=== PATIENT | male | born 1960 | race Caucasian/White ===

== ENCOUNTER → 2017-08-17 15:02 | Outpatient (REF) | payer OTHER, MEDICAID, SELFPAY | LOC: LAB 15:02 | PROVIDERS: Visit Provider Internal Medicine | DX: L08.9 Local infection of the skin and subcutaneous tissue, unspecified (principal) | CPT/HCPCS: 87070; 87075; 87077; 87186; 87205 ==

== ENCOUNTER → 2017-08-17 15:47 | Outpatient (CLI) | payer OTHER, MEDICAID, SELFPAY | PROVIDERS: Visit Provider Internal Medicine | DX: E11.621 Type 2 diabetes mellitus with foot ulcer (principal); E11.65 Type 2 diabetes mellitus with hyperglycemia; L97.522 Non-pressure chronic ulcer of other part of left foot with fat layer exposed; L08.9 Local infection of the skin and subcutaneous tissue, unspecified | CPT/HCPCS: 11042 ==

== ENCOUNTER → 2017-08-21 13:52 | Outpatient (CLI) | payer OTHER, MEDICAID, SELFPAY | PROVIDERS: Visit Provider Internal Medicine | DX: E11.621 Type 2 diabetes mellitus with foot ulcer (principal); E11.65 Type 2 diabetes mellitus with hyperglycemia; L97.521 Non-pressure chronic ulcer of other part of left foot limited to breakdown of skin; L08.89 Other specified local infections of the skin and subcutaneous tissue | CPT/HCPCS: 97597 ==

== ENCOUNTER → 2017-08-28 09:04 | Outpatient (CLI) | payer OTHER, MEDICAID, SELFPAY ==
--- NOTE | 2017-08-28 | OV.WND_ITS ---
Progress Note Details Patient Name: David Givens Patient Number: [id number] PatientPatientDate: 08/28/2017 Clinician: Verito Rocha Clinician Cosigner: Adina Martinez Physician / Territory Account Executive: Jorge Luis Max SUBJECTIVE Chief Complaint This information was obtained from the patient Diabetic ulcer on left foot. Allergies Vicodin (Reaction: itching), codeine (Severity: Mild, Reaction: stomach upset) HPI This information was obtained from the patient 08/28/17. Seen by Dr. Max. The patient only picked up his levofloxacin 3 days ago that was prescribed for the recent E. coli culture taken from the left plantar foot diabetic ulcer. He does not report adverse side effects nor significant drainage from the ulcer. Of note , his blood sugar today is again over 300 and he states he has rhubarb pie last night. He has an appointment with is PCP next week to discuss adjusting his dose of Lantus. 08/21/17. Seen by Dr. Max. The patient's wound culture taken from the recurrent left 1st MTPJ diabetic ulcer grew E. coli and Streptococcus and he's applying topical gentamicin as recommended. The nurse reports maceration and drainage on his dressing today and his blood sugar is again over 300. 08/17/17. Seen by Dr. Max. The patient returns today with recurrence of the left plantar foot 1st MTPJ diabetic foot ulcer that was very chronic but eventually healed in May of this year. He states a callus has been accumulating and it started to drain last week. He does not report pain in the foot nor swelling but states the 1st toe appeared red yesterday however this has now resolved. He uses a wheelchair for offloading and his blood sugars continue to be over 300. He has a history of poor compliance with his diabetes management and resides in assisted living. 06/02/17. Seen by Dr. Max. The patient does not report drainage or pain associated with chronic left foot diabetic ulcer since last visit. 05/26/17. Seen by Rashad Dupont PA-C. The patient does not report increased drainage from his left foot diabetic ulcer. 05/12/17. Seen by Dr. Max. The patient does not report pain nor increased drainage associated with the chronic left plantar foot diabetic ulcer. He also continues on doxycycline for chronic osteomyelitis of the left MTPJ. 05/05/17. Seen by Rashad Dupont PA-C. The patient reports that he will be moving into [facility] this Thursday. He continues to have high blood sugars and is reportedly compliant with his doxycycline (though he thought he was taking levaquin) and he does not report increased drainage. 04/28/17. Seen by Rashad Dupont PA-C. The patient reports having to walk more than normal because his truck ran out of gas this week. He has not noted any drainage from his left foot diabetic ulcer. He continues on Doxycycline for chronic osteomyelitis. His blood sugars have been >200 this week. Of note, he is wearing regular shoes and does not own shoes that are custom fitted to his foot deformities, which have been present for several years. 04/21/17. Seen by Rashad Dupont PA-C. The patient reports minimal drainage from his left 1st toe diabetic ulcer. Today he reports that he believes he was taking Levaquin recently and will be out of antibiotics today. His most recent X-ray of the left foot shows worsening chronic osteomyelitis. 04/18/17. Seen by Rashad Dupont PA-C. The patient reports decreased drainage from his chronic left 1st toe ulcer. He is nearly out of his Augmentin, which he was taking for his ulcer infection. 04/13/17. Seen Dr. Max. The patient returns to our clinic, after being seen on Thursday, due to increased swelling and erythema of the left first toe over the weekend. His first MTPJ diabetic ulcer has improved considerably over the past few weeks and he has been taking Augmentin for an associated group B strep positive wound culture taken last week. He does not report fevers or pain in the foot and his blood sugars continue to be significantly elevated. 04/10/17. Seen by Rashad Dupont PA-C. The patient reports continued redness and warmth despite taking Augmentin for his strep positive ulcer infection of the left 1st toe. He reports missing some doses of the antibiotic however. His blood sugars have been high since he ran out of insulin a few days ago. He is currently still homeless with housing pending and is able to stay in a local motel on most nights. 04/07/17. Seen by Dr. Max. The patient does not report pain nor increased drainage associated with the chronic left plantar foot diabetic ulcer. He's now on Augmentin again for cellulitis of the left 1st toe diagnosed at his last visit and his wound culture grew Group B Strep. He feels the swelling decreased and he does not report fevers, pain, or adverse side effects of the antibiotics. 04/03/17. Seen by Dr. Max. The patient does not report pain nor decreased drainage associated with the chronic left plantar foot diabetic ulcer however he does feel that his left first toe is red and swollen today. He does not report fevers nor feeling on well and has been off antibiotics were treating chronic osteomyelitis of the first MTPJ for at least a week. His blood sugars continue to be persistently elevated and despite establishing with primary care is provider months ago he has not been able to improve upon his diabetes management. 03/27/17. Seen by Dr. Max. The patient does not report increased drainage or pain associated with the chronic left plantar foot diabetic ulcer since his last visit. His wound culture from the last visit grew group B streptococcus and he's not currently on antibiotics. 03/24/17. Seen Dr. Max. The patient is here for a change of his wound VAC however the staff report increased maceration around the left plantar foot diabetic ulcer. He has now been off of antibiotics for about a week and has been treated for chronic osteomyelitis for the past few months. 03/20/17. Seen by Dr. Max. The patient states his wound VAC stopped working earlier in the week and he has not picked up his prescription of Augmentin that was to treat chronic osteomyelitis associated with the left plantar foot diabetic ulcer. Of note, his blood sugar today is again very elevated at 386. 03/11/17. Seen by Dr. Max. The patient states his wound VAC became dysfunctional 2 days ago. He continues on Augmentin for chronic osteomyelitis associated to chronic left plantar foot diabetic ulcer. He does not report pain nor significant drainage from the ulcer nor side effects from antibiotics. 03/06/17. Seen by Dr. Max. The patient does not report increased drainage or pain associated with the chronic left plantar foot diabetic ulcer since his last visit. He states he's continuing on Augmentin for underlying chronic osteomyelitis of the 1st MTPJ as recommended but will run out of antibiotics early next week. 02/27/17. Seen by Dr. Max. The patient does not report pain or increased drainage associated with chronic left plantar foot diabetic ulcer since last visit. His wound VAC was changed to a SID and he tolerated this well without any issues. He continues on Augmentin for underlying chronic osteomyelitis and his blood sugar is again elevated over 300 today despite establishing with primary care and being started on his insulin and metformin. 02/24/17. Seen by Dr. Max. The patient does not report increased pain nor drainage associated with the chronic left plantar foot diabetic ulcer. His blood sugars are again near 400 however he has seen his primary care provider and has been started on insulin and metformin which he will picker tender from the pharmacy today. He continues on antibiotics also for underlying chronic osteomyelitis of the left foot. 02/20/17. Seen by Dr. Max. The patient does not report increased pain nor drainage associated with the chronic left plantar foot diabetic ulcer. Of note he is homeless and his mobility has been limited due to the winter weather recently. He is a bit noncommittal regarding adherence to his antibiotic regimen that's treating underlying chronic osteomyelitis. His blood sugars again are over 300 and he has a history of noncompliance regarding his diabetes management. 02/17/17. Seen by Rashad Dupont PA-C. The patient reports no increase in drainage from his diabetic foot ulcer of the left foot. He reports that his blood sugar is high today because he drank several slurpees from [employer] last night. 02/13/17. Seen by Dr. Max. The patient states that there has been increased drainage associated with the chronic left plantar foot diabetic ulcer over the past few days. The staff also report a significant malodor today. He admits to missing a few days worth of antibiotics as he's been feeling unwell over the past week with an upper respiratory tract infection.He is also scheduled appointment to establish with his primary care provider and of note his blood sugar is again significantly elevated at 293 today. 02/06/17. Seen by Dr. Max. The patient does not report increased drainage nor pain associated with the chronic left plantar foot diabetic ulcer since his last visit. He continues on Augmentin for chronic osteomyelitis of the foot. He also has an appointment with [facility] at the end of the month to address his homeless situation and will establish with his primary care provider in the first week in February to discuss management of his poorly controlled diabetes and other medical issues. 02/03/17. Seen by Rashad Dupont PA-C. The patient reports stable drainage from his left foot diabetic ulcer with underlying chronic osteomyelitis. He is about to finish his current prescription for osteomyelitis and notes no pain or other new symptoms related to this condition. His blood sugars continue to be >200 and he has not yet made an appointment with his PCP to address this. He says he is running out of insulin and has no refills. He continue to be homeless. 01/30/17. Seen by Dr. Max. The patient does not report increased drainage or pain associated with the chronic left plantar foot diabetic ulcer since his last visit. He continues on antibiotics for underlying chronic osteomyelitis and is her primary side effects. He also has an appointment within the next 3 weeks with his establishing primary care provider and we'll be addressing his diabetes management at that time. He also continues to reside in a motel while he is awaiting a decision on possible long-term placement in a attempt to resolve his homeless situation 01/23/17. Seen by Dr. Max. The patient is a report increased drainage from pain associated with the chronic left plantar foot diabetic ulcers since last visit. He is supposed to be continued on Augmentin for associated underlying chronic osteomyelitis however he admits that he has missed a few doses recently and he is establishing with new primary care provider. He also has a social media manager with him today assisting with his housing and healthcare needs. Of note, the patient admits to having a degree of cognitive dysfunction that frequently affects his ability to manage his diabetes medications, antibiotics, and maintain a stable housing situation. 01/20/17. Seen by Rashad Dupont PA-C. The patient reports continued purulent drainage from his left foot diabetic ulcer. He continues to take antibiotics for his chronic osteomyelitis irregularly and reports that his blood sugars continue to be above 200 most days. He remains homeless though states he may have a lead on some housing assistance. Due to his homelessness he walks on his foot more than is recommended. 01/16/17. Seen by Dr. Max. The patient does not report increased drainage associated with the chronic left plantar foot diabetic ulcer. The staff report however that he has missed a few doses of his antibiotics since treating underlying chronic osteomyelitis. Of note, he is homeless and has been sleeping in his car which is relevant in that the temperatures approached freezing overnight and he's not wearing socks other than the non- skid socks we've provided at the clinic. 01/09/17. Seen by Rashad Dupont PA-C. The patient reports increased drainage in his SNAP canister and he is nearly completed with his course of Cipro. His blood sugars continue to be above >150 when he takes them. 01/06/17. Seen by Rashad Dupont PA-C. The patient reports intermittently taking his antibiotics and has been unable to completely offload his ulcer due to being homeless. He reports that most blood sugars in the past few days have been over 200. 01/02/17. Seen by Dr. Max. The patient does not report increased pain or drainage associated with the chronic left plantar foot diabetic ulcer however the wound VAC leaked earlier in the week and was removed. The patient is noncommittal regarding the use of his antibiotics treating chronic osteomyelitis of the left first MTPJ also. He's not report fevers or feeling unwell is also noncommittal regarding 100% offloading that's been recommended. 12/30/16. Seen by Rashad Dupont PA-C. The patient reports intermittent compliance with his antibiotics. He admits he likes to take two tablets for the first dose and also admits to accidentally skipping doses. His foot ulcer has had increased drainage and increased odor. 12/26/16. Seen by Dr. Max. The patient is now taking ciprofloxacin to treat the recent Pseudomonas positive wound culture taken from the chronic left plantar foot diabetic ulcer. He does not report adverse side effects nor increased pain, swelling, or drainage associated with the ulcer. His blood sugars continue to be over 300 and he has not yet followed up on our recommendation to discuss this with his primary care provider to adjust his insulin. 12/23/16. Seen by Rashad Dupont PA-C. The patient reports he has still not been able to obtain his Levaquin to treat his left foot diabetic ulcer infection. Our office has continued to try and facilitate the prior authorization of this medication without success. The patient does not report fever or chills but does report that drainage has soaked through his sock. 12/19/16. Seen by Dr. Max. The patient does not report increased pain or drainage associated with the chronic left plantar foot diabetic ulcers since his last visit. He is started on levofloxacin for the new pseudomonas positive wound culture has not been able to picker tender the antibiotic due to insurance prior authorization issues. 12/16/16. Seen by Dr. Max. The patient does not report increased pain or drainage associated with the chronic left plantar foot diabetic ulcer since last visit. His wound VAC became dysfunctional over the weekend and he presented to the clinic yesterday at which time it was removed. He states he continues to take his antibiotics for chronic osteomyelitis of the left first MTPJ however we are unable to confirm how many tablets he has left and is been rather noncompliant with this in the past. His blood sugars also continue to be significantly elevated. 12/12/16. Seen by Dr. Max. The patient does not report pain nor increased drainage associated with the chronic left plantar foot diabetic ulcer and he continues on antibiotics to treat associated chronic osteomyelitis of the left 1st MTPJ. 12/09/16. Seen by Dr. Max. The patient reports drainage in his shoe and sock today associated with the chronic left plantar foot diabetic ulcer. He states that the wound VAC however appear to be sealed and operating properly over the past few days. He is on amoxicillin for chronic osteomyelitis of the left first MTPJ and complains of some GI upset. 12/05/16. Seen by Dr. Max. The patient is now on amoxicillin for the recent Streptococcus positive wound culture taken as last visit. This is also treating chronic osteomyelitis of the left foot. He does not report adverse side effects nor pain or increased drainage associated with chronic left plantar foot diabetic ulcer. He is also tolerating negative pressure wound therapy without difficulty. 12/02/16. Seen by Dr. Max. The patient presented to clinic yesterday for a nurse visit following a wound vac dysfunction the previous day. He'd left the foam dressing in place however for the previous 24 hours despite being advised to remove it within 2 hours of it not working. He does not report pain at the chronic left diabetic foot ulcer site and he's been off of his antibiotics for 1-2 days (he's unsure of when he stopped taking them) and states he has a few each of the levofloxacin and Augmentin tablets that have been prescribed recently to treat underlying chronic osteomyelitis of the left foot. 11/28/16. Seen by Dr. Max. The patient does not report pain nor increased drainage associated with the chronic left plantar foot diabetic ulcer. He should've completed his course of levofloxacin by now but states that he has a couple of tablets left over. In relation to this he has also not taken his prior antibiotic prescriptions as scheduled. 11/25/16. Seen by Dr. Max. The patient does not report pain nor increased drainage associated with the chronic left plantar foot diabetic ulcer. He has nearly completed his course of levofloxacin that is treating underlying chronic osteomyelitis of the foot and he does not report adverse side effects. Also, his blood sugars are again over 300 and he states he does have an appointment next week week with his primary care provider to address his diabetes. 11/21/16. Seen by Dr. Max. The patient does not report pain in the left foot nor increased drainage associated with chronic plantar diabetic foot ulcer since his last visit. He continues on levofloxacin for chronic osteomyelitis of the left foot and does not report adverse side effects nor fevers or feeling unwell today. 11/18/16. Seen by Dr. Max. The patient does not report pain in the left foot nor increased drainage associated with chronic plantar diabetic foot ulcer since his last visit. He found the levofloxacin that he lost and restarted this over the weekend. He does not report adverse side effects nor fevers or feeling unwell today. 11/14/16. Seen by Dr. Max. The patient's left foot wound VAC fell off yesterday. He also states that he lost his levofloxacin that's treating chronic osteomyelitis of the left foot but he has started taking the Augmentin that he had leftover from his last prescription. He does not report increased drainage associated with a chronic left plantar foot diabetic ulcer however does report some pain at the site. 11/11/16. Seen by Dr. Max. The patient does not report increased drainage associated with a chronic left plantar foot diabetic ulcer and he continues on levofloxacin for underlying chronic osteomyelitis of the left first MTPJ. He does not reporting adverse side effects of antibiotics, fevers, or feeling unwell. His blood sugars continue to be significantly elevated and he is noncommittal regarding checking them and taking his insulin as prescribed. He also has not seen his primary care provider in the last few months as we recommended. 11/07/16. Seen by Dr. Max. The patient is now on levofloxacin and reports some nausea since starting this. He does not report significant drainage or pain associated with chronic left plantar foot diabetic ulcer however since his last visit. 11/04/16. Seen by Dr. Max. The patient states that he completed his Augmentin 2 days ago and he does not report increased drainage or pain associated with the chronic left plantar foot diabetic ulcer nor the underlying chronic osteomyelitis. His recent wound culture grew Klebsiella which is sensitive to Augmentin and he does not report fevers, feeling unwell, or adverse side effects to the antibiotics. 10/31/16. Seen by Dr. Max. The patient's wound VAC began leaking soon after his last visit and was removed at that time. He continues on Augmentin for chronic osteomyelitis associated with the chronic left plantar foot diabetic ulcer and feels that the pain has resolved over the past week. 10/28/16. Seen by Dr. Max. The patient states that the wound VAC started leaking yesterday he presented to the clinic and it was removed with the left plantar foot ulcer filled with alginate. He states he continues to take his antibiotics for chronic osteomyelitis of the foot and does not report adverse side effects. His blood sugars continue to be consistently over 200 however have improved somewhat as they were typically over 300 previously. He does not report fevers, pain in the foot, nor feeling unwell in general. 10/24/16. Seen by Dr. Max. The patient states he has restarted taking his antibiotics as prescribed and he does not report significant drainage associated with chronic left foot diabetic ulcer since his last visit. He also reports the pain has improved and he is not reporting fevers or feeling unwell. He is taking antibiotics for chronic osteomyelitis associated with the ulcer. 10/21/16. Seen by Dr. Max. The patient is not very engaging today and he is noncommittal regarding whether he is taking his antibiotics as prescribed. His recent wound culture grew Klebsiella sensitive to Augmentin however he states that his left foot pain associated with the diabetic ulcer and chronic osteomyelitis has increased over the past week. He does not report fevers however nor feeling unwell and his negative pressure wound therapy was held at last visit due to deterioration of the ulcer and concern for change of infection. 10/17/16. Seen by Dr. Max. The patient reports some pain associated with the chronic left plantar foot diabetic ulcer since his last visit staff report increased maceration in the nunu-ulcer area. He does not report fevers however states that he's not been taking his antibiotic entirely as prescribed. His blood sugars are over 300 again today he states he has been offloading the foot as recommended. 10/14/16. Seen by Dr. Max. The patient reports being more active on his feet the past few days despite wearing a snap negative pressure wound dressing. Does not report increased drainage associated with the left plantar foot diabetic ulcer and continues on Augmentin for chronic osteomyelitis of the foot. His blood sugars are improving somewhat into the 200s and he states he is checking these and taking insulin as recommended. He has not yet followed up with his primary care provider as recommended however in terms of his diabetes management. 10/10/16. Seen by Dr. Max. The patient has restarted his Augmentin as recommended that's treating chronic osteomyelitis of the left foot. He does not report increased drainage associated with the left plantar foot diabetic ulcer since his last visit. His blood sugars continue to be significantly elevated and he has not yet scheduled and appointment with his primary care provider to discuss this. 10/07/16. Seen by Dr. Max. The patient does not report increased drainage associated with the chronic left foot diabetic ulcer. He continues on negative pressure wound therapy and states he forgot to picker tender his antibiotics that are treating chronic osteomyelitis in the foot. His blood sugars continue to be significantly elevated and is noncommittal regarding checking his blood sugars and taking his insulin routinely. 10/03/16. Seen by Dr. Max. The patient states he is nearly out of antibiotics that have been treating chronic osteomyelitis the left foot. He does not report any problems regarding the overlying diabetic foot ulcer nor negative pressure wound therapy. Also, his blood sugars 381 today and has been significantly elevated for months. This is despite his recent statement that he's been checking blood sugars and taking his insulin routinely. 09/30/16. Seen by Dr. Max. The patient does not report significant drainage or other acute issues associated with the chronic left plantar foot diabetic ulcers since his last visit. He continues on antibiotics for underlying osteomyelitis of the foot and does not report fevers or other side effects of antibiotics. He states his blood sugars are improving and are in the 200s this morning and that he's been checking them and taking his insulin as recommended. 09/26/16. Seen by Dr. Max. The patient does not report pain nor increased drainage associated with chronic left plantar foot diabetic ulcer and underlying chronic osteomyelitis since his last visit. Of note, he admits to not necessarily taking all of his antibiotics as recommended and his recent culture grew Klebsiella for which he is to be taken Augmentin. His blood sugars also continue to be elevated over 300 despite the fact he states he's been checking them taking his insulin. 09/23/16. Seen by Dr. Max. The patient does not report increased drainage or other acute changes regarding his chronic left plantar foot diabetic ulcer. He is checking his blood sugars and taking insulin however states that they still are often times over 300. He continues on Augmentin for underlying osteomyelitis of the foot and does not report adverse side effects. 09/21/16. Seen by Rashad Dupont PA-C. The patient reports that he continues to have high blood sugars despite taking 40 units twice daily of insulin. He reports occasionally missing a dose but tries to comply with his orders. He believes he has a follow up appointment soon with his PCP regarding diabetes but is unsure of the date. 09/15/16. Seen by Rashad Dupont PA-C. The patient reports continued difficulty sleeping due to difficulty breathing while supine, though he feels this is somewhat improved as he is reducing his fluid intake. He reports blood sugars consistently above 150 and believes he has an appointment with his PCP to review his diabetic regimen soon. He continues on augmentin for his osteomyelitis and his drainage from his left foot ulcer has been stable. 09/09/16. Seen by Dr. Max. The patient is not very engaging today however does not report any new problems regarding the chronic left plantar foot diabetic ulcer nor the wound VAC. He states he continues to take Augmentin as recommended for associated chronic osteomyelitis of the left first MTPJ and he is offloading as much as possible. He states he is also checking his blood sugars and taking his insulin as recommended however he has been quite noncompliant with this in the past. 09/05/16. Seen by Dr. Max. The patient does not report pain or increased drainage associated with the chronic left plantar foot diabetic ulcer since his last visit. He states he continues on Augmentin for osteomyelitis of the foot and does not report adverse side effects although he's not had a recent Rx written. His recent wound culture grew Klebsiella and group B Strep. 09/02/16. Seen by Rashad Dupont PA-C. The patient reports continued thirst and continued intake of a large amount of water. He reports that it is very difficult for him to resist drinking large amounts of fluids. His blood sugars continue to be over 200 and his chronic left foot diabetic ulcer has had stable drainage. He continues on oral antibiotics for his chronic osteomyelitis of the left foot. 08/29/16. Seen by Dr. Max. The patient does not report pain or increased drainage associated with the chronic left plantar foot diabetic ulcer since his last visit. He continues on Augmentin for osteomyelitis of the foot and does not report adverse side effects. His shortness of breath has improved as has his leg swelling and his recent ECHO showed only some diastolic dysfunction. He does report being very thirsty and drinking over a gallon of water and flavored drinks daily. His blood sugars have also been very poorly controlled over the past few months. 08/22/16. Seen by Dr. Max. The patient does not report pain or increased drainage associated with the chronic left plantar foot diabetic ulcer since his last visit although he's not very engaging today. He continues on Augmentin for osteomyelitis of the foot and does not report adverse side effects. Of note, his shortness of breath has improved as has his leg swelling and his ECHO showed only some diastolic dysfunction. He's not yet discussed this with is PCP however. 08/14/16. Seen by Dr. Max. The patient does not report pain or increased drainage associated with the chronic left plantar foot diabetic ulcer since his last visit. He continues on antibiotics for osteomyelitis of the foot and does not report adverse side effects. 08/19/16. Seen by Rashad Dupont PA-C. The patient reports continued high blood sugars, with all readings so far above 200. He reports stable drainage from her diabetic foot ulcer with underlying osteomyelitis and he has an upcoming echocardiogram to assess his orthopnea, which he reports is somewhat improved recently. He continues on augmentin for his underlying osteomyelitis. 08/15/16. Seen by Dr. Max. The patient does not report pain or significant drainage associated with chronic left plantar foot diabetic ulcer since his last visit. He is tolerating negative pressure wound therapy without difficulty and continues on antibiotics for acute osteomyelitis of the left first metatarsal. His blood sugars are over 400 today and he's non- committal regarding adherence to his insulin regimen. 08/12/16. Seen by Dr. Max. The patient reports that the SNAP wound VAC has not been working for the past day or so however he did not take the dressing off as recommended. The staff reports significant maceration associated with the chronic left plantar foot diabetic ulcer and he continues on antibiotics for underlying osteomyelitis of the first metatarsal. He is not checking blood sugars routinely and they continued to be significantly elevated over 200. He does not report fevers, pain in the foot, or feeling unwell. 08/07/16. Seen by Dr. aMx. The patient does not report pain or significant drainage associated with chronic left plantar foot diabetic ulcer since his last visit. He is tolerating negative pressure wound therapy without difficulty and continues on antibiotics for acute osteomyelitis of the left first metatarsal. 08/04/16. Seen by Rashad Dupont PA-C. The patient reports continued difficulty sleeping due to shortness of breath when supine. He reports continued drainage from his Rivera grade III diabetic ulcer of the left foot. He continues to have very high blood sugars, with most readings above 200. 07/31/16. The patient does not report pain or significant drainage associated with chronic left plantar foot diabetic ulcer since his last visit. He is tolerating negative pressure wound therapy without difficulty and continues on antibiotics for acute osteomyelitis of the left first metatarsal. 07/28/16. Seen by Rashad Dupont PA-C. The patient reports continued drainage from his left foot Rivera grade III diabetic ulcer with underlying osteomyelitis, confirmed again recently on MRI. His blood sugars continue to be mostly above 250. He continues on antibiotics (augmentin until 08/08/16) to treat the chronic infection of this ulcer and to treat his osteomyelitis. 07/25/16. Seen by Dr. Max. The patient does not report pain or significant drainage associated with chronic left plantar foot diabetic ulcer since his last visit. His wound culture from the last visit grew Enterococcus and Strep group B. He is tolerating negative pressure wound therapy without difficulty and continues on antibiotics for acute osteomyelitis of the left first metatarsal. He does not check his blood sugars regularly and is noncommittal regarding taking his insulin as prescribed. He is also not wearing his offloading shoe as recommended. He does not report adverse side effects from the antibiotics, fevers, or feeling unwell in general. 07/23/16. Seen by Dr. Max. The patient does not report increased drainage or pain associated with the chronic left plantar foot diabetic ulcer and he's tolerated the wound VAC over the past few days without any difficulty. He continues on antibiotics for acute osteomyelitis of the left first metatarsal and does not report adverse side effects. He was seen by his primary care provider to establish care and specifically to address his diabetes and some recent shortness of breath which she states is now resolved. He states today that his medications have not been adjusted and he will see his primary care provider in 2 weeks again. His blood sugars continue to be elevated over 300 consistently. 07/21/16. Seen by Rashad Dupont PA-C. The patient reports severe shortness of breath with exertion and when supine, which begain 3 days ago and has worsened. The patient reports fevers and chills but denies chest pain. He has noted increased lower extremity edema during this time as well. He reports that he is unable to sleep because of the shortness of breath, but occasionally passes out from exhaustion. 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 07/17/16. Seen by Dr. Max. The patient continues on Bactrim for osteomyelitis of the left foot and he continues with negative pressure wound therapy to treat the overlying diabetic ulcer. His blood sugars continue to be significantly elevated despite increase his Lantus to 30 units daily. He will establish with his primary care provider early next week. 07/14/16. Seen by Dr. Mxa. The patient continues on Bactrim for osteomyelitis of the left first metatarsaland has tolerated the wound VAC treating the overlying diabetic ulcer without any issues. His blood sugar is 391 today and his Lantus has recently been increased to 20 units daily. He does not report fevers, feeling unwell, or adverse side effects from the Bactrim. 06/30/16. Seen by Dr. Max. The patient continues on antibiotics for his chronic and infected left plantar foot diabetic ulcer. His MRI confirms osteomyelitis of the head of the first metatarsal. He is tolerating negative pressure wound therapy however remains somewhat noncompliant in terms of removal of the wound VAC if it's not working. He is not routinely checking his blood sugars however but states he is taking is 10 units of Lantus as prescribed. He will establish with a primary care provider in about 2 weeks and he does not report fevers or feeling unwell in general. 07/07/16. Seen by Rashad Dupont PA-C. The patient reports that he completed his MRI examination of his left foot today, just before this appointment. He reports continued drainage from his chronic diabetic foot ulcer of the left foot. Due to a labelling error, the wound cultures taken at his last visit were not processed. 07/03/16. Seen by Dr. Max. The patient disconnected his wound vac 2 days ago however did not remove the dressing as instructed. He's also not checking his blood sugars or taking insulin as prescribed and his blood sugars continue to be frequently elevated over 300 while in the clinic. He does not report pain or increased drainage associated with the chronic left foot diabetic ulcer, nor fevers or feeling unwell, since his last visit. 06/30/16. Seen by Rashad Dupont PA-C. The patient reports no increase in drainage from his chronic left foot diabetic ulcer. He reports better compliance with his insulin and glucose checks and reports that many of his sugars are still above 300. 06/26/16. Seen by Dr. Max. The patient does not report any problems regarding his wound VAC and he continues on doxycycline without reporting adverse side effects for the chronic infection of the left plantar foot diabetic ulcer. He's not routinely checking his blood sugars nor taking his insulin as recently prescribed and he's to establish with his new PCP within one month. 06/23/16. Seen by Rashad Dupont PA-C. The patient reports high blood sugars in the past few days despite being prescribed insulin by Dr. Max. The patient admits to forgetting more than 1/2 of his insulin doses since he was prescribed them. His left plantar foot diabetic ulcer has had stable and continued drainage.. 06/20/16. Seen by Dr. Max. The patient does not report any problems regarding his wound VAC and he continues on antibiotics for the chronic infection of the left plantar foot diabetic ulcer. He started insulin recently and states his blood sugars are between 200 and 300 and he is offloading with a wheelchair as much as possible. 06/18/16. Seen by Dr. Max. The patient does not report problems regarding the negative pressure dressing that was placed 2 days ago to treat the chronic left plantar foot diabetic ulcer. He does not report pain in the foot nor increased drainage and he continues on doxycycline for a chronic wound infection. He's also started taking his long acting insulin as prescribed last week and states his appointment to establish care with a new PCP is in about a month. His blood sugars continue to be elevated over 200 however. 06/16/16. Seen by Rashad Dupont PA-C. The patient reports continued blood sugars above 300 and continued drainage from his left plantar foot diabetic ulcer. 06/09/16. Seen by Rashad Dupont PA-C. The patient reports that he has been leaving his leg dependant when he has been sleeping and is noted to have experienced weight gain since his last appointment. He continues to have very high blood sugars and now has an appointment with primary care to establish care. 06/06/16. Seen by Dr. Max. The patient does not report pain nor significant drainage associated with the chronic left foot diabetic ulcer over the past week. Also, his blood sugars are again over 200 today. 05/29/16. Seen by Dr. Max. The patient does not report pain nor significant drainage associated with the chronic left foot diabetic ulcer over the past week. Although he told the staff that he's discussed his diabetes management with a PCP he tells me has not yet re- established with a PCP as we've recommended so has not been checking blood sugars nor taking diabetes medication. 05/22/16. Seen by Dr. Max. The patient does not report pain nor significant drainage associated with the chronic left foot diabetic ulcer over the past week. 05/19/16. Seen by Rashad Dupont PA-C. The patient reports increased drainage from his chronic left foot diabetic ulcer since his last evaluation. The patient is not wearing his [employer] boot to offload his ulcer and he reports very high blood sugars in the previous week. The patient continues to be homeless and reports that he was focused on staying warm during the past few days. 05/12/16. Seen by Rashad Dupont PA-C. The patient reports intermittent compliance with his levaquin usage and has not seen [facility] yet for assessment and fitting of his [employer] boot. In addition he reports a new ulcer on his left 5th toe which began a couple days ago. 05/08/16. Seen by Dr. Max. The patient does not report significant drainage nor pain associated with the chronic left plantar foot diabetic ulcer. He continues on antibiotics for an associated wound infection and does not report adverse side effects.He is also not checking his blood sugars routinely and is currently homeless and living in his car. 05/05/16. Seen by Rahsad Dupont PA-C. The patient returns to our clinic after spending 12 weeks at [facility]. He reports that his left plantar foot diabetic ulcer never fully healed. He also reports that he has a [employer] boot that he thinks still fits but is not wearing it. Currently he is on Bactrim and Cipro for an ulcer infection and reports missing doses frequently of these medications. 07/17/[address] Max. The patient does not report increased drainage, swelling, or erythema associated with his left plantar foot diabetic ulcer. He continues to offload the foot with a cane and wheelchair and is compliant with his antibiotic and diabetes regimens without reporting adverse side effects. 07/13/14 The patient's recent wound culture grew MRSA sensitive to doxycycline. He does not report increased pain, swelling, or drainage associated with the left plantar foot diabetic ulcer nor does he report fever, chills, or shakes as he has previously. He's compliant with his antibiotic and diabetes medications and states his blood sugars are around 150- 200. He's also met with his new PCP in the past week to establish care. 07/06/14 The patient does not report pain in either foot nor fever or chills. He states he's been compliant with his doxycycline and ciprofloxacin regimen as well as his diabetes regimen. He's not yet established with a PCP but has an appointment in October with a provider in [place]. He also states he does not leave his car very often and so has not had a need to use the wheelchair for offloading. 07/03/14 The patient reports that he is taking his antibiotics regularly now and does not report shakes fever or chills. He would prefer a PCP in [place] to one in [place] if he is not able to see someone in town. 06/29/14 The patient states he's been mostly compliant with his antibiotics that now includes doxycycline plus cipro. He feels the left foot swelling and erythema are beginning to improve. He's also taking a lower dose of metformin along with his glipizide and he does not report 'shakes' as he did at the last visit. 06/26/14 The patient states he experienced some intermittent 'shakes' a couple of day ago and felt it was do to his metformin so he stopped taking it. He does not report fever, sweats, or chills however. He says he's been taking cipro as prescribed but he feels the left foot swelling and erythema are slowly progressing. He also admits to not using his wheelchair or can as recommended and walking a good bit over the weekend. 06/22/14 The patient's new to our clinic but was seen twice on consult as an inpatient over the past month. He's a homeless gentleman with a large left 1st MTPJ plantar ulcer and a smaller right lateral 5th MT ulcer. He's now on a 6 week course of ciprofloxacin based on his MRI that showed possible early osteomyelitis in the left 1st MTPJ sesmoid bone. Deep wound cultures from 06/16/14 grew Group A Streptococcs. He feels the swelling and erythema have improved in the left forefoot as has the drainage. He also states his subjective fevers have resolved. He's a newly diagnosed diabetic and is now on Metformin and Glipizide with an A1c 10.2 on 05/17/14 and he states he's compliant with his medication regimen. His arterial doppler showed only mild atherosclerotic disease in the right SFA. Of note, he's not yet established with a PCP at the [facility] and he states he use a wheelchair for mobilizing except for very short walks when he uses a cane to help offload the left foot. Past Medical History This information was obtained from the patient Patient has a medical history of: Diabetes, type II (A1c > 14 05/23/16; 10.2 06/06/14) Osteomyelitis (left 1st MTPJ sesmoid) Homeless Diabetic foot ulcer - 06/06/2014 (left 1st MTPJ; Rivera grade III with osteomyelitis; MRSA positive deep wound culture 07/11/14) Diabetic foot ulcer - 06/22/2014 (right 5th MT; Rivera grade I) Complaints and Symptoms This information was obtained from the patient Patient complains of: General Notes: I have reviewed and concur with the Review of Systems and Past Family Social History documents completed by the clinician, I have reviewed and concur with the Wound Assessment document completed by the clinician Integumentary (Hair/Skin/Nails): Open Sore Musculoskeletal: Assistive Devices Neurological: Abnormal Gait, Loss of Protective Sensation Prior Wound History: Drainage, Erythema, Malodor Psychiatric: Depression Patient denies complaints or symptoms related to: Cardiovascular (Central): Irregular heart beat Cardiovascular (Central/Peripheral): Lower extremity (leg) resting pain, Lower extremity (leg) swelling Cardiovascular (Peripheral) Constitutional Symptoms (General Health): Chills, Fever, Marked Weight Change Ear/Nose/Mouth/Throat: Hearing Loss / Aid Gastrointestinal (GI): Nausea / Vomiting, Stomach/abdominal pain Hematologic/Lymphatic: Bleeding / Clotting Disorders, Bleeding Tendency Musculoskeletal: Joint Swelling, Muscle Weakness Prior Wound History: Bleeding, Pain Psychiatric: Memory Loss Respiratory: Oxygen Use, Shortness of Breath OBJECTIVE Constitutional BP elevated; Afebrile; Alert and in no distress. Dishelved. Height/Length: 72 in (182.88 cm), Weight: 268.5 lbs (122.05 kgs), BMI: 36.4, Temperature: 98.5 ?F (36.94 ?C), Pulse: 94 bpm, Respiratory Rate: 18 breaths/min, Blood Pressure: 154/81 mmHg, Capillary Blood Glucose: 310 mg/dl, Pulse Oximetry: 95 %. Vital Signs Notes: Glucose per patient Ears, Nose, Mouth, and Throat: No clinically significant hearing loss on informal examination. Respiratory: No respiratory distress. Even respirations and without use of accessory muscles.. Cardiovascular: Pedal pulses 2+ on affected limb. Affected extremity exhibits no peripheral edema or cyanosis, is warm, and is well perfused. Capillary refill is less than 2 seconds. Gastrointestinal (GI): Obese. Nondistended.. Musculoskeletal: Severe left foot Charcot deformity. Integumentary (Hair, Skin) No periwound erythema, warmth, or significant drainage. No periwound rashes appreciated or noted otherwise.. Refer to appropriate clinician wound documentation for this visit; left foot ulcer extends to dermis with base partially covered with pink granulation, remainder fibrin and slough. Maceration and callus present in the periwound area. Wound #5 Left, Plantar Foot is a chronic Rivera Grade 2 Diabetic Ulcer and has received a status of Not Healed. Subsequent wound encounter measurements are 0.2cm length x 0.2cm width x 0.2cm depth, with an area of 0.04 sq cm and a volume of 0.008 cubic cm. No tunneling has been noted. No sinus tract has been noted. No undermining has been noted. There is a scant amount of serous drainage noted which has no odor. The patient reports no wound pain due to the wound being insensate. The wound margin is callus. Wound bed has No epithelialization, Yes eschar, Yes slough, Yes bright red, pink, firm granulation. The periwound skin texture is normal. The periwound skin color is normal. The periwound skin exhibited: Dry/Scaly. The periwound skin did not exhibit: Moist, Maceration. The temperature of the periwound skin is WNL. Periwound skin does not exhibit signs or symptoms of infection. Local Pulse is Palpable. Neurological: Cranial nerves grossly intact with symmetric function normal by informal observation.. ASSESSMENT Active Problems ICD-10 (Encounter Diagnosis) L97.522 - Non-pressure chronic ulcer of other part of left foot with fat layer exposed (Encounter Diagnosis) E11.621 - Type 2 diabetes mellitus with foot ulcer (Encounter Diagnosis) E11.65 - Type 2 diabetes mellitus with hyperglycemia (Encounter Diagnosis) L08.89 - Other specified local infections of the skin and subcutaneous tissue (Encounter Diagnosis) Z91.19 - Patient's noncompliance with other medical treatment and regimen PROCEDURES Wound #5 Wound #5 (Diabetic Ulcer) is located on the left, plantar foot. A selective debridement with a total area debrided of 0.04 sq cm was performed by Jorge Luis Max MD. Dermis and Epidermis were removed. The following instrument(s) were used: curette. No anesthetic was required due to loss of sensation. A time out was conducted prior to the start of the procedure. No bleeding occurred. The procedure was tolerated well with a loss of sensation throughout and a loss of sensation following the procedure. Post Debridement Measurements: 0.2cm length x 0.2cm width x 0.2cm depth; with an area of 0.04 sq cm and a volume of 0.008 cubic cm; PLAN Wound Orders: Wound #5 Left, Plantar Foot Topical Treatments Antibiotic/Antimicrobial Ointment/Cream. - Gentamicin ointment Dressings Primary dressing: - Foam Cover and secure with: - Tape Change Dressing: - Daily Additional Orders: Cleanser Cleanse Wound: - Normal Saline and gauze. May Shower. - Please avoid getting tap water in wound or on dressing. Cover while in shower. Follow-Up Appointments Return Appointment: - - Thursday Other information: If you develop fever, chills, increased pain, drainage, redness or swelling please call our office. If after hours, respond to the ER. Should you experience any significant changes in your wound(s) or have any questions regarding your home care instructions please contact the [facility] @ [phone]. If after hours, contact your primary care physician or go to the hospital emergency room. Scribing Attestation I attest, as the nurse, that I scribed these orders for the physician. General Notes: Please finished taking your antibiotic as prescribed I've reviewed the clinician's documentation and agree with the evaluation and plan as written. In addition, the patient's ulcer demonstrates evidence of non-viable devitalized tissue which will continue to benefit from sharp debridement to help promote granulation and expedite healing. Also, the patient will complete his course of antibiotics as prescribed and he' s been encouraged to follow up with his PCP regarding his diabetes management and frequently elevated blood sugars. Electronic Signature(s) Signed By: Date: Jorge Luis Max MD 08/30/2017 14:27:05 Entered By: Jorge Luis Max on 08/28/2017 12:46:35
== END ==
PROVIDERS: Visit Provider Internal Medicine
DX: E11.621 Type 2 diabetes mellitus with foot ulcer (principal); E11.65 Type 2 diabetes mellitus with hyperglycemia; L97.521 Non-pressure chronic ulcer of other part of left foot limited to breakdown of skin; L08.89 Other specified local infections of the skin and subcutaneous tissue; Z91.19 Patient's noncompliance with other medical treatment and regimen
CPT/HCPCS: 97597

== ENCOUNTER → 2017-09-04 09:17 | Outpatient (CLI) | payer OTHER, MEDICAID, SELFPAY ==
--- NOTE | 2017-09-04 | OV.WND_ITS ---
Progress Note Details Patient Name: David Givens Patient Number: [id number] PatientPatientDate: 09/04/2017 Clinician: Adina Martinez Physician / Bridges Supervisor: Henrry Dupont SUBJECTIVE Chief Complaint This information was obtained from the patient Diabetic ulcer on left foot. Allergies Vicodin (Reaction: itching), codeine (Severity: Mild, Reaction: stomach upset) HPI This information was obtained from the patient 09/04/17. Seen by Rashad Dupont PA-C. The patient reports minimal drainage from his left foot ulcer. His blood sugars continue to be >150 on most days. 08/28/17. Seen by Dr. Max. The patient only picked up his levofloxacin 3 days ago that was prescribed for the recent E. coli culture taken from the left plantar foot diabetic ulcer. He does not report adverse side effects nor significant drainage from the ulcer. Of note , his blood sugar today is again over 300 and he states he has rhubarb pie last night. He has an appointment with is PCP next week to discuss adjusting his dose of Lantus. 08/21/17. Seen by Dr. Max. The patient's wound culture taken from the recurrent left 1st MTPJ diabetic ulcer grew E. coli and Streptococcus and he's applying topical gentamicin as recommended. The nurse reports maceration and drainage on his dressing today and his blood sugar is again over 300. 08/17/17. Seen by Dr. Max. The patient returns today with recurrence of the left plantar foot 1st MTPJ diabetic foot ulcer that was very chronic but eventually healed in May of this year. He states a callus has been accumulating and it started to drain last week. He does not report pain in the foot nor swelling but states the 1st toe appeared red yesterday however this has now resolved. He uses a wheelchair for offloading and his blood sugars continue to be over 300. He has a history of poor compliance with his diabetes management and resides in assisted living. 06/02/17. Seen by Dr. Max. The patient does not report drainage or pain associated with chronic left foot diabetic ulcer since last visit. 05/26/17. Seen by Rashad Dupont PA-C. The patient does not report increased drainage from his left foot diabetic ulcer. 05/12/17. Seen by Dr. Max. The patient does not report pain nor increased drainage associated with the chronic left plantar foot diabetic ulcer. He also continues on doxycycline for chronic osteomyelitis of the left MTPJ. 05/05/17. Seen by Rashad Dupont PA-C. The patient reports that he will be moving into [facility] this Thursday. He continues to have high blood sugars and is reportedly compliant with his doxycycline (though he thought he was taking levaquin) and he does not report increased drainage. 04/28/17. Seen by Rashad Dupont PA-C. The patient reports having to walk more than normal because his truck ran out of gas this week. He has not noted any drainage from his left foot diabetic ulcer. He continues on Doxycycline for chronic osteomyelitis. His blood sugars have been >200 this week. Of note, he is wearing regular shoes and does not own shoes that are custom fitted to his foot deformities, which have been present for several years. 04/21/17. Seen by Rashad Dupont PA-C. The patient reports minimal drainage from his left 1st toe diabetic ulcer. Today he reports that he believes he was taking Levaquin recently and will be out of antibiotics today. His most recent X-ray of the left foot shows worsening chronic osteomyelitis. 04/18/17. Seen by Rashad Dupont PA-C. The patient reports decreased drainage from his chronic left 1st toe ulcer. He is nearly out of his Augmentin, which he was taking for his ulcer infection. 04/13/17. Seen Dr. Max. The patient returns to our clinic, after being seen on Thursday, due to increased swelling and erythema of the left first toe over the weekend. His first MTPJ diabetic ulcer has improved considerably over the past few weeks and he has been taking Augmentin for an associated group B strep positive wound culture taken last week. He does not report fevers or pain in the foot and his blood sugars continue to be significantly elevated. 04/10/17. Seen by Rashad Dupont PA-C. The patient reports continued redness and warmth despite taking Augmentin for his strep positive ulcer infection of the left 1st toe. He reports missing some doses of the antibiotic however. His blood sugars have been high since he ran out of insulin a few days ago. He is currently still homeless with housing pending and is able to stay in a local motel on most nights. 04/07/17. Seen by Dr. Max. The patient does not report pain nor increased drainage associated with the chronic left plantar foot diabetic ulcer. He's now on Augmentin again for cellulitis of the left 1st toe diagnosed at his last visit and his wound culture grew Group B Strep. He feels the swelling decreased and he does not report fevers, pain, or adverse side effects of the antibiotics. 04/03/17. Seen by Dr. Max. The patient does not report pain nor decreased drainage associated with the chronic left plantar foot diabetic ulcer however he does feel that his left first toe is red and swollen today. He does not report fevers nor feeling on well and has been off antibiotics were treating chronic osteomyelitis of the first MTPJ for at least a week. His blood sugars continue to be persistently elevated and despite establishing with primary care is provider months ago he has not been able to improve upon his diabetes management. 03/27/17. Seen by Dr. Mxa. The patient does not report increased drainage or pain associated with the chronic left plantar foot diabetic ulcer since his last visit. His wound culture from the last visit grew group B streptococcus and he's not currently on antibiotics. 03/24/17. Seen Dr. Max. The patient is here for a change of his wound VAC however the staff report increased maceration around the left plantar foot diabetic ulcer. He has now been off of antibiotics for about a week and has been treated for chronic osteomyelitis for the past few months. 03/20/17. Seen by Dr. Max. The patient states his wound VAC stopped working earlier in the week and he has not picked up his prescription of Augmentin that was to treat chronic osteomyelitis associated with the left plantar foot diabetic ulcer. Of note, his blood sugar today is again very elevated at 386. 03/11/17. Seen by Dr. Max. The patient states his wound VAC became dysfunctional 2 days ago. He continues on Augmentin for chronic osteomyelitis associated to chronic left plantar foot diabetic ulcer. He does not report pain nor significant drainage from the ulcer nor side effects from antibiotics. 03/06/17. Seen by Dr. Max. The patient does not report increased drainage or pain associated with the chronic left plantar foot diabetic ulcer since his last visit. He states he's continuing on Augmentin for underlying chronic osteomyelitis of the 1st MTPJ as recommended but will run out of antibiotics early next week. 02/27/17. Seen by Dr. Max. The patient does not report pain or increased drainage associated with chronic left plantar foot diabetic ulcer since last visit. His wound VAC was changed to a SID and he tolerated this well without any issues. He continues on Augmentin for underlying chronic osteomyelitis and his blood sugar is again elevated over 300 today despite establishing with primary care and being started on his insulin and metformin. 02/24/17. Seen by Dr. Max. The patient does not report increased pain nor drainage associated with the chronic left plantar foot diabetic ulcer. His blood sugars are again near 400 however he has seen his primary care provider and has been started on insulin and metformin which he will pick up operator from the pharmacy today. He continues on antibiotics also for underlying chronic osteomyelitis of the left foot. 02/20/17. Seen by Dr. Max. The patient does not report increased pain nor drainage associated with the chronic left plantar foot diabetic ulcer. Of note he is homeless and his mobility has been limited due to the winter weather recently. He is a bit noncommittal regarding adherence to his antibiotic regimen that's treating underlying chronic osteomyelitis. His blood sugars again are over 300 and he has a history of noncompliance regarding his diabetes management. 02/17/17. Seen by Rashad Dupont PA-C. The patient reports no increase in drainage from his diabetic foot ulcer of the left foot. He reports that his blood sugar is high today because he drank several slurpees from [employer] last night. 02/13/17. Seen by Dr. Max. The patient states that there has been increased drainage associated with the chronic left plantar foot diabetic ulcer over the past few days. The staff also report a significant malodor today. He admits to missing a few days worth of antibiotics as he's been feeling unwell over the past week with an upper respiratory tract infection.He is also scheduled appointment to establish with his primary care provider and of note his blood sugar is again significantly elevated at 293 today. 02/06/17. Seen by Dr. Max. The patient does not report increased drainage nor pain associated with the chronic left plantar foot diabetic ulcer since his last visit. He continues on Augmentin for chronic osteomyelitis of the foot. He also has an appointment with [facility] at the end of the month to address his homeless situation and will establish with his primary care provider in the first week in February to discuss management of his poorly controlled diabetes and other medical issues. 02/03/17. Seen by Rashad Dupont PA-C. The patient reports stable drainage from his left foot diabetic ulcer with underlying chronic osteomyelitis. He is about to finish his current prescription for osteomyelitis and notes no pain or other new symptoms related to this condition. His blood sugars continue to be >200 and he has not yet made an appointment with his PCP to address this. He says he is running out of insulin and has no refills. He continue to be homeless. 01/30/17. Seen by Dr. Max. The patient does not report increased drainage or pain associated with the chronic left plantar foot diabetic ulcer since his last visit. He continues on antibiotics for underlying chronic osteomyelitis and is her primary side effects. He also has an appointment within the next 3 weeks with his establishing primary care provider and we'll be addressing his diabetes management at that time. He also continues to reside in a motel while he is awaiting a decision on possible long-term placement in a attempt to resolve his homeless situation 01/23/17. Seen by Dr. Max. The patient is a report increased drainage from pain associated with the chronic left plantar foot diabetic ulcers since last visit. He is supposed to be continued on Augmentin for associated underlying chronic osteomyelitis however he admits that he has missed a few doses recently and he is establishing with new primary care provider. He also has a delinquency prevention social worker with him today assisting with his housing and healthcare needs. Of note, the patient admits to having a degree of cognitive dysfunction that frequently affects his ability to manage his diabetes medications, antibiotics, and maintain a stable housing situation. 01/20/17. Seen by Rashad Dupont PA-C. The patient reports continued purulent drainage from his left foot diabetic ulcer. He continues to take antibiotics for his chronic osteomyelitis irregularly and reports that his blood sugars continue to be above 200 most days. He remains homeless though states he may have a lead on some housing assistance. Due to his homelessness he walks on his foot more than is recommended. 01/16/17. Seen by Dr. Max. The patient does not report increased drainage associated with the chronic left plantar foot diabetic ulcer. The staff report however that he has missed a few doses of his antibiotics since treating underlying chronic osteomyelitis. Of note, he is homeless and has been sleeping in his car which is relevant in that the temperatures approached freezing overnight and he's not wearing socks other than the non- skid socks we've provided at the clinic. 01/09/17. Seen by Rashad Dupont PA-C. The patient reports increased drainage in his SNAP canister and he is nearly completed with his course of Cipro. His blood sugars continue to be above >150 when he takes them. 01/06/17. Seen by Rashad Dupont PA-C. The patient reports intermittently taking his antibiotics and has been unable to completely offload his ulcer due to being homeless. He reports that most blood sugars in the past few days have been over 200. 01/02/17. Seen by Dr. Max. The patient does not report increased pain or drainage associated with the chronic left plantar foot diabetic ulcer however the wound VAC leaked earlier in the week and was removed. The patient is noncommittal regarding the use of his antibiotics treating chronic osteomyelitis of the left first MTPJ also. He's not report fevers or feeling unwell is also noncommittal regarding 100% offloading that's been recommended. 12/30/16. Seen by Rashad Dupnot PA-C. The patient reports intermittent compliance with his antibiotics. He admits he likes to take two tablets for the first dose and also admits to accidentally skipping doses. His foot ulcer has had increased drainage and increased odor. 12/26/16. Seen by Dr. Max. The patient is now taking ciprofloxacin to treat the recent Pseudomonas positive wound culture taken from the chronic left plantar foot diabetic ulcer. He does not report adverse side effects nor increased pain, swelling, or drainage associated with the ulcer. His blood sugars continue to be over 300 and he has not yet followed up on our recommendation to discuss this with his primary care provider to adjust his insulin. 12/23/16. Seen by Rashad Dupont PA-C. The patient reports he has still not been able to obtain his Levaquin to treat his left foot diabetic ulcer infection. Our office has continued to try and facilitate the prior authorization of this medication without success. The patient does not report fever or chills but does report that drainage has soaked through his sock. 12/19/16. Seen by Dr. Max. The patient does not report increased pain or drainage associated with the chronic left plantar foot diabetic ulcers since his last visit. He is started on levofloxacin for the new pseudomonas positive wound culture has not been able to pick up operator the antibiotic due to insurance prior authorization issues. 12/16/16. Seen by Dr. Max. The patient does not report increased pain or drainage associated with the chronic left plantar foot diabetic ulcer since last visit. His wound VAC became dysfunctional over the weekend and he presented to the clinic yesterday at which time it was removed. He states he continues to take his antibiotics for chronic osteomyelitis of the left first MTPJ however we are unable to confirm how many tablets he has left and is been rather noncompliant with this in the past. His blood sugars also continue to be significantly elevated. 12/12/16. Seen by Dr. Max. The patient does not report pain nor increased drainage associated with the chronic left plantar foot diabetic ulcer and he continues on antibiotics to treat associated chronic osteomyelitis of the left 1st MTPJ. 12/09/16. Seen by Dr. Max. The patient reports drainage in his shoe and sock today associated with the chronic left plantar foot diabetic ulcer. He states that the wound VAC however appear to be sealed and operating properly over the past few days. He is on amoxicillin for chronic osteomyelitis of the left first MTPJ and complains of some GI upset. 12/05/16. Seen by Dr. Max. The patient is now on amoxicillin for the recent Streptococcus positive wound culture taken as last visit. This is also treating chronic osteomyelitis of the left foot. He does not report adverse side effects nor pain or increased drainage associated with chronic left plantar foot diabetic ulcer. He is also tolerating negative pressure wound therapy without difficulty. 12/02/16. Seen by Dr. Max. The patient presented to clinic yesterday for a nurse visit following a wound vac dysfunction the previous day. He'd left the foam dressing in place however for the previous 24 hours despite being advised to remove it within 2 hours of it not working. He does not report pain at the chronic left diabetic foot ulcer site and he's been off of his antibiotics for 1-2 days (he's unsure of when he stopped taking them) and states he has a few each of the levofloxacin and Augmentin tablets that have been prescribed recently to treat underlying chronic osteomyelitis of the left foot. 11/28/16. Seen by Dr. Max. The patient does not report pain nor increased drainage associated with the chronic left plantar foot diabetic ulcer. He should've completed his course of levofloxacin by now but states that he has a couple of tablets left over. In relation to this he has also not taken his prior antibiotic prescriptions as scheduled. 11/25/16. Seen by Dr. Max. The patient does not report pain nor increased drainage associated with the chronic left plantar foot diabetic ulcer. He has nearly completed his course of levofloxacin that is treating underlying chronic osteomyelitis of the foot and he does not report adverse side effects. Also, his blood sugars are again over 300 and he states he does have an appointment next week week with his primary care provider to address his diabetes. 11/21/16. Seen by Dr. Max. The patient does not report pain in the left foot nor increased drainage associated with chronic plantar diabetic foot ulcer since his last visit. He continues on levofloxacin for chronic osteomyelitis of the left foot and does not report adverse side effects nor fevers or feeling unwell today. 11/18/16. Seen by Dr. Max. The patient does not report pain in the left foot nor increased drainage associated with chronic plantar diabetic foot ulcer since his last visit. He found the levofloxacin that he lost and restarted this over the weekend. He does not report adverse side effects nor fevers or feeling unwell today. 11/14/16. Seen by Dr. Max. The patient's left foot wound VAC fell off yesterday. He also states that he lost his levofloxacin that's treating chronic osteomyelitis of the left foot but he has started taking the Augmentin that he had leftover from his last prescription. He does not report increased drainage associated with a chronic left plantar foot diabetic ulcer however does report some pain at the site. 11/11/16. Seen by Dr. Max. The patient does not report increased drainage associated with a chronic left plantar foot diabetic ulcer and he continues on levofloxacin for underlying chronic osteomyelitis of the left first MTPJ. He does not reporting adverse side effects of antibiotics, fevers, or feeling unwell. His blood sugars continue to be significantly elevated and he is noncommittal regarding checking them and taking his insulin as prescribed. He also has not seen his primary care provider in the last few months as we recommended. 11/07/16. Seen by Dr. Max. The patient is now on levofloxacin and reports some nausea since starting this. He does not report significant drainage or pain associated with chronic left plantar foot diabetic ulcer however since his last visit. 11/04/16. Seen by Dr. Max. The patient states that he completed his Augmentin 2 days ago and he does not report increased drainage or pain associated with the chronic left plantar foot diabetic ulcer nor the underlying chronic osteomyelitis. His recent wound culture grew Klebsiella which is sensitive to Augmentin and he does not report fevers, feeling unwell, or adverse side effects to the antibiotics. 10/31/16. Seen by Dr. Max. The patient's wound VAC began leaking soon after his last visit and was removed at that time. He continues on Augmentin for chronic osteomyelitis associated with the chronic left plantar foot diabetic ulcer and feels that the pain has resolved over the past week. 10/28/16. Seen by Dr. Max. The patient states that the wound VAC started leaking yesterday he presented to the clinic and it was removed with the left plantar foot ulcer filled with alginate. He states he continues to take his antibiotics for chronic osteomyelitis of the foot and does not report adverse side effects. His blood sugars continue to be consistently over 200 however have improved somewhat as they were typically over 300 previously. He does not report fevers, pain in the foot, nor feeling unwell in general. 10/24/16. Seen by Dr. Max. The patient states he has restarted taking his antibiotics as prescribed and he does not report significant drainage associated with chronic left foot diabetic ulcer since his last visit. He also reports the pain has improved and he is not reporting fevers or feeling unwell. He is taking antibiotics for chronic osteomyelitis associated with the ulcer. 10/21/16. Seen by Dr. Max. The patient is not very engaging today and he is noncommittal regarding whether he is taking his antibiotics as prescribed. His recent wound culture grew Klebsiella sensitive to Augmentin however he states that his left foot pain associated with the diabetic ulcer and chronic osteomyelitis has increased over the past week. He does not report fevers however nor feeling unwell and his negative pressure wound therapy was held at last visit due to deterioration of the ulcer and concern for change of infection. 10/17/16. Seen by Dr. Max. The patient reports some pain associated with the chronic left plantar foot diabetic ulcer since his last visit staff report increased maceration in the nunu-ulcer area. He does not report fevers however states that he's not been taking his antibiotic entirely as prescribed. His blood sugars are over 300 again today he states he has been offloading the foot as recommended. 10/14/16. Seen by Dr. Max. The patient reports being more active on his feet the past few days despite wearing a snap negative pressure wound dressing. Does not report increased drainage associated with the left plantar foot diabetic ulcer and continues on Augmentin for chronic osteomyelitis of the foot. His blood sugars are improving somewhat into the 200s and he states he is checking these and taking insulin as recommended. He has not yet followed up with his primary care provider as recommended however in terms of his diabetes management. 10/10/16. Seen by Dr. Max. The patient has restarted his Augmentin as recommended that's treating chronic osteomyelitis of the left foot. He does not report increased drainage associated with the left plantar foot diabetic ulcer since his last visit. His blood sugars continue to be significantly elevated and he has not yet scheduled and appointment with his primary care provider to discuss this. 10/07/16. Seen by Dr. Max. The patient does not report increased drainage associated with the chronic left foot diabetic ulcer. He continues on negative pressure wound therapy and states he forgot to pick up operator his antibiotics that are treating chronic osteomyelitis in the foot. His blood sugars continue to be significantly elevated and is noncommittal regarding checking his blood sugars and taking his insulin routinely. 10/03/16. Seen by Dr. Max. The patient states he is nearly out of antibiotics that have been treating chronic osteomyelitis the left foot. He does not report any problems regarding the overlying diabetic foot ulcer nor negative pressure wound therapy. Also, his blood sugars 381 today and has been significantly elevated for months. This is despite his recent statement that he's been checking blood sugars and taking his insulin routinely. 09/30/16. Seen by Dr. Max. The patient does not report significant drainage or other acute issues associated with the chronic left plantar foot diabetic ulcers since his last visit. He continues on antibiotics for underlying osteomyelitis of the foot and does not report fevers or other side effects of antibiotics. He states his blood sugars are improving and are in the 200s this morning and that he's been checking them and taking his insulin as recommended. 09/26/16. Seen by Dr. Max. The patient does not report pain nor increased drainage associated with chronic left plantar foot diabetic ulcer and underlying chronic osteomyelitis since his last visit. Of note, he admits to not necessarily taking all of his antibiotics as recommended and his recent culture grew Klebsiella for which he is to be taken Augmentin. His blood sugars also continue to be elevated over 300 despite the fact he states he's been checking them taking his insulin. 09/23/16. Seen by Dr. Max. The patient does not report increased drainage or other acute changes regarding his chronic left plantar foot diabetic ulcer. He is checking his blood sugars and taking insulin however states that they still are often times over 300. He continues on Augmentin for underlying osteomyelitis of the foot and does not report adverse side effects. 09/21/16. Seen by Rashad Dupont PA-C. The patient reports that he continues to have high blood sugars despite taking 40 units twice daily of insulin. He reports occasionally missing a dose but tries to comply with his orders. He believes he has a follow up appointment soon with his PCP regarding diabetes but is unsure of the date. 09/15/16. Seen by Rashad Dupont PA-C. The patient reports continued difficulty sleeping due to difficulty breathing while supine, though he feels this is somewhat improved as he is reducing his fluid intake. He reports blood sugars consistently above 150 and believes he has an appointment with his PCP to review his diabetic regimen soon. He continues on augmentin for his osteomyelitis and his drainage from his left foot ulcer has been stable. 09/09/16. Seen by Dr. Max. The patient is not very engaging today however does not report any new problems regarding the chronic left plantar foot diabetic ulcer nor the wound VAC. He states he continues to take Augmentin as recommended for associated chronic osteomyelitis of the left first MTPJ and he is offloading as much as possible. He states he is also checking his blood sugars and taking his insulin as recommended however he has been quite noncompliant with this in the past. 09/05/16. Seen by Dr. Max. The patient does not report pain or increased drainage associated with the chronic left plantar foot diabetic ulcer since his last visit. He states he continues on Augmentin for osteomyelitis of the foot and does not report adverse side effects although he's not had a recent Rx written. His recent wound culture grew Klebsiella and group B Strep. 09/02/16. Seen by Rashad Dupont PA-C. The patient reports continued thirst and continued intake of a large amount of water. He reports that it is very difficult for him to resist drinking large amounts of fluids. His blood sugars continue to be over 200 and his chronic left foot diabetic ulcer has had stable drainage. He continues on oral antibiotics for his chronic osteomyelitis of the left foot. 08/29/16. Seen by Dr. Max. The patient does not report pain or increased drainage associated with the chronic left plantar foot diabetic ulcer since his last visit. He continues on Augmentin for osteomyelitis of the foot and does not report adverse side effects. His shortness of breath has improved as has his leg swelling and his recent ECHO showed only some diastolic dysfunction. He does report being very thirsty and drinking over a gallon of water and flavored drinks daily. His blood sugars have also been very poorly controlled over the past few months. 08/22/16. Seen by Dr. Max. The patient does not report pain or increased drainage associated with the chronic left plantar foot diabetic ulcer since his last visit although he's not very engaging today. He continues on Augmentin for osteomyelitis of the foot and does not report adverse side effects. Of note, his shortness of breath has improved as has his leg swelling and his ECHO showed only some diastolic dysfunction. He's not yet discussed this with is PCP however. 08/14/16. Seen by Dr. Max. The patient does not report pain or increased drainage associated with the chronic left plantar foot diabetic ulcer since his last visit. He continues on antibiotics for osteomyelitis of the foot and does not report adverse side effects. 08/19/16. Seen by Rashad Dupont PA-C. The patient reports continued high blood sugars, with all readings so far above 200. He reports stable drainage from her diabetic foot ulcer with underlying osteomyelitis and he has an upcoming echocardiogram to assess his orthopnea, which he reports is somewhat improved recently. He continues on augmentin for his underlying osteomyelitis. 08/15/16. Seen by Dr. Max. The patient does not report pain or significant drainage associated with chronic left plantar foot diabetic ulcer since his last visit. He is tolerating negative pressure wound therapy without difficulty and continues on antibiotics for acute osteomyelitis of the left first metatarsal. His blood sugars are over 400 today and he's non- committal regarding adherence to his insulin regimen. 08/12/16. Seen by Dr. Max. The patient reports that the SNAP wound VAC has not been working for the past day or so however he did not take the dressing off as recommended. The staff reports significant maceration associated with the chronic left plantar foot diabetic ulcer and he continues on antibiotics for underlying osteomyelitis of the first metatarsal. He is not checking blood sugars routinely and they continued to be significantly elevated over 200. He does not report fevers, pain in the foot, or feeling unwell. 08/07/16. Seen by Dr. Max. The patient does not report pain or significant drainage associated with chronic left plantar foot diabetic ulcer since his last visit. He is tolerating negative pressure wound therapy without difficulty and continues on antibiotics for acute osteomyelitis of the left first metatarsal. 08/04/16. Seen by Rashad Dupont PA-C. The patient reports continued difficulty sleeping due to shortness of breath when supine. He reports continued drainage from his Rivera grade III diabetic ulcer of the left foot. He continues to have very high blood sugars, with most readings above 200. 07/31/16. The patient does not report pain or significant drainage associated with chronic left plantar foot diabetic ulcer since his last visit. He is tolerating negative pressure wound therapy without difficulty and continues on antibiotics for acute osteomyelitis of the left first metatarsal. 07/28/16. Seen by Rashad Dupont PA-C. The patient reports continued drainage from his left foot Rivera grade III diabetic ulcer with underlying osteomyelitis, confirmed again recently on MRI. His blood sugars continue to be mostly above 250. He continues on antibiotics (augmentin until 08/08/16) to treat the chronic infection of this ulcer and to treat his osteomyelitis. 07/25/16. Seen by Dr. Max. The patient does not report pain or significant drainage associated with chronic left plantar foot diabetic ulcer since his last visit. His wound culture from the last visit grew Enterococcus and Strep group B. He is tolerating negative pressure wound therapy without difficulty and continues on antibiotics for acute osteomyelitis of the left first metatarsal. He does not check his blood sugars regularly and is noncommittal regarding taking his insulin as prescribed. He is also not wearing his offloading shoe as recommended. He does not report adverse side effects from the antibiotics, fevers, or feeling unwell in general. 07/23/16. Seen by Dr. Max. The patient does not report increased drainage or pain associated with the chronic left plantar foot diabetic ulcer and he's tolerated the wound VAC over the past few days without any difficulty. He continues on antibiotics for acute osteomyelitis of the left first metatarsal and does not report adverse side effects. He was seen by his primary care provider to establish care and specifically to address his diabetes and some recent shortness of breath which she states is now resolved. He states today that his medications have not been adjusted and he will see his primary care provider in 2 weeks again. His blood sugars continue to be elevated over 300 consistently. 07/21/16. Seen by Rashad Dupont PA-C. The patient reports severe shortness of breath with exertion and when supine, which begain 3 days ago and has worsened. The patient reports fevers and chills but denies chest pain. He has noted increased lower extremity edema during this time as well. He reports that he is unable to sleep because of the shortness of breath, but occasionally passes out from exhaustion. 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 07/17/16. Seen by Dr. Max. The patient continues on Bactrim for osteomyelitis of the left foot and he continues with negative pressure wound therapy to treat the overlying diabetic ulcer. His blood sugars continue to be significantly elevated despite increase his Lantus to 30 units daily. He will establish with his primary care provider early next week. 07/14/16. Seen by Dr. Max. The patient continues on Bactrim for osteomyelitis of the left first metatarsaland has tolerated the wound VAC treating the overlying diabetic ulcer without any issues. His blood sugar is 391 today and his Lantus has recently been increased to 20 units daily. He does not report fevers, feeling unwell, or adverse side effects from the Bactrim. 06/30/16. Seen by Dr. Max. The patient continues on antibiotics for his chronic and infected left plantar foot diabetic ulcer. His MRI confirms osteomyelitis of the head of the first metatarsal. He is tolerating negative pressure wound therapy however remains somewhat noncompliant in terms of removal of the wound VAC if it's not working. He is not routinely checking his blood sugars however but states he is taking is 10 units of Lantus as prescribed. He will establish with a primary care provider in about 2 weeks and he does not report fevers or feeling unwell in general. 07/07/16. Seen by Rashad Dupont PA-C. The patient reports that he completed his MRI examination of his left foot today, just before this appointment. He reports continued drainage from his chronic diabetic foot ulcer of the left foot. Due to a labelling error, the wound cultures taken at his last visit were not processed. 07/03/16. Seen by Dr. Max. The patient disconnected his wound vac 2 days ago however did not remove the dressing as instructed. He's also not checking his blood sugars or taking insulin as prescribed and his blood sugars continue to be frequently elevated over 300 while in the clinic. He does not report pain or increased drainage associated with the chronic left foot diabetic ulcer, nor fevers or feeling unwell, since his last visit. 06/30/16. Seen by Rashad Dupont PA-C. The patient reports no increase in drainage from his chronic left foot diabetic ulcer. He reports better compliance with his insulin and glucose checks and reports that many of his sugars are still above 300. 06/26/16. Seen by Dr. Max. The patient does not report any problems regarding his wound VAC and he continues on doxycycline without reporting adverse side effects for the chronic infection of the left plantar foot diabetic ulcer. He's not routinely checking his blood sugars nor taking his insulin as recently prescribed and he's to establish with his new PCP within one month. 06/23/16. Seen by Rashad Dupont PA-C. The patient reports high blood sugars in the past few days despite being prescribed insulin by Dr. Max. The patient admits to forgetting more than 1/2 of his insulin doses since he was prescribed them. His left plantar foot diabetic ulcer has had stable and continued drainage.. 06/20/16. Seen by Dr. Max. The patient does not report any problems regarding his wound VAC and he continues on antibiotics for the chronic infection of the left plantar foot diabetic ulcer. He started insulin recently and states his blood sugars are between 200 and 300 and he is offloading with a wheelchair as much as possible. 06/18/16. Seen by Dr. Max. The patient does not report problems regarding the negative pressure dressing that was placed 2 days ago to treat the chronic left plantar foot diabetic ulcer. He does not report pain in the foot nor increased drainage and he continues on doxycycline for a chronic wound infection. He's also started taking his long acting insulin as prescribed last week and states his appointment to establish care with a new PCP is in about a month. His blood sugars continue to be elevated over 200 however. 06/16/16. Seen by Rashad Dupont PA-C. The patient reports continued blood sugars above 300 and continued drainage from his left plantar foot diabetic ulcer. 06/09/16. Seen by Rashad Dupont PA-C. The patient reports that he has been leaving his leg dependant when he has been sleeping and is noted to have experienced weight gain since his last appointment. He continues to have very high blood sugars and now has an appointment with primary care to establish care. 06/06/16. Seen by Dr. Max. The patient does not report pain nor significant drainage associated with the chronic left foot diabetic ulcer over the past week. Also, his blood sugars are again over 200 today. 05/29/16. Seen by Dr. Max. The patient does not report pain nor significant drainage associated with the chronic left foot diabetic ulcer over the past week. Although he told the staff that he's discussed his diabetes management with a PCP he tells me has not yet re- established with a PCP as we've recommended so has not been checking blood sugars nor taking diabetes medication. 05/22/16. Seen by Dr. Max. The patient does not report pain nor significant drainage associated with the chronic left foot diabetic ulcer over the past week. 05/19/16. Seen by Rashad Dupont PA-C. The patient reports increased drainage from his chronic left foot diabetic ulcer since his last evaluation. The patient is not wearing his ON[place]AGA boot to offload his ulcer and he reports very high blood sugars in the previous week. The patient continues to be homeless and reports that he was focused on staying warm during the past few days. 05/12/16. Seen by Rashad Dupont PA-C. The patient reports intermittent compliance with his levaquin usage and has not seen [facility] yet for assessment and fitting of his ONONDAGA boot. In addition he reports a new ulcer on his left 5th toe which began a couple days ago. 05/08/16. Seen by Dr. Max. The patient does not report significant drainage nor pain associated with the chronic left plantar foot diabetic ulcer. He continues on antibiotics for an associated wound infection and does not report adverse side effects.He is also not checking his blood sugars routinely and is currently homeless and living in his car. 05/05/16. Seen by Rashad Dupont PA-C. The patient returns to our clinic after spending 12 weeks at [facility]. He reports that his left plantar foot diabetic ulcer never fully healed. He also reports that he has a ONONDAGA boot that he thinks still fits but is not wearing it. Currently he is on Bactrim and Cipro for an ulcer infection and reports missing doses frequently of these medications. 07/17/[address] Max. The patient does not report increased drainage, swelling, or erythema associated with his left plantar foot diabetic ulcer. He continues to offload the foot with a cane and wheelchair and is compliant with his antibiotic and diabetes regimens without reporting adverse side effects. 07/13/14 The patient's recent wound culture grew MRSA sensitive to doxycycline. He does not report increased pain, swelling, or drainage associated with the left plantar foot diabetic ulcer nor does he report fever, chills, or shakes as he has previously. He's compliant with his antibiotic and diabetes medications and states his blood sugars are around 150- 200. He's also met with his new PCP in the past week to establish care. 07/06/14 The patient does not report pain in either foot nor fever or chills. He states he's been compliant with his doxycycline and ciprofloxacin regimen as well as his diabetes regimen. He's not yet established with a PCP but has an appointment in October with a provider in [place]. He also states he does not leave his car very often and so has not had a need to use the wheelchair for offloading. 07/03/14 The patient reports that he is taking his antibiotics regularly now and does not report shakes fever or chills. He would prefer a PCP in [place] to one in [place] if he is not able to see someone in town. 06/29/14 The patient states he's been mostly compliant with his antibiotics that now includes doxycycline plus cipro. He feels the left foot swelling and erythema are beginning to improve. He's also taking a lower dose of metformin along with his glipizide and he does not report 'shakes' as he did at the last visit. 06/26/14 The patient states he experienced some intermittent 'shakes' a couple of day ago and felt it was do to his metformin so he stopped taking it. He does not report fever, sweats, or chills however. He says he's been taking cipro as prescribed but he feels the left foot swelling and erythema are slowly progressing. He also admits to not using his wheelchair or can as recommended and walking a good bit over the weekend. 06/22/14 The patient's new to our clinic but was seen twice on consult as an inpatient over the past month. He's a homeless gentleman with a large left 1st MTPJ plantar ulcer and a smaller right lateral 5th MT ulcer. He's now on a 6 week course of ciprofloxacin based on his MRI that showed possible early osteomyelitis in the left 1st MTPJ sesmoid bone. Deep wound cultures from 06/16/14 grew Group A Streptococcs. He feels the swelling and erythema have improved in the left forefoot as has the drainage. He also states his subjective fevers have resolved. He's a newly diagnosed diabetic and is now on Metformin and Glipizide with an A1c 10.2 on 05/17/14 and he states he's compliant with his medication regimen. His arterial doppler showed only mild atherosclerotic disease in the right SFA. Of note, he's not yet established with a PCP at the [facility] and he states he use a wheelchair for mobilizing except for very short walks when he uses a cane to help offload the left foot. Family History This information was obtained from the patient Cancer - Father Social History This information was obtained from the patient Current every day smoker - 1 pack per day, Alcohol Use - none, Caffeine Use - rare, Children - 2 sons, Homeless, Lives in [facility], Marital Status - single, Occupation - Unemployed, Substance Abuse - Patient denies substance abuse., Tobacco Use Past Medical History This information was obtained from the patient Patient has a medical history of: Diabetes, type II (A1c > 14 05/23/16; 10.2 06/06/14) Osteomyelitis (left 1st MTPJ sesmoid) Homeless Diabetic foot ulcer - 06/06/2014 (left 1st MTPJ; Rivera grade III with osteomyelitis; MRSA positive deep wound culture 07/11/14) Diabetic foot ulcer - 06/22/2014 (right 5th MT; Rivera grade I) Complaints and Symptoms This information was obtained from the patient Patient complains of: General Notes: I have reviewed and concur with the Review of Systems and Past Family Social History documents completed by the clinician, I have reviewed and concur with the Wound Assessment document completed by the clinician Integumentary (Hair/Skin/Nails): Open Sore Musculoskeletal: Assistive Devices Neurological: Abnormal Gait, Loss of Protective Sensation Prior Wound History: Drainage, Erythema, Malodor Psychiatric: Depression Patient denies complaints or symptoms related to: Cardiovascular (Central): Irregular heart beat Cardiovascular (Central/Peripheral): Lower extremity (leg) resting pain, Lower extremity (leg) swelling Cardiovascular (Peripheral) Constitutional Symptoms (General Health): Chills, Fever, Marked Weight Change Ear/Nose/Mouth/Throat: Hearing Loss / Aid Gastrointestinal (GI): Nausea / Vomiting, Stomach/abdominal pain Hematologic/Lymphatic: Bleeding / Clotting Disorders, Bleeding Tendency Musculoskeletal: Joint Swelling, Muscle Weakness Prior Wound History: Bleeding, Pain Psychiatric: Memory Loss Respiratory: Oxygen Use, Shortness of Breath OBJECTIVE Constitutional Vital signs reviewed. Elevated blood sugar noted. Well developed, lucid, and in no acute distress. . Height/Length: 72 in (182.88 cm), Weight: 261.2 lbs (118.73 kgs), BMI: 35.4, Temperature: 99.7 ?F (37.61 ?C), Pulse: 93 bpm, Respiratory Rate: 18 breaths/min , Blood Pressure: 149/85 mmHg, Capillary Blood Glucose: 290 mg/dl, Pulse Oximetry: 93 %. Vital Signs Notes: Glucose per patient Eyes: Conjunctiva clear and without icterus. Pupils are equal and round; EOM's intact. Ears, Nose, Mouth, and Throat: Grossly intact. Respiratory: No respiratory distress. Even respirations and without use of accessory muscles.. Integumentary (Hair, Skin) Refer to appropriate clinician wound documentation for this visit; ulcer extends to subcutaneous fat layer. . Wound #5 Left, Plantar Foot is a chronic Rivera Grade 2 Diabetic Ulcer and has received a status of Not Healed. Subsequent wound encounter measurements are 0.2cm length x 0.2cm width x 0.2cm depth, with an area of 0.04 sq cm and a volume of 0.008 cubic cm. No tunneling has been noted. No sinus tract has been noted. No undermining has been noted. There is a scant amount of serous drainage noted which has no odor. The patient reports no wound pain due to the wound being insensate. The wound margin is callus. Wound bed has No epithelialization, Yes eschar, Yes slough, Yes bright red, pink, firm granulation. The periwound skin texture is normal. The periwound skin color is normal. The periwound skin exhibited: Dry/Scaly. The periwound skin did not exhibit: Moist, Maceration. The temperature of the periwound skin is WNL. Periwound skin does not exhibit signs or symptoms of infection. Local Pulse is Palpable. Psychiatric: Judgement and insight: Normal affect with normal thought pattern. Alert and oriented 3/3. Memory grossly intact.. Normal affect. Mood appropriate.. ASSESSMENT Active Problems ICD-10 (Encounter Diagnosis) L97.522 - Non-pressure chronic ulcer of other part of left foot with fat layer exposed (Encounter Diagnosis) E11.621 - Type 2 diabetes mellitus with foot ulcer (Encounter Diagnosis) E11.65 - Type 2 diabetes mellitus with hyperglycemia PROCEDURES Wound #5 Wound #5 (Diabetic Ulcer) is located on the left, plantar foot. A selective debridement with a total area debrided of 0.04 sq cm was performed by Henrry Dupont PA. to remove devitalized tissue: callus and exudate. The following instrument(s) were used: curette. No anesthetic was required due to loss of sensation. A time out was conducted prior to the start of the procedure. No bleeding occurred. The procedure was tolerated well with a pain level of 0 throughout and a pain level of 0 following the procedure. Post Debridement Measurements: 0.2cm length x 0.2cm width x 0.2cm depth; with an area of 0.04 sq cm and a volume of 0.008 cubic cm; PLAN Wound Orders: Wound #5 Left, Plantar Foot Topical Treatments Antibiotic/Antimicrobial Ointment/Cream. - Gentamicin ointment Dressings Primary dressing: - Covrsite Cover and secure with: - Tape Change Dressing: - Every other day Additional Orders: Cleanser Cleanse Wound: - Normal Saline and gauze. May Shower. - Please avoid getting tap water in wound or on dressing. Cover while in shower. Follow-Up Appointments Return Appointment: - - One week Other information: If you develop fever, chills, increased pain, drainage, redness or swelling please call our office. If after hours, respond to the ER. Should you experience any significant changes in your wound(s) or have any questions regarding your home care instructions please contact the wound center @ [phone]. If after hours, contact your primary care physician or go to the hospital emergency room. Scribing Attestation I attest, as the nurse, that I scribed these orders for the physician. I've reviewed the clinician's documentation and agree with the evaluation and plan as written. In addition the patient's ulcer demonstrates evidence of non-viable devitalized tissue which benefits from sharp debridement. Separate from the need for debridement today to speed healing, the patient's diabetes was assessed, as good blood sugar control reduces the risk of infection and improves soft tissue healing. The patient was enouraged to continue to comply with a diabetic diet, medications and continue to regularly follow up with primary care to maintain good control of this issue. Electronic Signature(s) Signed By: Date: Rashad Dupont 09/07/2017 22:08:02 Entered By: Rashad Dupont on 09/07/2017 13:33:15
== END ==
PROVIDERS: Visit Provider Physician Assistant
DX: L97.522 Non-pressure chronic ulcer of other part of left foot with fat layer exposed (principal); E11.621 Type 2 diabetes mellitus with foot ulcer; E11.65 Type 2 diabetes mellitus with hyperglycemia
CPT/HCPCS: 97597

== ENCOUNTER → 2017-10-27 10:04 | Outpatient (CLI) | payer OTHER, MEDICAID, SELFPAY ==
--- NOTE | 2017-10-27 | OV.WND_ITS ---
Progress Note Details Patient Name: David Givens Patient Number: [id number] PatientPatientDate: 10/27/2017 Clinician: Adina Martinez Clinician Cosigner: Alysa Lau Physician / Sternman: Jorge Luis Max SUBJECTIVE Chief Complaint This information was obtained from the patient Diabetic ulcer on left foot. Allergies Vicodin (Reaction: itching), codeine (Severity: Mild, Reaction: stomach upset) HPI This information was obtained from the patient 10/27/17. Seen by Dr. Max. The patient returns today with recurrence of the left plantar foot 1st MTPJ diabetic foot ulcer that was very chronic but eventually healed in May of this year. He does not report pain or drainage associated with this. He was seen in August also but did not follow up. His blood sugars continue to be elevated over 300 and he states his Lantus is being increased by his PCP. 09/04/17. Seen by Rashad Dupont PA-C. The patient reports minimal drainage from his left foot ulcer. His blood sugars continue to be >150 on most days. 08/28/17. Seen by Dr. Max. The patient only picked up his levofloxacin 3 days ago that was prescribed for the recent E. coli culture taken from the left plantar foot diabetic ulcer. He does not report adverse side effects nor significant drainage from the ulcer. Of note , his blood sugar today is again over 300 and he states he has rhubarb pie last night. He has an appointment with is PCP next week to discuss adjusting his dose of Lantus. 08/21/17. Seen by Dr. Max. The patient's wound culture taken from the recurrent left 1st MTPJ diabetic ulcer grew E. coli and Streptococcus and he's applying topical gentamicin as recommended. The nurse reports maceration and drainage on his dressing today and his blood sugar is again over 300. 08/17/17. Seen by Dr. Max. The patient returns today with recurrence of the left plantar foot 1st MTPJ diabetic foot ulcer that was very chronic but eventually healed in May of this year. He states a callus has been accumulating and it started to drain last week. He does not report pain in the foot nor swelling but states the 1st toe appeared red yesterday however this has now resolved. He uses a wheelchair for offloading and his blood sugars continue to be over 300. He has a history of poor compliance with his diabetes management and resides in assisted living. 06/02/17. Seen by Dr. Max. The patient does not report drainage or pain associated with chronic left foot diabetic ulcer since last visit. 05/26/17. Seen by Rashad Dupont PA-C. The patient does not report increased drainage from his left foot diabetic ulcer. 05/12/17. Seen by Dr. Max. The patient does not report pain nor increased drainage associated with the chronic left plantar foot diabetic ulcer. He also continues on doxycycline for chronic osteomyelitis of the left MTPJ. 05/05/17. Seen by Rashad Dupont PA-C. The patient reports that he will be moving into [facility] this Thursday. He continues to have high blood sugars and is reportedly compliant with his doxycycline (though he thought he was taking levaquin) and he does not report increased drainage. 04/28/17. Seen by Rashad Dupont PA-C. The patient reports having to walk more than normal because his truck ran out of gas this week. He has not noted any drainage from his left foot diabetic ulcer. He continues on Doxycycline for chronic osteomyelitis. His blood sugars have been >200 this week. Of note, he is wearing regular shoes and does not own shoes that are custom fitted to his foot deformities, which have been present for several years. 04/21/17. Seen by Rashad Dupont PA-C. The patient reports minimal drainage from his left 1st toe diabetic ulcer. Today he reports that he believes he was taking Levaquin recently and will be out of antibiotics today. His most recent X-ray of the left foot shows worsening chronic osteomyelitis. 04/18/17. Seen by Rashad Dupont PA-C. The patient reports decreased drainage from his chronic left 1st toe ulcer. He is nearly out of his Augmentin, which he was taking for his ulcer infection. 04/13/17. Seen Dr. Max. The patient returns to our clinic, after being seen on Thursday, due to increased swelling and erythema of the left first toe over the weekend. His first MTPJ diabetic ulcer has improved considerably over the past few weeks and he has been taking Augmentin for an associated group B strep positive wound culture taken last week. He does not report fevers or pain in the foot and his blood sugars continue to be significantly elevated. 04/10/17. Seen by Rashad Dupont PA-C. The patient reports continued redness and warmth despite taking Augmentin for his strep positive ulcer infection of the left 1st toe. He reports missing some doses of the antibiotic however. His blood sugars have been high since he ran out of insulin a few days ago. He is currently still homeless with housing pending and is able to stay in a local motel on most nights. 04/07/17. Seen by Dr. Max. The patient does not report pain nor increased drainage associated with the chronic left plantar foot diabetic ulcer. He's now on Augmentin again for cellulitis of the left 1st toe diagnosed at his last visit and his wound culture grew Group B Strep. He feels the swelling decreased and he does not report fevers, pain, or adverse side effects of the antibiotics. 04/03/17. Seen by Dr. Max. The patient does not report pain nor decreased drainage associated with the chronic left plantar foot diabetic ulcer however he does feel that his left first toe is red and swollen today. He does not report fevers nor feeling on well and has been off antibiotics were treating chronic osteomyelitis of the first MTPJ for at least a week. His blood sugars continue to be persistently elevated and despite establishing with primary care is provider months ago he has not been able to improve upon his diabetes management. 03/27/17. Seen by Dr. Max. The patient does not report increased drainage or pain associated with the chronic left plantar foot diabetic ulcer since his last visit. His wound culture from the last visit grew group B streptococcus and he's not currently on antibiotics. 03/24/17. Seen Dr. Max. The patient is here for a change of his wound VAC however the staff report increased maceration around the left plantar foot diabetic ulcer. He has now been off of antibiotics for about a week and has been treated for chronic osteomyelitis for the past few months. 03/20/17. Seen by Dr. Max. The patient states his wound VAC stopped working earlier in the week and he has not picked up his prescription of Augmentin that was to treat chronic osteomyelitis associated with the left plantar foot diabetic ulcer. Of note, his blood sugar today is again very elevated at 386. 03/11/17. Seen by Dr. Max. The patient states his wound VAC became dysfunctional 2 days ago. He continues on Augmentin for chronic osteomyelitis associated to chronic left plantar foot diabetic ulcer. He does not report pain nor significant drainage from the ulcer nor side effects from antibiotics. 03/06/17. Seen by Dr. Max. The patient does not report increased drainage or pain associated with the chronic left plantar foot diabetic ulcer since his last visit. He states he's continuing on Augmentin for underlying chronic osteomyelitis of the 1st MTPJ as recommended but will run out of antibiotics early next week. 02/27/17. Seen by Dr. Max. The patient does not report pain or increased drainage associated with chronic left plantar foot diabetic ulcer since last visit. His wound VAC was changed to a SID and he tolerated this well without any issues. He continues on Augmentin for underlying chronic osteomyelitis and his blood sugar is again elevated over 300 today despite establishing with primary care and being started on his insulin and metformin. 02/24/17. Seen by Dr. Max. The patient does not report increased pain nor drainage associated with the chronic left plantar foot diabetic ulcer. His blood sugars are again near 400 however he has seen his primary care provider and has been started on insulin and metformin which he will picker tender helper from the pharmacy today. He continues on antibiotics also for underlying chronic osteomyelitis of the left foot. 02/20/17. Seen by Dr. Max. The patient does not report increased pain nor drainage associated with the chronic left plantar foot diabetic ulcer. Of note he is homeless and his mobility has been limited due to the winter weather recently. He is a bit noncommittal regarding adherence to his antibiotic regimen that's treating underlying chronic osteomyelitis. His blood sugars again are over 300 and he has a history of noncompliance regarding his diabetes management. 02/17/17. Seen by Rashad Dupont PA-C. The patient reports no increase in drainage from his diabetic foot ulcer of the left foot. He reports that his blood sugar is high today because he drank several slurpees from [employer] last night. 02/13/17. Seen by Dr. Max. The patient states that there has been increased drainage associated with the chronic left plantar foot diabetic ulcer over the past few days. The staff also report a significant malodor today. He admits to missing a few days worth of antibiotics as he's been feeling unwell over the past week with an upper respiratory tract infection.He is also scheduled appointment to establish with his primary care provider and of note his blood sugar is again significantly elevated at 293 today. 02/06/17. Seen by Dr. Max. The patient does not report increased drainage nor pain associated with the chronic left plantar foot diabetic ulcer since his last visit. He continues on Augmentin for chronic osteomyelitis of the foot. He also has an appointment with [facility] at the end of the month to address his homeless situation and will establish with his primary care provider in the first week in February to discuss management of his poorly controlled diabetes and other medical issues. 02/03/17. Seen by Rashad Dupont PA-C. The patient reports stable drainage from his left foot diabetic ulcer with underlying chronic osteomyelitis. He is about to finish his current prescription for osteomyelitis and notes no pain or other new symptoms related to this condition. His blood sugars continue to be >200 and he has not yet made an appointment with his PCP to address this. He says he is running out of insulin and has no refills. He continue to be homeless. 01/30/17. Seen by Dr. Max. The patient does not report increased drainage or pain associated with the chronic left plantar foot diabetic ulcer since his last visit. He continues on antibiotics for underlying chronic osteomyelitis and is her primary side effects. He also has an appointment within the next 3 weeks with his establishing primary care provider and we'll be addressing his diabetes management at that time. He also continues to reside in a motel while he is awaiting a decision on possible long-term placement in a attempt to resolve his homeless situation 01/23/17. Seen by Dr. Max. The patient is a report increased drainage from pain associated with the chronic left plantar foot diabetic ulcers since last visit. He is supposed to be continued on Augmentin for associated underlying chronic osteomyelitis however he admits that he has missed a few doses recently and he is establishing with new primary care provider. He also has a bilingual social worker with him today assisting with his housing and healthcare needs. Of note, the patient admits to having a degree of cognitive dysfunction that frequently affects his ability to manage his diabetes medications, antibiotics, and maintain a stable housing situation. 01/20/17. Seen by Rashad Dupont PA-C. The patient reports continued purulent drainage from his left foot diabetic ulcer. He continues to take antibiotics for his chronic osteomyelitis irregularly and reports that his blood sugars continue to be above 200 most days. He remains homeless though states he may have a lead on some housing assistance. Due to his homelessness he walks on his foot more than is recommended. 01/16/17. Seen by Dr. Max. The patient does not report increased drainage associated with the chronic left plantar foot diabetic ulcer. The staff report however that he has missed a few doses of his antibiotics since treating underlying chronic osteomyelitis. Of note, he is homeless and has been sleeping in his car which is relevant in that the temperatures approached freezing overnight and he's not wearing socks other than the non- skid socks we've provided at the clinic. 01/09/17. Seen by Rashad Dupont PA-C. The patient reports increased drainage in his SNAP canister and he is nearly completed with his course of Cipro. His blood sugars continue to be above >150 when he takes them. 01/06/17. Seen by Rashad Dupont PA-C. The patient reports intermittently taking his antibiotics and has been unable to completely offload his ulcer due to being homeless. He reports that most blood sugars in the past few days have been over 200. 01/02/17. Seen by Dr. Max. The patient does not report increased pain or drainage associated with the chronic left plantar foot diabetic ulcer however the wound VAC leaked earlier in the week and was removed. The patient is noncommittal regarding the use of his antibiotics treating chronic osteomyelitis of the left first MTPJ also. He's not report fevers or feeling unwell is also noncommittal regarding 100% offloading that's been recommended. 12/30/16. Seen by Rashad Dupont PA-C. The patient reports intermittent compliance with his antibiotics. He admits he likes to take two tablets for the first dose and also admits to accidentally skipping doses. His foot ulcer has had increased drainage and increased odor. 12/26/16. Seen by Dr. Max. The patient is now taking ciprofloxacin to treat the recent Pseudomonas positive wound culture taken from the chronic left plantar foot diabetic ulcer. He does not report adverse side effects nor increased pain, swelling, or drainage associated with the ulcer. His blood sugars continue to be over 300 and he has not yet followed up on our recommendation to discuss this with his primary care provider to adjust his insulin. 12/23/16. Seen by Rashad Dupont PA-C. The patient reports he has still not been able to obtain his Levaquin to treat his left foot diabetic ulcer infection. Our office has continued to try and facilitate the prior authorization of this medication without success. The patient does not report fever or chills but does report that drainage has soaked through his sock. 12/19/16. Seen by Dr. Max. The patient does not report increased pain or drainage associated with the chronic left plantar foot diabetic ulcers since his last visit. He is started on levofloxacin for the new pseudomonas positive wound culture has not been able to picker tender helper the antibiotic due to insurance prior authorization issues. 12/16/16. Seen by Dr. Max. The patient does not report increased pain or drainage associated with the chronic left plantar foot diabetic ulcer since last visit. His wound VAC became dysfunctional over the weekend and he presented to the clinic yesterday at which time it was removed. He states he continues to take his antibiotics for chronic osteomyelitis of the left first MTPJ however we are unable to confirm how many tablets he has left and is been rather noncompliant with this in the past. His blood sugars also continue to be significantly elevated. 12/12/16. Seen by Dr. Max. The patient does not report pain nor increased drainage associated with the chronic left plantar foot diabetic ulcer and he continues on antibiotics to treat associated chronic osteomyelitis of the left 1st MTPJ. 12/09/16. Seen by Dr. Max. The patient reports drainage in his shoe and sock today associated with the chronic left plantar foot diabetic ulcer. He states that the wound VAC however appear to be sealed and operating properly over the past few days. He is on amoxicillin for chronic osteomyelitis of the left first MTPJ and complains of some GI upset. 12/05/16. Seen by Dr. Max. The patient is now on amoxicillin for the recent Streptococcus positive wound culture taken as last visit. This is also treating chronic osteomyelitis of the left foot. He does not report adverse side effects nor pain or increased drainage associated with chronic left plantar foot diabetic ulcer. He is also tolerating negative pressure wound therapy without difficulty. 12/02/16. Seen by Dr. Max. The patient presented to clinic yesterday for a nurse visit following a wound vac dysfunction the previous day. He'd left the foam dressing in place however for the previous 24 hours despite being advised to remove it within 2 hours of it not working. He does not report pain at the chronic left diabetic foot ulcer site and he's been off of his antibiotics for 1-2 days (he's unsure of when he stopped taking them) and states he has a few each of the levofloxacin and Augmentin tablets that have been prescribed recently to treat underlying chronic osteomyelitis of the left foot. 11/28/16. Seen by Dr. Max. The patient does not report pain nor increased drainage associated with the chronic left plantar foot diabetic ulcer. He should've completed his course of levofloxacin by now but states that he has a couple of tablets left over. In relation to this he has also not taken his prior antibiotic prescriptions as scheduled. 11/25/16. Seen by Dr. Max. The patient does not report pain nor increased drainage associated with the chronic left plantar foot diabetic ulcer. He has nearly completed his course of levofloxacin that is treating underlying chronic osteomyelitis of the foot and he does not report adverse side effects. Also, his blood sugars are again over 300 and he states he does have an appointment next week week with his primary care provider to address his diabetes. 11/21/16. Seen by Dr. Max. The patient does not report pain in the left foot nor increased drainage associated with chronic plantar diabetic foot ulcer since his last visit. He continues on levofloxacin for chronic osteomyelitis of the left foot and does not report adverse side effects nor fevers or feeling unwell today. 11/18/16. Seen by Dr. Max. The patient does not report pain in the left foot nor increased drainage associated with chronic plantar diabetic foot ulcer since his last visit. He found the levofloxacin that he lost and restarted this over the weekend. He does not report adverse side effects nor fevers or feeling unwell today. 11/14/16. Seen by Dr. Max. The patient's left foot wound VAC fell off yesterday. He also states that he lost his levofloxacin that's treating chronic osteomyelitis of the left foot but he has started taking the Augmentin that he had leftover from his last prescription. He does not report increased drainage associated with a chronic left plantar foot diabetic ulcer however does report some pain at the site. 11/11/16. Seen by Dr. Max. The patient does not report increased drainage associated with a chronic left plantar foot diabetic ulcer and he continues on levofloxacin for underlying chronic osteomyelitis of the left first MTPJ. He does not reporting adverse side effects of antibiotics, fevers, or feeling unwell. His blood sugars continue to be significantly elevated and he is noncommittal regarding checking them and taking his insulin as prescribed. He also has not seen his primary care provider in the last few months as we recommended. 11/07/16. Seen by Dr. Max. The patient is now on levofloxacin and reports some nausea since starting this. He does not report significant drainage or pain associated with chronic left plantar foot diabetic ulcer however since his last visit. 11/04/16. Seen by Dr. Max. The patient states that he completed his Augmentin 2 days ago and he does not report increased drainage or pain associated with the chronic left plantar foot diabetic ulcer nor the underlying chronic osteomyelitis. His recent wound culture grew Klebsiella which is sensitive to Augmentin and he does not report fevers, feeling unwell, or adverse side effects to the antibiotics. 10/31/16. Seen by Dr. Max. The patient's wound VAC began leaking soon after his last visit and was removed at that time. He continues on Augmentin for chronic osteomyelitis associated with the chronic left plantar foot diabetic ulcer and feels that the pain has resolved over the past week. 10/28/16. Seen by Dr. Max. The patient states that the wound VAC started leaking yesterday he presented to the clinic and it was removed with the left plantar foot ulcer filled with alginate. He states he continues to take his antibiotics for chronic osteomyelitis of the foot and does not report adverse side effects. His blood sugars continue to be consistently over 200 however have improved somewhat as they were typically over 300 previously. He does not report fevers, pain in the foot, nor feeling unwell in general. 10/24/16. Seen by Dr. Max. The patient states he has restarted taking his antibiotics as prescribed and he does not report significant drainage associated with chronic left foot diabetic ulcer since his last visit. He also reports the pain has improved and he is not reporting fevers or feeling unwell. He is taking antibiotics for chronic osteomyelitis associated with the ulcer. 10/21/16. Seen by Dr. Max. The patient is not very engaging today and he is noncommittal regarding whether he is taking his antibiotics as prescribed. His recent wound culture grew Klebsiella sensitive to Augmentin however he states that his left foot pain associated with the diabetic ulcer and chronic osteomyelitis has increased over the past week. He does not report fevers however nor feeling unwell and his negative pressure wound therapy was held at last visit due to deterioration of the ulcer and concern for change of infection. 10/17/16. Seen by Dr. Max. The patient reports some pain associated with the chronic left plantar foot diabetic ulcer since his last visit staff report increased maceration in the nunu-ulcer area. He does not report fevers however states that he's not been taking his antibiotic entirely as prescribed. His blood sugars are over 300 again today he states he has been offloading the foot as recommended. 10/14/16. Seen by Dr. Max. The patient reports being more active on his feet the past few days despite wearing a snap negative pressure wound dressing. Does not report increased drainage associated with the left plantar foot diabetic ulcer and continues on Augmentin for chronic osteomyelitis of the foot. His blood sugars are improving somewhat into the 200s and he states he is checking these and taking insulin as recommended. He has not yet followed up with his primary care provider as recommended however in terms of his diabetes management. 10/10/16. Seen by Dr. Max. The patient has restarted his Augmentin as recommended that's treating chronic osteomyelitis of the left foot. He does not report increased drainage associated with the left plantar foot diabetic ulcer since his last visit. His blood sugars continue to be significantly elevated and he has not yet scheduled and appointment with his primary care provider to discuss this. 10/07/16. Seen by Dr. Max. The patient does not report increased drainage associated with the chronic left foot diabetic ulcer. He continues on negative pressure wound therapy and states he forgot to picker tender helper his antibiotics that are treating chronic osteomyelitis in the foot. His blood sugars continue to be significantly elevated and is noncommittal regarding checking his blood sugars and taking his insulin routinely. 10/03/16. Seen by Dr. Max. The patient states he is nearly out of antibiotics that have been treating chronic osteomyelitis the left foot. He does not report any problems regarding the overlying diabetic foot ulcer nor negative pressure wound therapy. Also, his blood sugars 381 today and has been significantly elevated for months. This is despite his recent statement that he's been checking blood sugars and taking his insulin routinely. 09/30/16. Seen by Dr. Max. The patient does not report significant drainage or other acute issues associated with the chronic left plantar foot diabetic ulcers since his last visit. He continues on antibiotics for underlying osteomyelitis of the foot and does not report fevers or other side effects of antibiotics. He states his blood sugars are improving and are in the 200s this morning and that he's been checking them and taking his insulin as recommended. 09/26/16. Seen by Dr. Max. The patient does not report pain nor increased drainage associated with chronic left plantar foot diabetic ulcer and underlying chronic osteomyelitis since his last visit. Of note, he admits to not necessarily taking all of his antibiotics as recommended and his recent culture grew Klebsiella for which he is to be taken Augmentin. His blood sugars also continue to be elevated over 300 despite the fact he states he's been checking them taking his insulin. 09/23/16. Seen by Dr. Max. The patient does not report increased drainage or other acute changes regarding his chronic left plantar foot diabetic ulcer. He is checking his blood sugars and taking insulin however states that they still are often times over 300. He continues on Augmentin for underlying osteomyelitis of the foot and does not report adverse side effects. 09/21/16. Seen by Rashad Dupont PA-C. The patient reports that he continues to have high blood sugars despite taking 40 units twice daily of insulin. He reports occasionally missing a dose but tries to comply with his orders. He believes he has a follow up appointment soon with his PCP regarding diabetes but is unsure of the date. 09/15/16. Seen by Rashad Dupont PA-C. The patient reports continued difficulty sleeping due to difficulty breathing while supine, though he feels this is somewhat improved as he is reducing his fluid intake. He reports blood sugars consistently above 150 and believes he has an appointment with his PCP to review his diabetic regimen soon. He continues on augmentin for his osteomyelitis and his drainage from his left foot ulcer has been stable. 09/09/16. Seen by Dr. Max. The patient is not very engaging today however does not report any new problems regarding the chronic left plantar foot diabetic ulcer nor the wound VAC. He states he continues to take Augmentin as recommended for associated chronic osteomyelitis of the left first MTPJ and he is offloading as much as possible. He states he is also checking his blood sugars and taking his insulin as recommended however he has been quite noncompliant with this in the past. 09/05/16. Seen by Dr. Max. The patient does not report pain or increased drainage associated with the chronic left plantar foot diabetic ulcer since his last visit. He states he continues on Augmentin for osteomyelitis of the foot and does not report adverse side effects although he's not had a recent Rx written. His recent wound culture grew Klebsiella and group B Strep. 09/02/16. Seen by Rashad Dupont PA-C. The patient reports continued thirst and continued intake of a large amount of water. He reports that it is very difficult for him to resist drinking large amounts of fluids. His blood sugars continue to be over 200 and his chronic left foot diabetic ulcer has had stable drainage. He continues on oral antibiotics for his chronic osteomyelitis of the left foot. 08/29/16. Seen by Dr. Max. The patient does not report pain or increased drainage associated with the chronic left plantar foot diabetic ulcer since his last visit. He continues on Augmentin for osteomyelitis of the foot and does not report adverse side effects. His shortness of breath has improved as has his leg swelling and his recent ECHO showed only some diastolic dysfunction. He does report being very thirsty and drinking over a gallon of water and flavored drinks daily. His blood sugars have also been very poorly controlled over the past few months. 08/22/16. Seen by Dr. Max. The patient does not report pain or increased drainage associated with the chronic left plantar foot diabetic ulcer since his last visit although he's not very engaging today. He continues on Augmentin for osteomyelitis of the foot and does not report adverse side effects. Of note, his shortness of breath has improved as has his leg swelling and his ECHO showed only some diastolic dysfunction. He's not yet discussed this with is PCP however. 08/14/16. Seen by Dr. Max. The patient does not report pain or increased drainage associated with the chronic left plantar foot diabetic ulcer since his last visit. He continues on antibiotics for osteomyelitis of the foot and does not report adverse side effects. 08/19/16. Seen by Rashad Dupont PA-C. The patient reports continued high blood sugars, with all readings so far above 200. He reports stable drainage from her diabetic foot ulcer with underlying osteomyelitis and he has an upcoming echocardiogram to assess his orthopnea, which he reports is somewhat improved recently. He continues on augmentin for his underlying osteomyelitis. 08/15/16. Seen by Dr. Max. The patient does not report pain or significant drainage associated with chronic left plantar foot diabetic ulcer since his last visit. He is tolerating negative pressure wound therapy without difficulty and continues on antibiotics for acute osteomyelitis of the left first metatarsal. His blood sugars are over 400 today and he's non- committal regarding adherence to his insulin regimen. 08/12/16. Seen by Dr. Max. The patient reports that the SNAP wound VAC has not been working for the past day or so however he did not take the dressing off as recommended. The staff reports significant maceration associated with the chronic left plantar foot diabetic ulcer and he continues on antibiotics for underlying osteomyelitis of the first metatarsal. He is not checking blood sugars routinely and they continued to be significantly elevated over 200. He does not report fevers, pain in the foot, or feeling unwell. 08/07/16. Seen by Dr. Max. The patient does not report pain or significant drainage associated with chronic left plantar foot diabetic ulcer since his last visit. He is tolerating negative pressure wound therapy without difficulty and continues on antibiotics for acute osteomyelitis of the left first metatarsal. 08/04/16. Seen by Rashad Dupont PA-C. The patient reports continued difficulty sleeping due to shortness of breath when supine. He reports continued drainage from his Rivera grade III diabetic ulcer of the left foot. He continues to have very high blood sugars, with most readings above 200. 07/31/16. The patient does not report pain or significant drainage associated with chronic left plantar foot diabetic ulcer since his last visit. He is tolerating negative pressure wound therapy without difficulty and continues on antibiotics for acute osteomyelitis of the left first metatarsal. 07/28/16. Seen by Rashad Dupont PA-C. The patient reports continued drainage from his left foot Rivera grade III diabetic ulcer with underlying osteomyelitis, confirmed again recently on MRI. His blood sugars continue to be mostly above 250. He continues on antibiotics (augmentin until 08/08/16) to treat the chronic infection of this ulcer and to treat his osteomyelitis. 07/25/16. Seen by Dr. Max. The patient does not report pain or significant drainage associated with chronic left plantar foot diabetic ulcer since his last visit. His wound culture from the last visit grew Enterococcus and Strep group B. He is tolerating negative pressure wound therapy without difficulty and continues on antibiotics for acute osteomyelitis of the left first metatarsal. He does not check his blood sugars regularly and is noncommittal regarding taking his insulin as prescribed. He is also not wearing his offloading shoe as recommended. He does not report adverse side effects from the antibiotics, fevers, or feeling unwell in general. 07/23/16. Seen by Dr. Max. The patient does not report increased drainage or pain associated with the chronic left plantar foot diabetic ulcer and he's tolerated the wound VAC over the past few days without any difficulty. He continues on antibiotics for acute osteomyelitis of the left first metatarsal and does not report adverse side effects. He was seen by his primary care provider to establish care and specifically to address his diabetes and some recent shortness of breath which she states is now resolved. He states today that his medications have not been adjusted and he will see his primary care provider in 2 weeks again. His blood sugars continue to be elevated over 300 consistently. 07/21/16. Seen by Rashad Dupont PA-C. The patient reports severe shortness of breath with exertion and when supine, which begain 3 days ago and has worsened. The patient reports fevers and chills but denies chest pain. He has noted increased lower extremity edema during this time as well. He reports that he is unable to sleep because of the shortness of breath, but occasionally passes out from exhaustion. 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 07/17/16. Seen by Dr. Max. The patient continues on Bactrim for osteomyelitis of the left foot and he continues with negative pressure wound therapy to treat the overlying diabetic ulcer. His blood sugars continue to be significantly elevated despite increase his Lantus to 30 units daily. He will establish with his primary care provider early next week. 07/14/16. Seen by Dr. Max. The patient continues on Bactrim for osteomyelitis of the left first metatarsaland has tolerated the wound VAC treating the overlying diabetic ulcer without any issues. His blood sugar is 391 today and his Lantus has recently been increased to 20 units daily. He does not report fevers, feeling unwell, or adverse side effects from the Bactrim. 06/30/16. Seen by Dr. Max. The patient continues on antibiotics for his chronic and infected left plantar foot diabetic ulcer. His MRI confirms osteomyelitis of the head of the first metatarsal. He is tolerating negative pressure wound therapy however remains somewhat noncompliant in terms of removal of the wound VAC if it's not working. He is not routinely checking his blood sugars however but states he is taking is 10 units of Lantus as prescribed. He will establish with a primary care provider in about 2 weeks and he does not report fevers or feeling unwell in general. 07/07/16. Seen by Rashad Dupont PA-C. The patient reports that he completed his MRI examination of his left foot today, just before this appointment. He reports continued drainage from his chronic diabetic foot ulcer of the left foot. Due to a labelling error, the wound cultures taken at his last visit were not processed. 07/03/16. Seen by Dr. Max. The patient disconnected his wound vac 2 days ago however did not remove the dressing as instructed. He's also not checking his blood sugars or taking insulin as prescribed and his blood sugars continue to be frequently elevated over 300 while in the clinic. He does not report pain or increased drainage associated with the chronic left foot diabetic ulcer, nor fevers or feeling unwell, since his last visit. 06/30/16. Seen by Rashad Dupont PA-C. The patient reports no increase in drainage from his chronic left foot diabetic ulcer. He reports better compliance with his insulin and glucose checks and reports that many of his sugars are still above 300. 06/26/16. Seen by Dr. Max. The patient does not report any problems regarding his wound VAC and he continues on doxycycline without reporting adverse side effects for the chronic infection of the left plantar foot diabetic ulcer. He's not routinely checking his blood sugars nor taking his insulin as recently prescribed and he's to establish with his new PCP within one month. 06/23/16. Seen by Rashad Dupont PA-C. The patient reports high blood sugars in the past few days despite being prescribed insulin by Dr. Max. The patient admits to forgetting more than 1/2 of his insulin doses since he was prescribed them. His left plantar foot diabetic ulcer has had stable and continued drainage.. 06/20/16. Seen by Dr. Max. The patient does not report any problems regarding his wound VAC and he continues on antibiotics for the chronic infection of the left plantar foot diabetic ulcer. He started insulin recently and states his blood sugars are between 200 and 300 and he is offloading with a wheelchair as much as possible. 06/18/16. Seen by Dr. Max. The patient does not report problems regarding the negative pressure dressing that was placed 2 days ago to treat the chronic left plantar foot diabetic ulcer. He does not report pain in the foot nor increased drainage and he continues on doxycycline for a chronic wound infection. He's also started taking his long acting insulin as prescribed last week and states his appointment to establish care with a new PCP is in about a month. His blood sugars continue to be elevated over 200 however. 06/16/16. Seen by Rashad Dupont PA-C. The patient reports continued blood sugars above 300 and continued drainage from his left plantar foot diabetic ulcer. 06/09/16. Seen by Rashad Dupont PA-C. The patient reports that he has been leaving his leg dependant when he has been sleeping and is noted to have experienced weight gain since his last appointment. He continues to have very high blood sugars and now has an appointment with primary care to establish care. 06/06/16. Seen by Dr. Max. The patient does not report pain nor significant drainage associated with the chronic left foot diabetic ulcer over the past week. Also, his blood sugars are again over 200 today. 05/29/16. Seen by Dr. Max. The patient does not report pain nor significant drainage associated with the chronic left foot diabetic ulcer over the past week. Although he told the staff that he's discussed his diabetes management with a PCP he tells me has not yet re- established with a PCP as we've recommended so has not been checking blood sugars nor taking diabetes medication. 05/22/16. Seen by Dr. Max. The patient does not report pain nor significant drainage associated with the chronic left foot diabetic ulcer over the past week. 05/19/16. Seen by Rashad Dupont PA-C. The patient reports increased drainage from his chronic left foot diabetic ulcer since his last evaluation. The patient is not wearing his [place] boot to offload his ulcer and he reports very high blood sugars in the previous week. The patient continues to be homeless and reports that he was focused on staying warm during the past few days. 05/12/16. Seen by Rashad Dupont PA-C. The patient reports intermittent compliance with his levaquin usage and has not seen [facility] yet for assessment and fitting of his [place] boot. In addition he reports a new ulcer on his left 5th toe which began a couple days ago. 05/08/16. Seen by Dr. Max. The patient does not report significant drainage nor pain associated with the chronic left plantar foot diabetic ulcer. He continues on antibiotics for an associated wound infection and does not report adverse side effects.He is also not checking his blood sugars routinely and is currently homeless and living in his car. 05/05/16. Seen by Rashad Dupont PA-C. The patient returns to our clinic after spending 12 weeks at [facility]. He reports that his left plantar foot diabetic ulcer never fully healed. He also reports that he has a [place] boot that he thinks still fits but is not wearing it. Currently he is on Bactrim and Cipro for an ulcer infection and reports missing doses frequently of these medications. 07/17/[address] Max. The patient does not report increased drainage, swelling, or erythema associated with his left plantar foot diabetic ulcer. He continues to offload the foot with a cane and wheelchair and is compliant with his antibiotic and diabetes regimens without reporting adverse side effects. 07/13/14 The patient's recent wound culture grew MRSA sensitive to doxycycline. He does not report increased pain, swelling, or drainage associated with the left plantar foot diabetic ulcer nor does he report fever, chills, or shakes as he has previously. He's compliant with his antibiotic and diabetes medications and states his blood sugars are around 150- 200. He's also met with his new PCP in the past week to establish care. 07/06/14 The patient does not report pain in either foot nor fever or chills. He states he's been compliant with his doxycycline and ciprofloxacin regimen as well as his diabetes regimen. He's not yet established with a PCP but has an appointment in October with a provider in [place]. He also states he does not leave his car very often and so has not had a need to use the wheelchair for offloading. 07/03/14 The patient reports that he is taking his antibiotics regularly now and does not report shakes fever or chills. He would prefer a PCP in [place] to one in [place] if he is not able to see someone in town. 06/29/14 The patient states he's been mostly compliant with his antibiotics that now includes doxycycline plus cipro. He feels the left foot swelling and erythema are beginning to improve. He's also taking a lower dose of metformin along with his glipizide and he does not report 'shakes' as he did at the last visit. 06/26/14 The patient states he experienced some intermittent 'shakes' a couple of day ago and felt it was do to his metformin so he stopped taking it. He does not report fever, sweats, or chills however. He says he's been taking cipro as prescribed but he feels the left foot swelling and erythema are slowly progressing. He also admits to not using his wheelchair or can as recommended and walking a good bit over the weekend. 06/22/14 The patient's new to our clinic but was seen twice on consult as an inpatient over the past month. He's a homeless gentleman with a large left 1st MTPJ plantar ulcer and a smaller right lateral 5th MT ulcer. He's now on a 6 week course of ciprofloxacin based on his MRI that showed possible early osteomyelitis in the left 1st MTPJ sesmoid bone. Deep wound cultures from 06/16/14 grew Group A Streptococcs. He feels the swelling and erythema have improved in the left forefoot as has the drainage. He also states his subjective fevers have resolved. He's a newly diagnosed diabetic and is now on Metformin and Glipizide with an A1c 10.2 on 05/17/14 and he states he's compliant with his medication regimen. His arterial doppler showed only mild atherosclerotic disease in the right SFA. Of note, he's not yet established with a PCP at the [facility] and he states he use a wheelchair for mobilizing except for very short walks when he uses a cane to help offload the left foot. Family History This information was obtained from the patient Cancer - Father Social History This information was obtained from the patient Current every day smoker - 1 pack per day, Alcohol Use - none, Caffeine Use - rare, Children - 2 sons, Homeless, Lives in - [place], Marital Status - single, Occupation - Unemployed, Substance Abuse - Patient denies substance abuse., Tobacco Use (deprecated) Past Medical History This information was obtained from the patient Patient has a medical history of: Diabetes, type II (A1c > 14 05/23/16; 10.2 06/06/14) Osteomyelitis (left 1st MTPJ sesmoid) Homeless Diabetic foot ulcer - 06/06/2014 (left 1st MTPJ; Rivera grade III with osteomyelitis; MRSA positive deep wound culture 07/11/14) Diabetic foot ulcer - 06/22/2014 (right 5th MT; Rivera grade I) Surgical History This information was obtained from the patient Patient has a surgical history of: Left ankle fracture with 3 pins and 3 screws (2 years ago ) Carpal tunnel surgery bilateral hands (4 years ago) Hernia repair (15 years ago) Complaints and Symptoms This information was obtained from the patient Patient complains of: General Notes: I have reviewed and concur with the Review of Systems and Past Family Social History documents completed by the clinician, I have reviewed and concur with the Wound Assessment document completed by the clinician Integumentary (Hair/Skin/Nails): Open Sore Musculoskeletal: Assistive Devices Neurological: Abnormal Gait, Loss of Protective Sensation Prior Wound History: Drainage, Erythema, Malodor Psychiatric: Depression Patient denies complaints or symptoms related to: Cardiovascular (Central): Irregular heart beat Cardiovascular (Central/Peripheral): Lower extremity (leg) resting pain, Lower extremity (leg) swelling Cardiovascular (Peripheral) Constitutional Symptoms (General Health): Chills, Fever, Marked Weight Change Ear/Nose/Mouth/Throat: Hearing Loss / Aid Gastrointestinal (GI): Nausea / Vomiting, Stomach/abdominal pain Hematologic/Lymphatic: Bleeding / Clotting Disorders, Bleeding Tendency Musculoskeletal: Joint Swelling, Muscle Weakness Prior Wound History: Bleeding, Pain Psychiatric: Memory Loss Respiratory: Oxygen Use, Shortness of Breath Medications ProAir HFA 90 mcg/actuation aerosol inhaler inhalation HFA aerosol inhaler inhalation metformin 500 mg tablet oral 1 1 tablet oral twice daily Lantus U-100 Insulin 100 unit/mL subcutaneous solution subcutaneous 10 Basaglar 10 units once daily for 30 days for diabetes gentamicin 0.1 % topical ointment topical ointment topical once daily for 7 days for infected ulcer OBJECTIVE Constitutional Vital signs reviewed and noted. Dishelved. Height/Length: 73 in (185.42 cm), BMI : 0, Temperature: 98.6 ?F (37 ?C), Pulse: 94 bpm, Respiratory Rate: 16 breaths/min, Blood Pressure: 116/77 mmHg, Pulse Oximetry: 96 %. Ears, Nose, Mouth, and Throat: No clinically significant hearing loss on informal examination. Respiratory: No respiratory distress. Even respirations and without use of accessory muscles.. Cardiovascular: 1+ left lower extremity edema. Gastrointestinal (GI): Obese. Nondistended.. Musculoskeletal: Severe left foot Charcot deformity. Integumentary (Hair, Skin) No periwound erythema, warmth, or significant drainage. No periwound rashes appreciated or noted otherwise.. Refer to appropriate clinician wound documentation for this visit; left foot ulcer extends to subcut with base partially covered with pink granulation, remainder fibrin and slough. Moderate amount of callus in the periulcer area. Wound #5 Left, Plantar Foot is a chronic Rivera Grade 3 Diabetic Ulcer and has received a status of Not Healed. Initial wound encounter measurements are 0.8cm length x 0.3cm width x 0.1cm depth, with an area of 0.24 sq cm and a volume of 0.024 cubic cm. No tunneling has been noted. No sinus tract has been noted. No undermining has been noted. There was no drainage noted. The patient reports a wound pain of level 0/10. The wound margin is callus. Wound bed has No epithelialization, No eschar, Yes slough, No granulation. The periwound skin moisture is normal. The periwound skin color is normal. The periwound skin exhibited: Callus. The temperature of the periwound skin is WNL. Periwound skin does not exhibit signs or symptoms of infection. Local Pulse is Palpable. Neurological: Cranial nerves grossly intact with symmetric function normal by informal observation.. ASSESSMENT Active Problems ICD-10 (Encounter Diagnosis) L97.522 - Non-pressure chronic ulcer of other part of left foot with fat layer exposed (Encounter Diagnosis) E11.621 - Type 2 diabetes mellitus with foot ulcer (Encounter Diagnosis) E11.65 - Type 2 diabetes mellitus with hyperglycemia PROCEDURES Wound #5 Wound #5 (Diabetic Ulcer) is located on the left, plantar foot. A skin/ subcutaneous tissue level surgical debridement with a total area debrided of 0.08 sq cm was performed by Jorge Luis Max MD. Subcutaneous was removed along with devitalized tissue: callus and slough. The following instrument(s) were used: curette. Pain control was achieved using 4% Lido. A time out was conducted prior to the start of the procedure. A minimal amount of bleeding was controlled with n/a. The procedure was tolerated well with a pain level of 0 throughout and a pain level of 0 following the procedure. Post Debridement Measurements: 0.4cm length x 0.2cm width x 0.2cm depth; with an area of 0.08 sq cm and a volume of 0.016 cubic cm; Additional Information Muscle fascia or bone removed and sent to pathology?: No PLAN Wound Orders: Wound #5 Left, Plantar Foot Topical Treatments Antibiotic/Antimicrobial Ointment/Cream. - Gentamicin ointment Dressings Primary dressing: - Foam Cover and secure with: - Tape Change Dressing: - Daily Additional Orders: Cleanser Cleanse Wound: - Normal Saline and gauze. May Shower. - Please avoid getting tap water in wound or on dressing. Cover while in shower. Off-Loading Keep weight off: - Left foot Follow-Up Appointments Return Appointment: - - One week Other information: If you develop fever, chills, increased pain, drainage, redness or swelling please call our office. If after hours, respond to the ER. Should you experience any significant changes in your wound(s) or have any questions regarding your home care instructions please contact the wound center @ [phone]. If after hours, contact your primary care physician or go to the hospital emergency room. Scribing Attestation I attest, as the nurse, that I scribed these orders for the physician. Laboratory: Culture Wound General Notes: We will call with any positive wound cultures requiring oral antibiotics. I've reviewed the clinician's documentation and agree with the evaluation and plan as written. In addition, the patient's ulcer demonstrates evidence of non-viable devitalized tissue which will continue to benefit from sharp debridement to help promote granulation and expedite healing. Also, the patient will continue to follow up with his PCP regarding his poorly controlled blood sugars. Electronic Signature(s) Signed By: Date: Jorge Luis Max MD 10/27/2017 16:47:11 Entered By: Jorge Luis Max on 10/27/2017 16:40:24
== END ==
PROVIDERS: PCP Family Medicine; Visit Provider Internal Medicine
DX: E11.621 Type 2 diabetes mellitus with foot ulcer (principal); E11.65 Type 2 diabetes mellitus with hyperglycemia; L97.522 Non-pressure chronic ulcer of other part of left foot with fat layer exposed
CPT/HCPCS: 11042; 87070; 87075; 87077; 87147; 87186; 87205

== ENCOUNTER → 2017-11-04 08:47 | Outpatient (CLI) | payer OTHER, MEDICAID, SELFPAY | PROVIDERS: PCP Family Medicine; Visit Provider Internal Medicine | DX: E11.621 Type 2 diabetes mellitus with foot ulcer (principal); L97.521 Non-pressure chronic ulcer of other part of left foot limited to breakdown of skin | CPT/HCPCS: 97597 ==

== ENCOUNTER → 2017-11-12 09:16 | Outpatient (CLI) | payer OTHER, MEDICAID, SELFPAY ==
--- NOTE | 2017-11-12 | OV.WND_ITS ---
Progress Note Details Patient Name: David Givens Patient Number: [id number] PatientPatientDate: 11/12/2017 Clinician: Verito Rocha Clinician Cosigner: Ashley Kumar Physician / Hydrographic Engineer: Jorge Luis Max SUBJECTIVE Chief Complaint This information was obtained from the patient Diabetic ulcer on left foot. Allergies Vicodin (Reaction: itching), codeine (Severity: Mild, Reaction: stomach upset) HPI This information was obtained from the patient 11/12/17. Seen by Dr. Max. The patient does not report drainage or pain associated with chronic left foot diabetic ulcer since last visit. 11/04/17. Seen by Dr. Max. The patient does not report drainage or pain associated with chronic left foot diabetic ulcer since last visit. 10/27/17. Seen by Dr. Max. The patient returns today with recurrence of the left plantar foot 1st MTPJ diabetic foot ulcer that was very chronic but eventually healed in May of this year. He does not report pain or drainage associated with this. He was seen in August also but did not follow up. His blood sugars continue to be elevated over 300 and he states his Lantus is being increased by his PCP. 09/04/17. Seen by Rashad Dupont PA-C. The patient reports minimal drainage from his left foot ulcer. His blood sugars continue to be >150 on most days. 08/28/17. Seen by Dr. Max. The patient only picked up his levofloxacin 3 days ago that was prescribed for the recent E. coli culture taken from the left plantar foot diabetic ulcer. He does not report adverse side effects nor significant drainage from the ulcer. Of note , his blood sugar today is again over 300 and he states he has rhubarb pie last night. He has an appointment with is PCP next week to discuss adjusting his dose of Lantus. 08/21/17. Seen by Dr. Max. The patient's wound culture taken from the recurrent left 1st MTPJ diabetic ulcer grew E. coli and Streptococcus and he's applying topical gentamicin as recommended. The nurse reports maceration and drainage on his dressing today and his blood sugar is again over 300. 08/17/17. Seen by Dr. Max. The patient returns today with recurrence of the left plantar foot 1st MTPJ diabetic foot ulcer that was very chronic but eventually healed in May of this year. He states a callus has been accumulating and it started to drain last week. He does not report pain in the foot nor swelling but states the 1st toe appeared red yesterday however this has now resolved. He uses a wheelchair for offloading and his blood sugars continue to be over 300. He has a history of poor compliance with his diabetes management and resides in assisted living. 06/02/17. Seen by Dr. Max. The patient does not report drainage or pain associated with chronic left foot diabetic ulcer since last visit. 05/26/17. Seen by Rashad Dupont PA-C. The patient does not report increased drainage from his left foot diabetic ulcer. 05/12/17. Seen by Dr. Max. The patient does not report pain nor increased drainage associated with the chronic left plantar foot diabetic ulcer. He also continues on doxycycline for chronic osteomyelitis of the left MTPJ. 05/05/17. Seen by Rashad Dupont PA-C. The patient reports that he will be moving into [facility] this Thursday. He continues to have high blood sugars and is reportedly compliant with his doxycycline (though he thought he was taking levaquin) and he does not report increased drainage. 04/28/17. Seen by Rashad Dupont PA-C. The patient reports having to walk more than normal because his truck ran out of gas this week. He has not noted any drainage from his left foot diabetic ulcer. He continues on Doxycycline for chronic osteomyelitis. His blood sugars have been >200 this week. Of note, he is wearing regular shoes and does not own shoes that are custom fitted to his foot deformities, which have been present for several years. 04/21/17. Seen by Rashad Dupont PA-C. The patient reports minimal drainage from his left 1st toe diabetic ulcer. Today he reports that he believes he was taking Levaquin recently and will be out of antibiotics today. His most recent X-ray of the left foot shows worsening chronic osteomyelitis. 04/18/17. Seen by Rashad Dupont PA-C. The patient reports decreased drainage from his chronic left 1st toe ulcer. He is nearly out of his Augmentin, which he was taking for his ulcer infection. 04/13/17. Seen Dr. Max. The patient returns to our clinic, after being seen on Thursday, due to increased swelling and erythema of the left first toe over the weekend. His first MTPJ diabetic ulcer has improved considerably over the past few weeks and he has been taking Augmentin for an associated group B strep positive wound culture taken last week. He does not report fevers or pain in the foot and his blood sugars continue to be significantly elevated. 04/10/17. Seen by Rashad Dupont PA-C. The patient reports continued redness and warmth despite taking Augmentin for his strep positive ulcer infection of the left 1st toe. He reports missing some doses of the antibiotic however. His blood sugars have been high since he ran out of insulin a few days ago. He is currently still homeless with housing pending and is able to stay in a local motel on most nights. 04/07/17. Seen by Dr. Max. The patient does not report pain nor increased drainage associated with the chronic left plantar foot diabetic ulcer. He's now on Augmentin again for cellulitis of the left 1st toe diagnosed at his last visit and his wound culture grew Group B Strep. He feels the swelling decreased and he does not report fevers, pain, or adverse side effects of the antibiotics. 04/03/17. Seen by Dr. Max. The patient does not report pain nor decreased drainage associated with the chronic left plantar foot diabetic ulcer however he does feel that his left first toe is red and swollen today. He does not report fevers nor feeling on well and has been off antibiotics were treating chronic osteomyelitis of the first MTPJ for at least a week. His blood sugars continue to be persistently elevated and despite establishing with primary care is provider months ago he has not been able to improve upon his diabetes management. 03/27/17. Seen by Dr. Max. The patient does not report increased drainage or pain associated with the chronic left plantar foot diabetic ulcer since his last visit. His wound culture from the last visit grew group B streptococcus and he's not currently on antibiotics. 03/24/17. Seen Dr. Max. The patient is here for a change of his wound VAC however the staff report increased maceration around the left plantar foot diabetic ulcer. He has now been off of antibiotics for about a week and has been treated for chronic osteomyelitis for the past few months. 03/20/17. Seen by Dr. Max. The patient states his wound VAC stopped working earlier in the week and he has not picked up his prescription of Augmentin that was to treat chronic osteomyelitis associated with the left plantar foot diabetic ulcer. Of note, his blood sugar today is again very elevated at 386. 03/11/17. Seen by Dr. Max. The patient states his wound VAC became dysfunctional 2 days ago. He continues on Augmentin for chronic osteomyelitis associated to chronic left plantar foot diabetic ulcer. He does not report pain nor significant drainage from the ulcer nor side effects from antibiotics. 03/06/17. Seen by Dr. Max. The patient does not report increased drainage or pain associated with the chronic left plantar foot diabetic ulcer since his last visit. He states he's continuing on Augmentin for underlying chronic osteomyelitis of the 1st MTPJ as recommended but will run out of antibiotics early next week. 02/27/17. Seen by Dr. Max. The patient does not report pain or increased drainage associated with chronic left plantar foot diabetic ulcer since last visit. His wound VAC was changed to a SID and he tolerated this well without any issues. He continues on Augmentin for underlying chronic osteomyelitis and his blood sugar is again elevated over 300 today despite establishing with primary care and being started on his insulin and metformin. 02/24/17. Seen by Dr. Max. The patient does not report increased pain nor drainage associated with the chronic left plantar foot diabetic ulcer. His blood sugars are again near 400 however he has seen his primary care provider and has been started on insulin and metformin which he will rock picker from the pharmacy today. He continues on antibiotics also for underlying chronic osteomyelitis of the left foot. 02/20/17. Seen by Dr. Max. The patient does not report increased pain nor drainage associated with the chronic left plantar foot diabetic ulcer. Of note he is homeless and his mobility has been limited due to the winter weather recently. He is a bit noncommittal regarding adherence to his antibiotic regimen that's treating underlying chronic osteomyelitis. His blood sugars again are over 300 and he has a history of noncompliance regarding his diabetes management. 02/17/17. Seen by Rashad Dupont PA-C. The patient reports no increase in drainage from his diabetic foot ulcer of the left foot. He reports that his blood sugar is high today because he drank several slurpees from [employer] last night. 02/13/17. Seen by Dr. aMx. The patient states that there has been increased drainage associated with the chronic left plantar foot diabetic ulcer over the past few days. The staff also report a significant malodor today. He admits to missing a few days worth of antibiotics as he's been feeling unwell over the past week with an upper respiratory tract infection.He is also scheduled appointment to establish with his primary care provider and of note his blood sugar is again significantly elevated at 293 today. 02/06/17. Seen by Dr. Max. The patient does not report increased drainage nor pain associated with the chronic left plantar foot diabetic ulcer since his last visit. He continues on Augmentin for chronic osteomyelitis of the foot. He also has an appointment with [facility] at the end of the month to address his homeless situation and will establish with his primary care provider in the first week in February to discuss management of his poorly controlled diabetes and other medical issues. 02/03/17. Seen by Rashad Dupont PA-C. The patient reports stable drainage from his left foot diabetic ulcer with underlying chronic osteomyelitis. He is about to finish his current prescription for osteomyelitis and notes no pain or other new symptoms related to this condition. His blood sugars continue to be >200 and he has not yet made an appointment with his PCP to address this. He says he is running out of insulin and has no refills. He continue to be homeless. 01/30/17. Seen by Dr. Max. The patient does not report increased drainage or pain associated with the chronic left plantar foot diabetic ulcer since his last visit. He continues on antibiotics for underlying chronic osteomyelitis and is her primary side effects. He also has an appointment within the next 3 weeks with his establishing primary care provider and we'll be addressing his diabetes management at that time. He also continues to reside in a motel while he is awaiting a decision on possible long-term placement in a attempt to resolve his homeless situation 01/23/17. Seen by Dr. Max. The patient is a report increased drainage from pain associated with the chronic left plantar foot diabetic ulcers since last visit. He is supposed to be continued on Augmentin for associated underlying chronic osteomyelitis however he admits that he has missed a few doses recently and he is establishing with new primary care provider. He also has a older adult social work specialist with him today assisting with his housing and healthcare needs. Of note, the patient admits to having a degree of cognitive dysfunction that frequently affects his ability to manage his diabetes medications, antibiotics, and maintain a stable housing situation. 01/20/17. Seen by Rashad Dupont PA-C. The patient reports continued purulent drainage from his left foot diabetic ulcer. He continues to take antibiotics for his chronic osteomyelitis irregularly and reports that his blood sugars continue to be above 200 most days. He remains homeless though states he may have a lead on some housing assistance. Due to his homelessness he walks on his foot more than is recommended. 01/16/17. Seen by Dr. Max. The patient does not report increased drainage associated with the chronic left plantar foot diabetic ulcer. The staff report however that he has missed a few doses of his antibiotics since treating underlying chronic osteomyelitis. Of note, he is homeless and has been sleeping in his car which is relevant in that the temperatures approached freezing overnight and he's not wearing socks other than the non- skid socks we've provided at the clinic. 01/09/17. Seen by Rashad Dupont PA-C. The patient reports increased drainage in his SNAP canister and he is nearly completed with his course of Cipro. His blood sugars continue to be above >150 when he takes them. 01/06/17. Seen by Rashad Dupont PA-C. The patient reports intermittently taking his antibiotics and has been unable to completely offload his ulcer due to being homeless. He reports that most blood sugars in the past few days have been over 200. 01/02/17. Seen by Dr. Max. The patient does not report increased pain or drainage associated with the chronic left plantar foot diabetic ulcer however the wound VAC leaked earlier in the week and was removed. The patient is noncommittal regarding the use of his antibiotics treating chronic osteomyelitis of the left first MTPJ also. He's not report fevers or feeling unwell is also noncommittal regarding 100% offloading that's been recommended. 12/30/16. Seen by Rashad Dupont PA-C. The patient reports intermittent compliance with his antibiotics. He admits he likes to take two tablets for the first dose and also admits to accidentally skipping doses. His foot ulcer has had increased drainage and increased odor. 12/26/16. Seen by Dr. Max. The patient is now taking ciprofloxacin to treat the recent Pseudomonas positive wound culture taken from the chronic left plantar foot diabetic ulcer. He does not report adverse side effects nor increased pain, swelling, or drainage associated with the ulcer. His blood sugars continue to be over 300 and he has not yet followed up on our recommendation to discuss this with his primary care provider to adjust his insulin. 12/23/16. Seen by Rashad Dupont PA-C. The patient reports he has still not been able to obtain his Levaquin to treat his left foot diabetic ulcer infection. Our office has continued to try and facilitate the prior authorization of this medication without success. The patient does not report fever or chills but does report that drainage has soaked through his sock. 12/19/16. Seen by Dr. Max. The patient does not report increased pain or drainage associated with the chronic left plantar foot diabetic ulcers since his last visit. He is started on levofloxacin for the new pseudomonas positive wound culture has not been able to rock picker the antibiotic due to insurance prior authorization issues. 12/16/16. Seen by Dr. Max. The patient does not report increased pain or drainage associated with the chronic left plantar foot diabetic ulcer since last visit. His wound VAC became dysfunctional over the weekend and he presented to the clinic yesterday at which time it was removed. He states he continues to take his antibiotics for chronic osteomyelitis of the left first MTPJ however we are unable to confirm how many tablets he has left and is been rather noncompliant with this in the past. His blood sugars also continue to be significantly elevated. 12/12/16. Seen by Dr. Max. The patient does not report pain nor increased drainage associated with the chronic left plantar foot diabetic ulcer and he continues on antibiotics to treat associated chronic osteomyelitis of the left 1st MTPJ. 12/09/16. Seen by Dr. Max. The patient reports drainage in his shoe and sock today associated with the chronic left plantar foot diabetic ulcer. He states that the wound VAC however appear to be sealed and operating properly over the past few days. He is on amoxicillin for chronic osteomyelitis of the left first MTPJ and complains of some GI upset. 12/05/16. Seen by Dr. Max. The patient is now on amoxicillin for the recent Streptococcus positive wound culture taken as last visit. This is also treating chronic osteomyelitis of the left foot. He does not report adverse side effects nor pain or increased drainage associated with chronic left plantar foot diabetic ulcer. He is also tolerating negative pressure wound therapy without difficulty. 12/02/16. Seen by Dr. Max. The patient presented to clinic yesterday for a nurse visit following a wound vac dysfunction the previous day. He'd left the foam dressing in place however for the previous 24 hours despite being advised to remove it within 2 hours of it not working. He does not report pain at the chronic left diabetic foot ulcer site and he's been off of his antibiotics for 1-2 days (he's unsure of when he stopped taking them) and states he has a few each of the levofloxacin and Augmentin tablets that have been prescribed recently to treat underlying chronic osteomyelitis of the left foot. 11/28/16. Seen by Dr. Max. The patient does not report pain nor increased drainage associated with the chronic left plantar foot diabetic ulcer. He should've completed his course of levofloxacin by now but states that he has a couple of tablets left over. In relation to this he has also not taken his prior antibiotic prescriptions as scheduled. 11/25/16. Seen by Dr. Max. The patient does not report pain nor increased drainage associated with the chronic left plantar foot diabetic ulcer. He has nearly completed his course of levofloxacin that is treating underlying chronic osteomyelitis of the foot and he does not report adverse side effects. Also, his blood sugars are again over 300 and he states he does have an appointment next week week with his primary care provider to address his diabetes. 11/21/16. Seen by Dr. Max. The patient does not report pain in the left foot nor increased drainage associated with chronic plantar diabetic foot ulcer since his last visit. He continues on levofloxacin for chronic osteomyelitis of the left foot and does not report adverse side effects nor fevers or feeling unwell today. 11/18/16. Seen by Dr. Max. The patient does not report pain in the left foot nor increased drainage associated with chronic plantar diabetic foot ulcer since his last visit. He found the levofloxacin that he lost and restarted this over the weekend. He does not report adverse side effects nor fevers or feeling unwell today. 11/14/16. Seen by Dr. Max. The patient's left foot wound VAC fell off yesterday. He also states that he lost his levofloxacin that's treating chronic osteomyelitis of the left foot but he has started taking the Augmentin that he had leftover from his last prescription. He does not report increased drainage associated with a chronic left plantar foot diabetic ulcer however does report some pain at the site. 11/11/16. Seen by Dr. Max. The patient does not report increased drainage associated with a chronic left plantar foot diabetic ulcer and he continues on levofloxacin for underlying chronic osteomyelitis of the left first MTPJ. He does not reporting adverse side effects of antibiotics, fevers, or feeling unwell. His blood sugars continue to be significantly elevated and he is noncommittal regarding checking them and taking his insulin as prescribed. He also has not seen his primary care provider in the last few months as we recommended. 11/07/16. Seen by Dr. Max. The patient is now on levofloxacin and reports some nausea since starting this. He does not report significant drainage or pain associated with chronic left plantar foot diabetic ulcer however since his last visit. 11/04/16. Seen by Dr. Max. The patient states that he completed his Augmentin 2 days ago and he does not report increased drainage or pain associated with the chronic left plantar foot diabetic ulcer nor the underlying chronic osteomyelitis. His recent wound culture grew Klebsiella which is sensitive to Augmentin and he does not report fevers, feeling unwell, or adverse side effects to the antibiotics. 10/31/16. Seen by Dr. Max. The patient's wound VAC began leaking soon after his last visit and was removed at that time. He continues on Augmentin for chronic osteomyelitis associated with the chronic left plantar foot diabetic ulcer and feels that the pain has resolved over the past week. 10/28/16. Seen by Dr. Max. The patient states that the wound VAC started leaking yesterday he presented to the clinic and it was removed with the left plantar foot ulcer filled with alginate. He states he continues to take his antibiotics for chronic osteomyelitis of the foot and does not report adverse side effects. His blood sugars continue to be consistently over 200 however have improved somewhat as they were typically over 300 previously. He does not report fevers, pain in the foot, nor feeling unwell in general. 10/24/16. Seen by Dr. Max. The patient states he has restarted taking his antibiotics as prescribed and he does not report significant drainage associated with chronic left foot diabetic ulcer since his last visit. He also reports the pain has improved and he is not reporting fevers or feeling unwell. He is taking antibiotics for chronic osteomyelitis associated with the ulcer. 10/21/16. Seen by Dr. Max. The patient is not very engaging today and he is noncommittal regarding whether he is taking his antibiotics as prescribed. His recent wound culture grew Klebsiella sensitive to Augmentin however he states that his left foot pain associated with the diabetic ulcer and chronic osteomyelitis has increased over the past week. He does not report fevers however nor feeling unwell and his negative pressure wound therapy was held at last visit due to deterioration of the ulcer and concern for change of infection. 10/17/16. Seen by Dr. Max. The patient reports some pain associated with the chronic left plantar foot diabetic ulcer since his last visit staff report increased maceration in the nunu-ulcer area. He does not report fevers however states that he's not been taking his antibiotic entirely as prescribed. His blood sugars are over 300 again today he states he has been offloading the foot as recommended. 10/14/16. Seen by Dr. Max. The patient reports being more active on his feet the past few days despite wearing a snap negative pressure wound dressing. Does not report increased drainage associated with the left plantar foot diabetic ulcer and continues on Augmentin for chronic osteomyelitis of the foot. His blood sugars are improving somewhat into the 200s and he states he is checking these and taking insulin as recommended. He has not yet followed up with his primary care provider as recommended however in terms of his diabetes management. 10/10/16. Seen by Dr. Max. The patient has restarted his Augmentin as recommended that's treating chronic osteomyelitis of the left foot. He does not report increased drainage associated with the left plantar foot diabetic ulcer since his last visit. His blood sugars continue to be significantly elevated and he has not yet scheduled and appointment with his primary care provider to discuss this. 10/07/16. Seen by Dr. Max. The patient does not report increased drainage associated with the chronic left foot diabetic ulcer. He continues on negative pressure wound therapy and states he forgot to rock picker his antibiotics that are treating chronic osteomyelitis in the foot. His blood sugars continue to be significantly elevated and is noncommittal regarding checking his blood sugars and taking his insulin routinely. 10/03/16. Seen by Dr. Max. The patient states he is nearly out of antibiotics that have been treating chronic osteomyelitis the left foot. He does not report any problems regarding the overlying diabetic foot ulcer nor negative pressure wound therapy. Also, his blood sugars 381 today and has been significantly elevated for months. This is despite his recent statement that he's been checking blood sugars and taking his insulin routinely. 09/30/16. Seen by Dr. Max. The patient does not report significant drainage or other acute issues associated with the chronic left plantar foot diabetic ulcers since his last visit. He continues on antibiotics for underlying osteomyelitis of the foot and does not report fevers or other side effects of antibiotics. He states his blood sugars are improving and are in the 200s this morning and that he's been checking them and taking his insulin as recommended. 09/26/16. Seen by Dr. aMx. The patient does not report pain nor increased drainage associated with chronic left plantar foot diabetic ulcer and underlying chronic osteomyelitis since his last visit. Of note, he admits to not necessarily taking all of his antibiotics as recommended and his recent culture grew Klebsiella for which he is to be taken Augmentin. His blood sugars also continue to be elevated over 300 despite the fact he states he's been checking them taking his insulin. 09/23/16. Seen by Dr. Max. The patient does not report increased drainage or other acute changes regarding his chronic left plantar foot diabetic ulcer. He is checking his blood sugars and taking insulin however states that they still are often times over 300. He continues on Augmentin for underlying osteomyelitis of the foot and does not report adverse side effects. 09/21/16. Seen by Rashad Dupont PA-C. The patient reports that he continues to have high blood sugars despite taking 40 units twice daily of insulin. He reports occasionally missing a dose but tries to comply with his orders. He believes he has a follow up appointment soon with his PCP regarding diabetes but is unsure of the date. 09/15/16. Seen by Rashad Dupont PA-C. The patient reports continued difficulty sleeping due to difficulty breathing while supine, though he feels this is somewhat improved as he is reducing his fluid intake. He reports blood sugars consistently above 150 and believes he has an appointment with his PCP to review his diabetic regimen soon. He continues on augmentin for his osteomyelitis and his drainage from his left foot ulcer has been stable. 09/09/16. Seen by Dr. Max. The patient is not very engaging today however does not report any new problems regarding the chronic left plantar foot diabetic ulcer nor the wound VAC. He states he continues to take Augmentin as recommended for associated chronic osteomyelitis of the left first MTPJ and he is offloading as much as possible. He states he is also checking his blood sugars and taking his insulin as recommended however he has been quite noncompliant with this in the past. 09/05/16. Seen by Dr. Max. The patient does not report pain or increased drainage associated with the chronic left plantar foot diabetic ulcer since his last visit. He states he continues on Augmentin for osteomyelitis of the foot and does not report adverse side effects although he's not had a recent Rx written. His recent wound culture grew Klebsiella and group B Strep. 09/02/16. Seen by Rashad Dupont PA-C. The patient reports continued thirst and continued intake of a large amount of water. He reports that it is very difficult for him to resist drinking large amounts of fluids. His blood sugars continue to be over 200 and his chronic left foot diabetic ulcer has had stable drainage. He continues on oral antibiotics for his chronic osteomyelitis of the left foot. 08/29/16. Seen by Dr. Max. The patient does not report pain or increased drainage associated with the chronic left plantar foot diabetic ulcer since his last visit. He continues on Augmentin for osteomyelitis of the foot and does not report adverse side effects. His shortness of breath has improved as has his leg swelling and his recent ECHO showed only some diastolic dysfunction. He does report being very thirsty and drinking over a gallon of water and flavored drinks daily. His blood sugars have also been very poorly controlled over the past few months. 08/22/16. Seen by Dr. Max. The patient does not report pain or increased drainage associated with the chronic left plantar foot diabetic ulcer since his last visit although he's not very engaging today. He continues on Augmentin for osteomyelitis of the foot and does not report adverse side effects. Of note, his shortness of breath has improved as has his leg swelling and his ECHO showed only some diastolic dysfunction. He's not yet discussed this with is PCP however. 08/14/16. Seen by Dr. Max. The patient does not report pain or increased drainage associated with the chronic left plantar foot diabetic ulcer since his last visit. He continues on antibiotics for osteomyelitis of the foot and does not report adverse side effects. 08/19/16. Seen by Rashad Dupont PA-C. The patient reports continued high blood sugars, with all readings so far above 200. He reports stable drainage from her diabetic foot ulcer with underlying osteomyelitis and he has an upcoming echocardiogram to assess his orthopnea, which he reports is somewhat improved recently. He continues on augmentin for his underlying osteomyelitis. 08/15/16. Seen by Dr. Max. The patient does not report pain or significant drainage associated with chronic left plantar foot diabetic ulcer since his last visit. He is tolerating negative pressure wound therapy without difficulty and continues on antibiotics for acute osteomyelitis of the left first metatarsal. His blood sugars are over 400 today and he's non- committal regarding adherence to his insulin regimen. 08/12/16. Seen by Dr. Max. The patient reports that the SNAP wound VAC has not been working for the past day or so however he did not take the dressing off as recommended. The staff reports significant maceration associated with the chronic left plantar foot diabetic ulcer and he continues on antibiotics for underlying osteomyelitis of the first metatarsal. He is not checking blood sugars routinely and they continued to be significantly elevated over 200. He does not report fevers, pain in the foot, or feeling unwell. 08/07/16. Seen by Dr. Max. The patient does not report pain or significant drainage associated with chronic left plantar foot diabetic ulcer since his last visit. He is tolerating negative pressure wound therapy without difficulty and continues on antibiotics for acute osteomyelitis of the left first metatarsal. 08/04/16. Seen by Rashad Dupont PA-C. The patient reports continued difficulty sleeping due to shortness of breath when supine. He reports continued drainage from his Rivera grade III diabetic ulcer of the left foot. He continues to have very high blood sugars, with most readings above 200. 07/31/16. The patient does not report pain or significant drainage associated with chronic left plantar foot diabetic ulcer since his last visit. He is tolerating negative pressure wound therapy without difficulty and continues on antibiotics for acute osteomyelitis of the left first metatarsal. 07/28/16. Seen by Rashad Dupont PA-C. The patient reports continued drainage from his left foot Rivera grade III diabetic ulcer with underlying osteomyelitis, confirmed again recently on MRI. His blood sugars continue to be mostly above 250. He continues on antibiotics (augmentin until 08/08/16) to treat the chronic infection of this ulcer and to treat his osteomyelitis. 07/25/16. Seen by Dr. Max. The patient does not report pain or significant drainage associated with chronic left plantar foot diabetic ulcer since his last visit. His wound culture from the last visit grew Enterococcus and Strep group B. He is tolerating negative pressure wound therapy without difficulty and continues on antibiotics for acute osteomyelitis of the left first metatarsal. He does not check his blood sugars regularly and is noncommittal regarding taking his insulin as prescribed. He is also not wearing his offloading shoe as recommended. He does not report adverse side effects from the antibiotics, fevers, or feeling unwell in general. 07/23/16. Seen by Dr. Max. The patient does not report increased drainage or pain associated with the chronic left plantar foot diabetic ulcer and he's tolerated the wound VAC over the past few days without any difficulty. He continues on antibiotics for acute osteomyelitis of the left first metatarsal and does not report adverse side effects. He was seen by his primary care provider to establish care and specifically to address his diabetes and some recent shortness of breath which she states is now resolved. He states today that his medications have not been adjusted and he will see his primary care provider in 2 weeks again. His blood sugars continue to be elevated over 300 consistently. 07/21/16. Seen by Rashad Dupont PA-C. The patient reports severe shortness of breath with exertion and when supine, which begain 3 days ago and has worsened. The patient reports fevers and chills but denies chest pain. He has noted increased lower extremity edema during this time as well. He reports that he is unable to sleep because of the shortness of breath, but occasionally passes out from exhaustion. 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 07/17/16. Seen by Dr. Max. The patient continues on Bactrim for osteomyelitis of the left foot and he continues with negative pressure wound therapy to treat the overlying diabetic ulcer. His blood sugars continue to be significantly elevated despite increase his Lantus to 30 units daily. He will establish with his primary care provider early next week. 07/14/16. Seen by Dr. Max. The patient continues on Bactrim for osteomyelitis of the left first metatarsaland has tolerated the wound VAC treating the overlying diabetic ulcer without any issues. His blood sugar is 391 today and his Lantus has recently been increased to 20 units daily. He does not report fevers, feeling unwell, or adverse side effects from the Bactrim. 06/30/16. Seen by Dr. Max. The patient continues on antibiotics for his chronic and infected left plantar foot diabetic ulcer. His MRI confirms osteomyelitis of the head of the first metatarsal. He is tolerating negative pressure wound therapy however remains somewhat noncompliant in terms of removal of the wound VAC if it's not working. He is not routinely checking his blood sugars however but states he is taking is 10 units of Lantus as prescribed. He will establish with a primary care provider in about 2 weeks and he does not report fevers or feeling unwell in general. 07/07/16. Seen by Rashad Dupont PA-C. The patient reports that he completed his MRI examination of his left foot today, just before this appointment. He reports continued drainage from his chronic diabetic foot ulcer of the left foot. Due to a labelling error, the wound cultures taken at his last visit were not processed. 07/03/16. Seen by Dr. Max. The patient disconnected his wound vac 2 days ago however did not remove the dressing as instructed. He's also not checking his blood sugars or taking insulin as prescribed and his blood sugars continue to be frequently elevated over 300 while in the clinic. He does not report pain or increased drainage associated with the chronic left foot diabetic ulcer, nor fevers or feeling unwell, since his last visit. 06/30/16. Seen by Rashad Dupont PA-C. The patient reports no increase in drainage from his chronic left foot diabetic ulcer. He reports better compliance with his insulin and glucose checks and reports that many of his sugars are still above 300. 06/26/16. Seen by Dr. Max. The patient does not report any problems regarding his wound VAC and he continues on doxycycline without reporting adverse side effects for the chronic infection of the left plantar foot diabetic ulcer. He's not routinely checking his blood sugars nor taking his insulin as recently prescribed and he's to establish with his new PCP within one month. 06/23/16. Seen by Rashad Dupont PA-C. The patient reports high blood sugars in the past few days despite being prescribed insulin by Dr. Max. The patient admits to forgetting more than 1/2 of his insulin doses since he was prescribed them. His left plantar foot diabetic ulcer has had stable and continued drainage.. 06/20/16. Seen by Dr. Max. The patient does not report any problems regarding his wound VAC and he continues on antibiotics for the chronic infection of the left plantar foot diabetic ulcer. He started insulin recently and states his blood sugars are between 200 and 300 and he is offloading with a wheelchair as much as possible. 06/18/16. Seen by Dr. Max. The patient does not report problems regarding the negative pressure dressing that was placed 2 days ago to treat the chronic left plantar foot diabetic ulcer. He does not report pain in the foot nor increased drainage and he continues on doxycycline for a chronic wound infection. He's also started taking his long acting insulin as prescribed last week and states his appointment to establish care with a new PCP is in about a month. His blood sugars continue to be elevated over 200 however. 06/16/16. Seen by Rashad Dupont PA-C. The patient reports continued blood sugars above 300 and continued drainage from his left plantar foot diabetic ulcer. 06/09/16. Seen by Rashad Dupont PA-C. The patient reports that he has been leaving his leg dependant when he has been sleeping and is noted to have experienced weight gain since his last appointment. He continues to have very high blood sugars and now has an appointment with primary care to establish care. 06/06/16. Seen by Dr. Max. The patient does not report pain nor significant drainage associated with the chronic left foot diabetic ulcer over the past week. Also, his blood sugars are again over 200 today. 05/29/16. Seen by Dr. Max. The patient does not report pain nor significant drainage associated with the chronic left foot diabetic ulcer over the past week. Although he told the staff that he's discussed his diabetes management with a PCP he tells me has not yet re- established with a PCP as we've recommended so has not been checking blood sugars nor taking diabetes medication. 05/22/16. Seen by Dr. Max. The patient does not report pain nor significant drainage associated with the chronic left foot diabetic ulcer over the past week. 05/19/16. Seen by Rashad Dupont PA-C. The patient reports increased drainage from his chronic left foot diabetic ulcer since his last evaluation. The patient is not wearing his [employer] boot to offload his ulcer and he reports very high blood sugars in the previous week. The patient continues to be homeless and reports that he was focused on staying warm during the past few days. 05/12/16. Seen by Rashad Dupont PA-C. The patient reports intermittent compliance with his levaquin usage and has not seen [facility] yet for assessment and fitting of his [employer] boot. In addition he reports a new ulcer on his left 5th toe which began a couple days ago. 05/08/16. Seen by Dr. Max. The patient does not report significant drainage nor pain associated with the chronic left plantar foot diabetic ulcer. He continues on antibiotics for an associated wound infection and does not report adverse side effects.He is also not checking his blood sugars routinely and is currently homeless and living in his car. 05/05/16. Seen by Rashad Dupont PA-C. The patient returns to our clinic after spending 12 weeks at [facility]. He reports that his left plantar foot diabetic ulcer never fully healed. He also reports that he has a [employer] boot that he thinks still fits but is not wearing it. Currently he is on Bactrim and Cipro for an ulcer infection and reports missing doses frequently of these medications. 07/17/[address] Max. The patient does not report increased drainage, swelling, or erythema associated with his left plantar foot diabetic ulcer. He continues to offload the foot with a cane and wheelchair and is compliant with his antibiotic and diabetes regimens without reporting adverse side effects. 07/13/14 The patient's recent wound culture grew MRSA sensitive to doxycycline. He does not report increased pain, swelling, or drainage associated with the left plantar foot diabetic ulcer nor does he report fever, chills, or shakes as he has previously. He's compliant with his antibiotic and diabetes medications and states his blood sugars are around 150- 200. He's also met with his new PCP in the past week to establish care. 07/06/14 The patient does not report pain in either foot nor fever or chills. He states he's been compliant with his doxycycline and ciprofloxacin regimen as well as his diabetes regimen. He's not yet established with a PCP but has an appointment in October with a provider in [place]. He also states he does not leave his car very often and so has not had a need to use the wheelchair for offloading. 07/03/14 The patient reports that he is taking his antibiotics regularly now and does not report shakes fever or chills. He would prefer a PCP in [place] to one in [place] if he is not able to see someone in town. 06/29/14 The patient states he's been mostly compliant with his antibiotics that now includes doxycycline plus cipro. He feels the left foot swelling and erythema are beginning to improve. He's also taking a lower dose of metformin along with his glipizide and he does not report 'shakes' as he did at the last visit. 06/26/14 The patient states he experienced some intermittent 'shakes' a couple of day ago and felt it was do to his metformin so he stopped taking it. He does not report fever, sweats, or chills however. He says he's been taking cipro as prescribed but he feels the left foot swelling and erythema are slowly progressing. He also admits to not using his wheelchair or can as recommended and walking a good bit over the weekend. 06/22/14 The patient's new to our clinic but was seen twice on consult as an inpatient over the past month. He's a homeless gentleman with a large left 1st MTPJ plantar ulcer and a smaller right lateral 5th MT ulcer. He's now on a 6 week course of ciprofloxacin based on his MRI that showed possible early osteomyelitis in the left 1st MTPJ sesmoid bone. Deep wound cultures from 06/16/14 grew Group A Streptococcs. He feels the swelling and erythema have improved in the left forefoot as has the drainage. He also states his subjective fevers have resolved. He's a newly diagnosed diabetic and is now on Metformin and Glipizide with an A1c 10.2 on 05/17/14 and he states he's compliant with his medication regimen. His arterial doppler showed only mild atherosclerotic disease in the right SFA. Of note, he's not yet established with a PCP at the [facility] and he states he use a wheelchair for mobilizing except for very short walks when he uses a cane to help offload the left foot. Past Medical History This information was obtained from the patient Patient has a medical history of: Diabetes, type II (A1c > 14 05/23/16; 10.2 06/06/14) Osteomyelitis (left 1st MTPJ sesmoid) Homeless Diabetic foot ulcer - 06/06/2014 (left 1st MTPJ; Rivera grade III with osteomyelitis; MRSA positive deep wound culture 07/11/14) Diabetic foot ulcer - 06/22/2014 (right 5th MT; Rivera grade I) Complaints and Symptoms This information was obtained from the patient Patient complains of: General Notes: I have reviewed and concur with the Review of Systems and Past Family Social History documents completed by the clinician, I have reviewed and concur with the Wound Assessment document completed by the clinician Integumentary (Hair/Skin/Nails): Open Sore Musculoskeletal: Assistive Devices Neurological: Abnormal Gait, Loss of Protective Sensation Prior Wound History: Drainage, Erythema, Malodor Psychiatric: Depression Patient denies complaints or symptoms related to: Cardiovascular (Central): Irregular heart beat Cardiovascular (Central/Peripheral): Lower extremity (leg) resting pain, Lower extremity (leg) swelling Cardiovascular (Peripheral) Constitutional Symptoms (General Health): Chills, Fever, Marked Weight Change Ear/Nose/Mouth/Throat: Hearing Loss / Aid Gastrointestinal (GI): Nausea / Vomiting, Stomach/abdominal pain Hematologic/Lymphatic: Bleeding / Clotting Disorders, Bleeding Tendency Musculoskeletal: Joint Swelling, Muscle Weakness Prior Wound History: Bleeding, Pain Psychiatric: Memory Loss Respiratory: Oxygen Use, Shortness of Breath OBJECTIVE Constitutional Vital signs reviewed and noted. Dishelved. Height/Length: 73 in (185.42 cm), Weight: 257.8 lbs (117.18 kgs), BMI: 34, (36.17 ?C), Pulse: 103 bpm, Respiratory Rate: 18 breaths/min, Blood Pressure: 131/75 mmHg, Capillary Blood Glucose: 243 mg/dl, Pulse Oximetry : 95 %. Vital Signs Notes: Glucose per patient. Respiratory: No respiratory distress. Even respirations and without use of accessory muscles.. Cardiovascular: Affected extremity exhibits no peripheral edema or cyanosis, is warm, and is well perfused. Capillary refill is less than 2 seconds. Musculoskeletal: Severe left foot Charcot deformity. Integumentary (Hair, Skin) Refer to appropriate clinician wound documentation for this visit; left foot ulcer extends to subcut with base partially covered with pink granulation, remainder fibrin and slough. Maceration and callus present in the periwound area. Wound #5 Left, Plantar Foot is a chronic Rivera Grade 3 Diabetic Ulcer and has received a status of Not Healed. Subsequent wound encounter measurements are 0.5cm length x 0.2cm width x 0.2cm depth, with an area of 0.1 sq cm and a volume of 0.02 cubic cm. No tunneling has been noted. No sinus tract has been noted. No undermining has been noted. There is a small amount of serosanguineous drainage noted which has no odor. The patient reports a wound pain of level 0/10. The wound margin is callus. Wound bed has Yes epithelialization, No eschar, Yes slough, No granulation. The periwound skin moisture is normal. The periwound skin color is normal. The periwound skin exhibited: Callus. The temperature of the periwound skin is WNL. Periwound skin does not exhibit signs or symptoms of infection. Local Pulse is Palpable. Neurological: Cranial nerves grossly intact with symmetric function normal by informal observation.. ASSESSMENT Active Problems ICD-10 (Encounter Diagnosis) L97.522 - Non-pressure chronic ulcer of other part of left foot with fat layer exposed (Encounter Diagnosis) E11.621 - Type 2 diabetes mellitus with foot ulcer PROCEDURES Wound #5 Wound #5 (Diabetic Ulcer) is located on the left, plantar foot. A skin/ subcutaneous tissue level surgical debridement with a total area debrided of 0.1 sq cm was performed by Jorge Luis Max MD. Subcutaneous was removed along with devitalized tissue: callus, slough, and maceration. The following instrument(s) were used: curette. No anesthetic was required due to loss of sensation. A time out was conducted prior to the start of the procedure. A minimal amount of bleeding was controlled with n/a. The procedure was tolerated well with a pain level of 0 throughout and a pain level of 0 following the procedure. Post Debridement Measurements: 0.5cm length x 0.2cm width x 0.3cm depth; with an area of 0.1 sq cm and a volume of 0.03 cubic cm; Additional Information Muscle fascia or bone removed and sent to pathology?: No PLAN Wound Orders: Wound #5 Left, Plantar Foot Cleanser Cleanse Wound: - Normal Saline and gauze. May Shower. - Please avoid getting tap water in wound or on dressing. Cover while in shower. Topical Treatments Antibiotic/Antimicrobial Ointment/Cream. - Iodosorb ointment to wound base. Dressings Cover and secure with: - Small Covrsite (or equivalent island dressing). Change Dressing: - Every other day. Additional Orders: Off-Loading Keep weight off: - Left foot. Follow-Up Appointments Return Appointment: - - One week. Other information: If you develop fever, chills, increased pain, drainage, redness or swelling please call our office. If after hours, respond to the ER. Should you experience any significant changes in your wound(s) or have any questions regarding your home care instructions please contact the wound center @ [phone]. If after hours, contact your primary care physician or go to the hospital emergency room. Scribing Attestation I attest, as the nurse, that I scribed these orders for the physician. I've reviewed the clinician's documentation and agree with the evaluation and plan as written. In addition, the patient's ulcer demonstrates evidence of non-viable devitalized tissue which will continue to benefit from sharp debridement to help promote granulation and expedite healing. Electronic Signature(s) Signed By: Date: Jorge Luis Max MD 11/13/2017 08:53:09 Entered By: Jorge Luis Max on 11/13/2017 07:26:01
== END ==
PROVIDERS: PCP Family Medicine; Visit Provider Internal Medicine
DX: E11.621 Type 2 diabetes mellitus with foot ulcer (principal); L97.522 Non-pressure chronic ulcer of other part of left foot with fat layer exposed; L84 Corns and callosities
CPT/HCPCS: 11042

== ENCOUNTER → 2017-11-19 09:25 | Outpatient (CLI) | payer OTHER, MEDICAID, SELFPAY ==
--- NOTE | 2017-11-19 | OV.WND_ITS ---
Progress Note Details Patient Name: David Givens Patient Number: [id number] PatientPatientDate: 11/19/2017 Clinician: Krystle Grey Clinician Cosigner: Ashley Kumar Physician / Liner Machine Operator: Jorge Luis Max SUBJECTIVE Chief Complaint This information was obtained from the patient Diabetic ulcer on left foot. Allergies Vicodin (Reaction: itching), codeine (Severity: Mild, Reaction: stomach upset) HPI This information was obtained from the patient 11/19/17. Seen by Dr. Max. The patient does not report drainage or pain associated with chronic left foot diabetic ulcer since last visit. Of note, the patient's blood sugar today is 395 and despite his reported attempt recently to work with his PCP on improving his blood glucose control. 11/12/17. Seen by Dr. Max. The patient does not report drainage or pain associated with chronic left foot diabetic ulcer since last visit. 11/04/17. Seen by Dr. Max. The patient does not report drainage or pain associated with chronic left foot diabetic ulcer since last visit. 10/27/17. Seen by Dr. Max. The patient returns today with recurrence of the left plantar foot 1st MTPJ diabetic foot ulcer that was very chronic but eventually healed in May of this year. He does not report pain or drainage associated with this. He was seen in August also but did not follow up. His blood sugars continue to be elevated over 300 and he states his Lantus is being increased by his PCP. 09/04/17. Seen by Rashad Dupont PA-C. The patient reports minimal drainage from his left foot ulcer. His blood sugars continue to be >150 on most days. 08/28/17. Seen by Dr. Max. The patient only picked up his levofloxacin 3 days ago that was prescribed for the recent E. coli culture taken from the left plantar foot diabetic ulcer. He does not report adverse side effects nor significant drainage from the ulcer. Of note , his blood sugar today is again over 300 and he states he has rhubarb pie last night. He has an appointment with is PCP next week to discuss adjusting his dose of Lantus. 08/21/17. Seen by Dr. Max. The patient's wound culture taken from the recurrent left 1st MTPJ diabetic ulcer grew E. coli and Streptococcus and he's applying topical gentamicin as recommended. The nurse reports maceration and drainage on his dressing today and his blood sugar is again over 300. 08/17/17. Seen by Dr. Max. The patient returns today with recurrence of the left plantar foot 1st MTPJ diabetic foot ulcer that was very chronic but eventually healed in May of this year. He states a callus has been accumulating and it started to drain last week. He does not report pain in the foot nor swelling but states the 1st toe appeared red yesterday however this has now resolved. He uses a wheelchair for offloading and his blood sugars continue to be over 300. He has a history of poor compliance with his diabetes management and resides in assisted living. 06/02/17. Seen by Dr. Max. The patient does not report drainage or pain associated with chronic left foot diabetic ulcer since last visit. 05/26/17. Seen by Rashad Dupont PA-C. The patient does not report increased drainage from his left foot diabetic ulcer. 05/12/17. Seen by Dr. Max. The patient does not report pain nor increased drainage associated with the chronic left plantar foot diabetic ulcer. He also continues on doxycycline for chronic osteomyelitis of the left MTPJ. 05/05/17. Seen by Rashad Dupont PA-C. The patient reports that he will be moving into [facility] this Thursday. He continues to have high blood sugars and is reportedly compliant with his doxycycline (though he thought he was taking levaquin) and he does not report increased drainage. 04/28/17. Seen by Rashad Dupont PA-C. The patient reports having to walk more than normal because his truck ran out of gas this week. He has not noted any drainage from his left foot diabetic ulcer. He continues on Doxycycline for chronic osteomyelitis. His blood sugars have been >200 this week. Of note, he is wearing regular shoes and does not own shoes that are custom fitted to his foot deformities, which have been present for several years. 04/21/17. Seen by Rashad Dupont PA-C. The patient reports minimal drainage from his left 1st toe diabetic ulcer. Today he reports that he believes he was taking Levaquin recently and will be out of antibiotics today. His most recent X-ray of the left foot shows worsening chronic osteomyelitis. 04/18/17. Seen by Rashad Dupont PA-C. The patient reports decreased drainage from his chronic left 1st toe ulcer. He is nearly out of his Augmentin, which he was taking for his ulcer infection. 04/13/17. Seen Dr. Max. The patient returns to our clinic, after being seen on Thursday, due to increased swelling and erythema of the left first toe over the weekend. His first MTPJ diabetic ulcer has improved considerably over the past few weeks and he has been taking Augmentin for an associated group B strep positive wound culture taken last week. He does not report fevers or pain in the foot and his blood sugars continue to be significantly elevated. 04/10/17. Seen by Rashad Dupont PA-C. The patient reports continued redness and warmth despite taking Augmentin for his strep positive ulcer infection of the left 1st toe. He reports missing some doses of the antibiotic however. His blood sugars have been high since he ran out of insulin a few days ago. He is currently still homeless with housing pending and is able to stay in a local motel on most nights. 04/07/17. Seen by Dr. Max. The patient does not report pain nor increased drainage associated with the chronic left plantar foot diabetic ulcer. He's now on Augmentin again for cellulitis of the left 1st toe diagnosed at his last visit and his wound culture grew Group B Strep. He feels the swelling decreased and he does not report fevers, pain, or adverse side effects of the antibiotics. 04/03/17. Seen by Dr. Max. The patient does not report pain nor decreased drainage associated with the chronic left plantar foot diabetic ulcer however he does feel that his left first toe is red and swollen today. He does not report fevers nor feeling on well and has been off antibiotics were treating chronic osteomyelitis of the first MTPJ for at least a week. His blood sugars continue to be persistently elevated and despite establishing with primary care is provider months ago he has not been able to improve upon his diabetes management. 03/27/17. Seen by Dr. Max. The patient does not report increased drainage or pain associated with the chronic left plantar foot diabetic ulcer since his last visit. His wound culture from the last visit grew group B streptococcus and he's not currently on antibiotics. 03/24/17. Seen Dr. Max. The patient is here for a change of his wound VAC however the staff report increased maceration around the left plantar foot diabetic ulcer. He has now been off of antibiotics for about a week and has been treated for chronic osteomyelitis for the past few months. 03/20/17. Seen by Dr. Max. The patient states his wound VAC stopped working earlier in the week and he has not picked up his prescription of Augmentin that was to treat chronic osteomyelitis associated with the left plantar foot diabetic ulcer. Of note, his blood sugar today is again very elevated at 386. 03/11/17. Seen by Dr. Max. The patient states his wound VAC became dysfunctional 2 days ago. He continues on Augmentin for chronic osteomyelitis associated to chronic left plantar foot diabetic ulcer. He does not report pain nor significant drainage from the ulcer nor side effects from antibiotics. 03/06/17. Seen by Dr. Max. The patient does not report increased drainage or pain associated with the chronic left plantar foot diabetic ulcer since his last visit. He states he's continuing on Augmentin for underlying chronic osteomyelitis of the 1st MTPJ as recommended but will run out of antibiotics early next week. 02/27/17. Seen by Dr. Max. The patient does not report pain or increased drainage associated with chronic left plantar foot diabetic ulcer since last visit. His wound VAC was changed to a SID and he tolerated this well without any issues. He continues on Augmentin for underlying chronic osteomyelitis and his blood sugar is again elevated over 300 today despite establishing with primary care and being started on his insulin and metformin. 02/24/17. Seen by Dr. Max. The patient does not report increased pain nor drainage associated with the chronic left plantar foot diabetic ulcer. His blood sugars are again near 400 however he has seen his primary care provider and has been started on insulin and metformin which he will pickling solution maker from the pharmacy today. He continues on antibiotics also for underlying chronic osteomyelitis of the left foot. 02/20/17. Seen by Dr. Max. The patient does not report increased pain nor drainage associated with the chronic left plantar foot diabetic ulcer. Of note he is homeless and his mobility has been limited due to the winter weather recently. He is a bit noncommittal regarding adherence to his antibiotic regimen that's treating underlying chronic osteomyelitis. His blood sugars again are over 300 and he has a history of noncompliance regarding his diabetes management. 02/17/17. Seen by aRshad Dupont PA-C. The patient reports no increase in drainage from his diabetic foot ulcer of the left foot. He reports that his blood sugar is high today because he drank several slurpees from [employer] last night. 02/13/17. Seen by Dr. Max. The patient states that there has been increased drainage associated with the chronic left plantar foot diabetic ulcer over the past few days. The staff also report a significant malodor today. He admits to missing a few days worth of antibiotics as he's been feeling unwell over the past week with an upper respiratory tract infection.He is also scheduled appointment to establish with his primary care provider and of note his blood sugar is again significantly elevated at 293 today. 02/06/17. Seen by Dr. Max. The patient does not report increased drainage nor pain associated with the chronic left plantar foot diabetic ulcer since his last visit. He continues on Augmentin for chronic osteomyelitis of the foot. He also has an appointment with [facility] at the end of the month to address his homeless situation and will establish with his primary care provider in the first week in February to discuss management of his poorly controlled diabetes and other medical issues. 02/03/17. Seen by Rashad Dupont PA-C. The patient reports stable drainage from his left foot diabetic ulcer with underlying chronic osteomyelitis. He is about to finish his current prescription for osteomyelitis and notes no pain or other new symptoms related to this condition. His blood sugars continue to be >200 and he has not yet made an appointment with his PCP to address this. He says he is running out of insulin and has no refills. He continue to be homeless. 01/30/17. Seen by Dr. Max. The patient does not report increased drainage or pain associated with the chronic left plantar foot diabetic ulcer since his last visit. He continues on antibiotics for underlying chronic osteomyelitis and is her primary side effects. He also has an appointment within the next 3 weeks with his establishing primary care provider and we'll be addressing his diabetes management at that time. He also continues to reside in a motel while he is awaiting a decision on possible long-term placement in a attempt to resolve his homeless situation 01/23/17. Seen by Dr. Max. The patient is a report increased drainage from pain associated with the chronic left plantar foot diabetic ulcers since last visit. He is supposed to be continued on Augmentin for associated underlying chronic osteomyelitis however he admits that he has missed a few doses recently and he is establishing with new primary care provider. He also has a social work lecturer with him today assisting with his housing and healthcare needs. Of note, the patient admits to having a degree of cognitive dysfunction that frequently affects his ability to manage his diabetes medications, antibiotics, and maintain a stable housing situation. 01/20/17. Seen by Rashad Dupont PA-C. The patient reports continued purulent drainage from his left foot diabetic ulcer. He continues to take antibiotics for his chronic osteomyelitis irregularly and reports that his blood sugars continue to be above 200 most days. He remains homeless though states he may have a lead on some housing assistance. Due to his homelessness he walks on his foot more than is recommended. 01/16/17. Seen by Dr. Max. The patient does not report increased drainage associated with the chronic left plantar foot diabetic ulcer. The staff report however that he has missed a few doses of his antibiotics since treating underlying chronic osteomyelitis. Of note, he is homeless and has been sleeping in his car which is relevant in that the temperatures approached freezing overnight and he's not wearing socks other than the non- skid socks we've provided at the clinic. 01/09/17. Seen by Rashad Dupont PA-C. The patient reports increased drainage in his SNAP canister and he is nearly completed with his course of Cipro. His blood sugars continue to be above >150 when he takes them. 01/06/17. Seen by Rashad Dupont PA-C. The patient reports intermittently taking his antibiotics and has been unable to completely offload his ulcer due to being homeless. He reports that most blood sugars in the past few days have been over 200. 01/02/17. Seen by Dr. Max. The patient does not report increased pain or drainage associated with the chronic left plantar foot diabetic ulcer however the wound VAC leaked earlier in the week and was removed. The patient is noncommittal regarding the use of his antibiotics treating chronic osteomyelitis of the left first MTPJ also. He's not report fevers or feeling unwell is also noncommittal regarding 100% offloading that's been recommended. 12/30/16. Seen by Rashad Dupont PA-C. The patient reports intermittent compliance with his antibiotics. He admits he likes to take two tablets for the first dose and also admits to accidentally skipping doses. His foot ulcer has had increased drainage and increased odor. 12/26/16. Seen by Dr. Max. The patient is now taking ciprofloxacin to treat the recent Pseudomonas positive wound culture taken from the chronic left plantar foot diabetic ulcer. He does not report adverse side effects nor increased pain, swelling, or drainage associated with the ulcer. His blood sugars continue to be over 300 and he has not yet followed up on our recommendation to discuss this with his primary care provider to adjust his insulin. 12/23/16. Seen by Rashad Dupont PA-C. The patient reports he has still not been able to obtain his Levaquin to treat his left foot diabetic ulcer infection. Our office has continued to try and facilitate the prior authorization of this medication without success. The patient does not report fever or chills but does report that drainage has soaked through his sock. 12/19/16. Seen by Dr. Max. The patient does not report increased pain or drainage associated with the chronic left plantar foot diabetic ulcers since his last visit. He is started on levofloxacin for the new pseudomonas positive wound culture has not been able to pickling solution maker the antibiotic due to insurance prior authorization issues. 12/16/16. Seen by Dr. Max. The patient does not report increased pain or drainage associated with the chronic left plantar foot diabetic ulcer since last visit. His wound VAC became dysfunctional over the weekend and he presented to the clinic yesterday at which time it was removed. He states he continues to take his antibiotics for chronic osteomyelitis of the left first MTPJ however we are unable to confirm how many tablets he has left and is been rather noncompliant with this in the past. His blood sugars also continue to be significantly elevated. 12/12/16. Seen by Dr. Max. The patient does not report pain nor increased drainage associated with the chronic left plantar foot diabetic ulcer and he continues on antibiotics to treat associated chronic osteomyelitis of the left 1st MTPJ. 12/09/16. Seen by Dr. Max. The patient reports drainage in his shoe and sock today associated with the chronic left plantar foot diabetic ulcer. He states that the wound VAC however appear to be sealed and operating properly over the past few days. He is on amoxicillin for chronic osteomyelitis of the left first MTPJ and complains of some GI upset. 12/05/16. Seen by Dr. Max. The patient is now on amoxicillin for the recent Streptococcus positive wound culture taken as last visit. This is also treating chronic osteomyelitis of the left foot. He does not report adverse side effects nor pain or increased drainage associated with chronic left plantar foot diabetic ulcer. He is also tolerating negative pressure wound therapy without difficulty. 12/02/16. Seen by Dr. Max. The patient presented to clinic yesterday for a nurse visit following a wound vac dysfunction the previous day. He'd left the foam dressing in place however for the previous 24 hours despite being advised to remove it within 2 hours of it not working. He does not report pain at the chronic left diabetic foot ulcer site and he's been off of his antibiotics for 1-2 days (he's unsure of when he stopped taking them) and states he has a few each of the levofloxacin and Augmentin tablets that have been prescribed recently to treat underlying chronic osteomyelitis of the left foot. 11/28/16. Seen by Dr. Max. The patient does not report pain nor increased drainage associated with the chronic left plantar foot diabetic ulcer. He should've completed his course of levofloxacin by now but states that he has a couple of tablets left over. In relation to this he has also not taken his prior antibiotic prescriptions as scheduled. 11/25/16. Seen by Dr. Max. The patient does not report pain nor increased drainage associated with the chronic left plantar foot diabetic ulcer. He has nearly completed his course of levofloxacin that is treating underlying chronic osteomyelitis of the foot and he does not report adverse side effects. Also, his blood sugars are again over 300 and he states he does have an appointment next week week with his primary care provider to address his diabetes. 11/21/16. Seen by Dr. Max. The patient does not report pain in the left foot nor increased drainage associated with chronic plantar diabetic foot ulcer since his last visit. He continues on levofloxacin for chronic osteomyelitis of the left foot and does not report adverse side effects nor fevers or feeling unwell today. 11/18/16. Seen by Dr. Max. The patient does not report pain in the left foot nor increased drainage associated with chronic plantar diabetic foot ulcer since his last visit. He found the levofloxacin that he lost and restarted this over the weekend. He does not report adverse side effects nor fevers or feeling unwell today. 11/14/16. Seen by Dr. Max. The patient's left foot wound VAC fell off yesterday. He also states that he lost his levofloxacin that's treating chronic osteomyelitis of the left foot but he has started taking the Augmentin that he had leftover from his last prescription. He does not report increased drainage associated with a chronic left plantar foot diabetic ulcer however does report some pain at the site. 11/11/16. Seen by Dr. Max. The patient does not report increased drainage associated with a chronic left plantar foot diabetic ulcer and he continues on levofloxacin for underlying chronic osteomyelitis of the left first MTPJ. He does not reporting adverse side effects of antibiotics, fevers, or feeling unwell. His blood sugars continue to be significantly elevated and he is noncommittal regarding checking them and taking his insulin as prescribed. He also has not seen his primary care provider in the last few months as we recommended. 11/07/16. Seen by Dr. Max. The patient is now on levofloxacin and reports some nausea since starting this. He does not report significant drainage or pain associated with chronic left plantar foot diabetic ulcer however since his last visit. 11/04/16. Seen by Dr. Max. The patient states that he completed his Augmentin 2 days ago and he does not report increased drainage or pain associated with the chronic left plantar foot diabetic ulcer nor the underlying chronic osteomyelitis. His recent wound culture grew Klebsiella which is sensitive to Augmentin and he does not report fevers, feeling unwell, or adverse side effects to the antibiotics. 10/31/16. Seen by Dr. Max. The patient's wound VAC began leaking soon after his last visit and was removed at that time. He continues on Augmentin for chronic osteomyelitis associated with the chronic left plantar foot diabetic ulcer and feels that the pain has resolved over the past week. 10/28/16. Seen by Dr. Max. The patient states that the wound VAC started leaking yesterday he presented to the clinic and it was removed with the left plantar foot ulcer filled with alginate. He states he continues to take his antibiotics for chronic osteomyelitis of the foot and does not report adverse side effects. His blood sugars continue to be consistently over 200 however have improved somewhat as they were typically over 300 previously. He does not report fevers, pain in the foot, nor feeling unwell in general. 10/24/16. Seen by Dr. Max. The patient states he has restarted taking his antibiotics as prescribed and he does not report significant drainage associated with chronic left foot diabetic ulcer since his last visit. He also reports the pain has improved and he is not reporting fevers or feeling unwell. He is taking antibiotics for chronic osteomyelitis associated with the ulcer. 10/21/16. Seen by Dr. Max. The patient is not very engaging today and he is noncommittal regarding whether he is taking his antibiotics as prescribed. His recent wound culture grew Klebsiella sensitive to Augmentin however he states that his left foot pain associated with the diabetic ulcer and chronic osteomyelitis has increased over the past week. He does not report fevers however nor feeling unwell and his negative pressure wound therapy was held at last visit due to deterioration of the ulcer and concern for change of infection. 10/17/16. Seen by Dr. Max. The patient reports some pain associated with the chronic left plantar foot diabetic ulcer since his last visit staff report increased maceration in the nunu-ulcer area. He does not report fevers however states that he's not been taking his antibiotic entirely as prescribed. His blood sugars are over 300 again today he states he has been offloading the foot as recommended. 10/14/16. Seen by Dr. Max. The patient reports being more active on his feet the past few days despite wearing a snap negative pressure wound dressing. Does not report increased drainage associated with the left plantar foot diabetic ulcer and continues on Augmentin for chronic osteomyelitis of the foot. His blood sugars are improving somewhat into the 200s and he states he is checking these and taking insulin as recommended. He has not yet followed up with his primary care provider as recommended however in terms of his diabetes management. 10/10/16. Seen by Dr. Max. The patient has restarted his Augmentin as recommended that's treating chronic osteomyelitis of the left foot. He does not report increased drainage associated with the left plantar foot diabetic ulcer since his last visit. His blood sugars continue to be significantly elevated and he has not yet scheduled and appointment with his primary care provider to discuss this. 10/07/16. Seen by Dr. Max. The patient does not report increased drainage associated with the chronic left foot diabetic ulcer. He continues on negative pressure wound therapy and states he forgot to pickling solution maker his antibiotics that are treating chronic osteomyelitis in the foot. His blood sugars continue to be significantly elevated and is noncommittal regarding checking his blood sugars and taking his insulin routinely. 10/03/16. Seen by Dr. Max. The patient states he is nearly out of antibiotics that have been treating chronic osteomyelitis the left foot. He does not report any problems regarding the overlying diabetic foot ulcer nor negative pressure wound therapy. Also, his blood sugars 381 today and has been significantly elevated for months. This is despite his recent statement that he's been checking blood sugars and taking his insulin routinely. 09/30/16. Seen by Dr. Max. The patient does not report significant drainage or other acute issues associated with the chronic left plantar foot diabetic ulcers since his last visit. He continues on antibiotics for underlying osteomyelitis of the foot and does not report fevers or other side effects of antibiotics. He states his blood sugars are improving and are in the 200s this morning and that he's been checking them and taking his insulin as recommended. 09/26/16. Seen by Dr. Max. The patient does not report pain nor increased drainage associated with chronic left plantar foot diabetic ulcer and underlying chronic osteomyelitis since his last visit. Of note, he admits to not necessarily taking all of his antibiotics as recommended and his recent culture grew Klebsiella for which he is to be taken Augmentin. His blood sugars also continue to be elevated over 300 despite the fact he states he's been checking them taking his insulin. 09/23/16. Seen by Dr. Max. The patient does not report increased drainage or other acute changes regarding his chronic left plantar foot diabetic ulcer. He is checking his blood sugars and taking insulin however states that they still are often times over 300. He continues on Augmentin for underlying osteomyelitis of the foot and does not report adverse side effects. 09/21/16. Seen by Rashad Dupont PA-C. The patient reports that he continues to have high blood sugars despite taking 40 units twice daily of insulin. He reports occasionally missing a dose but tries to comply with his orders. He believes he has a follow up appointment soon with his PCP regarding diabetes but is unsure of the date. 09/15/16. Seen by Rashad Dupont PA-C. The patient reports continued difficulty sleeping due to difficulty breathing while supine, though he feels this is somewhat improved as he is reducing his fluid intake. He reports blood sugars consistently above 150 and believes he has an appointment with his PCP to review his diabetic regimen soon. He continues on augmentin for his osteomyelitis and his drainage from his left foot ulcer has been stable. 09/09/16. Seen by Dr. Max. The patient is not very engaging today however does not report any new problems regarding the chronic left plantar foot diabetic ulcer nor the wound VAC. He states he continues to take Augmentin as recommended for associated chronic osteomyelitis of the left first MTPJ and he is offloading as much as possible. He states he is also checking his blood sugars and taking his insulin as recommended however he has been quite noncompliant with this in the past. 09/05/16. Seen by Dr. Max. The patient does not report pain or increased drainage associated with the chronic left plantar foot diabetic ulcer since his last visit. He states he continues on Augmentin for osteomyelitis of the foot and does not report adverse side effects although he's not had a recent Rx written. His recent wound culture grew Klebsiella and group B Strep. 09/02/16. Seen by Rashad Dupont PA-C. The patient reports continued thirst and continued intake of a large amount of water. He reports that it is very difficult for him to resist drinking large amounts of fluids. His blood sugars continue to be over 200 and his chronic left foot diabetic ulcer has had stable drainage. He continues on oral antibiotics for his chronic osteomyelitis of the left foot. 08/29/16. Seen by Dr. Max. The patient does not report pain or increased drainage associated with the chronic left plantar foot diabetic ulcer since his last visit. He continues on Augmentin for osteomyelitis of the foot and does not report adverse side effects. His shortness of breath has improved as has his leg swelling and his recent ECHO showed only some diastolic dysfunction. He does report being very thirsty and drinking over a gallon of water and flavored drinks daily. His blood sugars have also been very poorly controlled over the past few months. 08/22/16. Seen by Dr. Max. The patient does not report pain or increased drainage associated with the chronic left plantar foot diabetic ulcer since his last visit although he's not very engaging today. He continues on Augmentin for osteomyelitis of the foot and does not report adverse side effects. Of note, his shortness of breath has improved as has his leg swelling and his ECHO showed only some diastolic dysfunction. He's not yet discussed this with is PCP however. 08/14/16. Seen by Dr. Max. The patient does not report pain or increased drainage associated with the chronic left plantar foot diabetic ulcer since his last visit. He continues on antibiotics for osteomyelitis of the foot and does not report adverse side effects. 08/19/16. Seen by Rashad Dupont PA-C. The patient reports continued high blood sugars, with all readings so far above 200. He reports stable drainage from her diabetic foot ulcer with underlying osteomyelitis and he has an upcoming echocardiogram to assess his orthopnea, which he reports is somewhat improved recently. He continues on augmentin for his underlying osteomyelitis. 08/15/16. Seen by Dr. Max. The patient does not report pain or significant drainage associated with chronic left plantar foot diabetic ulcer since his last visit. He is tolerating negative pressure wound therapy without difficulty and continues on antibiotics for acute osteomyelitis of the left first metatarsal. His blood sugars are over 400 today and he's non- committal regarding adherence to his insulin regimen. 08/12/16. Seen by Dr. Max. The patient reports that the SNAP wound VAC has not been working for the past day or so however he did not take the dressing off as recommended. The staff reports significant maceration associated with the chronic left plantar foot diabetic ulcer and he continues on antibiotics for underlying osteomyelitis of the first metatarsal. He is not checking blood sugars routinely and they continued to be significantly elevated over 200. He does not report fevers, pain in the foot, or feeling unwell. 08/07/16. Seen by Dr. Max. The patient does not report pain or significant drainage associated with chronic left plantar foot diabetic ulcer since his last visit. He is tolerating negative pressure wound therapy without difficulty and continues on antibiotics for acute osteomyelitis of the left first metatarsal. 08/04/16. Seen by Rashad Dupont PA-C. The patient reports continued difficulty sleeping due to shortness of breath when supine. He reports continued drainage from his Rivera grade III diabetic ulcer of the left foot. He continues to have very high blood sugars, with most readings above 200. 07/31/16. The patient does not report pain or significant drainage associated with chronic left plantar foot diabetic ulcer since his last visit. He is tolerating negative pressure wound therapy without difficulty and continues on antibiotics for acute osteomyelitis of the left first metatarsal. 07/28/16. Seen by Rashad Dupont PA-C. The patient reports continued drainage from his left foot Rivera grade III diabetic ulcer with underlying osteomyelitis, confirmed again recently on MRI. His blood sugars continue to be mostly above 250. He continues on antibiotics (augmentin until 08/08/16) to treat the chronic infection of this ulcer and to treat his osteomyelitis. 07/25/16. Seen by Dr. Max. The patient does not report pain or significant drainage associated with chronic left plantar foot diabetic ulcer since his last visit. His wound culture from the last visit grew Enterococcus and Strep group B. He is tolerating negative pressure wound therapy without difficulty and continues on antibiotics for acute osteomyelitis of the left first metatarsal. He does not check his blood sugars regularly and is noncommittal regarding taking his insulin as prescribed. He is also not wearing his offloading shoe as recommended. He does not report adverse side effects from the antibiotics, fevers, or feeling unwell in general. 07/23/16. Seen by Dr. Max. The patient does not report increased drainage or pain associated with the chronic left plantar foot diabetic ulcer and he's tolerated the wound VAC over the past few days without any difficulty. He continues on antibiotics for acute osteomyelitis of the left first metatarsal and does not report adverse side effects. He was seen by his primary care provider to establish care and specifically to address his diabetes and some recent shortness of breath which she states is now resolved. He states today that his medications have not been adjusted and he will see his primary care provider in 2 weeks again. His blood sugars continue to be elevated over 300 consistently. 07/21/16. Seen by Rashad Dupont PA-C. The patient reports severe shortness of breath with exertion and when supine, which begain 3 days ago and has worsened. The patient reports fevers and chills but denies chest pain. He has noted increased lower extremity edema during this time as well. He reports that he is unable to sleep because of the shortness of breath, but occasionally passes out from exhaustion. 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 07/17/16. Seen by Dr. Max. The patient continues on Bactrim for osteomyelitis of the left foot and he continues with negative pressure wound therapy to treat the overlying diabetic ulcer. His blood sugars continue to be significantly elevated despite increase his Lantus to 30 units daily. He will establish with his primary care provider early next week. 07/14/16. Seen by Dr. Max. The patient continues on Bactrim for osteomyelitis of the left first metatarsaland has tolerated the wound VAC treating the overlying diabetic ulcer without any issues. His blood sugar is 391 today and his Lantus has recently been increased to 20 units daily. He does not report fevers, feeling unwell, or adverse side effects from the Bactrim. 06/30/16. Seen by Dr. Max. The patient continues on antibiotics for his chronic and infected left plantar foot diabetic ulcer. His MRI confirms osteomyelitis of the head of the first metatarsal. He is tolerating negative pressure wound therapy however remains somewhat noncompliant in terms of removal of the wound VAC if it's not working. He is not routinely checking his blood sugars however but states he is taking is 10 units of Lantus as prescribed. He will establish with a primary care provider in about 2 weeks and he does not report fevers or feeling unwell in general. 07/07/16. Seen by Rashad Dupont PA-C. The patient reports that he completed his MRI examination of his left foot today, just before this appointment. He reports continued drainage from his chronic diabetic foot ulcer of the left foot. Due to a labelling error, the wound cultures taken at his last visit were not processed. 07/03/16. Seen by Dr. Max. The patient disconnected his wound vac 2 days ago however did not remove the dressing as instructed. He's also not checking his blood sugars or taking insulin as prescribed and his blood sugars continue to be frequently elevated over 300 while in the clinic. He does not report pain or increased drainage associated with the chronic left foot diabetic ulcer, nor fevers or feeling unwell, since his last visit. 06/30/16. Seen by Rashad Dupont PA-C. The patient reports no increase in drainage from his chronic left foot diabetic ulcer. He reports better compliance with his insulin and glucose checks and reports that many of his sugars are still above 300. 06/26/16. Seen by Dr. Max. The patient does not report any problems regarding his wound VAC and he continues on doxycycline without reporting adverse side effects for the chronic infection of the left plantar foot diabetic ulcer. He's not routinely checking his blood sugars nor taking his insulin as recently prescribed and he's to establish with his new PCP within one month. 06/23/16. Seen by Rashad Dupont PA-C. The patient reports high blood sugars in the past few days despite being prescribed insulin by Dr. Max. The patient admits to forgetting more than 1/2 of his insulin doses since he was prescribed them. His left plantar foot diabetic ulcer has had stable and continued drainage.. 06/20/16. Seen by Dr. Max. The patient does not report any problems regarding his wound VAC and he continues on antibiotics for the chronic infection of the left plantar foot diabetic ulcer. He started insulin recently and states his blood sugars are between 200 and 300 and he is offloading with a wheelchair as much as possible. 06/18/16. Seen by Dr. Max. The patient does not report problems regarding the negative pressure dressing that was placed 2 days ago to treat the chronic left plantar foot diabetic ulcer. He does not report pain in the foot nor increased drainage and he continues on doxycycline for a chronic wound infection. He's also started taking his long acting insulin as prescribed last week and states his appointment to establish care with a new PCP is in about a month. His blood sugars continue to be elevated over 200 however. 06/16/16. Seen by Rashad Dupont PA-C. The patient reports continued blood sugars above 300 and continued drainage from his left plantar foot diabetic ulcer. 06/09/16. Seen by Rashad Dupont PA-C. The patient reports that he has been leaving his leg dependant when he has been sleeping and is noted to have experienced weight gain since his last appointment. He continues to have very high blood sugars and now has an appointment with primary care to establish care. 06/06/16. Seen by Dr. Max. The patient does not report pain nor significant drainage associated with the chronic left foot diabetic ulcer over the past week. Also, his blood sugars are again over 200 today. 05/29/16. Seen by Dr. Max. The patient does not report pain nor significant drainage associated with the chronic left foot diabetic ulcer over the past week. Although he told the staff that he's discussed his diabetes management with a PCP he tells me has not yet re- established with a PCP as we've recommended so has not been checking blood sugars nor taking diabetes medication. 05/22/16. Seen by Dr. Max. The patient does not report pain nor significant drainage associated with the chronic left foot diabetic ulcer over the past week. 05/19/16. Seen by Rashad Dupont PA-C. The patient reports increased drainage from his chronic left foot diabetic ulcer since his last evaluation. The patient is not wearing his [place] boot to offload his ulcer and he reports very high blood sugars in the previous week. The patient continues to be homeless and reports that he was focused on staying warm during the past few days. 05/12/16. Seen by Rashad Dupont PA-C. The patient reports intermittent compliance with his levaquin usage and has not seen [facility] yet for assessment and fitting of his [place] boot. In addition he reports a new ulcer on his left 5th toe which began a couple days ago. 05/08/16. Seen by Dr. Max. The patient does not report significant drainage nor pain associated with the chronic left plantar foot diabetic ulcer. He continues on antibiotics for an associated wound infection and does not report adverse side effects.He is also not checking his blood sugars routinely and is currently homeless and living in his car. 05/05/16. Seen by Rashad Dupont PA-C. The patient returns to our clinic after spending 12 weeks at [facility]. He reports that his left plantar foot diabetic ulcer never fully healed. He also reports that he has a [place] boot that he thinks still fits but is not wearing it. Currently he is on Bactrim and Cipro for an ulcer infection and reports missing doses frequently of these medications. 07/17/[address] Max. The patient does not report increased drainage, swelling, or erythema associated with his left plantar foot diabetic ulcer. He continues to offload the foot with a cane and wheelchair and is compliant with his antibiotic and diabetes regimens without reporting adverse side effects. 07/13/14 The patient's recent wound culture grew MRSA sensitive to doxycycline. He does not report increased pain, swelling, or drainage associated with the left plantar foot diabetic ulcer nor does he report fever, chills, or shakes as he has previously. He's compliant with his antibiotic and diabetes medications and states his blood sugars are around 150- 200. He's also met with his new PCP in the past week to establish care. 07/06/14 The patient does not report pain in either foot nor fever or chills. He states he's been compliant with his doxycycline and ciprofloxacin regimen as well as his diabetes regimen. He's not yet established with a PCP but has an appointment in October with a provider in [place]. He also states he does not leave his car very often and so has not had a need to use the wheelchair for offloading. 07/03/14 The patient reports that he is taking his antibiotics regularly now and does not report shakes fever or chills. He would prefer a PCP in [place] to one in [place] if he is not able to see someone in town. 06/29/14 The patient states he's been mostly compliant with his antibiotics that now includes doxycycline plus cipro. He feels the left foot swelling and erythema are beginning to improve. He's also taking a lower dose of metformin along with his glipizide and he does not report 'shakes' as he did at the last visit. 06/26/14 The patient states he experienced some intermittent 'shakes' a couple of day ago and felt it was do to his metformin so he stopped taking it. He does not report fever, sweats, or chills however. He says he's been taking cipro as prescribed but he feels the left foot swelling and erythema are slowly progressing. He also admits to not using his wheelchair or can as recommended and walking a good bit over the weekend. 06/22/14 The patient's new to our clinic but was seen twice on consult as an inpatient over the past month. He's a homeless gentleman with a large left 1st MTPJ plantar ulcer and a smaller right lateral 5th MT ulcer. He's now on a 6 week course of ciprofloxacin based on his MRI that showed possible early osteomyelitis in the left 1st MTPJ sesmoid bone. Deep wound cultures from 06/16/14 grew Group A Streptococcs. He feels the swelling and erythema have improved in the left forefoot as has the drainage. He also states his subjective fevers have resolved. He's a newly diagnosed diabetic and is now on Metformin and Glipizide with an A1c 10.2 on 05/17/14 and he states he's compliant with his medication regimen. His arterial doppler showed only mild atherosclerotic disease in the right SFA. Of note, he's not yet established with a PCP at the [facility] and he states he use a wheelchair for mobilizing except for very short walks when he uses a cane to help offload the left foot. Past Medical History This information was obtained from the patient Patient has a medical history of: Diabetes, type II (A1c > 14 05/23/16; 10.2 06/06/14) Osteomyelitis (left 1st MTPJ sesmoid) Homeless Diabetic foot ulcer - 06/06/2014 (left 1st MTPJ; Rivera grade III with osteomyelitis; MRSA positive deep wound culture 07/11/14) Diabetic foot ulcer - 06/22/2014 (right 5th MT; Rivera grade I) Complaints and Symptoms This information was obtained from the patient Patient complains of: General Notes: I have reviewed and concur with the Review of Systems and Past Family Social History documents completed by the clinician, I have reviewed and concur with the Wound Assessment document completed by the clinician Integumentary (Hair/Skin/Nails): Open Sore Musculoskeletal: Assistive Devices Neurological: Abnormal Gait, Loss of Protective Sensation Prior Wound History: Drainage, Erythema, Malodor Psychiatric: Depression Patient denies complaints or symptoms related to: Cardiovascular (Central): Irregular heart beat Cardiovascular (Central/Peripheral): Lower extremity (leg) resting pain, Lower extremity (leg) swelling Cardiovascular (Peripheral) Constitutional Symptoms (General Health): Chills, Fever, Marked Weight Change Ear/Nose/Mouth/Throat: Hearing Loss / Aid Gastrointestinal (GI): Nausea / Vomiting, Stomach/abdominal pain Hematologic/Lymphatic: Bleeding / Clotting Disorders, Bleeding Tendency Musculoskeletal: Joint Swelling, Muscle Weakness Prior Wound History: Bleeding, Pain Psychiatric: Memory Loss Respiratory: Oxygen Use, Shortness of Breath OBJECTIVE Constitutional Vital signs reviewed and noted. Dishelved. Height/Length: 73 in (185.42 cm), Weight: 248.3 lbs (112.86 kgs), BMI: 32.8, Temperature: 97.6 ?F (36.44 ?C), Pulse: 100 bpm, Respiratory Rate: 18 breaths/min, Blood Pressure: 121/80 mmHg, Capillary Blood Glucose: 395 mg/dl, Pulse Oximetry: 92 %. Vital Signs Notes: Glucose taken in clinic. Cardiovascular: Affected extremity exhibits no peripheral edema or cyanosis, is warm, and is well perfused. Capillary refill is less than 2 seconds. Musculoskeletal: Severe left foot Charcot deformity. Integumentary (Hair, Skin) No periwound erythema, warmth, or significant drainage. No periwound rashes appreciated or noted otherwise.. Refer to appropriate clinician wound documentation for this visit; left foot ulcer extends to subcut with base partially covered with pink granulation, remainder fibrin and slough. Significant amount of callus in the periulcer area. Wound #5 Left, Plantar Foot is a chronic Rivera Grade 3 Diabetic Ulcer and has received a status of Not Healed. Subsequent wound encounter measurements are 0.2cm length x 0.2cm width x 0.1cm depth, with an area of 0.04 sq cm and a volume of 0.004 cubic cm. No tunneling has been noted. No sinus tract has been noted. No undermining has been noted. There is a small amount of sanguineous drainage noted which has no odor. The patient reports a wound pain of level 0/10. The wound margin is callus. Wound bed has Yes epithelialization, No eschar, No slough, Yes bright red, firm granulation. The periwound skin moisture is normal. The periwound skin color is normal. The periwound skin exhibited: Callus. The periwound skin did not exhibit: Brawny Induration, Edema, Excoriation, Induration, Crepitus, Fluctuance, Friable, Rash. The temperature of the periwound skin is WNL. Periwound skin does not exhibit signs or symptoms of infection. Local Pulse is Palpable. Neurological: Cranial nerves grossly intact with symmetric function normal by informal observation.. ASSESSMENT Active Problems ICD-10 (Encounter Diagnosis) L97.522 - Non-pressure chronic ulcer of other part of left foot with fat layer exposed (Encounter Diagnosis) E11.621 - Type 2 diabetes mellitus with foot ulcer (Encounter Diagnosis) E11.65 - Type 2 diabetes mellitus with hyperglycemia PROCEDURES Wound #5 Wound #5 (Diabetic Ulcer) is located on the left, plantar foot. A skin/ subcutaneous tissue level surgical debridement with a total area debrided of 0.15 sq cm was performed by Jorge Luis Max MD. Subcutaneous was removed along with devitalized tissue: callus, exudate , and slough. The following instrument(s) were used: curette. Pain control was achieved using 4% Lido. A time out was conducted prior to the start of the procedure. A moderate amount of bleeding was controlled with pressure. The procedure was tolerated well with a pain level of 0 throughout and a pain level of 0 following the procedure. Post Debridement Measurements: 0.5cm length x 0.3cm width x 0.2cm depth; with an area of 0.15 sq cm and a volume of 0.03 cubic cm; Additional Information Muscle fascia or bone removed and sent to pathology?: No PLAN Wound Orders: Wound #5 Left, Plantar Foot Cleanser Cleanse Wound: - Normal Saline and gauze. May Shower. - Please avoid getting tap water in wound or on dressing. Cover while in shower. Topical Treatments Antibiotic/Antimicrobial Ointment/Cream. - Iodosorb ointment to wound base. Dressings Cover and secure with: - Small Covrsite (or equivalent island dressing). Change Dressing: - Every other day. Additional Orders: Off-Loading Keep weight off: - Left foot. Follow-Up Appointments Return Appointment: - - One week. Other information: If you develop fever, chills, increased pain, drainage, redness or swelling please call our office. If after hours, respond to the ER. Should you experience any significant changes in your wound(s) or have any questions regarding your home care instructions please contact the wound center @ [phone]. If after hours, contact your primary care physician or go to the hospital emergency room. Scribing Attestation I attest, as the nurse, that I scribed these orders for the physician. I've reviewed the clinician's documentation and agree with the evaluation and plan as written. In addition, the patient's ulcer demonstrates evidence of non-viable devitalized tissue which will continue to benefit from sharp debridement to help promote granulation and expedite healing. Also, we'll continue to encourage the patient to work with his PCP on improving his diabetes management. Electronic Signature(s) Signed By: Date: Jorge Luis Max MD 11/20/2017 09:41:06 Entered By: Jorge Luis Max on 11/20/2017 09:37:14
== END ==
PROVIDERS: PCP Family Medicine; Visit Provider Internal Medicine
DX: E11.621 Type 2 diabetes mellitus with foot ulcer (principal); E11.65 Type 2 diabetes mellitus with hyperglycemia; L97.522 Non-pressure chronic ulcer of other part of left foot with fat layer exposed
CPT/HCPCS: 11042

== ENCOUNTER → 2017-11-26 09:22 | Outpatient (CLI) | payer OTHER, MEDICAID, SELFPAY | PROVIDERS: PCP Family Medicine; Visit Provider Internal Medicine | DX: E11.621 Type 2 diabetes mellitus with foot ulcer (principal); L97.522 Non-pressure chronic ulcer of other part of left foot with fat layer exposed; M21.6X2 Other acquired deformities of left foot | CPT/HCPCS: 11042 ==

== ENCOUNTER → 2017-12-01 09:16 | Outpatient (CLI) | payer OTHER, MEDICAID, SELFPAY | PROVIDERS: PCP Family Medicine; Visit Provider Internal Medicine | DX: L97.522 Non-pressure chronic ulcer of other part of left foot with fat layer exposed (principal); E11.621 Type 2 diabetes mellitus with foot ulcer; L97.512 Non-pressure chronic ulcer of other part of right foot with fat layer exposed; E11.65 Type 2 diabetes mellitus with hyperglycemia; L08.9 Local infection of the skin and subcutaneous tissue, unspecified | CPT/HCPCS: 11042; 87070; 87077; 87186; 87205 ==

== ENCOUNTER → 2017-12-09 09:15 | Outpatient (CLI) | payer OTHER, MEDICAID, SELFPAY ==
--- NOTE | 2017-12-09 | OV.WND_ITS ---
Progress Note Details Patient Name: David Givens Patient Number: [id number] PatientPatientDate: 12/09/2017 Clinician: Verito Rocha Clinician Cosigner: Krystle Grey Physician / Instruments Sales Representative: Jorge Luis Max SUBJECTIVE Chief Complaint This information was obtained from the patient Diabetic ulcer on left foot. Allergies Vicodin (Reaction: itching), codeine (Severity: Mild, Reaction: stomach upset) HPI This information was obtained from the patient 12/09/17. Seen by Dr. Max. Mansoor. The patient does not report drainage or pain associated with chronic left foot diabetic ulcer nor the lateral right 5th toe since his last visit. He's now on levofloxacin for the E. coli positive wound culture taken from the left foot ulcer without reporting adverse side effects. His blood sugars continue to be elevated at 245 today and he's not had regular follow up with his PCP regarding this issue despite being encouraged to on many occasions. 12/01/17. Seen by Dr. Max. Mansoor. The patient does not report drainage or pain associated with chronic left foot diabetic ulcer since last visit however he reports a new ulcer over the lateral right 5th toe. He's unsure of how long this has been present though and does not report pain or significant drainage. He's also scheduled to see his PCP within the next two weeks to discuss his chronically elevated blood sugars. 11/26/17. Seen by Dr. Max. The patient does not report drainage or pain associated with chronic left foot diabetic ulcer since last visit. He's wearing his regular street shoes and uses a wheelchair much of the time to offload the foot. 11/19/17. Seen by Dr. Max. The patient does not report drainage or pain associated with chronic left foot diabetic ulcer since last visit. Of note, the patient's blood sugar today is 395 and despite his reported attempt recently to work with his PCP on improving his blood glucose control. 11/12/17. Seen by Dr. Max. The patient does not report drainage or pain associated with chronic left foot diabetic ulcer since last visit. 11/04/17. Seen by Dr. Max. The patient does not report drainage or pain associated with chronic left foot diabetic ulcer since last visit. 10/27/17. Seen by Dr. Max. The patient returns today with recurrence of the left plantar foot 1st MTPJ diabetic foot ulcer that was very chronic but eventually healed in May of this year. He does not report pain or drainage associated with this. He was seen in August also but did not follow up. His blood sugars continue to be elevated over 300 and he states his Lantus is being increased by his PCP. 09/04/17. Seen by Rashad Dupont PA-C. The patient reports minimal drainage from his left foot ulcer. His blood sugars continue to be >150 on most days. 08/28/17. Seen by Dr. Max. The patient only picked up his levofloxacin 3 days ago that was prescribed for the recent E. coli culture taken from the left plantar foot diabetic ulcer. He does not report adverse side effects nor significant drainage from the ulcer. Of note , his blood sugar today is again over 300 and he states he has rhubarb pie last night. He has an appointment with is PCP next week to discuss adjusting his dose of Lantus. 08/21/17. Seen by Dr. Max. The patient's wound culture taken from the recurrent left 1st MTPJ diabetic ulcer grew E. coli and Streptococcus and he's applying topical gentamicin as recommended. The nurse reports maceration and drainage on his dressing today and his blood sugar is again over 300. 08/17/17. Seen by Dr. Max. The patient returns today with recurrence of the left plantar foot 1st MTPJ diabetic foot ulcer that was very chronic but eventually healed in May of this year. He states a callus has been accumulating and it started to drain last week. He does not report pain in the foot nor swelling but states the 1st toe appeared red yesterday however this has now resolved. He uses a wheelchair for offloading and his blood sugars continue to be over 300. He has a history of poor compliance with his diabetes management and resides in assisted living. 06/02/17. Seen by Dr. Max. The patient does not report drainage or pain associated with chronic left foot diabetic ulcer since last visit. 05/26/17. Seen by Rashad Dupont PA-C. The patient does not report increased drainage from his left foot diabetic ulcer. 05/12/17. Seen by Dr. Max. The patient does not report pain nor increased drainage associated with the chronic left plantar foot diabetic ulcer. He also continues on doxycycline for chronic osteomyelitis of the left MTPJ. 05/05/17. Seen by Rashad Dupont PA-C. The patient reports that he will be moving into [facility] this Thursday. He continues to have high blood sugars and is reportedly compliant with his doxycycline (though he thought he was taking levaquin) and he does not report increased drainage. 04/28/17. Seen by Rashad Dupont PA-C. The patient reports having to walk more than normal because his truck ran out of gas this week. He has not noted any drainage from his left foot diabetic ulcer. He continues on Doxycycline for chronic osteomyelitis. His blood sugars have been >200 this week. Of note, he is wearing regular shoes and does not own shoes that are custom fitted to his foot deformities, which have been present for several years. 04/21/17. Seen by Rashad Dupont PA-C. The patient reports minimal drainage from his left 1st toe diabetic ulcer. Today he reports that he believes he was taking Levaquin recently and will be out of antibiotics today. His most recent X-ray of the left foot shows worsening chronic osteomyelitis. 04/18/17. Seen by Rashad Dupont PA-C. The patient reports decreased drainage from his chronic left 1st toe ulcer. He is nearly out of his Augmentin, which he was taking for his ulcer infection. 04/13/17. Seen Dr. Max. The patient returns to our clinic, after being seen on Thursday, due to increased swelling and erythema of the left first toe over the weekend. His first MTPJ diabetic ulcer has improved considerably over the past few weeks and he has been taking Augmentin for an associated group B strep positive wound culture taken last week. He does not report fevers or pain in the foot and his blood sugars continue to be significantly elevated. 04/10/17. Seen by Rashad Dupont PA-C. The patient reports continued redness and warmth despite taking Augmentin for his strep positive ulcer infection of the left 1st toe. He reports missing some doses of the antibiotic however. His blood sugars have been high since he ran out of insulin a few days ago. He is currently still homeless with housing pending and is able to stay in a local motel on most nights. 04/07/17. Seen by Dr. Max. The patient does not report pain nor increased drainage associated with the chronic left plantar foot diabetic ulcer. He's now on Augmentin again for cellulitis of the left 1st toe diagnosed at his last visit and his wound culture grew Group B Strep. He feels the swelling decreased and he does not report fevers, pain, or adverse side effects of the antibiotics. 04/03/17. Seen by Dr. Max. The patient does not report pain nor decreased drainage associated with the chronic left plantar foot diabetic ulcer however he does feel that his left first toe is red and swollen today. He does not report fevers nor feeling on well and has been off antibiotics were treating chronic osteomyelitis of the first MTPJ for at least a week. His blood sugars continue to be persistently elevated and despite establishing with primary care is provider months ago he has not been able to improve upon his diabetes management. 03/27/17. Seen by Dr. Max. The patient does not report increased drainage or pain associated with the chronic left plantar foot diabetic ulcer since his last visit. His wound culture from the last visit grew group B streptococcus and he's not currently on antibiotics. 03/24/17. Seen Dr. Max. The patient is here for a change of his wound VAC however the staff report increased maceration around the left plantar foot diabetic ulcer. He has now been off of antibiotics for about a week and has been treated for chronic osteomyelitis for the past few months. 03/20/17. Seen by Dr. Max. The patient states his wound VAC stopped working earlier in the week and he has not picked up his prescription of Augmentin that was to treat chronic osteomyelitis associated with the left plantar foot diabetic ulcer. Of note, his blood sugar today is again very elevated at 386. 03/11/17. Seen by Dr. Max. The patient states his wound VAC became dysfunctional 2 days ago. He continues on Augmentin for chronic osteomyelitis associated to chronic left plantar foot diabetic ulcer. He does not report pain nor significant drainage from the ulcer nor side effects from antibiotics. 03/06/17. Seen by Dr. Max. The patient does not report increased drainage or pain associated with the chronic left plantar foot diabetic ulcer since his last visit. He states he's continuing on Augmentin for underlying chronic osteomyelitis of the 1st MTPJ as recommended but will run out of antibiotics early next week. 02/27/17. Seen by Dr. Max. The patient does not report pain or increased drainage associated with chronic left plantar foot diabetic ulcer since last visit. His wound VAC was changed to a SID and he tolerated this well without any issues. He continues on Augmentin for underlying chronic osteomyelitis and his blood sugar is again elevated over 300 today despite establishing with primary care and being started on his insulin and metformin. 02/24/17. Seen by Dr. Max. The patient does not report increased pain nor drainage associated with the chronic left plantar foot diabetic ulcer. His blood sugars are again near 400 however he has seen his primary care provider and has been started on insulin and metformin which he will pepper picker from the pharmacy today. He continues on antibiotics also for underlying chronic osteomyelitis of the left foot. 02/20/17. Seen by Dr. Max. The patient does not report increased pain nor drainage associated with the chronic left plantar foot diabetic ulcer. Of note he is homeless and his mobility has been limited due to the winter weather recently. He is a bit noncommittal regarding adherence to his antibiotic regimen that's treating underlying chronic osteomyelitis. His blood sugars again are over 300 and he has a history of noncompliance regarding his diabetes management. 02/17/17. Seen by Rashad Dupont PA-C. The patient reports no increase in drainage from his diabetic foot ulcer of the left foot. He reports that his blood sugar is high today because he drank several slurpees from [employer] last night. 02/13/17. Seen by Dr. Max. The patient states that there has been increased drainage associated with the chronic left plantar foot diabetic ulcer over the past few days. The staff also report a significant malodor today. He admits to missing a few days worth of antibiotics as he's been feeling unwell over the past week with an upper respiratory tract infection.He is also scheduled appointment to establish with his primary care provider and of note his blood sugar is again significantly elevated at 293 today. 02/06/17. Seen by Dr. Max. The patient does not report increased drainage nor pain associated with the chronic left plantar foot diabetic ulcer since his last visit. He continues on Augmentin for chronic osteomyelitis of the foot. He also has an appointment with [facility] at the end of the month to address his homeless situation and will establish with his primary care provider in the first week in February to discuss management of his poorly controlled diabetes and other medical issues. 02/03/17. Seen by Rashad Dupont PA-C. The patient reports stable drainage from his left foot diabetic ulcer with underlying chronic osteomyelitis. He is about to finish his current prescription for osteomyelitis and notes no pain or other new symptoms related to this condition. His blood sugars continue to be >200 and he has not yet made an appointment with his PCP to address this. He says he is running out of insulin and has no refills. He continue to be homeless. 01/30/17. Seen by Dr. Max. The patient does not report increased drainage or pain associated with the chronic left plantar foot diabetic ulcer since his last visit. He continues on antibiotics for underlying chronic osteomyelitis and is her primary side effects. He also has an appointment within the next 3 weeks with his establishing primary care provider and we'll be addressing his diabetes management at that time. He also continues to reside in a motel while he is awaiting a decision on possible long-term placement in a attempt to resolve his homeless situation 01/23/17. Seen by Dr. Max. The patient is a report increased drainage from pain associated with the chronic left plantar foot diabetic ulcers since last visit. He is supposed to be continued on Augmentin for associated underlying chronic osteomyelitis however he admits that he has missed a few doses recently and he is establishing with new primary care provider. He also has a hospice social worker with him today assisting with his housing and healthcare needs. Of note, the patient admits to having a degree of cognitive dysfunction that frequently affects his ability to manage his diabetes medications, antibiotics, and maintain a stable housing situation. 01/20/17. Seen by Rashad Dupont PA-C. The patient reports continued purulent drainage from his left foot diabetic ulcer. He continues to take antibiotics for his chronic osteomyelitis irregularly and reports that his blood sugars continue to be above 200 most days. He remains homeless though states he may have a lead on some housing assistance. Due to his homelessness he walks on his foot more than is recommended. 01/16/17. Seen by Dr. Max. The patient does not report increased drainage associated with the chronic left plantar foot diabetic ulcer. The staff report however that he has missed a few doses of his antibiotics since treating underlying chronic osteomyelitis. Of note, he is homeless and has been sleeping in his car which is relevant in that the temperatures approached freezing overnight and he's not wearing socks other than the non- skid socks we've provided at the clinic. 01/09/17. Seen by Rashad Dupont PA-C. The patient reports increased drainage in his SNAP canister and he is nearly completed with his course of Cipro. His blood sugars continue to be above >150 when he takes them. 01/06/17. Seen by Rashad Dupont PA-C. The patient reports intermittently taking his antibiotics and has been unable to completely offload his ulcer due to being homeless. He reports that most blood sugars in the past few days have been over 200. 01/02/17. Seen by Dr. Max. The patient does not report increased pain or drainage associated with the chronic left plantar foot diabetic ulcer however the wound VAC leaked earlier in the week and was removed. The patient is noncommittal regarding the use of his antibiotics treating chronic osteomyelitis of the left first MTPJ also. He's not report fevers or feeling unwell is also noncommittal regarding 100% offloading that's been recommended. 12/30/16. Seen by Rashad Dupont PA-C. The patient reports intermittent compliance with his antibiotics. He admits he likes to take two tablets for the first dose and also admits to accidentally skipping doses. His foot ulcer has had increased drainage and increased odor. 12/26/16. Seen by Dr. Max. The patient is now taking ciprofloxacin to treat the recent Pseudomonas positive wound culture taken from the chronic left plantar foot diabetic ulcer. He does not report adverse side effects nor increased pain, swelling, or drainage associated with the ulcer. His blood sugars continue to be over 300 and he has not yet followed up on our recommendation to discuss this with his primary care provider to adjust his insulin. 12/23/16. Seen by Rashad Dupont PA-C. The patient reports he has still not been able to obtain his Levaquin to treat his left foot diabetic ulcer infection. Our office has continued to try and facilitate the prior authorization of this medication without success. The patient does not report fever or chills but does report that drainage has soaked through his sock. 12/19/16. Seen by Dr. Max. The patient does not report increased pain or drainage associated with the chronic left plantar foot diabetic ulcers since his last visit. He is started on levofloxacin for the new pseudomonas positive wound culture has not been able to pepper picker the antibiotic due to insurance prior authorization issues. 12/16/16. Seen by Dr. Max. The patient does not report increased pain or drainage associated with the chronic left plantar foot diabetic ulcer since last visit. His wound VAC became dysfunctional over the weekend and he presented to the clinic yesterday at which time it was removed. He states he continues to take his antibiotics for chronic osteomyelitis of the left first MTPJ however we are unable to confirm how many tablets he has left and is been rather noncompliant with this in the past. His blood sugars also continue to be significantly elevated. 12/12/16. Seen by Dr. Max. The patient does not report pain nor increased drainage associated with the chronic left plantar foot diabetic ulcer and he continues on antibiotics to treat associated chronic osteomyelitis of the left 1st MTPJ. 12/09/16. Seen by Dr. Max. The patient reports drainage in his shoe and sock today associated with the chronic left plantar foot diabetic ulcer. He states that the wound VAC however appear to be sealed and operating properly over the past few days. He is on amoxicillin for chronic osteomyelitis of the left first MTPJ and complains of some GI upset. 12/05/16. Seen by Dr. Max. The patient is now on amoxicillin for the recent Streptococcus positive wound culture taken as last visit. This is also treating chronic osteomyelitis of the left foot. He does not report adverse side effects nor pain or increased drainage associated with chronic left plantar foot diabetic ulcer. He is also tolerating negative pressure wound therapy without difficulty. 12/02/16. Seen by Dr. Max. The patient presented to clinic yesterday for a nurse visit following a wound vac dysfunction the previous day. He'd left the foam dressing in place however for the previous 24 hours despite being advised to remove it within 2 hours of it not working. He does not report pain at the chronic left diabetic foot ulcer site and he's been off of his antibiotics for 1-2 days (he's unsure of when he stopped taking them) and states he has a few each of the levofloxacin and Augmentin tablets that have been prescribed recently to treat underlying chronic osteomyelitis of the left foot. 11/28/16. Seen by Dr. Max. The patient does not report pain nor increased drainage associated with the chronic left plantar foot diabetic ulcer. He should've completed his course of levofloxacin by now but states that he has a couple of tablets left over. In relation to this he has also not taken his prior antibiotic prescriptions as scheduled. 11/25/16. Seen by Dr. Max. The patient does not report pain nor increased drainage associated with the chronic left plantar foot diabetic ulcer. He has nearly completed his course of levofloxacin that is treating underlying chronic osteomyelitis of the foot and he does not report adverse side effects. Also, his blood sugars are again over 300 and he states he does have an appointment next week week with his primary care provider to address his diabetes. 11/21/16. Seen by Dr. Max. The patient does not report pain in the left foot nor increased drainage associated with chronic plantar diabetic foot ulcer since his last visit. He continues on levofloxacin for chronic osteomyelitis of the left foot and does not report adverse side effects nor fevers or feeling unwell today. 11/18/16. Seen by Dr. Max. The patient does not report pain in the left foot nor increased drainage associated with chronic plantar diabetic foot ulcer since his last visit. He found the levofloxacin that he lost and restarted this over the weekend. He does not report adverse side effects nor fevers or feeling unwell today. 11/14/16. Seen by Dr. Max. The patient's left foot wound VAC fell off yesterday. He also states that he lost his levofloxacin that's treating chronic osteomyelitis of the left foot but he has started taking the Augmentin that he had leftover from his last prescription. He does not report increased drainage associated with a chronic left plantar foot diabetic ulcer however does report some pain at the site. 11/11/16. Seen by Dr. Max. The patient does not report increased drainage associated with a chronic left plantar foot diabetic ulcer and he continues on levofloxacin for underlying chronic osteomyelitis of the left first MTPJ. He does not reporting adverse side effects of antibiotics, fevers, or feeling unwell. His blood sugars continue to be significantly elevated and he is noncommittal regarding checking them and taking his insulin as prescribed. He also has not seen his primary care provider in the last few months as we recommended. 11/07/16. Seen by Dr. Max. The patient is now on levofloxacin and reports some nausea since starting this. He does not report significant drainage or pain associated with chronic left plantar foot diabetic ulcer however since his last visit. 11/04/16. Seen by Dr. Max. The patient states that he completed his Augmentin 2 days ago and he does not report increased drainage or pain associated with the chronic left plantar foot diabetic ulcer nor the underlying chronic osteomyelitis. His recent wound culture grew Klebsiella which is sensitive to Augmentin and he does not report fevers, feeling unwell, or adverse side effects to the antibiotics. 10/31/16. Seen by Dr. Max. The patient's wound VAC began leaking soon after his last visit and was removed at that time. He continues on Augmentin for chronic osteomyelitis associated with the chronic left plantar foot diabetic ulcer and feels that the pain has resolved over the past week. 10/28/16. Seen by Dr. Max. The patient states that the wound VAC started leaking yesterday he presented to the clinic and it was removed with the left plantar foot ulcer filled with alginate. He states he continues to take his antibiotics for chronic osteomyelitis of the foot and does not report adverse side effects. His blood sugars continue to be consistently over 200 however have improved somewhat as they were typically over 300 previously. He does not report fevers, pain in the foot, nor feeling unwell in general. 10/24/16. Seen by Dr. Max. The patient states he has restarted taking his antibiotics as prescribed and he does not report significant drainage associated with chronic left foot diabetic ulcer since his last visit. He also reports the pain has improved and he is not reporting fevers or feeling unwell. He is taking antibiotics for chronic osteomyelitis associated with the ulcer. 10/21/16. Seen by Dr. Max. The patient is not very engaging today and he is noncommittal regarding whether he is taking his antibiotics as prescribed. His recent wound culture grew Klebsiella sensitive to Augmentin however he states that his left foot pain associated with the diabetic ulcer and chronic osteomyelitis has increased over the past week. He does not report fevers however nor feeling unwell and his negative pressure wound therapy was held at last visit due to deterioration of the ulcer and concern for change of infection. 10/17/16. Seen by Dr. Max. The patient reports some pain associated with the chronic left plantar foot diabetic ulcer since his last visit staff report increased maceration in the nunu-ulcer area. He does not report fevers however states that he's not been taking his antibiotic entirely as prescribed. His blood sugars are over 300 again today he states he has been offloading the foot as recommended. 10/14/16. Seen by Dr. Max. The patient reports being more active on his feet the past few days despite wearing a snap negative pressure wound dressing. Does not report increased drainage associated with the left plantar foot diabetic ulcer and continues on Augmentin for chronic osteomyelitis of the foot. His blood sugars are improving somewhat into the 200s and he states he is checking these and taking insulin as recommended. He has not yet followed up with his primary care provider as recommended however in terms of his diabetes management. 10/10/16. Seen by Dr. Max. The patient has restarted his Augmentin as recommended that's treating chronic osteomyelitis of the left foot. He does not report increased drainage associated with the left plantar foot diabetic ulcer since his last visit. His blood sugars continue to be significantly elevated and he has not yet scheduled and appointment with his primary care provider to discuss this. 10/07/16. Seen by Dr. Max. The patient does not report increased drainage associated with the chronic left foot diabetic ulcer. He continues on negative pressure wound therapy and states he forgot to pepper picker his antibiotics that are treating chronic osteomyelitis in the foot. His blood sugars continue to be significantly elevated and is noncommittal regarding checking his blood sugars and taking his insulin routinely. 10/03/16. Seen by Dr. Max. The patient states he is nearly out of antibiotics that have been treating chronic osteomyelitis the left foot. He does not report any problems regarding the overlying diabetic foot ulcer nor negative pressure wound therapy. Also, his blood sugars 381 today and has been significantly elevated for months. This is despite his recent statement that he's been checking blood sugars and taking his insulin routinely. 09/30/16. Seen by Dr. Max. The patient does not report significant drainage or other acute issues associated with the chronic left plantar foot diabetic ulcers since his last visit. He continues on antibiotics for underlying osteomyelitis of the foot and does not report fevers or other side effects of antibiotics. He states his blood sugars are improving and are in the 200s this morning and that he's been checking them and taking his insulin as recommended. 09/26/16. Seen by Dr. Max. The patient does not report pain nor increased drainage associated with chronic left plantar foot diabetic ulcer and underlying chronic osteomyelitis since his last visit. Of note, he admits to not necessarily taking all of his antibiotics as recommended and his recent culture grew Klebsiella for which he is to be taken Augmentin. His blood sugars also continue to be elevated over 300 despite the fact he states he's been checking them taking his insulin. 09/23/16. Seen by Dr. Max. The patient does not report increased drainage or other acute changes regarding his chronic left plantar foot diabetic ulcer. He is checking his blood sugars and taking insulin however states that they still are often times over 300. He continues on Augmentin for underlying osteomyelitis of the foot and does not report adverse side effects. 09/21/16. Seen by Rashad Dupont PA-C. The patient reports that he continues to have high blood sugars despite taking 40 units twice daily of insulin. He reports occasionally missing a dose but tries to comply with his orders. He believes he has a follow up appointment soon with his PCP regarding diabetes but is unsure of the date. 09/15/16. Seen by Rashad Dupont PA-C. The patient reports continued difficulty sleeping due to difficulty breathing while supine, though he feels this is somewhat improved as he is reducing his fluid intake. He reports blood sugars consistently above 150 and believes he has an appointment with his PCP to review his diabetic regimen soon. He continues on augmentin for his osteomyelitis and his drainage from his left foot ulcer has been stable. 09/09/16. Seen by Dr. Max. The patient is not very engaging today however does not report any new problems regarding the chronic left plantar foot diabetic ulcer nor the wound VAC. He states he continues to take Augmentin as recommended for associated chronic osteomyelitis of the left first MTPJ and he is offloading as much as possible. He states he is also checking his blood sugars and taking his insulin as recommended however he has been quite noncompliant with this in the past. 09/05/16. Seen by Dr. Max. The patient does not report pain or increased drainage associated with the chronic left plantar foot diabetic ulcer since his last visit. He states he continues on Augmentin for osteomyelitis of the foot and does not report adverse side effects although he's not had a recent Rx written. His recent wound culture grew Klebsiella and group B Strep. 09/02/16. Seen by Rashad Dupont PA-C. The patient reports continued thirst and continued intake of a large amount of water. He reports that it is very difficult for him to resist drinking large amounts of fluids. His blood sugars continue to be over 200 and his chronic left foot diabetic ulcer has had stable drainage. He continues on oral antibiotics for his chronic osteomyelitis of the left foot. 08/29/16. Seen by Dr. Max. The patient does not report pain or increased drainage associated with the chronic left plantar foot diabetic ulcer since his last visit. He continues on Augmentin for osteomyelitis of the foot and does not report adverse side effects. His shortness of breath has improved as has his leg swelling and his recent ECHO showed only some diastolic dysfunction. He does report being very thirsty and drinking over a gallon of water and flavored drinks daily. His blood sugars have also been very poorly controlled over the past few months. 08/22/16. Seen by Dr. Max. The patient does not report pain or increased drainage associated with the chronic left plantar foot diabetic ulcer since his last visit although he's not very engaging today. He continues on Augmentin for osteomyelitis of the foot and does not report adverse side effects. Of note, his shortness of breath has improved as has his leg swelling and his ECHO showed only some diastolic dysfunction. He's not yet discussed this with is PCP however. 08/14/16. Seen by Dr. Max. The patient does not report pain or increased drainage associated with the chronic left plantar foot diabetic ulcer since his last visit. He continues on antibiotics for osteomyelitis of the foot and does not report adverse side effects. 08/19/16. Seen by Rashad Dupont PA-C. The patient reports continued high blood sugars, with all readings so far above 200. He reports stable drainage from her diabetic foot ulcer with underlying osteomyelitis and he has an upcoming echocardiogram to assess his orthopnea, which he reports is somewhat improved recently. He continues on augmentin for his underlying osteomyelitis. 08/15/16. Seen by Dr. Max. The patient does not report pain or significant drainage associated with chronic left plantar foot diabetic ulcer since his last visit. He is tolerating negative pressure wound therapy without difficulty and continues on antibiotics for acute osteomyelitis of the left first metatarsal. His blood sugars are over 400 today and he's non- committal regarding adherence to his insulin regimen. 08/12/16. Seen by Dr. Max. The patient reports that the SNAP wound VAC has not been working for the past day or so however he did not take the dressing off as recommended. The staff reports significant maceration associated with the chronic left plantar foot diabetic ulcer and he continues on antibiotics for underlying osteomyelitis of the first metatarsal. He is not checking blood sugars routinely and they continued to be significantly elevated over 200. He does not report fevers, pain in the foot, or feeling unwell. 08/07/16. Seen by Dr. Max. The patient does not report pain or significant drainage associated with chronic left plantar foot diabetic ulcer since his last visit. He is tolerating negative pressure wound therapy without difficulty and continues on antibiotics for acute osteomyelitis of the left first metatarsal. 08/04/16. Seen by Rashad Dupont PA-C. The patient reports continued difficulty sleeping due to shortness of breath when supine. He reports continued drainage from his Rivera grade III diabetic ulcer of the left foot. He continues to have very high blood sugars, with most readings above 200. 07/31/16. The patient does not report pain or significant drainage associated with chronic left plantar foot diabetic ulcer since his last visit. He is tolerating negative pressure wound therapy without difficulty and continues on antibiotics for acute osteomyelitis of the left first metatarsal. 07/28/16. Seen by Rashad Dupont PA-C. The patient reports continued drainage from his left foot Rivera grade III diabetic ulcer with underlying osteomyelitis, confirmed again recently on MRI. His blood sugars continue to be mostly above 250. He continues on antibiotics (augmentin until 08/08/16) to treat the chronic infection of this ulcer and to treat his osteomyelitis. 07/25/16. Seen by Dr. Max. The patient does not report pain or significant drainage associated with chronic left plantar foot diabetic ulcer since his last visit. His wound culture from the last visit grew Enterococcus and Strep group B. He is tolerating negative pressure wound therapy without difficulty and continues on antibiotics for acute osteomyelitis of the left first metatarsal. He does not check his blood sugars regularly and is noncommittal regarding taking his insulin as prescribed. He is also not wearing his offloading shoe as recommended. He does not report adverse side effects from the antibiotics, fevers, or feeling unwell in general. 07/23/16. Seen by Dr. Max. The patient does not report increased drainage or pain associated with the chronic left plantar foot diabetic ulcer and he's tolerated the wound VAC over the past few days without any difficulty. He continues on antibiotics for acute osteomyelitis of the left first metatarsal and does not report adverse side effects. He was seen by his primary care provider to establish care and specifically to address his diabetes and some recent shortness of breath which she states is now resolved. He states today that his medications have not been adjusted and he will see his primary care provider in 2 weeks again. His blood sugars continue to be elevated over 300 consistently. 07/21/16. Seen by Rashad Dupont PA-C. The patient reports severe shortness of breath with exertion and when supine, which begain 3 days ago and has worsened. The patient reports fevers and chills but denies chest pain. He has noted increased lower extremity edema during this time as well. He reports that he is unable to sleep because of the shortness of breath, but occasionally passes out from exhaustion. He reports that his left forefoot has become red and title i coordinator the past few days and drainage from his chronic diabetic ulcer has increased. 07/17/16. Seen by Dr. Max. The patient continues on Bactrim for osteomyelitis of the left foot and he continues with negative pressure wound therapy to treat the overlying diabetic ulcer. His blood sugars continue to be significantly elevated despite increase his Lantus to 30 units daily. He will establish with his primary care provider early next week. 07/14/16. Seen by Dr. Max. The patient continues on Bactrim for osteomyelitis of the left first metatarsaland has tolerated the wound VAC treating the overlying diabetic ulcer without any issues. His blood sugar is 391 today and his Lantus has recently been increased to 20 units daily. He does not report fevers, feeling unwell, or adverse side effects from the Bactrim. 06/30/16. Seen by Dr. Max. The patient continues on antibiotics for his chronic and infected left plantar foot diabetic ulcer. His MRI confirms osteomyelitis of the head of the first metatarsal. He is tolerating negative pressure wound therapy however remains somewhat noncompliant in terms of removal of the wound VAC if it's not working. He is not routinely checking his blood sugars however but states he is taking is 10 units of Lantus as prescribed. He will establish with a primary care provider in about 2 weeks and he does not report fevers or feeling unwell in general. 07/07/16. Seen by Rashad Dupont PA-C. The patient reports that he completed his MRI examination of his left foot today, just before this appointment. He reports continued drainage from his chronic diabetic foot ulcer of the left foot. Due to a labelling error, the wound cultures taken at his last visit were not processed. 07/03/16. Seen by Dr. Max. The patient disconnected his wound vac 2 days ago however did not remove the dressing as instructed. He's also not checking his blood sugars or taking insulin as prescribed and his blood sugars continue to be frequently elevated over 300 while in the clinic. He does not report pain or increased drainage associated with the chronic left foot diabetic ulcer, nor fevers or feeling unwell, since his last visit. 06/30/16. Seen by Rashad Dupont PA-C. The patient reports no increase in drainage from his chronic left foot diabetic ulcer. He reports better compliance with his insulin and glucose checks and reports that many of his sugars are still above 300. 06/26/16. Seen by Dr. Max. The patient does not report any problems regarding his wound VAC and he continues on doxycycline without reporting adverse side effects for the chronic infection of the left plantar foot diabetic ulcer. He's not routinely checking his blood sugars nor taking his insulin as recently prescribed and he's to establish with his new PCP within one month. 06/23/16. Seen by Rashad Dupont PA-C. The patient reports high blood sugars in the past few days despite being prescribed insulin by Dr. Max. The patient admits to forgetting more than 1/2 of his insulin doses since he was prescribed them. His left plantar foot diabetic ulcer has had stable and continued drainage.. 06/20/16. Seen by Dr. Max. The patient does not report any problems regarding his wound VAC and he continues on antibiotics for the chronic infection of the left plantar foot diabetic ulcer. He started insulin recently and states his blood sugars are between 200 and 300 and he is offloading with a wheelchair as much as possible. 06/18/16. Seen by Dr. Max. The patient does not report problems regarding the negative pressure dressing that was placed 2 days ago to treat the chronic left plantar foot diabetic ulcer. He does not report pain in the foot nor increased drainage and he continues on doxycycline for a chronic wound infection. He's also started taking his long acting insulin as prescribed last week and states his appointment to establish care with a new PCP is in about a month. His blood sugars continue to be elevated over 200 however. 06/16/16. Seen by Rashad Dupont PA-C. The patient reports continued blood sugars above 300 and continued drainage from his left plantar foot diabetic ulcer. 06/09/16. Seen by Rashad Dupont PA-C. The patient reports that he has been leaving his leg dependant when he has been sleeping and is noted to have experienced weight gain since his last appointment. He continues to have very high blood sugars and now has an appointment with primary care to establish care. 06/06/16. Seen by Dr. Max. The patient does not report pain nor significant drainage associated with the chronic left foot diabetic ulcer over the past week. Also, his blood sugars are again over 200 today. 05/29/16. Seen by Dr. Max. The patient does not report pain nor significant drainage associated with the chronic left foot diabetic ulcer over the past week. Although he told the staff that he's discussed his diabetes management with a PCP he tells me has not yet re- established with a PCP as we've recommended so has not been checking blood sugars nor taking diabetes medication. 05/22/16. Seen by Dr. Max. The patient does not report pain nor significant drainage associated with the chronic left foot diabetic ulcer over the past week. 05/19/16. Seen by Rashad Dupont PA-C. The patient reports increased drainage from his chronic left foot diabetic ulcer since his last evaluation. The patient is not wearing his [place] boot to offload his ulcer and he reports very high blood sugars in the previous week. The patient continues to be homeless and reports that he was focused on staying warm during the past few days. 05/12/16. Seen by Rashad Dupont PA-C. The patient reports intermittent compliance with his levaquin usage and has not seen [facility] yet for assessment and fitting of his [place] boot. In addition he reports a new ulcer on his left 5th toe which began a couple days ago. 05/08/16. Seen by Dr. Max. The patient does not report significant drainage nor pain associated with the chronic left plantar foot diabetic ulcer. He continues on antibiotics for an associated wound infection and does not report adverse side effects.He is also not checking his blood sugars routinely and is currently homeless and living in his car. 05/05/16. Seen by Rashad Dupont PA-C. The patient returns to our clinic after spending 12 weeks at [facility]. He reports that his left plantar foot diabetic ulcer never fully healed. He also reports that he has a [place] boot that he thinks still fits but is not wearing it. Currently he is on Bactrim and Cipro for an ulcer infection and reports missing doses frequently of these medications. 07/17/[address] Max. The patient does not report increased drainage, swelling, or erythema associated with his left plantar foot diabetic ulcer. He continues to offload the foot with a cane and wheelchair and is compliant with his antibiotic and diabetes regimens without reporting adverse side effects. 07/13/14 The patient's recent wound culture grew MRSA sensitive to doxycycline. He does not report increased pain, swelling, or drainage associated with the left plantar foot diabetic ulcer nor does he report fever, chills, or shakes as he has previously. He's compliant with his antibiotic and diabetes medications and states his blood sugars are around 150- 200. He's also met with his new PCP in the past week to establish care. 07/06/14 The patient does not report pain in either foot nor fever or chills. He states he's been compliant with his doxycycline and ciprofloxacin regimen as well as his diabetes regimen. He's not yet established with a PCP but has an appointment in October with a provider in [place]. He also states he does not leave his car very often and so has not had a need to use the wheelchair for offloading. 07/03/14 The patient reports that he is taking his antibiotics regularly now and does not report shakes fever or chills. He would prefer a PCP in [place] to one in [place] if he is not able to see someone in [facility]. 06/29/14 The patient states he's been mostly compliant with his antibiotics that now includes doxycycline plus cipro. He feels the left foot swelling and erythema are beginning to improve. He's also taking a lower dose of metformin along with his glipizide and he does not report 'shakes' as he did at the last visit. 06/26/14 The patient states he experienced some intermittent 'shakes' a couple of day ago and felt it was do to his metformin so he stopped taking it. He does not report fever, sweats, or chills however. He says he's been taking cipro as prescribed but he feels the left foot swelling and erythema are slowly progressing. He also admits to not using his wheelchair or can as recommended and walking a good bit over the weekend. 06/22/14 The patient's new to our clinic but was seen twice on consult as an inpatient over the past month. He's a homeless gentleman with a large left 1st MTPJ plantar ulcer and a smaller right lateral 5th MT ulcer. He's now on a 6 week course of ciprofloxacin based on his MRI that showed possible early osteomyelitis in the left 1st MTPJ sesmoid bone. Deep wound cultures from 06/16/14 grew Group A Streptococcs. He feels the swelling and erythema have improved in the left forefoot as has the drainage. He also states his subjective fevers have resolved. He's a newly diagnosed diabetic and is now on Metformin and Glipizide with an A1c 10.2 on 05/17/14 and he states he's compliant with his medication regimen. His arterial doppler showed only mild atherosclerotic disease in the right SFA. Of note, he's not yet established with a PCP at the [facility] and he states he use a wheelchair for mobilizing except for very short walks when he uses a cane to help offload the left foot. Past Medical History This information was obtained from the patient Patient has a medical history of: Diabetes, type II (A1c > 14 05/23/16; 10.2 06/06/14) Osteomyelitis (left 1st MTPJ sesmoid) Homeless Diabetic foot ulcer - 06/06/2014 (left 1st MTPJ; Rivera grade III with osteomyelitis; MRSA positive deep wound culture 07/11/14) Diabetic foot ulcer - 06/22/2014 (right 5th MT; Rivera grade I) Complaints and Symptoms This information was obtained from the patient Patient complains of: General Notes: I have reviewed and concur with the Review of Systems and Past Family Social History documents completed by the clinician, I have reviewed and concur with the Wound Assessment document completed by the clinician Integumentary (Hair/Skin/Nails): Open Sore Musculoskeletal: Assistive Devices Neurological: Abnormal Gait, Loss of Protective Sensation Prior Wound History: Drainage, Erythema, Malodor Psychiatric: Depression Patient denies complaints or symptoms related to: Cardiovascular (Central): Irregular heart beat Cardiovascular (Central/Peripheral): Lower extremity (leg) resting pain, Lower extremity (leg) swelling Cardiovascular (Peripheral) Constitutional Symptoms (General Health): Chills, Fever, Marked Weight Change Ear/Nose/Mouth/Throat: Hearing Loss / Aid Gastrointestinal (GI): Nausea / Vomiting, Stomach/abdominal pain Hematologic/Lymphatic: Bleeding / Clotting Disorders, Bleeding Tendency Musculoskeletal: Joint Swelling, Muscle Weakness Prior Wound History: Bleeding, Pain Psychiatric: Memory Loss Respiratory: Oxygen Use, Shortness of Breath OBJECTIVE Constitutional Vital signs reviewed and noted. Dishelved. Height/Length: 73 in (185.42 cm), Weight: 259 lbs (117.73 kgs), BMI: 34.2, Temperature: 98.3 ?F (36.83 ?C), Pulse: 90 bpm, Respiratory Rate: 18 breaths/min, Blood Pressure: 118/85 mmHg, Capillary Blood Glucose: 248 mg/dl , Pulse Oximetry: 95 %. Vital Signs Notes: Glucose per patient Ears, Nose, Mouth, and Throat: No clinically significant hearing loss on informal examination. Respiratory: No respiratory distress. Even respirations and without use of accessory muscles.. Cardiovascular: Affected extremity exhibits no peripheral edema or cyanosis, is warm, and is well perfused. Capillary refill is less than 2 seconds. Gastrointestinal (GI): Obese. Nondistended.. Musculoskeletal: Moderate left foot Charcot deformity. Integumentary (Hair, Skin) No periwound erythema, warmth, or significant drainage. No periwound rashes appreciated or noted otherwise.. Refer to appropriate clinician wound documentation for this visit; right and left foot ulcers extend to subcut with bases partially covered with pink granulation, remainder fibrin and slough. Moderate amount of callus in the periulcer areas. Wound #5 Left, Plantar Foot is a chronic Rivera Grade 3 Diabetic Ulcer and has received a status of Not Healed. Subsequent wound encounter measurements are 0.5cm length x 0.2cm width x 0.4cm depth, with an area of 0.1 sq cm and a volume of 0.04 cubic cm. No tunneling has been noted. No sinus tract has been noted. No undermining has been noted. There is a small amount of serosanguineous drainage noted which has no odor. The patient reports a wound pain of level 0/10. The wound margin is callus. Wound bed has Yes epithelialization, No eschar, No slough, Yes bright red, firm granulation. The periwound skin moisture is normal. The periwound skin color is normal. The periwound skin exhibited: Callus. The periwound skin did not exhibit: Brawny Induration, Edema, Excoriation, Induration, Crepitus, Fluctuance, Friable, Rash. The temperature of the periwound skin is WNL. Periwound skin does not exhibit signs or symptoms of infection. Local Pulse is Palpable. Wound #6 Right Fifth Toe is an acute Rivera Grade 1 Diabetic Ulcer and has received a status of Not Healed. Subsequent wound encounter measurements are 0.5cm length x 0.3cm width x 0.1cm depth, with an area of 0.15 sq cm and a volume of 0.015 cubic cm. No tunneling has been noted. No sinus tract has been noted. No undermining has been noted. There is a small amount of sanguineous drainage noted which has no odor. The patient reports no wound pain due to the wound being insensate. The wound margin is callus. Wound bed has Yes epithelialization, No eschar, No slough, Yes pink, firm granulation. The periwound skin moisture is normal. The periwound skin color is normal. The periwound skin exhibited: Callus. The temperature of the periwound skin is WNL. Periwound skin does not exhibit signs or symptoms of infection. Local Pulse is Palpable. Neurological: Cranial nerves grossly intact with symmetric function normal by informal observation.. ASSESSMENT Active Problems ICD-10 (Encounter Diagnosis) L97.522 - Non-pressure chronic ulcer of other part of left foot with fat layer exposed (Encounter Diagnosis) E11.621 - Type 2 diabetes mellitus with foot ulcer (Encounter Diagnosis) L97.522 - Non-pressure chronic ulcer of other part of left foot with fat layer exposed (Encounter Diagnosis) E11.65 - Type 2 diabetes mellitus with hyperglycemia (Encounter Diagnosis) B96.29 - Other Escherichia coli [E. coli] as the cause of diseases classified elsewhere PROCEDURES Wound #5 Wound #5 (Diabetic Ulcer) is located on the left, plantar foot. A skin/ subcutaneous tissue level surgical debridement with a total area debrided of 0.1 sq cm was performed by Jorge Luis Max MD. Subcutaneous was removed along with devitalized tissue: callus and slough. Pain control was achieved using 4% Lido. A time out was conducted prior to the start of the procedure. A minimal amount of bleeding was controlled with n/a. The procedure was tolerated well with a pain level of 0 throughout and a pain level of 0 following the procedure. Post Debridement Measurements: 0.5cm length x 0.2cm width x 0.5cm depth; with an area of 0.1 sq cm and a volume of 0.05 cubic cm; Wound #6 Wound #6 (Diabetic Ulcer) is located on the right fifth toe. A skin/ subcutaneous tissue level surgical debridement with a total area debrided of 0.15 sq cm was performed by Jorge Luis Max MD. Subcutaneous was removed along with devitalized tissue: callus and slough. The following instrument(s) were used: curette. Pain control was achieved using 4% Lido. A time out was conducted prior to the start of the procedure. A minimal amount of bleeding was controlled with n/a. The procedure was tolerated well with a pain level of 0 throughout and a pain level of 0 following the procedure. Post Debridement Measurements: 0.5cm length x 0.3cm width x 0.2cm depth; with an area of 0.15 sq cm and a volume of 0.03 cubic cm; Additional Information Muscle fascia or bone removed and sent to pathology?: No Muscle fascia or bone removed and sent to pathology?: No PLAN Wound Orders: Wound #5 Left, Plantar Foot Cleanser Cleanse Wound: - Normal Saline and gauze. May Shower. - Please avoid getting tap water in wound or on dressing. Cover while in shower. Topical Treatments Antibiotic/Antimicrobial Ointment/Cream. - Gentamicin ointment Dressings Cover and secure with: - Small Covrsite (or equivalent island dressing). Change Dressing: - Every other day. Wound #6 Right Fifth Toe Cleanser Cleanse Wound: - Normal Saline and gauze. May Shower. - Please avoid getting tap water in wound or on dressing. Cover while in shower. Topical Treatments Antibiotic/Antimicrobial Ointment/Cream. - Gentamicin ointment Dressings Primary dressing: - Foam Cover and secure with: - Tape Change Dressing: - Every other day Additional Orders: Off-Loading Keep weight off: - Left foot. Follow-Up Appointments Return Appointment: - - One week. Other information: If you develop fever, chills, increased pain, drainage, redness or swelling please call our office. If after hours, respond to the ER. Should you experience any significant changes in your wound(s) or have any questions regarding your home care instructions please contact the wound center @ [phone]. If after hours, contact your primary care physician or go to the hospital emergency room. Scribing Attestation I attest, as the nurse, that I scribed these orders for the physician. I've reviewed the clinician's documentation and agree with the evaluation and plan as written. In addition the patient's ulcers demonstrate evidence of non-viable devitalized tissue and they will continue to benefit from sharp debridement to help promote granulation and expedite healing. Also, the patient will complete his course of levofloxacin as prescribed and liaise with his PCP as previously recommended regarding his consistently elevated blood sugars. Electronic Signature(s) Signed By: Date: Jorge Luis Max MD 12/10/2017 09:13:39 Entered By: Jorge Luis Max on 12/10/2017 08:50:44
== END ==
PROVIDERS: PCP Family Medicine; Visit Provider Internal Medicine
DX: E11.621 Type 2 diabetes mellitus with foot ulcer (principal); L97.522 Non-pressure chronic ulcer of other part of left foot with fat layer exposed; L97.512 Non-pressure chronic ulcer of other part of right foot with fat layer exposed; E11.65 Type 2 diabetes mellitus with hyperglycemia; B96.29 Other Escherichia coli [E. coli] as the cause of diseases classified elsewhere
CPT/HCPCS: 11042

== ENCOUNTER → 2017-12-16 09:23 | Outpatient (CLI) | payer OTHER, MEDICAID, SELFPAY ==
--- NOTE | 2017-12-16 | OV.WND_ITS ---
Progress Note Details Patient Name: David Givens Patient Number: [id number] PatientPatientDate: 12/16/2017 Clinician: Adina Martinez Physician / Attendant Honor Bar: Jorge Luis Max SUBJECTIVE Chief Complaint This information was obtained from the patient Diabetic ulcer on left foot. Allergies Vicodin (Reaction: itching), codeine (Severity: Mild, Reaction: stomach upset) HPI This information was obtained from the patient 12/16/17. Seen by Dr. Max. The patient does not report drainage or pain associated with chronic left foot diabetic ulcer nor the lateral right 5th toe since his last visit. 12/09/17. Seen by Dr. Max. The patient does not report drainage or pain associated with chronic left foot diabetic ulcer nor the lateral right 5th toe since his last visit. He's now on levofloxacin for the E. coli positive wound culture taken from the left foot ulcer without reporting adverse side effects. His blood sugars continue to be elevated at 245 today and he's not had regular follow up with his PCP regarding this issue despite being encouraged to on many occasions. 12/01/17. Seen by Dr. Max. Mansoor. The patient does not report drainage or pain associated with chronic left foot diabetic ulcer since last visit however he reports a new ulcer over the lateral right 5th toe. He's unsure of how long this has been present though and does not report pain or significant drainage. He's also scheduled to see his PCP within the next two weeks to discuss his chronically elevated blood sugars. 11/26/17. Seen by Dr. Max. The patient does not report drainage or pain associated with chronic left foot diabetic ulcer since last visit. He's wearing his regular street shoes and uses a wheelchair much of the time to offload the foot. 11/19/17. Seen by Dr. Max. The patient does not report drainage or pain associated with chronic left foot diabetic ulcer since last visit. Of note, the patient's blood sugar today is 395 and despite his reported attempt recently to work with his PCP on improving his blood glucose control. 11/12/17. Seen by Dr. Max. The patient does not report drainage or pain associated with chronic left foot diabetic ulcer since last visit. 11/04/17. Seen by Dr. Max. The patient does not report drainage or pain associated with chronic left foot diabetic ulcer since last visit. 10/27/17. Seen by Dr. Max. The patient returns today with recurrence of the left plantar foot 1st MTPJ diabetic foot ulcer that was very chronic but eventually healed in May of this year. He does not report pain or drainage associated with this. He was seen in August also but did not follow up. His blood sugars continue to be elevated over 300 and he states his Lantus is being increased by his PCP. 09/04/17. Seen by Rashad Dupont PA-C. The patient reports minimal drainage from his left foot ulcer. His blood sugars continue to be >150 on most days. 08/28/17. Seen by Dr. Max. The patient only picked up his levofloxacin 3 days ago that was prescribed for the recent E. coli culture taken from the left plantar foot diabetic ulcer. He does not report adverse side effects nor significant drainage from the ulcer. Of note , his blood sugar today is again over 300 and he states he has rhubarb pie last night. He has an appointment with is PCP next week to discuss adjusting his dose of Lantus. 08/21/17. Seen by Dr. Max. The patient's wound culture taken from the recurrent left 1st MTPJ diabetic ulcer grew E. coli and Streptococcus and he's applying topical gentamicin as recommended. The nurse reports maceration and drainage on his dressing today and his blood sugar is again over 300. 08/17/17. Seen by Dr. Max. The patient returns today with recurrence of the left plantar foot 1st MTPJ diabetic foot ulcer that was very chronic but eventually healed in May of this year. He states a callus has been accumulating and it started to drain last week. He does not report pain in the foot nor swelling but states the 1st toe appeared red yesterday however this has now resolved. He uses a wheelchair for offloading and his blood sugars continue to be over 300. He has a history of poor compliance with his diabetes management and resides in assisted living. 06/02/17. Seen by Dr. Max. The patient does not report drainage or pain associated with chronic left foot diabetic ulcer since last visit. 05/26/17. Seen by Rashad Dupont PA-C. The patient does not report increased drainage from his left foot diabetic ulcer. 05/12/17. Seen by Dr. Max. The patient does not report pain nor increased drainage associated with the chronic left plantar foot diabetic ulcer. He also continues on doxycycline for chronic osteomyelitis of the left MTPJ. 05/05/17. Seen by Rashad Dupont PA-C. The patient reports that he will be moving into [facility] this Thursday. He continues to have high blood sugars and is reportedly compliant with his doxycycline (though he thought he was taking levaquin) and he does not report increased drainage. 04/28/17. Seen by Rashad Dupont PA-C. The patient reports having to walk more than normal because his truck ran out of gas this week. He has not noted any drainage from his left foot diabetic ulcer. He continues on Doxycycline for chronic osteomyelitis. His blood sugars have been >200 this week. Of note, he is wearing regular shoes and does not own shoes that are custom fitted to his foot deformities, which have been present for several years. 04/21/17. Seen by Rashad Dupont PA-C. The patient reports minimal drainage from his left 1st toe diabetic ulcer. Today he reports that he believes he was taking Levaquin recently and will be out of antibiotics today. His most recent X-ray of the left foot shows worsening chronic osteomyelitis. 04/18/17. Seen by Rashad Dupont PA-C. The patient reports decreased drainage from his chronic left 1st toe ulcer. He is nearly out of his Augmentin, which he was taking for his ulcer infection. 04/13/17. Seen Dr. Max. The patient returns to our clinic, after being seen on Thursday, due to increased swelling and erythema of the left first toe over the weekend. His first MTPJ diabetic ulcer has improved considerably over the past few weeks and he has been taking Augmentin for an associated group B strep positive wound culture taken last week. He does not report fevers or pain in the foot and his blood sugars continue to be significantly elevated. 04/10/17. Seen by Rashad Dupont PA-C. The patient reports continued redness and warmth despite taking Augmentin for his strep positive ulcer infection of the left 1st toe. He reports missing some doses of the antibiotic however. His blood sugars have been high since he ran out of insulin a few days ago. He is currently still homeless with housing pending and is able to stay in a local motel on most nights. 04/07/17. Seen by Dr. Max. The patient does not report pain nor increased drainage associated with the chronic left plantar foot diabetic ulcer. He's now on Augmentin again for cellulitis of the left 1st toe diagnosed at his last visit and his wound culture grew Group B Strep. He feels the swelling decreased and he does not report fevers, pain, or adverse side effects of the antibiotics. 04/03/17. Seen by Dr. Max. The patient does not report pain nor decreased drainage associated with the chronic left plantar foot diabetic ulcer however he does feel that his left first toe is red and swollen today. He does not report fevers nor feeling on well and has been off antibiotics were treating chronic osteomyelitis of the first MTPJ for at least a week. His blood sugars continue to be persistently elevated and despite establishing with primary care is provider months ago he has not been able to improve upon his diabetes management. 03/27/17. Seen by Dr. Max. The patient does not report increased drainage or pain associated with the chronic left plantar foot diabetic ulcer since his last visit. His wound culture from the last visit grew group B streptococcus and he's not currently on antibiotics. 03/24/17. Seen Dr. Max. The patient is here for a change of his wound VAC however the staff report increased maceration around the left plantar foot diabetic ulcer. He has now been off of antibiotics for about a week and has been treated for chronic osteomyelitis for the past few months. 03/20/17. Seen by Dr. Max. The patient states his wound VAC stopped working earlier in the week and he has not picked up his prescription of Augmentin that was to treat chronic osteomyelitis associated with the left plantar foot diabetic ulcer. Of note, his blood sugar today is again very elevated at 386. 03/11/17. Seen by Dr. Max. The patient states his wound VAC became dysfunctional 2 days ago. He continues on Augmentin for chronic osteomyelitis associated to chronic left plantar foot diabetic ulcer. He does not report pain nor significant drainage from the ulcer nor side effects from antibiotics. 03/06/17. Seen by Dr. Max. The patient does not report increased drainage or pain associated with the chronic left plantar foot diabetic ulcer since his last visit. He states he's continuing on Augmentin for underlying chronic osteomyelitis of the 1st MTPJ as recommended but will run out of antibiotics early next week. 02/27/17. Seen by Dr. Max. The patient does not report pain or increased drainage associated with chronic left plantar foot diabetic ulcer since last visit. His wound VAC was changed to a SID and he tolerated this well without any issues. He continues on Augmentin for underlying chronic osteomyelitis and his blood sugar is again elevated over 300 today despite establishing with primary care and being started on his insulin and metformin. 02/24/17. Seen by Dr. Max. The patient does not report increased pain nor drainage associated with the chronic left plantar foot diabetic ulcer. His blood sugars are again near 400 however he has seen his primary care provider and has been started on insulin and metformin which he will apple picker from the pharmacy today. He continues on antibiotics also for underlying chronic osteomyelitis of the left foot. 02/20/17. Seen by Dr. Max. The patient does not report increased pain nor drainage associated with the chronic left plantar foot diabetic ulcer. Of note he is homeless and his mobility has been limited due to the winter weather recently. He is a bit noncommittal regarding adherence to his antibiotic regimen that's treating underlying chronic osteomyelitis. His blood sugars again are over 300 and he has a history of noncompliance regarding his diabetes management. 02/17/17. Seen by Rashad Dupont PA-C. The patient reports no increase in drainage from his diabetic foot ulcer of the left foot. He reports that his blood sugar is high today because he drank several slurpees from [employer] last night. 02/13/17. Seen by Dr. Max. The patient states that there has been increased drainage associated with the chronic left plantar foot diabetic ulcer over the past few days. The staff also report a significant malodor today. He admits to missing a few days worth of antibiotics as he's been feeling unwell over the past week with an upper respiratory tract infection.He is also scheduled appointment to establish with his primary care provider and of note his blood sugar is again significantly elevated at 293 today. 02/06/17. Seen by Dr. Max. The patient does not report increased drainage nor pain associated with the chronic left plantar foot diabetic ulcer since his last visit. He continues on Augmentin for chronic osteomyelitis of the foot. He also has an appointment with [facility] at the end of the month to address his homeless situation and will establish with his primary care provider in the first week in February to discuss management of his poorly controlled diabetes and other medical issues. 02/03/17. Seen by Rashad Dupont PA-C. The patient reports stable drainage from his left foot diabetic ulcer with underlying chronic osteomyelitis. He is about to finish his current prescription for osteomyelitis and notes no pain or other new symptoms related to this condition. His blood sugars continue to be >200 and he has not yet made an appointment with his PCP to address this. He says he is running out of insulin and has no refills. He continue to be homeless. 01/30/17. Seen by Dr. Max. The patient does not report increased drainage or pain associated with the chronic left plantar foot diabetic ulcer since his last visit. He continues on antibiotics for underlying chronic osteomyelitis and is her primary side effects. He also has an appointment within the next 3 weeks with his establishing primary care provider and we'll be addressing his diabetes management at that time. He also continues to reside in a motel while he is awaiting a decision on possible long-term placement in a attempt to resolve his homeless situation 01/23/17. Seen by Dr. Max. The patient is a report increased drainage from pain associated with the chronic left plantar foot diabetic ulcers since last visit. He is supposed to be continued on Augmentin for associated underlying chronic osteomyelitis however he admits that he has missed a few doses recently and he is establishing with new primary care provider. He also has a social services assistant with him today assisting with his housing and healthcare needs. Of note, the patient admits to having a degree of cognitive dysfunction that frequently affects his ability to manage his diabetes medications, antibiotics, and maintain a stable housing situation. 01/20/17. Seen by Rashda Duopnt PA-C. The patient reports continued purulent drainage from his left foot diabetic ulcer. He continues to take antibiotics for his chronic osteomyelitis irregularly and reports that his blood sugars continue to be above 200 most days. He remains homeless though states he may have a lead on some housing assistance. Due to his homelessness he walks on his foot more than is recommended. 01/16/17. Seen by Dr. Max. The patient does not report increased drainage associated with the chronic left plantar foot diabetic ulcer. The staff report however that he has missed a few doses of his antibiotics since treating underlying chronic osteomyelitis. Of note, he is homeless and has been sleeping in his car which is relevant in that the temperatures approached freezing overnight and he's not wearing socks other than the non- skid socks we've provided at the clinic. 01/09/17. Seen by Rashad Dupont PA-C. The patient reports increased drainage in his SNAP canister and he is nearly completed with his course of Cipro. His blood sugars continue to be above >150 when he takes them. 01/06/17. Seen by Rashad Dupont PA-C. The patient reports intermittently taking his antibiotics and has been unable to completely offload his ulcer due to being homeless. He reports that most blood sugars in the past few days have been over 200. 01/02/17. Seen by Dr. Max. The patient does not report increased pain or drainage associated with the chronic left plantar foot diabetic ulcer however the wound VAC leaked earlier in the week and was removed. The patient is noncommittal regarding the use of his antibiotics treating chronic osteomyelitis of the left first MTPJ also. He's not report fevers or feeling unwell is also noncommittal regarding 100% offloading that's been recommended. 12/30/16. Seen by Rashad Dupont PA-C. The patient reports intermittent compliance with his antibiotics. He admits he likes to take two tablets for the first dose and also admits to accidentally skipping doses. His foot ulcer has had increased drainage and increased odor. 12/26/16. Seen by Dr. Max. The patient is now taking ciprofloxacin to treat the recent Pseudomonas positive wound culture taken from the chronic left plantar foot diabetic ulcer. He does not report adverse side effects nor increased pain, swelling, or drainage associated with the ulcer. His blood sugars continue to be over 300 and he has not yet followed up on our recommendation to discuss this with his primary care provider to adjust his insulin. 12/23/16. Seen by Rashad Dupont PA-C. The patient reports he has still not been able to obtain his Levaquin to treat his left foot diabetic ulcer infection. Our office has continued to try and facilitate the prior authorization of this medication without success. The patient does not report fever or chills but does report that drainage has soaked through his sock. 12/19/16. Seen by Dr. Max. The patient does not report increased pain or drainage associated with the chronic left plantar foot diabetic ulcers since his last visit. He is started on levofloxacin for the new pseudomonas positive wound culture has not been able to apple picker the antibiotic due to insurance prior authorization issues. 12/16/16. Seen by Dr. Max. The patient does not report increased pain or drainage associated with the chronic left plantar foot diabetic ulcer since last visit. His wound VAC became dysfunctional over the weekend and he presented to the clinic yesterday at which time it was removed. He states he continues to take his antibiotics for chronic osteomyelitis of the left first MTPJ however we are unable to confirm how many tablets he has left and is been rather noncompliant with this in the past. His blood sugars also continue to be significantly elevated. 12/12/16. Seen by Dr. Max. The patient does not report pain nor increased drainage associated with the chronic left plantar foot diabetic ulcer and he continues on antibiotics to treat associated chronic osteomyelitis of the left 1st MTPJ. 12/09/16. Seen by Dr. Max. The patient reports drainage in his shoe and sock today associated with the chronic left plantar foot diabetic ulcer. He states that the wound VAC however appear to be sealed and operating properly over the past few days. He is on amoxicillin for chronic osteomyelitis of the left first MTPJ and complains of some GI upset. 12/05/16. Seen by Dr. Max. The patient is now on amoxicillin for the recent Streptococcus positive wound culture taken as last visit. This is also treating chronic osteomyelitis of the left foot. He does not report adverse side effects nor pain or increased drainage associated with chronic left plantar foot diabetic ulcer. He is also tolerating negative pressure wound therapy without difficulty. 12/02/16. Seen by Dr. Max. The patient presented to clinic yesterday for a nurse visit following a wound vac dysfunction the previous day. He'd left the foam dressing in place however for the previous 24 hours despite being advised to remove it within 2 hours of it not working. He does not report pain at the chronic left diabetic foot ulcer site and he's been off of his antibiotics for 1-2 days (he's unsure of when he stopped taking them) and states he has a few each of the levofloxacin and Augmentin tablets that have been prescribed recently to treat underlying chronic osteomyelitis of the left foot. 11/28/16. Seen by Dr. Max. The patient does not report pain nor increased drainage associated with the chronic left plantar foot diabetic ulcer. He should've completed his course of levofloxacin by now but states that he has a couple of tablets left over. In relation to this he has also not taken his prior antibiotic prescriptions as scheduled. 11/25/16. Seen by Dr. Max. The patient does not report pain nor increased drainage associated with the chronic left plantar foot diabetic ulcer. He has nearly completed his course of levofloxacin that is treating underlying chronic osteomyelitis of the foot and he does not report adverse side effects. Also, his blood sugars are again over 300 and he states he does have an appointment next week week with his primary care provider to address his diabetes. 11/21/16. Seen by Dr. Max. The patient does not report pain in the left foot nor increased drainage associated with chronic plantar diabetic foot ulcer since his last visit. He continues on levofloxacin for chronic osteomyelitis of the left foot and does not report adverse side effects nor fevers or feeling unwell today. 11/18/16. Seen by Dr. Max. The patient does not report pain in the left foot nor increased drainage associated with chronic plantar diabetic foot ulcer since his last visit. He found the levofloxacin that he lost and restarted this over the weekend. He does not report adverse side effects nor fevers or feeling unwell today. 11/14/16. Seen by Dr. Max. The patient's left foot wound VAC fell off yesterday. He also states that he lost his levofloxacin that's treating chronic osteomyelitis of the left foot but he has started taking the Augmentin that he had leftover from his last prescription. He does not report increased drainage associated with a chronic left plantar foot diabetic ulcer however does report some pain at the site. 11/11/16. Seen by Dr. Max. The patient does not report increased drainage associated with a chronic left plantar foot diabetic ulcer and he continues on levofloxacin for underlying chronic osteomyelitis of the left first MTPJ. He does not reporting adverse side effects of antibiotics, fevers, or feeling unwell. His blood sugars continue to be significantly elevated and he is noncommittal regarding checking them and taking his insulin as prescribed. He also has not seen his primary care provider in the last few months as we recommended. 11/07/16. Seen by Dr. Max. The patient is now on levofloxacin and reports some nausea since starting this. He does not report significant drainage or pain associated with chronic left plantar foot diabetic ulcer however since his last visit. 11/04/16. Seen by Dr. Max. The patient states that he completed his Augmentin 2 days ago and he does not report increased drainage or pain associated with the chronic left plantar foot diabetic ulcer nor the underlying chronic osteomyelitis. His recent wound culture grew Klebsiella which is sensitive to Augmentin and he does not report fevers, feeling unwell, or adverse side effects to the antibiotics. 10/31/16. Seen by Dr. Max. The patient's wound VAC began leaking soon after his last visit and was removed at that time. He continues on Augmentin for chronic osteomyelitis associated with the chronic left plantar foot diabetic ulcer and feels that the pain has resolved over the past week. 10/28/16. Seen by Dr. Max. The patient states that the wound VAC started leaking yesterday he presented to the clinic and it was removed with the left plantar foot ulcer filled with alginate. He states he continues to take his antibiotics for chronic osteomyelitis of the foot and does not report adverse side effects. His blood sugars continue to be consistently over 200 however have improved somewhat as they were typically over 300 previously. He does not report fevers, pain in the foot, nor feeling unwell in general. 10/24/16. Seen by Dr. Max. The patient states he has restarted taking his antibiotics as prescribed and he does not report significant drainage associated with chronic left foot diabetic ulcer since his last visit. He also reports the pain has improved and he is not reporting fevers or feeling unwell. He is taking antibiotics for chronic osteomyelitis associated with the ulcer. 10/21/16. Seen by Dr. Max. The patient is not very engaging today and he is noncommittal regarding whether he is taking his antibiotics as prescribed. His recent wound culture grew Klebsiella sensitive to Augmentin however he states that his left foot pain associated with the diabetic ulcer and chronic osteomyelitis has increased over the past week. He does not report fevers however nor feeling unwell and his negative pressure wound therapy was held at last visit due to deterioration of the ulcer and concern for change of infection. 10/17/16. Seen by Dr. Max. The patient reports some pain associated with the chronic left plantar foot diabetic ulcer since his last visit staff report increased maceration in the nunu-ulcer area. He does not report fevers however states that he's not been taking his antibiotic entirely as prescribed. His blood sugars are over 300 again today he states he has been offloading the foot as recommended. 10/14/16. Seen by Dr. Max. The patient reports being more active on his feet the past few days despite wearing a snap negative pressure wound dressing. Does not report increased drainage associated with the left plantar foot diabetic ulcer and continues on Augmentin for chronic osteomyelitis of the foot. His blood sugars are improving somewhat into the 200s and he states he is checking these and taking insulin as recommended. He has not yet followed up with his primary care provider as recommended however in terms of his diabetes management. 10/10/16. Seen by Dr. Max. The patient has restarted his Augmentin as recommended that's treating chronic osteomyelitis of the left foot. He does not report increased drainage associated with the left plantar foot diabetic ulcer since his last visit. His blood sugars continue to be significantly elevated and he has not yet scheduled and appointment with his primary care provider to discuss this. 10/07/16. Seen by Dr. Max. The patient does not report increased drainage associated with the chronic left foot diabetic ulcer. He continues on negative pressure wound therapy and states he forgot to apple picker his antibiotics that are treating chronic osteomyelitis in the foot. His blood sugars continue to be significantly elevated and is noncommittal regarding checking his blood sugars and taking his insulin routinely. 10/03/16. Seen by Dr. Max. The patient states he is nearly out of antibiotics that have been treating chronic osteomyelitis the left foot. He does not report any problems regarding the overlying diabetic foot ulcer nor negative pressure wound therapy. Also, his blood sugars 381 today and has been significantly elevated for months. This is despite his recent statement that he's been checking blood sugars and taking his insulin routinely. 09/30/16. Seen by Dr. Max. The patient does not report significant drainage or other acute issues associated with the chronic left plantar foot diabetic ulcers since his last visit. He continues on antibiotics for underlying osteomyelitis of the foot and does not report fevers or other side effects of antibiotics. He states his blood sugars are improving and are in the 200s this morning and that he's been checking them and taking his insulin as recommended. 09/26/16. Seen by Dr. Max. The patient does not report pain nor increased drainage associated with chronic left plantar foot diabetic ulcer and underlying chronic osteomyelitis since his last visit. Of note, he admits to not necessarily taking all of his antibiotics as recommended and his recent culture grew Klebsiella for which he is to be taken Augmentin. His blood sugars also continue to be elevated over 300 despite the fact he states he's been checking them taking his insulin. 09/23/16. Seen by Dr. Max. The patient does not report increased drainage or other acute changes regarding his chronic left plantar foot diabetic ulcer. He is checking his blood sugars and taking insulin however states that they still are often times over 300. He continues on Augmentin for underlying osteomyelitis of the foot and does not report adverse side effects. 09/21/16. Seen by Rashad Dupont PA-C. The patient reports that he continues to have high blood sugars despite taking 40 units twice daily of insulin. He reports occasionally missing a dose but tries to comply with his orders. He believes he has a follow up appointment soon with his PCP regarding diabetes but is unsure of the date. 09/15/16. Seen by Rashad Dupont PA-C. The patient reports continued difficulty sleeping due to difficulty breathing while supine, though he feels this is somewhat improved as he is reducing his fluid intake. He reports blood sugars consistently above 150 and believes he has an appointment with his PCP to review his diabetic regimen soon. He continues on augmentin for his osteomyelitis and his drainage from his left foot ulcer has been stable. 09/09/16. Seen by Dr. Max. The patient is not very engaging today however does not report any new problems regarding the chronic left plantar foot diabetic ulcer nor the wound VAC. He states he continues to take Augmentin as recommended for associated chronic osteomyelitis of the left first MTPJ and he is offloading as much as possible. He states he is also checking his blood sugars and taking his insulin as recommended however he has been quite noncompliant with this in the past. 09/05/16. Seen by Dr. Max. The patient does not report pain or increased drainage associated with the chronic left plantar foot diabetic ulcer since his last visit. He states he continues on Augmentin for osteomyelitis of the foot and does not report adverse side effects although he's not had a recent Rx written. His recent wound culture grew Klebsiella and group B Strep. 09/02/16. Seen by Rashad Dupont PA-C. The patient reports continued thirst and continued intake of a large amount of water. He reports that it is very difficult for him to resist drinking large amounts of fluids. His blood sugars continue to be over 200 and his chronic left foot diabetic ulcer has had stable drainage. He continues on oral antibiotics for his chronic osteomyelitis of the left foot. 08/29/16. Seen by Dr. Max. The patient does not report pain or increased drainage associated with the chronic left plantar foot diabetic ulcer since his last visit. He continues on Augmentin for osteomyelitis of the foot and does not report adverse side effects. His shortness of breath has improved as has his leg swelling and his recent ECHO showed only some diastolic dysfunction. He does report being very thirsty and drinking over a gallon of water and flavored drinks daily. His blood sugars have also been very poorly controlled over the past few months. 08/22/16. Seen by Dr. Max. The patient does not report pain or increased drainage associated with the chronic left plantar foot diabetic ulcer since his last visit although he's not very engaging today. He continues on Augmentin for osteomyelitis of the foot and does not report adverse side effects. Of note, his shortness of breath has improved as has his leg swelling and his ECHO showed only some diastolic dysfunction. He's not yet discussed this with is PCP however. 08/14/16. Seen by Dr. Max. The patient does not report pain or increased drainage associated with the chronic left plantar foot diabetic ulcer since his last visit. He continues on antibiotics for osteomyelitis of the foot and does not report adverse side effects. 08/19/16. Seen by Rashad Dupont PA-C. The patient reports continued high blood sugars, with all readings so far above 200. He reports stable drainage from her diabetic foot ulcer with underlying osteomyelitis and he has an upcoming echocardiogram to assess his orthopnea, which he reports is somewhat improved recently. He continues on augmentin for his underlying osteomyelitis. 08/15/16. Seen by Dr. Max. The patient does not report pain or significant drainage associated with chronic left plantar foot diabetic ulcer since his last visit. He is tolerating negative pressure wound therapy without difficulty and continues on antibiotics for acute osteomyelitis of the left first metatarsal. His blood sugars are over 400 today and he's non- committal regarding adherence to his insulin regimen. 08/12/16. Seen by Dr. Max. The patient reports that the SNAP wound VAC has not been working for the past day or so however he did not take the dressing off as recommended. The staff reports significant maceration associated with the chronic left plantar foot diabetic ulcer and he continues on antibiotics for underlying osteomyelitis of the first metatarsal. He is not checking blood sugars routinely and they continued to be significantly elevated over 200. He does not report fevers, pain in the foot, or feeling unwell. 08/07/16. Seen by Dr. Max. The patient does not report pain or significant drainage associated with chronic left plantar foot diabetic ulcer since his last visit. He is tolerating negative pressure wound therapy without difficulty and continues on antibiotics for acute osteomyelitis of the left first metatarsal. 08/04/16. Seen by Rashad Dupont PA-C. The patient reports continued difficulty sleeping due to shortness of breath when supine. He reports continued drainage from his Rivera grade III diabetic ulcer of the left foot. He continues to have very high blood sugars, with most readings above 200. 07/31/16. The patient does not report pain or significant drainage associated with chronic left plantar foot diabetic ulcer since his last visit. He is tolerating negative pressure wound therapy without difficulty and continues on antibiotics for acute osteomyelitis of the left first metatarsal. 07/28/16. Seen by Rashad Dupont PA-C. The patient reports continued drainage from his left foot Rivera grade III diabetic ulcer with underlying osteomyelitis, confirmed again recently on MRI. His blood sugars continue to be mostly above 250. He continues on antibiotics (augmentin until 08/08/16) to treat the chronic infection of this ulcer and to treat his osteomyelitis. 07/25/16. Seen by Dr. Max. The patient does not report pain or significant drainage associated with chronic left plantar foot diabetic ulcer since his last visit. His wound culture from the last visit grew Enterococcus and Strep group B. He is tolerating negative pressure wound therapy without difficulty and continues on antibiotics for acute osteomyelitis of the left first metatarsal. He does not check his blood sugars regularly and is noncommittal regarding taking his insulin as prescribed. He is also not wearing his offloading shoe as recommended. He does not report adverse side effects from the antibiotics, fevers, or feeling unwell in general. 07/23/16. Seen by Dr. Max. The patient does not report increased drainage or pain associated with the chronic left plantar foot diabetic ulcer and he's tolerated the wound VAC over the past few days without any difficulty. He continues on antibiotics for acute osteomyelitis of the left first metatarsal and does not report adverse side effects. He was seen by his primary care provider to establish care and specifically to address his diabetes and some recent shortness of breath which she states is now resolved. He states today that his medications have not been adjusted and he will see his primary care provider in 2 weeks again. His blood sugars continue to be elevated over 300 consistently. 07/21/16. Seen by Rashad Dupont PA-C. The patient reports severe shortness of breath with exertion and when supine, which begain 3 days ago and has worsened. The patient reports fevers and chills but denies chest pain. He has noted increased lower extremity edema during this time as well. He reports that he is unable to sleep because of the shortness of breath, but occasionally passes out from exhaustion. 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 07/17/16. Seen by Dr. Max. The patient continues on Bactrim for osteomyelitis of the left foot and he continues with negative pressure wound therapy to treat the overlying diabetic ulcer. His blood sugars continue to be significantly elevated despite increase his Lantus to 30 units daily. He will establish with his primary care provider early next week. 07/14/16. Seen by Dr. Max. The patient continues on Bactrim for osteomyelitis of the left first metatarsaland has tolerated the wound VAC treating the overlying diabetic ulcer without any issues. His blood sugar is 391 today and his Lantus has recently been increased to 20 units daily. He does not report fevers, feeling unwell, or adverse side effects from the Bactrim. 06/30/16. Seen by Dr. Max. The patient continues on antibiotics for his chronic and infected left plantar foot diabetic ulcer. His MRI confirms osteomyelitis of the head of the first metatarsal. He is tolerating negative pressure wound therapy however remains somewhat noncompliant in terms of removal of the wound VAC if it's not working. He is not routinely checking his blood sugars however but states he is taking is 10 units of Lantus as prescribed. He will establish with a primary care provider in about 2 weeks and he does not report fevers or feeling unwell in general. 07/07/16. Seen by Rashad Dupont PA-C. The patient reports that he completed his MRI examination of his left foot today, just before this appointment. He reports continued drainage from his chronic diabetic foot ulcer of the left foot. Due to a labelling error, the wound cultures taken at his last visit were not processed. 07/03/16. Seen by Dr. Max. The patient disconnected his wound vac 2 days ago however did not remove the dressing as instructed. He's also not checking his blood sugars or taking insulin as prescribed and his blood sugars continue to be frequently elevated over 300 while in the clinic. He does not report pain or increased drainage associated with the chronic left foot diabetic ulcer, nor fevers or feeling unwell, since his last visit. 06/30/16. Seen by Rashad Dupont PA-C. The patient reports no increase in drainage from his chronic left foot diabetic ulcer. He reports better compliance with his insulin and glucose checks and reports that many of his sugars are still above 300. 06/26/16. Seen by Dr. Max. The patient does not report any problems regarding his wound VAC and he continues on doxycycline without reporting adverse side effects for the chronic infection of the left plantar foot diabetic ulcer. He's not routinely checking his blood sugars nor taking his insulin as recently prescribed and he's to establish with his new PCP within one month. 06/23/16. Seen by Rashad Dupont PA-C. The patient reports high blood sugars in the past few days despite being prescribed insulin by Dr. Max. The patient admits to forgetting more than 1/2 of his insulin doses since he was prescribed them. His left plantar foot diabetic ulcer has had stable and continued drainage.. 06/20/16. Seen by Dr. Max. The patient does not report any problems regarding his wound VAC and he continues on antibiotics for the chronic infection of the left plantar foot diabetic ulcer. He started insulin recently and states his blood sugars are between 200 and 300 and he is offloading with a wheelchair as much as possible. 06/18/16. Seen by Dr. Max. The patient does not report problems regarding the negative pressure dressing that was placed 2 days ago to treat the chronic left plantar foot diabetic ulcer. He does not report pain in the foot nor increased drainage and he continues on doxycycline for a chronic wound infection. He's also started taking his long acting insulin as prescribed last week and states his appointment to establish care with a new PCP is in about a month. His blood sugars continue to be elevated over 200 however. 06/16/16. Seen by Rashad Dupont PA-C. The patient reports continued blood sugars above 300 and continued drainage from his left plantar foot diabetic ulcer. 06/09/16. Seen by Rashad Dupont PA-C. The patient reports that he has been leaving his leg dependant when he has been sleeping and is noted to have experienced weight gain since his last appointment. He continues to have very high blood sugars and now has an appointment with primary care to establish care. 06/06/16. Seen by Dr. Max. The patient does not report pain nor significant drainage associated with the chronic left foot diabetic ulcer over the past week. Also, his blood sugars are again over 200 today. 05/29/16. Seen by Dr. Max. The patient does not report pain nor significant drainage associated with the chronic left foot diabetic ulcer over the past week. Although he told the staff that he's discussed his diabetes management with a PCP he tells me has not yet re- established with a PCP as we've recommended so has not been checking blood sugars nor taking diabetes medication. 05/22/16. Seen by Dr. Max. The patient does not report pain nor significant drainage associated with the chronic left foot diabetic ulcer over the past week. 05/19/16. Seen by Rashad Dupont PA-C. The patient reports increased drainage from his chronic left foot diabetic ulcer since his last evaluation. The patient is not wearing his BAD RIVER BAND boot to offload his ulcer and he reports very high blood sugars in the previous week. The patient continues to be homeless and reports that he was focused on staying warm during the past few days. 05/12/16. Seen by Rashad Dupont PA-C. The patient reports intermittent compliance with his levaquin usage and has not seen [facility] yet for assessment and fitting of his BAD R[place] BAND boot. In addition he reports a new ulcer on his left 5th toe which began a couple days ago. 05/08/16. Seen by Dr. Max. The patient does not report significant drainage nor pain associated with the chronic left plantar foot diabetic ulcer. He continues on antibiotics for an associated wound infection and does not report adverse side effects.He is also not checking his blood sugars routinely and is currently homeless and living in his car. 05/05/16. Seen by Rashad Dupont PA-C. The patient returns to our clinic after spending 12 weeks at [facility]. He reports that his left plantar foot diabetic ulcer never fully healed. He also reports that he has a B[place] R[place] BAND boot that he thinks still fits but is not wearing it. Currently he is on Bactrim and Cipro for an ulcer infection and reports missing doses frequently of these medications. 07/17/[address] Max. The patient does not report increased drainage, swelling, or erythema associated with his left plantar foot diabetic ulcer. He continues to offload the foot with a cane and wheelchair and is compliant with his antibiotic and diabetes regimens without reporting adverse side effects. 07/13/14 The patient's recent wound culture grew MRSA sensitive to doxycycline. He does not report increased pain, swelling, or drainage associated with the left plantar foot diabetic ulcer nor does he report fever, chills, or shakes as he has previously. He's compliant with his antibiotic and diabetes medications and states his blood sugars are around 150- 200. He's also met with his new PCP in the past week to establish care. 07/06/14 The patient does not report pain in either foot nor fever or chills. He states he's been compliant with his doxycycline and ciprofloxacin regimen as well as his diabetes regimen. He's not yet established with a PCP but has an appointment in October with a provider in [place]. He also states he does not leave his car very often and so has not had a need to use the wheelchair for offloading. 07/03/14 The patient reports that he is taking his antibiotics regularly now and does not report shakes fever or chills. He would prefer a PCP in [place] to one in [place] if he is not able to see someone in town. 06/29/14 The patient states he's been mostly compliant with his antibiotics that now includes doxycycline plus cipro. He feels the left foot swelling and erythema are beginning to improve. He's also taking a lower dose of metformin along with his glipizide and he does not report 'shakes' as he did at the last visit. 06/26/14 The patient states he experienced some intermittent 'shakes' a couple of day ago and felt it was do to his metformin so he stopped taking it. He does not report fever, sweats, or chills however. He says he's been taking cipro as prescribed but he feels the left foot swelling and erythema are slowly progressing. He also admits to not using his wheelchair or can as recommended and walking a good bit over the weekend. 06/22/14 The patient's new to our clinic but was seen twice on consult as an inpatient over the past month. He's a homeless gentleman with a large left 1st MTPJ plantar ulcer and a smaller right lateral 5th MT ulcer. He's now on a 6 week course of ciprofloxacin based on his MRI that showed possible early osteomyelitis in the left 1st MTPJ sesmoid bone. Deep wound cultures from 06/16/14 grew Group A Streptococcs. He feels the swelling and erythema have improved in the left forefoot as has the drainage. He also states his subjective fevers have resolved. He's a newly diagnosed diabetic and is now on Metformin and Glipizide with an A1c 10.2 on 05/17/14 and he states he's compliant with his medication regimen. His arterial doppler showed only mild atherosclerotic disease in the right SFA. Of note, he's not yet established with a PCP at the [facility] and he states he use a wheelchair for mobilizing except for very short walks when he uses a cane to help offload the left foot. Family History This information was obtained from the patient Cancer - Father Social History This information was obtained from the patient Current every day smoker - 1 pack per day, Alcohol Use - none, Caffeine Use - rare, Children - 2 sons, Homeless, Lives in [facility], Marital Status - single, Occupation - Unemployed, Substance Abuse - Patient denies substance abuse., Tobacco Use (deprecated) Past Medical History This information was obtained from the patient Patient has a medical history of: Diabetes, type II (A1c > 14 05/23/16; 10.2 06/06/14) Osteomyelitis (left 1st MTPJ sesmoid) Homeless Diabetic foot ulcer - 06/06/2014 (left 1st MTPJ; Rivera grade III with osteomyelitis; MRSA positive deep wound culture 07/11/14) Diabetic foot ulcer - 06/22/2014 (right 5th MT; Rivera grade I) Surgical History This information was obtained from the patient Patient has a surgical history of: Left ankle fracture with 3 pins and 3 screws (2 years ago ) Carpal tunnel surgery bilateral hands (4 years ago) Hernia repair (15 years ago) Complaints and Symptoms This information was obtained from the patient Patient complains of: General Notes: I have reviewed and concur with the Review of Systems and Past Family Social History documents completed by the clinician, I have reviewed and concur with the Wound Assessment document completed by the clinician Integumentary (Hair/Skin/Nails): Open Sore Musculoskeletal: Assistive Devices Neurological: Abnormal Gait, Loss of Protective Sensation Prior Wound History: Drainage, Erythema, Malodor Psychiatric: Depression Patient denies complaints or symptoms related to: Cardiovascular (Central): Irregular heart beat Cardiovascular (Central/Peripheral): Lower extremity (leg) resting pain, Lower extremity (leg) swelling Cardiovascular (Peripheral) Constitutional Symptoms (General Health): Chills, Fever, Marked Weight Change Ear/Nose/Mouth/Throat: Hearing Loss / Aid Gastrointestinal (GI): Nausea / Vomiting, Stomach/abdominal pain Hematologic/Lymphatic: Bleeding / Clotting Disorders, Bleeding Tendency Musculoskeletal: Joint Swelling, Muscle Weakness Prior Wound History: Bleeding, Pain Psychiatric: Memory Loss Respiratory: Oxygen Use, Shortness of Breath OBJECTIVE Constitutional BP elevated; Low grade fever; Alert and in no distress. Dishelved. Height/Length : 73 in (185.42 cm), Weight: 259 lbs (117.73 kgs), BMI: 34.2, Temperature: 99.2 ?F ( 37.33 ?C), Pulse: 89 bpm, Respiratory Rate: 18 breaths/min, Blood Pressure: 137/95 mmHg, Capillary Blood Glucose: 268 mg/dl, Pulse Oximetry: 96 %. Vital Signs Notes: Glucose per patient Cardiovascular: Affected extremity exhibits no peripheral edema or cyanosis, is warm, and is well perfused. Capillary refill is less than 2 seconds. Integumentary (Hair, Skin) No periwound erythema, warmth, or significant drainage. No periwound rashes appreciated or noted otherwise.. Refer to appropriate clinician wound documentation for this visit; left foot ulcer extends to subcut with base partially covered with pink granulation, remainder fibrin and slough; right 5th toe ulcer extends to dermis. Maceration and callus present in the left foot periwound area. Wound #5 Left, Plantar Foot is a chronic Rivera Grade 3 Diabetic Ulcer and has received a status of Not Healed. Subsequent wound encounter measurements are 1cm length x 0.4cm width x 0.4cm depth, with an area of 0.4 sq cm and a volume of 0.16 cubic cm. No tunneling has been noted. No sinus tract has been noted. Undermining has been noted at 12: 00 and ends at 12:00 with a maximum distance of 0.3cm. There is a small amount of serosanguineous drainage noted which has no odor. The patient reports a wound pain of level 0/ 10. The wound margin is callus. Wound bed has Yes epithelialization, No eschar, No slough, Yes bright red, firm granulation. The periwound skin moisture is normal. The periwound skin color is normal. The periwound skin exhibited: Callus. The periwound skin did not exhibit: Brawny Induration, Edema, Excoriation, Induration, Crepitus, Fluctuance, Friable, Rash. The temperature of the periwound skin is WNL. Periwound skin does not exhibit signs or symptoms of infection. Local Pulse is Palpable. Wound #6 Right Fifth Toe is an acute Rivera Grade 1 Diabetic Ulcer and has received a status of Not Healed. Subsequent wound encounter measurements are 0.2cm length x 0.2cm width x 0.1cm depth, with an area of 0.04 sq cm and a volume of 0.004 cubic cm. No tunneling has been noted. No sinus tract has been noted. No undermining has been noted. There is a small amount of sanguineous drainage noted which has no odor. The patient reports no wound pain due to the wound being insensate. The wound margin is callus. Wound bed has Yes epithelialization, No eschar, No slough, Yes pink, firm granulation. The periwound skin moisture is normal. The periwound skin color is normal. The periwound skin exhibited: Callus. The temperature of the periwound skin is WNL. Periwound skin does not exhibit signs or symptoms of infection. Local Pulse is Palpable. Neurological: Cranial nerves grossly intact with symmetric function normal by informal observation.. ASSESSMENT Active Problems ICD-10 (Encounter Diagnosis) L97.522 - Non-pressure chronic ulcer of other part of left foot with fat layer exposed (Encounter Diagnosis) E11.621 - Type 2 diabetes mellitus with foot ulcer (Encounter Diagnosis) L97.511 - Non-pressure chronic ulcer of other part of right foot limited to breakdown of skin PROCEDURES Wound #5 Wound #5 (Diabetic Ulcer) is located on the left, plantar foot. A skin/ subcutaneous tissue level surgical debridement with a total area debrided of 0.4 sq cm was performed by Jorge Luis Max MD. Subcutaneous was removed along with devitalized tissue: callus and slough. The following instrument(s) were used: curette. No anesthetic was required due to loss of sensation. A time out was conducted prior to the start of the procedure. A minimal amount of bleeding was controlled with n/a. The procedure was tolerated well with a pain level of 0 throughout and a pain level of 0 following the procedure. Post Debridement Measurements: 1cm length x 0.4cm width x 0.5cm depth; with an area of 0.4 sq cm and a volume of 0.2 cubic cm; Wound #6 Wound #6 (Diabetic Ulcer) is located on the right fifth toe. A skin/ subcutaneous tissue level surgical debridement with a total area debrided of 0.04 sq cm was performed by Jorge Luis Max MD. Subcutaneous was removed along with devitalized tissue: callus and exudate. The following instrument(s) were used: curette. No anesthetic was required due to loss of sensation. A time out was conducted prior to the start of the procedure. A minimal amount of bleeding was controlled with n/a. The procedure was tolerated well with a pain level of 0 throughout and a pain level of 0 following the procedure. Post Debridement Measurements: 0.2cm length x 0.2cm width x 0.2cm depth; with an area of 0.04 sq cm and a volume of 0.008 cubic cm; Additional Information Muscle fascia or bone removed and sent to pathology?: No Muscle fascia or bone removed and sent to pathology?: No PLAN Wound Orders: Wound #5 Left, Plantar Foot Cleanser Cleanse Wound: - Normal Saline and gauze. May Shower. - Please avoid getting tap water in wound or on dressing. Cover while in shower. Topical Treatments Antibiotic/Antimicrobial Ointment/Cream. - Iodosorb Dressings Cover and secure with: - Small Covrsite (or equivalent island dressing). Change Dressing: - Every other day. Wound #6 Right Fifth Toe Cleanser Cleanse Wound: - Normal Saline and gauze. May Shower. - Please avoid getting tap water in wound or on dressing. Cover while in shower. Dressings Primary dressing: - Foam Cover and secure with: - Tape Change Dressing: - Every other day Additional Orders: Off-Loading Keep weight off: - Left foot. Follow-Up Appointments Return Appointment: - - One week. Other information: If you develop fever, chills, increased pain, drainage, redness or swelling please call our office. If after hours, respond to the ER. Should you experience any significant changes in your wound(s) or have any questions regarding your home care instructions please contact the wound center @ [phone]. If after hours, contact your primary care physician or go to the hospital emergency room. Scribing Attestation I attest, as the nurse, that I scribed these orders for the physician. I've reviewed the clinician's documentation and agree with the evaluation and plan as written. In addition, the patient's ulcer demonstrates evidence of non-viable devitalized tissue which will continue to benefit from sharp debridement to help promote granulation and expedite healing. Electronic Signature(s) Signed By: Date: Jorge Luis Max MD 12/17/2017 08:14:12 Entered By: Jorge Luis Max on 12/17/2017 07:54:16
== END ==
PROVIDERS: PCP Family Medicine; Visit Provider Internal Medicine
DX: E11.621 Type 2 diabetes mellitus with foot ulcer (principal); L97.522 Non-pressure chronic ulcer of other part of left foot with fat layer exposed; L97.511 Non-pressure chronic ulcer of other part of right foot limited to breakdown of skin; L84 Corns and callosities
CPT/HCPCS: 11042

== ENCOUNTER 2017-12-25 09:00 | Outpatient (RCR) | payer OTHER, MEDICAID, SELFPAY ==
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
--- NOTE | 2017-11-12 16:19 | PT.OPPOC ---
Current Diagnoses Type 2 diabetes mellitus with diabetic polyneuropathy (11/12/17) Type 2 diabetes mellitus with hyperglycemia (11/12/17) Unspecified abnormalities of gait and mobility (11/12/17) Weakness (11/12/17) FCI (current) use of insulin (11/12/17) Provider Visit Care Team Role Provider Type Madeline Morales DO Attending Provider Physician Primary Care Provider Specialty: [facility] Address: [address] [place] [address], [facility] Email: [email or web address] Plan Of Care PT-OP-T Assessment and Plan Start: 11/12/17 08:11 Freq: Status: Active Protocol: Document 11/12/17 08:15 AMB (Rec: 11/12/17 16:12 AMB [email or web address]) Physical Therapy Assessment Rehab Potential Rehabilitation Potential Fair Evaluation Complexity Number of Personal Factors/Comorbidities 3 or More Number of Body Systems Impaired 4 or More Clinical Presentation at Evaluation Unstable Impairments Impairments Activity Tolerance Balance Gait Integument Pain ROM Strength Goals Three Impairment Pain Mcc Goal (LTG) The patient will rate his right knee and right back pain at 4/10 pain or less. LTG Duration 12 weeks Two Impairment Balance Short Term Goal (STG) The patient will maintain stride stance balance for 1 minute without LOB. STG Duration 6 weeks Mcc Goal (LTG) The patient will show improved gait and balance by scoring 16/24 on the DGI or higher. LTG Duration 12 weeks One Impairment Strength Short Term Goal (STG) The patient will be independent with a HEP to improve his LE and core strength. STG Duration 6 weeks Planer Operator / Grader Goal (LTG) The patient will show improved LE strength by moving from sit to stand from his wheelchair without UE support. LTG Duration 12 weeks Assessment Summary Assessment Currently, the patient's wound care doctor does not want him weightbearing on his left foot. This will make gait and balance training difficult. We will progress his HEP with supine and sitting exercises to improve his R LE strength and decrease his pain. His wound care doctors were ok with him walking for an evaluation of his gait balance . His DGI score of 11 does put him at a high risk of falling, however he denies any recent falls, he stats because he has not been walking at all. As his wound heals, he will need skilled therapy to progress his gait and balance safely, but we will need to continue to communicate with wound care for guidance regarding appropriate weightbearing. Physical Therapy Plan Frequency and Duration Frequency of Treatment 1x/Week Duration of Treatment 12 weeks Plan of Care Start Date 11/12/17 Plan of Care End Date 02/04/18 Therapeutic Interventions Therapeutic Interventions Balance Training Gait Training Home Exercise Program Manual Therapy Neuromuscular Re-education Self-Care/Home Management Therapeutic Activities Therapeutic Exercises Modalities Cold Pack/Ice Massage Electric Stimulation Hot Packs Next Visit Focus/Plan Next Note Type Treatment Note Next Visit Plan Assess pt's w/c mobility- make sure pt is able to propel w/c with his heel rather than his forefoot. Address R LE and back pain. Reinforce not weightbearing through left forefoot. Plan of Care Dates Plan of Care Start Date 11/12/17 Plan of Care End Date 02/04/18 Please Sign and Return: I have reviewed this Plan of Care and certify that the skilled therapy services above are required to meet the patient?s needs. Physician Signature Date Printed Name and Credentials Clinical Instructor Signature Printed Name and Credentials
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
== END 2018-03-01 11:48 ==
LOC: PHYS 09:00
PROVIDERS: PCP Family Medicine; Visit Provider Family Medicine
DX: R26.9 Unspecified abnormalities of gait and mobility (principal); R53.1 Weakness; E11.42 Type 2 diabetes mellitus with diabetic polyneuropathy; E11.65 Type 2 diabetes mellitus with hyperglycemia; Z79.4 Long term (current) use of insulin
CPT/HCPCS: 97014; 97032; 97110; 97116; 97140; 97163; G0283

== ENCOUNTER → 2017-12-25 09:19 | Outpatient (CLI) | payer OTHER, MEDICAID, SELFPAY ==
--- NOTE | 2017-12-25 | OV.WND_ITS ---
Progress Note Details Patient Name: David Givens Patient Number: [id number] PatientPatientDate: 12/25/2017 Clinician: Krystle Grey Physician / Pharmacovigilance Safety Expert: Jorge Luis Max SUBJECTIVE Chief Complaint This information was obtained from the patient Diabetic ulcers on both feet. Allergies Vicodin (Reaction: itching), codeine (Severity: Mild, Reaction: stomach upset) HPI This information was obtained from the patient 12/25/17. Seen by Dr. Max. The patient does not report drainage or pain associated with chronic left foot diabetic ulcer nor the lateral right 5th toe since his last visit. 12/16/17. Seen by Dr. Max. The patient does not report drainage or pain associated with chronic left foot diabetic ulcer nor the lateral right 5th toe since his last visit. 12/09/17. Seen by Dr. Max. The patient does not report drainage or pain associated with chronic left foot diabetic ulcer nor the lateral right 5th toe since his last visit. He's now on levofloxacin for the E. coli positive wound culture taken from the left foot ulcer without reporting adverse side effects. His blood sugars continue to be elevated at 245 today and he's not had regular follow up with his PCP regarding this issue despite being encouraged to on many occasions. 12/01/17. Seen by Dr. Max. Mansoor. The patient does not report drainage or pain associated with chronic left foot diabetic ulcer since last visit however he reports a new ulcer over the lateral right 5th toe. He's unsure of how long this has been present though and does not report pain or significant drainage. He's also scheduled to see his PCP within the next two weeks to discuss his chronically elevated blood sugars. 11/26/17. Seen by Dr. Max. The patient does not report drainage or pain associated with chronic left foot diabetic ulcer since last visit. He's wearing his regular street shoes and uses a wheelchair much of the time to offload the foot. 11/19/17. Seen by Dr. Max. The patient does not report drainage or pain associated with chronic left foot diabetic ulcer since last visit. Of note, the patient's blood sugar today is 395 and despite his reported attempt recently to work with his PCP on improving his blood glucose control. 11/12/17. Seen by Dr. Max. The patient does not report drainage or pain associated with chronic left foot diabetic ulcer since last visit. 11/04/17. Seen by Dr. Max. The patient does not report drainage or pain associated with chronic left foot diabetic ulcer since last visit. 10/27/17. Seen by Dr. Max. The patient returns today with recurrence of the left plantar foot 1st MTPJ diabetic foot ulcer that was very chronic but eventually healed in May of this year. He does not report pain or drainage associated with this. He was seen in August also but did not follow up. His blood sugars continue to be elevated over 300 and he states his Lantus is being increased by his PCP. 09/04/17. Seen by Rashad Dupont PA-C. The patient reports minimal drainage from his left foot ulcer. His blood sugars continue to be >150 on most days. 08/28/17. Seen by Dr. Max. The patient only picked up his levofloxacin 3 days ago that was prescribed for the recent E. coli culture taken from the left plantar foot diabetic ulcer. He does not report adverse side effects nor significant drainage from the ulcer. Of note , his blood sugar today is again over 300 and he states he has rhubarb pie last night. He has an appointment with is PCP next week to discuss adjusting his dose of Lantus. 08/21/17. Seen by Dr. Max. The patient's wound culture taken from the recurrent left 1st MTPJ diabetic ulcer grew E. coli and Streptococcus and he's applying topical gentamicin as recommended. The nurse reports maceration and drainage on his dressing today and his blood sugar is again over 300. 08/17/17. Seen by Dr. Max. The patient returns today with recurrence of the left plantar foot 1st MTPJ diabetic foot ulcer that was very chronic but eventually healed in May of this year. He states a callus has been accumulating and it started to drain last week. He does not report pain in the foot nor swelling but states the 1st toe appeared red yesterday however this has now resolved. He uses a wheelchair for offloading and his blood sugars continue to be over 300. He has a history of poor compliance with his diabetes management and resides in assisted living. 06/02/17. Seen by Dr. Max. The patient does not report drainage or pain associated with chronic left foot diabetic ulcer since last visit. 05/26/17. Seen by Rashad Dupont PA-C. The patient does not report increased drainage from his left foot diabetic ulcer. 05/12/17. Seen by Dr. Max. The patient does not report pain nor increased drainage associated with the chronic left plantar foot diabetic ulcer. He also continues on doxycycline for chronic osteomyelitis of the left MTPJ. 05/05/17. Seen by Rashad Dupont PA-C. The patient reports that he will be moving into [facility] this Thursday. He continues to have high blood sugars and is reportedly compliant with his doxycycline (though he thought he was taking levaquin) and he does not report increased drainage. 04/28/17. Seen by Rashad Dupont PA-C. The patient reports having to walk more than normal because his truck ran out of gas this week. He has not noted any drainage from his left foot diabetic ulcer. He continues on Doxycycline for chronic osteomyelitis. His blood sugars have been >200 this week. Of note, he is wearing regular shoes and does not own shoes that are custom fitted to his foot deformities, which have been present for several years. 04/21/17. Seen by Rashad Dupont PA-C. The patient reports minimal drainage from his left 1st toe diabetic ulcer. Today he reports that he believes he was taking Levaquin recently and will be out of antibiotics today. His most recent X-ray of the left foot shows worsening chronic osteomyelitis. 04/18/17. Seen by Rashad Dupont PA-C. The patient reports decreased drainage from his chronic left 1st toe ulcer. He is nearly out of his Augmentin, which he was taking for his ulcer infection. 04/13/17. Seen Dr. Max. The patient returns to our clinic, after being seen on Thursday, due to increased swelling and erythema of the left first toe over the weekend. His first MTPJ diabetic ulcer has improved considerably over the past few weeks and he has been taking Augmentin for an associated group B strep positive wound culture taken last week. He does not report fevers or pain in the foot and his blood sugars continue to be significantly elevated. 04/10/17. Seen by Rashad Dupont PA-C. The patient reports continued redness and warmth despite taking Augmentin for his strep positive ulcer infection of the left 1st toe. He reports missing some doses of the antibiotic however. His blood sugars have been high since he ran out of insulin a few days ago. He is currently still homeless with housing pending and is able to stay in a local motel on most nights. 04/07/17. Seen by Dr. Max. The patient does not report pain nor increased drainage associated with the chronic left plantar foot diabetic ulcer. He's now on Augmentin again for cellulitis of the left 1st toe diagnosed at his last visit and his wound culture grew Group B Strep. He feels the swelling decreased and he does not report fevers, pain, or adverse side effects of the antibiotics. 04/03/17. Seen by Dr. Max. The patient does not report pain nor decreased drainage associated with the chronic left plantar foot diabetic ulcer however he does feel that his left first toe is red and swollen today. He does not report fevers nor feeling on well and has been off antibiotics were treating chronic osteomyelitis of the first MTPJ for at least a week. His blood sugars continue to be persistently elevated and despite establishing with primary care is provider months ago he has not been able to improve upon his diabetes management. 03/27/17. Seen by Dr. Max. The patient does not report increased drainage or pain associated with the chronic left plantar foot diabetic ulcer since his last visit. His wound culture from the last visit grew group B streptococcus and he's not currently on antibiotics. 03/24/17. Seen Dr. Max. The patient is here for a change of his wound VAC however the staff report increased maceration around the left plantar foot diabetic ulcer. He has now been off of antibiotics for about a week and has been treated for chronic osteomyelitis for the past few months. 03/20/17. Seen by Dr. Max. The patient states his wound VAC stopped working earlier in the week and he has not picked up his prescription of Augmentin that was to treat chronic osteomyelitis associated with the left plantar foot diabetic ulcer. Of note, his blood sugar today is again very elevated at 386. 03/11/17. Seen by Dr. Max. The patient states his wound VAC became dysfunctional 2 days ago. He continues on Augmentin for chronic osteomyelitis associated to chronic left plantar foot diabetic ulcer. He does not report pain nor significant drainage from the ulcer nor side effects from antibiotics. 03/06/17. Seen by Dr. Max. The patient does not report increased drainage or pain associated with the chronic left plantar foot diabetic ulcer since his last visit. He states he's continuing on Augmentin for underlying chronic osteomyelitis of the 1st MTPJ as recommended but will run out of antibiotics early next week. 02/27/17. Seen by Dr. Max. The patient does not report pain or increased drainage associated with chronic left plantar foot diabetic ulcer since last visit. His wound VAC was changed to a SID and he tolerated this well without any issues. He continues on Augmentin for underlying chronic osteomyelitis and his blood sugar is again elevated over 300 today despite establishing with primary care and being started on his insulin and metformin. 02/24/17. Seen by Dr. Max. The patient does not report increased pain nor drainage associated with the chronic left plantar foot diabetic ulcer. His blood sugars are again near 400 however he has seen his primary care provider and has been started on insulin and metformin which he will picker and sorter load and unload from the pharmacy today. He continues on antibiotics also for underlying chronic osteomyelitis of the left foot. 02/20/17. Seen by Dr. Max. The patient does not report increased pain nor drainage associated with the chronic left plantar foot diabetic ulcer. Of note he is homeless and his mobility has been limited due to the winter weather recently. He is a bit noncommittal regarding adherence to his antibiotic regimen that's treating underlying chronic osteomyelitis. His blood sugars again are over 300 and he has a history of noncompliance regarding his diabetes management. 02/17/17. Seen by Rashad Dupont PA-C. The patient reports no increase in drainage from his diabetic foot ulcer of the left foot. He reports that his blood sugar is high today because he drank several slurpees from [employer] last night. 02/13/17. Seen by Dr. Max. The patient states that there has been increased drainage associated with the chronic left plantar foot diabetic ulcer over the past few days. The staff also report a significant malodor today. He admits to missing a few days worth of antibiotics as he's been feeling unwell over the past week with an upper respiratory tract infection.He is also scheduled appointment to establish with his primary care provider and of note his blood sugar is again significantly elevated at 293 today. 02/06/17. Seen by Dr. Max. The patient does not report increased drainage nor pain associated with the chronic left plantar foot diabetic ulcer since his last visit. He continues on Augmentin for chronic osteomyelitis of the foot. He also has an appointment with [facility] at the end of the month to address his homeless situation and will establish with his primary care provider in the first week in February to discuss management of his poorly controlled diabetes and other medical issues. 02/03/17. Seen by Rashad Dupont PA-C. The patient reports stable drainage from his left foot diabetic ulcer with underlying chronic osteomyelitis. He is about to finish his current prescription for osteomyelitis and notes no pain or other new symptoms related to this condition. His blood sugars continue to be >200 and he has not yet made an appointment with his PCP to address this. He says he is running out of insulin and has no refills. He continue to be homeless. 01/30/17. Seen by Dr. Max. The patient does not report increased drainage or pain associated with the chronic left plantar foot diabetic ulcer since his last visit. He continues on antibiotics for underlying chronic osteomyelitis and is her primary side effects. He also has an appointment within the next 3 weeks with his establishing primary care provider and we'll be addressing his diabetes management at that time. He also continues to reside in a motel while he is awaiting a decision on possible long-term placement in a attempt to resolve his homeless situation 01/23/17. Seen by Dr. Max. The patient is a report increased drainage from pain associated with the chronic left plantar foot diabetic ulcers since last visit. He is supposed to be continued on Augmentin for associated underlying chronic osteomyelitis however he admits that he has missed a few doses recently and he is establishing with new primary care provider. He also has a geriatric social work professor with him today assisting with his housing and healthcare needs. Of note, the patient admits to having a degree of cognitive dysfunction that frequently affects his ability to manage his diabetes medications, antibiotics, and maintain a stable housing situation. 01/20/17. Seen by Rashad Dupont PA-C. The patient reports continued purulent drainage from his left foot diabetic ulcer. He continues to take antibiotics for his chronic osteomyelitis irregularly and reports that his blood sugars continue to be above 200 most days. He remains homeless though states he may have a lead on some housing assistance. Due to his homelessness he walks on his foot more than is recommended. 01/16/17. Seen by Dr. Max. The patient does not report increased drainage associated with the chronic left plantar foot diabetic ulcer. The staff report however that he has missed a few doses of his antibiotics since treating underlying chronic osteomyelitis. Of note, he is homeless and has been sleeping in his car which is relevant in that the temperatures approached freezing overnight and he's not wearing socks other than the non- skid socks we've provided at the clinic. 01/09/17. Seen by Rashad Dupont PA-C. The patient reports increased drainage in his SNAP canister and he is nearly completed with his course of Cipro. His blood sugars continue to be above >150 when he takes them. 01/06/17. Seen by Rashad Dupont PA-C. The patient reports intermittently taking his antibiotics and has been unable to completely offload his ulcer due to being homeless. He reports that most blood sugars in the past few days have been over 200. 01/02/17. Seen by Dr. Max. The patient does not report increased pain or drainage associated with the chronic left plantar foot diabetic ulcer however the wound VAC leaked earlier in the week and was removed. The patient is noncommittal regarding the use of his antibiotics treating chronic osteomyelitis of the left first MTPJ also. He's not report fevers or feeling unwell is also noncommittal regarding 100% offloading that's been recommended. 12/30/16. Seen by Rashad Dupont PA-C. The patient reports intermittent compliance with his antibiotics. He admits he likes to take two tablets for the first dose and also admits to accidentally skipping doses. His foot ulcer has had increased drainage and increased odor. 12/26/16. Seen by Dr. Max. The patient is now taking ciprofloxacin to treat the recent Pseudomonas positive wound culture taken from the chronic left plantar foot diabetic ulcer. He does not report adverse side effects nor increased pain, swelling, or drainage associated with the ulcer. His blood sugars continue to be over 300 and he has not yet followed up on our recommendation to discuss this with his primary care provider to adjust his insulin. 12/23/16. Seen by Rashad Dupont PA-C. The patient reports he has still not been able to obtain his Levaquin to treat his left foot diabetic ulcer infection. Our office has continued to try and facilitate the prior authorization of this medication without success. The patient does not report fever or chills but does report that drainage has soaked through his sock. 12/19/16. Seen by Dr. Max. The patient does not report increased pain or drainage associated with the chronic left plantar foot diabetic ulcers since his last visit. He is started on levofloxacin for the new pseudomonas positive wound culture has not been able to picker and sorter load and unload the antibiotic due to insurance prior authorization issues. 12/16/16. Seen by Dr. Max. The patient does not report increased pain or drainage associated with the chronic left plantar foot diabetic ulcer since last visit. His wound VAC became dysfunctional over the weekend and he presented to the clinic yesterday at which time it was removed. He states he continues to take his antibiotics for chronic osteomyelitis of the left first MTPJ however we are unable to confirm how many tablets he has left and is been rather noncompliant with this in the past. His blood sugars also continue to be significantly elevated. 12/12/16. Seen by Dr. Max. The patient does not report pain nor increased drainage associated with the chronic left plantar foot diabetic ulcer and he continues on antibiotics to treat associated chronic osteomyelitis of the left 1st MTPJ. 12/09/16. Seen by Dr. Max. The patient reports drainage in his shoe and sock today associated with the chronic left plantar foot diabetic ulcer. He states that the wound VAC however appear to be sealed and operating properly over the past few days. He is on amoxicillin for chronic osteomyelitis of the left first MTPJ and complains of some GI upset. 12/05/16. Seen by Dr. Max. The patient is now on amoxicillin for the recent Streptococcus positive wound culture taken as last visit. This is also treating chronic osteomyelitis of the left foot. He does not report adverse side effects nor pain or increased drainage associated with chronic left plantar foot diabetic ulcer. He is also tolerating negative pressure wound therapy without difficulty. 12/02/16. Seen by Dr. Max. The patient presented to clinic yesterday for a nurse visit following a wound vac dysfunction the previous day. He'd left the foam dressing in place however for the previous 24 hours despite being advised to remove it within 2 hours of it not working. He does not report pain at the chronic left diabetic foot ulcer site and he's been off of his antibiotics for 1-2 days (he's unsure of when he stopped taking them) and states he has a few each of the levofloxacin and Augmentin tablets that have been prescribed recently to treat underlying chronic osteomyelitis of the left foot. 11/28/16. Seen by Dr. Max. The patient does not report pain nor increased drainage associated with the chronic left plantar foot diabetic ulcer. He should've completed his course of levofloxacin by now but states that he has a couple of tablets left over. In relation to this he has also not taken his prior antibiotic prescriptions as scheduled. 11/25/16. Seen by Dr. Max. The patient does not report pain nor increased drainage associated with the chronic left plantar foot diabetic ulcer. He has nearly completed his course of levofloxacin that is treating underlying chronic osteomyelitis of the foot and he does not report adverse side effects. Also, his blood sugars are again over 300 and he states he does have an appointment next week week with his primary care provider to address his diabetes. 11/21/16. Seen by Dr. Max. The patient does not report pain in the left foot nor increased drainage associated with chronic plantar diabetic foot ulcer since his last visit. He continues on levofloxacin for chronic osteomyelitis of the left foot and does not report adverse side effects nor fevers or feeling unwell today. 11/18/16. Seen by Dr. Max. The patient does not report pain in the left foot nor increased drainage associated with chronic plantar diabetic foot ulcer since his last visit. He found the levofloxacin that he lost and restarted this over the weekend. He does not report adverse side effects nor fevers or feeling unwell today. 11/14/16. Seen by Dr. Max. The patient's left foot wound VAC fell off yesterday. He also states that he lost his levofloxacin that's treating chronic osteomyelitis of the left foot but he has started taking the Augmentin that he had leftover from his last prescription. He does not report increased drainage associated with a chronic left plantar foot diabetic ulcer however does report some pain at the site. 11/11/16. Seen by Dr. Max. The patient does not report increased drainage associated with a chronic left plantar foot diabetic ulcer and he continues on levofloxacin for underlying chronic osteomyelitis of the left first MTPJ. He does not reporting adverse side effects of antibiotics, fevers, or feeling unwell. His blood sugars continue to be significantly elevated and he is noncommittal regarding checking them and taking his insulin as prescribed. He also has not seen his primary care provider in the last few months as we recommended. 11/07/16. Seen by Dr. Max. The patient is now on levofloxacin and reports some nausea since starting this. He does not report significant drainage or pain associated with chronic left plantar foot diabetic ulcer however since his last visit. 11/04/16. Seen by Dr. Max. The patient states that he completed his Augmentin 2 days ago and he does not report increased drainage or pain associated with the chronic left plantar foot diabetic ulcer nor the underlying chronic osteomyelitis. His recent wound culture grew Klebsiella which is sensitive to Augmentin and he does not report fevers, feeling unwell, or adverse side effects to the antibiotics. 10/31/16. Seen by Dr. Max. The patient's wound VAC began leaking soon after his last visit and was removed at that time. He continues on Augmentin for chronic osteomyelitis associated with the chronic left plantar foot diabetic ulcer and feels that the pain has resolved over the past week. 10/28/16. Seen by Dr. Max. The patient states that the wound VAC started leaking yesterday he presented to the clinic and it was removed with the left plantar foot ulcer filled with alginate. He states he continues to take his antibiotics for chronic osteomyelitis of the foot and does not report adverse side effects. His blood sugars continue to be consistently over 200 however have improved somewhat as they were typically over 300 previously. He does not report fevers, pain in the foot, nor feeling unwell in general. 10/24/16. Seen by Dr. Max. The patient states he has restarted taking his antibiotics as prescribed and he does not report significant drainage associated with chronic left foot diabetic ulcer since his last visit. He also reports the pain has improved and he is not reporting fevers or feeling unwell. He is taking antibiotics for chronic osteomyelitis associated with the ulcer. 10/21/16. Seen by Dr. Max. The patient is not very engaging today and he is noncommittal regarding whether he is taking his antibiotics as prescribed. His recent wound culture grew Klebsiella sensitive to Augmentin however he states that his left foot pain associated with the diabetic ulcer and chronic osteomyelitis has increased over the past week. He does not report fevers however nor feeling unwell and his negative pressure wound therapy was held at last visit due to deterioration of the ulcer and concern for change of infection. 10/17/16. Seen by Dr. Max. The patient reports some pain associated with the chronic left plantar foot diabetic ulcer since his last visit staff report increased maceration in the nunu-ulcer area. He does not report fevers however states that he's not been taking his antibiotic entirely as prescribed. His blood sugars are over 300 again today he states he has been offloading the foot as recommended. 10/14/16. Seen by Dr. Max. The patient reports being more active on his feet the past few days despite wearing a snap negative pressure wound dressing. Does not report increased drainage associated with the left plantar foot diabetic ulcer and continues on Augmentin for chronic osteomyelitis of the foot. His blood sugars are improving somewhat into the 200s and he states he is checking these and taking insulin as recommended. He has not yet followed up with his primary care provider as recommended however in terms of his diabetes management. 10/10/16. Seen by Dr. Max. The patient has restarted his Augmentin as recommended that's treating chronic osteomyelitis of the left foot. He does not report increased drainage associated with the left plantar foot diabetic ulcer since his last visit. His blood sugars continue to be significantly elevated and he has not yet scheduled and appointment with his primary care provider to discuss this. 10/07/16. Seen by Dr. Max. The patient does not report increased drainage associated with the chronic left foot diabetic ulcer. He continues on negative pressure wound therapy and states he forgot to picker and sorter load and unload his antibiotics that are treating chronic osteomyelitis in the foot. His blood sugars continue to be significantly elevated and is noncommittal regarding checking his blood sugars and taking his insulin routinely. 10/03/16. Seen by Dr. Max. The patient states he is nearly out of antibiotics that have been treating chronic osteomyelitis the left foot. He does not report any problems regarding the overlying diabetic foot ulcer nor negative pressure wound therapy. Also, his blood sugars 381 today and has been significantly elevated for months. This is despite his recent statement that he's been checking blood sugars and taking his insulin routinely. 09/30/16. Seen by Dr. Max. The patient does not report significant drainage or other acute issues associated with the chronic left plantar foot diabetic ulcers since his last visit. He continues on antibiotics for underlying osteomyelitis of the foot and does not report fevers or other side effects of antibiotics. He states his blood sugars are improving and are in the 200s this morning and that he's been checking them and taking his insulin as recommended. 09/26/16. Seen by Dr. Max. The patient does not report pain nor increased drainage associated with chronic left plantar foot diabetic ulcer and underlying chronic osteomyelitis since his last visit. Of note, he admits to not necessarily taking all of his antibiotics as recommended and his recent culture grew Klebsiella for which he is to be taken Augmentin. His blood sugars also continue to be elevated over 300 despite the fact he states he's been checking them taking his insulin. 09/23/16. Seen by Dr. Max. The patient does not report increased drainage or other acute changes regarding his chronic left plantar foot diabetic ulcer. He is checking his blood sugars and taking insulin however states that they still are often times over 300. He continues on Augmentin for underlying osteomyelitis of the foot and does not report adverse side effects. 09/21/16. Seen by Rashad Dupont PA-C. The patient reports that he continues to have high blood sugars despite taking 40 units twice daily of insulin. He reports occasionally missing a dose but tries to comply with his orders. He believes he has a follow up appointment soon with his PCP regarding diabetes but is unsure of the date. 09/15/16. Seen by Rashad Dupont PA-C. The patient reports continued difficulty sleeping due to difficulty breathing while supine, though he feels this is somewhat improved as he is reducing his fluid intake. He reports blood sugars consistently above 150 and believes he has an appointment with his PCP to review his diabetic regimen soon. He continues on augmentin for his osteomyelitis and his drainage from his left foot ulcer has been stable. 09/09/16. Seen by Dr. Max. The patient is not very engaging today however does not report any new problems regarding the chronic left plantar foot diabetic ulcer nor the wound VAC. He states he continues to take Augmentin as recommended for associated chronic osteomyelitis of the left first MTPJ and he is offloading as much as possible. He states he is also checking his blood sugars and taking his insulin as recommended however he has been quite noncompliant with this in the past. 09/05/16. Seen by Dr. Max. The patient does not report pain or increased drainage associated with the chronic left plantar foot diabetic ulcer since his last visit. He states he continues on Augmentin for osteomyelitis of the foot and does not report adverse side effects although he's not had a recent Rx written. His recent wound culture grew Klebsiella and group B Strep. 09/02/16. Seen by Rashad Dupont PA-C. The patient reports continued thirst and continued intake of a large amount of water. He reports that it is very difficult for him to resist drinking large amounts of fluids. His blood sugars continue to be over 200 and his chronic left foot diabetic ulcer has had stable drainage. He continues on oral antibiotics for his chronic osteomyelitis of the left foot. 08/29/16. Seen by Dr. Max. The patient does not report pain or increased drainage associated with the chronic left plantar foot diabetic ulcer since his last visit. He continues on Augmentin for osteomyelitis of the foot and does not report adverse side effects. His shortness of breath has improved as has his leg swelling and his recent ECHO showed only some diastolic dysfunction. He does report being very thirsty and drinking over a gallon of water and flavored drinks daily. His blood sugars have also been very poorly controlled over the past few months. 08/22/16. Seen by Dr. Max. The patient does not report pain or increased drainage associated with the chronic left plantar foot diabetic ulcer since his last visit although he's not very engaging today. He continues on Augmentin for osteomyelitis of the foot and does not report adverse side effects. Of note, his shortness of breath has improved as has his leg swelling and his ECHO showed only some diastolic dysfunction. He's not yet discussed this with is PCP however. 08/14/16. Seen by Dr. Max. The patient does not report pain or increased drainage associated with the chronic left plantar foot diabetic ulcer since his last visit. He continues on antibiotics for osteomyelitis of the foot and does not report adverse side effects. 08/19/16. Seen by Rashad Dupont PA-C. The patient reports continued high blood sugars, with all readings so far above 200. He reports stable drainage from her diabetic foot ulcer with underlying osteomyelitis and he has an upcoming echocardiogram to assess his orthopnea, which he reports is somewhat improved recently. He continues on augmentin for his underlying osteomyelitis. 08/15/16. Seen by Dr. Max. The patient does not report pain or significant drainage associated with chronic left plantar foot diabetic ulcer since his last visit. He is tolerating negative pressure wound therapy without difficulty and continues on antibiotics for acute osteomyelitis of the left first metatarsal. His blood sugars are over 400 today and he's non- committal regarding adherence to his insulin regimen. 08/12/16. Seen by Dr. Max. The patient reports that the SNAP wound VAC has not been working for the past day or so however he did not take the dressing off as recommended. The staff reports significant maceration associated with the chronic left plantar foot diabetic ulcer and he continues on antibiotics for underlying osteomyelitis of the first metatarsal. He is not checking blood sugars routinely and they continued to be significantly elevated over 200. He does not report fevers, pain in the foot, or feeling unwell. 08/07/16. Seen by Dr. Max. The patient does not report pain or significant drainage associated with chronic left plantar foot diabetic ulcer since his last visit. He is tolerating negative pressure wound therapy without difficulty and continues on antibiotics for acute osteomyelitis of the left first metatarsal. 08/04/16. Seen by Rashad Dupont PA-C. The patient reports continued difficulty sleeping due to shortness of breath when supine. He reports continued drainage from his Rivera grade III diabetic ulcer of the left foot. He continues to have very high blood sugars, with most readings above 200. 07/31/16. The patient does not report pain or significant drainage associated with chronic left plantar foot diabetic ulcer since his last visit. He is tolerating negative pressure wound therapy without difficulty and continues on antibiotics for acute osteomyelitis of the left first metatarsal. 07/28/16. Seen by Rashad Dupont PA-C. The patient reports continued drainage from his left foot Rivera grade III diabetic ulcer with underlying osteomyelitis, confirmed again recently on MRI. His blood sugars continue to be mostly above 250. He continues on antibiotics (augmentin until 08/08/16) to treat the chronic infection of this ulcer and to treat his osteomyelitis. 07/25/16. Seen by Dr. Max. The patient does not report pain or significant drainage associated with chronic left plantar foot diabetic ulcer since his last visit. His wound culture from the last visit grew Enterococcus and Strep group B. He is tolerating negative pressure wound therapy without difficulty and continues on antibiotics for acute osteomyelitis of the left first metatarsal. He does not check his blood sugars regularly and is noncommittal regarding taking his insulin as prescribed. He is also not wearing his offloading shoe as recommended. He does not report adverse side effects from the antibiotics, fevers, or feeling unwell in general. 07/23/16. Seen by Dr. Max. The patient does not report increased drainage or pain associated with the chronic left plantar foot diabetic ulcer and he's tolerated the wound VAC over the past few days without any difficulty. He continues on antibiotics for acute osteomyelitis of the left first metatarsal and does not report adverse side effects. He was seen by his primary care provider to establish care and specifically to address his diabetes and some recent shortness of breath which she states is now resolved. He states today that his medications have not been adjusted and he will see his primary care provider in 2 weeks again. His blood sugars continue to be elevated over 300 consistently. 07/21/16. Seen by Rashad Dupont PA-C. The patient reports severe shortness of breath with exertion and when supine, which begain 3 days ago and has worsened. The patient reports fevers and chills but denies chest pain. He has noted increased lower extremity edema during this time as well. He reports that he is unable to sleep because of the shortness of breath, but occasionally passes out from exhaustion. 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 07/17/16. Seen by Dr. Max. The patient continues on Bactrim for osteomyelitis of the left foot and he continues with negative pressure wound therapy to treat the overlying diabetic ulcer. His blood sugars continue to be significantly elevated despite increase his Lantus to 30 units daily. He will establish with his primary care provider early next week. 07/14/16. Seen by Dr. Max. The patient continues on Bactrim for osteomyelitis of the left first metatarsaland has tolerated the wound VAC treating the overlying diabetic ulcer without any issues. His blood sugar is 391 today and his Lantus has recently been increased to 20 units daily. He does not report fevers, feeling unwell, or adverse side effects from the Bactrim. 06/30/16. Seen by Dr. Max. The patient continues on antibiotics for his chronic and infected left plantar foot diabetic ulcer. His MRI confirms osteomyelitis of the head of the first metatarsal. He is tolerating negative pressure wound therapy however remains somewhat noncompliant in terms of removal of the wound VAC if it's not working. He is not routinely checking his blood sugars however but states he is taking is 10 units of Lantus as prescribed. He will establish with a primary care provider in about 2 weeks and he does not report fevers or feeling unwell in general. 07/07/16. Seen by Rashad Duopnt PA-C. The patient reports that he completed his MRI examination of his left foot today, just before this appointment. He reports continued drainage from his chronic diabetic foot ulcer of the left foot. Due to a labelling error, the wound cultures taken at his last visit were not processed. 07/03/16. Seen by Dr. Max. The patient disconnected his wound vac 2 days ago however did not remove the dressing as instructed. He's also not checking his blood sugars or taking insulin as prescribed and his blood sugars continue to be frequently elevated over 300 while in the clinic. He does not report pain or increased drainage associated with the chronic left foot diabetic ulcer, nor fevers or feeling unwell, since his last visit. 06/30/16. Seen by Rashad Dupont PA-C. The patient reports no increase in drainage from his chronic left foot diabetic ulcer. He reports better compliance with his insulin and glucose checks and reports that many of his sugars are still above 300. 06/26/16. Seen by Dr. Max. The patient does not report any problems regarding his wound VAC and he continues on doxycycline without reporting adverse side effects for the chronic infection of the left plantar foot diabetic ulcer. He's not routinely checking his blood sugars nor taking his insulin as recently prescribed and he's to establish with his new PCP within one month. 06/23/16. Seen by Rashad Dupont PA-C. The patient reports high blood sugars in the past few days despite being prescribed insulin by Dr. Max. The patient admits to forgetting more than 1/2 of his insulin doses since he was prescribed them. His left plantar foot diabetic ulcer has had stable and continued drainage.. 06/20/16. Seen by Dr. Max. The patient does not report any problems regarding his wound VAC and he continues on antibiotics for the chronic infection of the left plantar foot diabetic ulcer. He started insulin recently and states his blood sugars are between 200 and 300 and he is offloading with a wheelchair as much as possible. 06/18/16. Seen by Dr. Max. The patient does not report problems regarding the negative pressure dressing that was placed 2 days ago to treat the chronic left plantar foot diabetic ulcer. He does not report pain in the foot nor increased drainage and he continues on doxycycline for a chronic wound infection. He's also started taking his long acting insulin as prescribed last week and states his appointment to establish care with a new PCP is in about a month. His blood sugars continue to be elevated over 200 however. 06/16/16. Seen by Rashad Dupont PA-C. The patient reports continued blood sugars above 300 and continued drainage from his left plantar foot diabetic ulcer. 06/09/16. Seen by Rashad Dupont PA-C. The patient reports that he has been leaving his leg dependant when he has been sleeping and is noted to have experienced weight gain since his last appointment. He continues to have very high blood sugars and now has an appointment with primary care to establish care. 06/06/16. Seen by Dr. aMx. The patient does not report pain nor significant drainage associated with the chronic left foot diabetic ulcer over the past week. Also, his blood sugars are again over 200 today. 05/29/16. Seen by Dr. Max. The patient does not report pain nor significant drainage associated with the chronic left foot diabetic ulcer over the past week. Although he told the staff that he's discussed his diabetes management with a PCP he tells me has not yet re- established with a PCP as we've recommended so has not been checking blood sugars nor taking diabetes medication. 05/22/16. Seen by Dr. Max. The patient does not report pain nor significant drainage associated with the chronic left foot diabetic ulcer over the past week. 05/19/16. Seen by Rashad Dupont PA-C. The patient reports increased drainage from his chronic left foot diabetic ulcer since his last evaluation. The patient is not wearing his [place] boot to offload his ulcer and he reports very high blood sugars in the previous week. The patient continues to be homeless and reports that he was focused on staying warm during the past few days. 05/12/16. Seen by Rashad Dupont PA-C. The patient reports intermittent compliance with his levaquin usage and has not seen [facility] yet for assessment and fitting of his [place] boot. In addition he reports a new ulcer on his left 5th toe which began a couple days ago. 05/08/16. Seen by Dr. Max. The patient does not report significant drainage nor pain associated with the chronic left plantar foot diabetic ulcer. He continues on antibiotics for an associated wound infection and does not report adverse side effects.He is also not checking his blood sugars routinely and is currently homeless and living in his car. 05/05/16. Seen by Rashad Dupotn PA-C. The patient returns to our clinic after spending 12 weeks at [facility]. He reports that his left plantar foot diabetic ulcer never fully healed. He also reports that he has a [place] boot that he thinks still fits but is not wearing it. Currently he is on Bactrim and Cipro for an ulcer infection and reports missing doses frequently of these medications. 07/17/[address] Max. The patient does not report increased drainage, swelling, or erythema associated with his left plantar foot diabetic ulcer. He continues to offload the foot with a cane and wheelchair and is compliant with his antibiotic and diabetes regimens without reporting adverse side effects. 07/13/14 The patient's recent wound culture grew MRSA sensitive to doxycycline. He does not report increased pain, swelling, or drainage associated with the left plantar foot diabetic ulcer nor does he report fever, chills, or shakes as he has previously. He's compliant with his antibiotic and diabetes medications and states his blood sugars are around 150- 200. He's also met with his new PCP in the past week to establish care. 07/06/14 The patient does not report pain in either foot nor fever or chills. He states he's been compliant with his doxycycline and ciprofloxacin regimen as well as his diabetes regimen. He's not yet established with a PCP but has an appointment in October with a provider in [place]. He also states he does not leave his car very often and so has not had a need to use the wheelchair for offloading. 07/03/14 The patient reports that he is taking his antibiotics regularly now and does not report shakes fever or chills. He would prefer a PCP in [place] to one in [place] if he is not able to see someone in town. 06/29/14 The patient states he's been mostly compliant with his antibiotics that now includes doxycycline plus cipro. He feels the left foot swelling and erythema are beginning to improve. He's also taking a lower dose of metformin along with his glipizide and he does not report 'shakes' as he did at the last visit. 06/26/14 The patient states he experienced some intermittent 'shakes' a couple of day ago and felt it was do to his metformin so he stopped taking it. He does not report fever, sweats, or chills however. He says he's been taking cipro as prescribed but he feels the left foot swelling and erythema are slowly progressing. He also admits to not using his wheelchair or can as recommended and walking a good bit over the weekend. 06/22/14 The patient's new to our clinic but was seen twice on consult as an inpatient over the past month. He's a homeless gentleman with a large left 1st MTPJ plantar ulcer and a smaller right lateral 5th MT ulcer. He's now on a 6 week course of ciprofloxacin based on his MRI that showed possible early osteomyelitis in the left 1st MTPJ sesmoid bone. Deep wound cultures from 06/16/14 grew Group A Streptococcs. He feels the swelling and erythema have improved in the left forefoot as has the drainage. He also states his subjective fevers have resolved. He's a newly diagnosed diabetic and is now on Metformin and Glipizide with an A1c 10.2 on 05/17/14 and he states he's compliant with his medication regimen. His arterial doppler showed only mild atherosclerotic disease in the right SFA. Of note, he's not yet established with a PCP at the [facility] and he states he use a wheelchair for mobilizing except for very short walks when he uses a cane to help offload the left foot. Past Medical History This information was obtained from the patient Patient has a medical history of: Diabetes, type II (A1c > 14 05/23/16; 10.2 06/06/14) Osteomyelitis (left 1st MTPJ sesmoid) Homeless Diabetic foot ulcer - 06/06/2014 (left 1st MTPJ; Rivera grade III with osteomyelitis; MRSA positive deep wound culture 07/11/14) Diabetic foot ulcer - 06/22/2014 (right 5th MT; Rivera grade I) Complaints and Symptoms This information was obtained from the patient Patient complains of: General Notes: I have reviewed and concur with the Review of Systems and Past Family Social History documents completed by the clinician, I have reviewed and concur with the Wound Assessment document completed by the clinician Integumentary (Hair/Skin/Nails): Open Sore Musculoskeletal: Assistive Devices Neurological: Abnormal Gait, Loss of Protective Sensation Prior Wound History: Drainage, Erythema, Malodor Psychiatric: Depression Patient denies complaints or symptoms related to: Cardiovascular (Central): Irregular heart beat Cardiovascular (Central/Peripheral): Lower extremity (leg) resting pain, Lower extremity (leg) swelling Cardiovascular (Peripheral) Constitutional Symptoms (General Health): Chills, Fever, Marked Weight Change Ear/Nose/Mouth/Throat: Hearing Loss / Aid Gastrointestinal (GI): Nausea / Vomiting, Stomach/abdominal pain Hematologic/Lymphatic: Bleeding / Clotting Disorders, Bleeding Tendency Musculoskeletal: Joint Swelling, Muscle Weakness Prior Wound History: Bleeding, Pain Psychiatric: Memory Loss Respiratory: Oxygen Use, Shortness of Breath OBJECTIVE Constitutional BP normal; Low grade fever; Alert and in no distress. Dishelved. Height/Length: 73 in (185.42 cm), Weight: 259 lbs (117.73 kgs), BMI: 34.2, Temperature: 99.1 ?F (37.28 ?C), Pulse: 94 bpm, Respiratory Rate: 18 breaths/min, Blood Pressure: 116/70 mmHg, Capillary Blood Glucose: 310 mg/dl, Pulse Oximetry: 95 %. Vital Signs Notes: Glucose per patient. Ears, Nose, Mouth, and Throat: No clinically significant hearing loss on informal examination. Respiratory: No respiratory distress. Even respirations and without use of accessory muscles.. Musculoskeletal: Severe left foot Charcot deformity. Integumentary (Hair, Skin) Refer to appropriate clinician wound documentation for this visit; left foot ulcer extends to subcut with base partially covered with pink granulation, remainder fibrin and slough; right 5th toe ulcer extends to dermis. Moderate amount of callus in the periulcer areas. Wound #5 Left, Plantar Foot is a chronic Rivera Grade 3 Diabetic Ulcer and has received a status of Not Healed. Subsequent wound encounter measurements are 0.3cm length x 0.2cm width x 0.3cm depth, with an area of 0.06 sq cm and a volume of 0.018 cubic cm. No tunneling has been noted. No sinus tract has been noted. No undermining has been noted. There is a small amount of serosanguineous drainage noted which has no odor. The patient reports a wound pain of level 0/10. The wound margin is callus. Wound bed has Yes epithelialization, No eschar, No slough, Yes bright red, firm granulation. The periwound skin moisture is normal. The periwound skin color is normal. The periwound skin exhibited: Callus. The periwound skin did not exhibit: Brawny Induration, Edema, Excoriation, Induration, Crepitus, Fluctuance, Friable, Rash. The temperature of the periwound skin is WNL. Periwound skin does not exhibit signs or symptoms of infection. Local Pulse is Palpable. Wound #6 Right Fifth Toe is an acute Rivera Grade 1 Diabetic Ulcer and has received a status of Not Healed. Subsequent wound encounter measurements are 0.1cm length x 0.1cm width x 0.2cm depth, with an area of 0.01 sq cm and a volume of 0.002 cubic cm. No tunneling has been noted. No sinus tract has been noted. No undermining has been noted. There was no drainage noted. The patient reports no wound pain due to the wound being insensate. The wound margin is callus. Wound bed has Yes epithelialization, No eschar, Yes slough, Yes pink, firm granulation. The periwound skin moisture is normal. The periwound skin color is normal. The periwound skin exhibited: Callus. The periwound skin did not exhibit: Brawny Induration, Edema, Excoriation, Induration, Crepitus, Fluctuance, Friable, Rash. The temperature of the periwound skin is WNL. Periwound skin does not exhibit signs or symptoms of infection. Local Pulse is Palpable. Neurological: Cranial nerves grossly intact with symmetric function normal by informal observation.. ASSESSMENT Active Problems ICD-10 (Encounter Diagnosis) L97.522 - Non-pressure chronic ulcer of other part of left foot with fat layer exposed (Encounter Diagnosis) E11.621 - Type 2 diabetes mellitus with foot ulcer (Encounter Diagnosis) L97.511 - Non-pressure chronic ulcer of other part of right foot limited to breakdown of skin PROCEDURES Wound #5 Wound #5 (Diabetic Ulcer) is located on the left, plantar foot. A skin/ subcutaneous tissue level surgical debridement with a total area debrided of 0.08 sq cm was performed by Jorge Luis Max MD. Subcutaneous was removed along with devitalized tissue: callus and exudate. The following instrument(s) were used: curette. Pain control was achieved using 4% Lido. A time out was conducted prior to the start of the procedure. A minimal amount of bleeding was controlled with pressure. The procedure was tolerated well with a pain level of 0 throughout and a pain level of 0 following the procedure. Post Debridement Measurements: 0.4cm length x 0.2cm width x 0.2cm depth; with an area of 0.08 sq cm and a volume of 0.016 cubic cm; Wound #6 Wound #6 (Diabetic Ulcer) is located on the right fifth toe. A selective debridement with a total area debrided of 0.04 sq cm was performed by Jorge Luis Max MD. to remove devitalized tissue: callus and exudate. The following instrument(s) were used: curette. Pain control was achieved using 4% Lido. A time out was conducted prior to the start of the procedure. No bleeding occurred. The procedure was tolerated well with a pain level of 0 throughout and a pain level of 0 following the procedure. Post Debridement Measurements: 0.2cm length x 0.2cm width x 0.1cm depth; with an area of 0.04 sq cm and a volume of 0.004 cubic cm; Additional Information Muscle fascia or bone removed and sent to pathology?: No PLAN Wound Orders: Wound #5 Left, Plantar Foot Cleanser Cleanse Wound: - Normal Saline and gauze. May Shower. - Please avoid getting tap water in wound or on dressing. Cover while in shower. Topical Treatments Antibiotic/Antimicrobial Ointment/Cream. - Iodosorb. Dressings Cover and secure with: - Small Covrsite (or equivalent island dressing). Change Dressing: - Every other day. Wound #6 Right Fifth Toe Cleanser Cleanse Wound: - Normal Saline and gauze. May Shower. - Please avoid getting tap water in wound or on dressing. Cover while in shower. Dressings Primary dressing: - Telfa pad, may use foam if preferred. Cover and secure with: - Tape. Change Dressing: - Every other day Additional Orders: Off-Loading Keep weight off: - Left foot. Follow-Up Appointments Return Appointment: - - One week. Other information: If you develop fever, chills, increased pain, drainage, redness or swelling please call our office. If after hours, respond to the ER. Should you experience any significant changes in your wound(s) or have any questions regarding your home care instructions please contact the wound center @ [phone]. If after hours, contact your primary care physician or go to the hospital emergency room. Scribing Attestation I attest, as the nurse, that I scribed these orders for the physician. I've reviewed the clinician's documentation and agree with the evaluation and plan as written. In addition the patient's ulcers demonstrate evidence of non-viable devitalized tissue and they will continue to benefit from sharp debridement to help promote granulation and expedite healing. Electronic Signature(s) Signed By: Date: Jorge Luis Max MD 12/28/2017 13:28:46 Entered By: Jorge Luis Max on 12/28/2017 13:27:34
== END ==
PROVIDERS: PCP Family Medicine; Visit Provider Internal Medicine
DX: E11.621 Type 2 diabetes mellitus with foot ulcer (principal); L97.522 Non-pressure chronic ulcer of other part of left foot with fat layer exposed; L97.511 Non-pressure chronic ulcer of other part of right foot limited to breakdown of skin
CPT/HCPCS: 11042; 97597

== ENCOUNTER → 2018-01-14 09:30 | Outpatient (CLI) | payer OTHER, MEDICAID, SELFPAY | PROVIDERS: PCP Family Medicine; Visit Provider Family Medicine | DX: E11.622 Type 2 diabetes mellitus with other skin ulcer (principal); L97.421 Non-pressure chronic ulcer of left heel and midfoot limited to breakdown of skin; Z48.817 Encounter for surgical aftercare following surgery on the skin and subcutaneous tissue | CPT/HCPCS: 11042; 99213 ==

== ENCOUNTER → 2018-01-25 08:49 | Outpatient (CLI) | payer OTHER, MEDICAID, SELFPAY | PROVIDERS: PCP Family Medicine; Visit Provider Family Medicine | DX: E11.621 Type 2 diabetes mellitus with foot ulcer (principal); E11.40 Type 2 diabetes mellitus with diabetic neuropathy, unspecified; L97.521 Non-pressure chronic ulcer of other part of left foot limited to breakdown of skin; F17.210 Nicotine dependence, cigarettes, uncomplicated | CPT/HCPCS: 11042 ==

== ENCOUNTER → 2018-03-18 17:25 | Outpatient (REF) | payer OTHER, MEDICAID, SELFPAY | LOC: LAB 17:25 | PROVIDERS: PCP Family Medicine; Visit Provider Internal Medicine | DX: L97.522 Non-pressure chronic ulcer of other part of left foot with fat layer exposed (principal) | CPT/HCPCS: 87070; 87075; 87077; 87147; 87186; 87205 ==

== ENCOUNTER → 2018-04-14 18:31 | Outpatient (REF) | payer OTHER, MEDICAID, SELFPAY | LOC: LAB 18:31 | PROVIDERS: PCP Family Medicine; Visit Provider Internal Medicine | DX: L08.9 Local infection of the skin and subcutaneous tissue, unspecified (principal) | CPT/HCPCS: 87070; 87075; 87077; 87147; 87186; 87205 ==

== ENCOUNTER → 2018-05-04 08:51 | Outpatient (CLI) | payer OTHER, MEDICAID, SELFPAY | PROVIDERS: PCP Family Medicine; Visit Provider Family Medicine | CPT/HCPCS: 87070; 87205 ==

== ENCOUNTER → 2018-05-04 09:54 | Outpatient (CLI) | payer OTHER, MEDICAID, SELFPAY ==
--- NOTE | 2018-05-04 | DI.RAD.S_ITS ---
PROCEDURE: XR FOOT LT MIN 3V INDICATIONS: LT FOOT PAIN TECHNIQUE: 3 views of the foot were acquired. COMPARISON: [facility], CR, FOOT 3V LEFT, 02/03/2017, 9:26. [facility], CR, FOOT 3V LEFT, 04/17/2017, 8:52. FINDINGS: Bones: No acute fracture is seen. There is interval development of healing sclerosis at the first MTP joint since 04/17/17. Chronic deformity of the second metatarsal again noted and unchanged. There is diffuse interphalangeal joint degeneration. Severe diffuse midfoot and hindfoot sclerosis spurring and deformity, suggesting Charcot arthropathy as before. There is pes planus appearance, although this weight bearing views would be more specific Soft tissues: No tibiotalar joint effusion. Achilles tendon appears normal. IMPRESSION: Decreased lytic appearance at the first MTP joint suggestive of healing sclerosis of previously described osteomyelitis/septic arthritis since 04/17/17. As clinically warranted, continued surveillance or short interval radiographs to exclude residual infection could be performed. Advanced chronic diffuse degenerative changes as above. Dictated by: Jai Ordonez M.D. on 05/04/2018 at 12:39 Approved by: Jai Ordonez M.D. on 05/04/2018 at 12:43
[2018-05-04 11:03] LABS: Add Manual Diff / Slide Review NO; Basophils Absolute Auto 100 /uL (0-100); Basophils Percent Auto 0.9 % (0-2); Eosinophils Absolute Auto 300 /uL (0-450); Hematocrit 45.8 % (41-53); Hemoglobin 15.5 g/dL (13.5-17.5); Lymphocytes Absolute Auto 1700 /uL (1100-4500); Mean Corpuscular HGB Conc 33.8 % (30-36); Mean Corpuscular Hemoglobin 30.4 PG (26-34); Monocytes Absolute Auto 700 /uL (0-900); Neutrophils Absolute Auto 5000 /uL (1500-7000); Neutrophils Percent Auto 64.1 % (50-75); Platelet Count 230 X10^3/uL (150-400); Red Blood Cell Count 5.09 X10^6/uL (4.5-5.9); Red Cell Distribution Width 14.9 % (11.6-14.8); White Blood Cell Count 7.9 X10^3/uL (4.5-11.0)
[2018-05-04 11:25] LABS: Erythrocyte Sedimentation Rate 6 MM/HR (0-15)
[2018-05-04 11:32] LABS: Alanine Aminotransferase 40 IU/L (21-72); Albumin 4.1 g/dL (3.5-5.0); Albumin Globulin Ratio 1.3 (1.0-2.8); Alkaline Phosphatase 79 U/L (38-126); Aspartate Aminotransferase 21 IU/L (17-59); Bilirubin Total 0.3 mg/dL (0.2-1.3); Blood Urea Nitrogen 20 mg/dL (9-20); C-Reactive Protein Quant 0.7 mg/dL (<1.0); Calcium 9.2 mg/dL (8.4-10.2); Carbon Dioxide 26 mmol/L (22-32); Chloride 97 mmol/L (98-107); Estimated Glomerular Filt Rate > 60.0 mL/min (>60); Globulin 3.2 g/dL (1.7-4.1); Glucose 292 mg/dL (70-100); HEMOLYSIS 23 (0-50); Potassium 4.6 mmol/L (3.4-5.1); Sodium 135 mmol/L (137-145); Total Protein 7.3 g/dL (6.3-8.2)
[2018-05-04 11:37] LABS: Prealbumin 38.3 mg/dL (17.6-36.0)
[2018-05-04 11:39] LABS: Hemoglobin A1C% w Est Avg Glu 12.4 % (4.0-6.0)
== END ==
PROVIDERS: PCP Family Medicine; Visit Provider Family Medicine
DX: E11.621 Type 2 diabetes mellitus with foot ulcer (principal); L97.522 Non-pressure chronic ulcer of other part of left foot with fat layer exposed; M79.672 Pain in left foot; M19.072 Primary osteoarthritis, left ankle and foot
CPT/HCPCS: 11042; 36415; 73630; 80053; 83036; 84134; 85025; 85651; 86140; 87070; 87077; 87147; 87186; 87205; 99213

== ENCOUNTER → 2018-05-11 08:36 | Outpatient (CLI) | payer OTHER, MEDICAID, SELFPAY | PROVIDERS: PCP Family Medicine; Visit Provider Family Medicine | DX: E11.621 Type 2 diabetes mellitus with foot ulcer (principal); L97.522 Non-pressure chronic ulcer of other part of left foot with fat layer exposed; L08.9 Local infection of the skin and subcutaneous tissue, unspecified; A49.02 Methicillin resistant Staphylococcus aureus infection, unspecified site | CPT/HCPCS: 11042; 99213 ==

== ENCOUNTER → 2018-05-18 08:32 | Outpatient (CLI) | payer OTHER, MEDICAID, SELFPAY | PROVIDERS: PCP Family Medicine; Visit Provider Family Medicine | DX: E11.621 Type 2 diabetes mellitus with foot ulcer (principal) | CPT/HCPCS: 11042 ==

== ENCOUNTER → 2018-05-18 10:08 | Outpatient (CLI) | payer OTHER, MEDICAID, SELFPAY ==
--- NOTE | 2018-05-18 | DI.RAD.S_ITS ---
PROCEDURE: XR CHEST 2V INDICATIONS: PRE HYPERTENTION TECHNIQUE: 2 views of the chest were acquired. COMPARISON: [facility], , CHEST 2 VIEW, 07/22/2016, 10:25. FINDINGS: Surgical changes and devices: None. Lungs and pleura: There is mild left hemidiaphragm elevation. Chronic interstitial prominence appears unchanged. Bibasilar opacities may be atelectasis. No pleural effusions or pneumothorax. Mediastinum: Mediastinal contours are normal. Heart size is normal. Bones and chest wall: No suspicious bony abnormalities. Soft tissues appear unremarkable. IMPRESSION: 1. Mild left hemidiaphragm elevation. 2. Stable chronic interstitial prominence appears unchanged. 3. Bibasilar atelectasis. Dictated by: Aaron Whaley M.D. on 05/18/2018 at 11:58 Approved by: Aaron Whaley M.D. on 05/18/2018 at 12:00
== END ==
PROVIDERS: PCP Family Medicine; Visit Provider Family Medicine
DX: Z01.818 Encounter for other preprocedural examination (principal); J44.9 Chronic obstructive pulmonary disease, unspecified; J98.11 Atelectasis
CPT/HCPCS: 71046

== ENCOUNTER → 2018-05-25 08:34 | Outpatient (CLI) | payer OTHER, MEDICAID, SELFPAY | PROVIDERS: PCP Family Medicine; Visit Provider Family Medicine | DX: E11.621 Type 2 diabetes mellitus with foot ulcer (principal); L97.522 Non-pressure chronic ulcer of other part of left foot with fat layer exposed; F17.210 Nicotine dependence, cigarettes, uncomplicated | CPT/HCPCS: 11042; 99214 ==

== ENCOUNTER → 2018-05-25 10:46 | Outpatient (CLI) | payer OTHER, MEDICAID, SELFPAY ==
[2018-05-27 14:52] LABS: Fructosamine 399 umol/L (190-270)
== END ==
PROVIDERS: PCP Family Medicine; Visit Provider Family Medicine
DX: E11.621 Type 2 diabetes mellitus with foot ulcer (principal)
CPT/HCPCS: 36415; 82985

== ENCOUNTER → 2018-05-27 10:44 | Outpatient (CLI) | payer OTHER, MEDICAID, SELFPAY | PROVIDERS: PCP Family Medicine; Visit Provider Family Medicine | DX: E11.621 Type 2 diabetes mellitus with foot ulcer (principal); L97.522 Non-pressure chronic ulcer of other part of left foot with fat layer exposed | CPT/HCPCS: 29445 ==

== ENCOUNTER → 2018-05-28 08:39 | Outpatient (CLI) | payer OTHER, MEDICAID, SELFPAY ==
--- NOTE | 2018-06-05 10:51 | PM.PFT.1 ---
Pulmonary Function Test Referral & Results Date Patient Seen: 05/28/18 Requesting provider: Bhargav Lee Indication: J44.9 Results: The spirometry demonstrates an FVC of 3.97 L which is 72% of predicted. The FEV1 was measured at 2.72 L which is 64% of predicted. The FEV1/FVC ratio was 68 which is 90% of predicted. Following the administration of bronchodilator there was no appreciable change. Lung volumes show an SVC of 4.0 L which is 74% of predicted. The diffusing capacity was measured at 25.41 which is 67% of predicted. No hemoglobin value was provided, so no correction for potential anemia could be made, if appropriate. The maximum voluntary ventilation was normal Interpretation: This study demonstrates moderate obstructive lung disease based on reduction in FEV1. There is no evidence of significant benefit following bronchodilator There is slight reduction in lung volumes suggesting an element of restrictive lung disease as well There is also a reduction in diffusing capacity suggesting some element of disease at the capillary alveolar level Clinical correlation suggested
== END ==
PROVIDERS: PCP Family Medicine; Visit Provider Family Medicine
DX: J44.9 Chronic obstructive pulmonary disease, unspecified (principal)
CPT/HCPCS: 94060; 94726; 94729

== ENCOUNTER → 2018-06-03 09:04 | Outpatient (CLI) | payer OTHER, MEDICAID, SELFPAY | PROVIDERS: PCP Family Medicine; Visit Provider Family Medicine | DX: E11.622 Type 2 diabetes mellitus with other skin ulcer (principal); L97.423 Non-pressure chronic ulcer of left heel and midfoot with necrosis of muscle; L97.422 Non-pressure chronic ulcer of left heel and midfoot with fat layer exposed; L03.116 Cellulitis of left lower limb | CPT/HCPCS: 11042; 11043; 87070; 87075; 87077; 87147; 87186; 87205; 99214 ==

== ENCOUNTER 2018-06-04 02:56 | Emergency (ER) | payer OTHER, MEDICAID, SELFPAY ==
[2018-06-04 03:05] VITALS: BMI 35.2
[2018-06-04 03:09] VITALS: BP 148/91; PULSE 115; RESP 18; O2SAT 94
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
--- NOTE | 2018-06-04 05:02 | PC.NURSE ---
HIS LEFT FOOT WOUNDS WERE CLEANED WITH SOAP AND WATER AND STERILE 4BY4 AND [employer] DRESSING WAS APPLIED AFTER,ABLE TO APPLY HIS SHOE AFTER,HE LEFT SMILING AND THANKFULL.
[2018-06-04 05:04] VITALS: BP 141/88; PULSE 98; RESP 18; O2SAT 98
--- NOTE | 2018-06-04 05:08 | ED.LOWEXIN ---
HPI - Extremity Injury (Lower) General Chief Complaint: Extremity Injury, Lower Stated Complaint: left foot infection Time Seen by Provider: 06/04/18 03:45 Source: patient Mode of arrival: ambulatory Limitations: no limitations History of Present Illness HPI Narrative: Patient come to the emergency department to have his wound checked, after his community support specialist obtained a culture 2 weeks in a row, but did not start any antibiotics. Patient states he has had a diabetic foot ulcer for a long time on his right foot, and has been followed by wound Care Clinic for this. patient states that a few weeks ago, he was given a walking boot to wear, and that this ended up putting pressure on another area and make another ulcer. Patient states he has been continuing to see the wound care clinic for management of this. Patient states he was just seen yesterday, and that the wounds were packed. He does not feel that there is more erythema, and has not had any fevers or chills. He states his chronic skin findings, including flaking any erythema, are about baseline. The edges of the erythema has been marked, and erythema has not spread beyond the borders. Patient states the area may be slightly more tender than usual. No drainage out of the wounds. No new injury. No other complaints at this time. Related Data Previous Rx's Medication Instructions Recorded acetaminophen 325 mg PO Q4HP PRN #60 tab 05/11/17 sodium chloride [Deep Sea Nasal] 1 spray INTRANASAL PRN PRN #44 ml 05/22/17 albuterol sulfate [Ventolin HFA] 2 puff INH Q4HP PRN #1 ea 05/27/17 metformin [Glucophage] 1,000 mg PO BIDCC #120 tab 05/27/17 lancets 30 gauge #100 each 07/22/17 fluticasone propionate 50 1 spray NASAL Q12H #9.9 gram 10/12/17 mcg/actuation nasal spray,suspension loratadine 10 mg tablet 10 mg PO Q24H #30 tab 10/12/17 blood sugar diagnostic strips #100 each 10/20/17 insulin glargine (U-100) 100 40 unit SUBCUT HS #1 each 10/20/17 unit/mL (3 mL) subcutaneous pen chlorhexidine gluconate 0.12 % 15 ml MM BID #15 ml 10/21/17 mouthwash pen needle, diabetic 32 gauge x #100 each 04/07/18 Allergies Allergy/AdvReac Type Severity Reaction Status Date / Time hydrocodone Allergy Mild ITCHING Verified 10/12/17 11:33 oxycodone [OXYCODONE] Allergy Mild ITCHING Verified 10/12/17 11:33 codeine AdvReac Mild STOMACH Verified 10/12/17 11:33 UPSET Review of Systems Constitutional Denies chills, Denies fever(s), Denies lethargy and Denies weakness Eyes Denies change in vision, Denies eye discharge, Denies irritation and Denies loss of vision ENT Ears, Nose, Mouth, and Throat: Denies change in voice, Denies neck pain and Denies sore throat Cardiovascular Denies chest pain, Denies irregular heart rhythm, Denies lightheadedness, Denies palpitations, Denies dyspnea, Denies dyspnea on exertion and Denies orthopnea Respiratory Denies cough, Denies dyspnea, Denies dyspnea on exertion and Denies wheezing Gastrointestinal Gastrointestinal: Denies abdominal pain, Denies change in bowel habits, Denies diarrhea, Denies nausea and Denies vomiting Genitourinary Denies hematuria, Denies flank pain, Denies urinary incontinence and Denies urinary urgency Musculoskeletal Denies neck pain Integumentary/Breasts Denies pruritus, Reports erythema, Denies rash and Reports wounds Neurologic Denies confusion, Denies loss of vision and Denies weakness Psychiatric Denies anxiety, Denies confusion, Denies depression, Denies homicidal ideation and Denies suicidal ideation Endocrine Denies palpitations Hematologic/Lymphatic Denies easy bruising Allergic/Immunologic Denies wheezing [facility] Medical History Chronic diabetic ulcer of foot determined by examination (Chronic) Diabetes mellitus (Chronic) Presence of surgical screw in left hand (Chronic) CTS (carpal tunnel syndrome) (Resolved) Surgical History History of carpal tunnel release (Resolved) History of hand surgery (Resolved) History of umbilical hernia repair (Resolved) Status post left foot surgery (Resolved) Status post left foot surgery (Resolved) Family History Father Diabetes mellitus Mother No problems noted. Family History Father Diabetes mellitus Mother No problems noted. Exam Initial Vital Signs Initial Vital Signs: Vital Signs Pulse Rate 115 H 06/04/18 03:09 Respiratory Rate 18 03/22/19 03:09 Blood Pressure 148/91 H 06/04/18 03:09 Pulse Oximetry 94 06/04/18 03:09 Const General: cooperative and well developed Nutritional Appearance: well nourished Orientation: alert, awake, oriented x3 and not confused [facility] Head: normocephalic and atraumatic Ears: external ears normal Nose: external nose normal and No nasal discharge Face and sinus: face symmetric and No dry mucous membranes Mouth: oral mucosae normal and moist mucous membranes Teeth and gingiva: dentition normal Eyes General: appearance normal, both eyes and all related structures Eyelids: eyelids normal Conjunctivae: conjunctivae normal Sclera: sclerae normal Pupils: PERRL EOM: EOM intact bilaterally Neck Neck: normal visual inspection, trachea midline, No lymphadenopathy, No midline deformity and No JVD Lymphatic: No lymphedema Chest Chest: normal inspection of the chest Resp Effort & Inspection: normal respiratory effort, able to speak in complete sentences, no respiratory distress and no use of accessory muscles Cardio Rate: regular rate Rhythm: regular rhythm Pulses: normal peripheral pulses Back/Spine/Pelvis Back: No CVA tenderness Cervical Spine: cervical ROM normal and No pain with cervical ROM Thoracic/Lumbar Spine: thoracic and lumbar spine normal to inspection Skin General: no rashes or lesions noted, No jaundice and No petechiae Neuro General: alert, oriented x3, gait normal and no focal motor deficits Speech: speech normal Extrem General: full ROM and no calf tenderness Other: Patient has a 1.5 cm ulcer on the plantar aspect of his left foot, with packing in place. Packing is clean dry and intact. There is no drainage or moisture. There is no induration. Minimal erythema is noted. There is no evidence of new trauma. A 2nd wound, the same size, is noted on the lateral aspect of the patient's left foot. This also has packing in place. Moderate erythema surrounds the wound and extends up the anterior aspect of the patient's left lower leg to the border of about the distal and middle thirds. There is no drainage from the wound. No fluctuance. Patient has chronic appearing dermatitis of his entire left lower leg. No erythematous streaking. Psych Appearance: well kempt Mental Status: mental status grossly normal Attitude: cooperative Thought Content: normal and suicidality Judgment: judgment good Course Course Narrative: I discussed with the patient that at this point in time, the patient himself is not complaining of any worsening symptoms, and has actually stated that his wounds in the skin appear baseline. I do not feel that antibiotics are indicated in this case, as nothing has really changed. I discussed with the patient that if his wound care doctor has already culture the wounds, that is probably in his best interest to follow up with the doctor from wound care and decide if and when antibiotics are needed. If this can be done with greater specificity, according to culture, that is most ideal, as patient has been on a lot of antibiotic courses, which puts him at risk for resistant infection. Patient agrees, and states he is already scheduled to see his wound care doctor on Thursday, as today is Thursday morning. We have discussed that the patient may return to the emergency department any time, should he have any concerns. Patient is afebrile and otherwise feeling well, and I feel he is stable for discharge home. Vital Signs - 8 hr 06/04/18 03:09 06/04/18 05:04 Pulse Rate 115 H 98 H Respiratory Rate 18 18 Blood Pressure 141/88 H Blood Pressure [Left Arm] 148/91 H Pulse Oximetry 94 98 MDM - Extremity Injury (Lower) Medical Records Attestation: I reviewed the patient's medical records. Discharge Plan Departure Patient Disposition: Home Clinical Impression: Diabetic foot ulcer Qualifiers: Diabetic foot ulcer location: midfoot Diabetes mellitus type: type 1 Laterality: right Non-pressure ulcer stage: unspecified non-pressure ulcer stage Qualified Code(s): E10.621 - Type 1 diabetes mellitus with foot ulcer Discharge Date/Time: 06/04/18 05:21 Interventions: ED Discharge Assessment Last Done: 06/04/18 05:04 Instructions: DI for Diabetic Foot Ulcer Activity Restrictions/Additional Instructions: As we have discussed, you have no fevers at this time, and as you have stated, your foot appears to be at baseline. As your doctor has just collected a culture recently, and you are scheduled to see him in a few days, the best plan most likely would be to talk to your community support specialist, once the culture is back, about the best antibiotic options for you, based on culture results. Prescriptions: No Action acetaminophen 325 MG tablet 325 mg PO Q4HP PRNQty: 60 RF: 1 sodium chloride [Deep Sea Nasal] 44 ML aerosol,spray 1 spray Intranasal PRN PRNQty: 44 RF: 2 metformin [Glucophage] 500 MG tablet 1,000 mg PO BIDCC Qty: 120 RF: 1 albuterol sulfate [Ventolin HFA] 90 MCG/PUFF HFA aerosol inhaler 2 puff INH Q4HP PRNQty: 1 RF: 1 lancets [TRUEplus Lancets] 30 gauge misc .ROUTE .MEDSUPPLY Qty: 100 RF: 11 blood sugar diagnostic [True Metrix Glucose Test Strip] strip .ROUTE .MEDSUPPLY Qty: 100 RF: 3 insulin glargine [Basaglar KwikPen U-100 Insulin] 100 unit/mL (3 mL) insulin pen 40 unit SUBCUT HS Qty: 1 RF: 1 chlorhexidine gluconate 0.12 % mouthwash 15 ml MM BID Qty: 15 RF: 1 pen needle, diabetic [BD Ultra-Fine Kathleen Pen Needle] 32 gauge x 5/32 needle .ROUTE .MEDSUPPLY Qty: 100 RF: 0 fluticasone propionate [Flonase Allergy Relief] 50 mcg/actuation spray,suspension 1 spray NASAL Q12H Qty: 9.9 RF: 2 loratadine [Allergy Relief (loratadine)] 10 mg tablet 10 mg PO Q24H Qty: 30 RF: 2 Referrals: Madeline Morales DO [Primary Care Provider] -
--- NOTE | 2018-06-04 05:19 | PC.NURSE ---
he has chronic diabetic ulcers on left foot that he sees wound care for,there was packing in the anterior upper medial ulcer.DR. Edwards removed the old dressing and I applied a new one as per previous note.
== END 2018-06-04 05:21 | disposition home or self-care (01) ==
PROVIDERS: Emergency Provider Emergency Medicine; PCP Family Medicine
DX: E10.621 Type 1 diabetes mellitus with foot ulcer (principal)
CPT/HCPCS: 99282

== ENCOUNTER 2018-06-07 15:27 | Inpatient (IN) | payer OTHER, MEDICAID, SELFPAY ==
[2018-06-07 15:48] VITALS: BP 141/90; PULSE 110; RESP 18; TEMP 37.3; O2SAT 94; BMI 34.2
--- NOTE | 2018-06-07 18:13 | ED.WOUNDLAC ---
HPI - Wound/Laceration General Chief Complaint: Wound/Laceration Stated Complaint: LEFT FOOT INFECTION Time Seen by Provider: 06/07/18 18:13 Source: patient and old records reviewed Mode of arrival: wheelchair Limitations: no limitations History of Present Illness HPI narrative: Patient is a 50-year-old insulin-dependent diabetic male sent over from the wound clinic for concerns of worsening diabetic ulcers left foot. Back in April patient had a wound culture that grew out MRSA. He was treated with doxycycline. Patient is here today because he states he was told to come over for concerns of worsening infection. Patient has minimal if any feeling in the left foot. She has recently been in a cast however is not currently in 1. Related Data Previous Rx's Medication Instructions Recorded metformin [Glucophage] 1,000 mg PO BIDCC #120 tab 05/27/17 lancets 30 gauge #100 each 07/22/17 blood sugar diagnostic strips #100 each 10/20/17 insulin glargine (U-100) 100 40 unit SUBCUT HS #1 each 10/20/17 unit/mL (3 mL) subcutaneous pen pen needle, diabetic 32 gauge x #100 each 04/07/18 Allergies Allergy/AdvReac Type Severity Reaction Status Date / Time hydrocodone Allergy Mild ITCHING Verified 06/07/18 15:51 oxycodone [OXYCODONE] Allergy Mild ITCHING Verified 06/07/18 15:51 codeine AdvReac Mild STOMACH Verified 06/07/18 15:51 UPSET Review of Systems Constitutional Denies body ache(s) and Denies fever(s) Cardiovascular Denies chest pain and Denies dyspnea Respiratory Denies dyspnea Gastrointestinal Gastrointestinal: Denies abdominal pain Musculoskeletal Denies myalgias and Denies arthralgias Integumentary/Breasts Comments: Red infection and drainage left foot Neurologic Comments: Minimal if any feeling of the left foot Hematologic/Lymphatic Denies easy bleeding and Denies easy bruising [facility] Medical History Diabetes mellitus (Chronic) Chronic diabetic ulcer of foot determined by examination (Chronic) Presence of surgical screw in left hand (Chronic) CTS (carpal tunnel syndrome) (Resolved) Family History Father Diabetes mellitus Mother No problems noted. Social History household members: none Smoking Status: Current every day smoker alcohol intake: former Exam Initial Vital Signs Initial Vital Signs: Vital Signs Temperature 99.1 F 06/07/18 15:48 Pulse Rate 110 H 06/07/18 15:48 Respiratory Rate 18 06/07/18 15:48 Blood Pressure 141/90 H 06/07/18 15:48 Pulse Oximetry 94 06/07/18 15:48 Const General: No well groomed, No acute distress and disheveled Orientation: alert, awake and oriented x3 Resp Effort & Inspection: normal respiratory effort Cardio Rate: regular rate Skin Other: Patient with a red swollen left foot. Bilateral feet have extensive amounts of dry skin. Very poor nails. Patient has 2 wounds on the left foot. One being approximately 2 cm on the plantar aspect of the foot distally and another approximately for 3-4 cm on the medial aspect of the foot. No surrounding black areas. Does have purulent drainage. Neuro Other: Patient reports minimal if any feeling to bilateral feet to light touch. Extrem Other: Swelling and redness around the left foot Psych Appearance: grossly normal and well kempt Course Orders Ordered: ED Orders 06/07/18 18:30 C-Reactive Protein Quant Stat Complete Blood Count AUTO DIFF Stat Comprehensive Metabolic Panel Stat Erythrocyte Sedimentation Rate Stat Lactate (Lactic Acid) Stat Procalcitonin Stat 06/07/18 18:49 Wound Culture and Gram Stain Stat 06/07/18 18:53 Blood Culture Stat 06/07/18 20:16 Consult to Dietitian, Adult Routine Education, smoking cessation ONGOING 06/08/18 06:00 Basic Metabolic Panel Routine Complete Blood Count AUTO DIFF Routine 06/08/18 15:30 Vancomycin Trough Urgent Acetaminophen (Tylenol) 325 mg PO Q4H PRN PRN Reason: Pain, Mild (1-3) Albuterol (Ventolin Hfa) 2 puff INH Q4H PRN PRN Reason: Wheezing Dextrose (D50w) 25 gm IV PRN PRN PRN Reason: Hypoglycemia Enoxaparin Sodium (Lovenox) 40 mg SUBCUT DAILY NACHO Fluticasone Propionate (Flonase) 1 spray NASAL Q12H NACHO Last Admin: 06/07/18 21:13 Dose: Not Given Sodium Chloride (Normal Saline 0.45%) 1,000 mls @ 100 mls/hr IV CONT NACHO Last Admin: 06/07/18 22:10 Dose: 100 mls/hr Vancomycin HCl/Dextrose (Vancomycin) 1,000 mg in 200 mls @ 200 mls/hr IV Q6H [facility] Influenza Virus Vaccine (Flu Vaccine) 0.5 ml IM .ONCE ONE Stop: 06/08/18 09:01 Insulin Aspart (Novolog Flexpen) 0 unit SUBCUT ACHS [facility]; Protocol Last Admin: 06/07/18 21:11 Dose: 5 unit Insulin Glargine (Lantus Solostar (Pen)) 40 unit SUBCUT BEDTIME [facility] Last Admin: 06/07/18 21:12 Dose: 40 unit Loratadine (Claritin) 10 mg PO Q24H [facility] Last Admin: 06/07/18 21:13 Dose: Not Given Metformin HCl (Glucophage) 1,000 mg PO BIDWM [facility] Vancomycin HCl (Vancomycin Trough) 1 request MIS 1530 [facility] Stop: 06/08/18 15:31 Discontinued Medications Sodium Chloride (Normal Saline 0.9%) 1,000 mls @ 1,000 mls/hr IV BOLUS ONE Stop: 06/07/18 19:19 Last Admin: 06/08/18 00:24 Dose: Not Given Vancomycin HCl 2,000 mg/ (Sodium Chloride) 500 mls @ 250 mls/hr IV NOW ONE Stop: 06/07/18 18:54 Last Infusion: 06/07/18 20:12 Dose: 0 mls/hr Admin: 06/07/18 19:34 Dose: 250 mls/hr Sodium Chloride (Normal Saline 0.9%) 3,538.02 mls @ 1,179.34 mls/hr 30 ml/kg infuse over 3 hr (3538.02 ml) IV NOW ONE Stop: 06/07/18 22:05 Last Infusion: 06/07/18 20:12 Dose: 0 mls/hr Admin: 06/07/18 19:35 Dose: 1,179.34 mls/hr Influenza Virus Vaccine (Flu Vaccine) 0.5 ml IM .ONCE ONE Stop: 06/07/18 20:27 Last Admin: 06/08/18 00:25 Dose: Not Given Vital Signs - 8 hr 06/07/18 20:40 06/07/18 23:28 06/08/18 00:04 Temperature 98.7 F 98.7 F Pulse Rate 106 H 117 H Respiratory Rate 20 20 Blood Pressure 147/82 H 137/70 Pulse Oximetry 96 93 93 MDM - Wound/Laceration Lab Data Attestation: I reviewed the patient's lab results. Result diagrams: 06/07/18 18:30 06/07/18 18:30 Lab Results 06/07/18 06/07/18 06/07/18 Range/Units 18:30 18:30 18:30 WBC 13.1 H (4.5-11.0) X10^3/uL RBC 5.40 (4.5-5.9) X10^6/uL Hgb 16.2 (13.5-17.5) g/dL Hct 47.9 (41-53) % MCV 88.7 (80-100) fL MCH 30.0 (26-34) PG MCHC 33.8 (30-36) % RDW 14.9 H (11.6-14.8) % Plt Count 252 (150-400) X10^3/uL Neut % (Auto) 79.7 H (50-75) % Lymph % (Auto) 10.4 L (25-40) % [place] % (Auto) 7.7 (3-14) % Eos % (Auto) 1.8 L (2-4) % Baso % (Auto) 0.4 (0-2) % Neut # (Auto) 14410 H (9421-9425) /uL Lymph # (Auto) 1400 (8816-3317) /uL [place] # (Auto) 1000 H (0-900) /uL Eos # (Auto) 200 (0-450) /uL Baso # (Auto) 0 (0-100) /uL ESR 15 (0-15) MM/HR Sodium 133 L (137-145) mmol/L Potassium 4.3 (3.4-5.1) mmol/L Chloride 95 L (98-107) mmol/L Carbon Dioxide 28 (22-32) mmol/L BUN 17 (9-20) mg/dL Creatinine 0.80 (0.66-1.25) mg/dL Estimated GFR > 60.0 (>60) mL/min BUN/Creatinine Ratio 21.3 (6-22) Glucose 326 H (70-100) mg/dL Lactate (0.7-2.1) mmol/L Calcium 9.2 (8.4-10.2) mg/dL Total Bilirubin 0.5 (0.2-1.3) mg/dL AST 15 L (17-59) IU/L ALT 24 (21-72) IU/L Alkaline Phosphatase 114 (38-126) U/L C-Reactive Protein 22.6 H (<1.0) mg/dL Total Protein 7.8 (6.3-8.2) g/dL Albumin 4.1 (3.5-5.0) g/dL Globulin 3.7 (1.7-4.1) g/dL Albumin/Globulin Ratio 1.1 (1.0-2.8) Procalcitonin 0.08 (<0.5) ng/mL 06/07/ Range/Units 18:30 WBC (4.5-11.0) X10^3/uL RBC (4.5-5.9) X10^6/uL Hgb (13.5-17.5) g/dL Hct (41-53) % MCV (80-100) fL MCH (26-34) PG MCHC (30-36) % RDW (11.6-14.8) % Plt Count (150-400) X10^3/uL Neut % (Auto) (50-75) % Lymph % (Auto) (25-40) % [place] % (Auto) (3-14) % Eos % (Auto) (2-4) % Baso % (Auto) (0-2) % Neut # (Auto) (9828-4890) /uL Lymph # (Auto) (8774-4126) /uL [place] # (Auto) (0-900) /uL Eos # (Auto) (0-450) /uL Baso # (Auto) (0-100) /uL ESR (0-15) MM/HR Sodium (137-145) mmol/L Potassium (3.4-5.1) mmol/L Chloride (98-107) mmol/L Carbon Dioxide (22-32) mmol/L BUN (9-20) mg/dL Creatinine (0.66-1.25) mg/dL Estimated GFR (>60) mL/min BUN/Creatinine Ratio (6-22) Glucose (70-100) mg/dL Lactate 1.3 (0.7-2.1) mmol/L Calcium (8.4-10.2) mg/dL Total Bilirubin (0.2-1.3) mg/dL AST (17-59) IU/L ALT (21-72) IU/L Alkaline Phosphatase (38-126) U/L C-Reactive Protein (<1.0) mg/dL Total Protein (6.3-8.2) g/dL Albumin (3.5-5.0) g/dL Globulin (1.7-4.1) g/dL Albumin/Globulin Ratio (1.0-2.8) Procalcitonin (<0.5) ng/mL MDM Narrative Medical decision making narrative: Patient is afebrile. Has an elevated white count but a normal lactate normal procalcitonin. Patient is disheveled appearing. Very poor looking feet. I do have concerns about infection/osteomyelitis which is also mentioned in the note from his wound care visit. Review of his prior to wound cultures show GBS and MRSA. Both of them were susceptible to vancomycin. He was given vanc here in the emergency department. Patient was not hypotensive. Discussed case with Dr. Tong who agrees to admit the patient for further evaluation and IV antibiotics. Discussed the admission with the patient who expressed understanding. Discharge Plan Departure Patient Disposition: Home Clinical Impression: Diabetic foot ulcer Qualifiers: Diabetic foot ulcer location: midfoot Diabetes mellitus type: type 2 Laterality: left Non-pressure ulcer stage: unspecified non-pressure ulcer stage Qualified Code(s): E11.621 - Type 2 diabetes mellitus with foot ulcer Diabetes Qualifiers: Diabetes mellitus type: type 2 Diabetes mellitus nursing home insulin use: with tile presser use Diabetes mellitus complication status: with skin complications Diabetes mellitus complication detail: with foot ulcer Qualified Code(s): E11.621 - Type 2 diabetes mellitus with foot ulcer Discharge Date/Time: 06/07/18 20:14 Interventions: ED Discharge Assessment Last Done: 06/07/18 20:13 Admit Date/Time: 06/07/18 19:18 Admit Provider: Claudia Tong
[2018-06-07 18:55] LABS: Add Manual Diff / Slide Review NO; Basophils Absolute Auto 0 /uL (0-100); Basophils Percent Auto 0.4 % (0-2); Eosinophils Absolute Auto 200 /uL (0-450); Eosinophils Percent Auto 1.8 % (2-4); Hematocrit 47.9 % (41-53); Hemoglobin 16.2 g/dL (13.5-17.5); Lymphocytes Absolute Auto 1400 /uL (1100-4500); Lymphocytes Percent Auto 10.4 % (25-40); Mean Corpuscular HGB Conc 33.8 % (30-36); Mean Corpuscular Volume 88.7 fL (80-100); Monocytes Absolute Auto 1000 /uL (0-900); Monocytes Percent Auto 7.7 % (3-14); Neutrophils Absolute Auto 10500 /uL (1500-7000); Neutrophils Percent Auto 79.7 % (50-75); Platelet Count 252 X10^3/uL (150-400); Red Cell Distribution Width 14.9 % (11.6-14.8); White Blood Cell Count 13.1 X10^3/uL (4.5-11.0)
[2018-06-07 19:04] LABS: Erythrocyte Sedimentation Rate 15 MM/HR (0-15)
[2018-06-07 19:05] LABS: Lactate (Lactic Acid) 1.3 mmol/L (0.7-2.1)
[2018-06-07 19:09] LABS: Alanine Aminotransferase 24 IU/L (21-72); Albumin 4.1 g/dL (3.5-5.0); Albumin Globulin Ratio 1.1 (1.0-2.8); Alkaline Phosphatase 114 U/L (38-126); Aspartate Aminotransferase 15 IU/L (17-59); BUN Creatinine Ratio 21.3 (6-22); Bilirubin Total 0.5 mg/dL (0.2-1.3); Blood Urea Nitrogen 17 mg/dL (9-20); Calcium 9.2 mg/dL (8.4-10.2); Carbon Dioxide 28 mmol/L (22-32); Chloride 95 mmol/L (98-107); Estimated Glomerular Filt Rate > 60.0 mL/min (>60); Globulin 3.7 g/dL (1.7-4.1); Glucose 326 mg/dL (70-100); HEMOLYSIS < 15 (0-50); Potassium 4.3 mmol/L (3.4-5.1); Sodium 133 mmol/L (137-145); Total Protein 7.8 g/dL (6.3-8.2)
[2018-06-07 19:21] LABS: Procalcitonin 0.08 ng/mL (<0.5)
[2018-06-07 19:22] LABS: C-Reactive Protein Quant 22.6 mg/dL (<1.0)
[2018-06-07] MEDS: VANCOMYCIN 2,000 MG in SODIUM CHLORIDE 0.9% 500 ML 250 ML IV (19:34)
[2018-06-07] MEDS: SODIUM CHLORIDE 0.9% 3,538.02 ML 1179.34 ML IV (19:35)
--- NOTE | 2018-06-07 20:12 | PC.NURSE ---
vancomycin and normal saline to continue on acute care
[2018-06-07 20:17] VITALS: BMI 34.2
--- NOTE | 2018-06-07 20:37 | PC.ADMIT ---
[id number] Admission Note: The patient,David Givens,58 y/o, was given written information regarding hospital policies, unit procedures and contact persons. Patient's smoking status: Current every day smoker. Vital Signs - 8 hr 06/07/18 15:48 Temperature 99.1 F Pulse Rate 110 H Respiratory Rate 18 Blood Pressure 141/90 H Pulse Oximetry 94 Pt arrived from ED in his own wheelchair. Pt awake and alert, able to answer questions appropriately. Pt A&O, calm and cooperative.
[2018-06-07 20:40] VITALS: BP 147/82; PULSE 106; RESP 20; TEMP 37.1; O2SAT 96
[2018-06-07] MEDS: INSULIN ASPART 100 UNIT/ML INSULN PEN SUBCUT (21:11)
[2018-06-07] MEDS: INSULIN GLARGINE 100 UNIT/ML 3ML PEN 40 UNIT SUBCUT (21:12)
[2018-06-07] MEDS: SODIUM CHLORIDE 0.45% 1,000 ML 100 ML IV (22:10)
[2018-06-07 23:28] VITALS: BP 137/70; PULSE 117; RESP 20; TEMP 37.1; O2SAT 93
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
[2018-06-08] VITALS (7 sets, daily range): BP systolic 103–129; BP diastolic 62–81; PULSE 81–94; RESP 18–21; TEMP 36.7–37.4; O2SAT 92–95
--- NOTE | 2018-06-08 | DI.MRI.S_ITS ---
PROCEDURE: MRFOOT LT WO CON INDICATIONS: 2 ulcers, possibly tracking between, concern for osteo TECHNIQUE: Noncontrast sagittal T1 spin echo and T2 fast spin echo with fat saturation, long-axis T1 spin echo and T2 fast spin echo with fat saturation, short-axis T1 spin echo and T2 fast spin echo with fat saturation through the forefoot. Patient terminated study prior to administration of intravenous contrast. COMPARISON: [facility], MR, FOOT W&WO CONTRAST, 07/07/2016, 9:17. [facility], CR, XR FOOT LT MIN 3V, 05/04/2018, 10:10. FINDINGS: Image quality: Evaluation limited by absence of intravenous contrast and mild motion artifact. Bones and joints: There is mild bone marrow and periosteal edema along the plantar aspect of the 1st metatarsal head with mild cortical erosion. The findings likely represent osteomyelitis given the overlying ulcer. There is also mild edema within the base of the 1st proximal phalanx with cortical irregularity along the metatarsophalangeal joint. Findings are also suspicious for osteomyelitis. There is a minimal joint effusion at the 1st metatarsophalangeal joint with mild periventricular edema. Cortical irregularity is demonstrated along the articular surfaces of the 1st proximal phalanx and 1st metatarsal head. The findings are suspicious for osteomyelitis but the differential includes posttraumatic osteoarthritic changes. There is mild peripheral bone marrow edema with slight cortical erosion and periosteal edema along the medial plantar aspect of the medial cuneiform subjacent to the medial soft tissue ulcer. The findings are also suspicious for osteomyelitis. There is edema in the There is deformity of the midfoot with severe osteoarthritic changes redemonstrated consistent with Charcot foot. Soft tissues: There is a plantar soft tissue ulcer at the level of the 1st metatarsophalangeal joint measuring 1.8 x 1.3 cm. This extends to the underlying metatarsophalangeal joint and 1st proximal phalanx. There is associated soft tissue edema as well as peritendinous edema along the flexor hallucis longus tendon. There is a lobulated fluid collection medial to the 1st metatarsophalangeal joint measuring approximately 2.3 x 0.7 x 2.9 cm with adjacent soft tissue edema. Findings are suspicious for possible abscess with evaluation limited by absence of intravenous contrast. A small amount of tenosynovial fluid is demonstrated proximally contiguous with the collection. There is a soft tissue ulcer within the medial plantar aspect of the midfoot measuring approximately 3.0 x 1.6 cm. There is underlying edema extending to the subjacent medial cuneiform bone. No definite associated loculated fluid collection. The flexor and extensor tendons appear intact. There is severe fatty muscle atrophy in the foot. Mild generalized subcutaneous edema is also noted. IMPRESSION: 1. Plantar soft tissue ulcer at the level of the 1st metatarsophalangeal joint extending to the underlying bony structures consistent with associated osteomyelitis and suspected septic arthritis at the 1st metatarsophalangeal joint. 2. Lobulated fluid collection medial to the 1st metatarsophalangeal joint is suspicious for an abscess with evaluation limited by the absence of intravenous contrast. This appears contiguous with a small amount of tenosynovial fluid along the flexor hallucis longus tendon suspicious for septic tenosynovitis at the level of the 1st metatarsal shaft. 3. Soft tissue ulcer within the medial mid foot extending to the medial cuneiform associated with probable mild osteomyelitis. 4. Charcot foot foot redemonstrated. Dictated by: Ty Alvarado M.D. on 06/08/2018 at 11:56 Approved by: Ty Alvarado M.D. on 06/08/2018 at 12:49
--- NOTE | 2018-06-08 00:19 | PC.NURSE ---
Addendum entered by Mary Lou Dickey R.N. 06/08/18 02:39: Pt refused overnight blood sugar check. Original Note: Addendum entered by Mary Lou Dickey R.N. 06/08/18 02:11: Pt's wound previously grew MRSA on 05/04/18, pt put on contact precautions. Coordinator notified. Original Note: Shift note: Received pt from evening shift. Assisted ZULLY Jasmine with pt at shift change, pt sitting on edge of bed, demanding staff leave room so that he could use the urinal. Explained that staff must be present to assist pt, pt refused and d/t pt's agitation left room but stood by outside in the event of a fall. Pt able to remove own jeans and use urinal and return to bed. Pt was very frustrated and agitated with bed linen and pulling IV tubing in an attempt to straighten linen, assisted pt in getting comfortable. Pt refused a full skin assessment, stating that his leg wound was his only problem. Pt at this time refuses to change into hospital gown, still in own shirt. Returned to pt's room to complete physical assessment, pt remembered this RN and name and is intact memory arvizu and AxOx3, and was much calmer. Pt requested a fan for room and that door be left open despite ES working on office just outside of room. Pt reports that he has neuropathy up to his knees, denied pain, LS are notable for expiratory wheezing in upper lobes and diminished in lower lobes. Will continue to monitor for safety, pt acknowledges use of call light, bed alarm on for safety.
[2018-06-08] MEDS: VANCOMYCIN 1,000 MG/200 ML FROZ.PIGGY 200 MG IV ×4 (02:35→22:01)
--- NOTE | 2018-06-08 05:26 | PC.NURSE ---
PT refused vitals. He does not want to be woken up. He wants us to just let him sleep. I tried to check his blood sugar around and he refused that as well.
[2018-06-08 06:37] LABS: Add Manual Diff / Slide Review NO; Basophils Absolute Auto 100 /uL (0-100); Basophils Percent Auto 0.8 % (0-2); Eosinophils Absolute Auto 300 /uL (0-450); Eosinophils Percent Auto 2.8 % (2-4); Hematocrit 41.2 % (41-53); Hemoglobin 14.1 g/dL (13.5-17.5); Lymphocytes Absolute Auto 1600 /uL (1100-4500); Lymphocytes Percent Auto 14.3 % (25-40); Mean Corpuscular HGB Conc 34.3 % (30-36); Mean Corpuscular Hemoglobin 30.3 PG (26-34); Mean Corpuscular Volume 88.5 fL (80-100); Monocytes Absolute Auto 1000 /uL (0-900); Monocytes Percent Auto 8.8 % (3-14); Neutrophils Absolute Auto 8300 /uL (1500-7000); Neutrophils Percent Auto 73.3 % (50-75); Platelet Count 225 X10^3/uL (150-400); Red Blood Cell Count 4.66 X10^6/uL (4.5-5.9); Red Cell Distribution Width 14.7 % (11.6-14.8); White Blood Cell Count 11.4 X10^3/uL (4.5-11.0)
[2018-06-08 06:49] LABS: Blood Urea Nitrogen 12 mg/dL (9-20); Calcium 8.1 mg/dL (8.4-10.2); Carbon Dioxide 28 mmol/L (22-32); Chloride 100 mmol/L (98-107); Estimated Glomerular Filt Rate > 60.0 mL/min (>60); Glucose 241 mg/dL (70-100); HEMOLYSIS < 15 (0-50); Potassium 4.1 mmol/L (3.4-5.1); Sodium 135 mmol/L (137-145)
[2018-06-08] MEDS: METFORMIN HCL 500 MG TABLET 1000 MG PO ×2 (08:10→17:05)
[2018-06-08] MEDS: INSULIN ASPART 100 UNIT/ML INSULN PEN SUBCUT ×4 (08:11→20:38)
[2018-06-08] MEDS: ENOXAPARIN 40 MG/0.4 ML SYRINGE SUBCUT (08:12)
[2018-06-08] MEDS: INFLUENZA VACCINE 0.5 ML SYRINGE IM (08:13)
--- NOTE | 2018-06-08 08:39 | PM.HP.1 ---
History of Present Illness Date Patient Seen: 06/08/18 Time Patient Seen: 07:30 Chief complaint: LEFT FOOT INFECTION Narrative: Pt is a 58yo man with uncontrolled DM type 2, chronic LE ulcer, HTN and tobacco abuse who presented with concerns for infection with his LE ulcer. The pt reports that he was seen at wound care yesterday, and they told him to come to the ER for evaluation. He has no feeling in his feet, and states that he noticed the foot getting more red but thought that wound care would just take care of it. He has otherwise been feeling well recently. No fevers, chills. He denies any pain in his feet or legs, but also has absent sensation to approximately knee level. He states that he has been taking 40-50 units of Lantus insulin nightly. He does not check his blood sugars at home. Patient History Medical History Diabetes mellitus (Chronic) Chronic diabetic ulcer of foot determined by examination (Chronic) Presence of surgical screw in left hand (Chronic) CTS (carpal tunnel syndrome) (Resolved) Family & Social History Family History Father Diabetes mellitus Mother No problems noted. Social History: household members none Prior Living Arrangements Assisted Living Safety & Behavioral: Feels Safe in Current Yes Environment Been Physically Hurt or No Threatened By a Person Suicidal Ideation Description None Suicide Plan Description No Plan Tobacco & Substance use: Tobacco type cigarettes Smoking Status Current every day smoker alcohol intake former alcohol intake frequency other Substance Use Type does not use Meds Home Medications Medication Instructions Recorded Confirmed Type metformin [Glucophage] 1,000 mg PO BIDCC #120 tab 05/27/17 06/07/18 Rx lancets 30 gauge #100 each 07/22/17 06/07/18 Rx blood sugar diagnostic strips #100 each 10/20/17 06/07/18 Rx insulin glargine (U-100) 100 40 unit SUBCUT HS #1 each 10/20/17 06/07/18 Rx unit/mL (3 mL) subcutaneous pen pen needle, diabetic 32 gauge x #100 each 04/07/18 06/07/18 Rx / Allergies Allergy/AdvReac Type Severity Reaction Status Date / Time hydrocodone Allergy Mild ITCHING Verified 06/07/18 15:51 oxycodone [OXYCODONE] Allergy Mild ITCHING Verified 06/07/18 15:51 codeine AdvReac Mild STOMACH Verified 06/07/18 15:51 UPSET Review of Systems Constitutional Constitutional: Denies chills, Denies fatigue, Denies fever(s), Denies poor appetite and Denies weakness Cardiovascular Cardiovascular: Denies chest pain, Denies irregular heart rhythm, Reports leg sores, Reports leg swelling, Denies rapid, pounding, or irregular heartbeat and Denies shortness of breath Respiratory Respiratory: Denies cough, Denies dyspnea and Denies wheezing Gastrointestinal Gastrointestinal: Denies abdominal pain, Denies constipation and Denies nausea Neurologic Neurologic: Denies weakness Endocrine Endocrine: Denies fatigue and Denies palpitations Allergic/Immunologic Allergic/Immunologic: Denies wheezing Exam Vital Signs (past 8 hours): - 06/08/18 07:54 Temperature 99.1 F Pulse Rate 94 H Respiratory Rate 18 Blood Pressure 122/69 Pulse Oximetry 93 Oxygen Delivery Method Room Air Oxygen Flow Rate 0 Narrative Exam Narrative: Gen: NAD, laying comfortably in bed, appears disheveled with poor hygiene HEENT: normocephalic, atraumatic, sclera clear Neck: No LAD, no JVD CV: RRR, no murmurs Resp: clear to auscultation bilaterally Abd: soft, nontender, nondistended, normoactive bowel sounds Neuro: grossly intact Ext: poor foot hygiene, bilateral LE with 1+ pitting edema to mid-calf level, absent sensation to knee level, left foot with significant erythema around medial aspect of foot within prior lines drawn, approximately 3cm diameter ulcer medial aspect of foot with significant exudate present, uncertain depth, superior and lateral to this on bottom of foot with approximately 1.5cm diameter ulcer of uncertain depth, does have palpable fluctuance under skin between ulcers; pulses intact Objective Labs Result Diagrams: 06/08/18 06:05 06/08/18 06:05 Labs: Laboratory Results - last 24 hr 06/07/18 06/07/18 06/07/18 18:30 18:30 18:30 WBC 13.1 H RBC 5.40 Hgb 16.2 Hct 47.9 MCV 88.7 MCH 30.0 MCHC 33.8 RDW 14.9 H Plt Count 252 Neut % (Auto) 79.7 H Lymph % (Auto) 10.4 L [place] % (Auto) 7.7 Eos % (Auto) 1.8 L Baso % (Auto) 0.4 Neut # (Auto) 61029 H Lymph # (Auto) 1400 [place] # (Auto) 1000 H Eos # (Auto) 200 Baso # (Auto) 0 ESR 15 Sodium 133 L Potassium 4.3 Chloride 95 L Carbon Dioxide 28 BUN 17 Creatinine 0.80 Estimated GFR > 60.0 BUN/Creatinine Ratio 21.3 Glucose 326 H Lactate Calcium 9.2 Total Bilirubin 0.5 AST 15 L ALT 24 Alkaline Phosphatase 114 C-Reactive Protein 22.6 H Total Protein 7.8 Albumin 4.1 Globulin 3.7 Albumin/Globulin Ratio 1.1 Procalcitonin 0.08 06/07/18 06/08/18 06/08/18 18:30 06:05 06:05 WBC 11.4 H RBC 4.66 Hgb 14.1 Hct 41.2 MCV 88.5 MCH 30.3 MCHC 34.3 RDW 14.7 Plt Count 225 Neut % (Auto) 73.3 Lymph % (Auto) 14.3 L [place] % (Auto) 8.8 Eos % (Auto) 2.8 Baso % (Auto) 0.8 Neut # (Auto) 8300 H Lymph # (Auto) 1600 [place] # (Auto) 1000 H Eos # (Auto) 300 Baso # (Auto) 100 ESR Sodium 135 L Potassium 4.1 Chloride 100 Carbon Dioxide 28 BUN 12 Creatinine 0.80 Estimated GFR > 60.0 BUN/Creatinine Ratio 15.0 Glucose 241 H Lactate 1.3 Calcium 8.1 L Total Bilirubin AST ALT Alkaline Phosphatase C-Reactive Protein Total Protein Albumin Globulin Albumin/Globulin Ratio Procalcitonin Assessment & Plan Assessment & Plan narrative: Pt is a 58yo man with uncontrolled DM type 2, chronic LE ulcer, HTN and tobacco abuse who presented with concerns for infection with his LE ulcer from wound care. The pt denies any specific complaints today. 1) LE Ulcer: Chronic, however with acute worsening and concern for infection. Previously with Group B Streptococcus and MRSA infections. There is concern for tracking between the two ulcers, and with uncertain depth concern for osteomyelitis. - MRI foot to evaluate extent of ulcers and for osteo - Pending results of MRI, will likely need consult to ortho for surgical debridement - Continue IV Vancomycin, dosing per pharmacy - Wound care consulted 2) DM Type 2: Uncontrolled. Pt states taking insulin regularly, however question this based on blood sugars at presentation and response to insulin, and A1C from March. - Increase Lantus to 50 units qPM - ACHS sugar checks - Continue high dose sliding scale coverage DVT prophylaxis: Lovenox FEN: Diabetic diet Code: Full code Dispo: Pending completion of above work-up and appropriate IV antibiotic treatment. Anticipate possible need for prolonged IV antibiotics if osteo is present. Quality VTE Deep Vein Thrombosis/Pulmonary Embolism Present on Admission: No
--- NOTE | 2018-06-08 11:02 | CM.DANOTE ---
Addendum entered by Sylwia Mahmood R.N. 06/08/18 14:47: Did speak to Ana Lau at [facility] wound clinic regarding wound care. Confirmed that patient has been going to would clinic routinely, and has kept appts. Ana stated that the clinic was encouraging him to go to the ER from there on Thursday, but he did not go right away. Stated that he may need parts counterman antibiotics, secondary to infection. Called and updated Tracy, and she stated that patient can't go there with any type of line, since they do not have 24 hour nursing. Will need to look into custodial for patient before discharge, if patient is going to need fdc antibiotics. Original Note: Addendum entered by Sylwia Mahmood R.N. 06/08/18 12:16: Noted wound care visits that patient has been going to [facility]. Left message at wound clinic for someone to call back regarding wound care. Original Note: DCP: Case received, EMR reviewed and met with patient. Introduced self and role. DCP template completed with information currently available, as well as from Tracy in admissions at [facility]. Patient is a 58 year old male who admitted yesterday evening to the care of the hospitalist team. PCP: Dr. Morales Payer: confirmed: [facility]/Medicaid. Patient came to hospital via vehicle due to concerns about his foot being infected. Met briefly with patient, who is in isolation. Unkept appearance, significant wound to right foot. Patient not conversive. Would only answer yes. He was eating his breakfast. Briefly spoke with Dr. Tong about this patient, since he has been here several times before, due to non-compliance with wound care, blood sugars, etc. Spoke to Tracy in admissions at [facility]. She stated that patient refuses most care. He will only allow staff to change his dressings to his wounds upon his terms. He does his own medications, according to Trcay, and gives himself his own insulin. He is a smoker, and uses a power chair for most mobility. He declines help with showers, toileting as well. He has his own private room. She mentioned that they had to talk him in several times to come to the hospital, due to his wounds looking infected. Patient is also non-compliant about keeping his wound appts. She also stated that he has some challenging behaviors, he will yell, if his food is not prepared the way he wants it. P: DCP to follow closely. Plan to return to [place] will be dependent upon if he needs parts counterman antibiotics. He is [place], so it would be necessary to find placement in this case, that accepts insurance. [facility] does accept [place]. Barrier could be patient's non-compliance with care. Sylwia Mahmood RN/Transfer Engineer
--- NOTE | 2018-06-08 11:11 | PC.NURSE ---
Addendum entered by Magdalena Haider R.N. 06/08/18 14:11: MRI of foot without contrast was read, per Dr Tong we do not need to attempt MRI with contrast. Dr Funes to consult. Original Note: Pt unable to complete foot MRI, patient unable to lie flat for the time needed for study to be completed. Dr Tong called and informed, will try again later with premedicating with ativan.
[2018-06-08] MEDS: PIPERACILLIN-TAZO 3.375 GM/50 ML FROZ.PIGGY IV ×2 (13:29→20:37)
[2018-06-08 16:52] LABS: Vancomycin Trough 19.2 ug/mL (10-20)
[2018-06-08] MEDS: SODIUM CHLORIDE 0.9% FLUSH 10 ML IV (20:37)
[2018-06-08] MEDS: INSULIN GLARGINE 100 UNIT/ML 3ML PEN 50 UNIT SUBCUT (20:38)
--- NOTE | 2018-06-08 22:17 | PC.NURSE ---
lilly shift. assumed care of pt from outgoing shift. Pt does not use call garces. pt hollers and moans and groans. pt states he cannot get comfortable that his pants are too tight. offered a gown and pt was compliant. changed with adaptix to foot. abd pad and kirlex wrapped and taped to secure. foot dressing changed. md in later in shift to inspect and get another culture and dressing was removed. no specific orders to redress. Pt bed alarm on. stand pivot. pt is wheel chair bound. Pt asks for snacks. Pt refuses things at times. pt cooperative and kind with me. will continue to monitor.
--- NOTE | 2018-06-08 23:21 | P.CONS_ITS ---
History of Present Illness Date Patient Seen: 06/08/18 Time Patient Seen: 23:04 Chief complaint: LEFT FOOT INFECTION Reason for consult: Orthopedic evaluation Narrative: this is a 58-year-old noncompliant gentleman who has a longstanding history of left foot infections and numbness. He says that he has been seen both at the wound clinic at [facility] as well as at [facility] for about 5 years for ongoing problems with his left foot and left foot ulcers. He has a history of poorly or uncontrolled diet diabetes, hypertension tobacco abuse and neuropathy in his foot. He reportedly takes about 40-50 units of Lantus insulin nightly. He says that his ft was having difficulty with healing the was placed I believe and a total contact cast at Wound Clinic continued to have problems with breakdown and has failed some local debridement in the wound clinic. [facility] Medical History Diabetes mellitus (Chronic) Chronic diabetic ulcer of foot determined by examination (Chronic) Presence of surgical screw in left hand (Chronic) CTS (carpal tunnel syndrome) (Resolved) Surgical History History of carpal tunnel release (Resolved) History of hand surgery (Resolved) History of umbilical hernia repair (Resolved) Status post left foot surgery (Resolved) Status post left foot surgery (Resolved) Family History (Updated 09/29/17 @ 10:46 by Sadaf Ramirez) Father Diabetes mellitus Mother No problems noted. Social History household members: none Smoking Status: Current every day smoker alcohol intake: former Family History Father Diabetes mellitus Mother No problems noted. Social History household members: none Smoking Status: Current every day smoker alcohol intake: former Meds Home Medications Medication Instructions Recorded Confirmed Type metformin [Glucophage] 1,000 mg PO BIDCC #120 tab 05/27/17 06/07/18 Rx lancets 30 gauge #100 each 07/22/17 06/07/18 Rx blood sugar diagnostic strips #100 each 10/20/17 06/07/18 Rx insulin glargine (U-100) 100 40 unit SUBCUT HS #1 each 10/20/17 06/07/18 Rx unit/mL (3 mL) subcutaneous pen pen needle, diabetic 32 gauge x #100 each 04/07/18 06/07/18 Rx Allergies Allergy/AdvReac Type Severity Reaction Status Date / Time hydrocodone Allergy Mild ITCHING Verified 06/07/18 15:51 oxycodone [OXYCODONE] Allergy Mild ITCHING Verified 06/07/18 15:51 codeine AdvReac Mild STOMACH Verified 06/07/18 15:51 UPSET Review of Systems Review of Systems He notes that he feels uncomfortable, he is relatively noncompliant with review of systems and is combative and somewhat angry, denies real recent severe fevers or chills, notes that he does not have significant feeling in his left foot Exam Vital Signs (past 8 hours): - 06/08/18 16:21 06/08/18 18:00 06/08/18 20:49 Temperature 99.4 F 98.0 F Pulse Rate 89 94 H Respiratory Rate 20 21 Blood Pressure 124/71 129/81 Pulse Oximetry 93 94 92 Oxygen Delivery Method Room Air Oxygen Flow Rate 0 Narrative Exam Narrative: disheveled gentleman who is lying in his bed moving around in throwing a bank blanket over his head, oriented, HEENT is benign neck supple, cor regular rate and rhythm lungs clear abdomen benign, decreased sensation in bilateral lower extremities stocking distribution severe on the left, left lower extremity has a open ulcer at the base of his great toe MTP joint and obvious collapse of his midfoot with an open ulcer at the tarsal metatarsal joints with gross purulent drainage and exposed tendon and bone, no evidence of ascending cellulitis or erythema in the left leg, calf is soft, he has severe decreased sensation into his left foot, Objective Labs Result Diagrams: 06/08/18 06:05 06/08/18 06:05 Labs: Laboratory Results - last 24 hr 06/08/18 06/08/18 06/08/18 06:05 06:05 14:10 WBC 11.4 H RBC 4.66 Hgb 14.1 Hct 41.2 MCV 88.5 MCH 30.3 MCHC 34.3 RDW 14.7 Plt Count 225 Neut % (Auto) 73.3 Lymph % (Auto) 14.3 L [place] % (Auto) 8.8 Eos % (Auto) 2.8 Baso % (Auto) 0.8 Neut # (Auto) 8300 H Lymph # (Auto) 1600 [place] # (Auto) 1000 H Eos # (Auto) 300 Baso # (Auto) 100 Sodium 135 L Potassium 4.1 Chloride 100 Carbon Dioxide 28 BUN 12 Creatinine 0.80 Estimated GFR > 60.0 BUN/Creatinine Ratio 15.0 Glucose 241 H Calcium 8.1 L Vancomycin Trough 19.2 Assessment & Plan Assessment & Plan narrative: impression diabetic foot ulcer with open ulcers under the great toe MTP and over the tarsal metatarsal joint, Charcot foot, severe noncompliance and poor compliance with diabetic management, smoker with nonhealing foot ulcer. He is not acutely septic today. He is actively draining some purulent material from his tarsal metatarsal region where he has collapse of his mid arch and an open ulcer. He is potentially a candidate for additional local debridement with an attempt at continued foot salvage. He says that he has been going to wound clinics for about 5 years. Clearly he may ultimately require a BKA. I will consult with Dr. Jesus our bankruptcy law specialist to assist in management. The patient was irritable and somewhat angry and is unhappy with his chronic problem. A deep culture was obtained and sent to the lab. His MRI was reviewed as was his plain x-rays which show severe collapse of the midfoot.
--- NOTE | 2018-06-09 00:12 | PC.NURSE ---
Addendum entered by Mary Lou Dickey R.N. 06/09/18 06:44: Pt allowed one set of vital signs, declined blood sugar check at 0200 and AM labs. Original Note: Shift note: Received pt from evening shift. Pt allowed a very minimal assessment of heart, lungs, and bowel tones. Pt at this time is refusing to allow vital signs to be taken stating y'all are waking me every hour! Y'all need to let me sleep for a few hours. You're going to kill me with irritation. Pt is using urinal to void while in bed, and is very short with staff when approaching the door. Will attempt to reapproach during shift for at least one set of vital signs.
[2018-06-09] MEDS: PIPERACILLIN-TAZO 3.375 GM/50 ML FROZ.PIGGY IV ×4 (01:57→17:03)
[2018-06-09] MEDS: VANCOMYCIN 1,000 MG/200 ML FROZ.PIGGY 200 MG IV ×4 (02:39→21:21)
[2018-06-09 06:26] VITALS: BP 139/84; PULSE 92; RESP 19; TEMP 37.1; O2SAT 92
[2018-06-09 08:00] VITALS: O2SAT 97
[2018-06-09] MEDS: METFORMIN HCL 500 MG TABLET 1000 MG PO ×2 (08:38→17:00)
[2018-06-09] MEDS: INSULIN ASPART 100 UNIT/ML INSULN PEN SUBCUT ×4 (08:40→21:16)
--- NOTE | 2018-06-09 08:42 | P.PN_ITS ---
Subjective Date Patient Seen: 06/09/18 Time Patient Seen: 07:39 Interval history: Patient is frustrated to be in the hospital and wants to leave. He is anxious about will happen with his foot. Does not remember conversation with Dr. Funes last night. Blames the wound care clinic for his foot getting worse. States his blood sugars have been in the 200s when he checks and that he is patience ing his metformin and insulin as prescribed. Exam Vital Signs (past 8 hours): - 06/09/18 06:26 Temperature 98.7 F Pulse Rate 92 H Respiratory Rate 19 Blood Pressure 139/84 Pulse Oximetry 92 Oxygen Delivery Method Room Air Oxygen Flow Rate 0 Narrative Exam Narrative: General: Disheveled man appearing older than stated age with poor hygiene. Awake and alert, no acute distress. HEENT: NCAT, EOMI, moist oral mucosa, edentulous CV: Regular rate and rhythm, no murmurs, rubs or gallops Lungs: CTAB, no wheezes, rales, or rhonchi Abdomen: Obese. Soft, nontender; bowel tones active; no hepatosplenomegaly Extremities: On the medial aspect of the left foot is a 3 cm ulcer with exudate, surrounding erythema, and warmth. On the plantar surface of the left foot as a 1.5 cm ulcer. Absent sensation to knees bilaterally. Trace edema bilateral lower extremities. Objective Labs Result Diagrams: 06/08/18 06:05 06/08/18 06:05 Labs: Laboratory Results - last 24 hr 06/08/18 14:10 Vancomycin Trough 19.2 Assessment & Plan Assessment & Plan narrative: 58-year-old man with uncontrolled type 2 diabetes, medical noncompliance, charcot foot, chronic left lower extremity ulcer and tobacco use admitted with an open diabetic foot ulcer and evidence of osteomyelitis on MRI. LLE diabetic foot ulcer - Appreciate consultation by Dr. Funes with Orthopedics. Discussed care with her today. She has asked Dr. Mendosa, foot and ankle specialist, to see him tomorrow. - Continue vancomycin and Zosyn while awaiting wound culture results. Currently growing group B strep and staph aureus. DM Type 2 - Continue metformin, increase Lantus to 55 units qPM - Monitor blood sugars - Continue high dose sliding scale coverage Tobacco use - Nicotine patch DVT prophylaxis: Lovenox FEN: Diabetic diet Code: Full code Encouraged patient to shower. He was under the impression he should not because of his foot and I assured him nursing could help him with his foot. Dispo: Pending possible surgery and appropriate IV antibiotic treatment. Patient is at high risk of leaving AMA as he is quite irritable in the hospital. He agreed to stay until Dr. Mendosa can see him and make recommendations. Quality VTE Deep Vein Thrombosis/Pulmonary Embolism Present on Admission: No
[2018-06-09] MEDS: ENOXAPARIN 40 MG/0.4 ML SYRINGE SUBCUT (08:45)
[2018-06-09] MEDS: SODIUM CHLORIDE 0.9% FLUSH 10 ML IV ×2 (08:45→21:17)
[2018-06-09 11:36] VITALS: PULSE 90; RESP 16; TEMP 36.7; O2SAT 94
--- NOTE | 2018-06-09 13:51 | DIET.PN ---
Received consult request for education r/t uncontrolled DM. Per H&P pt uses lantus at home but doesn't check blood glucose. Pt was sleeping w/first visit; still laying on side w/2nd visit; deferred discussing diabetes diet. May try again tomorrow if pt more receptive.
--- NOTE | 2018-06-09 15:34 | PC.NURSE ---
Infection: SThe doctor said they might cut off my leg. Pt is visibly upset. Periods of calm followed by periods of restlessness and profanity. Highly anxious and wants to be sure his door isn't closed. Has complied with his treatment today. Wants to do things his way and this was allowed. Cont w/poc.
[2018-06-09 16:58] VITALS: BP 126/72; PULSE 95; RESP 18; O2SAT 96
[2018-06-09] MEDS: ACETAMINOPHEN 325 MG TABLET PO (17:13)
--- NOTE | 2018-06-09 17:42 | PM.PN.1 ---
Subjective Date Patient Seen: 06/09/18 Time Patient Seen: 17:44 Interval history: Patient is a 58yo M with history of poorly controlled insulin dependent diabetes who is HD#2 for diabetic ulcers on his left foot. The wound on the plantar surface of the foot has been present intermittently for approximately 4 years in various stages of healing and the wound on the medial foot has been present for the last week after a cast removal. He denies any pain associated with the foot. He has been OOB to the bathroom but has otherwise been in bed. He denies any SOB, chest pain. Exam Vital Signs (past 8 hours): - 06/09/18 11:36 06/09/18 16:58 Temperature 98.0 F Pulse Rate 90 95 H Respiratory Rate 16 18 Blood Pressure 126/72 Pulse Oximetry 94 96 Oxygen Delivery Method Room Air Oxygen Flow Rate 0 Narrative Exam Narrative: Disheveled 58yo M male lying in bed. Extrem Other: Swelling and erythema of the foot, worst surrounding the ankle. A 1-2cm wound on the plantar surface of the foot under the great toe with no surrounding redness or erythema or visible drainage. A second 3-4cm wound on the medial surface of the foot with surrounding warmth, erythema with some purulent drainage. Minimal sensation in the left LE. Able to dorisflex and plantarflex. Objective Labs Result Diagrams: 06/08/18 06:05 06/08/18 06:05 Assessment & Plan Assessment & Plan narrative: Patient is to continue current management. His preliminary cultures of the wound have returned staph aureus, group B strep and gram nagative bacilli. He was seen yesterday by Dr. Funes who discussed the possibility of foot salvage vs BKA. He will be seen tomorrow by Dr. Woo, a foot and ankle specialist, for further planning. Quality VTE Deep Vein Thrombosis/Pulmonary Embolism Present on Admission: No
[2018-06-09 18:10] VITALS: O2SAT 94
[2018-06-09 20:32] LABS: Vancomycin Trough 13.7 ug/mL (10-20)
[2018-06-09] MEDS: INSULIN GLARGINE 100 UNIT/ML 3ML PEN 55 UNIT SUBCUT (21:16)
[2018-06-09] MEDS: VANCOMYCIN TROUGH 1 REQUEST MISC (21:19)
--- NOTE | 2018-06-09 22:14 | PC.NURSE ---
1500- assumed care of pt from outgoing shift. Pt asleep at this time. arouses to voice. pt cooperative with nursing staff. did get agitated with IV pole beeping as AC IV site was occluding. changed IV site. antibiotics infused without difficulty. pt educated and cooperative. Pt wants to take a shower but after dinner. given meds per MAR. pt compliant. discussed vanco trough and what lab values are and pt cooperative and interested. Pt appreciates knowing what to expect. pt has been very cooperative today. he did apologize for blowing up earlier about the IC pole beeping. pt kind and appreciative of staff. 2100- pt had shower. was able to walk from bed to br. steady. denies pain to left foot. pt foot wrapped with optifoam, abd pad and kirlex secured with tape. Pt liked that wrapping choice. pt appreciates and thanks us many times for helping him shower. he stated that he felt much better after the shower. Pt likes knowing about antibiotics and understands the point of them. will continue to monitor.
[2018-06-09 23:00] VITALS: O2SAT 95
[2018-06-10] VITALS (7 sets, daily range): BP systolic 108–141; BP diastolic 69–76; PULSE 73–98; RESP 16–20; TEMP 36.7–36.9; O2SAT 93–95
--- NOTE | 2018-06-10 | DI.US.S_ITS ---
PROCEDURE: US ARTERIAL DUPLEX LE BI INDICATIONS: left foor ulcer TECHNIQUE: Color and pulse Doppler interrogation was performed of both lower extremity arterial systems, with image documentation. COMPARISON: [facility], US, ARTERIAL LOW.EXTREM.BILATERAL, 06/06/2014, 9:37. FINDINGS: Normal-appearing, triphasic waveforms are seen throughout. The flow velocities are likewise within normal limits. No focal area of increased flow velocity is seen to suggest a focal stenosis. Antegrade flow is confirmed to the distal aspects of each of the trifurcation vessels. Scattered atherosclerotic plaque can be seen. IMPRESSION: No hemodynamically significant stenosis can be seen. Dictated by: Stew Thorne M.D. on 06/10/2018 at 8:27 Approved by: Stew Thorne M.D. on 06/10/2018 at 8:28
--- NOTE | 2018-06-10 | DI.RAD.S_ITS ---
PROCEDURE: XR FOOT LT MIN 3V INDICATIONS: left foot ulcer TECHNIQUE: 3 views of the foot were acquired. COMPARISON: [facility], CR, FOOT 3V LEFT, 04/17/2017, 8:52. [facility], MR, MR FOOT LT WO CON, 06/08/2018, 10:27. [facility], CR, XR FOOT LT MIN 3V, 05/04/2018, 10:10. FINDINGS: Bones: No fractures or dislocations. No suspicious bony lesions. No bony erosion deep to the skin ulcer. Severe neuropathic arthropathy. Soft tissues: No tibiotalar joint effusion. Achilles tendon appears normal. Lucency in the anterior plantar soft tissues consistent with ulceration. IMPRESSION: 1. No bony erosion deep to the skin ulcer. If clinical symptoms persist or clinical suspicion for osteomyelitis is high, a triple phase bone scan or MRI is suggested for further evaluation. 2. Severe neuropathic arthropathy. Dictated by: Aaron Whaley M.D. on 06/10/2018 at 17:20 Approved by: Aaron Whaley M.D. on 06/10/2018 at 17:22
--- NOTE | 2018-06-10 00:38 | PC.NURSE ---
VSS. A&Ox3. pt wanting to sleep. self positioning in bed for comfort. kerlex dressing to left ankle/foot CDI. pt denies any needs/questions. using urinal to void. instructed to notify staff prior to activity for assist. call light in reach. contact precautions maintained.
[2018-06-10] MEDS: VANCOMYCIN 1,000 MG/200 ML FROZ.PIGGY 200 MG IV ×4 (01:55→20:32)
--- NOTE | 2018-06-10 05:52 | PC.NURSE ---
Addendum entered by Alysa Gaming R.N. 06/10/18 07:00: IV ABX infusing. Pt requesting wound care to assess ulcers again. I dont know if they think amputation is such a good idea, there is a lot of treatment invested in these feet Will notify wound care of request. Original Note: [id number] Assumed care of Pt, who is requesting Not to be bothered iscusssed need for assessment and meds overnight, Pt nory, but allowing brief chat with staff and some educationre: POC. Call light is in reach.
[2018-06-10] MEDS: PIPERACILLIN-TAZO 3.375 GM/50 ML FROZ.PIGGY IV ×2 (06:52)
[2018-06-10] MEDS: ACETAMINOPHEN 325 MG TABLET PO ×2 (06:53→16:55)
[2018-06-10 06:57] LABS: Add Manual Diff / Slide Review NO; Basophils Absolute Auto 100 /uL (0-100); Eosinophils Absolute Auto 400 /uL (0-450); Eosinophils Percent Auto 4.6 % (2-4); Hematocrit 42.4 % (41-53); Hemoglobin 14.5 g/dL (13.5-17.5); Lymphocytes Absolute Auto 1400 /uL (1100-4500); Lymphocytes Percent Auto 17.6 % (25-40); Mean Corpuscular HGB Conc 34.2 % (30-36); Mean Corpuscular Hemoglobin 30.4 PG (26-34); Mean Corpuscular Volume 88.9 fL (80-100); Monocytes Absolute Auto 800 /uL (0-900); Monocytes Percent Auto 10.3 % (3-14); Neutrophils Absolute Auto 5300 /uL (1500-7000); Neutrophils Percent Auto 66.5 % (50-75); Platelet Count 261 X10^3/uL (150-400); Red Blood Cell Count 4.77 X10^6/uL (4.5-5.9); Red Cell Distribution Width 15.1 % (11.6-14.8); White Blood Cell Count 7.9 X10^3/uL (4.5-11.0)
[2018-06-10 07:07] LABS: BUN Creatinine Ratio 12.5 (6-22); Blood Urea Nitrogen 10 mg/dL (9-20); Calcium 8.8 mg/dL (8.4-10.2); Carbon Dioxide 26 mmol/L (22-32); Chloride 101 mmol/L (98-107); Estimated Glomerular Filt Rate > 60.0 mL/min (>60); Glucose 260 mg/dL (70-100); HEMOLYSIS < 15 (0-50); Hemoglobin A1C% w Est Avg Glu 12.1 % (4.0-6.0); Sodium 136 mmol/L (137-145)
--- NOTE | 2018-06-10 07:38 | PM.CN ---
History of Present Illness Date Patient Seen: 06/10/18 Time Patient Seen: 07:38 Chief complaint: LEFT FOOT INFECTION Reason for consult: Left foot diabetic infection Requesting provider: Fatemeh Funes Narrative: The patient is a 58 yo pt DM 2 uncontrolled with charcot L foot. he has a history of a L plantar 1st MTP ulcer x 4 years. and has seen for this. He apparently had increased redness in the foot recently and was seen at . he had a couple weeks of casting and apparently developed a medial arch blister or ulce that was debrided but redness increased and infection was suspected. Pt was seen in ER and admitted to . cx with mrsa and klebsi. I was asked to consult regarding debridement /salvage, recon options. of note the pt had a [facility] but per report may have been more living is his car and has had poor compliance and an unstable social situation. He has also been quite irritable with multiple staff members during his stay. he is a daily smoker. [facility] Medical History Diabetes mellitus (Chronic) Chronic diabetic ulcer of foot determined by examination (Chronic) Presence of surgical screw in left hand (Chronic) CTS (carpal tunnel syndrome) (Resolved) Surgical History History of carpal tunnel release (Resolved) History of hand surgery (Resolved) History of umbilical hernia repair (Resolved) Status post left foot surgery (Resolved) Status post left foot surgery (Resolved) Family History Father Diabetes mellitus Mother No problems noted. Social History household members: none Smoking Status: Current every day smoker alcohol intake: former Family History Father Diabetes mellitus Mother No problems noted. Social History household members: none Smoking Status: Current every day smoker alcohol intake: former Meds Home Medications Medication Instructions Recorded Confirmed Type metformin [Glucophage] 1,000 mg PO BIDCC #120 tab 05/27/17 06/07/18 Rx lancets 30 gauge #100 each 07/22/17 06/07/18 Rx blood sugar diagnostic strips #100 each 10/20/17 06/07/18 Rx insulin glargine (U-100) 100 40 unit SUBCUT HS #1 each 10/20/17 06/07/18 Rx unit/mL (3 mL) subcutaneous pen pen needle, diabetic 32 gauge x #100 each 04/07/18 06/07/18 Rx Allergies Allergy/AdvReac Type Severity Reaction Status Date / Time hydrocodone Allergy Mild ITCHING Verified 06/07/18 15:51 oxycodone [OXYCODONE] Allergy Mild ITCHING Verified 06/07/18 15:51 codeine AdvReac Mild STOMACH Verified 06/07/18 15:51 UPSET Review of Systems Review of Systems All systems reviewed & are unremarkable except as noted in HPI and below Exam Vital Signs (past 8 hours): - 06/10/18 00:00 06/10/18 06:38 Temperature 98.1 F Pulse Rate 98 H 90 Respiratory Rate 16 17 Blood Pressure 120/76 141/70 H Pulse Oximetry 95 95 Oxygen Delivery Method Room Air Oxygen Flow Rate 0 Const General: disheveled Nutritional Appearance: average body habitus Orientation: alert and oriented x3 Other: irritable, frustrated HENMT Head: normocephalic and atraumatic Eyes General: appearance normal, both eyes and all related structures Resp Effort & Inspection: normal respiratory effort Auscultation: clear to auscultation bilaterally Cardio Rate: regular rate Rhythm: regular rhythm GI Inspection: normal to inspection Extrem Other: L foot with mild swelling and erythema at medial ulcer approx 3x3cm with exudate. no proximal tracking cellultis or subq gas. dense neuropathy. toe pinks. brisk cap refill. more chronic appearing plantar 1st MTP ulcer with black eschar w/o erythema of drainage. soft calf Objective Imaging left foot xr: My impression: severe midfoot and 1st MTP neuroarthropathy- charcot with evidence ulceration Labs Result Diagrams: 06/10/18 06:30 06/10/18 06:30 Labs: Laboratory Results - last 24 hr 06/09/18 06/10/18 06/10/18 19:34 06:30 06:30 WBC 7.9 RBC 4.77 Hgb 14.5 Hct 42.4 MCV 88.9 MCH 30.4 MCHC 34.2 RDW 15.1 H Plt Count 261 Neut % (Auto) 66.5 Lymph % (Auto) 17.6 L [place] % (Auto) 10.3 Eos % (Auto) 4.6 H Baso % (Auto) 1.0 Neut # (Auto) 5300 Lymph # (Auto) 1400 [place] # (Auto) 800 Eos # (Auto) 400 Baso # (Auto) 100 Sodium 136 L Potassium 4.0 Chloride 101 Carbon Dioxide 26 BUN 10 Creatinine 0.80 Estimated GFR > 60.0 BUN/Creatinine Ratio 12.5 Glucose 260 H Hemoglobin A1c Calcium 8.8 Vancomycin Trough 13.7 06/10/18 06:30 WBC RBC Hgb Hct MCV MCH MCHC RDW Plt Count Neut % (Auto) Lymph % (Auto) [place] % (Auto) Eos % (Auto) Baso % (Auto) Neut # (Auto) Lymph # (Auto) [place] # (Auto) Eos # (Auto) Baso # (Auto) Sodium Potassium Chloride Carbon Dioxide BUN Creatinine Estimated GFR BUN/Creatinine Ratio Glucose Hemoglobin A1c 12.1 H Calcium Vancomycin Trough Assessment & Plan Assessment & Plan narrative: the patient has left foot diabetic ulceration with infection. He has a Charcot arthropathy. He has a medial arch ulceration approximately 3 x 3 cm and a smaller plantar 1st MTP ulceration with eschar. His erythema surrounding the medial ulceration. This is faint around the midfoot does not track towards or above the ankle. Calf is soft. Patient has a dense neuropathy. Skin is warm and well perfused. hgb a1c is 12.1% vascular arterial doppler with no significant stenosis. therefore reasonable healing potential. MRI with suspected abscess plantar medial and give bone location likely osteomyelitis. Discussed options for treatment. Of note patient is quite restless and irritable this morning is very frustrated at his situation and the fact that he thought he was doing pretty well except plantar ulcer over the last 4 years. It seems that the medial ulceration started or got worse after a period of casting/ wound care. I discussed with the patient that this is a very difficult problem and that deformity neuropathy predispose the patient for risk for ulceration blisters in flexion and for infections that may require amputation. Patient is adamant against any amputation. I discussed that we are not there yet but these the issues can make the patient very sick and this can be required if the infection worsens or spreads. We also talked briefly about deformity correction frame type options however the patient has a relatively unstable social situation and with his demeanor and general history and behavior think he would be a poor candidate for framing. I discussed with the patient that the initial procedure would be an irrigation debridement bone biopsy procedure and that he would likely need serial wound care negative pressure wound therapy and/or repeat operative trip if infection persists. We also discussed likely requirement of long-term IV antibiotics and infectious disease consultation as well as stable environment to receive long-term IV antibiotics. The patient has agreed to an irrigation debridement procedure will plan this for tomorrow afternoon. Patient will be NPO after midnight will get a new set of x-rays. His hemoglobin A1c is pending. Will get vascular studies. pt indicated for I&D , possible exostectomy and bone biopsy and possible wound vac.
--- NOTE | 2018-06-10 09:03 | P.PN_ITS ---
Subjective Date Patient Seen: 06/10/18 Time Patient Seen: 09:03 Interval history: ?I'm miserable.? Patient continues to be frustrated staying in the hospital but is willing to stay for care. No specific complaints. He feels better when he is informed and aware of the plan. Interested in trying a nicotine patch today. Exam Vital Signs (past 8 hours): - 06/10/18 06:38 06/10/18 08:34 Temperature 98.1 F Pulse Rate 90 Respiratory Rate 17 Blood Pressure 141/70 H Pulse Oximetry 95 94 Oxygen Delivery Method Room Air Oxygen Flow Rate 0 Narrative Exam Narrative: General: Disheveled man appearing older than stated age. Improved hygiene from yesterday. Awake and alert, no acute distress. HEENT: NCAT, EOMI, moist oral mucosa CV: Regular rate and rhythm, no murmurs, rubs or gallops Lungs: CTAB, no wheezes, rales, or rhonchi Extremities: Left foot is wrapped, did not remove the dressing today. No lower extremity edema. Objective Labs Result Diagrams: 06/10/18 06:30 06/10/18 06:30 Labs: Laboratory Results - last 24 hr 06/09/18 06/10/18 06/10/18 19:34 06:30 06:30 WBC 7.9 RBC 4.77 Hgb 14.5 Hct 42.4 MCV 88.9 MCH 30.4 MCHC 34.2 RDW 15.1 H Plt Count 261 Neut % (Auto) 66.5 Lymph % (Auto) 17.6 L [place] % (Auto) 10.3 Eos % (Auto) 4.6 H Baso % (Auto) 1.0 Neut # (Auto) 5300 Lymph # (Auto) 1400 [place] # (Auto) 800 Eos # (Auto) 400 Baso # (Auto) 100 Sodium 136 L Potassium 4.0 Chloride 101 Carbon Dioxide 26 BUN 10 Creatinine 0.80 Estimated GFR > 60.0 BUN/Creatinine Ratio 12.5 Glucose 260 H Hemoglobin A1c Calcium 8.8 Vancomycin Trough 13.7 06/10/18 06:30 WBC RBC Hgb Hct MCV MCH MCHC RDW Plt Count Neut % (Auto) Lymph % (Auto) [place] % (Auto) Eos % (Auto) Baso % (Auto) Neut # (Auto) Lymph # (Auto) [place] # (Auto) Eos # (Auto) Baso # (Auto) Sodium Potassium Chloride Carbon Dioxide BUN Creatinine Estimated GFR BUN/Creatinine Ratio Glucose Hemoglobin A1c 12.1 H Calcium Vancomycin Trough Assessment & Plan Assessment & Plan narrative: 58-year-old man with uncontrolled type 2 diabetes, medical noncompliance, charcot foot, chronic left lower extremity ulcer and tobacco use admitted with an open diabetic foot ulcer and evidence of osteomyelitis on MRI. LLE diabetic foot ulcer - Appreciate consultation by Dr. Mendosa. Plan for irrigation debridement and bone biopsy tomorrow. Vascular studies are pending to assist healing prognosis. - Final wound culture with MRSA, Klebsiella pneumoniae and group B strep. Spoke with Dr. Rosalie Nieves with Infectious Disease at [facility] over the phone. Reviewed culture and sensitivities with her. She recommends continued vancomycin for MRSA and cefazolin 2g q8h (good bone penetration) to c over Klebsiella pneumonia as well as group B strep. Due to osteomyelitis, patient will need 6 weeks of IV antibiotics. PICC line requested today. Specific instructions upon discharge - Vancomycin and cefazolin via picc line x6 weeks - Vanco trough Thursday/, goal 15-20 - BUN/Cr Thursday/ - CBC, CRP, ESR weekly - Follow up in Infectious Disease Clinic DM Type 2 - A1C 12.1 which is actually the best it has been on record - Continue metformin, increase Lantus to 60 units qPM - Monitor blood sugars - Continue high dose sliding scale coverage Tobacco use - Nicotine patch if desired DVT prophylaxis: Lovenox FEN: Diabetic diet Code: Full code Dispo: Will need SNF on discharge for IV antibiotics. Time Spent With Patient Time with patient: Greater than 35 minutes (Spent reviewing culture results and sensitivities as well as coordinating care with Dr. Mendosa and Dr. Nieves. ) Quality VTE Deep Vein Thrombosis/Pulmonary Embolism Present on Admission: No
[2018-06-10] MEDS: ENOXAPARIN 40 MG/0.4 ML SYRINGE SUBCUT (09:11)
[2018-06-10] MEDS: FLUTICASONE 120 SPRAY/16 GM SPRAY.SUSP NASAL ×2 (09:11→20:42)
[2018-06-10] MEDS: NICOTINE 7 MG PATCH TOP (09:12)
[2018-06-10] MEDS: SODIUM CHLORIDE 0.9% FLUSH 10 ML IV ×3 (09:12→21:14)
[2018-06-10] MEDS: INSULIN ASPART 100 UNIT/ML INSULN PEN SUBCUT ×4 (09:13→20:44)
[2018-06-10] MEDS: METFORMIN HCL 500 MG TABLET 1000 MG PO ×2 (09:13→16:51)
[2018-06-10] MEDS: CEFAZOLIN 2 GM/100 ML FROZ.PIGGY IV ×2 (09:56→16:51)
--- NOTE | 2018-06-10 11:36 | DI.RAD.S_ITS ---
PROCEDURE: XR CHEST FOR PICC 1V INDICATIONS: PICC placement COMPARISON: [facility], , XR CHEST 2V, 05/18/2018, 10:30. FINDINGS: PICC was placed by the intravenous therapy team from the right side. Fluoroscopic spot film demonstrates tip of PICC in the mid SVC. Accounting for differences in patient positioning, cardiomediastinal contours remain stable. Stable appearance of diffuse interstitial prominence, likely chronic. No focal airspace disease. Minimal diffuse opacities overlying the bilateral costophrenic angles most likely related to overlying soft tissues of the chest wall. No pneumothorax. IMPRESSION: Tip of PICC lies within the mid SVC. Dictated by: Nolan Cameron M.D. on 06/10/2018 at 13:50 Approved by: Nolan Cameron M.D. on 06/10/2018 at 13:52
[2018-06-10] MEDS: INSULIN GLARGINE 100 UNIT/ML 3ML PEN 60 UNIT SUBCUT (20:43)
[2018-06-10] MEDS: LORATADINE 10 MG TABLET PO (20:46)
--- NOTE | 2018-06-10 22:23 | PC.NURSE ---
183- pt had an outburst that he had called and been waiting for 20 minutes (unfortunately no call garces was pressed) and had been waving around him cane and screaming and swearing. I evie tin there and was able to calm him down. he did not make any threats or swings at staff. pt gets frustrated and anxious if he hasn't seen someone in a while. Pt alert and oriented. discussed plan of care with pt. pt compliant. pt states he will let them check his sugar tonight around 2 to make sure he doesnt drop too much. pt 1 PA to chair/bed. uses urinal. 1999- changed pt dressing. saline flush to clean and pat dry. when i was feeling around for the redness at the periwound skin. a huge stream of pussy looking liquid (yellow/green thin) came out of distal end of wound. this came from when pressure was applied to big toe. pressure applied and finally stopped draining. cleaned again with saline. air dry. wrapped in ABD pad and kirlex and netting to keep in place. pt was appreciative. pt apologized for earlier and stated he hoped everyone who helped him today gets home safe to their loved ones. discussed tonight and pt npo status pt cooperative and compliant. pt asked if I would be here tomorrow to check on him. Pt stated he would be good tonight and tomorrow for surgery that he was appreciative of us. will continue to monitor.
[2018-06-11] VITALS (15 sets, daily range): BP systolic 105–145; BP diastolic 52–100; PULSE 66–111; RESP 16–21; TEMP 36.3–36.7; O2SAT 93–98
--- NOTE | 2018-06-11 | PATH_ITS ---
[facility] Accession Number: [id number] . 01 Material submitted: . LEFT FOOT MEDIAL CUNEIFORM . 02 Diagnosis: Left Foot Medial Cuneiform Bone: Acute and chronic osteomyelitis. [facility]/06/16/2018 . 02 Electronically signed: . Mikey Diaz MD, Pathologist NPI- [id number] . 01 Gross description: . Received in formalin, labeled left foot medial cuneiform, are multiple fragments of dias-wallis gritty bone (1.5 x 1.5 x 0.3 cm in aggregate). Filtered, decalcified, and entirely submitted in cassette A1. ([id number]) /MRV . 02 Pathologist provided ICD-10: M86.672 . 02 CPT . [id number], [id number] Performed at: 01 [facility] [address] [id number] MD Ty Osorio MD Phone: [phone] Performed at: 02 [facility] [address] [place], [place] [id number] MD Natividad Andrews MD Phone: [phone]
[2018-06-11] MEDS: CEFAZOLIN 2 GM/100 ML FROZ.PIGGY IV ×3 (00:30→20:26)
--- NOTE | 2018-06-11 00:43 | PC.NURSE ---
Pt. sleeping will monitor & assess when he wakes up.
[2018-06-11] MEDS: VANCOMYCIN 1,000 MG/200 ML FROZ.PIGGY 200 MG IV ×3 (02:00→12:59)
[2018-06-11 07:13] LABS: BUN Creatinine Ratio 16.3 (6-22); Blood Urea Nitrogen 13 mg/dL (9-20); Carbon Dioxide 28 mmol/L (22-32); Chloride 101 mmol/L (98-107); Estimated Glomerular Filt Rate > 60.0 mL/min (>60); Glucose 281 mg/dL (70-100); HEMOLYSIS < 15 (0-50); Potassium 4.3 mmol/L (3.4-5.1); Sodium 137 mmol/L (137-145)
--- NOTE | 2018-06-11 07:46 | PM.PN.1 ---
Subjective Date Patient Seen: 06/11/18 Time Patient Seen: 07:35 Interval history: Patient denies complaints today. His goal is to sleep all day until surgery. Pleased his vascular ultrasound was normal. Had his picc line placed yesterday without difficulty. Exam Vital Signs (past 8 hours): - 06/11/18 01:50 06/11/18 02:10 06/11/18 06:31 Temperature 98.0 F 97.8 F Pulse Rate 90 84 Respiratory Rate 20 21 Blood Pressure 120/76 138/78 Pulse Oximetry 93 93 94 Oxygen Delivery Method Room Air Oxygen Flow Rate 0 General: Older man sleeping in bed, wakens easily and answers questions appropriately. HEENT: NCAT, EOMI, edentulous CV: Regular rate and rhythm, no murmurs, rubs or gallops Lungs: CTAB, no wheezes, rales, or rhonchi Extremities: Left foot bandage clean and dry. No lower extremity edema. Objective Labs Result Diagrams: 06/10/18 06:30 06/11/18 06:55 Labs: Laboratory Results - last 24 hr 06/11/18 06:55 Sodium 137 Potassium 4.3 Chloride 101 Carbon Dioxide 28 BUN 13 Creatinine 0.80 Estimated GFR > 60.0 BUN/Creatinine Ratio 16.3 Glucose 281 H Calcium 9.0 Assessment & Plan Assessment & Plan narrative: 58-year-old man with uncontrolled type 2 diabetes, medical noncompliance, charcot foot, chronic left lower extremity ulcer and tobacco use admitted with an open diabetic foot ulcer and evidence of osteomyelitis on MRI. LLE diabetic foot ulcer - Normal lower extremity arterial US - Appreciate surgery with Dr. Mendosa this afternoon - Wound MRSA, Klebsiella pneumoniae and group B strep. Continue cefazolin and vancomycin, will need six weeks of IV antibiotics. Progress note from 06/10/18 with specific instructions from Infectious Disease. DM Type 2 - Blood sugars remain high - Continue metformin, increase Lantus to 65 units qPM - Continue high dose sliding scale coverage Tobacco use - Nicotine patch DVT prophylaxis: Lovenox FEN: NPO today Code: Full code Dispo: Will need SNF on discharge for IV antibiotics. Quality VTE Deep Vein Thrombosis/Pulmonary Embolism Present on Admission: No
[2018-06-11] MEDS: INSULIN ASPART 100 UNIT/ML INSULN PEN SUBCUT ×3 (09:18→22:40)
[2018-06-11] MEDS: SODIUM CHLORIDE 0.9% FLUSH 10 ML IV (09:19)
[2018-06-11] MEDS: NICOTINE 7 MG PATCH TOP (09:19)
[2018-06-11] MEDS: ENOXAPARIN 40 MG/0.4 ML SYRINGE SUBCUT (09:19)
--- NOTE | 2018-06-11 14:27 | PC.NURSE ---
Day shift: Pt has been resting/sleeping all day. [facility] and he is stated that he is not happy about having to wait all day for the procedure. Call light in reach.
--- NOTE | 2018-06-11 17:35 | CM.DPC ---
DCP; continued: Case discussed in Team Rounds. Pt is going to the OR at some point today with consulting ortho surgeon Dr. Ramirez for I&D of his L foot.. DCP team to continue to follow. ? if pt can return to [facility] or if will need some snf time (? IV antibiotics). Note: pt would need [facility] ayala for a snf setting.
[2018-06-11] MEDS: LACTATED RINGERS 1,000 ML 42 ML IV (18:15)
--- NOTE | 2018-06-11 18:15 | PM.PREOP ---
Pre-operative Note Interval Note History & Physical reviewed/Exam performed by Physician: Yes Changes to H&P: Yes H&P completed within 30 days and has changed as indicated here:: Pt has discussed leaving AMA several times but ultimately decided to stay for medical care and surgery
--- NOTE | 2018-06-11 18:16 | PC.NURSE ---
Pt. transferred to PACU for surgery. Pt. was resting comfortably in bed. Vitals stable.
--- NOTE | 2018-06-11 18:44 | SUR.OPER ---
Supine on padded OR bed, head on pillow, arms secured on padded arm boards at <90 degrees abduction, legs uncrossed, safety belt at thigh, tape over blanket over left lower leg, right leg in sterile field.
--- NOTE | 2018-06-11 19:27 | SUR.OPER ---
PT RECOVERED IN OR2 BY LIZABETH JONES TO MRSA
--- NOTE | 2018-06-11 20:00 | P.OP_ITS ---
Operative Date/Time/Diagnoses Date of procedure: 06/11/18 Time of procedure: 19:57 Pre-op diagnosis: 1. Left Charcot foot 2. Diabetes type 2 uncontrolled with hyperglycemia and foot ulcer with osteomyelitis Post-op diagnosis: same Procedure & Clinicians Procedure: 1. Irrigation debridement left foot diabetic ulceration with osteomyelitis debridement of bone and soft tissue and tendon 2. Partial medial cuneiform exostectomy and bone biopsy, deep 3. Application wound VAC 1st 50 sq cm Same procedure as scheduled: Yes Indications: Patient is a 58-year-old male with uncontrolled diabetes type 2 in left foot Charcot neural arthropathy. Patient has a left foot medial abscess with exposed bone and draining purulence. The patient has an MRI consistent with the osteomyelitis and abscess. Patient has been indicated for irrigation and debridement. The patient has been on scheduled IV antibiotics. Further reconstruction and staging options were discussed with the patient however due to his long history of medical noncompliance and unstable social situation he is not a candidate for this at this time. Additionally the patient is a everyday smoker. We did discuss limited irrigation debridement local wound care and wound VAC use as well as IV antibiotics for the treatment of the wound and osteomyelitis. Discussed offloading. The risks benefits and alternatives to the procedure were discussed with the patient in detail including but not limited to recurrent infection, need for additional procedures, further collapse and deformity, and need for additional procedures including amputation, persistent pain, DVT, PE, cardiopulmonary complications up to and including . Patient expressed consent to proceed and informed consent was signed. Surgeon: Radha Mendosa Click Yes if Unassisted: Yes Anesthesia Type: Sedation Operative Notes Findings: Exposed bone and tendon at the 3 x 3 cm medial wound. purulence was expressed at the distal aspect of the wound. additionally is a smaller 1 cm ulceration plantar at the 1st metatarsal head with the eschar. No drainage or erythema around this ulceration. Closure Type: non-primary Specimen(s): other (Tissue and bone for culture) Prosthetic devices, grafts, tissues, transplants, or devices: Wound VAC Estimated Blood Loss (mL): 20 Blood products transfused: none Tourniquet time (min): 0 Procedure in detail: The patient was seen in the preoperative area site of surgery was marked and informed consent confirmed. patient was taken to the operating room and placed on the surgical table all bony prominences were well padded.. the procedure was performed under sedation. The left lower extremity was prepped and draped in the standard sterile fashion. a formal time-out procedure was performed confirming the patient's side and site of surgery and presence of informed consent. The patient was on scheduled IV antibiotics. All were in agreement. Attention was turned to the left lower extremity wound. a tourniquet was not used during this procedure. The round 3 x 3 cm medial ulceration over the medial cuneiform was extended slightly proximally and distally over an area of fluctuance distally as demarcated on the MRIs location of abscess. There was purulence draining from the distal aspect of the wound. Upon incision there was additional purulence that was expressed tracking along the medial plantar fascia toward of the 1st metatarsal. Culture swabs and tissue were sent for microbiology. This was probed and originally was thought to likely connect with the plantar 1st metatarsal ulceration however this was not apparent intraoperatively. the incision was also extended slightly proximally again exploring for additional abscess loculations however on none were found proximally. a large area of the plantar fascia was exposed and necrotic this was debrided. Additionally soft tissue off the exposed medial cuneiform was necrotic and debrided as well. A small slice of the medial cuneiform was removed using the T PS saws and exostectomy and bone specimen. Additionally the rongeur was used to smooth off this area. Care was taken to protect the insertion of the tibialis anterior. next of the plantar 1st MTP ulceration was addressed the black eschar was removed and the curette used to breach debride the ulceration. This did track directly down to the 1st metatarsal. There was no evidence of tracking or tunneling proximally or distally at this location. once the ulcers were debrided the re-irrigated with 6 L of saline using the cysto tubing. Hemostasis was achieved. no further purulence was expressed and the wound VAC was cut and fit to the wound and placed. A small piece of Adaptic was placed between the 2 wounds in a bridging pad used. The wound VAC was set to 125 mm of mercury. Good suction was obtained. Once this was obtained a dressing was placed with Webril and Micheal wrap. this completed the procedure the drapes removed and the patient was awoken from anesthesia and taken to recovery area in good condition. All counts were correct. There no immediate complications from this procedure. Complications: none Condition: stable Disposition: Acute Care Plan for aftercare: The patient will be nonweightbearing on the left lower e xtremity as much as possible. The patient may use a walking boot to offloading shoe for this or another offloading device such as a wheelchair crutches walker or knee scooter. The patient may put the heel or foot down for balance but is encouraged to offload as much as possible while attempting wound healing. The patient will have wound VAC in place. The patient will need wound VAC changes every 3 days. This can be done at a sniff or at the wound Care Center. Patient should continue his IV antibiotics at least a 6 week course and recommendations per the Infectious Disease team. Patient should follow up in Orthopedic Clinic in approximately 2 weeks to make sure he is making progress on his wound care.
--- NOTE | 2018-06-11 20:02 | SUR.PHASEI ---
BEDSIDE REPORT AND HAND OFF OF CARE TO ZULLY JOHNSON. WOUND VAC REMAINS ON AND PLUGGED IN UPON ARRIVAL TO ROOM. IV SITE PATENT. PT WITH OUT C/O PAIN OR NAUSEA,VSS
[2018-06-11] MEDS: METFORMIN HCL 500 MG TABLET 1000 MG PO (20:27)
[2018-06-11] MEDS: ACETAMINOPHEN 325 MG TABLET PO (20:29)
--- NOTE | 2018-06-11 21:04 | PM.PNPO.1 ---
Subjective Date Patient Seen: 06/11/18 Time Patient Seen: 21:04 Interval history: Postop day 0 status post irrigation debridement left Charcot foot ulceration placement of wound VAC Intraoperative cultures and bone biopsy sent to microbiology ---plan of care-ortho 1. Patient has wound VAC in place this will need to be changed approximately every 3 days or 72 hours. Next change can be done on the floor Thursday by Ortho PA physician or wound care. OR if patient discharging to sniff wound VAC changes can be conducted at [facility]. Wound size approximately 5 x 3 cm depth 0.5 cm, 2nd lesion 1 cm by 1 cm x 1 cm deep. 2. Patient may be touchdown weight-bearing but should try to be off the foot or nonweightbearing as much as possible to facilitate healing. 3. May use Cam Walker or offloading that shoe for immobilization and protection 4. Continue IV antibiotics for Infectious Disease recommendations. 5. Follow up in ortho clinic approximately 2 weeks to assess progress and wound healing. Exam Vital Signs (past 8 hours): - 06/11/18 19:26 06/11/18 19:31 06/11/18 19:36 Temperature 97.5 F L Pulse Rate 110 H 108 H 111 H Respiratory Rate 20 18 18 Blood Pressure 112/76 115/77 113/78 Pulse Oximetry 96 96 95 06/11/18 19:41 Temperature Pulse Rate 106 H Respiratory Rate 18 Blood Pressure 118/77 Pulse Oximetry 96 Oxygen Delivery Method Room Air Oxygen Flow Rate 0 Objective Labs Result Diagrams: 06/10/18 06:30 06/11/18 06:55 Labs: Laboratory Results - last 24 hr 06/11/18 06:55 Sodium 137 Potassium 4.3 Chloride 101 Carbon Dioxide 28 BUN 13 Creatinine 0.80 Estimated GFR > 60.0 BUN/Creatinine Ratio 16.3 Glucose 281 H Calcium 9.0 Assessment & Plan Post-op Postoperative Procedures Operation Date: 06/11/18 14:15 Actual Procedures Side Surgeon p I&D Foot diabetic ulcer/Infection, bone biopsy Left Radha Mendosa MD Quality VTE Deep Vein Thrombosis/Pulmonary Embolism Present on Admission: No
[2018-06-11] MEDS: INSULIN GLARGINE 100 UNIT/ML 3ML PEN 65 UNIT SUBCUT (22:40)
[2018-06-12] VITALS (7 sets, daily range): BP systolic 103–133; BP diastolic 66–87; PULSE 87–93; RESP 18–20; TEMP 36.6–36.9; O2SAT 93–96
[2018-06-12] MEDS: CEFAZOLIN 2 GM/100 ML FROZ.PIGGY IV ×3 (01:02→18:03)
[2018-06-12] MEDS: VANCOMYCIN 1,000 MG/200 ML FROZ.PIGGY 200 MG IV ×2 (01:48→10:32)
--- NOTE | 2018-06-12 03:50 | PC.NURSE ---
NOC Note At approx 0320 pt became very irritated by the wound vac alarm blockage and the IV Pump alarm when IV ABX was completed. Pt yelled out and cursed. Pt complaining that he can't get any sleep. Offered ear plugs and pt declined. Pt remained agitated and slammed his door closed and yelled out. Staff was instructed to give the patient space and remain out of his room if at all possible. at 0345 patient used the call light to request that the alarm on the wound vac be turned off again. He remained irritable at that time and staff promptly left the room.
[2018-06-12] MEDS: SODIUM CHLORIDE 0.9% FLUSH 10 ML IV ×2 (10:34→21:24)
[2018-06-12] MEDS: ENOXAPARIN 40 MG/0.4 ML SYRINGE SUBCUT (10:34)
[2018-06-12] MEDS: METFORMIN HCL 500 MG TABLET 1000 MG PO ×2 (10:34→17:08)
[2018-06-12] MEDS: NICOTINE 7 MG PATCH TOP (10:35)
--- NOTE | 2018-06-12 11:25 | PM.PNPO.1 ---
Subjective Date Patient Seen: 06/12/18 Time Patient Seen: 11:25 Interval history: Patient is 58 year old male with history of poorly controlled diabetes who is HD#5 and POD#1 s/p I&D of left foot diabetic foot ulcer/charcot foot with Dr. Mendosa. He reports no pain. He is combative during exam and is agitated over the beeping of the wound vac that is in place and refuses to answer any additional questions. Exam Vital Signs (past 8 hours): - 06/12/18 09:06 06/12/18 09:19 Temperature 98.5 F Pulse Rate 89 89 Respiratory Rate 20 20 Blood Pressure 133/87 Pulse Oximetry 93 93 Oxygen Delivery Method Room Air Oxygen Flow Rate 0 Narrative Exam Narrative: Combative 58 year old male intermittently thrashing in bed. Extrem Other: Wound vac in place over left foot with overlying dressing with 10ml of drainage in the reservoir. Motor intact in lower extremity. Objective Labs Result Diagrams: 06/10/18 06:30 06/11/18 06:55 Assessment & Plan Post-op Postoperative Procedures Operation Date: 06/11/18 14:15 Actual Procedures Side Surgeon p I&D Foot diabetic ulcer/Infection, bone biopsy Left Radha Mendosa MD Postoperative day: 1 Postoperative plan narrative: Patient is highly combative during exam and was unwilling to answer questions. Wound vac dressing was adjusted to alter occlusion. Next wound vac change should be Thursday per Dr. Mendosa. Patient will require transfer to SNF, possibly [facility] or [facility]. Spoke with care management who said it is unlikely this will happen prior to Thursday. Quality VTE Deep Vein Thrombosis/Pulmonary Embolism Present on Admission: No
[2018-06-12] MEDS: INSULIN ASPART 100 UNIT/ML INSULN PEN SUBCUT ×2 (13:17→17:04)
--- NOTE | 2018-06-12 13:33 | PM.PN.1 ---
Subjective Date Patient Seen: 06/12/18 Time Patient Seen: 11:54 Interval history: Patient is lying in bed. Is calm now but was agitated when his wound vac was acting up. No complaints at this time. Exam Vital Signs (past 8 hours): - 06/12/18 09:06 06/12/18 09:19 Temperature 98.5 F Pulse Rate 89 89 Respiratory Rate 20 20 Blood Pressure 133/87 Pulse Oximetry 93 93 Oxygen Delivery Method Room Air Oxygen Flow Rate 0 Narrative Exam Narrative: Older man sleeping in bed, wakens easily and answers questions appropriately. HEENT: NCAT, EOMI, edentulous CV: Regular rate and rhythm, no murmurs, rubs or gallops Lungs: CTAB, no wheezes, rales, or rhonchi Extremities: Left foot bandaged with wound vac draining serosanguinous fluid Objective Labs Result Diagrams: 06/10/18 06:30 06/11/18 06:55 Assessment & Plan Assessment & Plan narrative: 58-year-old man with uncontrolled type 2 diabetes, medical noncompliance, charcot foot, chronic left lower extremity ulcer and tobacco use admitted with an open diabetic foot ulcer and evidence of osteomyelitis on MRI. Post op day 1 from irrigation, debridement, and bone biopsy. LLE diabetic foot ulcer - Wound MRSA, Klebsiella pneumoniae and group B strep. Continue cefazolin and vancomycin, will need six weeks of IV antibiotics. Progress note from 06/10/18 with specific instructions from Infectious Disease. - Appreciate Dr. Mendosa's management. - Await new culture results to see if this changes antibiotic selection. DM Type 2 - Blood sugars significantly improved yesterday while NPO - Continue metformin, will transition lantus to twice daily 30/35 dosing. - Continue high dose sliding scale coverage Moderate COPD - at baseline Tobacco use - Nicotine patch Anxiety - prn lorazepam DVT prophylaxis: Lovenox FEN: continue carb controlled diet, Code: Full code Dispo: Will need SNF on discharge for IV antibiotics. Appreciate care management's efforts on this. Quality VTE Deep Vein Thrombosis/Pulmonary Embolism Present on Admission: No
--- NOTE | 2018-06-12 15:09 | CM.DPC ---
DCP Cont: Discussed patient with Dr. Gray. Continuing to look at placement for resident. Called and spoke to Argenis at [facility]. She stated that they may not be able to accept patient secondary to his insurance, however, they may be able to make a case for a one time contract with [facility], since he resides at [facility], which is sister company of [facility]. Argenis mentioned coming over to assess patient on Thursday. At this time, patient has wound vac, and is on two different IV antibiotics. Called Lynn at [facility] for second choice possibility. Stated that [place]/Medicaid, does not pay much for what patient needs, but she can take a look at it. Went ahead and faxed over her face sheet, med sheets, history and physical, as well as latest prog note. Asked about private rooms, and she is unsure if he could get a private room at this time. ANGIE Atkins had spoken to patient this morning, as he was having some periods of yelling out, and agitation. She was able to have a discussion with him regarding going to half-way facility after discharge, before going back to [facility]. She stated that he may consider going to [facility]. P: DCP to continue to follow closely. Patient will need half-way, due to high acuity needs, but unsure which facility will accept. Will continue to try other facilities if both these can't accomidate. Sylwia Mahmood RN/Front Desk Team Member
[2018-06-12] MEDS: VANCOMYCIN 1,500 MG in SODIUM CHLORIDE 0.9% 500 ML 333.333 ML IV (16:19)
[2018-06-12] MEDS: ACETAMINOPHEN 325 MG TABLET PO (21:21)
[2018-06-12] MEDS: INSULIN GLARGINE 100 UNIT/ML 3ML PEN 30 UNIT SUBCUT (21:25)
[2018-06-12] MEDS: LORazepam 0.5 MG TABLET PO (21:28)
--- NOTE | 2018-06-12 22:13 | PC.NURSE ---
1500- assumed care of pt from outgoing shift. Pt awake and alert. pt wound vac alarming blockage tried to reposition pt. track pad changed and dressing bridged to top of foot. no drainage out but good suction. pt dissatisfied with this and the fact that there was no drainage once we changed the dressing. dressing changed again, back to the original placement. heal wrapped with petroleum gauze and wrapped in kirlex from cracked heal from sy. pt sugars have been more controlled today. lantus changed. will continue to monitor. pt refuses to have bed alarm on.
[2018-06-12] MEDS: VANCOMYCIN 1,500 MG in SODIUM CHLORIDE 0.9% 500 ML 333 ML IV (23:52)
[2018-06-13] VITALS (9 sets, daily range): BP systolic 97–134; BP diastolic 62–76; PULSE 64–97; RESP 16–20; TEMP 36.2–36.9; O2SAT 93–97
--- NOTE | 2018-06-13 00:21 | PC.NURSE ---
2300- Pt sleeping at this time; L foot wound covered w/ black foam and sealed. Wound Vac set continuous @ 125. Pt refused assessment from this RN, pleasant at this time he stated he just didn't want to be bothered. Remains on RA w/ R upper arm PICC saline locked, needs new peripheral IV however pt refused new IV & removal of old one. 0000- IV Vanco hung into R upper arm single lumen PICC w/o difficulties. 0600- No changes thru the night, pt allowed the staff to check his BG & VS.
[2018-06-13] MEDS: CEFAZOLIN 2 GM/100 ML FROZ.PIGGY IV ×3 (02:36→19:57)
--- NOTE | 2018-06-13 02:56 | PC.NURSE ---
PT refused vitals. Let him sleep.
[2018-06-13 05:52] LABS: Add Manual Diff / Slide Review NO; Basophils Absolute Auto 100 /uL (0-100); Basophils Percent Auto 0.9 % (0-2); Eosinophils Absolute Auto 500 /uL (0-450); Eosinophils Percent Auto 4.3 % (2-4); Hematocrit 41.4 % (41-53); Hemoglobin 14.1 g/dL (13.5-17.5); Lymphocytes Absolute Auto 1600 /uL (1100-4500); Mean Corpuscular Hemoglobin 29.9 PG (26-34); Mean Corpuscular Volume 88.2 fL (80-100); Monocytes Absolute Auto 800 /uL (0-900); Monocytes Percent Auto 7.5 % (3-14); Neutrophils Absolute Auto 7800 /uL (1500-7000); Neutrophils Percent Auto 72.3 % (50-75); Platelet Count 297 X10^3/uL (150-400); Red Cell Distribution Width 14.8 % (11.6-14.8); White Blood Cell Count 10.8 X10^3/uL (4.5-11.0)
[2018-06-13 06:05] LABS: BUN Creatinine Ratio 18.9 (6-22); Blood Urea Nitrogen 17 mg/dL (9-20); Calcium 8.8 mg/dL (8.4-10.2); Carbon Dioxide 27 mmol/L (22-32); Chloride 104 mmol/L (98-107); Estimated Glomerular Filt Rate > 60.0 mL/min (>60); Glucose 172 mg/dL (70-100); HEMOLYSIS < 15 (0-50); Sodium 138 mmol/L (137-145)
[2018-06-13] MEDS: METFORMIN HCL 500 MG TABLET 1000 MG PO ×2 (08:09→16:57)
[2018-06-13] MEDS: VANCOMYCIN 1,500 MG in SODIUM CHLORIDE 0.9% 500 ML 333 ML IV ×2 (08:09→18:08)
[2018-06-13] MEDS: NICOTINE 7 MG PATCH TOP (08:10)
[2018-06-13] MEDS: INSULIN GLARGINE 100 UNIT/ML 3ML PEN 35 UNIT SUBCUT (08:12)
[2018-06-13] MEDS: INSULIN ASPART 100 UNIT/ML INSULN PEN SUBCUT ×3 (08:13→16:57)
[2018-06-13] MEDS: SODIUM CHLORIDE 0.9% FLUSH 10 ML IV ×2 (10:25→21:12)
[2018-06-13] MEDS: ENOXAPARIN 40 MG/0.4 ML SYRINGE SUBCUT (10:25)
--- NOTE | 2018-06-13 11:00 | PM.PN.1 ---
Exam Vital Signs (past 8 hours): - 06/13/18 05:45 06/13/18 09:30 06/13/18 10:10 Temperature 98.4 F 97.1 F L Pulse Rate 64 92 H Respiratory Rate 20 16 Blood Pressure 122/76 114/63 Pulse Oximetry 93 95 95 Oxygen Delivery Method Room Air Oxygen Flow Rate 0 Objective Labs Result Diagrams: 06/13/18 05:36 06/13/18 05:36 Labs: Laboratory Results - last 24 hr 06/13/18 06/13/18 05:36 05:36 WBC 10.8 RBC 4.70 Hgb 14.1 Hct 41.4 MCV 88.2 MCH 29.9 MCHC 34.0 RDW 14.8 Plt Count 297 Neut % (Auto) 72.3 Lymph % (Auto) 15.0 L Yancey % (Auto) 7.5 Eos % (Auto) 4.3 H Baso % (Auto) 0.9 Neut # (Auto) 7800 H Lymph # (Auto) 1600 Yancey # (Auto) 800 Eos # (Auto) 500 H Baso # (Auto) 100 Sodium 138 Potassium 4.0 Chloride 104 Carbon Dioxide 27 BUN 17 Creatinine 0.90 Estimated GFR > 60.0 BUN/Creatinine Ratio 18.9 Glucose 172 H D Calcium 8.8 Assessment & Plan Assessment & Plan narrative: Patient is admitted after surgery for foot I&D. Patient has been stable and pt's wound vac is in place and intact. Patient is neurovascularly intact on exam. Patient has no signs or symptoms of DVT. Patient's dressing is clean dry and intact. No active surgical issue. Continue medical management. Social work is working on placement with antiobiotic therapy. May discharge once it's in place. Quality VTE Deep Vein Thrombosis/Pulmonary Embolism Present on Admission: No
--- NOTE | 2018-06-13 11:59 | P.PN_ITS ---
Subjective Date Patient Seen: 06/13/18 Time Patient Seen: 11:54 Interval history: Patient is comfortable lying in bed. Has been cooperative with care. No complaints of pain or constipation. No shortness of breath. Exam Vital Signs (past 8 hours): - 06/13/18 05:45 06/13/18 09:30 06/13/18 10:10 Temperature 98.4 F 97.1 F L Pulse Rate 64 92 H Respiratory Rate 20 16 Blood Pressure 122/76 114/63 Pulse Oximetry 93 95 95 Oxygen Delivery Method Room Air Oxygen Flow Rate 0 Narrative Exam Narrative: General: Well-developed, well-nourished, male, no acute distress, lying in bed Heart: Regular rate and rhythm, no murmurs appreciated Lungs: Clear to auscultation bilaterally, no wheezes, rales or rhonchi Extremities: Left foot bandaged with a wound VAC in place. Objective Labs Result Diagrams: 06/13/18 05:36 06/13/18 05:36 Labs: Laboratory Results - last 24 hr 06/13/18 06/13/18 05:36 05:36 WBC 10.8 RBC 4.70 Hgb 14.1 Hct 41.4 MCV 88.2 MCH 29.9 MCHC 34.0 RDW 14.8 Plt Count 297 Neut % (Auto) 72.3 Lymph % (Auto) 15.0 L Borden % (Auto) 7.5 Eos % (Auto) 4.3 H Baso % (Auto) 0.9 Neut # (Auto) 7800 H Lymph # (Auto) 1600 Borden # (Auto) 800 Eos # (Auto) 500 H Baso # (Auto) 100 Sodium 138 Potassium 4.0 Chloride 104 Carbon Dioxide 27 BUN 17 Creatinine 0.90 Estimated GFR > 60.0 BUN/Creatinine Ratio 18.9 Glucose 172 H D Calcium 8.8 Assessment & Plan Assessment & Plan narrative: 58-year-old man with uncontrolled type 2 diabetes, medical noncompliance, charcot foot, chronic left lower extremity ulcer and tobacco use admitted with an open diabetic foot ulcer and evidence of osteomyelitis on MRI. Post op day 2 from irrigation, debridement, and bone biopsy. LLE diabetic foot ulcer - Wound MRSA, Klebsiella pneumoniae and group B strep. Cultures from procedure 2 days ago growing group B strep and staph, sensitivities pending. Continue cefazolin and vancomycin, will need six weeks total of IV antibiotics. Day n brigid 6 of vancomycin today. Progress note from 06/10/18 with specific instructions from Infectious Disease. - Appreciate orthopedic management. DM Type 2 - Blood sugars continue to improve - Continue metformin, lantus to twice daily dosing. - Continue high dose sliding scale coverage Moderate COPD - at baseline Tobacco use - Nicotine patch Anxiety - prn lorazepam DVT prophylaxis: Lovenox FEN: continue carb controlled diet, Code: Full code Dispo: Will need SNF on discharge for IV antibiotics. Appreciate care management's efforts on this. [facility] will evaluate tomorrow. Quality VTE Deep Vein Thrombosis/Pulmonary Embolism Present on Admission: No
--- NOTE | 2018-06-13 12:55 | PC.NURSE ---
Pt has been calm and cooperative today. Dressing from skin ulcer on foot cdi without any leaks, connected to wound vac at 125mm/suction. BS 143, and 165. Pt denies pain to his foot, ppx2. Pts elbows both red, allevyn foam dressings applied to each side so that we can avoid skin breakdown to those area's. Picc Line patent and iv antbiotics infused for the shift. Eating well at meals, voices no complaints.
--- NOTE | 2018-06-13 14:57 | CM.DPC ---
DCP Cont: Updated Dr. Gray regarding discharge planning. Let her know that referral was sent to [facility], as well as [facility], [facility]. Patient may need approximately 5 more weeks of antibiotics. Confirmed with Argenis at [facility], that she will come over and evaluate patient. This is pending her talking to her director first. Will also need to follow up with Lynn at [facility] for second option. Both are non-smoking facilities, and patient voiced to ANGIE Atkins, that he will not smoke. Has had nicotine patch while he was here. He was compliant today with dressing changes, and blood sugars more stable, according to Dr. Gray. P: DCP to continue to follow closely. Follow up with [facility] and [facility] tomorrow. Continue to update providers. Sylwia Mahmood RN/[facility].
--- NOTE | 2018-06-13 15:51 | PT.IPTN ---
Current Diagnoses Type 2 diabetes mellitus with foot ulcer (06/07/18) Type 2 diabetes mellitus without complications (06/07/18) Surgery Performed Operation Date: 06/11/18 14:15 Actual Procedures p I&D Foot diabetic ulcer/Infection, bone biopsy(Left) - Radha Mendosa MD Physical Therapy Treatment Note M3 PT-IP Subjective Start: 06/13/18 13:23 Freq: NEEDED Status: Active Protocol: Document 06/13/18 15:51 DLM (Rec: 06/13/18 15:52 DLM [id number]) Subjective Physical Therapy Visit Type Type Patient Refusal Notes his power wheelchair is in his room Physical Therapy Visit Comments Patient Comments He is too tired to get up now, he has been getting to the bathroom with nursing
[2018-06-13] MEDS: VANCOMYCIN TROUGH 1 REQUEST MISC (16:57)
--- NOTE | 2018-06-13 17:07 | CM.SWNOTE ---
This PRODUCTIVITY ENGINEER spent time w/pt yesterday and today, supportive, pt familiar to this PRODUCTIVITY ENGINEER from prior admissions. Assisting RN DC School Bus Attendant Maty in discussing DCP options w/pt and reviewed case w/ Argenis at [facility]. See Maty's notes. Pt in much better spirits today per Dr Gray. This PRODUCTIVITY ENGINEER stopped in to see pt today, he is curious if [facility] will be able to accept him. This PRODUCTIVITY ENGINEER explains DC planning team still awaiting final determination on that, discussed that pt could not smoke at [facility], he is aware and agreeable to continue use of nicotine patch and not smoke. Reviewed w/pt his motivation to remain alive and pt admits he wants to do what is needed to keep his limbs. He understands that in order to eradicate this infection, he must remain compliant w/care and w/recommendations for ongoing care. This PRODUCTIVITY ENGINEER also reviewed case w/ Dr Ramos today as he requested an update, provided the update that Maty RN DC School Bus Attendant had sent referral to SNF in [facility] and awaiting CB from [facility] Thursday. This PRODUCTIVITY ENGINEER encouraged Dr Ramos and, if needed, this can be discussed w/[facility] team, that if no SNF were able to accept, a b/u plan for antibiotics should be considered i.e. less frequent IV abx administration ( in order for pt to come into infusion clinic?) vs po abx ? Ideally SNF will be secured on behalf of this pt. Dr Ramos unusre how long wound vac will need to remain in place. ANGIE Cantu
[2018-06-13 17:08] LABS: Vancomycin Trough 15.5 ug/mL (10-20)
[2018-06-13] MEDS: INSULIN GLARGINE 100 UNIT/ML 3ML PEN 30 UNIT SUBCUT (21:20)
[2018-06-13] MEDS: NYSTATIN POWDER 30 GM 1 APPLIC TOP (21:20)
[2018-06-14] MEDS: VANCOMYCIN 1,500 MG in SODIUM CHLORIDE 0.9% 500 ML 333 ML IV (00:54)
[2018-06-14] MEDS: SODIUM CHLORIDE 0.9% FLUSH 10 ML IV ×3 (00:56→21:13)
[2018-06-14] MEDS: CEFAZOLIN 2 GM/100 ML FROZ.PIGGY IV ×3 (02:26→18:50)
--- NOTE | 2018-06-14 04:55 | PC.NURSE ---
Addendum entered by Lucy Montana R.N. 06/14/18 04:58: Original Note: Patient is refusing to allow second set of VS this shift, refusing to allow saline lock after antibiotics were done. desired bed unplugged. States get out,just let me the #$%^ sleep. Noise of the plugged in bed was annoying to patient who is very irritable.
[2018-06-14 08:07] VITALS: O2SAT 95
[2018-06-14] MEDS: METFORMIN HCL 500 MG TABLET 1000 MG PO ×2 (08:32→16:45)
[2018-06-14] MEDS: ACETAMINOPHEN 325 MG TABLET PO ×2 (08:32→21:12)
[2018-06-14] MEDS: ENOXAPARIN 40 MG/0.4 ML SYRINGE SUBCUT (08:32)
--- NOTE | 2018-06-14 08:32 | CM.DPC ---
Addendum entered by Buffy Pickard LPN 06/14/18 13:32: Met with pt earlier to update him on the snf search. He was aware that [facility] was considering his case. Argenis has now confirmed that she discussed case with the administration team and they cannot accept pt. Primary reason: they are not contracted with [facility] Spoke with Lynn/[facility]. She says that currently they have no male beds but suggests sister facility: [facility]. Both are contracted with [facility] and know they would need to discuss financials with [facility] due to acuity of the pt's needs. Referral given to Lena, she will review. Also provided her with the [facility] Transitions of Care RN Lynn Worthington's cell number. Called [facility] and gave referral to long term care administrator Ander. He will confirm that they are network (he thinks that they are) and will review. Pt is again updated and expresses his frustration that he will have to leave [place] until he is well enough to return to [facility]. P: continue to work on the snf d/c plan...will follow. PT did work successfully with pt today. OF NOTE: Lynn: [facility] did check into the cost of the IV antibiotics that pt is currently on. Using the [facility] pharmacy: cost is total of $30.00/day (includes both of the drugs). Original Note: Addendum entered by Buffy Pickard LPN 06/14/18 08:46: Spoke with [facility] ANGELINA Molina. She confirms pt has lived there for over a year. He is an active smoker and goes outside the building to do so as per their protocol. As per the backup plan considered yesterday if snf is not found in a timely manner: pt could go the the wound care clinic for wound vac followup (needs dressings to be changed every three days per the orthopedic notes) and perhaps IV antibiotics at the Infusion Center. Tracy states that they cannot accept and pt's with IVs in place/ even if managed in the OUTPT setting or an Infusion company coming to the facility. We do not have nursing staff to monitor it 24 hrs a day. Have now left a message for [facility] dialysis rn Lynn Worthington: cell [phone] with request for partnership in this case. P: snf setting: IV antibiotics for 5 weeks and wound vac when accepting facility is found and [employer] auth is in place. Original Note: DCP: continued: case received and spoke this morning with Dr. Morales/PCP. She states that pt is stable for d/c to the snf setting. He will need IV antibiotics for 5 weeks/PICC in place. He is currently on IV cefazolin and vancomycin and would continue those orders at the snf. A wound vac has been placed. Reviewed notes from DCplanners ZULLY Dao and ANGIE Atkins, working together yesterday on this case. P: will check in now with pt. Have left a vm for [facility] Argenis and [facility] Lynn to check on status of the referral and to make sure they were aware of the wound vac. Pt has [employer] and will need authorization for the snf from the insurance/snfs will follow this piece.
[2018-06-14] MEDS: INSULIN GLARGINE 100 UNIT/ML 3ML PEN 35 UNIT SUBCUT (08:33)
[2018-06-14] MEDS: NICOTINE 7 MG PATCH TOP (08:34)
[2018-06-14] MEDS: VANCOMYCIN 1,500 MG in SODIUM CHLORIDE 0.9% 500 ML 333.3 ML IV ×2 (08:36→16:44)
[2018-06-14] MEDS: NYSTATIN POWDER 30 GM 1 APPLIC TOP (08:41)
--- NOTE | 2018-06-14 10:12 | PM.PN.1 ---
Subjective Date Patient Seen: 06/14/18 Time Patient Seen: 08:00 Interval history: No complaints this morning. Eager to find out where he will be going after the hospital. Has not smoked in a week and has done well with the nicotine patch. Please his blood sugars have come down. Exam Vital Signs (past 8 hours): - 06/14/18 08:07 Pulse Oximetry 95 Oxygen Delivery Method Room Air Oxygen Flow Rate 0 Narrative Exam Narrative: General: Wakes easily on exam. Well appearing. I HEENT: NCAT, EOMI, edentulous CV: Regular rate and rhythm, no murmurs, rubs or gallops Lungs: CTAB, no wheezes, rales, or rhonchi Extremities: Wound VAC on left foot with serosanguineous drainage in tubing. No lower extremity edema. Objective Labs Result Diagrams: 06/13/18 05:36 06/13/18 05:36 Labs: Laboratory Results - last 24 hr 06/13/18 16:20 Vancomycin Trough 15.5 Assessment & Plan Assessment & Plan narrative: 58 year old man with uncontrolled type 2 diabetes admitted with diabetic foot ulcer with osteomyelitis s/p irrigation debridement and bone biopsy with Dr. Mendosa. Cultures positive for MRSA, klebsiella pneumoniae and group B strep. Now on day 7 of IV antibiotics. Diabetic foot ulcer: Ortho recs - Change wound vac every 3 days, appreciate continued orthopedic management - Touchdown weight-bearing but should try to be off the foot or nonweightbearing as much as possible - May use Cam Walker or offloading shoe for immobilization and protection - Follow up in ortho clinic approximately 2 weeks to assess progress and wound healing ID recs - Vancomycin and cefazolin via picc line x6 weeks - Vanco trough Thursday/, goal 15-20 - BUN/Cr Thursday/ - CBC, CRP, ESR weekly - Follow up in Infectious Disease Clinic after discharge Diabetes: - Improving glycemic control, continue Lantus 35 units QAM and 30 units QHS - Diabetic diet Tobacco use - Nicotine patch Anxiety - As needed lorazepam Dispo: Appreciate care management coordinating a safe discharge plan for continues IV antibiotics and wound vac care. Quality VTE Deep Vein Thrombosis/Pulmonary Embolism Present on Admission: No
[2018-06-14 12:00] VITALS: BP 112/78; PULSE 73; RESP 20; TEMP 36.6; O2SAT 97
--- NOTE | 2018-06-14 12:02 | PT.IIE ---
Current Diagnoses Type 2 diabetes mellitus with foot ulcer (06/07/18) Type 2 diabetes mellitus without complications (06/07/18) Surgery Performed Operation Date: 06/11/18 14:15 Actual Procedures p I&D Foot diabetic ulcer/Infection, bone biopsy(Left) - Radha Mendosa MD Surgical History (Last Reviewed 06/10/18 @ 17:24 by Radha Mendosa MD) History of carpal tunnel release (Resolved) History of hand surgery (Resolved) History of umbilical hernia repair (Resolved) Status post left foot surgery (Resolved) Status post left foot surgery (Resolved) Medical History (Last Reviewed 06/10/18 @ 17:24 by Radha Mendosa MD) Diabetes mellitus (Chronic) Chronic diabetic ulcer of foot determined by examination (Chronic) Presence of surgical screw in left hand (Chronic) CTS (carpal tunnel syndrome) (Resolved) Physical Therapy Inpatient Evaluation/Re-Eval M1 PT/OT-IP Prior Functional Status Start: 06/13/18 13:23 Freq: NEEDED Status: Active Protocol: Document 06/14/18 10:45 (Rec: 06/14/18 12:02 [email or web address]) Medical Review Prior Functional Status Medical History Reviewed Yes Diet/Fluid Consistency Regular Communication WNL Mobility and Gait uses manual or electric wheelchair, has cane for when he ambulates short distances/ support for transfers, has not been allowed to fully weight bear on his left foot for some time due to on-going wound issues, baseline he is independent with transfers and management of his wheelchair. Pt also tried amb with crutches before but did not like it. He frequently goes out in the community, know to sit out on street corners holding signs or blowing bubbles. Prior Functional Level (Other details) attended out-pt Physical Therapy in Jan, 2018 Social History Household Members none Living Arrangements Assisted Living Number of Floors (Floors) One Floor Number of Stairs To Enter/Railing? 0 Home Equipment Straight Cane Manual Wheelchair Power Wheelchair/Scooter Employment Status Unemployed Additional Social History Comment Per JANIYA, pt lives at [facility], wheelchair accessible. pt has lived there for over a year, but previously homeless. He is an active smoker and goes outside the building to do so as per their protocol. Plan to DC SNF setting: IV antibiotics for 5 weeks and wound vac when accepting facility is found and [facility] ayala is in place M2 PT-IP Current Condition Start: 06/13/18 13:23 Freq: NEEDED Status: Active Protocol: Document 06/14/18 10:45 HH (Rec: 06/14/18 12:02 [email or web address]) Physical Therapy Current Condition Current Condition Evaluation Date 06/14/18 Treatment Diagnosis Debridement of L diabetic ulceration, osteomyelitis, impaired gait Onset Date 06/11/18 Precautions Other Precautions The patient will be nonweightbearing on the left lower extremity as much as possible. The patient may use a walking boot to offloading shoe for this or another offloading device such as a wheelchair crutches walker or knee scooter. The patient may put the heel or foot down for balance but is encouraged to offload as much as possible while attempting wound healing . Weight Bearing Status Weight Bearing Status Non-Weight Bearing Allowed Weight Bearing Amount (enter % on LLE or #) (%) M3 PT-IP Subjective Start: 06/13/18 13:23 Freq: NEEDED Status: Active Protocol: Document 06/14/18 10:45 HH (Rec: 06/14/18 12:02 [email or web address]) Subjective Physical Therapy Visit Type Type Initial Evaluation Visit Start Time 10:45 Visit Stop Time 11:15 Total Visit Minutes 30 Notes Per RN, pt has been OOB to transfer to his power W/C but he is often irritated easily and not much of patience. He often WB on his surgical LLE to transfer. RN assisted to detach wound vac and PICC for mobility. Number of STATE HISTORICAL SOCIETY DIRECTOR Visits 0 Physical Therapy Visit Comments Patient Comments pt agreeable to mobilize with PT. Do not want to use crutches. Patient Goals To be d/c to DC SNF for medical care for his L foot. Therapy Pain Assessment Pain Present Pain Present Denied Pain M4 PT-IP Mobility and Gait Start: 06/13/18 13:23 Freq: NEEDED Status: Active Protocol: Document 06/14/18 10:45 HH (Rec: 06/14/18 12:02 [email or web address]) PT-Bed Mobility Assessment Rolling Type of Rolling Roll to Right Level of Assist Independent Supine to Sit Supine to Sit Independent Head of Bed Elevated Bedrails Sit to Supine Sit to Supine Independent Head of Bed Elevated Bedrails Scooting Scooting to Edge of Bed Independent PT-Transfer Assessment Sit to and From Stand Sit to and from Stand Independent Use of Upper Extremities Equipment Transfer Assistive Device Gait Belt Straight Cane Orthotic/Prosthetic Devices or Brace: No Transfers Transfer Destination Bed Wheelchair Transfer Technique Stand Pivot Transfer Ability Level of Assist Contact Guard Assistance Use of Upper Extremities Comments Mobility Comments Pt was very impulsive in terms of mobility. Pt understands his NWB status but tends to ignore it and cont transfer to w/c with his SPC and partially WB on his L foot. Required max cues to remind him but pt got frustrated easily this condition has been ongoing for years and i; ve been using w/c for 5/6 years. Gait Assessment Gait Gait Assistance Required: Contact Guard Assist Distance (Feet) 20 Able to Maintain Weight Bearing Status No During Gait Assistive Devices Assistive Device Gait Belt Axillary Crutches Orthotic/Prosthetic Devices or Brace: No Gait Deviations General Gait Pattern Antalgic Decreased Stride Length Decreased Feet Clearance Flexed Trunk Step-to Gait Factors Limiting Gait Function Factors Limiting Gait Function Decreased Activity Tolerance Decreased Sensation Decreased Strength Difficulty Following Directions Limited Range of Motion Pain Poor Balance Poor Safety Awareness Comments Gait Comments Introduced pt to use crutches but pt got very irritated. He stated this is so much harder than using a w/c. I havent been walking for 5/6 years and what's the point. Pt attempt B crutches but he cont to partially WB on L foot. Pt was able to hop few times but he got frustrated and ignored NWB protocol after. However, pt apologized after for his poor patience and willing to attempt to learn to use crutches for this PM session since he wants to walk normally. Stair Climbing Assessment Comments Stair Climbing Comments did not attempt PT-Balance Assessment Sitting Balance and Reactions Static Sitting Balance Ability Normal Dynamic Sitting Balance Ability Normal Standing Balance and Reactions Static Standing Balance Ability Good Dynamic Standing Balance Ability Good Device Used SPC/ crutches M5 PT-IP Objective Assessments Start: 06/13/18 13:23 Freq: NEEDED Status: Active Protocol: Document 06/14/18 10:45 (Rec: 06/14/18 12:02 [email or web address]) Orientation Orientation/Cognition Level of Alertness Alert Orientation Name Age Birthday Month Date Year Day of Week Place Situation Language Function Ability No Deficits Noted Safety Awareness Decreased Safety Awareness Memory Description No Deficits Noted Gross Range of Motion Upper Extremity ROM Assessment Within Functional Limits Lower Extremity ROM Assessment Left Impaired Impairments L ankle with gauze L charcot foot Strength Upper Extremity Strength Assessment Within Functional Limits Lower Extremity Strength Assessment Left Impaired Comments Strength Comments NWB on L foot Coordination Assessment Gross Coordination Gross Coordination WNL Sensation Assessment Sensation Gross Sensation WNL Light Touch Intact Proprioception (Position) Intact Muscle Tone Muscle Tone WNL Yes M6 PT-IP Treatment Start: 06/13/18 13:23 Freq: NEEDED Status: Active Protocol: Document 06/14/18 10:45 HH (Rec: 06/14/18 12:02 HH [email or web address]) Physical Therapy Treatment Education Education Provided Safety M7 PT-IP Assessment and Plan Start: 06/13/18 13:23 Freq: NEEDED Status: Active Protocol: Document 06/14/18 10:45 HH (Rec: 06/14/18 12:02 HH [email or web address]) PT Summary Assessment and Plan Potential Rehabilitation Potential Good Status of Condition at Evaluation Stable Summary Impairments ROM Strength Balance Bed Mobility Transfers Gait Activity Tolerance Assessment Summary Pt is POD#4 debridement of diabetic ulceration on L foot, currently following NWB on the left lower extremity as much as possible. The patient may use a walking boot to offloading shoe for this or another offloading device such as a wheelchair crutches walker or knee scooter. The patient may put the heel or foot down for balance but is encouraged to offload as much as possible while attempting wound healing. Upon assessment , pt is very non patient and gets irritated very easily. Pt required max cues to remind his NWB status but he often ignored it and cont partially WB during w/c transfer. Pt did attempt to use crutches for amb and he was able to hop with RLE but occasionally WB on LLE. Pt did calm down afterwards and apologized of his inpatience and wanted to relearn his walking pattern with crutches again. Pt will only amb with PT at this point and cont to mobilize with nursing staff only for transfers/BSC. He will need SNF to improve mobility and address his medical needs for IV antibiotic and wound management. Goals Bed Mobility Goal Independent Transfer Goal Standby Assistance Crutches Front Wheeled Walker Gait Goal Standby Assistance Crutches Front Wheel Walker Gait Distance 50 Other Goals transfer / amb with LRAD Days to Meet Goals 5 Frequency of Treatment Frequency Of Treatment Twice a Day Treatment Plan Physical Therapy Treatment Plan Bed Mobility Training Transfer Training Gait Training Therapeutic Exercise Other Recommendations and Next Treatment transfer / amb with LRAD in Focus the hallway follow by chair. Recommendations To Nursing Amount of Assist Needed 1 Person Assist PT/OT Assist Only Discharge Recommendations PT Discharge Recommendations SNF Rehab Other Discharge Recommendations Pt will only amb with PT at this point and cont to mobilize with nursing staff only for transfers/BSC. He will need SNF to improve mobility and address his medical needs for IV antibiotic and wound management Equipment Needed for Home Before axillary crutches Discharge
--- NOTE | 2018-06-14 13:29 | PT.IPTN ---
Current Diagnoses Type 2 diabetes mellitus with foot ulcer (06/07/18) Type 2 diabetes mellitus without complications (06/07/18) Surgery Performed Operation Date: 06/11/18 14:15 Actual Procedures p I&D Foot diabetic ulcer/Infection, bone biopsy(Left) - Radha Mendosa MD Physical Therapy Treatment Note M2 PT-IP Current Condition Start: 06/13/18 13:23 Freq: NEEDED Status: Active Protocol: Document 06/14/18 10:45 (Rec: 06/14/18 12:02 [email or web address]) Physical Therapy Current Condition Current Condition Evaluation Date 06/14/18 Treatment Diagnosis Debridement of L diabetic ulceration, osteomyelitis, impaired gait Onset Date 06/11/18 Precautions Other Precautions The patient will be nonweightbearing on the left lower extremity as much as possible. The patient may use a walking boot to offloading shoe for this or another offloading device such as a wheelchair crutches walker or knee scooter. The patient may put the heel or foot down for balance but is encouraged to offload as much as possible while attempting wound healing . Weight Bearing Status Weight Bearing Status Non-Weight Bearing Allowed Weight Bearing Amount (enter % on LLE or #) (%) M3 PT-IP Subjective Start: 06/13/18 13:23 Freq: NEEDED Status: Active Protocol: Document 06/14/18 13:20 (Rec: 06/14/18 13:29 [id number]) Subjective Physical Therapy Visit Type Type Patient Refusal Visit Start Time 13:20 Notes Pt was in sleep and attempted to wake him up for PT. Pt refused PT and became irritated. He stated Im not doing any therapy and i changed my mind that i dont want to walk again. I just want to stay with my wheelchair and get the hell of here. I dont need your help. Possible d/c from therapy if pt cont to be uncooperative.
[2018-06-14 15:00] VITALS: O2SAT 96
[2018-06-14 16:46] VITALS: BP 140/98; PULSE 89; RESP 18; TEMP 36.8; O2SAT 96
[2018-06-14] MEDS: INSULIN ASPART 100 UNIT/ML INSULN PEN SUBCUT (16:46)
--- NOTE | 2018-06-14 18:26 | P.PN_ITS ---
Subjective Date Patient Seen: 06/14/18 Time Patient Seen: 18:18 Interval history: 58-year-old male with uncontrolled diabetes hemoglobin A1c 12 with left foot ulceration osteomyelitis and Charcot arthropathy. Postop day 3 status post irrigation debridement bone biopsy and wound VAC placement left foot. the patient is on scheduled IV antibiotics and has Infectious Disease consult. Patient is sitting in bed very pleasant and appreciative care today. Denies pain denies fevers and chills. Is excited to get out of the hospital soon hopefully. Exam Vital Signs (past 8 hours): - 06/14/18 12:00 06/14/18 15:00 06/14/18 16:46 Temperature 97.8 F 98.3 F Pulse Rate 73 89 Respiratory Rate 20 18 Blood Pressure 112/78 140/98 H Pulse Oximetry 97 96 96 Oxygen Delivery Method Room Air Oxygen Flow Rate 0 Narrative Exam Narrative: Alert oriented no acute distress. Normocephalic atraumatic. nonlabored breathing on room air Musculoskeletal examination: Left lower extremity in dressing with wound VAC in place to good suction. Dressing is taken down wound VAC removed. Medial column wound are divided into wounds the medial column ulceration which is 6 cm x 4 cm by approximately 0.5 cm deep. there is a area of approximately 2 cm of tunneling at the distal aspect of the ulceration. No drainage today reduced erythema good bleeding tissue. no further evidence of necrosis. Second ulceration is at the plantar 1st metatarsal head this is a round 1.5 cm x 1.5 cm x 1 cm deep ulceration. No drainage no erythema. Skin is dry. capillary refill is brisk. Patient tolerated wound VAC change very well denied pain. dense neuropathy Objective Labs Result Diagrams: 06/13/18 05:36 06/13/18 05:36 Assessment & Plan Post-op Postoperative Procedures Operation Date: 06/11/18 14:15 Actual Procedures Side Surgeon p I&D Foot diabetic ulcer/Infection, bone biopsy Left Radha Mendosa MD Postoperative day: 3 Postoperative status: doing well Postoperative status narrative: Assessment & Plan narrative: 58 year old man with uncontrolled type 2 diabetes admitted with diabetic foot ulcer with osteomyelitis s/p irrigation debridement and bone biopsy 06/10/18. Cultures positive for MRSA, klebsiella pneumoniae and group B strep. Now on day 7 of IV antibiotics per ID recs Diabetic foot ulcer: Ortho recs - Change wound vac every 3 days, next wound VAC change would be due . -will need wound VAC orders for snf. Anticipate 2-3 months of need. Medium wou nd VAC sponge sufficient. Wound sizes are wound 1 medial (6 cm x 4 cm x 0.5 cm deep- with approximately 2 cm of tunneling) wound 2. Plantar 1st metatarsal: 1.5 cm x 1.5 cm x 1 cm deep. - Touchdown weight-bearing but should try to be off the foot or nonweightbearing as much as possible - May use Cam Walker or offloading shoe for immobilization and protection - Follow up in ortho clinic approximately 2 weeks to assess progress and wound healing --no further surgery during this hospitalization anticipated. Postoperative plan: routine post-op care Postoperative plan narrative: Wound VAC changes Q 72 hours--See measurements in this note for snf wound VAC orders. Time Spent With Patient 15-24 minutes Quality VTE Deep Vein Thrombosis/Pulmonary Embolism Present on Admission: No
[2018-06-14 20:30] VITALS: BP 140/80; PULSE 92; RESP 20; TEMP 37
[2018-06-14] MEDS: INSULIN GLARGINE 100 UNIT/ML 3ML PEN 30 UNIT SUBCUT (21:13)
[2018-06-15] MEDS: VANCOMYCIN 1,500 MG in SODIUM CHLORIDE 0.9% 500 ML 333.3 ML IV (00:09)
[2018-06-15 00:10] VITALS: BP 153/77; PULSE 83; RESP 18; TEMP 36.1; O2SAT 94
--- NOTE | 2018-06-15 01:07 | PC.NURSE ---
2300- POD#3 L&D of L foot w/ wound vac in place set to continuous as ordered. Wound vac sealed properly, verbally told foam was changed today. AC/HS BG checks taking place w/ Lantus replacement. Single lumen PICC in upper R arm flushes well w/ blood return. Pt using urinal in bed, aware of L foot precautions while walking. 0020- IV abx hung as ordered; pt in pleasant mood allowing this RN to check his vital signs. Denies any needs. 0200- Pt extremely agitated when aide took BG level and woke him up. Refusing IV abx at this time; trying to pull out PICC line. Will cont to monitor. 0240- Pt continues to scream at staff and throw things in his room; this RN will not be hanging Cefazolin abx timed for this time. Pt has refused 3x now.
[2018-06-15 08:00] VITALS: BP 134/78; PULSE 78; RESP 20; TEMP 36.6; O2SAT 95; O2SAT 98
--- NOTE | 2018-06-15 08:02 | CM.DPC ---
Addendum entered by Buffy Pickard LPN 06/15/18 13:59: Xavier Lara did speak with Dr. Weems. He states all needed info re the wound vac is in the OP report. Dr. Morales's progress note for today is now available. She has a good summary of the snf level treatment needs for vac and antibiotics. Spoke today with [facility] RN Lynn Worthington. She said she has reviewed the information, notes need for the IV antibiotics and wound vac and with pt to return to his [facility] setting at [facility] when he has completed the snf level care. Pt very much wishes to do this and [facility] expects him to return. Lynn clarifies that she is very happy to assist in the snf process but she cannot get involved until the reviewing snf has sent in a request for snf auth consideration to [facility]. Lynn's cell: [phone]. Have spoken now with [facility]. He confirms they are network with [facility]. His drug safety coordinator Etta is out sick today but he says she may have started the process. He will check in with her and says she may be able to work on this tomorrow from home is she is still unwell. He does say that currently there in no one else in the facility able to do this work and apologizes for same. Talked over the auth process with him and am sending updated physician progress notes and the last 2 days of CM/DCP notes now to help them in this process. [facility] and left a message re need for update on the referral. Also asked for clarity re whether or not Sona is now part of this process and early discussion indicated she might be following to assist and assess. Am faxing this snf the same info pack as faxed to [facility]. DCP team will continue to follow. Pt is eager to find out where he will go for his snf treatment...please keep him updated. Original Note: Addendum entered by Buffy Pickard LPN 06/15/18 08:48: Wound vac: spoke now with kelvin Lara re need for some specifics on the vac so that the accepting snf will know what they need to have available when pt admits to them. He is seeing pt now. Agrees to research this today and if need be he will talk with Dr. Weems re the vac specifics. (size, type of foam, etc). [facility] will continue to follow. Please see the more extensive notes of yesterday re the d/c issues and options. Original Note: Addendum entered by Buffy Pickard LPN 06/15/18 08:07: Just spoke with Dr. Morales who said she had reviewed the DCP notes of yesterday. Discussed case. Pt will be here until accepting snf can be found. Would anticipate this will be sometime this week. [facility] and [facility] are reviewing. [facility] but [facility] no male [facility]). Original Note: DCP: continued: Left another message this morning with [facility] RN requesting assist in finding an accepting snf that includes financial considerations due to acuity of pt's needs.
[2018-06-15] MEDS: NICOTINE 7 MG PATCH TOP (08:12)
[2018-06-15] MEDS: INSULIN GLARGINE 100 UNIT/ML 3ML PEN 35 UNIT SUBCUT (08:12)
[2018-06-15] MEDS: METFORMIN HCL 500 MG TABLET 1000 MG PO ×2 (08:12→17:03)
[2018-06-15] MEDS: ENOXAPARIN 40 MG/0.4 ML SYRINGE SUBCUT (08:12)
--- NOTE | 2018-06-15 08:25 | PM.PN.1 ---
Subjective Date Patient Seen: 06/15/18 Time Patient Seen: 07:30 Interval history: No complaints this morning. Apparently overnight patient refused a dose of antibiotics but he denies this. Eager to find out where he will be discharged. Exam Vital Signs (past 8 hours): Oxygen Delivery Method Room Air Oxygen Flow Rate 0 Narrative Exam Narrative: General: Disheveled man appearing older than stated age HEENT: NCAT, EOMI, edentulous CV: Regular rate and rhythm, no murmurs, rubs or gallops Lungs: CTAB, no wheezes, rales, or rhonchi Extremities: Wound VAC in place. No lower extremity edema. Objective Labs Result Diagrams: 06/15/18 08:30 06/15/18 08:30 Assessment & Plan Assessment & Plan narrative: 58 year old man with uncontrolled type 2 diabetes admitted with diabetic foot ulcer with osteomyelitis s/p irrigation debridement and bone biopsy with Dr. Mendosa. Cultures positive for MRSA, klebsiella pneumoniae and group B strep. Now on day 8 of IV antibiotics. Diabetic foot ulcer: - Appreciate orthopedic management - Needs wound VAC changed every 3 days, specific instructions in Dr. Mendosa's note from 06/14/18 - Follow up with Dr. Weems in 2 weeks - Vancomycin and cefazolin via picc line x6 weeks (needs 5 more weeks) - Vanco trough Thursday/, goal 15-20 - BUN/Cr Thursday/ - CBC, CRP, ESR weekly - Follow up in Infectious Disease Clinic after discharge Diabetes: - Improving glycemic control, continue Lantus 35 units QAM and 32 units QHS - Diabetic diet Tobacco use - Nicotine patch Anxiety - As needed lorazepam Dispo: Appreciate care management coordinating a safe discharge plan for continues IV antibiotics and wound vac care. Quality VTE Deep Vein Thrombosis/Pulmonary Embolism Present on Admission: No
[2018-06-15] MEDS: VANCOMYCIN TROUGH 1 REQUEST MISC (08:30)
[2018-06-15 09:15] LABS: Add Manual Diff / Slide Review NO; Basophils Absolute Auto 100 /uL (0-100); Basophils Percent Auto 1.1 % (0-2); Eosinophils Absolute Auto 400 /uL (0-450); Eosinophils Percent Auto 4.5 % (2-4); Hematocrit 42.2 % (41-53); Lymphocytes Absolute Auto 1900 /uL (1100-4500); Lymphocytes Percent Auto 22.9 % (25-40); Mean Corpuscular HGB Conc 33.2 % (30-36); Mean Corpuscular Hemoglobin 29.5 PG (26-34); Mean Corpuscular Volume 88.6 fL (80-100); Monocytes Absolute Auto 500 /uL (0-900); Monocytes Percent Auto 6.3 % (3-14); Neutrophils Absolute Auto 5300 /uL (1500-7000); Neutrophils Percent Auto 65.2 % (50-75); Platelet Count 337 X10^3/uL (150-400); Red Blood Cell Count 4.76 X10^6/uL (4.5-5.9); Red Cell Distribution Width 14.8 % (11.6-14.8); White Blood Cell Count 8.2 X10^3/uL (4.5-11.0)
[2018-06-15] MEDS: CEFAZOLIN 2 GM/100 ML FROZ.PIGGY IV ×2 (09:16→17:07)
--- NOTE | 2018-06-15 09:18 | P.PN_ITS ---
Subjective Date Patient Seen: 06/15/18 Time Patient Seen: 09:15 Interval history: Hospital day 8, postop day 1 following left foot diabetic ulcer I and D with partial medial cuneiform exostectomy and bone biopsy by Dr. Mendosa. Patient has been stable postoperatively. Is not doing any weight- bearing to the left foot. does have wound VAC in place from surgery. he is awaiting discharge to SNF for further IV antibiotic therapy. Exam Vital Signs (past 8 hours): - 06/15/18 08:00 Temperature 98 F Pulse Rate 78 Respiratory Rate 20 Blood Pressure 134/78 Pulse Oximetry 98 Oxygen Delivery Method Room Air Oxygen Flow Rate 0 Narrative Exam Narrative: Left foot. dressing appears dry. Wound VAC in place with good vacuum. Good color to toes. He does not have any sensation to his foot. Objective Labs Result Diagrams: 06/13/18 05:36 06/13/18 05:36 Assessment & Plan Post-op Postoperative Procedures Operation Date: 06/11/18 14:15 Actual Procedures Side Surgeon p I&D Foot diabetic ulcer/Infection, bone biopsy Left Radha Mendosa MD Plan: Patient to be discharged to SNF pending acceptance by facility and clearance by PCP. He will be on vancomycin and Ancef IV x6 weeks. He made to partial weight-bearing to the left foot in boot with weight on his heel. Wound VAC will remain in place and changed every 3 days. He will need postop appointment with Dr. Mendosa at 2 weeks postop. Quality VTE Deep Vein Thrombosis/Pulmonary Embolism Present on Admission: No
[2018-06-15 09:42] LABS: Erythrocyte Sedimentation Rate 65 MM/HR (0-15)
[2018-06-15 10:12] LABS: Blood Urea Nitrogen 14 mg/dL (9-20); C-Reactive Protein Quant 1.1 mg/dL (<1.0); Calcium 9.4 mg/dL (8.4-10.2); Carbon Dioxide 29 mmol/L (22-32); Chloride 102 mmol/L (98-107); Estimated Glomerular Filt Rate > 60.0 mL/min (>60); Glucose 115 mg/dL (70-100); HEMOLYSIS < 15 (0-50); Potassium 4.5 mmol/L (3.4-5.1); Sodium 140 mmol/L (137-145)
[2018-06-15 10:14] LABS: Vancomycin Trough 19.1 ug/mL (10-20)
--- NOTE | 2018-06-15 10:25 | PT.IPTN ---
Current Diagnoses Type 2 diabetes mellitus with foot ulcer (06/07/18) Type 2 diabetes mellitus without complications (06/07/18) Surgery Performed Operation Date: 06/11/18 14:15 Actual Procedures p I&D Foot diabetic ulcer/Infection, bone biopsy(Left) - Radha Mendosa MD Physical Therapy Treatment Note M2 PT-IP Current Condition Start: 06/13/18 13:23 Freq: NEEDED Status: Active Protocol: Document 06/14/18 10:45 (Rec: 06/14/18 12:02 [id number]) Physical Therapy Current Condition Current Condition Evaluation Date 06/14/18 Treatment Diagnosis Debridement of L diabetic ulceration, osteomyelitis, impaired gait Onset Date 06/11/18 Precautions Other Precautions The patient will be nonweightbearing on the left lower extremity as much as possible. The patient may use a walking boot to offloading shoe for this or another offloading device such as a wheelchair crutches walker or knee scooter. The patient may put the heel or foot down for balance but is encouraged to offload as much as possible while attempting wound healing . Weight Bearing Status Weight Bearing Status Non-Weight Bearing Allowed Weight Bearing Amount (enter % on LLE or #) (%) M3 PT-IP Subjective Start: 06/13/18 13:23 Freq: NEEDED Status: Active Protocol: Document 06/15/18 10:14 AMB (Rec: 06/15/18 10:25 AMB [email or web address]) Subjective Physical Therapy Visit Type Type Treatment Note Visit Start Time 10:00 Visit Stop Time 10:15 Total Visit Minutes 15 Number of GRAY TENDER Visits 0 Physical Therapy Visit Comments Patient Comments Pt agreeable to get up to chair. M4 PT-IP Mobility and Gait Start: 06/13/18 13:23 Freq: NEEDED Status: Active Protocol: Document 06/15/18 10:14 AMB (Rec: 06/15/18 10:25 AMB [email or web address]) PT-Bed Mobility Assessment Rolling Type of Rolling Roll to Right Level of Assist Independent Supine to Sit Supine to Sit Independent Head of Bed Elevated Bedrails Sit to Supine Sit to Supine Independent Head of Bed Elevated Bedrails PT-Transfer Assessment Sit to and From Stand Sit to and from Stand Independent Use of Upper Extremities Equipment Transfer Assistive Device Straight Cane Transfers Transfer Destination Bed Chair Transfer Technique Stand Pivot Transfer Ability Level of Assist Standby Assistance Use of Upper Extremities Comments Mobility Comments Pt required max cues regarding weightbearing status, and continues to tend to weightbear through heel, but does try to avoid putting pressure on forefoot. Encouraged to continue to avoid putting pressure through L foot wiht transfers. Left sitting in chair with call light, and instructed to use call light to let nursing know when he would like to get back to bed. Gait Assessment Comments Gait Comments Pt was not wearing a gown in bed, and was not willing to wear one due to them not fitting right. Therefore gait training was not tried today. Pt did use a sheet to cover himself during all bed mobility and stand pivot transfer to chair. M5 PT-IP Objective Assessments Start: 06/13/18 13:23 Freq: NEEDED Status: Active Protocol: Document 06/14/18 10:45 HH (Rec: 06/14/18 12:02 [email or web address]) Orientation Orientation/Cognition Level of Alertness Alert Orientation Name Age Birthday Month Date Year Day of Week Place Situation Language Function Ability No Deficits Noted Safety Awareness Decreased Safety Awareness Memory Description No Deficits Noted Gross Range of Motion Upper Extremity ROM Assessment Within Functional Limits Lower Extremity ROM Assessment Left Impaired Impairments L ankle with gauze L charcot foot Strength Upper Extremity Strength Assessment Within Functional Limits Lower Extremity Strength Assessment Left Impaired Comments Strength Comments NWB on L foot Coordination Assessment Gross Coordination Gross Coordination WNL Sensation Assessment Sensation Gross Sensation WNL Light Touch Intact Proprioception (Position) Intact Muscle Tone Muscle Tone WNL Yes M6 PT-IP Treatment Start: 06/13/18 13:23 Freq: NEEDED Status: Active Protocol: Document 06/14/18 10:45 HH (Rec: 06/14/18 12:02 [email or web address]) Physical Therapy Treatment Education Education Provided Safety M7 PT-IP Assessment and Plan Start: 06/13/18 13:23 Freq: NEEDED Status: Active Protocol: Document 06/15/18 10:14 AMB (Rec: 06/15/18 10:25 AMB [email or web address]) PT Summary Assessment and Plan Summary Assessment Summary Did not attempt gait training today due to pt not being willing to wear a gown. Pt very polite otherwise with transfer, but does tend to weightbear through the heel despite encouragement to offload left foot as much as possible. Pt will need SNF rehab due to IV antibiotics. Frequency of Treatment Frequency Of Treatment Once a Day Treatment Plan Physical Therapy Treatment Plan Bed Mobility Training Transfer Training Gait Training Therapeutic Exercise Other Recommendations and Next Treatment transfer / amb with LRAD in Focus the hallway follow by chair. Discharge Recommendations PT Discharge Recommendations SNF Rehab Other Discharge Recommendations Pt will only amb with PT at this point and cont to mobilize with nursing staff only for transfers/BSC. He will need SNF to improve mobility and address his medical needs for IV antibiotic and wound management Equipment Needed for Home Before axillary crutches Discharge
[2018-06-15] MEDS: SODIUM CHLORIDE 0.9% FLUSH 10 ML IV ×2 (10:36→21:31)
[2018-06-15] MEDS: VANCOMYCIN 1,500 MG in SODIUM CHLORIDE 0.9% 500 ML 333 ML IV (10:36)
[2018-06-15 12:00] VITALS: BP 138/84; PULSE 76; RESP 18; TEMP 36.8; O2SAT 96
[2018-06-15 15:00] VITALS: O2SAT 94
[2018-06-15 15:25] VITALS: BP 118/67; PULSE 83; RESP 18; TEMP 36.4; O2SAT 94
[2018-06-15] MEDS: INSULIN ASPART 100 UNIT/ML INSULN PEN SUBCUT ×2 (17:04→21:30)
[2018-06-15] MEDS: VANCOMYCIN 1,500 MG in SODIUM CHLORIDE 0.9% 500 ML 333.333 ML IV (19:10)
[2018-06-15 19:40] VITALS: BP 109/75; PULSE 75; RESP 120; TEMP 37; O2SAT 96
[2018-06-15] MEDS: INSULIN GLARGINE 100 UNIT/ML 3ML PEN 32 UNIT SUBCUT (21:31)
[2018-06-15] MEDS: LORazepam 0.5 MG TABLET PO (23:48)
[2018-06-16] VITALS (7 sets, daily range): BP systolic 110–151; BP diastolic 69–87; PULSE 69–86; RESP 16–19; TEMP 36.1–36.7; O2SAT 93–99
--- NOTE | 2018-06-16 00:54 | PC.NURSE ---
2300- Pt awake at this time, so all care completed as he does not want to be woken up through the night. VSS; on RA; wound vac in place w/ no leaks noted. R upper arm PICC patent and saline locked. PO ativan given to help ease pt's anxiety through the night. 0200- Attempted to hang Cefazolin as ordered; IV pump states distal occlusion. Tried waking pt up and he starting yelling at this RN, told me to leave the room. IV shut off at this time, will reattempt in a little while. 0240- Pt allowed this RN to flush PICC line, met little resistance but then flushed well. IV Abx running at this time. 0500- All IV abx completed. Attempted to disconnect IV and patient got agitated asking this RN to leave the room. Will check back to flush PICC and disconnect.
[2018-06-16] MEDS: CEFAZOLIN 2 GM/100 ML FROZ.PIGGY IV ×3 (03:00→18:38)
[2018-06-16] MEDS: VANCOMYCIN 1,500 MG in SODIUM CHLORIDE 0.9% 500 ML 333 ML IV ×3 (03:29→18:39)
[2018-06-16] MEDS: ENOXAPARIN 40 MG/0.4 ML SYRINGE SUBCUT (07:58)
[2018-06-16] MEDS: ACETAMINOPHEN 325 MG TABLET PO ×2 (07:58→16:33)
[2018-06-16] MEDS: NICOTINE 7 MG PATCH TOP (07:59)
[2018-06-16] MEDS: METFORMIN HCL 500 MG TABLET 1000 MG PO ×2 (07:59→16:39)
[2018-06-16] MEDS: INSULIN GLARGINE 100 UNIT/ML 3ML PEN 35 UNIT SUBCUT (08:00)
--- NOTE | 2018-06-16 08:41 | P.PN_ITS ---
Subjective Date Patient Seen: 06/16/18 Time Patient Seen: 08:37 Interval history: Osteomyelitis Patient seen today by me as I am covering for Dr. Morales in her absence Status quo. Patient basically voices no complaints. Concerned about discharge planning. Has no pain. Satisfied with diabetic management. Is aware of the game plan which is 4-5 more weeks of intravenous antibiotics at an extended care facility. Appetite is excellent. Exam Vital Signs (past 8 hours): - 06/16/18 07:50 Temperature 97.9 F Pulse Rate 84 Respiratory Rate 18 Blood Pressure 110/74 Pulse Oximetry 94 Oxygen Delivery Method Room Air Oxygen Flow Rate 0 Narrative Exam Narrative: Patient is sitting up beside his bed having finished breakfast completely. He is in no distress. Conversant asking appropriate questions. Objective Labs Result Diagrams: 06/15/18 08:30 06/15/18 08:30 Labs: Laboratory Results - last 24 hr 06/15/18 06/15/18 06/15/18 08:30 08:30 08:30 WBC 8.2 RBC 4.76 Hgb 14.0 Hct 42.2 MCV 88.6 MCH 29.5 MCHC 33.2 RDW 14.8 Plt Count 337 Neut % (Auto) 65.2 Lymph % (Auto) 22.9 L Frederick % (Auto) 6.3 Eos % (Auto) 4.5 H Baso % (Auto) 1.1 Neut # (Auto) 5300 Lymph # (Auto) 1900 Frederick # (Auto) 500 Eos # (Auto) 400 Baso # (Auto) 100 ESR 65 H Sodium 140 Potassium 4.5 Chloride 102 Carbon Dioxide 29 BUN 14 Creatinine 0.70 Estimated GFR > 60.0 BUN/Creatinine Ratio 20.0 Glucose 115 H Calcium 9.4 C-Reactive Protein 1.1 H Vancomycin Trough 19.1 labs from yesterday is reviewed Assessment & Plan Assessment & Plan narrative: Patient with osteomyelitis presumably caused by different bacteria being appropriately treated with intravenous antibiotics. Presumed game plan is another 4-5 weeks of intravenous antibiotics additionally routine dressing changes as per Orthopedics. Discussion made with senior case manager who said [facility] was being here today to evaluate and if they will accept patient he is ready for discharge and transfer there tomorrow after the wound VAC exchange by the orthopedic service. The patient will be seen tomorrow by Dr. Gray who will be covering for Dr. Carmen's service. Quality VTE Deep Vein Thrombosis/Pulmonary Embolism Present on Admission: No
[2018-06-16] MEDS: SODIUM CHLORIDE 0.9% FLUSH 10 ML IV ×3 (09:39→18:39)
--- NOTE | 2018-06-16 10:08 | PM.PNPO.1 ---
Subjective Date Patient Seen: 06/16/18 Time Patient Seen: 10:08 Interval history: Hospital day 9, postop day 2 following I and D of left foot ulcer and partial medial cuneiform exostectomy. Patient has remained stable. his limited ambulation on his left leg. he is currently on vancomycin and Ancef IV. He is awaiting placement at SNF. He is scheduled for a visit from [facility] staff today to evaluate him. Exam Vital Signs (past 8 hours): - 06/16/18 07:45 06/16/18 07:50 Temperature 97.9 F Pulse Rate 84 Respiratory Rate 18 Blood Pressure 110/74 Pulse Oximetry 97 94 Oxygen Delivery Method Room Air Oxygen Flow Rate 0 Narrative Exam Narrative: Patient responsive lying in bed in no acute distress. left foot. the dressing is dry without drainage or inflammation. A wound VAC in place. Objective Labs Result Diagrams: 06/15/18 08:30 06/15/18 08:30 Labs: Laboratory Results - last 24 hr 06/15/18 06/15/18 08:30 08:30 Sodium 140 Potassium 4.5 Chloride 102 Carbon Dioxide 29 BUN 14 Creatinine 0.70 Estimated GFR > 60.0 BUN/Creatinine Ratio 20.0 Glucose 115 H Calcium 9.4 C-Reactive Protein 1.1 H Vancomycin Trough 19.1 Assessment & Plan Post-op Postoperative Procedures Operation Date: 06/11/18 14:15 Actual Procedures Side Surgeon p I&D Foot diabetic ulcer/Infection, bone biopsy Left Radha Mendosa MD Plan: Patient awaiting SNF placement for further care. he will need to have his wound VAC changed tomorrow if he is still here. Discharge pending clearance by PCP. Quality VTE Deep Vein Thrombosis/Pulmonary Embolism Present on Admission: No
--- NOTE | 2018-06-16 10:45 | PT.IPTN ---
Current Diagnoses Type 2 diabetes mellitus with foot ulcer (06/07/18) Type 2 diabetes mellitus without complications (06/07/18) Surgery Performed Operation Date: 06/11/18 14:15 Actual Procedures p I&D Foot diabetic ulcer/Infection, bone biopsy(Left) - Radha Mendosa MD Physical Therapy Treatment Note M2 PT-IP Current Condition Start: 06/13/18 13:23 Freq: NEEDED Status: Active Protocol: Document 06/14/18 10:45 (Rec: 06/14/18 12:02 [email or web address]) Physical Therapy Current Condition Current Condition Evaluation Date 06/14/18 Treatment Diagnosis Debridement of L diabetic ulceration, osteomyelitis, impaired gait Onset Date 06/11/18 Precautions Other Precautions The patient will be nonweightbearing on the left lower extremity as much as possible. The patient may use a walking boot to offloading shoe for this or another offloading device such as a wheelchair crutches walker or knee scooter. The patient may put the heel or foot down for balance but is encouraged to offload as much as possible while attempting wound healing . Weight Bearing Status Weight Bearing Status Non-Weight Bearing Allowed Weight Bearing Amount (enter % on LLE or #) (%) M3 PT-IP Subjective Start: 06/13/18 13:23 Freq: NEEDED Status: Active Protocol: Document 06/16/18 11:28 GGD (Rec: 06/16/18 11:28 GGD [email or web address]) Subjective Physical Therapy Visit Type Type Patient Refusal Notes Pt refused states that he will be in the W/C until the wound heals and no point in trying to walk until then. M4 PT-IP Mobility and Gait Equipment Needed for Home Before axillary crutches Discharge
[2018-06-16] MEDS: INSULIN ASPART 100 UNIT/ML INSULN PEN SUBCUT (11:41)
--- NOTE | 2018-06-16 12:15 | CM.DPC ---
Addendum entered by Sylwia Mahmood R.N. 06/16/18 15:53: Spoke to Lynn Worthington. She stated [employer] should be able to provide a phone number, or way to get in touch with patient's case management rn, Natividad Crowder. Stated, if [facility] can't take patient back, it's up to his case management rn to assist with placement. She gave another number of: [phone], to try to reach his case management rn. Will try this tomorrow. Did let Lynn know that [facility] has not accepted patient. Lynn questions if [facility] will accept as well, for she stated, they are stricter than [facility]. Original Note: Addendum entered by Sylwia Mahmood R.N. 06/16/18 14:54: Natividad from [facility] called and they stated, they can't accept him. Main reason are his behaviors. She stated that when they reviewed, looking at his issues, drinking, etc, and current behavior, for this reason, they could not accept. Patient has told them that he will not leave [place]. Will attempt [facility], but is questionable if patient will consent to go. Original Note: Addendum entered by Sylwia Mahmood R.N. 06/16/18 14:28: [facility] did come to see patient. He was irritable, stated, Get the f out of my room. Spoke to Sona briefly. She stated that he is worried that they may not have his bed waiting for him at [facility]. Sona stated that she would run this by pension administrator, but unsure if they would be willing to accept. Patient was threatening to leave AMA. Milly, INFORMATION CONSULTANT, did speak to patient, for she knows him, and had Claudia, caregiver in the room. Patient continued to state his frustrations. He is feeling couped up, being here. Called Tracy at [facility]. She stated originally that they could only keep his bed up until 20 days. Asked her when this would be up, she stated, by around June 26. Called Aging and disability, to attempt to reach his [facility] case management rn, Natividad Crowder. They stated that they could not find phone number. Left a message with Lynn Worthington to call back, RN/Transitions of care. Called Tracy back and asked her if he could return there on P.O. meds, but wound vac. She stated that she would have to ask her pension administrator, due to possibility of wound vac coming out, and not having a 24 hour nurse. Stated, he may have his room after June 26, she just would have to come over and assess. Will continue to work with [facility], find out their response, and will contact [facility] again tomorrow. Original Note: Addendum entered by Sylwia Mahmood R.N. 06/16/18 12:56: Called [facility] to follow up as to when Sona would be here. Left a message on admissions line. Called [facility] as well to follow up with referral. Left a message with [facility]. Unknown if she is there today. Original Note: Addendum entered by Sylwia Mahmood R.N. 06/16/18 12:30: Have not yet seen Sona, and patient is agitated regarding who is coming to see patient today. Let nurse know that as soon as a time is given as far as when [facility] is here, will let patient know. Original Note: DCP Cont: Toya from [facility] in [facility] had left a message stating that Sona would be coming by the hospital today to evaluate this patient. Attempted to call her back, left her a message. Sona called, from [facility], and stated that she would be coming out to evaluate patient today. Have not yet seen her. Updated Dr. Gutiérrez today, as well as Deidra Oconnor. Will follow up with outcome of evaluation. P: Sona from [facility] is to be out here to evaluate patient. At this time, [facility] can't accept, and [facility] has no male beds available. Will follow up with [facility] as well. Sylwia Mahmood RN/Impression Printer
--- NOTE | 2018-06-16 16:45 | PC.NURSE ---
Pt awake and alert sitting up @ bedside playing cards. Dr. Mendosa has come in this evening shift and changed foam to patients left foot wound vac in anticipation of discharge. Reviewed with Dr. Mendosa care management's most recent note. Pt admits to headache pain and was given tylenol for such. Offered ativan, but pt declines. Pt is calm, cooperative and polite with staff. Assessment completed.
[2018-06-16] MEDS: INSULIN GLARGINE 100 UNIT/ML 3ML PEN 32 UNIT SUBCUT (20:47)
[2018-06-17 00:31] VITALS: O2SAT 96
[2018-06-17] MEDS: CEFAZOLIN 2 GM/100 ML FROZ.PIGGY IV ×3 (01:48→18:33)
[2018-06-17] MEDS: SODIUM CHLORIDE 0.9% FLUSH 10 ML IV ×3 (01:49→21:08)
[2018-06-17 02:02] VITALS: BP 118/58; PULSE 66; RESP 18; TEMP 36.7; O2SAT 94
[2018-06-17] MEDS: VANCOMYCIN 1,500 MG in SODIUM CHLORIDE 0.9% 500 ML 333 ML IV ×3 (02:27→18:34)
[2018-06-17 08:00] VITALS: BP 136/76; PULSE 87; RESP 20; TEMP 37.1; O2SAT 97
[2018-06-17] MEDS: ENOXAPARIN 40 MG/0.4 ML SYRINGE SUBCUT (08:00)
[2018-06-17] MEDS: NICOTINE 7 MG PATCH TOP (08:00)
[2018-06-17] MEDS: METFORMIN HCL 500 MG TABLET 1000 MG PO ×2 (08:00→16:57)
[2018-06-17] MEDS: ACETAMINOPHEN 325 MG TABLET PO (08:00)
[2018-06-17] MEDS: INSULIN GLARGINE 100 UNIT/ML 3ML PEN 35 UNIT SUBCUT (08:12)
--- NOTE | 2018-06-17 08:47 | PM.PN.1 ---
Subjective Date Patient Seen: 06/17/18 Time Patient Seen: 08:22 Interval history: Patient is sitting up on the side of the bed. Tells me that his blood sugar was low this morning. He does not feel well at those times. He has no acute complaints Exam Vital Signs (past 8 hours): - 06/17/18 02:02 06/17/18 08:00 Temperature 98.0 F 98.7 F Pulse Rate 66 87 Respiratory Rate 18 20 Blood Pressure 118/58 L 136/76 Pulse Oximetry 94 97 Oxygen Delivery Method Room Air Oxygen Flow Rate 0 Narrative Exam Narrative: GEN: sitting on side of bed answers questions appropriately. HEENT: NCAT, edentulous CV: Regular rate and rhythm, no murmurs, rubs or gallops Lungs: CTAB, no wheezes, rales, or rhonchi Extremities: Left foot bandaged with wound vac draining serosanguinous fluid Objective Labs Result Diagrams: 06/15/18 08:30 06/15/18 08:30 Assessment & Plan Assessment & Plan narrative: 58-year-old man with uncontrolled type 2 diabetes, medical noncompliance, charcot foot, chronic left lower extremity ulcer and tobacco use admitted with an open diabetic foot ulcer and evidence of osteomyelitis on MRI. Post op day 6 from irrigation, debridement, and bone biopsy. LLE diabetic foot ulcer - Wound MRSA, Klebsiella pneumoniae and group B strep. Continue cefazolin and vancomycin, will need six weeks of IV antibiotics. Today is day 10. Progress note from 06/10/18 with specific instructions from Infectious Disease. Given placement issues would try to contact ID again today for alternative regimen. - Appreciate ortho management. - Await new culture without change in organisms DM Type 2 - hypoglycemic on lantus 32 am/30 pm, will decrease pm dose - Continue metformin - Continue high dose sliding scale coverage Moderate COPD - at baseline Tobacco use - Nicotine patch Anxiety - prn lorazepam DVT prophylaxis: Lovenox FEN: continue carb controlled diet, Code: Full code Dispo: Will need SNF on discharge for IV antibiotics. Appreciate care management's efforts on this. So far [facility] and [facility] have declined this complicated patient. Quality VTE Deep Vein Thrombosis/Pulmonary Embolism Present on Admission: No
--- NOTE | 2018-06-17 08:54 | PM.PNPO.1 ---
Subjective Date Patient Seen: 06/17/18 Time Patient Seen: 08:54 Interval history: Hospital day 10, postop day 2 following left foot ulcer I&D and partial medial cuneiform exostectomy. He was seen by Dr. Mendosa yesterday evening and had his dressing and wound VAC changed. Patient is awaiting transfer to SNF. He is on IV antibiotic. No complaint of pain to the foot. has had limited weight-bearing. Exam Vital Signs (past 8 hours): - 06/17/18 02:02 06/17/18 08:00 Temperature 98.0 F 98.7 F Pulse Rate 66 87 Respiratory Rate 18 20 Blood Pressure 118/58 L 136/76 Pulse Oximetry 94 97 Oxygen Delivery Method Room Air Oxygen Flow Rate 0 Narrative Exam Narrative: Patient is alert and responsive lying in bed in no acute distress. left foot. dressing appears dry and VAC dressing in place. good color of toes. Objective Labs Result Diagrams: 06/15/18 08:30 06/15/18 08:30 Assessment & Plan Post-op Postoperative Procedures Operation Date: 06/11/18 14:15 Actual Procedures Side Surgeon p I&D Foot diabetic ulcer/Infection, bone biopsy Left Radha Mendosa MD Plan: Patient to continue on his IV antibiotics x6 weeks. Patient awaiting transfer to SNF for further treatment. would continue wound VAC for at least 2 weeks until he sees Dr. Mendosa for postop visit. IV antibiotics x6 weeks postop Quality VTE Deep Vein Thrombosis/Pulmonary Embolism Present on Admission: No
--- NOTE | 2018-06-17 10:02 | CM.DPC ---
Addendum entered by Sylwia Mahmood R.N. 06/17/18 11:03: Confirmed with Lynn, guillaume at [facility], that they also can't accept patient. Original Note: DCP Cont: Was able to locate Natividad Crowder's phone number, who is the pillowcase cleaner/RN [facility] for patient. Her phone number is: [phone]. Retrieved her phone number from [facility], [facility], which is: [phone]. Natividad's voice mail indicated that she is in office today. Left her a detailed message regarding pending placement, and uncertainity of [facility] accepting patient back. Will await response from her. Dr. Gray was in seeing patient. She is aware of yesterday's incident, and patient's behaviours. He stated that facility had not accepted him. He was compliant this morning. Dr. Gray had told patient why he was admitted. Patient had also stated yesterday he didn't want to leave [place]. Called [facility], and confirmed that they do not take his insurance. Called [facility], and confirmed that they do not take his insurance. Left a message with [facility]ary Andujar, and they are to call back. Confirmed again with Argenis at [facility] that they can't do a one time contract. Received a message from Ander at [facility], and he stated that they were reviewing his case. Called him back and left a message to inquire upon decision, and if an on site visit was planned. Will await call back. Still attempting placement for patient. MS MillyW, had spoken to Dr. Gray this morning, for this pillowcase cleaner was not at her desk. She inquired about possibility of trying to change patient to P.O. meds. Dr. Gray stated that she would talk to infectious disease provider. P: DCP to continue to follow and attempt placement. Will await call back from Natividad, and will follow up with [facility]. Sylwia Mahmood RN/Route Relief Driver
[2018-06-17 11:31] LABS: Vancomycin Trough 18.8 ug/mL (10-20)
[2018-06-17] MEDS: VANCOMYCIN TROUGH 1 REQUEST MISC (11:50)
[2018-06-17] MEDS: INSULIN ASPART 100 UNIT/ML INSULN PEN SUBCUT (11:52)
--- NOTE | 2018-06-17 14:19 | PT.IPTN ---
Current Diagnoses Type 2 diabetes mellitus with foot ulcer (06/07/18) Type 2 diabetes mellitus without complications (06/07/18) Surgery Performed Operation Date: 06/11/18 14:15 Actual Procedures p I&D Foot diabetic ulcer/Infection, bone biopsy(Left) - Radha Mendosa MD Physical Therapy Treatment Note M2 PT-IP Current Condition Start: 06/13/18 13:23 Freq: NEEDED Status: Active Protocol: Document 06/14/18 10:45 HH (Rec: 06/14/18 12:02 [email or web address]) Physical Therapy Current Condition Current Condition Evaluation Date 06/14/18 Treatment Diagnosis Debridement of L diabetic ulceration, osteomyelitis, impaired gait Onset Date 06/11/18 Precautions Other Precautions The patient will be nonweightbearing on the left lower extremity as much as possible. The patient may use a walking boot to offloading shoe for this or another offloading device such as a wheelchair crutches walker or knee scooter. The patient may put the heel or foot down for balance but is encouraged to offload as much as possible while attempting wound healing . Weight Bearing Status Weight Bearing Status Non-Weight Bearing Allowed Weight Bearing Amount (enter % on LLE or #) (%) M3 PT-IP Subjective Start: 06/13/18 13:23 Freq: NEEDED Status: Active Protocol: Document 06/17/18 14:17 SA (Rec: 06/17/18 14:19 SA [email or web address]) Subjective Physical Therapy Visit Type Type Patient Refusal Notes Spoke with patient this AM and pt agreeable to get up this afternoon, returned this afternoon and pt refused stating it was already too late. Explained that we had waited for IV antibiotics to be finished prior to getting up but patient still declined. M4 PT-IP Mobility and Gait Start: 06/13/18 13:23 Freq: NEEDED Status: Active Protocol: Document 06/15/18 10:14 AMB (Rec: 06/15/18 10:25 AMB [email or web address]) PT-Bed Mobility Assessment Rolling Type of Rolling Roll to Right Level of Assist Independent Supine to Sit Supine to Sit Independent Head of Bed Elevated Bedrails Sit to Supine Sit to Supine Independent Head of Bed Elevated Bedrails PT-Transfer Assessment Sit to and From Stand Sit to and from Stand Independent Use of Upper Extremities Equipment Transfer Assistive Device Straight Cane Transfers Transfer Destination Bed Chair Transfer Technique Stand Pivot Transfer Ability Level of Assist Standby Assistance Use of Upper Extremities Comments Mobility Comments Pt required max cues regarding weightbearing status, and continues to tend to weightbear through heel, but does try to avoid putting pressure on forefoot. Encouraged to continue to avoid putting pressure through L foot wiht transfers. Gait Assessment Comments Gait Comments Pt was not wearing a gown in bed, and was not willing to wear one due to them not fitting right. Therefore gait training was not tried today. Pt did use a sheet to cover himself during all bed mobility and stand pivot transfer to chair. M5 PT-IP Objective Assessments Start: 06/13/18 13:23 Freq: NEEDED Status: Active Protocol: Document 06/14/18 10:45 HH (Rec: 06/14/18 12:02 [email or web address]) Orientation Orientation/Cognition Level of Alertness Alert Orientation Name Age Birthday Month Date Year Day of Week Place Situation Language Function Ability No Deficits Noted Safety Awareness Decreased Safety Awareness Memory Description No Deficits Noted Gross Range of Motion Upper Extremity ROM Assessment Within Functional Limits Lower Extremity ROM Assessment Left Impaired Impairments L ankle with gauze L charcot foot Strength Upper Extremity Strength Assessment Within Functional Limits Lower Extremity Strength Assessment Left Impaired Comments Strength Comments NWB on L foot Coordination Assessment Gross Coordination Gross Coordination WNL Sensation Assessment Sensation Gross Sensation WNL Light Touch Intact Proprioception (Position) Intact Muscle Tone Muscle Tone WNL Yes M6 PT-IP Treatment Start: 06/13/18 13:23 Freq: NEEDED Status: Active Protocol: Document 06/14/18 10:45 HH (Rec: 06/14/18 12:02 [email or web address]) Physical Therapy Treatment Education Education Provided Safety M7 PT-IP Assessment and Plan Start: 06/13/18 13:23 Freq: NEEDED Status: Active Protocol: Document 06/15/18 10:14 AMB (Rec: 06/15/18 10:25 AMB [email or web address]) PT Summary Assessment and Plan Summary Assessment Summary Did not attempt gait training today due to pt not being willing to wear a gown. Pt very polite otherwise with transfer, but does tend to weightbear through the heel despite encouragement to offload left foot as much as possible. Pt will need SNF rehab due to IV antibiotics. Frequency of Treatment Frequency Of Treatment Once a Day Treatment Plan Physical Therapy Treatment Plan Bed Mobility Training Transfer Training Gait Training Therapeutic Exercise Other Recommendations and Next Treatment transfer / amb with LRAD in Focus the hallway follow by chair. Discharge Recommendations PT Discharge Recommendations SNF Rehab Other Discharge Recommendations Pt will only amb with PT at this point and cont to mobilize with nursing staff only for transfers/BSC. He will need SNF to improve mobility and address his medical needs for IV antibiotic and wound management Equipment Needed for Home Before axillary crutches Discharge
--- NOTE | 2018-06-17 15:10 | CM.DPC ---
DCP Cont: Had not yet heard back from [facility]. Called to follow up. Spoke to Divina in admissions. Gave her update on patient. Let her know that Ander may have information on patient, for he had called to follow up this morning, but had not yet heard back. Gave her patient's name, and short history regarding living at [place], and his osteomyelitis. Let her know that patient is on IV antibiotics for several more weeks, as well as having a wound vac. Confirmed with her that they do accept his insurance, [employer]. Faxed over clinical notes, which include history and physical, recent prog notes, as well as operative notes to [facility]. Let her know that she would be receiving this information shortly. She stated that she can do an on-site visit tomorrow, Thursday. Encouraged her to call case finishing machine adjuster with a time, which will be Buffy, tomorrow. On fax, asked that she check in with care management before seeing patient. It would also be appropriate to update patient tomorrow when on-site visit time is confirmed. Have not yet received call back from [facility] case finishing machine adjuster, Natividad. P: DCP to continue to follow. Follow up with Divina at [facility] tomorrow with time of visit, and update patient. Sylwia Mahmood RN/Produce Buyer
[2018-06-17 16:00] VITALS: BP 135/90; PULSE 76; RESP 18; O2SAT 96
--- NOTE | 2018-06-17 17:20 | PC.NURSE ---
Addendum entered by Windy Schreiber R.N. 06/17/18 22:31: Pt discusses with this radio news writer difficulty returning to sleep once awoken. States feels as though sleeplessness has affected mood negatively. Pt is appropriately and calmly conversant with this radio news writer and expresses feelings effectively. Discussed with pt use of lorazepam to aid in sleep and pt agreeable. This was given following hs snack with Lantus insulin. Wound vac remains active and functional with dressing to left foot intact. Original Note: Pt calm and cooperative. Requests assistance with shower and this was done by SUPERCHARGE REPAIR SUPERVISOR. Pt showered and returned to bed and connects self to wound vac. Taking evening meal well.
[2018-06-17 20:42] VITALS: BP 119/77; PULSE 70; RESP 16; TEMP 36.4; O2SAT 95
[2018-06-17] MEDS: LORazepam 0.5 MG TABLET PO (21:08)
[2018-06-17] MEDS: INSULIN GLARGINE 100 UNIT/ML 3ML PEN 32 UNIT SUBCUT (21:10)
[2018-06-18] VITALS (9 sets, daily range): BP systolic 111–132; BP diastolic 63–88; PULSE 68–90; RESP 16–20; TEMP 36.1–36.9; O2SAT 93–97
[2018-06-18] MEDS: CEFAZOLIN 2 GM/100 ML FROZ.PIGGY IV ×3 (02:06→18:03)
[2018-06-18] MEDS: SODIUM CHLORIDE 0.9% FLUSH 10 ML IV ×3 (02:08→22:28)
[2018-06-18] MEDS: VANCOMYCIN 1,500 MG in SODIUM CHLORIDE 0.9% 500 ML 333 ML IV ×3 (02:50→19:40)
--- NOTE | 2018-06-18 08:48 | PM.PNPO.1 ---
Subjective Date Patient Seen: 06/18/18 Time Patient Seen: 08:48 Interval history: Patient is hospital day 11, postop day 3 following left foot ulcer I&D and partial medial cuneiform exostectomy. He continues to deny pain and has no complaints. Exam Vital Signs (past 8 hours): - 06/18/18 02:15 06/18/18 02:18 06/18/18 07:00 Temperature 98.0 F 98.5 F Pulse Rate 77 68 Respiratory Rate 16 16 Blood Pressure 126/66 111/63 Pulse Oximetry 95 95 93 Oxygen Delivery Method Room Air Oxygen Flow Rate 0 Narrative Exam Narrative: Patient resting comfortably in bed in no acute distress. Dressing with wound vac in place is CDI. No change in sensation since last exam. Good color in the toes, able to flex toes. Objective Labs Result Diagrams: 06/15/18 08:30 06/15/18 08:30 Labs: Laboratory Results - last 24 hr 06/17/18 10:30 Vancomycin Trough 18.8 Assessment & Plan Post-op (1) Diabetes: (2) Diabetic foot ulcer: (3) Diabetic polyneuropathy associated with type 2 diabetes mellitus: Postoperative Procedures Operation Date: 06/11/18 14:15 Actual Procedures Side Surgeon p I&D Foot diabetic ulcer/Infection, bone biopsy Left Radha Mendosa MD Continue wound vac/dressing changes every three days, next change either Thursday or Thursday. Continue to mobilize with PT. Discharge still pending to a SNF per hospitalist team. Postoperative day: 3 Quality VTE Deep Vein Thrombosis/Pulmonary Embolism Present on Admission: No
[2018-06-18] MEDS: INSULIN GLARGINE 100 UNIT/ML 3ML PEN 30 UNIT SUBCUT (09:04)
[2018-06-18] MEDS: METFORMIN HCL 500 MG TABLET 1000 MG PO ×2 (09:06→17:02)
[2018-06-18] MEDS: NICOTINE 7 MG PATCH TOP (09:06)
[2018-06-18] MEDS: ENOXAPARIN 40 MG/0.4 ML SYRINGE SUBCUT (09:06)
--- NOTE | 2018-06-18 10:18 | PC.NURSE ---
Nurse Coordinator Note: Noticed Pt dressed and in electirc w/c heading toward the elevator. Asked Pt what was going on and he stated that he was leaving. He was concerned about losing his spot at [facility] and needed to get his stuff. Milly Sampson happened to walk by and offer to help. Pt agreed to return to room. Milly and Heide discussed concerns together and also with Argenis (from [facility]) who also happened to come by. They will discuss the Pt's concern and talk with the Pt further. Pt continues in room at this time.
--- NOTE | 2018-06-18 11:08 | PC.NURSE ---
Addendum entered by Beverly Larose R.N. 06/18/18 13:21: SILVANA RN up to see pt around 1300, after message left by this loan underwriter. PICC line hard to flush, does get blood return with each flush still. SILVANA RN reported had instilled Heparin in PICC line, okay to infuse after 1335. Original Note: Day Shift- Pt yelling at Information Coordinator this morning, frustrated with discharge to SNF and concerned with getting ejected from home. Upon this writers assessment, pt yelling out loud, where's my medication. Pt had flat affect once loan underwriter in his room, not verbally interactive, not answering questions. Pt did allow to give medications and have loan underwriter perform assessment. According to RN Coordinator, pt was found at the elevators in his motorized wheelchair with his own clothes on around 1000. See Hosea Ferguson RN note. Around 1100, pt cooperative with care, still flat affect, asking for snack, saying thank you. Will monitor.
--- NOTE | 2018-06-18 12:48 | PM.PN.1 ---
Subjective Date Patient Seen: 06/18/18 Time Patient Seen: 12:49 Interval history: Patient attempted to leave and was caught before getting on the elevator this morning. By the time I see him he is in his street clothes are old lying on the bed. Wound VAC has been replaced. He currently has no acute complaints is eating am breathing well. Has no complaints of pain to his left foot. He is concerned about having a place to return after he is treated for his foot infection. Exam Vital Signs (past 8 hours): - 06/18/18 07:00 06/18/18 08:20 06/18/18 08:55 Temperature 98.5 F Pulse Rate 68 Respiratory Rate 16 Blood Pressure 111/63 Pulse Oximetry 93 94 94 06/18/18 11:55 Temperature 97 F L Pulse Rate 83 Respiratory Rate 18 Blood Pressure 132/88 Pulse Oximetry 93 Oxygen Delivery Method Room Air Oxygen Flow Rate 0 Narrative Exam Narrative: GEN: Lying in bed answers questions appropriately. HEENT: NCAT, edentulous CV: Regular rate and rhythm, no murmurs, rubs or gallops Lungs: CTAB, no wheezes, rales, or rhonchi Extremities: Left foot bandaged with wound vac draining serosanguinous fluid, toes with scaling skin Objective Labs Result Diagrams: 06/15/18 08:30 06/15/18 08:30 Assessment & Plan Assessment & Plan narrative: 58-year-old man with uncontrolled type 2 diabetes, medical noncompliance, charcot foot, chronic left lower extremity ulcer and tobacco use admitted with an open diabetic foot ulcer and evidence of osteomyelitis on MRI as well as acute and chronic on bone biopsy. Post op day 7 from irrigation, debridement, and bone biopsy. LLE diabetic foot ulcer - Wound MRSA, Klebsiella pneumoniae and group B strep. Continue cefazolin and vancomycin, will need six weeks total of IV antibiotics. Today is day 11. Progress note from 06/10/18 with specific instructions from Infectious Disease. Given placement issues will try to contact ID again today for alternative regimen. - Appreciate ortho management. - Consider discontinuing contact precautions given length of antibiotic therapy DM Type 2 - hypoglycemic on lantus 35 am/32 pm, better on a 32 am/30 pm regimen - Continue metformin - Has not needed high dose sliding scale coverage Moderate COPD - at baseline Tobacco use - Nicotine patch Anxiety - prn lorazepam DVT prophylaxis: Lovenox FEN: continue carb controlled diet, Code: Full code Dispo: Will need SNF on discharge for IV antibiotics. Appreciate care management's efforts on this. So far [facility] have declined this complicated patient. [facility] to visit today. Care management working to assure that he can return to [place] when therapy is complete. Time Spent With Patient Time with patient: 25 - 35 minutes Quality VTE Deep Vein Thrombosis/Pulmonary Embolism Present on Admission: No
--- NOTE | 2018-06-18 13:05 | PT.IPTN ---
Current Diagnoses Type 2 diabetes mellitus with diabetic polyneuropathy (06/07/18) Type 2 diabetes mellitus with foot ulcer (06/07/18) Type 2 diabetes mellitus without complications (06/07/18) Non-pressure chronic ulcer of left heel and midfoot with unspecified severity (06/07/18) Surgery Performed Operation Date: 06/11/18 14:15 Actual Procedures p I&D Foot diabetic ulcer/Infection, bone biopsy(Left) - Radha Mendosa MD Physical Therapy Treatment Note M2 PT-IP Current Condition Start: 06/13/18 13:23 Freq: NEEDED Status: Active Protocol: Document 06/14/18 10:45 HH (Rec: 06/14/18 12:02 [id number]) Physical Therapy Current Condition Current Condition Evaluation Date 06/14/18 Treatment Diagnosis Debridement of L diabetic ulceration, osteomyelitis, impaired gait Onset Date 06/11/18 Precautions Other Precautions The patient will be nonweightbearing on the left lower extremity as much as possible. The patient may use a walking boot to offloading shoe for this or another offloading device such as a wheelchair crutches walker or knee scooter. The patient may put the heel or foot down for balance but is encouraged to offload as much as possible while attempting wound healing . M7 PT-IP Assessment and Plan Start: 06/13/18 13:23 Freq: NEEDED Status: Active Protocol: Document 06/18/18 13:00 HH (Rec: 06/18/18 13:05 [id number]) PT Summary Assessment and Plan Frequency of Treatment Frequency Of Treatment Discharge Discharge Recommendations PT Discharge Recommendations SNF Rehab Other Discharge Recommendations Pt in bed but awake and refuses to partipate PT (3rd time in two days). Explained his NWB status again and pt stated I dont need PT anymore and i wont be here long as well. Discharge form PT service. Pt has poor self care management and decision making skills. Pt will benefit from residential care to manage his medical and self care needs.
--- NOTE | 2018-06-18 16:26 | CM.DPC ---
dCP: continued: Case received, EMR reviewed and have had multiple discussions with care team members and pt throughout the day. Have spoken several times with pt, many times with Argenis/BRYSON and received updates from [facility] and [facility]. Approx total of 2.5 hours spend working on a safe and appropriate d/c plan for this pt today. Updates: [facility] just found out they are no longer contracted with [facility]: updated by Etta as per info given to her by her center administrator Ander. Sona/[facility] liaison [facility] and [facility] and asked them to reconsider this pt in view of more clarity re the d/c from snf plan. [facility] facility is full. [facility] and [facility] have asked her to not request any more reviews on this pt. They strongly state that because of the behavior pt exhibited when Sona came to interview him they will not consider accepting him now or in the future. Argenis/BRYSON had a meeting with Jose Garcia/Applications Consultant of and [facility]/ center administrator of the facility. She reports that they are willing to accept pt if he does complete his IV antibiotics and wound vac treatment and as long as he is not gone for more that the 5 or so weeks needed for the IV treatment. Argenis did come to see pt this afternoon at 1530 to update him. Had talked to him earlier and prepped him for same and the visit seemed positive. Pt himself has had some done some venting today re this fear and frustration re this situation and especially the idea that he may lose his home at [facility]. He has also apologized to several of the care team members including this DCPlanner and stated that he is thankful that the team is continuing to try to help him. A VM was left early this morning for pt's Medicaid CM: Natividad Thais: [phone]. She has not yet responded to this VM or the one left yesterday by DCP RN Val. ELANA Colby spend time calling the snfs in [place] to see which are contracted with [facility]. Will update this list in notes tomorrow.
[2018-06-18] MEDS: INSULIN ASPART 100 UNIT/ML INSULN PEN SUBCUT (17:04)
[2018-06-18] MEDS: INSULIN GLARGINE 100 UNIT/ML 3ML PEN 32 UNIT SUBCUT (20:57)
[2018-06-18] MEDS: LORazepam 0.5 MG TABLET PO (22:28)
[2018-06-19] VITALS (8 sets, daily range): BP systolic 108–140; BP diastolic 61–89; PULSE 68–81; RESP 16–20; TEMP 36.2–36.8; O2SAT 92–98
--- NOTE | 2018-06-19 00:04 | PC.NURSE ---
Patient cooperative and polite throughout shift; this RN spent 5-10 minutes of therapeutic listening regarding patient's history, including homelessness, and subjective rapid decline; wound vac @ 125 with scant output during shift; PPP to bilateral feet; chronic neuropathic numbness to bilateral lower extremities, feet to knees; LS clear, O2 RA=96%; patient denies pain throughout shift, but requests PO ativan for sleep @ 2200; call light activated, as needed.
[2018-06-19] MEDS: SODIUM CHLORIDE 0.9% FLUSH 10 ML IV ×3 (01:59→20:07)
[2018-06-19] MEDS: CEFAZOLIN 2 GM/100 ML FROZ.PIGGY IV ×3 (01:59→17:21)
[2018-06-19] MEDS: VANCOMYCIN 1,500 MG in SODIUM CHLORIDE 0.9% 500 ML 333 ML IV ×3 (02:50→18:05)
[2018-06-19] MEDS: INSULIN GLARGINE 100 UNIT/ML 3ML PEN 30 UNIT SUBCUT (07:56)
[2018-06-19] MEDS: NICOTINE 7 MG PATCH TOP (07:57)
[2018-06-19] MEDS: ENOXAPARIN 40 MG/0.4 ML SYRINGE SUBCUT (07:57)
[2018-06-19] MEDS: METFORMIN HCL 500 MG TABLET 1000 MG PO ×2 (07:57→17:21)
--- NOTE | 2018-06-19 08:38 | P.PN_ITS ---
Subjective Date Patient Seen: 06/19/18 Time Patient Seen: 08:36 Interval history: The patient has no complaints this morning. He has been interviewed by several halfway facilities and at this point we have not been able to establish a possible transfer for him. He is due for change of the wound VAC tomorrow morning Exam Vital Signs (past 8 hours): - 06/19/18 02:20 06/19/18 02:24 06/19/18 07:36 Temperature 98.3 F 97.2 F L Pulse Rate 77 77 Respiratory Rate 16 18 Blood Pressure 108/61 134/89 Pulse Oximetry 98 96 97 06/19/18 08:04 Temperature Pulse Rate Respiratory Rate Blood Pressure Pulse Oximetry 97 Oxygen Delivery Method Room Air Oxygen Flow Rate 0 Narrative Exam Narrative: Left foot wound is dressed with a wound VAC which appears to be functioning normally. There is no drainage on the overlying dressing. Objective Labs Result Diagrams: 06/15/18 08:30 06/15/18 08:30 Assessment & Plan Post-op Postoperative Procedures Operation Date: 06/11/18 14:15 Actual Procedures Side Surgeon p I&D Foot diabetic ulcer/Infection, bone biopsy Left Radha Mendosa MD Postoperative day: 12 Postoperative status: doing well Postoperative status narrative: The patient is stable postoperative day 12 status post I and D and bone excision for a chronic diabetic foot ulcer and Charcot foot. Challenges for him are primarily discharge related. Postoperative plan: routine post-op care and discharge Postoperative plan narrative: The discharge planning team is currently evaluating halfway transfer in [place] as local options have been exhausted. We will change the wound VAC tomorrow. Time Spent With Patient less than 15 minutes Quality VTE Deep Vein Thrombosis/Pulmonary Embolism Present on Admission: No
--- NOTE | 2018-06-19 10:49 | PM.PN.1 ---
Subjective Date Patient Seen: 06/19/18 Time Patient Seen: 10:49 Interval history: Osteomyelitis Status quo apparently wound VAC was changed this morning. Patient concerned that the current equipment not functioning correctly. Apparently orthopedic people to recheck somewhat soon. Meanwhile blood sugar management appears stable. Otherwise patient has no complaints Exam Vital Signs (past 8 hours): - 06/19/18 07:36 06/19/18 08:04 Temperature 97.2 F L Pulse Rate 77 Respiratory Rate 18 Blood Pressure 134/89 Pulse Oximetry 97 97 Oxygen Delivery Method Room Air Oxygen Flow Rate 0 Narrative Exam Narrative: General exam is unchanged as noted the tubing from the wound VAC has no drainage Objective Labs Result Diagrams: 06/15/18 08:30 06/15/18 08:30 Labs: No recent labs. Chem BGs have been running from 100-150 Assessment & Plan Assessment & Plan narrative: 1. Osteomyelitis stable wound VAC treatment as per Orthopedics. 2. Antibiotics stable on vancomycin and cefazolin. 3. Diabetes management seemingly well controlled. 4. Discharge planning forthcoming Quality VTE Deep Vein Thrombosis/Pulmonary Embolism Present on Admission: No
--- NOTE | 2018-06-19 15:33 | CM.DPC ---
DCP: continued: please see prior notes of yesterday as will not replicate those in this note. Spoke with Dr. Velez/kelvin peña today. He will be in tomorrow to change wound vac dressing. He and Dr. Gutiérrez are aware that pt will continue care in the hospital setting until an accepting snf is found. Checked in with pt. He was found sitting up at bedside table, chatting with staff as they go by in [place] and playing cards. He waves to this DCPlanner and says I'm trying to keep myself occupied. JYOTI Colby had called snfs in [place] at end of day yesterday re [facility]/[place] facilities. She identified: Am following up on these leads this afternoon[facility]. [facility]: YES: call x 2 attempts: no answer to main facility line [facility] [place] Yes [facility]: NO [facility]: NO [facility]: NO but will consider single case agreement [facility]: YES: called and spoke with embossing press operator apprentice. She stated admissions staff in only a couple of hours each weekend day. Transferred to admission office and left a . [facility]: unknown OF NOTE: this is a sister facility of [facility] and [facility]: may consider asking if they would consider a single case agreement...this would need to be a discussion with Argenis/BRYSON and to include Jose Garcia and [facility] Would not approach this until Thursday and after seeing what the [place] facilities say. P: continue to work on this tomorrow.
[2018-06-19] MEDS: INSULIN ASPART 100 UNIT/ML INSULN PEN SUBCUT (17:21)
[2018-06-19] MEDS: INSULIN GLARGINE 100 UNIT/ML 3ML PEN 32 UNIT SUBCUT (20:35)
[2018-06-19] MEDS: LORazepam 0.5 MG TABLET PO (20:37)
[2018-06-20] VITALS (10 sets, daily range): BP systolic 109–139; BP diastolic 64–89; PULSE 71–92; RESP 16–19; TEMP 36.7–36.9; O2SAT 94–99
[2018-06-20] MEDS: SODIUM CHLORIDE 0.9% FLUSH 10 ML IV ×3 (02:06→20:56)
[2018-06-20] MEDS: CEFAZOLIN 2 GM/100 ML FROZ.PIGGY IV ×3 (02:06→17:34)
[2018-06-20] MEDS: VANCOMYCIN 1,500 MG in SODIUM CHLORIDE 0.9% 500 ML 333 ML IV ×3 (02:47→18:35)
[2018-06-20] MEDS: METFORMIN HCL 500 MG TABLET 1000 MG PO ×2 (07:56→16:53)
[2018-06-20] MEDS: ENOXAPARIN 40 MG/0.4 ML SYRINGE SUBCUT (07:57)
[2018-06-20] MEDS: NICOTINE 7 MG PATCH TOP (07:57)
[2018-06-20] MEDS: INSULIN ASPART 100 UNIT/ML INSULN PEN SUBCUT ×3 (07:57→16:53)
[2018-06-20] MEDS: INSULIN GLARGINE 100 UNIT/ML 3ML PEN 30 UNIT SUBCUT (07:59)
--- NOTE | 2018-06-20 09:30 | P.PN_ITS ---
Subjective Date Patient Seen: 06/20/18 Time Patient Seen: 09:28 Interval history: The patient reports he is comfortable. His wound VAC was changed yesterday by Lisa Adrian PA-C. We continue to await intermediate placement. Exam Vital Signs (past 8 hours): - 06/20/18 02:00 06/20/18 02:13 06/20/18 07:30 Temperature 98.1 F 98.0 F Pulse Rate 76 82 Respiratory Rate 18 18 Blood Pressure 130/74 139/80 Pulse Oximetry 95 95 97 06/20/18 07:42 06/20/18 08:34 Temperature Pulse Rate 74 Respiratory Rate 16 Blood Pressure Pulse Oximetry 97 96 Fraction of Inspired Oxygen 21 Oxygen Delivery Method Room Air Oxygen Flow Rate 0 Narrative Exam Narrative: Left foot dressing is intact. Wound VAC is working as intended. There is no surrounding erythema. Objective Labs Result Diagrams: 06/15/18 08:30 06/15/18 08:30 Assessment & Plan Post-op Postoperative Procedures Operation Date: 06/11/18 14:15 Actual Procedures Side Surgeon p I&D Foot diabetic ulcer/Infection, bone biopsy Left Radha Mendosa MD Postoperative day: 13 Postoperative status: doing well Postoperative status narrative: The patient is stable postoperative day 13 with his wound VAC. At this point we are awaiting intermediate placement. Postoperative plan: routine post-op care Postoperative plan narrative: We will continue to work with discharge planning to work towards eventual placement. Quality VTE Deep Vein Thrombosis/Pulmonary Embolism Present on Admission: No
--- NOTE | 2018-06-20 13:14 | P.PN_ITS ---
Subjective Date Patient Seen: 06/20/18 Time Patient Seen: 13:13 Interval history: Osteomyelitis. Status quo good appetite pleased that the drainage to system is working better today. Has minimal pain overall feeling comfortable. Exam Vital Signs (past 8 hours): - 06/20/18 07:30 06/20/18 07:42 06/20/18 08:34 Temperature 98.0 F Pulse Rate 82 74 Respiratory Rate 18 16 Blood Pressure 139/80 Pulse Oximetry 97 97 96 06/20/18 11:20 Temperature 98.3 F Pulse Rate 84 Respiratory Rate 16 Blood Pressure 109/64 Pulse Oximetry 97 Fraction of Inspired Oxygen 21 Oxygen Delivery Method Room Air Oxygen Flow Rate 0 Narrative Exam Narrative: Appears usual self there is indeed drainage coming from the woun d VAC to Chem BGs have been adequate Objective Labs Result Diagrams: 06/15/18 08:30 06/15/18 08:30 Labs: No recent lab Assessment & Plan Assessment & Plan narrative: Osteomyelitis stable. Receiving intravenous antibiotics and wound VAC treatment 2. Diabetes stable. 3. Discharge planning forthcoming Quality VTE Deep Vein Thrombosis/Pulmonary Embolism Present on Admission: No
[2018-06-20] MEDS: ACETAMINOPHEN 325 MG TABLET PO (20:56)
[2018-06-20] MEDS: LORazepam 0.5 MG TABLET PO (20:56)
[2018-06-20] MEDS: INSULIN GLARGINE 100 UNIT/ML 3ML PEN 32 UNIT SUBCUT (20:57)
[2018-06-21] VITALS (8 sets, daily range): BP systolic 120–130; BP diastolic 71–78; PULSE 71–80; RESP 16–20; TEMP 36.4–36.7; O2SAT 96–99
[2018-06-21] MEDS: CEFAZOLIN 2 GM/100 ML FROZ.PIGGY IV ×3 (01:15→18:35)
[2018-06-21] MEDS: VANCOMYCIN 1,500 MG in SODIUM CHLORIDE 0.9% 500 ML 333 ML IV ×3 (02:07→19:05)
--- NOTE | 2018-06-21 05:55 | PC.NURSE ---
ELECTRONIC DEVICE REPAIRER note patient refused vitals second set. Was sleeping
--- NOTE | 2018-06-21 07:19 | PM.PNPO.1 ---
Subjective Date Patient Seen: 06/21/18 Time Patient Seen: 07:20 Interval history: Patient denies pain. resting comfortably. Otherwise without complaints. Exam Vital Signs (past 8 hours): - 06/21/18 00:13 06/21/18 05:00 Temperature 98.0 F Pulse Rate 80 Respiratory Rate 16 16 Blood Pressure 122/74 Pulse Oximetry 97 Fraction of Inspired Oxygen 21 Oxygen Delivery Method Room Air Oxygen Flow Rate 0 Wound drainage 150 mL serosanguineous fluid Narrative Exam Narrative: 58-year-old male resting comfortably in bed in no apparent distress. left foot dressing is clean, dry and intact. Wound VAC is on and functioning. Objective Labs Result Diagrams: 06/15/18 08:30 06/15/18 08:30 Assessment & Plan Post-op Postoperative Procedures Operation Date: 06/11/18 14:15 Actual Procedures Side Surgeon p I&D Foot diabetic ulcer/Infection, bone biopsy Left Radha Mendosa MD Status post excisional debridement left diabetic foot medial ulceration with osteomyelitis, excisional debridement left foot plantar ulceration June 11, 2018. Ortho recs - Change wound vac every 3 days, next wound VAC change would be due . -will need wound VAC orders for snf. Anticipate 2-3 months of need. Medium wound VAC sponge sufficient. Wound sizes are wound 1 medial (6 cm x 4 cm x 0.5 cm deep- with approximately 2 cm of tunneling) wound 2. Plantar 1st metatarsal: 1.5 cm x 1.5 cm x 1 cm deep. - Touchdown weight-bearing but should try to be off the foot or nonweightbearing as much as possible - May use Cam Walker or offloading shoe for immobilization and protection - Follow up in ortho clinic approximately 2 weeks to assess progress and wound healing --no further surgery during this hospitalization anticipated. Patient is due for wound VAC change tomorrow. Antibiotics: IV vancomycin and cefazolin Patient is waiting for senior living facility placement. Quality VTE Deep Vein Thrombosis/Pulmonary Embolism Present on Admission: No
[2018-06-21] MEDS: METFORMIN HCL 500 MG TABLET 1000 MG PO ×2 (08:27→16:46)
[2018-06-21] MEDS: NICOTINE 7 MG PATCH TOP (08:28)
[2018-06-21] MEDS: ENOXAPARIN 40 MG/0.4 ML SYRINGE SUBCUT (08:28)
[2018-06-21] MEDS: INSULIN ASPART 100 UNIT/ML INSULN PEN SUBCUT ×2 (08:30→18:29)
[2018-06-21] MEDS: INSULIN GLARGINE 100 UNIT/ML 3ML PEN 30 UNIT SUBCUT (08:31)
[2018-06-21] MEDS: SODIUM CHLORIDE 0.9% FLUSH 10 ML IV ×2 (10:12→21:20)
--- NOTE | 2018-06-21 10:32 | PC.NURSE ---
Day shift: Pt calm and cooperative with care today. Wound vac functioning. Dressing on left foot CDI. Blood sugars remain controlled. Pt eating well. Has no complaints. He does state that he wants to stay at this hospital for the rest of his IV antibiotic course. SS still looking for placement.
--- NOTE | 2018-06-21 10:39 | PC.NURSE ---
Day shift: This technical proposal writer contacted Xiomara West about the possibility of getting Ray a t-shirt and sweatpants. Xiomara stated that he would do his best this afternoon.
--- NOTE | 2018-06-21 11:03 | CM.DPC ---
Addendum entered by Sylwia Mahmood R.N. 06/21/18 15:17: Attempted [facility], they are not contracted with [facility]. [facility]. Original Note: Addendum entered by Sylwia Mahmood R.N. 06/21/18 14:55: Spoke with ZULLY Bailey at [facility]. She stated, its not easy finding placement for this type of case, for they have had others in similar experiences. Confirmed that her social studies teacher, Natividad, is more to help with [place] placements, other than temporary correction facilities. Lynn also stated that she tried to call patient in his room, and he did not answer. She stated that she would try tomorrow. Tried another facility. [facility] in [place]. Spoke to Camila in admissions, and described patient's needs. She stated that they could not accomidate patient at this time. Will continue to reach out to other facilities. Original Note: Addendum entered by Sylwia Mahmood R.N. 06/21/18 12:37: Spoke to ANGELINA Gomez at [facility]. She stated, she wants to see prog notes from social work, as to what his behaviors are all about. Let her know that nurse/telephonic case manager was on the case. She wanted to know why [facility] couldn't take him back on home health and infusions. Let her know that facility could not accept patient with PICC and wound vac, since there is not 24 hour care. She continued to question this, and stated, I have never heard of this. Let her know that this telephonic case manager would send her prognotes at her request. Will fax them to : [phone]. Original Note: Addendum entered by Sylwia Mahmood R.N. 06/21/18 11:38: Spoke to Brandin in admissions at [facility]. His number is: [phone]. He asked if patient was still smoking. Let him know that patient has been compliant with following no smoking rules. He has been wearing nicoderm patch. He asked why patient could not go closer to this area. Explained that insurance was part of the reason, as well as behaviors. Let him know that these behaviors are not frequent. He had been concerned about losing his room at [facility]. He stated that his DNS would review his case, and let us know. Original Note: DCP Cont: Was able to reach Natividad Brianthao at [facility]. She stated that her role is more of advocating for [place] care placement. Let her know that [facility] would accept patient if he continues 5 week course of antibiotics and wound vac. After this, is unknown. She stated that what ever facility he is accepted to, she would work with at the care facility in placing him back to facility. In this case, would be [facility]. She did give the name of two facilities in [place]. One is [facility], and the other [facility]. The [facility] phone number is: [phone]. Fax number is: [phone]. There is another facility called [facility], their number is: [phone]. Called [facility] and left message. Called [facility], and they do not take [place]. Called [facility] in [place]. Was able to get in contact with Page in admissions. Confirmed that they do take [place]. Gave her brief description of patient. Encouraged us to fax information over. Having Earnestine fax over face sheet, clinicals, prog notes, and operative report. Called [facility] in [place] as well. Spoke to Brandin. Gave him brief description of patient. Faxed over clinicals. Stated that they also take [place]. P: DCP to continue to try to find placement for patient. Will follow up with [facility] and [facility]. Sylwia Mahmood RN/Hydraulic Billet Maker
--- NOTE | 2018-06-21 14:37 | PM.PN.1 ---
Subjective Date Patient Seen: 06/21/18 Time Patient Seen: 08:15 Interval history: No complaints. Would like to stay in the hospital for the duration of IV antibiotics because everyone is so nice! Exam Vital Signs (past 8 hours): - 06/21/18 07:52 06/21/18 08:28 06/21/18 11:43 Temperature 97.7 F 97.8 F Pulse Rate 76 71 Respiratory Rate 16 16 Blood Pressure 127/78 120/75 Pulse Oximetry 96 99 97 Fraction of Inspired Oxygen 21 Oxygen Delivery Method Room Air Oxygen Flow Rate 0 Narrative Exam Narrative: General: Polite and pleasant older man, poor hygiene, resting comfortably in bed. HEENT: NCAT, EOMI, edentulous CV: Regular rate and rhythm, no murmurs, rubs or gallops Lungs: CTAB, no wheezes, rales, or rhonchi Extremities: Wound VAC in place. No lower extremity edema. Objective Labs Result Diagrams: 06/15/18 08:30 06/15/18 08:30 Assessment & Plan Assessment & Plan narrative: Diabetic foot ulcer with osteomyelitis - appreciate wound vac management per orthopedics - needs another 4 weeks of IV antibiotcs per infectious disease Diabetes - blood sugars significantly improved - continue lantus, diabetic diet Tobacco use - doing well with nicotine patches Dispo: Patient is medical ready to discharge to skill nursing. Appreciate the great efforts of care management to facilitate a safe discharge plan. Quality VTE Deep Vein Thrombosis/Pulmonary Embolism Present on Admission: No
--- NOTE | 2018-06-21 15:56 | CM.DPC ---
DCP Cont: Called [facility] again, and spoke to Erika in admissions. She stated that they do not have a male bed now, due to the Norovirus, but may at the end of the week. She stated that if a bed comes available, they should be able to take him without an onsite visit. She mentioned that the area that he would need to be in is especially for his type of wounds, but since the Norovirus, its not available. She stated that by the end of the week, they may have male bed available. Gave her this residential case manager's phone number to call if a bed comes up sooner. Will update patient when bed is available. Have not yet called back [facility], since faxing over notes. Will call them and follow up tomorrow. P: DCP to continue to find placement. [facility] in [place] may be a strong possibility as soon as a male bed comes up. Will still continue to look for alternate placement. Sylwia Mahmood RN/Cattle Sticker
--- NOTE | 2018-06-21 17:27 | PM.CHAP ---
Chaplains are working to get a sweatshirt and sweatpants for Pt. Please contact if there are any other needs. Jmaes West [phone]
[2018-06-21] MEDS: INSULIN GLARGINE 100 UNIT/ML 3ML PEN 32 UNIT SUBCUT (23:20)
[2018-06-22] VITALS (9 sets, daily range): BP systolic 110–152; BP diastolic 62–95; PULSE 74–101; RESP 16–22; TEMP 36.4–36.8; O2SAT 95–98
[2018-06-22] MEDS: SODIUM CHLORIDE 0.9% FLUSH 10 ML IV ×3 (01:59→17:36)
[2018-06-22] MEDS: CEFAZOLIN 2 GM/100 ML FROZ.PIGGY IV ×3 (01:59→17:33)
[2018-06-22] MEDS: VANCOMYCIN 1,500 MG in SODIUM CHLORIDE 0.9% 500 ML 333 ML IV (02:47)
[2018-06-22 06:21] LABS: Add Manual Diff / Slide Review NO; Basophils Absolute Auto 100 /uL (0-100); Basophils Percent Auto 1.3 % (0-2); Eosinophils Absolute Auto 300 /uL (0-450); Eosinophils Percent Auto 3.6 % (2-4); Hematocrit 42.1 % (41-53); Hemoglobin 14.4 g/dL (13.5-17.5); Lymphocytes Absolute Auto 2200 /uL (1100-4500); Lymphocytes Percent Auto 24.8 % (25-40); Mean Corpuscular HGB Conc 34.3 % (30-36); Mean Corpuscular Hemoglobin 29.8 PG (26-34); Mean Corpuscular Volume 86.9 fL (80-100); Monocytes Absolute Auto 800 /uL (0-900); Monocytes Percent Auto 8.6 % (3-14); Neutrophils Absolute Auto 5600 /uL (1500-7000); Neutrophils Percent Auto 61.7 % (50-75); Platelet Count 362 X10^3/uL (150-400); Red Blood Cell Count 4.84 X10^6/uL (4.5-5.9); Red Cell Distribution Width 14.8 % (11.6-14.8)
[2018-06-22 06:53] LABS: Blood Urea Nitrogen 20 mg/dL (9-20); C-Reactive Protein Quant 0.8 mg/dL (<1.0); Calcium 9.2 mg/dL (8.4-10.2); Carbon Dioxide 28 mmol/L (22-32); Chloride 103 mmol/L (98-107); Estimated Glomerular Filt Rate > 60.0 mL/min (>60); Glucose 117 mg/dL (70-100); HEMOLYSIS < 15 (0-50); Potassium 4.4 mmol/L (3.4-5.1); Sodium 140 mmol/L (137-145)
[2018-06-22 07:13] LABS: Erythrocyte Sedimentation Rate 42 MM/HR (0-15)
[2018-06-22] MEDS: METFORMIN HCL 500 MG TABLET 1000 MG PO ×2 (08:17→16:57)
[2018-06-22] MEDS: ENOXAPARIN 40 MG/0.4 ML SYRINGE SUBCUT (08:18)
[2018-06-22] MEDS: INSULIN GLARGINE 100 UNIT/ML 3ML PEN 30 UNIT SUBCUT (08:18)
[2018-06-22] MEDS: NICOTINE 7 MG PATCH TOP (08:20)
[2018-06-22] MEDS: ACETAMINOPHEN 325 MG TABLET PO (08:20)
--- NOTE | 2018-06-22 08:59 | PM.PN.1 ---
Subjective Date Patient Seen: 06/22/18 Time Patient Seen: 08:45 Interval history: No overnight events. Patient feels quite well though he has noticed some pain in his foot which is new. He previously had no sensation in his foot. Prefers to use Tylenol for pain. Exam Vital Signs (past 8 hours): - 06/22/18 02:09 06/22/18 02:45 06/22/18 06:00 Temperature 98.0 F 97.9 F Pulse Rate 74 86 Respiratory Rate 22 16 Blood Pressure 116/70 152/62 H Pulse Oximetry 95 95 95 06/22/18 08:00 Temperature 97.6 F Pulse Rate 85 Respiratory Rate 16 Blood Pressure 110/66 Pulse Oximetry 95 Fraction of Inspired Oxygen 21 Oxygen Delivery Method Room Air Oxygen Flow Rate 0 Narrative Exam Narrative: General: Older man with poor hygiene resting comfortably in bed. Very talkative today. Extremities: Wound VAC in place and draining on left foot. No lower extremity edema. Objective Labs Result Diagrams: 06/22/18 06:08 06/22/18 06:08 Labs: Laboratory Results - last 24 hr 06/22/18 06/22/18 06:08 06:08 WBC 9.0 RBC 4.84 Hgb 14.4 Hct 42.1 MCV 86.9 MCH 29.8 MCHC 34.3 RDW 14.8 Plt Count 362 Neut % (Auto) 61.7 Lymph % (Auto) 24.8 L [place] % (Auto) 8.6 Eos % (Auto) 3.6 Baso % (Auto) 1.3 Neut # (Auto) 5600 Lymph # (Auto) 2200 [place] # (Auto) 800 Eos # (Auto) 300 Baso # (Auto) 100 ESR 42 H Sodium 140 Potassium 4.4 Chloride 103 Carbon Dioxide 28 BUN 20 Creatinine 0.80 Estimated GFR > 60.0 BUN/Creatinine Ratio 25.0 H Glucose 117 H Calcium 9.2 C-Reactive Protein 0.8 Assessment & Plan Assessment & Plan narrative: No changes to present management. Appreciate Orthopedics changing his wound VAC. He is now 2 weeks in to 6 weeks of antibiotics. Blood sugars well controlled. Patient is medically stable for discharge when an accepting residential facility can be found. Appreciate the ongoing efforts of the care management team. Patient has been quite cooperative and pleasant as of late. Quality VTE Deep Vein Thrombosis/Pulmonary Embolism Present on Admission: No
--- NOTE | 2018-06-22 09:32 | P.PN_ITS ---
Subjective Date Patient Seen: 06/22/18 Time Patient Seen: 09:32 Interval history: Hospital day 15, postop day 8 following left foot ulcer I and D and partial cuneiform exostectomy. Patient remained stable. he did have his wound VAC changed on 06/19/2018. Patient is awaiting acceptance at [facility] for ongoing care. continues on IV antibiotics. He is being followed by primary care. Exam Vital Signs (past 8 hours): - 06/22/18 02:09 06/22/18 02:45 06/22/18 06:00 Temperature 98.0 F 97.9 F Pulse Rate 74 86 Respiratory Rate 22 16 Blood Pressure 116/70 152/62 H Pulse Oximetry 95 95 95 06/22/18 08:00 06/22/18 09:17 Temperature 97.6 F Pulse Rate 85 Respiratory Rate 16 Blood Pressure 110/66 Pulse Oximetry 95 96 Fraction of Inspired Oxygen 21 Oxygen Delivery Method Room Air Oxygen Flow Rate 0 Narrative Exam Narrative: Alert, oriented no acute distress resting in bed. left foot. good color and blanching. Vac dressing was removed. the small wound to the plantar aspect of foot approximately 1 cm in diameter and 0.5 cm deep. no drainage or inflammation. The larger wound on the medial aspect of foot and notes good granulation. No purulence or drainage noted. wound VAC replaced with good seal. Objective Labs Result Diagrams: 06/22/18 06:08 06/22/18 06:08 Labs: Laboratory Results - last 24 hr 06/22/18 06/22/18 06:08 06:08 WBC 9.0 RBC 4.84 Hgb 14.4 Hct 42.1 MCV 86.9 MCH 29.8 MCHC 34.3 RDW 14.8 Plt Count 362 Neut % (Auto) 61.7 Lymph % (Auto) 24.8 L Glades % (Auto) 8.6 Eos % (Auto) 3.6 Baso % (Auto) 1.3 Neut # (Auto) 5600 Lymph # (Auto) 2200 Glades # (Auto) 800 Eos # (Auto) 300 Baso # (Auto) 100 ESR 42 H Sodium 140 Potassium 4.4 Chloride 103 Carbon Dioxide 28 BUN 20 Creatinine 0.80 Estimated GFR > 60.0 BUN/Creatinine Ratio 25.0 H Glucose 117 H Calcium 9.2 C-Reactive Protein 0.8 Assessment & Plan Post-op Postoperative Procedures Operation Date: 06/11/18 14:15 Actual Procedures Side Surgeon p I&D Foot diabetic ulcer/Infection, bone biopsy Left Radha Mendosa MD Plan: Patient will remain on IV antibiotics. Awaiting transfer to SNF. He will need wound VAC changed in 3 days on 06/25/2018. Quality VTE Deep Vein Thrombosis/Pulmonary Embolism Present on Admission: No
[2018-06-22] MEDS: VANCOMYCIN TROUGH 1 REQUEST MISC (10:11)
--- NOTE | 2018-06-22 10:20 | CM.DPC ---
DCP cONT: Spoke to Earnestine, us administrative law judge here in care management. She stated that Page in admissions at [facility] in [place] stated that they could not accept patient, and she stated to have this casey saw operator call and find out why. At this time, had updated Dr. Morales, for this was a hopeful admit. Called and spoke to Erika at [facility]. Stated, they could not accept him now because of the Norovirus, but may still accept him. This is what she had said yesterday. She is thinking that this could potentially happen at the end of the week, but this depends on the virus. She stated that the diaz that he would be in has been affected by this virus, and that they do have some male beds available. Asked her if she could hold a bed, she was not concerned that they would run out of male beds, but could try to hold a bed. She also stated that she could try to get a private room for the patient as well. She stated that she would need to check with the business office. Left a message, update, at [facility] for Dr. Morales, that this is a stong possibility that patient could go there once the virus is cleared up. Have not yet updated patient, for this is not yet 100% certain. Briefly spoke to patient this morning, was in good spirits eating his breakfast. He still has about 4 weeks left of antibiotics, IV, which is needed to clear up his infection. This casey saw operator also called [facility] to follow up on acceptance, and they declined due to his behaviors. P: DCP to continue to follow and look for placement. Follow up with Erika at [facility] at the end of the week. Her phone number is: [phone]. Sylwia Mahmood RN/Powerhouse Helper
[2018-06-22 11:32] LABS: Vancomycin Trough 21.2 ug/mL (10-20)
[2018-06-22] MEDS: VANCOMYCIN 1,250 MG in SODIUM CHLORIDE 0.9% 250 ML IV (16:16)
--- NOTE | 2018-06-22 16:23 | PC.NURSE ---
Staff emergency alarming for room 216, when I went to door I saw the Physical Therapist canceling the alarm. I asked if there was a problem, she said that patient pushed staff assist button with the end of his cane. When I asked patient what he needed, he yelled loudly yah I was calling for my antibiotic! I was supposed to get it at 4 o'clock! I apologized & said that I would be back but was helping another patient at this time. Patient agitated, continued to yell at this nurse. I did not attempt to converse with patient any further & called security who did not talk to this nurse and then left the unit after speaking to fermenting cellars supervisor. I asked charge preparation technician Kim to be relieved of taking care of this patient as he can clearly be abusive to staff. Report handed off to Harinder ANDREA.
[2018-06-22] MEDS: INSULIN ASPART 100 UNIT/ML INSULN PEN SUBCUT (16:57)
[2018-06-22] MEDS: LORazepam 0.5 MG TABLET PO (20:09)
[2018-06-22] MEDS: INSULIN GLARGINE 100 UNIT/ML 3ML PEN 32 UNIT SUBCUT (20:09)
[2018-06-23] VITALS (9 sets, daily range): BP systolic 102–134; BP diastolic 60–98; PULSE 70–83; RESP 16–20; TEMP 36.4–36.8; O2SAT 94–97
[2018-06-23] MEDS: VANCOMYCIN 1,250 MG in SODIUM CHLORIDE 0.9% 250 ML IV ×3 (00:14→17:07)
[2018-06-23] MEDS: LORazepam 0.5 MG TABLET PO ×2 (02:20→19:06)
[2018-06-23] MEDS: CEFAZOLIN 2 GM/100 ML FROZ.PIGGY IV ×3 (02:20→18:44)
[2018-06-23] MEDS: METFORMIN HCL 500 MG TABLET 1000 MG PO ×2 (08:16→16:56)
[2018-06-23] MEDS: ENOXAPARIN 40 MG/0.4 ML SYRINGE SUBCUT (08:16)
[2018-06-23] MEDS: NICOTINE 7 MG PATCH TOP (08:16)
[2018-06-23] MEDS: INSULIN GLARGINE 100 UNIT/ML 3ML PEN 30 UNIT SUBCUT (08:19)
--- NOTE | 2018-06-23 08:52 | PM.PNPO.1 ---
Subjective Date Patient Seen: 06/23/18 Time Patient Seen: 08:52 Interval history: Hospital day 16, postop day 9 following left foot ulcer I&D and partial cuneiform exostectomy. Patient remained stable. did change is wound VAC yesterday but he apparently has a leak and not working well. nurse does plan to change the VAC today. Exam Vital Signs (past 8 hours): - 06/23/18 02:00 06/23/18 06:30 06/23/18 08:00 Temperature 97.8 F 98.3 F 97.5 F L Pulse Rate 72 83 76 Respiratory Rate 19 18 16 Blood Pressure 102/60 117/72 114/73 Pulse Oximetry 94 95 95 Fraction of Inspired Oxygen 21 Oxygen Delivery Method Room Air Oxygen Flow Rate 0 Narrative Exam Narrative: Alert and responsive sitting on the edge of bed. left foot dressing in place. good color to foot. wound VAC has lost its VAC. Objective Labs Result Diagrams: 06/22/18 06:08 06/22/18 06:08 Labs: Laboratory Results - last 24 hr 06/22/18 09:45 Vancomycin Trough 21.2 H* Assessment & Plan Post-op Postoperative Procedures Operation Date: 06/11/18 14:15 Actual Procedures Side Surgeon p I&D Foot diabetic ulcer/Infection, bone biopsy Left Radha Mendosa MD Plan: Wound VAC will be replaced today. patient awaiting placement at [facility] possibly in [place]. Quality VTE Deep Vein Thrombosis/Pulmonary Embolism Present on Admission: No
[2018-06-23] MEDS: SODIUM CHLORIDE 0.9% FLUSH 10 ML IV ×2 (10:37→18:44)
--- NOTE | 2018-06-23 13:00 | PC.NURSE ---
Addendum entered by Brielle Howard R.N. 06/23/18 13:42: Pt all of a sudden upset, will not express reason's why. This RN was going to put a dressing to his heel with vaseline and some gauze and we had communicated with each other, but he is too upset now to do this dressing. Pt states that he needs some rest. Bedding changed and wound vac dressing wnl, small area of ulcer is exposed but sponged is mostly in place. Pt denies any pain to area, he does not have feeling to his feet as he has neuropathy. Original Note: 1140- Pts wound vac dressing completely changed as there was a leak in old dressing. Pts foot ulcer has new granulation tissue starting, area has some bloody drainage, He also has a smaller open ulcer to the left side of the bigger wound, we are bridging the foam as this also helps compress foam over area and get rid of drainage to canister. Drainage color has mostly been bloody. Pt tolerated well and his bs have been 108, and 115. He is in good spirits and talking to everybody. Both IV antibiotics infused and pts picc line patent.
--- NOTE | 2018-06-23 13:26 | PM.PN.1 ---
Subjective Date Patient Seen: 06/23/18 Time Patient Seen: 08:00 Interval history: No complaints this morning. He continues to be very appreciative of his care. Exam Vital Signs (past 8 hours): - 06/23/18 06:30 06/23/18 08:00 06/23/18 11:35 Temperature 98.3 F 97.5 F L Pulse Rate 83 76 Respiratory Rate 18 16 Blood Pressure 117/72 114/73 Pulse Oximetry 95 95 97 06/23/18 12:00 Temperature 98.1 F Pulse Rate 81 Respiratory Rate 17 Blood Pressure 134/98 H Pulse Oximetry 94 Fraction of Inspired Oxygen 21 Oxygen Delivery Method Room Air Oxygen Flow Rate 0 Narrative Exam Narrative: General: Disheveled older man. Polite and pleasant, very conversational. HEENT: NCAT, EOMI, moist oral mucosa, edentulous CV: Regular rate and rhythm, no murmurs, rubs or gallops Lungs: CTAB, no wheezes, rales, or rhonchi Extremities: Wound VAC in place though not draining. No lower extremity edema. Objective Labs Result Diagrams: 06/22/18 06:08 06/22/18 06:08 Assessment & Plan Assessment & Plan narrative: 58-year-old man with poorly controlled diabetes and left diabetic foot ulcer with osteomyelitis. Now 2 weeks in to 6 weeks of IV antibiotics per Infectious Disease. Appreciate Orthopedic surgery management of wound VAC. Plan remains unchanged. Blood sugars are well controlled. Awaiting placement when a chcf facility is found that accepts patient. He has been quite polite and appropriate. Quality VTE Deep Vein Thrombosis/Pulmonary Embolism Present on Admission: No
--- NOTE | 2018-06-23 15:12 | CM.DPC ---
Addendum entered by Buffy Pickard LPN 06/24/18 10:51: [place] from [facility] this morning that [facility] would continue to pay [facility] a daily rate through 06/27 with a d/c or update needed 06/28. Original Note: DCP: continued: Case received again, EMR reviewed for the last few days and spoke with colleague/DC Tinsel Machine Operator Maty who has been working this case for the last 2 days. Was updated on the pending acceptance of pt to Kirill at [facility] and have followed up on this now with [place]/Admissions: [phone]/main line. She admits that the line is sometimes not answered on the weekends. Kenya works Thu - Thursday but carries admission cell 06/10 at [phone]. Discussed case: Kenya reports that they have accepted pt for admission: cannot however take him until cleared of NoroVirus. She expects this may be by Thursday. Discussed [facility]. She notes she typically is able to get [facility] approval including carve-outs within 24 hours and has a great deal of experience working with them. She confirms she is the only admission person for the building. As acceptance of pt is firm at this time have updated pt as think he will do well with time get used to the spefic plan. Pt expressed thankfulness for the update. Said he will miss being here at as everyone is so nice and friendly. Agreed to stop in tomorrow morning and give him more specifics on the facility. P: [facility]ill at [facility] when facility cleared of Norovirus and [facility] auth in place: Likely this Thursday or next Thursday....will follow closely and will update providers tomorrow.
[2018-06-23 16:27] LABS: Vancomycin Trough 15.5 ug/mL (10-20)
[2018-06-23] MEDS: INSULIN ASPART 100 UNIT/ML INSULN PEN SUBCUT (16:56)
[2018-06-23] MEDS: VANCOMYCIN TROUGH 1 REQUEST MISC (17:20)
[2018-06-23] MEDS: INSULIN GLARGINE 100 UNIT/ML 3ML PEN 32 UNIT SUBCUT (21:05)
[2018-06-24] VITALS (10 sets, daily range): BP systolic 100–147; BP diastolic 62–95; PULSE 82–135; RESP 16–19; TEMP 36.3–36.8; O2SAT 93–97
[2018-06-24] MEDS: VANCOMYCIN 1,250 MG in SODIUM CHLORIDE 0.9% 250 ML IV ×3 (00:06→16:33)
[2018-06-24] MEDS: CEFAZOLIN 2 GM/100 ML FROZ.PIGGY IV ×3 (02:09→18:59)
[2018-06-24] MEDS: LORazepam 0.5 MG TABLET PO ×2 (02:09→18:59)
[2018-06-24] MEDS: NICOTINE 7 MG PATCH TOP (08:26)
[2018-06-24] MEDS: ENOXAPARIN 40 MG/0.4 ML SYRINGE SUBCUT (08:26)
[2018-06-24] MEDS: METFORMIN HCL 500 MG TABLET 1000 MG PO ×2 (08:26→16:34)
[2018-06-24] MEDS: INSULIN ASPART 100 UNIT/ML INSULN PEN SUBCUT ×3 (08:28→16:53)
[2018-06-24] MEDS: INSULIN GLARGINE 100 UNIT/ML 3ML PEN 30 UNIT SUBCUT (08:29)
--- NOTE | 2018-06-24 08:38 | PM.PN.1 ---
Subjective Date Patient Seen: 06/24/18 Time Patient Seen: 07:29 Interval history: No complaints or overnight events. Patient was sleeping this morning and answered questions appropriately upon waking. Exam Vital Signs (past 8 hours): - 06/24/18 02:00 06/24/18 02:17 06/24/18 06:21 Temperature 98.2 F 98.0 F Pulse Rate 82 89 Respiratory Rate 18 19 Blood Pressure 100/62 111/71 Pulse Oximetry 96 93 95 06/24/18 08:00 Temperature 97.7 F Pulse Rate 92 H Respiratory Rate 16 Blood Pressure 147/87 H Pulse Oximetry 95 Fraction of Inspired Oxygen 21 Oxygen Delivery Method Room Air Oxygen Flow Rate 0 Narrative Exam Narrative: General: Well-appearing though disheveled, appears older than stated age sleeping comfortably in bed. Wakes and answers questions. Extremities: Wound VAC in place and functioning. Objective Labs Result Diagrams: 06/22/18 06:08 06/22/18 06:08 Labs: Laboratory Results - last 24 hr 06/23/18 15:54 Vancomycin Trough 15.5 Assessment & Plan Assessment & Plan narrative: No changes to present management. Wound VAC is functioning properly. Blood sugars well controlled. Medically ready for discharge. Specific follow-up instructions in past progress notes. Awaiting placement. Quality VTE Deep Vein Thrombosis/Pulmonary Embolism Present on Admission: No
[2018-06-24] MEDS: SODIUM CHLORIDE 0.9% FLUSH 10 ML IV (10:03)
--- NOTE | 2018-06-24 10:13 | PM.PNPO.1 ---
Subjective Date Patient Seen: 06/24/18 Time Patient Seen: 10:13 Interval history: Hospital day 17, postop day 10 following left foot diabetic ulcer debridement and partial cuneiform exostectomy. Patient remained stable. He does have wound VAC to left foot which was changed yesterday by nurse. Patient is awaiting discharge to [facility] in [place]. They apparently have a norovirus problem and are awaiting this to clear before admitting patient. Exam Vital Signs (past 8 hours): - 06/24/18 02:17 06/24/18 06:21 06/24/18 08:00 Temperature 98.0 F 97.7 F Pulse Rate 89 92 H Respiratory Rate 19 16 Blood Pressure 111/71 147/87 H Pulse Oximetry 93 95 95 Fraction of Inspired Oxygen 21 Oxygen Delivery Method Room Air Oxygen Flow Rate 0 Narrative Exam Narrative: Alert, active in no acute distress. left foot. wound VAC in place. do not see any signs of infection or inflammation. Objective Labs Result Diagrams: 06/22/18 06:08 06/22/18 06:08 Labs: Laboratory Results - last 24 hr 06/23/18 15:54 Vancomycin Trough 15.5 Assessment & Plan Post-op Postoperative Procedures Operation Date: 06/11/18 14:15 Actual Procedures Side Surgeon p I&D Foot diabetic ulcer/Infection, bone biopsy Left Radha Mendosa MD Plan: I did talk with Dr. Mendosa this morning and she plans to come overt later today and do a wound VAC change and evaluate his wounds on his foot before his discharge to care facility. She states he will probably have the wound VAC in place for about 2 months until healed. Quality VTE Deep Vein Thrombosis/Pulmonary Embolism Present on Admission: No
--- NOTE | 2018-06-24 10:16 | P.PN_ITS ---
Subjective Date Patient Seen: 06/24/18 Time Patient Seen: 10:13 Interval history: Hospital day 17, postop day 10 following left foot diabetic ulcer debridement and partial cuneiform exostectomy. Patient remained stable. He does have wound VAC to left foot which was changed yesterday by nurse. Patient is awaiting discharge to [facility] in [place]. They apparently have a norovirus problem and are awaiting this to clear before admitting patient. Exam Vital Signs (past 8 hours): - 06/24/18 02:17 06/24/18 06:21 06/24/18 08:00 Temperature 98.0 F 97.7 F Pulse Rate 89 92 H Respiratory Rate 19 16 Blood Pressure 111/71 147/87 H Pulse Oximetry 93 95 95 Fraction of Inspired Oxygen 21 Oxygen Delivery Method Room Air Oxygen Flow Rate 0 Narrative Exam Narrative: Alert, active in no acute distress. left foot. wound VAC in place. do not see any signs of infection or inflammation. Objective Labs Result Diagrams: 06/22/18 06:08 06/22/18 06:08 Labs: Laboratory Results - last 24 hr 06/23/18 15:54 Vancomycin Trough 15.5 Assessment & Plan Post-op Postoperative Procedures Operation Date: 06/11/18 14:15 Actual Procedures Side Surgeon p I&D Foot diabetic ulcer/Infection, bone biopsy Left Radha Mendosa MD Plan: I did talk with Dr. Mendosa this morning and she plans to come overt lat er today and do a wound VAC change and evaluate his wounds on his foot before his discharge to care facility. She states he will probably have the wound VAC in place for about 2 months until healed. Quality VTE Deep Vein Thrombosis/Pulmonary Embolism Present on Admission: No
[2018-06-24] MEDS: NYSTATIN POWDER 30 GM 1 APPLIC TOP (14:21)
--- NOTE | 2018-06-24 14:53 | PC.NURSE ---
Dressing to foot ulcer cdi with wound vac dressing in place, suction is 125mm. Pt pleasant all day.
--- NOTE | 2018-06-24 21:03 | PC.NURSE ---
Pt agitated, swearing and yelling at nurse. Refused CBG as well as insulins and saline flush.
--- NOTE | 2018-06-24 21:17 | PC.NURSE ---
Evening Shift Note Pt extremely agitated w/ this RN. This RN expressed to pt that PICC would be saline locked in a few minutes. RN unable to do so do to change of pt condition in another room and this RN at their bedside. Pt became extremely frustrated and this RN able to hear pt from another pt room. This RN able to run to pt room to saline lock PICC when float RN available. Pt expressing frustration to RN, RN apologized and expressed that another pt was sick and needed this RNs attention immediately. Pt continued to raise voice and swearing expressing frustration. RN silent, saline locked PICC and walked out of pt room. Pt continued to yell out of room. BENNY Rodriguez attempted to talk to pt and take vitals and CBG. Pt continued to yell and refuse care, NAMED ACCOUNT EXECUTIVE walked out of room. Float RN in pt room after 30minutes to help and attempt to take CBG, vitals and bedtime insulin. Pt also refused care from this RN. Pt left alone by this RN. Will continue to monitor.
[2018-06-25] VITALS (9 sets, daily range): BP systolic 112–129; BP diastolic 55–96; PULSE 66–95; RESP 16–20; TEMP 36.6–37; O2SAT 92–96
[2018-06-25] MEDS: VANCOMYCIN 1,250 MG in SODIUM CHLORIDE 0.9% 250 ML IV ×4 (00:28→23:32)
[2018-06-25] MEDS: SODIUM CHLORIDE 0.9% 250 ML 21 ML IV (00:30)
[2018-06-25] MEDS: LORazepam 0.5 MG TABLET PO ×2 (00:31→23:32)
[2018-06-25] MEDS: INSULIN GLARGINE 100 UNIT/ML 3ML PEN 32 UNIT SUBCUT ×2 (00:33→20:49)
[2018-06-25] MEDS: CEFAZOLIN 2 GM/100 ML FROZ.PIGGY IV ×3 (02:11→18:41)
--- NOTE | 2018-06-25 03:48 | PC.NURSE ---
Pt. refused BG check for lilly shift at 2100 and Lantus. Lantus given at 0033 per pt. request. BG check at 0200 was 134. Pt dressing is clean dry and intact. Wound Vac is running at 125mmhg with sanguineous fluid drainage. Lung sounds clear bilaterally. CMS intact, pedal pulses postive and strong. Left foot 1+ edema. Denies pain, was pleasant for this shift. D/C today or Thursday to facility in [place]
[2018-06-25] MEDS: ENOXAPARIN 40 MG/0.4 ML SYRINGE SUBCUT (07:59)
[2018-06-25] MEDS: NICOTINE 7 MG PATCH TOP (07:59)
[2018-06-25] MEDS: METFORMIN HCL 500 MG TABLET 1000 MG PO ×2 (07:59→16:55)
[2018-06-25] MEDS: INSULIN ASPART 100 UNIT/ML INSULN PEN SUBCUT ×3 (08:01→20:49)
[2018-06-25] MEDS: INSULIN GLARGINE 100 UNIT/ML 3ML PEN 30 UNIT SUBCUT (08:02)
--- NOTE | 2018-06-25 08:37 | PM.PNPO.1 ---
Subjective Date Patient Seen: 06/25/18 Time Patient Seen: 08:37 Interval history: Hospital day 18, postop day 11 following left foot diabetic ulcer debridement and partial cuneiform exostectomy. Patient remained stable. Patient is awaiting discharge to [facility] in [place]. They apparently have a norovirus problem and are awaiting this to clear before admitting patient. Wound Vac changed yesterday by Dr. Mendosa with bedside debridement. Exam Vital Signs (past 8 hours): - 06/25/18 01:02 06/25/18 02:00 06/25/18 06:23 Temperature 98.0 F 97.9 F Pulse Rate 83 66 Respiratory Rate 20 18 Blood Pressure 122/74 116/55 L Pulse Oximetry 94 92 96 06/25/18 08:00 Temperature 98.1 F Pulse Rate 72 Respiratory Rate 16 Blood Pressure 129/92 H Pulse Oximetry 94 Fraction of Inspired Oxygen 21 Oxygen Delivery Method Room Air Oxygen Flow Rate 0 Narrative Exam Narrative: Patient lying in bed in NAD. He is alert and oriented X3. Wound Vac Dressing on left foot is functioning. No changes in sensation. Objective Labs Result Diagrams: 06/22/18 06:08 06/22/18 06:08 Assessment & Plan Post-op Postoperative Procedures Operation Date: 06/11/18 14:15 Actual Procedures Side Surgeon p I&D Foot diabetic ulcer/Infection, bone biopsy Left Radha Mendosa MD Continue wound vac dressing changes every 3 days. Once patient is DCd plans to have wound care take over wound vac management. Plan to DC per hospitalist team. Quality VTE Deep Vein Thrombosis/Pulmonary Embolism Present on Admission: No
[2018-06-25 09:02] LABS: Vancomycin Trough 17.5 ug/mL (10-20)
[2018-06-25] MEDS: SODIUM CHLORIDE 0.9% FLUSH 10 ML IV ×2 (10:01→20:49)
[2018-06-25] MEDS: VANCOMYCIN TROUGH 1 REQUEST MISC (10:01)
--- NOTE | 2018-06-25 10:17 | CM.DPC ---
DCP: continued: Spoke this morning with Dr. Morales re progress of this case. She does express concern re follow up vac as pt will not be in a local snf but also acknowledges that pt does not need hospital care and the wound care process will be managed at the snf level. She was aware that d/c may be today or Thursday pending [facility] situation. Called [facility] as per plan and spoke with admissions/[place]: She reports that the facility expected to be clear of Norovirum today but a new case was found last evening and thus she cannot admit until Thursday (as long as no other cases arise). [facility] auth for stay will be needed/refer to prior DCP notes for details. [place] does not consider that this will take more than a day to obtain. DCP team will continue to follow.
--- NOTE | 2018-06-25 10:35 | PM.PN.1 ---
Subjective Date Patient Seen: 06/25/18 Time Patient Seen: 08:00 Interval history: Patient states he is doing well this morning. He does have a bit of a headache but has not taken anything for it yet. He is wondering if he will discharged today. Exam Vital Signs (past 8 hours): - 06/25/18 06:23 06/25/18 08:00 Temperature 97.9 F 98.1 F Pulse Rate 66 72 Respiratory Rate 18 16 Blood Pressure 116/55 L 129/92 H Pulse Oximetry 96 94 Fraction of Inspired Oxygen 21 Oxygen Delivery Method Room Air Oxygen Flow Rate 0 Narrative Exam Narrative: General: Older man with poor hygiene. Polite and pleasant. Awake and alert, no acute distress. HEENT: NCAT, EOMI, moist oral mucosa CV: Regular rate and rhythm, no murmurs, rubs or gallops Lungs: CTAB, no wheezes, rales, or rhonchi Extremities: Warm, no edema, wound VAC in place on left lower extremity Objective Labs Result Diagrams: 06/22/18 06:08 06/22/18 06:08 Labs: Laboratory Results - last 24 hr 06/25/18 07:32 Vancomycin Trough 17.5 Assessment & Plan Assessment & Plan narrative: Diabetic foot ulcer with osteomyelitis - appreciate wound vac management per orthopedics, will need to transition to wound care once he discharges to SNF - needs another 3+ weeks of IV antibiotcs per infectious disease, will need to follow up with infectious disease as an outpatient - will check CBC, CMP, ESR and CRP on 06/28/18 in preparation for discharge Diabetes - blood sugars reasonably well controlled - continue lantus, diabetic diet Tobacco use - doing well with nicotine patches Dispo: Patient is medical ready to discharge to [facility] nursing. Anticipate discharge to [facility] in [place] on Thursday06/28/18. Quality VTE Deep Vein Thrombosis/Pulmonary Embolism Present on Admission: No
[2018-06-26] VITALS (7 sets, daily range): BP systolic 99–153; BP diastolic 54–85; PULSE 76–97; RESP 19–27; TEMP 36.2–37.1; O2SAT 95–98
--- NOTE | 2018-06-26 00:01 | PC.NURSE ---
2300- Pt awake and sitting @ edge of bed. Denies any pain or discomfort, states he would like meds for anxiety. L foot covered w/ dressing CDI; wound vac set to 125 cont; pulses palpable; CMS intact. Edema noted bilaterally. Pt on RA w/ VSS. 2350- IV Vanco hung as ordered; L upper arm PICC patent w/ good blood return noted. Pt states he does not want to be woken up for BG in the night; aware that this RN needs to disconnect IV after abx complete however. 0300- All IV abx completed. PICC line flushed, pt denies any needs.
[2018-06-26] MEDS: CEFAZOLIN 2 GM/100 ML FROZ.PIGGY IV ×3 (01:29→18:17)
[2018-06-26] MEDS: NICOTINE 7 MG PATCH TOP (07:29)
[2018-06-26] MEDS: ENOXAPARIN 40 MG/0.4 ML SYRINGE SUBCUT (07:29)
[2018-06-26] MEDS: METFORMIN HCL 500 MG TABLET 1000 MG PO ×2 (07:29→16:40)
[2018-06-26] MEDS: INSULIN GLARGINE 100 UNIT/ML 3ML PEN 30 UNIT SUBCUT (07:34)
[2018-06-26] MEDS: SODIUM CHLORIDE 0.9% FLUSH 10 ML IV ×2 (07:35→20:59)
--- NOTE | 2018-06-26 07:54 | PM.PN.1 ---
Subjective Date Patient Seen: 06/26/18 Time Patient Seen: 07:55 Interval history: Awaiting bed placement due to an outbreak of norovirus at the accepting facility.. Patient did well overnight sitting at the bedside eating breakfast has a wound VAC on his left leg. No complaints of pain. patient's PICC line is no longer functioning. Flushing. Will have the nurse tried to do a peripheral IV start to get antibiotics until we get another PICC line placed in him. Blood sugars are still high. Exam Vital Signs (past 8 hours): - 06/26/18 01:34 06/26/18 07:44 Temperature 98.7 F 97.7 F Pulse Rate 86 85 Respiratory Rate 20 21 Blood Pressure 138/69 153/85 H Pulse Oximetry 98 96 Fraction of Inspired Oxygen 21 Oxygen Delivery Method Room Air Oxygen Flow Rate 0 Narrative Exam Narrative: Gen.: Alert good historian HEENT: Pupils equal round and reactive or mucosa is moist Cardio: S1-S2 regular rate and rhythm no murmurs appreciated. Respiratory: Lungs are clear to auscultation no wheezes or crackles normal respiratory effort. Abdomen: Soft nontender no rebound or guarding no liver spleen enlargement no appreciable hernias Extremities: Lower extremity foot wound VAC. Not significantly swollen. They are still red irritation Neurologic: Grossly intact. Objective Labs Result Diagrams: 06/22/18 06:08 06/22/18 06:08 Labs: Laboratory Results - last 24 hr 06/25/18 07:32 Vancomycin Trough 17.5 Assessment & Plan Assessment & Plan narrative: Diabetic foot ulcer with osteomyelitis Currently on vancomycin cephazolin PICC line fell today. Reinsert PICC CBC CMP sed rate CRP Thursday Diabetes Continue with insulin per protocol and monitor blood sugars Tobacco use Asking for patch this morning Dispo: Discharged to SNF when bed available Quality VTE Deep Vein Thrombosis/Pulmonary Embolism Present on Admission: No
--- NOTE | 2018-06-26 09:52 | PM.PNPO.1 ---
Subjective Date Patient Seen: 06/26/18 Time Patient Seen: 09:52 Interval history: Patient states he is doing well. No complaints this morning. Exam Vital Signs (past 8 hours): - 06/26/18 07:44 Temperature 97.7 F Pulse Rate 85 Respiratory Rate 21 Blood Pressure 153/85 H Pulse Oximetry 96 Fraction of Inspired Oxygen 21 Oxygen Delivery Method Room Air Oxygen Flow Rate 0 Narrative Exam Narrative: Wound VAC in place left foot. wound VAC is on and functioning. Objective Labs Result Diagrams: 06/22/18 06:08 06/22/18 06:08 Assessment & Plan Post-op Postoperative Procedures Operation Date: 06/11/18 14:15 Actual Procedures Side Surgeon p I&D Foot diabetic ulcer/Infection, bone biopsy Left Radha Mendosa MD Patient postop day 12 following left foot diabetic ulcer debridement and partial cuneiform exostectomy. Patient waiting for discharge to care facility in [place]. Wound VAC change tomorrow. Quality VTE Deep Vein Thrombosis/Pulmonary Embolism Present on Admission: No
[2018-06-26] MEDS: VANCOMYCIN 1,250 MG in SODIUM CHLORIDE 0.9% 250 ML IV ×2 (10:43→19:04)
--- NOTE | 2018-06-26 12:12 | CM.DPC ---
DCP Cont: Discussed patient at team rounds. Plan is to follow up with Kirill on Thursday, since [facility] authorization will be needed. Reji will also need an update by then. Patient was compliant with care. Was sitting up eating his breakfast this morning, and interacting with staff and nurse. Patient is to be getting a new PICC line placed to day, due to problems with current flushing the line. P: DCP to continue to follow closely. Will need to follow up with Kirill on Thursday to see if there are any further cases of Norovirus, and if they can then accept patient. Will also need to update provider as well. Sylwia Mahmood RN/Driveway Attendant
--- NOTE | 2018-06-26 13:37 | PC.NURSE ---
Pts Picc Line to R.upper arm compromised as a blood clot had formed at the end of the line. Precision Picc into put a new ML to Pts l.upper arm. He tolerated procedure well and iv antibiotics both infused. After Picc line taken out of pts r.upper arm the catheter was intact. Pt upset momentarily as iv not disconnected from his ML. Easily calmed and taking a nap. Pt seems to get worked up around mid afternoon. He is resting now after going to the bathroom.
[2018-06-26] MEDS: INSULIN ASPART 100 UNIT/ML INSULN PEN SUBCUT (16:40)
[2018-06-26] MEDS: SODIUM CHLORIDE 0.9% 250 ML 21 ML IV ×2 (18:16→19:04)
[2018-06-26] MEDS: INSULIN GLARGINE 100 UNIT/ML 3ML PEN 32 UNIT SUBCUT (20:57)
[2018-06-26] MEDS: ACETAMINOPHEN 325 MG TABLET PO (20:59)
--- NOTE | 2018-06-26 22:14 | PC.NURSE ---
lilly shift- pt pleasant and cooperative with staff. given snacks. sugars controlled. pt up with cane per self to br. Pt updated on plan of care. Pt uses call garces. Pt did become very angry with himself and the wrapper when he couldn't open the Popsicle wrapper. Pt told that we can help, all he needs to do is call. pt stated I know. I just don't like to bother you wound vac is getting drainage out, dark brown/reddish tinged. will continue to monitor pt for safety.
[2018-06-27] VITALS (7 sets, daily range): BP systolic 117–164; BP diastolic 72–91; PULSE 75–90; RESP 16–18; TEMP 36.2–36.8; O2SAT 91–98
[2018-06-27] MEDS: CEFAZOLIN 2 GM/100 ML FROZ.PIGGY IV ×3 (01:45→18:06)
[2018-06-27] MEDS: VANCOMYCIN 1,250 MG in SODIUM CHLORIDE 0.9% 250 ML IV ×3 (02:26→18:44)
[2018-06-27] MEDS: INSULIN GLARGINE 100 UNIT/ML 3ML PEN 30 UNIT SUBCUT (08:27)
[2018-06-27] MEDS: INSULIN ASPART 100 UNIT/ML INSULN PEN SUBCUT ×2 (08:28→20:37)
[2018-06-27] MEDS: METFORMIN HCL 500 MG TABLET 1000 MG PO ×2 (08:29→16:50)
[2018-06-27] MEDS: ENOXAPARIN 40 MG/0.4 ML SYRINGE SUBCUT (08:29)
[2018-06-27] MEDS: NICOTINE 7 MG PATCH TOP (08:29)
[2018-06-27] MEDS: SODIUM CHLORIDE 0.9% FLUSH 10 ML IV ×2 (09:19→20:31)
--- NOTE | 2018-06-27 12:26 | CM.DPC ---
Addendum entered by Sylwia Mahmood R.N. 06/27/18 14:51: Kenya from [facility] called back. She was inquiring if patient was getting P.T or O.T. Stated that he was not. Asked her if this would have any affect on his admission, and she stated that it would not. She is continuing to work on case from home. Original Note: Addendum entered by Sylwia Mahmood R.N. 06/27/18 13:52: Went ahead and called Kenya on her admissions cell number for [facility]. Her number is: [phone]. Asked her about status of tomorrow, regarding Norovirus situation there. She stated that she would have a definate answer in the morning, but she had not heard of any new outbreaks. She also stated that she would start the [employer] authorization process today. Case management will follow up with her tomorrow morning. Original Note: DCP Cont: Patient has been compliant with care today. Attempted to call [facility] transport to inquire if they would be able to do wheel chair transport next week, but office is closed. Will have to follow up next week. Will be checking in with Kenya to see if Norovirus has resolved in facility for them to accept patient, and this would be pending [facility] authorization. P: DCP to continue to follow closely and check in with Kenya at [facility] tomorrow. Sylwia Mahmood RN/Automotive Services Manager
--- NOTE | 2018-06-27 12:38 | P.PN_ITS ---
Subjective Date Patient Seen: 06/27/18 Time Patient Seen: 09:00 Interval history: No changes in her overall status. Patient remains comfortable and has no complaints. Anticipate discharge to care facility tomorrow. Exam Vital Signs (past 8 hours): - 06/27/18 08:00 06/27/18 08:35 06/27/18 11:58 Temperature 98.1 F 98.3 F Pulse Rate 77 87 Respiratory Rate 16 17 Blood Pressure 150/86 H 164/90 H Pulse Oximetry 91 97 97 Fraction of Inspired Oxygen 21 Oxygen Delivery Method Room Air Oxygen Flow Rate 0 Narrative Exam Narrative: Wound VAC remains in place and is intact. Objective Labs Result Diagrams: 06/22/18 06:08 06/22/18 06:08 Assessment & Plan Assessment & Plan narrative: Anticipated discharge to care facility in [facility] tomorrow. Plan is for dressing change prior to discharge. Quality VTE Deep Vein Thrombosis/Pulmonary Embolism Present on Admission: No
--- NOTE | 2018-06-27 13:29 | PM.PN.1 ---
Subjective Date Patient Seen: 06/27/18 Time Patient Seen: 12:29 Interval history: Patient doing well no new complants. PICC line removed yesterday and Midline restarted for emt intermediate antibotics. Pt sitting at bedside anticipating D/C tommorow. NO complants of pain eating well blood sugars are stable. Exam Vital Signs (past 8 hours): - 06/27/18 08:00 06/27/18 08:35 06/27/18 11:58 Temperature 98.1 F 98.3 F Pulse Rate 77 87 Respiratory Rate 16 17 Blood Pressure 150/86 H 164/90 H Pulse Oximetry 91 97 97 Fraction of Inspired Oxygen 21 Oxygen Delivery Method Room Air Oxygen Flow Rate 0 Narrative Exam Narrative: Gen: alert and orientated HEENT: NCAT PERRLA oral mucosa moist CARDIO: s1 s2 RRRR RESP: normal resp effort lungs clear ABD: soft EXT: Wound vac in place redness and swelling present. Objective Labs Result Diagrams: 06/22/18 06:08 06/22/18 06:08 Assessment & Plan Assessment & Plan narrative: Diabetic foot ulcer with osteomyelitis Currently on vancomycin cephazolin Diabetes Continue with insulin per protocol and monitor blood sugars Tobacco use Dispo: Discharged to SNF when bed available Quality VTE Deep Vein Thrombosis/Pulmonary Embolism Present on Admission: No
--- NOTE | 2018-06-27 13:32 | PC.NURSE ---
wound care deferred to Thursday, 06/28.Preferably to be done by MD prior to Pt transfer to [facility]. This is per Dr Ortega, to have the wound assessed prior to dc from . Wnd vac is intact at this time, no leaks. Pt cont on IV antibX regimen.
--- NOTE | 2018-06-27 13:33 | P.PN_ITS ---
Subjective Date Patient Seen: 06/27/18 Time Patient Seen: 12:29 Interval history: Patient doing well no new complants. PICC line removed yesterday and Midline restarted for middle or intermediate school principal antibotics. Pt sitting at bedside anticipating D/C tommorow. NO complants of pain eating well blood sugars are stable. Exam Vital Signs (past 8 hours): - 06/27/18 08:00 06/27/18 08:35 06/27/18 11:58 Temperature 98.1 F 98.3 F Pulse Rate 77 87 Respiratory Rate 16 17 Blood Pressure 150/86 H 164/90 H Pulse Oximetry 91 97 97 Fraction of Inspired Oxygen 21 Oxygen Delivery Method Room Air Oxygen Flow Rate 0 Narrative Exam Narrative: Gen: alert and orientated HEENT: NCAT PERRLA oral mucosa moist CARDIO: s1 s2 RRRR RESP: normal resp effort lungs clear ABD: soft EXT: Wound vac in place redness and swelling present. Objective Labs Result Diagrams: 06/22/18 06:08 06/22/18 06:08 Assessment & Plan Assessment & Plan narrative: Diabetic foot ulcer with osteomyelitis Currently on vancomycin cephazolin Diabetes Continue with insulin per protocol and monitor blood sugars Tobacco use Dispo: Discharged to SNF when bed available Quality VTE Deep Vein Thrombosis/Pulmonary Embolism Present on Admission: No
--- NOTE | 2018-06-27 19:05 | PC.NURSE ---
Addendum entered by Windy Schreiber R.N. 06/27/18 23:00: Pt disconnects wound vac and shower set up after LOG SKIDDER covered pt's midline LUE and left foot wound/dressing. Independent in shower. Up in motorized chair. Now settled back into bed and pt reconnects wound vac independently. Declines offer for lorazepam to aid in sleep stating, I think it makes me meaner. Pt has been cooperative, pleasant entire evening shift. Original Note: Pt asleep in bed until evening meal. Pleasant, calm, cooperative with care. Denies pain. Wound vac dressing to left foot intact and pump functional. Palpable pedal pulses BL. Scaly, peeling skin to feet BL. Pt keeps LLE elevated in bed. IV antibiotics as per emar.
[2018-06-27] MEDS: INSULIN GLARGINE 100 UNIT/ML 3ML PEN 32 UNIT SUBCUT (20:38)
[2018-06-28] VITALS (8 sets, daily range): BP systolic 111–132; BP diastolic 65–76; PULSE 71–95; RESP 17–18; TEMP 36.3–36.8; O2SAT 95–99
[2018-06-28] MEDS: CEFAZOLIN 2 GM/100 ML FROZ.PIGGY IV ×3 (02:25→18:08)
[2018-06-28] MEDS: SODIUM CHLORIDE 0.9% FLUSH 10 ML IV ×3 (02:26→20:51)
[2018-06-28] MEDS: ACETAMINOPHEN 325 MG TABLET PO ×3 (03:24→18:16)
[2018-06-28] MEDS: VANCOMYCIN 1,250 MG in SODIUM CHLORIDE 0.9% 250 ML IV ×3 (03:24→19:35)
[2018-06-28 05:54] LABS: Alanine Aminotransferase 16 IU/L (21-72); Albumin 3.7 g/dL (3.5-5.0); Albumin Globulin Ratio 1.1 (1.0-2.8); Alkaline Phosphatase 50 U/L (38-126); Aspartate Aminotransferase 12 IU/L (17-59); BUN Creatinine Ratio 31.3 (6-22); Bilirubin Total 0.3 mg/dL (0.2-1.3); Blood Urea Nitrogen 25 mg/dL (9-20); Calcium 9.1 mg/dL (8.4-10.2); Carbon Dioxide 27 mmol/L (22-32); Chloride 103 mmol/L (98-107); Estimated Glomerular Filt Rate > 60.0 mL/min (>60); Globulin 3.4 g/dL (1.7-4.1); Glucose 154 mg/dL (70-100); HEMOLYSIS < 15 (0-50); Sodium 139 mmol/L (137-145); Total Protein 7.1 g/dL (6.3-8.2)
[2018-06-28 05:59] LABS: Add Manual Diff / Slide Review NO; Basophils Absolute Auto 100 /uL (0-100); Basophils Percent Auto 0.9 % (0-2); Eosinophils Absolute Auto 300 /uL (0-450); Eosinophils Percent Auto 4.1 % (2-4); Hematocrit 39.4 % (41-53); Hemoglobin 13.3 g/dL (13.5-17.5); Lymphocytes Absolute Auto 1800 /uL (1100-4500); Lymphocytes Percent Auto 22.6 % (25-40); Mean Corpuscular HGB Conc 33.9 % (30-36); Mean Corpuscular Hemoglobin 29.8 PG (26-34); Mean Corpuscular Volume 87.9 fL (80-100); Monocytes Absolute Auto 600 /uL (0-900); Monocytes Percent Auto 7.7 % (3-14); Neutrophils Absolute Auto 5100 /uL (1500-7000); Neutrophils Percent Auto 64.7 % (50-75); Platelet Count 237 X10^3/uL (150-400); Red Blood Cell Count 4.48 X10^6/uL (4.5-5.9); Red Cell Distribution Width 14.8 % (11.6-14.8); White Blood Cell Count 7.9 X10^3/uL (4.5-11.0)
[2018-06-28 06:19] LABS: C-Reactive Protein Quant < 0.5 mg/dL (<1.0)
[2018-06-28 06:21] LABS: Erythrocyte Sedimentation Rate 45 MM/HR (0-15)
[2018-06-28] MEDS: ENOXAPARIN 40 MG/0.4 ML SYRINGE SUBCUT (08:19)
[2018-06-28] MEDS: NICOTINE 7 MG PATCH TOP (08:20)
[2018-06-28] MEDS: METFORMIN HCL 500 MG TABLET 1000 MG PO ×2 (08:20→17:04)
[2018-06-28] MEDS: INSULIN GLARGINE 100 UNIT/ML 3ML PEN 30 UNIT SUBCUT (08:24)
[2018-06-28] MEDS: INSULIN ASPART 100 UNIT/ML INSULN PEN SUBCUT ×2 (08:24→17:04)
--- NOTE | 2018-06-28 08:28 | CM.DPC ---
Addendum entered by Buffy Pickard LPN 06/28/18 08:54: re Medicaid Transport: spoke with Rehana: [phone]. She confirmed that pt does have the Transport benefit and that since the [facility] is the only accepting facility pt can access this resource. She cannot be fully certain of ability to provide the w/c van until she has the weight of the w/c: it is electric. RN Coordinator Annie will look into having the chair weighed. Pt's current wt is 110 k lbs. Hospital Discharge Request Form/Medicaid Transport Services is started. Will fax back when the d/c date is known. Kenya is aware that pt uses an electric w/c. She does need updated info for [facility] and will plan to fax this today. Original Note: DCP: continued: Case received again, EMR reviewed and spoke with Dr. Morales, here to see pt. Agreed to update her today if the d/c to [facility] is in place for today. Spoke then with ortho SUNITHA Jade who reports she just changed the wound vac this morning. Noted PICC line was replaced yesterday/per Ronnie Rutledge's notes. Stopped in to see pt. He was found sitting up eating breakfast, joking with nursing staff. He says he is hopeful that he will get the word that he can go today. Agreed to keep him updated. Called Kenya/Kirill. She states the facility did have another norovirus case yesterday but not on the wing that pt will d/c into. She reports there are no beds in that area available yet. Asked about any room moves that could possibly be done to facilitate this. Kenya says she will discuss in Team Meeting this morning. She confirms that this remains the only barrier to acceptance of pt and that she would very much like to get him settled into the facility. She is continuing the [facility] auth process. Will check on the Medicaid transport option. Am unsure if this will be doable as the facility is not close to ...
--- NOTE | 2018-06-28 09:58 | PM.PN.1 ---
Subjective Date Patient Seen: 06/28/18 Time Patient Seen: 08:00 Interval history: No complaints this morning. Eager to know a discharge plan. Exam Vital Signs (past 8 hours): - 06/28/18 02:31 06/28/18 06:22 06/28/18 07:50 Temperature 97.7 F 97.7 F Pulse Rate 82 79 84 Respiratory Rate 18 18 18 Blood Pressure 117/76 132/73 111/65 Pulse Oximetry 95 98 98 Fraction of Inspired Oxygen 21 Oxygen Delivery Method Room Air Oxygen Flow Rate 0 Narrative Exam Narrative: General: Well-appearing, polite and pleasant. Talkative this morning. CV: Regular rate and rhythm, no murmur. Lungs: Clear to auscultation bilaterally without wheezes. Extremities: Large ulceration of left foot. Orthopedics was changing his wound VAC during this visit. No lower extremity edema. Objective Labs Result Diagrams: 06/28/18 05:30 06/28/18 05:30 Labs: Laboratory Results - last 24 hr 06/28/18 06/28/18 05:30 05:30 WBC 7.9 RBC 4.48 L Hgb 13.3 L Hct 39.4 L MCV 87.9 MCH 29.8 MCHC 33.9 RDW 14.8 Plt Count 237 Neut % (Auto) 64.7 Lymph % (Auto) 22.6 L [place] % (Auto) 7.7 Eos % (Auto) 4.1 H Baso % (Auto) 0.9 Neut # (Auto) 5100 Lymph # (Auto) 1800 [place] # (Auto) 600 Eos # (Auto) 300 Baso # (Auto) 100 ESR 45 H Sodium 139 Potassium 4.0 Chloride 103 Carbon Dioxide 27 BUN 25 H Creatinine 0.80 Estimated GFR > 60.0 BUN/Creatinine Ratio 31.3 H Glucose 154 H Calcium 9.1 Total Bilirubin 0.3 AST 12 L ALT 16 L Alkaline Phosphatase 50 C-Reactive Protein < 0.5 Total Protein 7.1 Albumin 3.7 Globulin 3.4 Albumin/Globulin Ratio 1.1 Assessment & Plan Assessment & Plan narrative: 58-year-old male with poorly controlled diabetes admitted with diabetic foot ulcer with osteomyelitis. Status post debridement. Now with wound VAC. Has completed 3 of 6 weeks of IV antibiotics. Stable and medically ready for discharge when a bed is available. Will put specific discharge instructions in discharge summary. Quality VTE Deep Vein Thrombosis/Pulmonary Embolism Present on Admission: No
[2018-06-28 11:48] LABS: Vancomycin Trough 15.5 ug/mL (10-20)
[2018-06-28] MEDS: VANCOMYCIN TROUGH 1 REQUEST MISC (11:53)
[2018-06-28] MEDS: LORazepam 0.5 MG TABLET PO (18:16)
[2018-06-28] MEDS: INSULIN GLARGINE 100 UNIT/ML 3ML PEN 32 UNIT SUBCUT (20:50)
--- NOTE | 2018-06-28 23:33 | PC.NURSE ---
Evening note: Ray was in good spirits earlier this afternoon/evening, Ox3, talkative, conversing with staff. Denied any pain to leg, wound vac drsg is sealed & CDI, set to vac suction. CBG 182 prior to meal, 2 units sliding scale given. CBG 162 at HS, Lantus given as ordered. Pt denies nausea, eating all of meals, asking for snacks often telling nurse they don't give us enough food. DL Midline to LUE is drawing/infusing with no difficulty. IV Ancef started per schedule. Patient c/o dull back pain and trouble relaxing, medicated with Tylenol and Ativan per his specific request. At 1930 patient was observed in wheelchair in front of main nurse station complaining that his antibiotic was late. GRANTS ADMINISTRATOR then observed walking next to patient's wheelchair helping to console him. When I went to room to assess situation he was nonverbal with me, would not catch eye contact. Vanco already infusing (float RN apparently started med when I was busy with another patient.) When IV antibiotic complete, [facility], both ports drawing blood & flushing with no difficulty. CBG 162, Lantus 32 units dialed up in pen, when I asked patient where he wanted me to give injection he grabbed pen and gave Lantus to RUQ, with good technique. Patient still non-verbal with this nurse. When I asked him if the Tylenol helped his back pain, he looked away from me putting hand in front of face. I encouraged him to call staff if he has any needs or concerns and then left room. GRANTS ADMINISTRATOR reports that patient has been talkative with her & expressing his needs throughout shift.
[2018-06-29 01:05] VITALS: BP 127/72; PULSE 76; RESP 15; TEMP 36.8; O2SAT 96
[2018-06-29] MEDS: CEFAZOLIN 2 GM/100 ML FROZ.PIGGY IV ×2 (02:03→09:03)
[2018-06-29] MEDS: SODIUM CHLORIDE 0.9% 250 ML 21 ML IV (02:04)
[2018-06-29] MEDS: SODIUM CHLORIDE 0.9% FLUSH 10 ML IV ×2 (02:04→09:03)
[2018-06-29 02:11] VITALS: O2SAT 96
[2018-06-29] MEDS: VANCOMYCIN 1,250 MG in SODIUM CHLORIDE 0.9% 250 ML IV ×2 (02:52→09:48)
[2018-06-29 06:42] VITALS: BP 129/78; PULSE 71; RESP 16; TEMP 37.2; O2SAT 94
[2018-06-29 07:45] VITALS: BP 141/95; PULSE 86; RESP 20; TEMP 37.1; O2SAT 98
[2018-06-29] MEDS: INSULIN ASPART 100 UNIT/ML INSULN PEN SUBCUT (07:46)
[2018-06-29] MEDS: INSULIN GLARGINE 100 UNIT/ML 3ML PEN 30 UNIT SUBCUT (07:48)
[2018-06-29] MEDS: ENOXAPARIN 40 MG/0.4 ML SYRINGE SUBCUT (07:49)
[2018-06-29] MEDS: METFORMIN HCL 500 MG TABLET 1000 MG PO (07:51)
[2018-06-29] MEDS: NICOTINE 7 MG PATCH TOP (07:51)
--- NOTE | 2018-06-29 08:55 | CM.DPC ---
Addendum entered by Buffy Pickard LPN 06/29/18 14:34: Received a call from Natividad/EMERY. She identifies herself as pt's test case developer/Home and Community Services: [phone] Went over details of the stay, the d/c plan and issues related to a return to [facility]. Gave her Argenis's contact info. Natividad will followup with Kirill and continue to follow pt. She has been following him since his move from homelessness into the [facility] and expresses that she has good understanding of the issues and challenges in caring for this pt. Original Note: Addendum entered by Buffy Pickard LPN 06/29/18 14:05: Reji has authorized the snf admission. Kenya has all orders. Medicaid Transport request was faxed and Kellie has called back to say that [facility] will pick pt up at 1400. Wound vac removed, dressings remain on. ZULLY Hannah is calling report. Dr. Morales came over about 1330 and finalized the admission paperwork and d/c summary. Pt has been updated throughout the day and is agreeable. He is currently up and about in his w/c saying goodbye to hospital staff. Will update [place]/Solar Sales Representative And Assessor for the [facility] as pt is expected to return to [facility] after the snf stay. Original Note: Addendum entered by Buffy Pickard LPN 06/29/18 11:41: Checked EMR, d/c orders are still in process, only partially completed and no d/c summary yet. Alerted ZULLY Hannah who states she will talk with Dr. Morales. SUNITHA Lara's note of today say wound vac will be changed prior to d/c but do not think this was done today. Have left a message on his cell as the ortho team are the ones who have been doing this. This d/c air brake mechanic spoke with mariana Jade yesterday and she stated she had just changed the dressing but no note is available to indicate same. Will need Dr. Morales to coordinate all the d/c to snf orders...will be following. Kenya did call back early today requesting some medications specifics that Reji needed. Info provided. Will follow. Did check in on transport issues: called [facility] to see what might be available for transport of pt with electric w/c in case needed option to Medicaid to facilitate a more timely d/c. He confirmed that he does not have a w/c lift for his vans and cannot accommodate electric wheelchairs due to weight. Original Note: DCP: continued: spoke now with [facility] She confirms she sent updates to Reji yesterday and is waiting to hear about authorization. She says she expects this tomorrow. She confirms that there is now an open bed waiting for pt and they will accept him as soon as auth is in place. Spoke with Dr. Morales earlier today as she rounded on pt. Have now called her clinic and left a message with above info and request for consideration of putting in the full d/c orders now, pending the [facility] auth. Will need to set up transport at d/c via Medicaid process. Will update pt and Zully Hannah.
--- NOTE | 2018-06-29 09:03 | PM.PNPO.1 ---
Subjective Date Patient Seen: 06/29/18 Time Patient Seen: 09:03 Interval history: Hospital day 2 on 10/15 with status post left foot diabetic ulcer debridement and partial conform exostectomy. Patient remained stable. he is on vancomycin and cefazolin. His PICC line was changed to midline on 06/26/2018. Continues to have wound VAC. His foot was partially debrided and a new wound VAC placed on 06/24/[address] Mendosa. He does need dressing changed today. patient is awaiting transfer to SNF. Exam Vital Signs (past 8 hours): - 06/29/18 01:05 06/29/18 02:11 06/29/18 06:42 Temperature 98.2 F 98.9 F Pulse Rate 76 71 Respiratory Rate 15 16 Blood Pressure 127/72 129/78 Pulse Oximetry 96 96 94 Fraction of Inspired Oxygen 21 Oxygen Delivery Method Room Air Oxygen Flow Rate 0 Narrative Exam Narrative: Patient is alert and active in no acute distress and sitting on the edge of bed. left foot. the VAC dressing in place. Dressing in place. No drainage or inflammation noted. Objective Labs Result Diagrams: 06/28/18 05:30 06/28/18 05:30 Labs: Laboratory Results - last 24 hr 06/28/18 10:45 Vancomycin Trough 15.5 Assessment & Plan Post-op Postoperative Procedures Operation Date: 06/11/18 14:15 Actual Procedures Side Surgeon p I&D Foot diabetic ulcer/Infection, bone biopsy Left aRdha Mendosa MD Plan: Patient awaiting transfer to SNF. Will need wound VAC unchanged. He may have wound VAC changes done at [facility] if he is in the local area. Quality VTE Deep Vein Thrombosis/Pulmonary Embolism Present on Admission: No
[2018-06-29 10:43] VITALS: O2SAT 93
--- NOTE | 2018-06-29 13:16 | PM.DS.1 ---
History of Present Illness Date Patient Seen: 06/29/18 Time Patient Seen: 08:00 Chief complaint: LEFT FOOT INFECTION Narrative: Patient is a 58-year-old male with uncontrolled diabetes, tobacco use and chronic diabetic left foot ulcer who was sent to the emergency department from the wound care clinic due to concern for infection of his foot. He has no sensation in his feet due to neuropathy. Was feeling well at the time of admission and denied fevers or chills. MRI completed shortly after admission showed possible septic arthritis, likely osteomyelitis and loculated abscess in addition to Charcot foot. Orthopedics was promptly consulted. He was started on vancomycin and Zosyn. Discharge Providers Date of admission: 06/07/18 19:18 Discharge Date: 06/29/18 Primary care physician: Madeline Morales DO Consults: 06/07/18 20:16 Consult to Dietitian, Adult Routine Comment: Reason For Exam: uncontrolled diabetes 06/08/18 08:18 Consult to Wound Care Routine Comment: Consulting Provider: [facility] 06/08/18 13:20 Consult to Orthopedic Surgery Routine Comment: Consulting Provider: Fatemeh Funes Reason for consultation: osteo, septic arthritis, charcot foot Has provider been notified: Yes 06/10/18 09:01 Consult to PICC Line RN Routine Comment: 06/11/18 08:03 Consult to Discharge Planning Routine Comment: SNF for IV antibiotics 06/13/18 11:52 Consult to Physical Therapy Evaluate & Treat Comment: mobility evaluation and teaching Physician Instructions: Evaluate and Treat Discharge provider: Madeline Morales DO Summary Discharge Diagnosis: Left diabetic foot ulcer Osteomyelitis Uncontrolled diabetes Tobacco use COPD Hospital Course: Patient was admitted to the medical floor and started on vancomycin and Unasyn for osteomyelitis of left diabetic foot ulcer. He was seen by Dr. Mendosa, foot and ankle specialist with Orthopedics. Vascular studies were done showing no arterial disease in the left leg. Dr. Mendosa took him to the operating room on 06/11/18 for irrigation debridement as well as bone biopsy of the affected foot and wound vac placement. Cultures returned with MRSA, Klebsiella and group B strep. Dr. Rosalie Nieves with Infectious Disease at [facility] was consulted over the phone for antibiotic recommendations. After review of culture and sensitivities, she recommended continued vancomycin for MRSA and cefazolin 2g q8h to cover Klebsiella pneumonia as well as group B strep. Due to osteomyelitis, patient needs 6 weeks of IV antibiotics (last day of antibiotics will be 07/19/18). Upon discharge, Dr. Nieves recommended a vancomycin trough Thursday/ with a goal 15-20. BUN/creatinine Thursday/. CBC, CRP and ESR weekly. Needs to follow up in the Infectious Disease Clinic 2 weeks after hospital discharge. Patient had a prolonged hospitalization due to placement issues. During that time his wound VAC was changed every 3 days by Orthopedics. He was also seen by Physical therapy. Patient has a history of uncontrolled diabetes secondary to compliance problems. In the hospital blood sugars were well controlled with Lantus 32 units in the morning and 30 units at night. He received a nicotine patch due to history of tobacco use. Patient was pleased that he went 3 weeks without smoking while in the hospital. Known COPD, no exacerbation this hospitalization. He received occasional lorazepam for anxiety while in the hospital with relief of symptoms. He will discharge to [facility] in [place] for ongoing IV antibiotics and wound VAC management. Last day of antibiotics will be 07/19/18. He previously lived at [facility] and hopes to return there upon discharge from [facility]. Status at Discharge Cognitive/behavioral status at discharge: oriented Functional status at discharge: wheelchair bound Overall status at discharge: patient is progressing back to baseline Time Spent with Patient Less than 30 minutes Exam Vital Signs (past 8 hours): - 06/29/18 06:42 06/29/18 07:45 06/29/18 10:43 Temperature 98.9 F 98.7 F Pulse Rate 71 86 Respiratory Rate 16 20 Blood Pressure 129/78 141/95 H Pulse Oximetry 94 98 93 Fraction of Inspired Oxygen 21 Oxygen Delivery Method Room Air Oxygen Flow Rate 0 Narrative Exam Narrative: General: Well-appearing, polite and pleasant. CV: Regular rate and rhythm, no murmur. Lungs: Clear to auscultation bilaterally without wheezes. Extremities: No lower extremity edema. Wound VAC in place and draining on left foot. Objective Imaging MRI extremity: Radiologist's impression: IMPRESSION: 1. Plantar soft tissue ulcer at the level of the 1st metatarsophalangeal joint extending to the underlying bony structures consistent with associated osteomyelitis and suspected septic arthritis at the 1st metatarsophalangeal joint. 2. Lobulated fluid collection medial to the 1st metatarsophalangeal joint is suspicious for an abscess with evaluation limited by the absence of intravenous contrast. This appears contiguous with a small amount of tenosynovial fluid along the flexor hallucis longus tendon suspicious for septic tenosynovitis at the level of the 1st metatarsal shaft. 3. Soft tissue ulcer within the medial mid foot extending to the medial cuneiform associated with probable mild osteomyelitis. 4. Charcot foot foot redemonstrated. Dictated by: Ty Alvarado M.D. on 06/08/2018 at 11:56 Approved by: Ty Alvarado M.D. on 06/08/2018 at 12:49 US: Radiologist's impression: PROCEDURE: US ARTERIAL DUPLEX LE BI INDICATIONS: left foor ulcer TECHNIQUE: Color and pulse Doppler interrogation was performed of both lower extremity arterial systems, with image documentation. COMPARISON: [facility], US, ARTERIAL LOW.EXTREM.BILATERAL, 06/06/2014, 9:37. FINDINGS: Normal-appearing, triphasic waveforms are seen throughout. The flow velocities are likewise within normal limits. No focal area of increased flow velocity is seen to suggest a focal stenosis. Antegrade flow is confirmed to the distal aspects of each of the trifurcation vessels. Scattered atherosclerotic plaque can be seen. IMPRESSION: No hemodynamically significant stenosis can be seen. Dictated by: Stew Thorne M.D. on 06/10/2018 at 8:27 Approved by: Stew Thorne M.D. on 06/10/2018 at 8:28 Labs Result Diagrams: 06/28/18 05:30 06/28/18 05:30 Discharge Plan Discharge Plan Discharge Problem: Diabetic foot ulcer, Diabetes Patient Disposition: SNF Other facility: [facility] Under care of provider: House physician Transportation: Ambulance Labs: CBC, CRP, ESR, CRP weekly; vanco trough, BUN/CR Thu/ I certify the [facility] care is medically necessary on a continuing basis for any conditions for which he/ she received care during this hospitalization.: Yes The receiving facility has agreed to accept transfer and provide medical treatment.: Yes Discharge Med Rec/Prescriptions Prescriptions: New acetaminophen 325 mg Tablet 325 mg PO Q6HR PRN (Reason: As Needed For Fever/Mild Pain) Qty: 30 RF: 0 albuterol sulfate [Ventolin HFA] 90 mcg/actuation Hfa Aerosol Inhaler 2 puff INH RTQ4HR PRN (Reason: Shortness Of Breath) Qty: 1 RF: 0 metformin [Glucophage] 500 mg Tablet 1,000 mg PO BIDWM Qty: 60 RF: 0 lorazepam 0.5 mg Tablet 0.5 mg PO Q6HR PRN (Reason: Anxiety) Qty: 20 RF: 0 Novolog Flexpen U-100 Insulin 100 unit/mL Insulin Pen subcut ACHS Qty: 1 RF: 0 cefazolin in 0.9% sod chloride 2 gram/100 mL solution 2 gram IV Q8H Qty: 2000 RF: 0 Lantus Solostar U-100 Insulin 100 unit/mL (3 mL) Insulin Pen 32 unit subcut BEDTIME Qty: 1 RF: 0 Lantus Solostar U-100 Insulin 100 unit/mL (3 mL) Insulin Pen 30 unit subcut DAILY Qty: 1 RF: 0 nicotine 7 mg/24 hr Patch 24 Hour 7 mg topical DAILY Qty: 30 RF: 0 vancomycin 250 mg recon soln 1.25 gram IV Q8H Qty: 10 RF: 0 Discontinued metformin [Glucophage] 500 MG tablet 1,000 mg PO BIDCC Qty: 120 RF: 1 lancets [TRUEplus Lancets] 30 gauge misc .ROUTE .MEDSUPPLY Qty: 100 RF: 11 blood sugar diagnostic [True Metrix Glucose Test Strip] strip .ROUTE .MEDSUPPLY Qty: 100 RF: 3 insulin glargine [Basaglar KwikPen U-100 Insulin] 100 unit/mL (3 mL) insulin pen 40 unit SUBCUT HS Qty: 1 RF: 1 pen needle, diabetic [BD Ultra-Fine Kathleen Pen Needle] 32 gauge x 5/32 needle .ROUTE .MEDSUPPLY Qty: 100 RF: 0 Follow up/Referrals: Rosalie Nieves MD [Non-Staff] - 2 Weeks (Two weeks after hospital discharge, Infectious Disease Clinic [facility]) Radha Mendosa MD [Physician] - (Follow up with [facility] for post operative appointment two weeks after hospital discharge) Madeline Morales DO [Primary Care Provider] - 1 Month (Follow up after discharge from [facility]) Discharge Health Status Brief summary of current health status: 58 year old man with uncontrolled diabetes admitted with left diabetic foot infection with osteomyelitis s/p debridement on 06/11/18. Cultures positive for MRSA, group B strep and Klebsiella. Needs six weeks of IV vanco and cefazolin, will be complete 07/19/18. Needs wound vac changed every three days. Serial labs as above. Follow up as above. Multidrug resistant organism: MRSA MDRO Verified by culture: Yes Date verified: 06/11/18 Precautions: Contact Provider Discharge Instructions Diet: Carb-consistent/Diabetic Liquid consistency: Normal/Thin Food texture: Regular Activity: As tolerated Skin/Wound/Dressing Care Other wound treatment: Wound vac needs to be changed every three days, last change 06/28/18 Special [facility] Reason for rehabilitation: Post-operative therapy and Other Rehab type: Physical therapy Discharge Data Primary Care Provider: Madeline Morales Attending Provider: Madeline Morales Admit Date/Time: 06/07/18 19:18 Discharges patient from system. Discharge Date/Time: 06/29/18 14:45 Quality VTE Deep Vein Thrombosis/Pulmonary Embolism Present on Admission: No
--- NOTE | 2018-06-29 14:43 | PC.NURSE ---
Pt discharged to [facility]. Left via medicaid van about 10 minutes ago. Packet sent with patient and report called to facility.
== END 2018-06-29 14:45 | DRG 314 ==
LOC: ED 19:10 → AC 19:19
PROVIDERS: Family Medicine; Orthopaedic Surgery Foot and Ankle Surgery; Admitting Provider Family Medicine; Emergency Provider Emergency Medicine; PCP Family Medicine; Visit Provider Family Medicine
PROC: 0QBM0ZZ Excision of Left Tarsal, Open Approach (ICD-10-PCS; principal; 2018-06-11 14:15)
DX: E11.69 Type 2 diabetes mellitus with other specified complication (principal); E11.621 Type 2 diabetes mellitus with foot ulcer; L97.426 Non-pressure chronic ulcer of left heel and midfoot with bone involvement without evidence of necrosis; E11.65 Type 2 diabetes mellitus with hyperglycemia; M00.872 Arthritis due to other bacteria, left ankle and foot; E11.610 Type 2 diabetes mellitus with diabetic neuropathic arthropathy; M86.8X7 Other osteomyelitis, ankle and foot; F17.210 Nicotine dependence, cigarettes, uncomplicated; Z97.4 Presence of external hearing-aid; A49.01 Methicillin susceptible Staphylococcus aureus infection, unspecified site; B95.1 Streptococcus, group B, as the cause of diseases classified elsewhere; B96.89 Other specified bacterial agents as the cause of diseases classified elsewhere; F41.9 Anxiety disorder, unspecified; J44.9 Chronic obstructive pulmonary disease, unspecified
CPT/HCPCS: 36415; 36569; 36573; 36591; 36592; 73630; 73718; 80048; 80053; 80202; 82962; 83036; 83605; 84145; 85025; 85651; 86140; 87040; 87070; 87075; 87077; 87147; 87186; 87205; 90471; 90656; 93925; 94760; 94762; 96365; 97162; 97530; 99222; 99232; 99233; 99238; 99283; 99284; 99406; J0690; J1642; J1650; J2250; J2543; J3370; J7050; Q2038

== ENCOUNTER → 2018-08-16 15:08 | Outpatient (CLI) | payer OTHER, MEDICAID, SELFPAY | PROVIDERS: PCP Family Medicine; Visit Provider Podiatrist Primary Podiatric Medicine | DX: E11.621 Type 2 diabetes mellitus with foot ulcer (principal); L97.421 Non-pressure chronic ulcer of left heel and midfoot limited to breakdown of skin | CPT/HCPCS: 97597; 97598; 99214 ==

== ENCOUNTER → 2018-08-18 15:23 | Outpatient (CLI) | payer OTHER, MEDICAID, SELFPAY | PROVIDERS: PCP Family Medicine; Visit Provider Family Medicine | DX: E11.621 Type 2 diabetes mellitus with foot ulcer (principal); L97.421 Non-pressure chronic ulcer of left heel and midfoot limited to breakdown of skin | CPT/HCPCS: 97607 ==

== ENCOUNTER 2018-08-20 14:15 | Inpatient (IN) | payer OTHER, MEDICAID, SELFPAY ==
[2018-08-20 14:30] VITALS: BP 137/85; PULSE 103; RESP 21; TEMP 36.4; O2SAT 94; BMI 36.0
--- NOTE | 2018-08-20 14:31 | DI.RAD.S_ITS ---
PROCEDURE: XR FOOT LT MIN 3V INDICATIONS: osteo? open wound TECHNIQUE: 3 views of the foot were acquired. COMPARISON: [facility], CR, XR FOOT LT MIN 3V, 06/10/2018, 10:34. FINDINGS: Bones: No displaced fractures or dislocations are evident involving the osseous structures of the left foot. No suspicious osseous lesions are identified. Partial bony fusion involving the 2nd and 3rd metatarsals is evident, similar to the prior study. Severe degenerative changes of the midfoot and moderate degenerative changes of the forefoot and hindfoot are similar to the previous exam. No obvious osseous erosions involving the metatarsal heads is appreciated when compared to the prior study. Soft tissues: Small skin defect is identified along the plantar aspect of the forefoot underlying the metatarsal heads. No radiopaque foreign bodies are appreciated. IMPRESSION: 1. No definitive osseous erosions to suggest osteomyelitis. MRI with intravenous contrast would be helpful to more definitively evaluate for osteomyelitis, if indicated. 2. Moderate to severe degenerative changes of the left foot. Dictated by: Cm Purcell M.D. on 08/20/2018 at 13:56 Approved by: Cm Purcell M.D. on 08/20/2018 at 13:59
--- NOTE | 2018-08-20 14:34 | ED.WOUNDLAC ---
HPI - Wound/Laceration General Chief Complaint: Skin/Abscess/Foreign Body Stated Complaint: sent from wound care Time Seen by Provider: 08/20/18 14:20 Source: patient Mode of arrival: ambulatory Limitations: no limitations History of Present Illness HPI narrative: 58-year-old male smoker with history of diabetes and osteomyelitis presents from wound care at the request of the wound care physician for a likely repeat osteomyelitis of his left foot. Patient has a rather lengthy history regarding infection of this foot which started with a lengthy admission in May in which he was vancomycin and capsule. He had been on IV antibiotics for about 6 weeks and then a week or 2 ago Infectious Disease switched him over to Bactrim. Since then his foot has become red, swollen and draining again. The wound care sent him here for IV antibiotics, repeat imaging and possible recurrence surgery. Patient denies any systemic findings such as fever, chills or nausea or vomiting Onset (ago): unknown Extremity Location: Left: foot Place: home Patient tetanus UTD: Yes Treatments prior to arrival: bandage Related Data Home Medications Medication Instructions Recorded Confirmed acetaminophen 975 mg PO Q6HR PRN 08/20/18 08/20/18 insulin glargine [Lantus Solostar 30 unit SUBCUT BID 08/20/18 08/20/18 U-100 Insulin] melatonin 9 mg PO BEDTIME PRN 08/20/18 08/20/18 sulfamethoxazole-trimethoprim 600 mg PO BID 08/20/18 08/20/18 [Bactrim] Previous Rx's Medication Instructions Recorded albuterol sulfate [Ventolin HFA] 2 puff INH RTQ4HR PRN #1 g 06/29/18 insulin aspart U-100 [Novolog 0 unit SUBCUT ACHS #1 ml 06/29/18 Flexpen U-100 Insulin] metformin [Glucophage] 1,000 mg PO BIDWM #60 tab 06/29/18 Allergies Allergy/AdvReac Type Severity Reaction Status Date / Time hydrocodone Allergy Mild ITCHING Verified 06/07/18 15:51 oxycodone [OXYCODONE] Allergy Mild ITCHING Verified 06/07/18 15:51 codeine AdvReac Mild STOMACH Verified 06/07/18 15:51 UPSET Review of Systems Constitutional Denies chills, Denies fever(s), Denies lethargy and Denies weakness Eyes Denies change in vision, Denies eye discharge, Denies irritation and Denies loss of vision ENT Ears, Nose, Mouth, and Throat: Denies change in voice, Denies neck pain and Denies sore throat Cardiovascular Denies chest pain, Denies irregular heart rhythm, Denies lightheadedness, Denies palpitations, Denies dyspnea, Denies dyspnea on exertion and Denies orthopnea Respiratory Denies cough, Denies dyspnea, Denies dyspnea on exertion and Denies wheezing Gastrointestinal Gastrointestinal: Denies abdominal pain, Denies change in bowel habits, Denies diarrhea, Denies nausea and Denies vomiting Genitourinary Denies hematuria, Denies flank pain, Denies urinary incontinence and Denies urinary urgency Musculoskeletal Denies neck pain Integumentary/Breasts Denies pruritus, Reports erythema, Denies rash, Reports skin swelling, Reports skin ulcer, Reports sores and Reports wounds Neurologic Denies confusion, Denies loss of vision and Denies weakness Psychiatric Denies anxiety, Denies confusion, Denies depression, Denies homicidal ideation and Denies suicidal ideation Endocrine Denies palpitations Hematologic/Lymphatic Denies easy bruising Allergic/Immunologic Denies wheezing [facility] Medical History Chronic diabetic ulcer of foot determined by examination (Chronic) Diabetes mellitus (Chronic) Presence of surgical screw in left hand (Chronic) CTS (carpal tunnel syndrome) (Resolved) Surgical History History of carpal tunnel release (Resolved) History of hand surgery (Resolved) History of umbilical hernia repair (Resolved) Status post left foot surgery (Resolved) Status post left foot surgery (Resolved) Family History Father Diabetes mellitus Mother No problems noted. Social History household members: none Smoking Status: Current every day smoker alcohol intake: former Family History Father Diabetes mellitus Mother No problems noted. Social History household members: none Smoking Status: Current every day smoker alcohol intake: former Exam Narrative Exam Narrative: GENERAL: 58-year-old male appears older than stated age, a bit disheveled and unkempt. No obvious or significant pain HEAD: Atraumatic. Normocephalic. No temporal or scalp tenderness. EYES: Pupils equal round and reactive. Extraocular motions intact. No scleral icterus. No injection or drainage. ENT: Nose without bleeding, purulent drainage or septal hematoma. Throat without erythema, tonsillar hypertrophy or exudate. Uvula midline. Airway patent. NECK: Trachea midline. No JVD or lymphadenopathy. Supple, nontender, no meningeal signs. CARDIOVASCULAR: Regular rate and rhythm without murmurs, gallops, or rubs. RESPIRATORY: Clear to auscultation. Breath sounds equal bilaterally. No wheezes, rales, or rhonchi. GASTROINTESTINAL: Abdomen soft, non-tender, nondistended. No hepato-splenomegaly, or palpable masses. No guarding. EXTREMITIES: Left medial foot with significant erythema and edema, large open wound with minimal drainage. This wound is insensate and has a large deep central opening. BACK: Nontender without deformity or crepitance. No flank tenderness. NEURO: AOx3. SKIN: see above Initial Vital Signs Initial Vital Signs: Vital Signs Temperature 97.6 F 08/20/18 14:30 Pulse Rate 103 H 08/20/18 14:30 Respiratory Rate 21 08/20/18 14:30 Blood Pressure 137/85 08/20/18 14:30 Pulse Oximetry 94 08/20/18 14:30 Course Orders Ordered: ED Orders 08/20/18 14:30 Wound Culture and Gram Stain Stat 08/20/18 14:31 XR foot LT min 3V Stat 08/20/18 14:35 Basic Metabolic Panel Stat C-Reactive Protein Quant Stat Complete Blood Count AUTO DIFF Stat Erythrocyte Sedimentation Rate Stat Lactate (Lactic Acid) Stat Procalcitonin Stat 08/20/18 15:00 Blood Culture Stat 08/20/18 16:43 Education, smoking cessation ONGOING Acetaminophen (Tylenol) 650 mg PO Q6HR PRN PRN Reason: As Needed for Fever/Mild Pain Calcium Carbonate (Tums) 1,000 mg PO Q4HR PRN PRN Reason: Dyspepsia Enoxaparin Sodium (Lovenox) 40 mg SUBCUT DAILY NACHO Sodium Chloride (Normal Saline 0.9%) 1,000 mls @ 125 mls/hr IV CONT NACHO Last Admin: 08/20/18 16:04 Dose: 125 mls/hr Ibuprofen (Advil) 600 mg PO Q6HR PRN PRN Reason: As Needed for Fever/Mild Pain Lorazepam (Ativan) 0.5 mg PO Q6HR PRN PRN Reason: Anxiety Ondansetron HCl (Zofran) 4 mg IV Q8HR PRN PRN Reason: Nausea And Vomiting Ondansetron HCl (Zofran Odt) 4 mg PO Q8HR PRN PRN Reason: Nausea And Vomiting Discontinued Medications Ampicillin Sodium/Sulbactam (Sodium 3 gm/ Sodium Chloride) 100 mls @ 100 mls/hr IV NOW ONE Stop: 08/20/18 14:32 Last Infusion: 08/20/18 15:41 Dose: 0 mls/hr Infusion: 08/20/18 15:40 Dose: 0 mls/hr Admin: 08/20/18 15:03 Dose: 100 mls/hr Vancomycin HCl 1,250 mg/ (Sodium Chloride) 250 mls @ 250 mls/hr IV NOW ONE Stop: 08/20/18 14:32 Last Admin: 08/20/18 16:04 Dose: 250 mls/hr Consultations Consultation #1: call to Dr. Morales whom is happy to have patient back on her service Time: 14:46 Vital Signs - 8 hr 08/20/18 14:30 08/20/18 15:20 08/20/18 15:41 Temperature 97.6 F Pulse Rate 103 H 96 H 96 H Respiratory Rate 21 17 17 Blood Pressure 137/85 133/91 H Blood Pressure [Right Arm] 133/91 H Pulse Oximetry 94 99 99 08/20/18 16:05 Temperature 97.8 F Pulse Rate 96 H Respiratory Rate 18 Blood Pressure 135/82 Blood Pressure [Right Arm] Pulse Oximetry 95 MDM - Wound/Laceration Lab Data Result diagrams: 08/20/18 14:35 08/20/18 14:35 Lab Results 08/20/18 08/20/18 08/20/18 Range/Units 14:35 14:35 14:35 WBC 8.6 (4.5-11.0) X10^3/uL RBC 4.36 L (4.5-5.9) X10^6/uL Hgb 12.9 L (13.5-17.5) g/dL Hct 38.7 L (41-53) % MCV 88.6 (80-100) fL MCH 29.6 (26-34) PG MCHC 33.4 (30-36) % RDW 15.4 H (11.6-14.8) % Plt Count 252 (150-400) X10^3/uL Neut % (Auto) 75.2 H (50-75) % Lymph % (Auto) 13.6 L (25-40) % Bailey % (Auto) 6.9 (3-14) % Eos % (Auto) 3.4 (2-4) % Baso % (Auto) 0.9 (0-2) % Neut # (Auto) 6500 (7806-3253) /uL Lymph # (Auto) 1200 (2194-9731) /uL Bailey # (Auto) 600 (0-900) /uL Eos # (Auto) 300 (0-450) /uL Baso # (Auto) 100 (0-100) /uL ESR 25 H (0-15) MM/HR Sodium 138 (137-145) mmol/L Potassium 4.5 (3.4-5.1) mmol/L Chloride 104 (98-107) mmol/L Carbon Dioxide 26 (22-32) mmol/L BUN 16 (9-20) mg/dL Creatinine 0.90 (0.66-1.25) mg/dL Estimated GFR > 60.0 (>60) mL/min BUN/Creatinine Ratio 17.8 (6-22) Glucose 194 H (70-100) mg/dL Lactate (0.7-2.1) mmol/L Calcium 9.1 (8.4-10.2) mg/dL C-Reactive Protein (<1.0) mg/dL Procalcitonin < 0.05 (<0.5) ng/mL 08/20/18 08/20/18 Range/Units 14:35 14:35 WBC (4.5-11.0) X10^3/uL RBC (4.5-5.9) X10^6/uL Hgb (13.5-17.5) g/dL Hct (41-53) % MCV (80-100) fL MCH (26-34) PG MCHC (30-36) % RDW (11.6-14.8) % Plt Count (150-400) X10^3/uL Neut % (Auto) (50-75) % Lymph % (Auto) (25-40) % Bailey % (Auto) (3-14) % Eos % (Auto) (2-4) % Baso % (Auto) (0-2) % Neut # (Auto) (5796-1017) /uL Lymph # (Auto) (9486-4975) /uL Bailey # (Auto) (0-900) /uL Eos # (Auto) (0-450) /uL Baso # (Auto) (0-100) /uL ESR (0-15) MM/HR Sodium (137-145) mmol/L Potassium (3.4-5.1) mmol/L Chloride (98-107) mmol/L Carbon Dioxide (22-32) mmol/L BUN (9-20) mg/dL Creatinine (0.66-1.25) mg/dL Estimated GFR (>60) mL/min BUN/Creatinine Ratio (6-22) Glucose (70-100) mg/dL Lactate 0.9 (0.7-2.1) mmol/L Calcium (8.4-10.2) mg/dL C-Reactive Protein 4.2 H (<1.0) mg/dL Procalcitonin (<0.5) ng/mL Discharge Plan Departure Patient Disposition: Admitted As Inpatient Clinical Impression: Diabetic foot ulcers Qualifiers: Diabetic foot ulcer location: midfoot Diabetes mellitus type: type 1 Laterality: left Non-pressure ulcer stage: with muscle involvement without evidence of necrosis Qualified Code(s): E10.621 - Type 1 diabetes mellitus with foot ulcer Discharge Date/Time: 08/20/18 15:42 Interventions: ED Discharge Assessment Last Done: 08/20/18 15:41 Referrals: Madeline Morales DO [Primary Care Provider] - Admit Date/Time: 08/20/18 15:14 Admit Provider: Madeline Morales
--- NOTE | 2018-08-20 14:40 | PC.NURSE ---
Bandage placed by wound care removed by this edrn at this time.
[2018-08-20 14:45] LABS: Add Manual Diff / Slide Review NO; Basophils Absolute Auto 100 /uL (0-100); Basophils Percent Auto 0.9 % (0-2); Eosinophils Absolute Auto 300 /uL (0-450); Eosinophils Percent Auto 3.4 % (2-4); Hematocrit 38.7 % (41-53); Hemoglobin 12.9 g/dL (13.5-17.5); Lymphocytes Absolute Auto 1200 /uL (1100-4500); Lymphocytes Percent Auto 13.6 % (25-40); Mean Corpuscular HGB Conc 33.4 % (30-36); Mean Corpuscular Hemoglobin 29.6 PG (26-34); Mean Corpuscular Volume 88.6 fL (80-100); Monocytes Absolute Auto 600 /uL (0-900); Monocytes Percent Auto 6.9 % (3-14); Neutrophils Absolute Auto 6500 /uL (1500-7000); Neutrophils Percent Auto 75.2 % (50-75); Platelet Count 252 X10^3/uL (150-400); Red Blood Cell Count 4.36 X10^6/uL (4.5-5.9); Red Cell Distribution Width 15.4 % (11.6-14.8); White Blood Cell Count 8.6 X10^3/uL (4.5-11.0)
[2018-08-20 15:01] LABS: BUN Creatinine Ratio 17.8 (6-22); Blood Urea Nitrogen 16 mg/dL (9-20); Calcium 9.1 mg/dL (8.4-10.2); Carbon Dioxide 26 mmol/L (22-32); Chloride 104 mmol/L (98-107); Estimated Glomerular Filt Rate > 60.0 mL/min (>60); Glucose 194 mg/dL (70-100); HEMOLYSIS < 15 (0-50); Lactate (Lactic Acid) 0.9 mmol/L (0.7-2.1); Potassium 4.5 mmol/L (3.4-5.1); Sodium 138 mmol/L (137-145)
[2018-08-20] MEDS: AMPICILLIN/SULBACTAM 3 GM 3 GM in SODIUM CHLORIDE 0.9% 100 ML IV (15:03)
[2018-08-20 15:16] LABS: C-Reactive Protein Quant 4.2 mg/dL (<1.0)
--- NOTE | 2018-08-20 15:17 | PC.NURSE ---
At this time patient began arguing with me about antibiotic order because that's not the one I had last time. I spoke with Dr. Loza who states he reviewed the previous visits and states he was started on unasyn and vanco and then they switched after the cultures came back. I explained this to patient and he continued to argue with him. I again explained the purpose of broad spectrum antibiotics. He agreed to allow me to start the unasyn and then began asking me the rates of the medications. I told him the vanco would run at 250ml/hr. patient again became upset and began arguing with me that that rate is way too slow, I did it way faster at [facility]. I had to argue with the nurse's there but then they eventually increased the rate to what I wanted. I explained to him that the doctor had ordered the rate to be at 250ml/hr and that that was the rate we would run it at. he became more and more aggravated and demanded to speak to the doctor. Dr. Loza at bedside arguing with patient about the same things.
[2018-08-20 15:20] VITALS: BP 133/91; PULSE 96; RESP 17; O2SAT 99
[2018-08-20 15:22] LABS: Erythrocyte Sedimentation Rate 25 MM/HR (0-15)
[2018-08-20 15:39] LABS: Procalcitonin < 0.05 ng/mL (<0.5)
[2018-08-20 15:41] VITALS: BP 133/91; PULSE 96; RESP 17; O2SAT 99
[2018-08-20 15:46] VITALS: BMI 36.0
[2018-08-20] MEDS: SODIUM CHLORIDE 0.9% 1,000 ML 125 ML IV (16:04)
[2018-08-20] MEDS: VANCOMYCIN 1,250 MG in SODIUM CHLORIDE 0.9% 250 ML IV (16:04)
[2018-08-20 16:05] VITALS: BP 135/82; PULSE 96; RESP 18; TEMP 36.6; O2SAT 95
--- NOTE | 2018-08-20 17:37 | PC.NURSE ---
Addendum entered by Windy Schreiber R.N. 08/20/18 19:09: Pt out in hallway in wheelchair. Agitated. Pressured nonstop continual speech. Expresses confusion about wound vac being removed in wound clinic today and not replaced. Questions need for iv antibiotics as states heard from infectious disease personnel does not have infection. Questions when wound culture and labs will be available. Security, primary RN, and supervisor [employer], Lu, as well as SERVICE ATTENDANT all present as pt is in hallway next to [place] nurse's station having this dialogue/monologue. Pt is fully dressed. Expresses multiple times desires to leave. This sign writer letterer or painter and primary RN, Alice, explain several times to pt plan for care this evening and allow pt to verbalize concerns. Pt's speech is circular; continually repeating self. Requests waterproof dressing be placed on left foot. Pt currently has large allevyn dressing in place and states desires for this to be removed as adhesive is not adherring. Primary RN, Alice, on telephone with on-call provider to explain scenario in hallway and inquire about wound vac per pt request. Pt was instructed to return to room while dressing supplies are obtained. Upon this sign writer letterer or painter's return to room 204 (pt's admission room), pt at sink rinsing out t-shirt and continues with pressured speech. I gotta get out of here. IV left ac dc'd intact. Vancomycin iv has infused. Pt is explicit in requests for dressing to left foot. Cleansed left medial foot wound with normal saline soaked gauze x 2 and dried. Yellow slough is present on wound bed. No odor. Covered with nonadherent telfa and bulky 4 x 4 gauze in which pt dictates exact amounts of gauze to be used. Secured with kerlix and taped. Pt states this will not hold. Requests securing device to foot to hold dressing. Wrapped kerlix with coban snugly enough to secure, but leaving circulation intact and not compromised. Exposed toes are warm to touch and pink in color. Cautioned pt about rewrapping with kerlix and coban to keep loosely secured to allow for adequate circulation. Circular open area to plantar aspect of left foot covered with folded 4 x 4 gauge per pt request and secured as per above. Pt puts self in wheelchair and left hospital under own power after signing AMA document. Saw pt into elevator 2nd floor nurse's station. Left hospital in stable condition with all personal effects accounted for. Original Note: Pt arrives from E.R. via stretcher awake, alert and able to transfer self from stretcher to bed. Open nondraining ulcer to left medial foot. Pt admits to neuropathy and denies pain to foot. Dry, scabbed and abraded skin to extremities. IV antibiotics infusing to left ac iv site without difficulty. Pt has multiple requests and questions of staff. Dr. Morales in to see patient as pt was encouraged to share concerns/questions with .
--- NOTE | 2018-08-20 18:06 | PM.HP.1 ---
History of Present Illness Date Patient Seen: 08/20/18 Time Patient Seen: 17:00 Chief complaint: Left foot infection Narrative: Patient is a 58-year-old man with uncontrolled type 2 diabetes, severe diabetic neuropathy, chronic left left foot ulcer, and tobacco use. He was sent to the ER from the wound care clinic today due to concern for recurrent osteomyelitis of his left foot wound. He was hospitalized 06/07/18-06/29/18 for osteomyelitis. During that admission he underwent irrigation debridement and bone biopsy with Dr. Mendosa as well as wound VAC placement. Wound cultures grew MRSA, Klebsiella and group B strep. He was treated with vancomycin and cefazolin per Infectious Disease. He eventually discharged to [facility] in [place] for ongoing IV antibiotics (total of 6 weeks) and wound care. Patient reportedly signed himself out Against Medical Advice and he went directly from [facility] to the wound care clinic at [facility] on 08/16/18. He reportedly followed up in the Wound Care Clinic on 08/18/18 and had a wound VAC placed. He insists that when the wound VAC was placed a different wipe was used to apply the wound VAC. When he followed up today on 08/20/18 the wound VAC was removed and significant erythema noted surrounding the wound. He insists the erythema is due to the adhesive wipe rather than infection. He feels well and does not want to be in the hospital. Patient states he saw Infectious Disease yesterday at [facility] and was told to finish his 10 more days of Bactrim then stop. His labs were reportedly good though not available at this time. He believes he has an appointment coming up with Dr. Mendosa and states he followed up once since his discharge from here with Dr. Mendosa. In the ER labs and cultures were collected. X-ray did not show evidence of osteomyelitis though MRI was recommended. Patient is admitted for IV antibiotics and further evaluation for possible recurrent osteomyelitis. Patient History Medical History Chronic diabetic ulcer of foot determined by examination (Chronic) Diabetes mellitus (Chronic) Presence of surgical screw in left hand (Chronic) CTS (carpal tunnel syndrome) (Resolved) Surgical History History of carpal tunnel release (Resolved) History of hand surgery (Resolved) History of umbilical hernia repair (Resolved) Status post left foot surgery (Resolved) Status post left foot surgery (Resolved) Family History Father Diabetes mellitus Mother No problems noted. Social History household members: none Smoking Status: Current every day smoker alcohol intake: former Family & Social History Family History Father Diabetes mellitus Mother No problems noted. Social History: household members none Prior Living Arrangements Homeless Safety & Behavioral: Feels Safe in Current Yes Environment Been Physically Hurt or No Threatened By a Person Suicidal Ideation Description None Suicide Plan Description No Plan Tobacco & Substance use: Tobacco type cigarettes Smoking Status Current every day smoker alcohol intake former alcohol intake frequency other Substance Use Type does not use Meds Home Medications Medication Instructions Recorded Confirmed Type albuterol sulfate [Ventolin HFA] 2 puff INH RTQ4HR PRN #1 g 06/29/18 08/20/18 Rx insulin aspart U-100 [Novolog 0 unit SUBCUT ACHS #1 ml 06/29/18 08/20/18 Rx Flexpen U-100 Insulin] metformin [Glucophage] 1,000 mg PO BIDWM #60 tab 06/29/18 08/20/18 Rx acetaminophen 975 mg PO Q6HR PRN 08/20/18 08/20/18 History insulin glargine [Lantus Solostar 30 unit SUBCUT BID 08/20/18 08/20/18 History U-100 Insulin] melatonin 9 mg PO BEDTIME PRN 08/20/18 08/20/18 History sulfamethoxazole-trimethoprim 600 mg PO BID 08/20/18 08/20/18 History [Bactrim] Allergies Allergy/AdvReac Type Severity Reaction Status Date / Time hydrocodone Allergy Mild ITCHING Verified 06/07/18 15:51 oxycodone [OXYCODONE] Allergy Mild ITCHING Verified 06/07/18 15:51 codeine AdvReac Mild STOMACH Verified 06/07/18 15:51 UPSET Exam Vital Signs (past 8 hours): - 08/20/18 14:30 08/20/18 15:20 08/20/18 15:41 Temperature 97.6 F Pulse Rate 103 H 96 H 96 H Respiratory Rate 21 17 17 Blood Pressure 137/85 133/91 H Blood Pressure [Right Arm] 133/91 H Pulse Oximetry 94 99 99 08/20/18 16:05 Temperature 97.8 F Pulse Rate 96 H Respiratory Rate 18 Blood Pressure 135/82 Blood Pressure [Right Arm] Pulse Oximetry 95 Oxygen Delivery Method Room Air Narrative Exam Narrative: General: Disheveled older man with poor hygiene, appears older than stated age. Speaks rapidly and appears agitated. HEENT: NCAT, EOMI, moist oral mucosa, edentulous CV: Regular rate and rhythm, no murmurs, rubs or gallops Lungs: CTAB, no wheezes, rales, or rhonchi Abdomen: Obese abdomen Extremities: On the left foot is a large several cm ulceration with surrounding erythema and edema, granulation tissue within the wound and minimal clear drainage from a hole in the middle of the wound. No exudate. No lower extremity edema. Neuro: Absent sensation of the left foot. Objective Imaging Foot x-ray: Radiologist's impression: PROCEDURE: XR FOOT LT MIN 3V INDICATIONS: osteo? open wound TECHNIQUE: 3 views of the foot were acquired. COMPARISON: [facility], , XR FOOT LT MIN 3V, 06/10/2018, 10:34. FINDINGS: Bones: No displaced fractures or dislocations are evident involving the osseous structures of the left foot. No suspicious osseous lesions are identified. Partial bony fusion involving the 2nd and 3rd metatarsals is evident, similar to the prior study. Severe degenerative changes of the midfoot and moderate degenerative changes of the forefoot and hindfoot are similar to the previous exam. No obvious osseous erosions involving the metatarsal heads is appreciated when compared to the prior study. Soft tissues: Small skin defect is identified along the plantar aspect of the forefoot underlying the metatarsal heads. No radiopaque foreign bodies are appreciated. IMPRESSION: 1. No definitive osseous erosions to suggest osteomyelitis. MRI with intravenous contrast would be helpful to more definitively evaluate for osteomyelitis, if indicated. 2. Moderate to severe degenerative changes of the left foot. Dictated by: Cm Purcell M.D. on 08/20/2018 at 13:56 Approved by: Cm Purcell M.D. on 08/20/2018 at 13:59 Labs Result Diagrams: 08/20/18 14:35 08/20/18 14:35 Labs: Laboratory Results - last 24 hr 08/20/18 08/20/18 08/20/18 14:35 14:35 14:35 WBC 8.6 RBC 4.36 L Hgb 12.9 L Hct 38.7 L MCV 88.6 MCH 29.6 MCHC 33.4 RDW 15.4 H Plt Count 252 Neut % (Auto) 75.2 H Lymph % (Auto) 13.6 L Kay % (Auto) 6.9 Eos % (Auto) 3.4 Baso % (Auto) 0.9 Neut # (Auto) 6500 Lymph # (Auto) 1200 Kay # (Auto) 600 Eos # (Auto) 300 Baso # (Auto) 100 ESR 25 H Sodium 138 Potassium 4.5 Chloride 104 Carbon Dioxide 26 BUN 16 Creatinine 0.90 Estimated GFR > 60.0 BUN/Creatinine Ratio 17.8 Glucose 194 H Lactate Calcium 9.1 C-Reactive Protein Procalcitonin < 0.05 08/20/18 08/20/18 14:35 14:35 WBC RBC Hgb Hct MCV MCH MCHC RDW Plt Count Neut % (Auto) Lymph % (Auto) Kay % (Auto) Eos % (Auto) Baso % (Auto) Neut # (Auto) Lymph # (Auto) Kay # (Auto) Eos # (Auto) Baso # (Auto) ESR Sodium Potassium Chloride Carbon Dioxide BUN Creatinine Estimated GFR BUN/Creatinine Ratio Glucose Lactate 0.9 Calcium C-Reactive Protein 4.2 H Procalcitonin Assessment & Plan Assessment & Plan narrative: Patient is a 50-year-old man with uncontrolled type 2 diabetes, diabetic neuropathy, chronic left foot ulcer and tobacco use with recent admission for osteomyelitis now with concerns for recurrent osteomyelitis. Admission labs were reassuring. White count was normal however ESR and CRP were elevated. Patient is afebrile with normal vitals. Blood cultures and wound culture were obtained in the ER. Left foot ulcer, concern for osteomyelitis - Continue vancomycin and Unasyn - MRI to evaluate for osteomyelitis, will likely need orthopedic consult after MRI has resulted - Last visit he was followed by Dr. Mendosa who performed his irrigation debridement Diabetes - Continue Lantus 30 units b.i.d. - Continue metformin - Monitor blood sugars, will cover with moderate sliding scale - Diabetic diet COPD - No acute exacerbation, albuterol as needed Tobacco use - Nicotine patch Irritability - Patient can be quite difficult at times due to severe irritation. He understands the treatment plan and is willing to stay while awaiting culture an MRI results. Lorazepam is available if needed. Diet: Diabetic diet DVT prophylaxis: Lovenox and SCDs Code status: Full code Disposition: Anticipate several days in in the hospital for IV antibiotics as well as results of cultures and MRI. Patient is homeless so will appreciate discharge planning support. Quality VTE Deep Vein Thrombosis/Pulmonary Embolism Present on Admission: No
--- NOTE | 2018-08-20 19:13 | PC.NURSE ---
Pt was admitted 1600 and left AMA @ 1905. Pt was yelling in his room and report he could not wait for the results blood culture and ankle culture. he has Ortho consult ordered and MRI for tomorrow.Vanco and unasyn infused. Dr. Gray aware pt went AMA.
== END 2018-08-20 19:05 | disposition left against medical advice (07) | DRG 380 ==
LOC: ED 14:46 → AC 15:15
PROVIDERS: Admitting Provider Family Medicine; Emergency Provider Emergency Medicine; PCP Family Medicine; Visit Provider Family Medicine
DX: E11.621 Type 2 diabetes mellitus with foot ulcer (principal); L97.425 Non-pressure chronic ulcer of left heel and midfoot with muscle involvement without evidence of necrosis; Z79.4 Long term (current) use of insulin; J44.9 Chronic obstructive pulmonary disease, unspecified; F17.210 Nicotine dependence, cigarettes, uncomplicated; R45.4 Irritability and anger
CPT/HCPCS: 36415; 36591; 73630; 80048; 82962; 83605; 84145; 85025; 85651; 86140; 87040; 87070; 87077; 87186; 87205; 96365; 99214; 99223; 99283; 99284; J0295

== ENCOUNTER → 2018-08-30 14:27 | Outpatient (CLI) | payer OTHER, MEDICAID, SELFPAY ==
[2018-08-24 15:53] VITALS: BMI 36.0
[2018-08-30 14:45] LABS: Add Manual Diff / Slide Review NO; Basophils Absolute Auto 100 /uL (0-100); Basophils Percent Auto 0.9 % (0-2); Eosinophils Absolute Auto 300 /uL (0-450); Eosinophils Percent Auto 3.6 % (2-4); Hematocrit 43.1 % (41-53); Hemoglobin 14.6 g/dL (13.5-17.5); Lymphocytes Absolute Auto 1900 /uL (1100-4500); Lymphocytes Percent Auto 20.6 % (25-40); Mean Corpuscular HGB Conc 33.9 % (30-36); Mean Corpuscular Volume 88.4 fL (80-100); Monocytes Absolute Auto 700 /uL (0-900); Monocytes Percent Auto 7.3 % (3-14); Neutrophils Absolute Auto 6200 /uL (1500-7000); Neutrophils Percent Auto 67.6 % (50-75); Platelet Count 239 X10^3/uL (150-400); Red Blood Cell Count 4.88 X10^6/uL (4.5-5.9); Red Cell Distribution Width 15.6 % (11.6-14.8); White Blood Cell Count 9.2 X10^3/uL (4.5-11.0)
[2018-08-30 14:53] LABS: Hemoglobin A1C% w Est Avg Glu 7.6 % (4.0-6.0)
[2018-08-30 15:09] LABS: Erythrocyte Sedimentation Rate 18 MM/HR (0-15)
[2018-08-30 15:18] LABS: Alanine Aminotransferase 20 IU/L (21-72); Albumin Globulin Ratio 1.3 (1.0-2.8); Alkaline Phosphatase 83 U/L (38-126); Aspartate Aminotransferase 12 IU/L (17-59); BUN Creatinine Ratio 25.7 (6-22); Bilirubin Total 0.5 mg/dL (0.2-1.3); Blood Urea Nitrogen 18 mg/dL (9-20); C-Reactive Protein Quant 1.6 mg/dL (<1.0); Calcium 9.4 mg/dL (8.4-10.2); Carbon Dioxide 27 mmol/L (22-32); Chloride 102 mmol/L (98-107); Estimated Glomerular Filt Rate > 60.0 mL/min (>60); Globulin 3.2 g/dL (1.7-4.1); Glucose 250 mg/dL (70-100); HEMOLYSIS < 15 (0-50); Potassium 4.4 mmol/L (3.4-5.1); Sodium 138 mmol/L (137-145); Total Protein 7.2 g/dL (6.3-8.2)
== END ==
PROVIDERS: PCP Family Medicine; Visit Provider Family Medicine
DX: E11.621 Type 2 diabetes mellitus with foot ulcer (principal); L97.529 Non-pressure chronic ulcer of other part of left foot with unspecified severity; L97.509 Non-pressure chronic ulcer of other part of unspecified foot with unspecified severity
CPT/HCPCS: 36415; 80053; 83036; 85025; 85651; 86140; 87070; 87075; 87205

== ENCOUNTER → 2018-08-30 20:21 | Outpatient (CLI) | payer OTHER, MEDICAID, SELFPAY ==
[2018-08-24 15:53] VITALS: BMI 36.0
--- NOTE | 2018-08-30 20:24 | DI.MRI.S_ITS ---
PROCEDURE: MRFOOT LT WO CON INDICATIONS: diabetic foot ulcer, u/o osteo TECHNIQUE: Noncontrast sagittal T1 spin echo and T2 fast spin echo with fat saturation, long-axis T1 spin echo and T2 fast spin echo with fat saturation, short-axis T1 spin echo and T2 fast spin echo with fat saturation through the forefoot. COMPARISON: [facility], MR, MR FOOT LT WO CON, 06/08/2018, 10:27. FINDINGS: Image quality: Excellent. Bones and joints: Alignment of left foot is not significantly changed from previous study with moderate to severe osteoarthritic changes throughout visualized mid foot and forefoot most prominent involving the tarsometatarsal joints with prominent marginal osteophyte formation. There is marrow edema involving the inferior portion of the medial cuneiform with subtle cortical erosion in its plantar and medial cortex concerning for osteomyelitis in this area. Previously described edema involving the first metatarsal head and adjacent first proximal phalangeal base with cortical irregularity along MTP joint is again seen, which may represent residual osteomyelitis in this area. No other area of abnormal marrow signal or bony erosive changes are. No gross intraosseous lesions. Soft tissues: There is full-thickness ulceration involving the plantar and medial aspect of the medial cuneiform. Previously noted ulceration involving the plantar aspect of first MTP joint is again seen. No drainable fluid collection is seen in medial left the soft tissue. The visualized plantar foot muscles demonstrate normal signal and bulk. Visualized flexor and extensor tendons appear intact, without tenosynovitis. The distal insertions of the peroneus brevis and longus tendons appear intact. The principal Lisfranc ligament appears intact. No soft tissue ganglion cysts or bursal fluid collections. Sagittal images demonstrate no evidence for plantar plate tears. IMPRESSION: 1. Again noted is suggestion of osteomyelitis involving the first MTP joint with small ulceration of the plantar aspect of the joint. Previously described fluid collection along the medial aspect of first MTP joint is no longer present. 2. Ulceration is again seen over plantar and medial aspect of medial cuneiform with no discrete drainable fluid collection. There is suggestion of osteomyelitis involving adjacent plantar medial cortex of medial cuneiform. 3. Osteoarthritic changes throughout mid foot and forefoot with midfoot collapse suggestive of Charcot's arthropathy not significantly changed from prior study. Dictated by: Arnaldo Mendoza M.D. on 08/31/2018 at 14:18 Approved by: Arnaldo Mendoza M.D. on 08/31/2018 at 14:27
== END ==
PROVIDERS: PCP Family Medicine; Visit Provider Family Medicine
DX: E11.621 Type 2 diabetes mellitus with foot ulcer (principal); L97.529 Non-pressure chronic ulcer of other part of left foot with unspecified severity; M19.072 Primary osteoarthritis, left ankle and foot
CPT/HCPCS: 36415; 73718; 80053; 83036; 85025; 85651; 86140; 87070; 87075; 87077; 87147; 87186; 87205

== ENCOUNTER → 2018-09-17 14:40 | Outpatient (CLI) | payer OTHER, MEDICAID, SELFPAY ==
[2018-08-24 15:53] VITALS: BMI 36.0
[2018-09-17 16:01] LABS: Add Manual Diff / Slide Review NO; Basophils Absolute Auto 100 /uL (0-100); Basophils Percent Auto 0.8 % (0-2); Eosinophils Absolute Auto 200 /uL (0-450); Eosinophils Percent Auto 3.7 % (2-4); Hematocrit 40.9 % (41-53); Hemoglobin 13.8 g/dL (13.5-17.5); Lymphocytes Absolute Auto 1400 /uL (1100-4500); Lymphocytes Percent Auto 21.5 % (25-40); Mean Corpuscular HGB Conc 33.8 % (30-36); Mean Corpuscular Hemoglobin 29.8 PG (26-34); Mean Corpuscular Volume 88.2 fL (80-100); Monocytes Absolute Auto 500 /uL (0-900); Monocytes Percent Auto 8.3 % (3-14); Neutrophils Absolute Auto 4200 /uL (1500-7000); Neutrophils Percent Auto 65.7 % (50-75); Platelet Count 262 X10^3/uL (150-400); Red Blood Cell Count 4.64 X10^6/uL (4.5-5.9); Red Cell Distribution Width 15.4 % (11.6-14.8); White Blood Cell Count 6.5 X10^3/uL (4.5-11.0)
[2018-09-17 16:15] LABS: BUN Creatinine Ratio 20.9 (6-22); Blood Urea Nitrogen 23 mg/dL (9-20); C-Reactive Protein Quant 1.5 mg/dL (<1.0); Calcium 9.3 mg/dL (8.4-10.2); Carbon Dioxide 25 mmol/L (22-32); Chloride 102 mmol/L (98-107); Estimated Glomerular Filt Rate > 60.0 mL/min (>60); Glucose 323 mg/dL (70-100); HEMOLYSIS < 15 (0-50); Potassium 4.5 mmol/L (3.4-5.1); Sodium 139 mmol/L (137-145)
== END ==
PROVIDERS: PCP Family Medicine; Visit Provider Family Medicine
DX: E11.621 Type 2 diabetes mellitus with foot ulcer (principal); L97.509 Non-pressure chronic ulcer of other part of unspecified foot with unspecified severity
CPT/HCPCS: 36415; 80048; 85025; 86140

== ENCOUNTER → 2018-09-21 13:42 | Outpatient (CLI) | payer OTHER, MEDICAID, SELFPAY ==
[2018-08-24 15:53] VITALS: BMI 36.0
[2018-09-21 13:57] LABS: Add Manual Diff / Slide Review NO; Basophils Absolute Auto 100 /uL (0-100); Basophils Percent Auto 0.9 % (0-2); Eosinophils Absolute Auto 100 /uL (0-450); Eosinophils Percent Auto 1.5 % (2-4); Hematocrit 42.5 % (41-53); Hemoglobin 14.4 g/dL (13.5-17.5); Lymphocytes Absolute Auto 1300 /uL (1100-4500); Lymphocytes Percent Auto 13.6 % (25-40); Mean Corpuscular HGB Conc 33.8 % (30-36); Mean Corpuscular Hemoglobin 29.7 PG (26-34); Mean Corpuscular Volume 87.6 fL (80-100); Monocytes Absolute Auto 600 /uL (0-900); Monocytes Percent Auto 5.9 % (3-14); Neutrophils Absolute Auto 7700 /uL (1500-7000); Neutrophils Percent Auto 78.1 % (50-75); Platelet Count 253 X10^3/uL (150-400); Red Blood Cell Count 4.85 X10^6/uL (4.5-5.9); Red Cell Distribution Width 15.7 % (11.6-14.8); White Blood Cell Count 9.9 X10^3/uL (4.5-11.0)
[2018-09-21 14:16] LABS: Erythrocyte Sedimentation Rate 28 MM/HR (0-15)
[2018-09-21 15:42] LABS: BUN Creatinine Ratio 15.7 (6-22); Blood Urea Nitrogen 11 mg/dL (9-20); C-Reactive Protein Quant 7.3 mg/dL (<1.0); Calcium 9.9 mg/dL (8.4-10.2); Carbon Dioxide 28 mmol/L (22-32); Chloride 99 mmol/L (98-107); Estimated Glomerular Filt Rate > 60.0 mL/min (>60); Glucose 246 mg/dL (70-100); HEMOLYSIS < 15 (0-50); Potassium 4.3 mmol/L (3.4-5.1); Sodium 138 mmol/L (137-145)
== END ==
PROVIDERS: PCP Family Medicine; Visit Provider Family Medicine
DX: E11.621 Type 2 diabetes mellitus with foot ulcer (principal); L97.509 Non-pressure chronic ulcer of other part of unspecified foot with unspecified severity
CPT/HCPCS: 36415; 80048; 85025; 85651; 86140

== ENCOUNTER → 2018-09-28 10:12 | Outpatient (CLI) | payer OTHER, MEDICAID, SELFPAY ==
[2018-08-24 15:53] VITALS: BMI 36.0
[2018-09-28 10:57] LABS: Add Manual Diff / Slide Review NO; Basophils Absolute Auto 0 /uL (0-100); Basophils Percent Auto 0.8 % (0-2); Eosinophils Absolute Auto 0 /uL (0-450); Eosinophils Percent Auto 0.7 % (2-4); Hematocrit 41.5 % (41-53); Hemoglobin 13.9 g/dL (13.5-17.5); Lymphocytes Absolute Auto 1000 /uL (1100-4500); Lymphocytes Percent Auto 18.9 % (25-40); Mean Corpuscular HGB Conc 33.5 % (30-36); Mean Corpuscular Hemoglobin 29.2 PG (26-34); Mean Corpuscular Volume 87.2 fL (80-100); Monocytes Absolute Auto 600 /uL (0-900); Monocytes Percent Auto 11.1 % (3-14); Neutrophils Absolute Auto 3700 /uL (1500-7000); Neutrophils Percent Auto 68.5 % (50-75); Platelet Count 253 X10^3/uL (150-400); Red Blood Cell Count 4.76 X10^6/uL (4.5-5.9); Red Cell Distribution Width 15.7 % (11.6-14.8); White Blood Cell Count 5.5 X10^3/uL (4.5-11.0)
[2018-09-28 11:13] LABS: BUN Creatinine Ratio 21.3 (6-22); Blood Urea Nitrogen 17 mg/dL (9-20); Calcium 8.7 mg/dL (8.4-10.2); Carbon Dioxide 27 mmol/L (22-32); Chloride 98 mmol/L (98-107); Estimated Glomerular Filt Rate > 60.0 mL/min (>60); Glucose 333 mg/dL (70-100); HEMOLYSIS < 15 (0-50); Potassium 4.1 mmol/L (3.4-5.1); Sodium 135 mmol/L (137-145)
[2018-09-28 11:27] LABS: Erythrocyte Sedimentation Rate 44 MM/HR (0-15)
[2018-09-28 11:31] LABS: C-Reactive Protein Quant 12.8 mg/dL (<1.0)
== END ==
PROVIDERS: PCP Family Medicine; Visit Provider Family Medicine
DX: E11.621 Type 2 diabetes mellitus with foot ulcer (principal); E11.9 Type 2 diabetes mellitus without complications; L97.509 Non-pressure chronic ulcer of other part of unspecified foot with unspecified severity
CPT/HCPCS: 36415; 80048; 85025; 85651; 86140

== ENCOUNTER → 2018-10-07 15:58 | Outpatient (CLI) | payer OTHER, MEDICAID, SELFPAY ==
[2018-08-24 15:53] VITALS: BMI 36.0
[2018-10-07 16:24] LABS: Add Manual Diff / Slide Review NO; Basophils Absolute Auto 100 /uL (0-100); Basophils Percent Auto 0.8 % (0-2); Eosinophils Absolute Auto 0 /uL (0-450); Eosinophils Percent Auto 0.3 % (2-4); Hematocrit 49.7 % (41-53); Hemoglobin 16.4 g/dL (13.5-17.5); Lymphocytes Absolute Auto 1300 /uL (1100-4500); Lymphocytes Percent Auto 11.6 % (25-40); Mean Corpuscular Hemoglobin 28.5 PG (26-34); Mean Corpuscular Volume 86.5 fL (80-100); Monocytes Absolute Auto 1000 /uL (0-900); Monocytes Percent Auto 9.2 % (3-14); Neutrophils Absolute Auto 8900 /uL (1500-7000); Neutrophils Percent Auto 78.1 % (50-75); Platelet Count 378 X10^3/uL (150-400); Red Blood Cell Count 5.74 X10^6/uL (4.5-5.9); Red Cell Distribution Width 15.6 % (11.6-14.8); White Blood Cell Count 11.3 X10^3/uL (4.5-11.0)
[2018-10-07 17:00] LABS: BUN Creatinine Ratio 14.8 (6-22); Blood Urea Nitrogen 31 mg/dL (9-20); C-Reactive Protein Quant 2.8 mg/dL (<1.0); Carbon Dioxide 21 mmol/L (22-32); Chloride 92 mmol/L (98-107); Estimated Glomerular Filt Rate 32.6 mL/min (>60); HEMOLYSIS < 15 (0-50); Potassium 4.9 mmol/L (3.4-5.1); Sodium 134 mmol/L (137-145)
[2018-10-07 17:24] LABS: Glucose 494 mg/dL (70-100)
[2018-10-07 18:30] LABS: Erythrocyte Sedimentation Rate 5 MM/HR (0-15)
== END ==
PROVIDERS: PCP Family Medicine; Visit Provider Family Medicine
DX: E11.42 Type 2 diabetes mellitus with diabetic polyneuropathy (principal); E11.621 Type 2 diabetes mellitus with foot ulcer; E11.65 Type 2 diabetes mellitus with hyperglycemia; L97.509 Non-pressure chronic ulcer of other part of unspecified foot with unspecified severity; Z79.4 Long term (current) use of insulin
CPT/HCPCS: 36415; 80048; 85025; 85651; 86140

== ENCOUNTER → 2018-11-18 12:09 | Outpatient (CLI) | payer OTHER, MEDICAID, SELFPAY ==
[2018-10-30 12:38] VITALS: BMI 36.0
[2018-11-18 13:10] LABS: Add Manual Diff / Slide Review NO; Basophils Absolute Auto 100 /uL (0-100); Basophils Percent Auto 0.4 % (0-2); Eosinophils Absolute Auto 300 /uL (0-450); Eosinophils Percent Auto 2.5 % (2-4); Hematocrit 42.3 % (41-53); Lymphocytes Absolute Auto 1900 /uL (1100-4500); Lymphocytes Percent Auto 15.6 % (25-40); Mean Corpuscular HGB Conc 33.2 % (30-36); Mean Corpuscular Hemoglobin 28.4 PG (26-34); Mean Corpuscular Volume 85.4 fL (80-100); Monocytes Absolute Auto 900 /uL (0-900); Monocytes Percent Auto 7.5 % (3-14); Neutrophils Absolute Auto 8800 /uL (1500-7000); Platelet Count 256 X10^3/uL (150-400); Red Blood Cell Count 4.95 X10^6/uL (4.5-5.9); Red Cell Distribution Width 15.9 % (11.6-14.8); White Blood Cell Count 11.9 X10^3/uL (4.5-11.0)
[2018-11-18 13:31] LABS: Erythrocyte Sedimentation Rate 28 MM/HR (0-15)
[2018-11-18 13:47] LABS: Albumin 3.8 g/dL (3.5-5.0); BUN Creatinine Ratio 25.7 (6-22); Blood Urea Nitrogen 18 mg/dL (9-20); Calcium 9.6 mg/dL (8.4-10.2); Carbon Dioxide 27 mmol/L (22-32); Chloride 97 mmol/L (98-107); Estimated Glomerular Filt Rate > 60.0 mL/min (>60); Glucose 294 mg/dL (70-100); HEMOLYSIS < 15 (0-50); Phosphorous 3.8 mg/dL (2.5-4.5); Potassium 4.3 mmol/L (3.4-5.1); Sodium 137 mmol/L (137-145)
[2018-11-18 14:17] LABS: C-Reactive Protein Quant 13.1 mg/dL (<1.0)
== END ==
PROVIDERS: PCP Family Medicine; Visit Provider Orthopaedic Surgery Foot and Ankle Surgery
DX: M86.172 Other acute osteomyelitis, left ankle and foot (principal)
CPT/HCPCS: 36415; 80069; 85025; 85651; 86140

== ENCOUNTER 2018-11-19 13:33 | Inpatient (IN) | payer OTHER, MEDICAID, SELFPAY ==
[2018-10-30 12:38] VITALS: BMI 36.0
[2018-11-19] VITALS (7 sets, daily range): BP systolic 92–148; BP diastolic 52–95; PULSE 72–100; RESP 14–18; TEMP 36.2–36.6; O2SAT 92–98; BMI 32.5; BMI 33.0
--- NOTE | 2018-11-19 15:46 | P.OP.PRE_ITS ---
Pre-operative Note Interval Note History & Physical reviewed/Exam performed by Physician: Yes Changes to H&P: No H&P completed within 30 days and has changed as indicated here:: Patient presents today to the same-day surgery unit initially declining that he was told the procedure would be outpatient after extensive conversation with the patient on in the clinic we had determined that he would come into the hospital for treatment with negative pressure wound therapy and IV antibiotics. I went over this again with the patient in detail. The patient does admit that we talked about this extensively he does state that he was called by the hospital and told it would be outpatient procedure. I explained this may be a detail of the coding specifics for the procedure but the plan has always been admission IV antibiotics negative pressure wound therapy. I have consulted with multiple physicians over the last 24 hours regarding this patient and coordinated care with the patient's primary care physician Dr. Morales while in inpatient he will also have cultures and IV antibiotics recommended by Dr. Shell at [facility] and we have arranged a wound clinic consultation with him at [facility] wound clinic [place] on 11/25 at 9:30 a.m.. Discussed with the patient that we would plan for him is likely to be in the hospital until that Thursday and Thursday and then discharged at that point likely in a wet-to-dry dressing so that he can go to the wound clinic on and be evaluated then. Patient has elected to proceed
--- NOTE | 2018-11-19 15:58 | P.OP_ITS ---
Operative Date/Time/Diagnoses Date of procedure: 11/19/18 Time of procedure: 14:30 Pre-op diagnosis: Diabetic ulcer left midfoot associated with type 2 diabetes with necrosis of bone, osteomyelitis Uncontrolled diabetes, hyperglycemia Post-op diagnosis: same Procedure & Clinicians Procedure: Excisional debridement ulcer left foot CPT code 75662 Wound VAC dressing application 50 sq cm or less CPT code 69739 Same procedure as scheduled: Yes Indications: Patient is a 58-year-old male with uncontrolled diabetes, left Charcot foot and a history of osteomyelitis. The patient has had a chronic left midfoot ulceration and has been getting wound care on this for the patient is at a complicated course and has had decreasing compliance over the last few weeks and multiple so shoe economic difficulties. The patient comes in for his weekly wound check this week and has had a significant change in the appearance of his midfoot ulceration with necrosis of the tissue and exposed bone and increased erythema. This had previously been relatively healthy-looking granulation tissue all be it a stagnated wound. And we have been trying to get approval for a dermal substitute. Regardless the patient has now been indicated for repeat debridement to remove necrotic tissue for new bone biopsies with his presumed osteomyelitis resumption of IV antibiotics and never to reestablish with wound care in [facility]. The patient has previously indeed care with [facility] wound Care. Patient has a very difficult situation and unstable living environment and has left the hospital Against Medical Advice and usp facilities Against Medical Advice on multiple occasions. He has previously being in management with Infectious Disease with [facility] but has also missed of visits to his infectious disease doctor and his primary care doctor within the last month. I have discussed risks benefits alternatives extensively with this patient we had a long conversation in the clinic regarding the patient's situation and potential requirement for additional surgeries and amputation. We talked extensively about the importance of glycemic control offloading and continuity of care. The patient has agreed to come into the hospital on the date of surgery. He did decline hospitalization on the date of the clinic visit. The risks and benefits of the procedure have been discussed with the patient even opportunity to ask questions. The risks of surgery include but are not limited to infection, malunion, nonunion, persistence of pain, damage to nerves and blood vessels, posttraumatic arthritis, DVT, PE, cardiopulmonary complications and need for additional procedures or amputation. The patient expressed a thorough understanding of the risks and benefits of surgery and has elected to proceed. Consent was signed in the office. The inpatient plan of care for the patient is admission postoperatively the patient will be debrided and have a wound VAC in place. He will stay in the hospital over the weekend and get broad-spectrum IV antibiotics cultures will be sent including PCR once these are available Dr. smith done at [facility] infectious Disease will be contacted will recommend appropriate antibiotics. Plan is for VAC change on the floor on Thursday for the patient and then discharged once his antibiotics are set up either Thursday or Thursday at that point the patient will likely be discharged with a wet to dry dressing. He will be seen at a outpatient [facility] wound clinic visit on 11/25 at 9:30 a.m.. I discussed with the patient the utmost importance that the patient keeps this clinic visit and shows up on time. Patient has expressed his understanding and agreement with the plan. Dr. Morales is the patient's PCP and will address his medical issues in the hospital. Surgeon: Radha Mendosa Click Yes if Unassisted: Yes Anesthesia Type: Sedation Operative Notes Findings: Large medial midfoot ulceration with necrotic subcutaneous tissue tracks to bone. Softening of the proximal and plantar medial cuneiform Closure Type: not applicable Specimen(s): other (PCR, microbiology) Prosthetic devices, grafts, tissues, transplants, or devices: Negative pressure wound therapy Estimated Blood Loss (mL): 10 Blood products transfused: none Tourniquet time (min): 0 Procedure in detail: Patient was seen in the preoperative area site of surgery was marked informed consent was confirmed. The pre and perioperative plan were once again discussed with the patient he has agreed to proceed. The risks and benefits of the procedure have been discussed with the patient even opportunity to ask questions. The risks of surgery include but are not limited to infection, malunion, nonunion, persistence of pain, damage to nerves and blood vessels, posttraumatic arthritis, DVT, PE, cardiopulmonary complications and , amputation, need for additional procedures. The patient expressed a thorough understanding of the risks and benefits of surgery and has elected to proceed. Consent was signed in the office. Patient was brought back to the operating room by the anesthesia team. Minimal sedation was administered due to the patient's neuropathy. All bony prominences were padded. The patient was secured to the table. A contralateral SCD was placed. A formal time-out procedure was performed confirming the patient's side and site of surgery presence of informed consent. Antibiotics were held until cultures were taken. No tourniquet was used for this procedure. Attention was turned to the patient's medial ulceration. A large medial midfoot ulcer was demonstrated there was a necrotic tissue and small amount of purulence tracking deep in the middle of the incision towards the proximal aspect. Fifteen blade was utilized to remove the edges of the wound and debride the necrotic fibrinous and granulation tissue down to the exposed medial cuneiform bone. There was a plantar aspect of the medial cuneiform had a softened area that was easily curetted out. There was no deep abscess or pus pocket found. The necrotic tissue was removed. Deep tissue and bone cultures were obtained with a rongeur and osteotome and these were sent for aerobic and anaerobic and Gram stain as well as the PCR test. Once the cultures had been obtained antibiotics were administered. Once all necrotic tissue was debrided back and fresh nice bleeding bone and soft tissues were exposed the wound was irrigated with 6 L of saline using cysto tubing. Hemostasis was achieved. And a negative pressure wound VAC was placed. There was careful aligning of the nunu wound area with the film followed by application of the sponge. An excellent seal was obtained. Final wound size was approximately 6 x 5 cm Drapes were removed and the patient was taken to the recovery area in good condition. All counts were correct. There were no immediate complications from this procedure. Complications: none Post-operative Condition: stable Disposition: PACU Plan for aftercare: Nonweightbearing left lower extremity-or offloading as much as possible to aid with wound healing. Patient is encouraged to use his [place] walker boot. This does not fit with the VAC a postoperative shoe will be issued. The patient has a wheelchair which he is encouraged to use. Keep wound VAC in place. Hospitalization over the weekend broad-spectrum IV antibiotics. Dr. Morales will manage medical problems. Patient will have wound VAC change on the floor on Thursday. Once cultures finalized will be discharged on appropriate antibiotics recommended by Dr. Wiggins at [facility] infectious disease. Patient has follow-up appointment with [facility] wound Care Clinic on 11/25, , 9:30 a.m. plan with patient discharged with wet to dry dressing on date of discharge from [facility] to be seen then and managed at [facility] wound [facility].
[2018-11-19] MEDS: LACTATED RINGERS 1,000 ML 42 ML IV (16:05)
[2018-11-19] MEDS: INSULIN REGULAR 100 UNIT/ML 3 ML VIAL SUBCUT (16:35)
--- NOTE | 2018-11-19 16:44 | SUR.OPER ---
Supine on padded OR bed, head on pillow, arms secured on padded arm boards at <90 degrees abduction, legs uncrossed, safety belt at thigh, tape over blanket over lower legs.
[2018-11-19] MEDS: CEFAZOLIN 2 GM/100 ML FROZ.PIGGY IV (16:55)
[2018-11-19] MEDS: BUPIVACAINE 0.25% (PF) VIAL 30 ML INJ (17:04)
--- NOTE | 2018-11-19 17:19 | PM.CN ---
History of Present Illness Consult details Date Patient Seen: 11/19/18 Chief complaint: EXCISIONAL DEBRIDEMENT Reason for consult: Diabetes Requesting provider: Radha Mendosa Narrative: Patient is a 58-year-old male with uncontrolled type 2 diabetes, chronic left foot diabetic ulcer and Charcot foot, tobacco use and homelessness. He was hospitalized earlier this year for several weeks after debridement of his foot with Dr. Mendosa. He subsequently discharged to residential for prolonged IV antibiotics but ultimately left Against Medical Advice. He was readmitted in August however left AMA again and was subsequently fired by the wound care clinic at [facility]. Over the summer he has been following with Dr. Mendosa for his wound as well as Infectious Disease occasionally. He was receiving regular dressing changes at [facility] until he stopped coming in favor of having dressing changes at the walk in clinic infrequently. Most recently he saw Dr. Mendosa who recommended debridement in the operating room with wound VAC and subsequent outpatient management with wound care in [facility] as well as Infectious Disease. Patient is seen after his procedure today and has no complaints. He agrees to stay in the hospital for the next several days and be compliant with the plan of care. He continues to smoke regularly but states, not much. Requests melatonin for sleep. [facility] Medical History Chronic diabetic ulcer of foot determined by examination (Chronic) CTS (carpal tunnel syndrome) (Resolved) Diabetes mellitus (Chronic) Obstructive lung disease (Acute) Presence of surgical screw in left hand (Chronic) Restrictive lung disease (Acute) Surgical History History of carpal tunnel release (Resolved) History of hand surgery (Resolved) History of umbilical hernia repair (Resolved) Status post incision and drainage (Acute 06/11/18) Status post left foot surgery (Resolved) Status post left foot surgery (Resolved) Family History Father Diabetes mellitus Mother No problems noted. Social History household members: none Smoking Status: Current every day smoker alcohol intake: former Family History Father Diabetes mellitus Mother No problems noted. Social History household members: none Smoking Status: Current every day smoker alcohol intake: former Meds Home Medications and Allergies Home Medications Medication Instructions Recorded Confirmed Type insulin glargine [Lantus Solostar 30 unit SUBCUT BID 08/20/18 11/19/18 History U-100 Insulin] melatonin 9 mg PO BEDTIME PRN 08/20/18 11/19/18 History metformin [Glucophage] 1,000 mg PO BID 11/19/18 11/19/18 History Allergies Allergy/AdvReac Type Severity Reaction Status Date / Time No Known Drug Allergies Allergy Verified 11/19/18 16:01 Review of Systems Constitutional Constitutional: Denies fever(s) Cardiovascular Cardiovascular: Denies chest pain, Denies leg swelling and Denies shortness of breath Respiratory Respiratory: Denies cough and Denies dyspnea Gastrointestinal Gastrointestinal: Denies change in bowel habits Exam Vital Signs (past 8 hours): - 11/19/18 16:11 Temperature 97.6 F Pulse Rate 100 H Respiratory Rate 16 Blood Pressure 148/95 H Pulse Oximetry 92 Oxygen Delivery Method Room Air Narrative Exam Narrative: General: Disheveled male appearing older than stated age with poor hygiene resting comfortably on bed. Awake and alert, no acute distress. HEENT: NCAT, EOMI, moist oral mucosa CV: Regular rate and rhythm, no murmurs, rubs or gallops Lungs: CTAB, no wheezes, rales, or rhonchi Extremities: Wound vac and dressing on left foot with trace LE edema. Right leg warm without edema. Assessment & Plan Assessment and plan (1) Diabetic foot ulcer: Qualifiers: Diabetes mellitus type: type 2 Diabetic foot ulcer location: midfoot Laterality: left Non-pressure ulcer stage: unspecified non-pressure ulcer stage Qualified Code(s): E11.621 - Type 2 diabetes mellitus with foot ulcer; L97.429 - Non-pressure chronic ulcer of left heel and midfoot with unspecified severity Current visit: No Status: Acute (2) Chronic osteomyelitis: Current visit: Yes Status: Acute (3) Uncontrolled type 2 diabetes mellitus with diabetic polyneuropathy, with long-term current use of insulin: Current visit: No Status: None (4) Tobacco use: Current visit: No Status: None (5) Diabetic polyneuropathy associated with type 2 diabetes mellitus: Current visit: No Status: None Assessment & Plan narrative: Patient is a 50-year-old man with uncontrolled type 2 diabetes, diabetic neuropathy, chronic left foot ulcer and tobacco use with chronic osteomyelitis of the left foot. He has previously refused inpatient treatment however agreed to debridement with Dr. Mendosa today and admission for IV antibiotics while awaiting results of culture sensitivities to guide antibiotic management. Left foot ulcer, chronic osteomyelitis - Greatly appreciate debridement and wound vac with Dr. Mendosa today - Empiric vanco and Unasyn while awaiting culture and PCR results - Will review culture results with ID to determine further management - Plan for outpatient wound care at [facility] upon discharge Diabetes - Lantus 30 units b.i.d. 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 He understands the treatment plan and is willing to stay through the weekend. He is claustrophobic and does well with frequent reassurance and distraction. Diet: Diabetic diet DVT prophylaxis: Lovenox and SCDs Code status: Full code Disposition: Anticipate several days in the hospital for IV antibiotics while awaiting culture and sensitivity results.
--- NOTE | 2018-11-19 18:18 | PC.NURSE ---
Addendum entered by Windy Schreiber R.N. 11/19/18 23:23: Continues to lie quietly in bed with eyes closed. No further outbursts. IV vancomycin infusing as ordered. Decision by this play writer not to waken pt d/t previous documented behavior. NOC RN, Noemi, informed of pt's surgery, postop course, and behavior. Addendum entered by Windy Schreiber R.N. 11/19/18 21:33: Pt wakes from sleep and is loudly calling out and cursing. Meagher up and down hallway. Expresses anger over length of time required to infuse iv antibiotics. Ranting over several minutes. Staff remain distant while pt rants, hollers. Pt remains in bed and no attempts to get out of bed. Wound vac intact to left foot @ 125 mm/Hg. Vancomycin infusing to right hand iv site. SCD's not placed on pt and pt not approached for hs meds d/t behavior. Will allow for sleep and reapproach when and if pt wakes and is calm and cooperative. SAFETY COUNCIL DIRECTOR expresses reluctance to approach pt for care and this was respected. Addendum entered by Windy Schreiber R.N. 11/19/18 20:26: Pt currently asleep on bed. Will not awake pt d/t pt's previous verbal outburst. Will allow for uninterrupted sleep. Vancomycin infusing as ordered. Addendum entered by Windy Schreiber R.N. 11/19/18 19:29: Pt alternates quickly between being calm and cooperative and ranting. Nicotine patch placed to assist with nicotine cravings. Took entire diet well. Moves independently in bed and from sitting to lying. Disconnects own wound vac and reattaches to put on own pants. Requests staff disconnect iv antibiotics so pt can put shirt on. This was done and pt reconnected to resume antibiotics. Pt lying down in bed and continues verbal rampage. Does not threaten staff. Refuses vital signs and so this was not pursued. Door open with fan in place per pt request to manage pt's stated claustrophobia. Original Note: Pt to room 217 from PACU awake, alert, conversant. Is coooperative with care and courteous to staff. Requests meal and ADA diet was provided with oral fluids. Wound vac in place to 125 mm/Hg to left foot. Pt denies nausea, denies pain.
[2018-11-19] MEDS: AMPICILLIN/SULBACTAM 3 GM 3 GM in SODIUM CHLORIDE 0.9% 100 ML IV ×2 (18:58→23:31)
[2018-11-19] MEDS: NICOTINE 14 PATCH 14 MG TOP (19:23)
[2018-11-19] MEDS: VANCOMYCIN 2,000 MG in SODIUM CHLORIDE 0.9% 500 ML 250 ML IV (20:28)
--- NOTE | 2018-11-19 23:51 | PC.NURSE ---
Shift note: Received pt from evening shift. Pt was uncooperative with care for evening shift. Went into pt room to perform safety checks and pt woke up. Requested to do focused physical assessment to which pt agreed to, lung sounds were clear and diminished in bases, HR regular, bowel tones positive. Pt agreed to a BG stick, 315, and vital signs. Requested that IV be stopped and agreed to wait til unasyn infused and would be off for several hours after. Pt stated that he remembered this RN and agreed to be cooperative with care, requested that HOB be lowered so that he could boost himself up and that he be completely covered with blanket. After pt boosted self, returned bed to lowest position and raised HOB back up. Pt is a high fall risk but refuses bed alarm, will monitor as often as he allows for safety. Pt refused SCDs and gown. Allowing pt to sleep as uninterrupted as possible.
[2018-11-20] MEDS: MELATONIN 3 MG TABLET 9 MG PO ×2 (01:18→21:38)
[2018-11-20] MEDS: VANCOMYCIN 1,250 MG in SODIUM CHLORIDE 0.9% 250 ML IV ×3 (03:32→21:01)
[2018-11-20 06:03] LABS: Add Manual Diff / Slide Review NO; Basophils Absolute Auto 100 /uL (0-100); Basophils Percent Auto 1.1 % (0-2); Eosinophils Absolute Auto 300 /uL (0-450); Eosinophils Percent Auto 5.3 % (2-4); Hematocrit 35.2 % (41-53); Hemoglobin 11.8 g/dL (13.5-17.5); Lymphocytes Absolute Auto 1000 /uL (1100-4500); Lymphocytes Percent Auto 16.4 % (25-40); Mean Corpuscular HGB Conc 33.7 % (30-36); Mean Corpuscular Hemoglobin 28.4 PG (26-34); Mean Corpuscular Volume 84.4 fL (80-100); Monocytes Absolute Auto 500 /uL (0-900); Monocytes Percent Auto 7.4 % (3-14); Neutrophils Absolute Auto 4400 /uL (1500-7000); Neutrophils Percent Auto 69.8 % (50-75); Platelet Count 217 X10^3/uL (150-400); Red Blood Cell Count 4.17 X10^6/uL (4.5-5.9); Red Cell Distribution Width 15.7 % (11.6-14.8); White Blood Cell Count 6.3 X10^3/uL (4.5-11.0)
[2018-11-20 06:13] LABS: BUN Creatinine Ratio 23.3 (6-22); Blood Urea Nitrogen 14 mg/dL (9-20); Calcium 8.2 mg/dL (8.4-10.2); Carbon Dioxide 26 mmol/L (22-32); Chloride 102 mmol/L (98-107); Estimated Glomerular Filt Rate > 60.0 mL/min (>60); Glucose 255 mg/dL (70-100); HEMOLYSIS < 15 (0-50); Potassium 3.8 mmol/L (3.4-5.1); Sodium 135 mmol/L (137-145)
[2018-11-20 06:18] LABS: Hemoglobin A1C% w Est Avg Glu 12.2 % (4.0-6.0)
[2018-11-20] MEDS: AMPICILLIN/SULBACTAM 3 GM 3 GM in SODIUM CHLORIDE 0.9% 100 ML IV ×3 (06:24→19:20)
[2018-11-20] MEDS: SODIUM CHLORIDE 0.9% FLUSH 10 ML IV ×3 (06:25→21:46)
[2018-11-20 06:29] VITALS: BP 105/70; PULSE 84; RESP 16; TEMP 37.1; O2SAT 91
[2018-11-20] MEDS: ENOXAPARIN 40 MG/0.4 ML SYRINGE SUBCUT (08:09)
[2018-11-20] MEDS: DOCUSATE 100 MG CAPSULE PO ×2 (08:09→21:38)
[2018-11-20] MEDS: ACETAMINOPHEN 325 MG TABLET 975 MG PO ×3 (08:09→21:37)
[2018-11-20] MEDS: NICOTINE 14 PATCH 14 MG TOP (08:09)
[2018-11-20] MEDS: ASPIRIN EC 81 MG TABLET PO ×2 (08:09→21:38)
[2018-11-20] MEDS: METFORMIN HCL 500 MG TABLET 1000 MG PO ×2 (08:09→21:38)
[2018-11-20] MEDS: INSULIN GLARGINE 100 UNIT/ML 3ML PEN 30 UNIT SUBCUT ×2 (08:13→21:45)
[2018-11-20] MEDS: INSULIN ASPART 100 UNIT/ML INSULN PEN SUBCUT ×4 (08:14→21:43)
--- NOTE | 2018-11-20 09:22 | P.PN_ITS ---
Subjective Subjective Date Patient Seen: 11/20/18 Time Patient Seen: 09:22 Interval history: Patient denies pain. No fever chills. Otherwise without complaints. Exam Vital Signs (past 8 hours): - 11/20/18 06:29 Temperature 98.7 F Pulse Rate 84 Respiratory Rate 16 Blood Pressure 105/70 Pulse Oximetry 91 Oxygen Delivery Method Room Air Narrative Exam Narrative: 58-year-old male resting comfortably in bed in no apparent distress. Wound VAC and dressing in place. Objective Labs Result Diagrams: 11/20/18 05:53 11/20/18 05:53 Labs: Laboratory Results - last 24 hr 11/20/18 11/20/18 11/20/18 05:53 05:53 05:53 WBC 6.3 RBC 4.17 L Hgb 11.8 L Hct 35.2 L MCV 84.4 MCH 28.4 MCHC 33.7 RDW 15.7 H Plt Count 217 Neut % (Auto) 69.8 Lymph % (Auto) 16.4 L [place] % (Auto) 7.4 Eos % (Auto) 5.3 H Baso % (Auto) 1.1 Neut # (Auto) 4400 Lymph # (Auto) 1000 L [place] # (Auto) 500 Eos # (Auto) 300 Baso # (Auto) 100 Sodium 135 L Potassium 3.8 Chloride 102 Carbon Dioxide 26 BUN 14 Creatinine 0.60 L Estimated GFR > 60.0 BUN/Creatinine Ratio 23.3 H Glucose 255 H Hemoglobin A1c 12.2 H Calcium 8.2 L Assessment & Plan Post-op Postoperative Procedures: Procedures Operation Date: 11/19/18 15:30 Actual Procedures Side Surgeon p Excisional debridement diabetic ulcer foot WITH APPLICATION OF WOUND VAC Left Radha Mendosa MD Postop day 1 status post incision and drainage, excisional debridement left foot ulcer subcutaneous tissue and bone, incisional wound VAC placement. Plan per Dr. Mendosa 11/19/18: Nonweightbearing left lower extremity-or offloading as much as possible to aid with wound healing. Patient is encouraged to use his [place] walker boot. This does not fit with the VAC a postoperative shoe will be issued. The patient has a wheelchair which he is encouraged to use. Keep wound VAC in place. Hospitalization over the weekend broad-spectrum IV antibiotics. Dr. Morales will manage medical problems. Patient will have wound VAC change on the floor on Thursday. Once cultures finalized will be discharged on appropriate antibiotics recommended by Dr. Wiggins at [facility] infectious disease. Patient has follow-up appointment with [facility] wound Care Clinic on 11/25, , 9:30 a.m. plan with patient discharged with wet to dry dressing on da te of discharge from [facility] to be seen then and managed at [facility] wound clinic.
--- NOTE | 2018-11-20 09:45 | PT.IIE ---
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 (11/19/18) Surgery Performed Operation Date: 11/19/18 15:30 Actual Procedures p Excisional debridement diabetic ulcer foot WITH APPLICATION OF WOUND VAC(Left) - Radha Mendosa MD Surgical History (Last Reviewed 11/19/18 @ 18:04 by Madeline Morales DO) History of carpal tunnel release (Resolved) History of hand surgery (Resolved) History of umbilical hernia repair (Resolved) Status post incision and drainage (Acute 06/11/18) Status post left foot surgery (Resolved) Status post left foot surgery (Resolved) Medical History (Last Updated 11/20/18 @ 10:32 by Riley Do MD) Chronic diabetic ulcer of foot determined by examination (Chronic) Chronic osteomyelitis (Acute) CTS (carpal tunnel syndrome) (Resolved) Diabetes mellitus (Chronic) Homeless (Chronic 07/22/16) Obstructive lung disease (Chronic) Presence of surgical screw in left hand (Chronic) Restrictive lung disease (Chronic)
--- NOTE | 2018-11-20 10:22 | PM.PN.1 ---
Subjective Subjective Date Patient Seen: 11/20/18 Time Patient Seen: 10:22 Interval history: Patient is a pleasant but completely noncompliant, homeless patient who was admitted yesterday for debridement of a chronic diabetic ulcer on his foot that had not been cared for properly due to patient's noncompliance. Patient is also noncompliant with his diabetes and his treatment for same. Hemoglobin A1c is greater than 12 which indicates that In any event he had a successful procedure yesterday has wound VAC placed. He is on empiric IV antibiotics based on most recent culture results with current cultures pending Currently patient has no complaints. He has been refusing to participate in care overnight which is his usual pattern. This morning he is pleasant and has no complaints for me. Exam Vital Signs (past 8 hours): - 11/20/18 06:29 Temperature 98.7 F Pulse Rate 84 Respiratory Rate 16 Blood Pressure 105/70 Pulse Oximetry 91 Oxygen Delivery Method Room Air Objective Labs Result Diagrams: 11/20/18 05:53 11/20/18 05:53 Labs: Laboratory Results - last 24 hr 11/20/18 11/20/18 11/20/18 05:53 05:53 05:53 WBC 6.3 RBC 4.17 L Hgb 11.8 L Hct 35.2 L MCV 84.4 MCH 28.4 MCHC 33.7 RDW 15.7 H Plt Count 217 Neut % (Auto) 69.8 Lymph % (Auto) 16.4 L [place] % (Auto) 7.4 Eos % (Auto) 5.3 H Baso % (Auto) 1.1 Neut # (Auto) 4400 Lymph # (Auto) 1000 L [place] # (Auto) 500 Eos # (Auto) 300 Baso # (Auto) 100 Sodium 135 L Potassium 3.8 Chloride 102 Carbon Dioxide 26 BUN 14 Creatinine 0.60 L Estimated GFR > 60.0 BUN/Creatinine Ratio 23.3 H Glucose 255 H Hemoglobin A1c 12.2 H Calcium 8.2 L Assessment & Plan Assessment & Plan narrative: 1. Status post left diabetic foot ulcer debridement etc-continue management as per Orthopedic surgery. Continue current IV antibiotics until they can be tailored based on culture results and/or consultation with Infectious Disease. 2. Diabetes-patient has had very poor outpatient control of his diabetes as noted above. He did not receive insulin last evening because of behavioral issues. He basically refused because he was upset he was in the hospital. Blood sugar is predictably very high this morning. Initially I had ordered an increase dose of Lantus with his blood sugars ranging from 200-300. However after identifying that he had actually not received insulin as ordered will try it at 30 units twice daily with a high corrective scale for short-acting insulin. He may well need additional insulin but difficult to ascertain given that in the hospital here he should have more of a controlled diet which I am sure is not happening as an outpatient. I would hate to cause hypoglycemia but we do need better control of his blood sugar overall and patient is aware. Overall patient has a completely avoidable problem in his foot that has been complicated by his lack of compliance with medical care his lack of compliance for diabetic control and his homelessness. Patient continues to display behaviors here in the hospital that will lead to further complications of his foot. I discussed this with him at some length and warned him that the next step from here is likely an amputation. Patient does not seem distressed by that as he has been told that he would likely heal better faster with an amputation and I think does not see the long-term bigger picture involved here unfortunately. For now will continue treatment as above I fully expect patient's behavior to continue to be an issue in fact he has left Against Medical Advice on many occasions and I would not be overly surprise should that occur with this hospitalization as well. Note: Greater than 30 minutes was spent evaluating the patient on the floor, including examining the patient, discussing clinical course with clinical and nursing staff, reviewing clinical course in the computer, preparing documentation and writing orders for continued management of care, discussing status with family as appropriate, reviewing plans for the next 24 hours with both patient/family and nursing staff as appropriate.
--- NOTE | 2018-11-20 11:51 | PT.IIE ---
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 (11/19/18) Surgery Performed Operation Date: 11/19/18 15:30 Actual Procedures p Excisional debridement diabetic ulcer foot WITH APPLICATION OF WOUND VAC(Left) - Radha Mendosa MD Surgical History (Last Reviewed 11/19/18 @ 18:04 by Madeline Morales DO) History of carpal tunnel release (Resolved) History of hand surgery (Resolved) History of umbilical hernia repair (Resolved) Status post incision and drainage (Acute 06/11/18) Status post left foot surgery (Resolved) Status post left foot surgery (Resolved) Medical History (Last Updated 11/20/18 @ 10:32 by Riley Do MD) Chronic diabetic ulcer of foot determined by examination (Chronic) Chronic osteomyelitis (Acute) CTS (carpal tunnel syndrome) (Resolved) Diabetes mellitus (Chronic) Homeless (Chronic 07/22/16) Obstructive lung disease (Chronic) Presence of surgical screw in left hand (Chronic) Restrictive lung disease (Chronic) Physical Therapy Inpatient Evaluation/Re-Eval M1 PT/OT-IP Prior Functional Status Start: 11/20/18 13:29 Freq: NEEDED Status: Active Protocol: Document 11/20/18 11:51 AB (Rec: 11/20/18 13:56 AB [id number]) Medical Review Prior Functional Status Medical History Reviewed Yes Communication able to make needs known Mobility and Gait pt stated that he is modified independent with all mobilities and ambulation using SPC. pt uses a manual w /c/ powered w/c for mobility. ambulates only short distances if w/c is not accessible. Prior Functional Level (Other details) pt stated that he has LLE wound problem for 4 years and able to off load weight on LLE. pt has an offloading shoe and a [employer] [place] walker foot brace to help unweigh LLE. pt is homeless and is living on his truck at this time. able to drive independently. walkes with SPC to get his w/c on/off the trunk of his truck . Social History Household Members none Living Arrangements Homeless Number of Stairs To Enter/Railing? pt stated that he lives in his truck at this time M2 PT-IP Current Condition Start: 11/20/18 13:29 Freq: NEEDED Status: Active Protocol: Document 11/20/18 11:51 AB (Rec: 11/20/18 13:56 AB [id number]) Physical Therapy Current Condition Current Condition Evaluation Date 11/20/18 Treatment Diagnosis L midfoot osteomyelitis; difficulty in walking Onset Date 11/19/18 Weight Bearing Status Weight Bearing Status Non-Weight Bearing Allowed Weight Bearing Amount (enter % per MD order: NWB LLE or off or #) (%) loading as much as possible M3 PT-IP Subjective Start: 11/20/18 13:29 Freq: NEEDED Status: Active Protocol: Document 11/20/18 11:51 AB (Rec: 11/20/18 13:56 AB [id number]) Subjective Physical Therapy Visit Type Type Initial Evaluation Visit Start Time 11:51 Visit Stop Time 12:14 Total Visit Minutes 23 Number of GUEST SERVICES ASSOCIATE Visits 0 Physical Therapy Visit Comments Patient Comments pt initially refusing stating that he has his foot problem and knows what to do Therapy Pain Assessment Pain Present Pain Present Denied Pain M4 PT-IP Mobility and Gait Start: 11/20/18 13:29 Freq: NEEDED Status: Active Protocol: Document 11/20/18 11:51 AB (Rec: 11/20/18 13:56 AB [id number]) PT-Bed Mobility Assessment Supine to Sit Supine to Sit Independent Sit to Supine Sit to Supine Independent Scooting Scooting to Edge of Bed Independent Scooting Up and Down in Bed Independent PT-Transfer Assessment Sit to and From Stand Sit to and from Stand Independent Equipment Transfer Assistive Device None Orthotic/Prosthetic Devices or Brace: No Transfers Transfer Destination Wheelchair Transfer Technique Stand Pivot Transfer Ability Level of Assist Independent,Use of Upper Extremities Comments Mobility Comments pt completed bed mobility independently. completed sit to stand mod I and completed stand pivot transfer mod I. pt was able to off load weight on L mid/forefoot and putting most of the weight on RLE. pt directs his own care and gets easily agitated. Gait Assessment Gait Gait Assistance Required: Standby Assistance Distance (Feet) 6 Able to Maintain Weight Bearing Status Yes During Gait Assistive Devices Assistive Device Straight Cane Gait Deviations General Gait Pattern Antalgic,Decreased Stride Length,Decreased Feet Clearance Factors Limiting Gait Function Factors Limiting Gait Function Decreased Strength,Poor Safety Awareness Comments Gait Comments pt completed ambulation using SPC SBA offloading weight on LLE. does not want to use post-op shoe or boot and able to put most of the weight on RLE and offload L mid/forefoot . PT-Balance Assessment Sitting Balance and Reactions Static Sitting Balance Ability Good Dynamic Sitting Balance Ability Good Standing Balance and Reactions Static Standing Balance Ability Fair Dynamic Standing Balance Ability Fair Device Used SPC M5 PT-IP Objective Assessments Start: 11/20/18 13:29 Freq: NEEDED Status: Active Protocol: Document 11/20/18 11:51 AB (Rec: 11/20/18 13:56 AB [id number]) Orientation Orientation/Cognition Level of Alertness Alert Orientation Name,Place,Situation Language Function Ability No Deficits Noted Safety Awareness Decreased Safety Awareness Gross Range of Motion Lower Extremity ROM Impairments L charcot foot Strength Lower Extremity Strength Assessment Bilaterally Impaired Knee 4-/5 Coordination Assessment Gross Coordination Gross Coordination WNL Muscle Tone Muscle Tone WNL Yes M6 PT-IP Treatment Start: 11/20/18 13:29 Freq: NEEDED Status: Active Protocol: Document 11/20/18 11:51 AB (Rec: 11/20/18 13:56 AB [id number]) Physical Therapy Treatment Education Education Provided Weight Bearing Status,Safety M7 PT-IP Assessment and Plan Start: 11/20/18 13:29 Freq: NEEDED Status: Active Protocol: Document 11/20/18 11:51 AB (Rec: 11/20/18 13:56 AB [id number]) PT Summary Assessment and Plan Potential Rehabilitation Potential Fair Status of Condition at Evaluation Stable Summary Assessment Summary PT eval completed. No further PT intervention indicated. Pt is at OF. pt able to complete bed mobility and transfers independently. pt limited in ambulation due to L osteomyelitis but pt is not ambulating much prior to admission and has a manual w/c and a power w/c that he uses for mobility. Frequency of Treatment Frequency Of Treatment Discharge Recommendations To Nursing Amount of Assist Needed Standby Assistance Discharge Recommendations PT Discharge Recommendations Home
[2018-11-20 12:00] VITALS: BP 127/71; PULSE 91; RESP 16; TEMP 36.4
[2018-11-20 13:46] VITALS: PULSE 95; RESP 18; O2SAT 97
[2018-11-20 14:40] VITALS: BMI 32.9
--- NOTE | 2018-11-20 14:45 | DIET.PN ---
Dietary Progress Note Assessment: 58y M referred to nutrition for food insecurity r/t homelessness, uncontrolled DM2, and wound debridement support. Pt A1c jumped from 7s to 12s r/t homelessness, reliance on simple carbs and improper storage for insulin leading to not using insulin. Per pts past AMA, this RD did not visit pt in person today (Thursday), however did order Emil for wound healing. HT: 185.4cm WT: 113.3kg BMI: 33 Labs: A1c 12.2 (HH), BG 255 (H) Nutrition Diagnosis: Inadequate PRO energy intake r/t increased need for excisional debridement healing secondary to uncontrolled DM2 aeb A1c 12.2 (H), BG 255, pt reporting did not take insulin for past week, homeless and food insecure. Interventions: Sending Emil bid providing 28g PRO (20% needs) and arginine to assist wound healing. Pt on Consistent Carb 45g carb limit diet. Recc tight control BG keeping <200 to aid collagen formation. Will consider additional PRO support if pt POs drop below 100% or tray ordering is insufficient. EERs: 2500kcal, 150g PRO (1.3g/kg for wound healing), 2.8 L fluids (35cc/kg) Monitoring/Evaluations: f/u Mon to assist pt c [facility]
[2018-11-20 16:15] VITALS: BP 123/73; PULSE 84; RESP 18; TEMP 36.8; O2SAT 96
--- NOTE | 2018-11-20 16:40 | CM.DANOTE ---
Addendum entered by Buffy Pickard LPN 11/20/18 16:51: Did fax initial clinical notes to [facility]/[employer]icaid as per the weekend Cm dept protocol. Receipt of fax confirmation was received 11/20 #: 53 PM 16 pages. [facility]. Original Note: Discharge Planning/Care Management DCP: assessment: case received, EMR reviewed and met briefly with pt this morning. Introduced self and role. Pt was agitated and verbally combative/abusive with staff and including this DCPlanner and decision made to discuss this case further with care team members before proceeding further. Did discuss in Team Rounds with RN coordinator Karen , ANGIE Stephens and the therapists. Will continue the assessment process tomorrow. Pt has been at in the past. He is currently homeless having left a senior living care facility in [place] a few months ago AMA. Due to lateness of hour will continue this assessment tomorrow. CM Discharge Assessment Start: 11/20/18 16:38 Freq: Status: Active Protocol: Document 11/20/18 16:38 ITV (Rec: 11/20/18 16:39 ITV [id number]) Discharge Planning Assessment Advance Directives? No History Provided By Patient,Medical Record Prior Living Arrangements Homeless Household Members none Type of transporation used prior to Drives own vehicle admit Comment Has electric wheel-chair Review Status In Process Pre-Anesthesia Assessment Start: 11/19/18 07:54 Freq: Status: Complete Protocol: Document 11/19/18 07:54 CAB (Rec: 11/19/18 08:13 CAB [id number]) Pre-Anesthesia Assessment PAC Comment Pt is homeless. 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 No Currently Taking a Beta Bryan No Anti-Coagulant Therapy No Has a Six Horse Hitch Driver No Cardiac Testing No Hx Pacemaker/ICD No Pacemaker Rep Required? 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 Do You Have Any Cultural Practices That No May Affect Your HC Choices? Emergency Contact Name none Advance Directives? No Power of Plug Paster No
[2018-11-20 20:35] VITALS: BP 141/87; PULSE 81; RESP 18; TEMP 36.4; O2SAT 92
[2018-11-20 20:45] LABS: Vancomycin Trough 12.8 ug/mL (10-20)
[2018-11-20 23:50] VITALS: BP 121/86; PULSE 85; RESP 18; TEMP 36.6; O2SAT 96
[2018-11-21] VITALS (8 sets, daily range): BP systolic 109–153; BP diastolic 63–96; PULSE 66–98; RESP 16–20; TEMP 36.2–36.9; O2SAT 95–97
[2018-11-21] MEDS: AMPICILLIN/SULBACTAM 3 GM 3 GM in SODIUM CHLORIDE 0.9% 100 ML IV ×2 (02:27→07:30)
[2018-11-21] MEDS: SODIUM CHLORIDE 0.9% 250 ML 21 ML IV (02:27)
[2018-11-21] MEDS: SODIUM CHLORIDE 0.9% FLUSH 10 ML IV ×4 (02:28→22:38)
--- NOTE | 2018-11-21 03:28 | PC.NURSE ---
Patient alert and oriented. Very gruff sounding voice sounding angry with conversation but then thanks RN stating you did a good job. Breath sounds CTA with RA sat of 96%. HRR. Denies nausea. Denies constipation. Denies urinary problems. Able to turn himself in bed. Per evening RN patient has been getting up to bathroom without assistive device even though he is non weight bearing, but when speaking to patient he states he would use walker so walker provided but has not yet voided this shift so unsure if he will actually use the walker or not. Wound vac is intact to left foot; set at 125mm hg. Dressing is CDI. Bilateral, chronic LE neuropathy from knee down. Denies pain. Wearing bilateral SCD's. Fall risk score is moderate but has been calling appropriately for assistance so bed alarm has not been used.
[2018-11-21] MEDS: VANCOMYCIN 1,250 MG in SODIUM CHLORIDE 0.9% 250 ML IV (03:54)
[2018-11-21] MEDS: METFORMIN HCL 500 MG TABLET 1000 MG PO ×2 (07:29→17:26)
[2018-11-21] MEDS: INSULIN GLARGINE 100 UNIT/ML 3ML PEN 30 UNIT SUBCUT ×2 (07:34→20:54)
[2018-11-21] MEDS: ACETAMINOPHEN 325 MG TABLET 975 MG PO ×2 (07:50→20:39)
[2018-11-21] MEDS: NICOTINE 14 PATCH 14 MG TOP (07:50)
[2018-11-21] MEDS: ASPIRIN EC 81 MG TABLET PO ×2 (07:51→20:40)
[2018-11-21] MEDS: ENOXAPARIN 40 MG/0.4 ML SYRINGE SUBCUT (07:51)
--- NOTE | 2018-11-21 10:08 | PC.NURSE ---
Day Shift- Pt A&OX4, cooperative with care at this time, Pt requested his Metformin, Lantus, at 0730 this AM. BG finger stick checked for 164. Pt took his pills whole with water. Voiding qs using urinal. Wound AVC in place to left foot and covered with [place] wrap, Wound VAC at 125 mmhg continuous suction. BLE calf SCD's on. Explained to pt to call for assist if he would like to sit in his wheelchair or recliner chair. Pt stated, my wheelchair is close enough, I can do it. Explained that he is connected to 3 different tubing and to prevent falls and obstacles to call for assist, call light within reach. And to not bear-weight on his left foot.
--- NOTE | 2018-11-21 12:26 | P.PN_ITS ---
Subjective Subjective Date Patient Seen: 11/21/18 Time Patient Seen: 12:27 Interval history: Patient is essentially unchanged. Uneventful day yesterday Blood sugars are improved now that he has had his usual insulin dose Cultures from the foot does far showing gram-negative bacilli and no gram- positive organisms. Exam Vital Signs (past 8 hours): - 11/21/18 05:01 Temperature 97.1 F L Pulse Rate 76 Respiratory Rate 16 Blood Pressure 109/63 Pulse Oximetry 97 Fraction of Inspired Oxygen 21 Oxygen Delivery Method Room Air Oxygen Flow Rate 0 Objective Labs Result Diagrams: 11/20/18 05:53 11/20/18 05:53 Labs: Laboratory Results - last 24 hr 11/20/18 19:30 Vancomycin Trough 12.8 Assessment & Plan Assessment & Plan narrative: 1. Diabetic foot ulcer-continue current postoperative care as per Ortho. Patient did previously grow MRSA as well as Enterococcus from this left foot but currently only growing gram-negative bacilli. Currently on Vanco and Unasyn. The Morganella species identified is resistant to the Unasyn. I am therefore going to switch antibiotics to Zosyn to which it is sensitive as well as the previous organisms identified on previous cultures. Previous organisms were resistant to fluoroquinolones so I did not choose that. Patient thus far has no gram-positive organisms but I would continue vancomycin until cultures are complete probably at least another 24 hours, since he did previously have both methicillin-resistant Staph and Enterococcus in the wound. 2. Diabetes-adequate control for now. Continue to monitor numbers carefully. Continue with diabetic consistent diet here in the hospital Overall patient is stable. Continue current treatment as per Ortho. I did go ahead and change antibiotics as above. Disposition will be difficult for this homeless person who is very noncompliant unlikely to show up for wound care and management. Note: Greater than 20 minutes was spent evaluating the patient on the floor, including examining the patient, discussing clinical course with clinical and nursing staff, reviewing clinical course in the computer, preparing documentation and writing orders for continued management of care, discussing status with family as appropriate, reviewing plans for the next 24 hours with both patient/family and nursing staff as appropriate.
[2018-11-21] MEDS: VANCOMYCIN 1,500 MG/300 ML FROZ.PIGGY 200 MG IV ×2 (12:43→20:40)
[2018-11-21] MEDS: INSULIN ASPART 100 UNIT/ML INSULN PEN SUBCUT ×2 (12:44→17:25)
[2018-11-21] MEDS: PIPERACILLIN-TAZO 3.375 GM/50 ML FROZ.PIGGY IV ×2 (14:26→22:37)
--- NOTE | 2018-11-21 14:33 | PM.PN.1 ---
Subjective Subjective Date Patient Seen: 11/21/18 Time Patient Seen: 14:34 Interval history: The patient is resting comfortably in bed no complaints Exam Vital Signs (past 8 hours): - 11/21/18 10:50 11/21/18 12:58 Temperature 98.3 F Pulse Rate 79 74 Respiratory Rate 18 16 Blood Pressure 149/96 H Pulse Oximetry 97 Fraction of Inspired Oxygen 21 Oxygen Delivery Method Room Air Oxygen Flow Rate 0 Narrative Exam Narrative: Dressing is dry, wound VAC is working well, resting comfortably in bed with no complaints Objective Labs Result Diagrams: 11/20/18 05:53 11/20/18 05:53 Labs: Laboratory Results - last 24 hr 11/20/18 19:30 Vancomycin Trough 12.8 Assessment & Plan Assessment & Plan narrative: Chronic significant wound problems with diabetic foot ulcer. Stable with a wound VAC. Dr. Jesus plans to see the patient tomorrow or Thursday and likely do a dressing change hopefully get the patient into wound management.
--- NOTE | 2018-11-21 15:56 | CM.DPC ---
Addendum entered by Buffy Pickard LPN 11/21/18 16:04: Recommend a review of the June 2018 [facility] stay and DCP notes which should assist in DCPlanning for this stay. Pt was d/c'd at that time to [facility] in [place]. Prior to this he was a resident of the [facility]. Original Note: DCP: continued: Dr. Do' progress note as well as the rounding orthopedic note is reviewed. It is unclear if plan for pt to go to the [facility] is doable as he was unable to manage to do this at the [facility]. Consider possibility that pt may need to continue to followup as he has been with his PCP, [facility] and Dr. Weems for his wound care needs. Due to caseload triage needs was unable to spend more time with pt today to discuss these issues. DCP team to follow and recommend inclusion of the BATCH UNIT TREATER team.
--- NOTE | 2018-11-21 19:01 | PC.NURSE ---
Addendum entered by Luba Hammond R.N. 11/21/18 22:04: New IV site established in LFA Condition remains essentially unchanged. Resting most of evening. Wound vac intact/patent, dsg CDI. Call light w/in reach, pt calls appropriately for needs. Continue w/plan of care. Original Note: Pt became very angry, throwing the TV remote at nurse when assisting him to the BR. Refused to let RN do assessment. HL intact, Wound vac left lower leg intact/patent. AC CBG = 178. S/S 2u given and pt asking for metformin at this time given. Resting at this time. Call light w/in reach.
[2018-11-21] MEDS: MELATONIN 3 MG TABLET 9 MG PO (20:40)
[2018-11-22] MEDS: VANCOMYCIN 1,500 MG/300 ML FROZ.PIGGY 200 MG IV (04:05)
[2018-11-22] MEDS: SODIUM CHLORIDE 0.9% FLUSH 10 ML IV ×3 (04:06→21:18)
[2018-11-22 05:00] VITALS: RESP 16
[2018-11-22] MEDS: PIPERACILLIN-TAZO 3.375 GM/50 ML FROZ.PIGGY IV (05:39)
--- NOTE | 2018-11-22 05:48 | PC.NURSE ---
HOOP FLARING MACHINE OPERATOR note: Patient was yelling at staff regarding his IV. Refused vitals and was swearing so much HOOP FLARING MACHINE OPERATOR (me) didn't feel safe to attempt. Counted respirations.
[2018-11-22] MEDS: ASPIRIN EC 81 MG TABLET PO ×2 (07:58→20:48)
[2018-11-22] MEDS: METFORMIN HCL 500 MG TABLET 1000 MG PO ×2 (07:58→16:32)
[2018-11-22] MEDS: ENOXAPARIN 40 MG/0.4 ML SYRINGE SUBCUT (07:58)
[2018-11-22] MEDS: NICOTINE 14 PATCH 14 MG TOP (07:59)
[2018-11-22] MEDS: ACETAMINOPHEN 325 MG TABLET 975 MG PO ×2 (07:59→20:48)
[2018-11-22] MEDS: INSULIN GLARGINE 100 UNIT/ML 3ML PEN 30 UNIT SUBCUT ×2 (08:06→20:53)
--- NOTE | 2018-11-22 08:30 | PC.NURSE ---
Addendum entered by Magdalena Haider R.N. 11/22/18 11:06: Dr Mendosa in and changed wound vac and dressing. Original Note: Patient alert, oriented, c/o back pain, given tylenol as requested. Denies pain to LLE. Wound vac WNL.
[2018-11-22 09:06] VITALS: BP 120/64; PULSE 74; RESP 18; TEMP 37.1; O2SAT 97
--- NOTE | 2018-11-22 10:29 | P.PN_ITS ---
Subjective Subjective Date Patient Seen: 11/22/18 Time Patient Seen: 10:29 Interval history: Day 3 debridement left diabetic foot ulcer with osteomyelitis. Comfortable lying in bed. No complaints. Cultures are back today. PCR still pending. Discussed with Dr. Morales who discussed cultures with Dr. Wiggins at [facility] Infectious Disease. Given the organisms and the multi resistant patterns, antibiotic therapy is limited. Infectious disease recommendation is for ertapenem. Which in this case since case would likely need to be a daily infusion. Briefly discussed this was patient today. Organism 1 Morganella morganii Growth MODERATE Organism 2 Klebsiella pneumoniae Growth LIGHT Called To: HAL ESBL? Extended spectrum Beta lactamase (ESBL Positive) Organism 3 Proteus mirabilis Growth MODERATE Exam Vital Signs (past 8 hours): - 11/22/18 05:00 11/22/18 09:06 Temperature 98.7 F Pulse Rate 74 Respiratory Rate 16 18 Blood Pressure 120/64 Pulse Oximetry 97 Fraction of Inspired Oxygen 21 Oxygen Delivery Method Room Air Oxygen Flow Rate 0 Narrative Exam Narrative: Alert oriented no acute distress lying in bed comfortably. Respirations unlabored on room air. Vital signs stable. Left lower ext with dressing and wound VAC in place. Good suction. Minimal output. Wiggles toes. Calfs are soft. Objective Labs Result Diagrams: 11/20/18 05:53 11/20/18 05:53 Assessment & Plan Post-op Postoperative Procedures: Procedures Operation Date: 11/19/18 15:30 Actual Procedures Side Surgeon p Excisional debridement diabetic ulcer foot WITH APPLICATION OF WOUND VAC Left Radha Mendosa MD Left diabetic foot ulcer, chronic and osteomyelitis. Wound VAC changed at bedside today. No evidence of deep abscess or purulence drainage. Bleeding tissue present. Wound size measured at 5 cm by 5-1/2 cm by 0.5 cm deep. Wound VAC sponge placed. A care was taken to align the edges of the periwound area with dressing film. Patient tolerated this well. Good suction obtained. Plan maintain wound VAC until date of discharge. Plan for this likely on Thursday. Patient has outpatient appointment with [facility] wound care on at 9:30 a.m. will need antibiotic plan prior to discharge. Appreciate Medicine service diligent coordination of care and diabetic management for this patient. Discussed again with patient the importance of glucose control and adherence to antibiotic therapy and wound therapy visits. Offloading left lower extremity Quality VTE Deep Vein Thrombosis/Pulmonary Embolism Present on Admission: No
[2018-11-22] MEDS: ERTAPENEM 1 GM in SODIUM CHLORIDE 0.9% 100 ML IV (10:58)
[2018-11-22] MEDS: INSULIN ASPART 100 UNIT/ML INSULN PEN SUBCUT ×2 (12:03→20:53)
--- NOTE | 2018-11-22 12:47 | DI.RAD.S_ITS ---
PROCEDURE: XR CHEST FOR PICC 1V INDICATIONS: picc placement [facility] 10[facility], 06/10/2018, 13:09. FINDINGS: PICC was placed by the intravenous therapy team from the left side. Fluoroscopic spot film demonstrates tip of PICC in the superior vena cava. IMPRESSION: Tip of PICC lies within the superior vena cava. Dictated by: Aaron Whaley M.D. on 11/22/2018 at 13:01 Approved by: Aaron Whaley M.D. on 11/22/2018 at 13:04
[2018-11-22 13:29] VITALS: BP 154/98; PULSE 94; RESP 16; O2SAT 91
--- NOTE | 2018-11-22 14:49 | P.PN_ITS ---
Subjective Subjective Date Patient Seen: 11/22/18 Time Patient Seen: 13:40 Interval history: Patient denies complaints this morning. He has been receiving his antibiotics and insulin. He is pleased that his blood sugars have come down. He admits to not using insulin over the summer because he thought the medication had to stay cold and his insulin warmed up in his truck. He is very motivated to use his insulin as prescribed in addition to his metformin to ma nage his blood sugars. His wound VAC is in place. He is eager to begin outpatient wound care treatment. Exam Vital Signs (past 8 hours): - 11/22/18 09:06 11/22/18 13:29 Temperature 98.7 F Pulse Rate 74 94 H Respiratory Rate 18 16 Blood Pressure 120/64 154/98 H Pulse Oximetry 97 91 Fraction of Inspired Oxygen 21 Oxygen Delivery Method Room Air Oxygen Flow Rate 0 Narrative Exam Narrative: General: Disheveled man resting comfortably in bed. Awake and alert, no acute distress. HEENT: NCAT, EOMI, edentulous, moist oral mucosa CV: Regular rate and rhythm, no murmurs, rubs or gallops Lungs: CTAB, no wheezes, rales, or rhonchi Abdomen: Soft, nontender; bowel tones active; no hepatosplenomegaly Extremities: Wound VAC in place on left leg. 1+ edema left leg. No edema of the right leg. 2+ pedal pulses. Objective Labs Result Diagrams: 11/20/18 05:53 11/20/18 05:53 Assessment & Plan Assessment and plan (1) Chronic osteomyelitis: Current visit: Yes Status: Acute (2) Obstructive lung disease: Problem details: By PFT 05/28/18, moderate Current visit: Yes Status: Chronic (3) Homeless: Current visit: Yes Status: Chronic (4) Uncontrolled type 2 diabetes mellitus with diabetic polyneuropathy, with long-term current use of insulin: Current visit: Yes Status: Chronic (5) Tobacco use: Current visit: Yes Status: Chronic (6) Diabetic foot ulcer: Qualifiers: Diabetes mellitus type: type 2 Diabetic foot ulcer location: midfoot Laterality: left Non-pressure ulcer stage: unspecified non-pressure ulcer stage Qualified Code(s): E11.621 - Type 2 diabetes mellitus with foot ulcer; L97.429 - Non-pressure chronic ulcer of left heel and midfoot with unspecified severity Current visit: Yes Status: Chronic Assessment & Plan narrative: Left foot ulcer, chronic osteomyelitis: Bone and wound cultures returned with Morganella, ESBL Klebsiella pneumonia and Proteus mirabilis. Culture and sensitivities reviewed with Dr. Wiggins with Infectious Disease. She recommended 6 weeks of Ertapenem which covers all 3 bacteria. Oral antibiotics are not an option given osteomyelitis as well as resistance patterns of other antibiotics. She also recommends weekly CBC, CMP, ESR and CRP. She will arrange follow-up in her clinic next week. Patient is scheduled at [facility] wound care this week. Patient understands that he must be compliant with treatment for his wound to heal. He will be set up with the infusion center to receive ertapenem as an outpatient for 6 weeks. He received a PICC line today in preparation. Diabetes: Improving glycemic control now that he is on his regular regimen. Patient educated that is insulin does not need to be refrigerated which is what he thought over the summer. He understands that glycemic control is paramount to wound healing. Disposition: Anticipate patient will be ready to discharge on Thursday11/24/18 . Care management and nurses at [facility] are working out the orders for antibiotics at the infusion center. Time Spent With Patient Time with patient: Greater than 35 minutes (Direct [id number] care as well as coordination of care with Orthopedics, Infectious Disease and care management) Quality VTE Deep Vein Thrombosis/Pulmonary Embolism Present on Admission: No
[2018-11-22 16:30] VITALS: BP 137/87; PULSE 85; RESP 20; TEMP 37.2
--- NOTE | 2018-11-22 16:50 | CM.DPC ---
Pt. plan is to be D/C home with daily infusions here at our infusion clinic of 1 gm erdapenum x 6 weeks qd. Julee ([id number]) from Dr. Morales's office working authorization today. Pt. had PICC line placed tonight and received first infusion today. Dr. Mendosa to write D/C orders when ready
--- NOTE | 2018-11-22 18:08 | PC.NURSE ---
Addendum entered by Luba Hammond R.N. 11/22/18 21:48: Pt resting at intervals. Cooperative this evening. HS CBG = 183, S/S and lantus given as per orders. Wound vac intat/patent. Call light w/in reach, call s appropriately for neds. Continue w/plan of care. Original Note: Pt resting at intervals. Lungs diminished at bases, SpO2 94% RA Wound vac on left lower extremity intact/patent. JAISON PICC intact/patnet. AC CBG = 158, pt declined S/S Call light w/in reach, pt refused bed alarm, Calls appropriately for needs.
[2018-11-22 20:40] VITALS: BP 117/82; PULSE 86; RESP 18; TEMP 36.9; O2SAT 94
[2018-11-22] MEDS: MELATONIN 3 MG TABLET 9 MG PO (20:48)
[2018-11-22] MEDS: DOCUSATE 100 MG CAPSULE PO (20:48)
--- NOTE | 2018-11-23 01:07 | PC.NURSE ---
Pt. sleeping soundly, will monitor & assess when he wakes up.
[2018-11-23 03:00] VITALS: BP 143/104; PULSE 92; RESP 18; TEMP 36.9; O2SAT 94
[2018-11-23 05:34] VITALS: BP 128/72; PULSE 81
[2018-11-23] MEDS: ACETAMINOPHEN 325 MG TABLET 975 MG PO ×2 (08:00→16:44)
[2018-11-23] MEDS: NICOTINE 14 PATCH 14 MG TOP (08:00)
[2018-11-23] MEDS: ENOXAPARIN 40 MG/0.4 ML SYRINGE SUBCUT (08:00)
[2018-11-23] MEDS: ASPIRIN EC 81 MG TABLET PO ×2 (08:00→22:36)
[2018-11-23] MEDS: METFORMIN HCL 500 MG TABLET 1000 MG PO ×2 (08:00→16:44)
[2018-11-23] MEDS: SODIUM CHLORIDE 0.9% FLUSH 10 ML IV ×2 (08:01→22:37)
[2018-11-23] MEDS: INSULIN GLARGINE 100 UNIT/ML 3ML PEN 30 UNIT SUBCUT (08:03)
[2018-11-23] MEDS: INSULIN ASPART 100 UNIT/ML INSULN PEN SUBCUT ×3 (08:03→16:45)
[2018-11-23] MEDS: ERTAPENEM 1 GM in SODIUM CHLORIDE 0.9% 100 ML IV (08:05)
--- NOTE | 2018-11-23 13:27 | P.PN_ITS ---
Subjective Subjective Date Patient Seen: 11/23/18 Time Patient Seen: 12:45 Interval history: Patient has no complaints today though he is reliving his frustrations being discharged from the wound Care Center. He would like to be able to go back there as getting to [facility] for wound care is quite difficult for him. He states it will take him all day to take the bus and he worries about being able to make it to his infusion appointments as well as wound care. Exam Vital Signs (past 8 hours): - 11/23/18 05:34 Pulse Rate 81 Blood Pressure 128/72 Fraction of Inspired Oxygen 21 Oxygen Delivery Method Room Air Oxygen Flow Rate 0 Narrative Exam Narrative: General: Resting in bed. Long hair and poor dentition. Irritable today. HEENT: NCAT, EOMI, moist oral mucosa CV: Regular rate and rhythm, no murmurs, rubs or gallops Lungs: CTAB, no wheezes, rales, or rhonchi Extremities: Wound VAC in place on left leg. No edema. Objective Labs Result Diagrams: 11/20/18 05:53 11/20/18 05:53 Assessment & Plan Assessment and plan (1) Homeless: Current visit: Yes Status: Chronic (2) Chronic osteomyelitis: Current visit: Yes Status: Acute (3) Uncontrolled type 2 diabetes mellitus with diabetic polyneuropathy, with long-term current use of insulin: Current visit: Yes Status: Chronic (4) Diabetic ulcer of left foot associated with type 2 diabetes mellitus: Current visit: Yes Status: Chronic Assessment & Plan narrative: Patient remains in the hospital receiving IV ertapenem and wound care for left diabetic foot ulcer. We are working on sett ing him up at the infusion center for 6 weeks of ertapenem. Today I met with Kat with care management as well Alysa from wound care in [place]. Fortunately the [facility] ([place]) has agreed to take patient back for wound care. I greatly appreciate this as I do not believe patient would be compliant with frequent trips to [facility] by the bus to wound care there. Plan is to start infusions on 11/25/18 at the Infusion Center if we can get this set up. Will verify that this is done prior to discharge tomorrow. Will also need to coordinate follow-up at [facility]. Please refer to progress note from 9/9/19 detailing his outpatient antibiotic regimen per Infectious Disease. Anticipate discharge tomorrow if wound care and infusion appointments are set up. Quality VTE Deep Vein Thrombosis/Pulmonary Embolism Present on Admission: No
--- NOTE | 2018-11-23 14:13 | P.PN_ITS ---
Subjective Subjective Date Patient Seen: 11/23/18 Time Patient Seen: 13:35 Interval history: Patient lying in bed in no acute distress. He is resting comfortably. Exam Vital Signs (past 8 hours): Fraction of Inspired Oxygen 21 Oxygen Delivery Method Room Air Oxygen Flow Rate 0 Narrative Exam Narrative: Patient lying in bed in no acute distress. Left wound VAC is operating. Dressing is CDI. Objective Labs Result Diagrams: 11/20/18 05:53 11/20/18 05:53 Assessment & Plan Post-op Postoperative Procedures: Procedures Operation Date: 11/19/18 15:30 Actual Procedures Side Surgeon p Excisional debridement diabetic ulcer foot WITH APPLICATION OF WOUND VAC Left Radha Mendosa MD His wound VAC was changed yesterday. Per Dr. Barbour previous note; Plan maintain wound VAC until date of discharge. Plan for this likely on Thursday. Patient has outpatient appointment with [facility] wound care on at 9:30 a.m. will need antibiotic plan prior to discharge. Appreciate Medicine service diligent coordination of care and diabetic management for this patient. She had discussed again with patient the importance of glucose control and adherence to antibiotic therapy and wound therapy visits. Offloading left lower extremity Quality VTE Deep Vein Thrombosis/Pulmonary Embolism Present on Admission: No
--- NOTE | 2018-11-23 14:52 | CM.DPC ---
DCP Cont: SW met with Dr. Morales, RN, and Wound RN Alysa regarding pt's d/c plan and concerns with pt successfully going to wound clinic in [facility] for ongoing follow up. Per Dr. Morales and Dr. Mendosa's note, appears pt will not d/c with a wound vac at this time but will follow up with Wound Care as an outpt to determine if wound vac needed at that time or not. Alysa Wound RN returned and updated staff that [facility] is now willing to continue working with the pt at their clinic and likely will have pt sign a contract to continue receiving services through their clinic and therefore pt will not have to navigate getting to [facility] for regular follow up. SW called Dr. Morales's office and spoke to her RN Cherie who states that they faxed Reji the request for auth for the Erdapenum IV-Abx needed at d/c and Mendoza approved for the 4-6 weeks IV-Abx from 11/25/18-01-07-19 and that no pre auth required for the [id number]. SW attempted to call Infusion Clinic to confirm that they have everything that they need for pt's likely d/c tomorrow for ongoing outpt infusion Erdapenum and had to leave a message. Plan: DCP to follow closely for return call from Infusion Clinic to confirm that pt will be set up for his dose of medication on and that pt receives his dose of IV-Abx here at the hospital tomorrow prior to d/c home. Pt to have follow up with [facility] [place] here in [place] at d/c. ANGIE Damian
[2018-11-23 15:35] VITALS: BP 136/95; PULSE 94; RESP 16; TEMP 36.8; O2SAT 92
--- NOTE | 2018-11-23 17:56 | PC.NURSE ---
Addendum entered by Luba Hammond R.N. 11/23/18 21:32: HS CBG = 176, scheduled lantus given as per orders. Wound vac intact/patent. JAISON PICC intact/patent. Condition remains essentially unchanged. Call light w/in reach, calls appropriately for needs. Continue w/plan of care. Original Note: Pt resting at intervals Denies discomfort at this time. Lungs clear, SpO2 95% RA Wound vac to left lower leg intact/patent. AC CBG = 186, 2u S/S insulin given as per orders. Calll light w/in reach, call appropriately for needs.
[2018-11-23] MEDS: INSULIN GLARGINE 100 UNIT/ML 3ML PEN 32 UNIT SUBCUT (20:54)
[2018-11-23] MEDS: MELATONIN 3 MG TABLET 9 MG PO (22:36)
--- NOTE | 2018-11-24 03:48 | PC.NURSE ---
Addendum entered by Yoandy Pérez R.N. 11/24/18 07:02: 0635: Awakened for vital signs- vital signs stable. Pt irritible and declining nursing cares but allowed vital signs to be done. 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 PICC in place in lt upper arm. Respirations unlabored. Dressing to lt foot is cdi, with wound vac in place and remains on. Pt not awakened at this time.
[2018-11-24 06:33] VITALS: BP 125/79; PULSE 75; RESP 18; TEMP 36.8; O2SAT 95
--- NOTE | 2018-11-24 07:05 | P.PN_ITS ---
Subjective Subjective Date Patient Seen: 11/24/18 Time Patient Seen: 07:05 Interval history: Status post repeat debridement left foot diabetic ulcer and wound VAC placement. Patient resting comfortably this morning. Pleasant mood. Patient appears grateful that and [facility] wound care has agreed to see him. No complaints. Exam Vital Signs (past 8 hours): - 11/24/18 06:33 Temperature 98.3 F Pulse Rate 75 Respiratory Rate 18 Blood Pressure 125/79 Pulse Oximetry 95 Fraction of Inspired Oxygen 21 Oxygen Delivery Method Room Air Oxygen Flow Rate 0 Narrative Exam Narrative: Alert and oriented no acute distress Respiratory unlabored room air Extremities: Wound VAC on left foot this is removed today. Wound measures 5 x 5.5 cm x 0.5 cm deep. [place] bleeding tissue. No purulence. No necrotic tissue. Clean wound bed no surrounding erythema or fluctuance. Wet-to-dry dressing placed. Objective Labs Result Diagrams: 11/20/18 05:53 11/20/18 05:53 Assessment & Plan Post-op Postoperative Procedures: Procedures Operation Date: 11/19/18 15:30 Actual Procedures Side Surgeon p Excisional debridement diabetic ulcer foot WITH APPLICATION OF WOUND VAC Left Radha Mendosa MD 1. Wound VAC removed today and wet to dry dressing placed in anticipation of discharge. Discharge once IV antibiotics are set up and wound care appointme nts. Will likely resume negative pressure therapy with wound care. Once again discussed the utmost importance of offloading on the foot as well as receiving his IV antibiotics and not missing his wound care visits. Also discussed importance of diabetic control. Once [facility] wound care set up for sure with dates, appreciate notification and will provide courtesy call [facility] wound Care to let them know that patient has been able to be worked in [employer] Patient is followed by infectious disease [facility] doctor Rosalie Appreciate Dr. Morales's expertise and effort in coordination of care for this patient and his multiple medical and social comorbidities. 2. Discussed mainstay of treatment will be wound care and IV antibiotics and offloading diabetic control. Follow up with Orthopedics for wound check in 2 weeks to evaluate progress. Quality VTE Deep Vein Thrombosis/Pulmonary Embolism Present on Admission: No
[2018-11-24 07:25] VITALS: BP 130/85; PULSE 87; RESP 20; TEMP 36.5
[2018-11-24] MEDS: METFORMIN HCL 500 MG TABLET 1000 MG PO (08:11)
[2018-11-24] MEDS: ASPIRIN EC 81 MG TABLET PO (08:12)
[2018-11-24] MEDS: ERTAPENEM 1 GM in SODIUM CHLORIDE 0.9% 100 ML IV (08:12)
[2018-11-24] MEDS: ENOXAPARIN 40 MG/0.4 ML SYRINGE SUBCUT (08:12)
[2018-11-24] MEDS: ACETAMINOPHEN 325 MG TABLET 975 MG PO (08:13)
[2018-11-24] MEDS: SODIUM CHLORIDE 0.9% FLUSH 10 ML IV (08:14)
[2018-11-24] MEDS: INSULIN GLARGINE 100 UNIT/ML 3ML PEN 32 UNIT SUBCUT (08:15)
[2018-11-24] MEDS: INSULIN ASPART 100 UNIT/ML INSULN PEN SUBCUT (08:16)
[2018-11-24 08:27] LABS: Add Manual Diff / Slide Review NO; Basophils Absolute Auto 100 /uL (0-100); Eosinophils Absolute Auto 300 /uL (0-450); Eosinophils Percent Auto 4.6 % (2-4); Hemoglobin 15.5 g/dL (13.5-17.5); Lymphocytes Absolute Auto 1600 /uL (1100-4500); Lymphocytes Percent Auto 22.6 % (25-40); Mean Corpuscular HGB Conc 33.1 % (30-36); Mean Corpuscular Hemoglobin 28.4 PG (26-34); Monocytes Absolute Auto 500 /uL (0-900); Monocytes Percent Auto 6.8 % (3-14); Neutrophils Absolute Auto 4700 /uL (1500-7000); Platelet Count 305 X10^3/uL (150-400); Red Blood Cell Count 5.47 X10^6/uL (4.5-5.9); Red Cell Distribution Width 16.1 % (11.6-14.8); White Blood Cell Count 7.2 X10^3/uL (4.5-11.0)
--- NOTE | 2018-11-24 08:35 | PM.DS.1 ---
History of Present Illness History of Present Illness Date Patient Seen: 11/24/18 Time Patient Seen: 07:40 Chief complaint: Diabetic foot ulcer Narrative: Patient is a 58-year-old male with uncontrolled type 2 diabetes, chronic left foot diabetic ulcer and Charcot foot, tobacco use and homelessness. He was hospitalized earlier this year for several weeks after debridement of his foot with Dr. Mendosa. He subsequently discharged to detention for prolonged IV antibiotics but ultimately left Against Medical Advice. He was readmitted in August however left AMA again and was subsequently fired by the wound care clinic at [facility]. Over the summer he has been following with Dr. Mendosa for his wound as well as Infectious Disease occasionally. He was receiving regular dressing changes at [facility] until he stopped coming in favor of having dressing changes at the walk in clinic infrequently. Most recently he saw Dr. Mendosa who recommended debridement in the operating room with wound VAC and subsequent outpatient management with wound care in [facility] as well as Infectious Disease. Patient is seen after his procedure today and has no complaints. He agrees to stay in the hospital for the next several days and be compliant with the plan of care. He continues to smoke regularly but states, not much. Requests melatonin for sleep. Discharge Providers Provider Date of admission: 11/19/18 13:33 Discharge Date: 11/24/18 Primary care physician: Madeline Morales DO Consults: 11/19/18 18:06 Consult to Discharge Planning Routine Comment: abx -pending cx and infectious disease recs Consult to Physical Therapy Evaluate & Treat Comment: nwb or as much weight off as possible LLE Physician Instructions: Evaluate and Treat Consult to Physician Routine Comment: Consulting Provider: Madeline Morales Reason for consultation: medical management-- diabetes Has provider been notified: Yes 11/19/18 18:19 Consult to Discharge Planning Routine Comment: 11/19/18 19:08 Consult to Dietitian, Adult Routine Comment: Reason For Exam: homeless; food insecurity Discharge provider: Madeline Morales DO Summary Hospital Course Discharge Diagnosis: Left diabetic foot ulcer Chronic osteomyelitis Uncontrolled type 2 diabetes Tobacco use Homelessness Borderline personality disorder Hospital Course: Patient underwent debridement and bone biopsy with Dr. Mendosa in the operating room on 11/19/18. New cultures were taken. Patient received empiric antibiotics for osteomyelitis well awaiting final culture results. Culture results came back with Morganella, ESBL Klebsiella pneumonia and Proteus mirabilis. Dr. Wiggins with Infectious Disease was updated on his culture results and recommended 6 weeks of IV ertapenem as well as weekly CBC, CMP, ESR and CRP. He received a PICC line and was started on ertapenem in the hospital. Patient remained in the hospital while coordinating care and establishing a firm outpatient plan. Fortunately the wound care center in [place] has agreed to take him back for wound care. I believe this is vital for healing of his foot as going to [facility] for wound care is quite difficult for him with the bus. Blood sugars were reasonably controlled in the hospital with metformin and insulin however his A1c is again over 12. Patient states he was not using his insulin over the summer because he thought it had to be kept cool. He was advised that he can use insulin at room temperature. Patient was again counseled on the importance of glycemic control for wound healing. He understands and states he will use his metformin and insulin as prescribed. 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 The much larger issue is his homelessness. He has burned many bridges in the past and is quite limited with respect to resources. retirement is not an option for him locally and would not cover his ertapenem infusions anyway. Appreciate care management assistance in this department as well as the assistance of ANGIE Elias as an outpatient. The patient would greatly benefit from a case coordinator of some sort to help him navigate the system. I strongly feel that if he is able to lay flat at night to reduce edema and eat regularly, at his foot can heal. There was discussion of possible assistance through Health Home. When he previously had the support of a pillowcase maker he came to appointments reasonably groomed with his dentures and glasses. Patient will have appointments at wound care and the infusion center tomorrow. He needs to follow up with Dr. Mendosa and Dr. Morales in 2 weeks. He is scheduled to see infectious disease next week. Status at Discharge Cognitive/behavioral status at discharge: at baseline, oriented Overall status at discharge: patient is back to baseline Time Spent with Patient Time spent: Greater than 30 minutes Exam Vital Signs (past 8 hours): - 11/24/18 06:33 11/24/18 07:25 Temperature 98.3 F 97.7 F Pulse Rate 75 87 Respiratory Rate 18 20 Blood Pressure 125/79 130/85 Pulse Oximetry 95 Fraction of Inspired Oxygen 21 Oxygen Delivery Method Room Air Oxygen Flow Rate 0 Narrative Exam Narrative: General: Sitting up in bed, comfortable HEENT: NCAT, EOMI, moist oral mucosa CV: Regular rate and rhythm, no murmurs, rubs or gallops Lungs: CTAB, no wheezes, rales, or rhonchi Extremities: Dressing in place on left leg. No edema bilaterally Psych: AAOx3. Polite and pleasant. Objective Labs Result Diagrams: 11/24/18 07:47 11/24/18 07:47 Discharge Plan Discharge Plan Patient Disposition: Home Discharge Med Rec/Prescriptions Prescriptions: Continued metformin 1,000 mg tablet 1,000 mg PO BID Qty: 180 RF: 3 Lantus Solostar U-100 Insulin 100 unit/mL (3 mL) insulin pen 32 unit subcut BID Qty: 15 RF: 3 melatonin 9 mg 9 mg PO BEDTIME PRN (Reason: Sleep) RF: 0 Follow up/Referrals: [facility] [Outside] - 1 Day (Needs appointment scheduled for 11/25/18 prior to hospital discharge) [facility] [Outside] - 1 Day (Infusion Center, needs appt 11/25/18 prior to hospital discharge) Rosalie Nieves MD [Non-Staff] - 1 Week (This is scheduled, patient should have date and time) Radha Mendosa MD [Physician] - 2 Weeks Madeline Morales DO [Primary Care Provider] - 2 Weeks Provider Discharge Instructions Diet: Diet as Tolerated Skin/Wound/Dressing Care Report to your healthcare provider any signs of infection, such as:: chills, fever, night sweats, increased pain, unusual drainage and unusual redness Visit Report/Discharge Packet Instructions: DI for Incision and Drainage Discharge Data Primary Care Provider: Madeline Morales VTE Deep Vein Thrombosis/Pulmonary Embolism Present on Admission: No
[2018-11-24 08:40] LABS: Alanine Aminotransferase 39 IU/L (21-72); Albumin Globulin Ratio 1.1 (1.0-2.8); Alkaline Phosphatase 81 U/L (38-126); Aspartate Aminotransferase 44 IU/L (17-59); BUN Creatinine Ratio 26.3 (6-22); Bilirubin Total 0.4 mg/dL (0.2-1.3); Blood Urea Nitrogen 21 mg/dL (9-20); Calcium 9.4 mg/dL (8.4-10.2); Carbon Dioxide 29 mmol/L (22-32); Chloride 101 mmol/L (98-107); Estimated Glomerular Filt Rate > 60.0 mL/min (>60); Globulin 3.7 g/dL (1.7-4.1); Glucose 142 mg/dL (70-100); HEMOLYSIS < 15 (0-50); Potassium 4.4 mmol/L (3.4-5.1); Sodium 140 mmol/L (137-145); Total Protein 7.7 g/dL (6.3-8.2)
[2018-11-24 09:03] LABS: Erythrocyte Sedimentation Rate 10 MM/HR (0-15)
--- NOTE | 2018-11-24 09:36 | PC.NURSE ---
Late Entry: Wound Nurse Consult Note. While I was up seeing patients in the hospital yesterday, I was asked by Mr. Givens's nurse if we were going to take Mr. Givens as a patient at the [facility]. I told her it was my understanding that we were not. Dr. Morales and ANGIE Stephens were also in the hallway and asked about the wound care center following up. We had a discussion and I told them I would speak with the patient and with Dr. Lee. Mr. Givens does want to follow up with the wound care center. I spoke with Lauren Max the Supervisor [employer] and Bhargav Lee and they will take Mr. Givens as a patient but he will have to sign an agreement for wound care compliance. I spoke to ANGIE Stephens, Mr Givens and informed Dr. Morales's office. Mr. Givens has agreed to sign a contract for wound care compliance and understands the implications if he does not participate and comply with his wound care plan of care.
[2018-11-24] MEDS: NICOTINE 14 PATCH 14 MG TOP (10:18)
--- NOTE | 2018-11-24 12:34 | PC.NURSE ---
Addendum entered by Magdalena Haider R.N. 11/24/18 12:37: Went over discharge instructions and medications with patient. Pt states he is [place] the bus [place] [facility] medications. Pt given list of follow up appts for wound care, infusion clinic, Dr Mendosa, Dr Morales, and infectious disease MD in [facility]. Patient agreeable to appointments and verbalized understanding. Picc dressing changed, patient instructed to keep clean and dry. Patient also instructed to keep left foot dressing clean and dry and to leave intact until wound care appt on ThursdayNov 26. Pt escorted to main entrance on hospital where he was waiting for the bus. Patient had all belongings. Original Note: Dr Mendosa in this morning and removed wound vac. Redressed wound for discharge.
--- NOTE | 2018-11-24 13:28 | CM.DPC ---
DCP: continued: case receivedff this morning and discussed with Dr. Morales and the CM team uncluding BLANE RN, Brooch Maker Novelty and UNDERBASTER on for the day. Was advised that pt was stable for d/c from hospital setting and that he should go today once all the details of the d/c plan were in place. Various members of the care team worked on parts of this plan, including DEIDRE Garzon who coordinated all the OUTPT appoints/setting up dates and times. Confirmation was received that the Infusion Center has been faxed a copy of the referral for the IV antibiotics, sent from clinic by Dr. Morales and the response from [facility] that the treatment had been authorized. Daily infusion of IV antibiotic will start 11/25 at 1330. Spoke with reset merchandiser Alysa Lau/ wound care clinic, confirmed 11/26 appt there [address] Jiménez. Alysa will be looking at wound vac placement and until this occurs pt will have current dressing in place. Dr. Mendosa will see pt at 12/12 at 1100/[facility]. Received a call from Brady Perkins: ANGIE who follows for Behavioral Health needs to assist client who go to the clinics. She stated she had been assisting Dr. Morales with this pt since he left [facility] in August. She confirmed that he now has a cell phone as she helped him obtain this. She also stated that she helped pt with his [facility] application and this was mailed early in . Hopefully she can continue to assist Dr. Morales with his pt. Dr. Morales sees him in clinic again 12/13. Brooch Maker Novelty advises that the focus today is to have pt d/c today with the specifics of what is needed now for this d/c in place. Went to room to check in with pt and discussion with ZULLY Mcnair, caring for pt today. He was up, dressed, in his personal w/c and had gone over all of the paperwork for d/c with Magdalena. He was just leaving, smiling and waving at staff. Was escorted out of building with plan to return to his prior living situation/homeless.
== END 2018-11-24 12:42 | disposition home or self-care (01) | DRG 314 ==
LOC: OR 11-20 13:18
PROVIDERS: Admitting Provider Orthopaedic Surgery Foot and Ankle Surgery; PCP Family Medicine; Visit Provider Orthopaedic Surgery Foot and Ankle Surgery
PROC: 0QBM0ZZ Excision of Left Tarsal, Open Approach (ICD-10-PCS; principal; 2018-11-19 15:30)
DX: E11.69 Type 2 diabetes mellitus with other specified complication (principal); E11.42 Type 2 diabetes mellitus with diabetic polyneuropathy; E11.621 Type 2 diabetes mellitus with foot ulcer; E11.610 Type 2 diabetes mellitus with diabetic neuropathic arthropathy; L97.424 Non-pressure chronic ulcer of left heel and midfoot with necrosis of bone; M86.672 Other chronic osteomyelitis, left ankle and foot; E11.65 Type 2 diabetes mellitus with hyperglycemia; Z59.0 Homelessness; Z91.19 Patient's noncompliance with other medical treatment and regimen; E11.52 Type 2 diabetes mellitus with diabetic peripheral angiopathy with gangrene; I96 Gangrene, not elsewhere classified; F60.3 Borderline personality disorder; Z79.4 Long term (current) use of insulin; F17.210 Nicotine dependence, cigarettes, uncomplicated; M14.672 Charcot's joint, left ankle and foot; J44.9 Chronic obstructive pulmonary disease, unspecified
CPT/HCPCS: 36415; 36573; 80048; 80053; 80069; 80202; 82962; 83036; 85025; 85651; 86140; 87070; 87075; 87077; 87186; 87205; 87801; 94760; 97161; 99233; 99239; 99252; J0295; J0690; J1335; J1650; J2250; J2543; J2704

== ENCOUNTER → 2018-11-26 08:47 | Outpatient (CLI) | payer OTHER, MEDICAID, SELFPAY ==
[2018-11-19 19:04] VITALS: BMI 33.0
== END ==
PROVIDERS: PCP Family Medicine; Visit Provider Family Medicine
DX: E11.621 Type 2 diabetes mellitus with foot ulcer (principal); L97.524 Non-pressure chronic ulcer of other part of left foot with necrosis of bone; L97.421 Non-pressure chronic ulcer of left heel and midfoot limited to breakdown of skin; M86.672 Other chronic osteomyelitis, left ankle and foot; F17.200 Nicotine dependence, unspecified, uncomplicated
CPT/HCPCS: 11042; 11045; 97607; 99213; 99214

== ENCOUNTER → 2018-11-29 12:09 | Outpatient (CLI) | payer OTHER, MEDICAID, SELFPAY ==
[2018-11-19 19:04] VITALS: BMI 33.0
== END ==
PROVIDERS: PCP Family Medicine; Visit Provider Family Medicine
DX: E11.621 Type 2 diabetes mellitus with foot ulcer (principal); L97.524 Non-pressure chronic ulcer of other part of left foot with necrosis of bone; M86.672 Other chronic osteomyelitis, left ankle and foot; F17.200 Nicotine dependence, unspecified, uncomplicated
CPT/HCPCS: 99213; 99214

== ENCOUNTER → 2018-12-03 10:58 | Outpatient (CLI) | payer OTHER, MEDICAID, SELFPAY ==
[2018-11-19 19:04] VITALS: BMI 33.0
== END ==
PROVIDERS: PCP Family Medicine; Visit Provider Family Medicine
DX: E11.621 Type 2 diabetes mellitus with foot ulcer (principal); L97.524 Non-pressure chronic ulcer of other part of left foot with necrosis of bone; M86.672 Other chronic osteomyelitis, left ankle and foot; F17.200 Nicotine dependence, unspecified, uncomplicated
CPT/HCPCS: 11042; 97605

== ENCOUNTER → 2018-12-06 10:56 | Outpatient (CLI) | payer OTHER, MEDICAID, SELFPAY ==
[2018-11-19 19:04] VITALS: BMI 33.0
== END ==
PROVIDERS: PCP Family Medicine; Visit Provider Family Medicine
DX: E11.621 Type 2 diabetes mellitus with foot ulcer (principal); L97.524 Non-pressure chronic ulcer of other part of left foot with necrosis of bone; M86.672 Other chronic osteomyelitis, left ankle and foot; F17.200 Nicotine dependence, unspecified, uncomplicated
CPT/HCPCS: 97605; 99213

== ENCOUNTER → 2018-12-08 14:30 | Outpatient (CLI) | payer OTHER, MEDICAID, SELFPAY ==
[2018-11-19 19:04] VITALS: BMI 33.0
== END ==
PROVIDERS: PCP Family Medicine; Visit Provider Family Medicine
DX: E11.621 Type 2 diabetes mellitus with foot ulcer (principal); L97.526 Non-pressure chronic ulcer of other part of left foot with bone involvement without evidence of necrosis
CPT/HCPCS: 97605; 99214

== ENCOUNTER → 2018-12-10 08:51 | Outpatient (CLI) | payer OTHER, MEDICAID, SELFPAY ==
[2018-11-19 19:04] VITALS: BMI 33.0
== END ==
PROVIDERS: PCP Family Medicine; Visit Provider Family Medicine
DX: E11.621 Type 2 diabetes mellitus with foot ulcer (principal); L97.526 Non-pressure chronic ulcer of other part of left foot with bone involvement without evidence of necrosis; M86.672 Other chronic osteomyelitis, left ankle and foot; M14.672 Charcot's joint, left ankle and foot; Z79.4 Long term (current) use of insulin; F17.200 Nicotine dependence, unspecified, uncomplicated
CPT/HCPCS: 11044; 11047; 97605

== ENCOUNTER → 2018-12-13 09:13 | Outpatient (CLI) | payer OTHER, MEDICAID, SELFPAY ==
[2018-11-19 19:04] VITALS: BMI 33.0
== END ==
PROVIDERS: PCP Family Medicine; Visit Provider Podiatrist Primary Podiatric Medicine
DX: E11.621 Type 2 diabetes mellitus with foot ulcer (principal); L97.526 Non-pressure chronic ulcer of other part of left foot with bone involvement without evidence of necrosis
CPT/HCPCS: 97605

== ENCOUNTER → 2018-12-17 10:12 | Outpatient (CLI) | payer OTHER, MEDICAID, SELFPAY ==
[2018-11-19 19:04] VITALS: BMI 33.0
== END ==
PROVIDERS: PCP Family Medicine; Visit Provider Family Medicine
DX: E11.621 Type 2 diabetes mellitus with foot ulcer (principal); E11.65 Type 2 diabetes mellitus with hyperglycemia; L97.526 Non-pressure chronic ulcer of other part of left foot with bone involvement without evidence of necrosis; M86.672 Other chronic osteomyelitis, left ankle and foot; Z79.4 Long term (current) use of insulin
CPT/HCPCS: 11043; 11046; 97605

== ENCOUNTER → 2018-12-20 08:32 | Outpatient (CLI) | payer OTHER, MEDICAID, SELFPAY ==
[2018-11-19 19:04] VITALS: BMI 33.0
== END ==
PROVIDERS: PCP Family Medicine; Visit Provider Podiatrist Primary Podiatric Medicine
DX: L97.526 Non-pressure chronic ulcer of other part of left foot with bone involvement without evidence of necrosis (principal)
CPT/HCPCS: 97605

== ENCOUNTER → 2018-12-22 08:44 | Outpatient (CLI) | payer OTHER, MEDICAID, SELFPAY ==
[2018-11-19 19:04] VITALS: BMI 33.0
== END ==
PROVIDERS: PCP Family Medicine; Visit Provider Family Medicine
DX: E11.621 Type 2 diabetes mellitus with foot ulcer (principal); M86.672 Other chronic osteomyelitis, left ankle and foot; L97.523 Non-pressure chronic ulcer of other part of left foot with necrosis of muscle; M14.672 Charcot's joint, left ankle and foot; F17.200 Nicotine dependence, unspecified, uncomplicated
CPT/HCPCS: 11043; 11046; 97605

== ENCOUNTER → 2018-12-24 10:13 | Outpatient (CLI) | payer OTHER, MEDICAID, SELFPAY ==
[2018-11-19 19:04] VITALS: BMI 33.0
== END ==
PROVIDERS: PCP Family Medicine; Visit Provider Family Medicine
DX: E11.621 Type 2 diabetes mellitus with foot ulcer (principal); L97.528 Non-pressure chronic ulcer of other part of left foot with other specified severity
CPT/HCPCS: 97605

== ENCOUNTER → 2018-12-27 08:44 | Outpatient (CLI) | payer OTHER, MEDICAID, SELFPAY ==
[2018-11-19 19:04] VITALS: BMI 33.0
[2018-12-27 09:26] LABS: Add Manual Diff / Slide Review NO; Basophils Absolute Auto 100 /uL (0-100); Eosinophils Absolute Auto 400 /uL (0-450); Eosinophils Percent Auto 3.6 % (2-4); Hematocrit 42.3 % (41-53); Hemoglobin 14.2 g/dL (13.5-17.5); Lymphocytes Absolute Auto 1800 /uL (1100-4500); Lymphocytes Percent Auto 16.2 % (25-40); Mean Corpuscular HGB Conc 33.5 % (30-36); Mean Corpuscular Hemoglobin 28.4 PG (26-34); Mean Corpuscular Volume 84.6 fL (80-100); Monocytes Absolute Auto 1000 /uL (0-900); Neutrophils Absolute Auto 7800 /uL (1500-7000); Neutrophils Percent Auto 70.2 % (50-75); Platelet Count 285 X10^3/uL (150-400); Red Blood Cell Count 4.99 X10^6/uL (4.5-5.9); Red Cell Distribution Width 16.1 % (11.6-14.8); White Blood Cell Count 11.1 X10^3/uL (4.5-11.0)
[2018-12-27 09:43] LABS: Alanine Aminotransferase 10 IU/L (21-72); Albumin 4.2 g/dL (3.5-5.0); Albumin Globulin Ratio 1.1 (1.0-2.8); Alkaline Phosphatase 129 U/L (38-126); Aspartate Aminotransferase 16 IU/L (17-59); BUN Creatinine Ratio 23.3 (6-22); Bilirubin Total 0.3 mg/dL (0.2-1.3); Blood Urea Nitrogen 21 mg/dL (9-20); Calcium 9.2 mg/dL (8.4-10.2); Carbon Dioxide 29 mmol/L (22-32); Chloride 95 mmol/L (98-107); Estimated Glomerular Filt Rate > 60.0 mL/min (>60); Globulin 3.9 g/dL (1.7-4.1); Glucose 361 mg/dL (70-100); HEMOLYSIS < 15 (0-50); Potassium 4.4 mmol/L (3.4-5.1); Sodium 133 mmol/L (137-145); Total Protein 8.1 g/dL (6.3-8.2)
[2018-12-27 10:39] LABS: Erythrocyte Sedimentation Rate 19 MM/HR (0-15)
[2018-12-27 10:51] LABS: C-Reactive Protein Quant 3.6 mg/dL (<1.0)
== END ==
PROVIDERS: PCP Family Medicine; Visit Provider Podiatrist Primary Podiatric Medicine
DX: E11.621 Type 2 diabetes mellitus with foot ulcer (principal); L97.528 Non-pressure chronic ulcer of other part of left foot with other specified severity
CPT/HCPCS: 80053; 85025; 85651; 86140; 97605

== ENCOUNTER → 2018-12-29 08:57 | Outpatient (CLI) | payer OTHER, MEDICAID, SELFPAY ==
[2018-11-19 19:04] VITALS: BMI 33.0
== END ==
PROVIDERS: PCP Family Medicine; Visit Provider Family Medicine
DX: E11.621 Type 2 diabetes mellitus with foot ulcer (principal); L97.526 Non-pressure chronic ulcer of other part of left foot with bone involvement without evidence of necrosis; M86.672 Other chronic osteomyelitis, left ankle and foot; M14.672 Charcot's joint, left ankle and foot; F17.200 Nicotine dependence, unspecified, uncomplicated
CPT/HCPCS: 11042; 97605

== ENCOUNTER → 2018-12-29 10:52 | Outpatient (CLI) | payer OTHER, MEDICAID, SELFPAY ==
[2018-11-19 19:04] VITALS: BMI 33.0
[2018-12-29 11:46] LABS: Add Manual Diff / Slide Review NO; Basophils Absolute Auto 100 /uL (0-100); Eosinophils Absolute Auto 200 /uL (0-450); Eosinophils Percent Auto 2.5 % (2-4); Hematocrit 42.5 % (41-53); Hemoglobin 13.9 g/dL (13.5-17.5); Lymphocytes Absolute Auto 1800 /uL (1100-4500); Lymphocytes Percent Auto 19.8 % (25-40); Mean Corpuscular HGB Conc 32.7 % (30-36); Mean Corpuscular Hemoglobin 27.8 PG (26-34); Monocytes Absolute Auto 700 /uL (0-900); Monocytes Percent Auto 7.7 % (3-14); Neutrophils Absolute Auto 6400 /uL (1500-7000); Platelet Count 307 X10^3/uL (150-400); Red Cell Distribution Width 16.2 % (11.6-14.8); White Blood Cell Count 9.3 X10^3/uL (4.5-11.0)
[2018-12-29 12:09] LABS: Erythrocyte Sedimentation Rate 21 MM/HR (0-15)
[2018-12-29 13:53] LABS: C-Reactive Protein Quant 3.7 mg/dL (<1.0)
== END ==
PROVIDERS: PCP Family Medicine; Visit Provider Family Medicine
DX: M86.672 Other chronic osteomyelitis, left ankle and foot (principal)
CPT/HCPCS: 36415; 85025; 85651; 86140

== ENCOUNTER → 2018-12-31 09:18 | Outpatient (CLI) | payer OTHER, MEDICAID, SELFPAY ==
[2018-11-19 19:04] VITALS: BMI 33.0
== END ==
PROVIDERS: PCP Family Medicine; Visit Provider Family Medicine
DX: E11.621 Type 2 diabetes mellitus with foot ulcer (principal); L97.526 Non-pressure chronic ulcer of other part of left foot with bone involvement without evidence of necrosis
CPT/HCPCS: 99212

== ENCOUNTER → 2019-01-03 09:24 | Outpatient (CLI) | payer OTHER, MEDICAID, SELFPAY ==
[2018-11-19 19:04] VITALS: BMI 33.0
== END ==
PROVIDERS: PCP Family Medicine; Visit Provider Podiatrist Primary Podiatric Medicine
DX: E11.621 Type 2 diabetes mellitus with foot ulcer (principal); L97.526 Non-pressure chronic ulcer of other part of left foot with bone involvement without evidence of necrosis
CPT/HCPCS: 97605

== ENCOUNTER → 2019-01-06 09:00 | Oncology outpatient (ONC) | payer OTHER, MEDICAID, SELFPAY ==
[2018-11-19 19:04] VITALS: BMI 33.0
[2018-11-25] MEDS: ERTAPENEM 1 GM in SODIUM CHLORIDE 0.9% 100 ML 200 ML IV (11:41)
[2018-11-25 11:49] VITALS: BP 133/91; PULSE 88; RESP 20; TEMP 37; O2SAT 95
--- NOTE | 2018-11-25 13:00 | PC.NURSE ---
picc site and under tegaderm bloody. drsg changed and site clean and intact.
[2018-11-26 10:35] VITALS: BP 140/88; PULSE 102; RESP 16; TEMP 36.4; O2SAT 97
[2018-11-26] MEDS: ERTAPENEM 1 GM in SODIUM CHLORIDE 0.9% 100 ML 200 ML IV (10:36)
[2018-11-27 10:18] VITALS: BP 150/90; PULSE 95; RESP 20; TEMP 36.7; O2SAT 94
[2018-11-27] MEDS: ERTAPENEM 1 GM in SODIUM CHLORIDE 0.9% 100 ML 200 ML IV (10:29)
--- NOTE | 2018-11-27 10:31 | PC.NURSE ---
Addendum entered by Roly Fierro R.N. 11/27/18 11:07: SNAP CANISTER WITH DRAINAGE FILLED TO 20ML OUT OF 60ML POTENTIAL VOLUME, WHEN PATIENT LEFT AFTER INFUSION. Original Note: PATIENT BROUGHT IN NEW SNAP COLLECTION CANISTER WITH HIM TODAY. THE CURRENT ONE WAS FULL OF SOMEWHAT BLOODY DRAINAGE. THE DRAINAGE IN THE TUBE, IS A SEROUS/SANG LIGHT BROWNISH COLOR. HE WAS ABLE TO DISCONNECT AND RECONNECT THE CANISTER INDEP WITH THIS ELECTRIC METER INSTALLER STANDING BY. IV INFUSION STARTED PER ORDERS.
[2018-11-28 10:22] VITALS: BP 125/86; PULSE 89; RESP 20; TEMP 36.6
[2018-11-28] MEDS: ERTAPENEM 1 GM in SODIUM CHLORIDE 0.9% 100 ML 200 ML IV (10:24)
--- NOTE | 2018-11-28 10:25 | PC.NURSE ---
Pt arrived without overt compliant voicing that his drain was filling,but they'll change it tomorrow. Pt settled to bed and infusion begun. Picc and dressing cdi and patent.
[2018-11-29] MEDS: ERTAPENEM 1 GM in SODIUM CHLORIDE 0.9% 100 ML 200 ML IV (10:36)
[2018-11-29 10:40] VITALS: BP 113/87; PULSE 92; RESP 20; TEMP 36.7; O2SAT 92
[2018-11-30 09:17] VITALS: BP 132/94; PULSE 95; RESP 18; TEMP 36.8; O2SAT 93
[2018-11-30] MEDS: ERTAPENEM 1 GM in SODIUM CHLORIDE 0.9% 100 ML 200 ML IV (09:18)
[2018-12-01 13:57] VITALS: BP 130/77; PULSE 101; RESP 20; TEMP 36.9; O2SAT 96
[2018-12-01] MEDS: ERTAPENEM 1 GM in SODIUM CHLORIDE 0.9% 100 ML 200 ML IV (13:59)
[2018-12-02] MEDS: ERTAPENEM 1 GM in SODIUM CHLORIDE 0.9% 100 ML 200 ML IV (09:49)
[2018-12-02 09:56] VITALS: BP 154/100; PULSE 92; RESP 20; TEMP 37.1; O2SAT 92
[2018-12-02 09:58] LABS: Add Manual Diff / Slide Review NO; Basophils Absolute Auto 100 /uL (0-100); Basophils Percent Auto 1.4 % (0-2); Eosinophils Absolute Auto 300 /uL (0-450); Eosinophils Percent Auto 4.1 % (2-4); Hematocrit 41.8 % (41-53); Lymphocytes Absolute Auto 1800 /uL (1100-4500); Lymphocytes Percent Auto 24.2 % (25-40); Mean Corpuscular HGB Conc 33.6 % (30-36); Mean Corpuscular Hemoglobin 28.4 PG (26-34); Mean Corpuscular Volume 84.7 fL (80-100); Monocytes Absolute Auto 600 /uL (0-900); Monocytes Percent Auto 7.8 % (3-14); Neutrophils Absolute Auto 4500 /uL (1500-7000); Neutrophils Percent Auto 62.5 % (50-75); Platelet Count 356 X10^3/uL (150-400); Red Blood Cell Count 4.94 X10^6/uL (4.5-5.9); White Blood Cell Count 7.3 X10^3/uL (4.5-11.0)
[2018-12-02 10:12] LABS: Alanine Aminotransferase 21 IU/L (21-72); Albumin Globulin Ratio 1.1 (1.0-2.8); Alkaline Phosphatase 103 U/L (38-126); Aspartate Aminotransferase 18 IU/L (17-59); BUN Creatinine Ratio 23.8 (6-22); Bilirubin Total 0.4 mg/dL (0.2-1.3); Blood Urea Nitrogen 19 mg/dL (9-20); C-Reactive Protein Quant 1.8 mg/dL (<1.0); Calcium 9.2 mg/dL (8.4-10.2); Carbon Dioxide 28 mmol/L (22-32); Chloride 99 mmol/L (98-107); Estimated Glomerular Filt Rate > 60.0 mL/min (>60); Globulin 3.7 g/dL (1.7-4.1); Glucose 368 mg/dL (70-100); HEMOLYSIS < 15 (0-50); Potassium 4.3 mmol/L (3.4-5.1); Sodium 138 mmol/L (137-145); Total Protein 7.7 g/dL (6.3-8.2)
[2018-12-02 10:19] LABS: Erythrocyte Sedimentation Rate 27 MM/HR (0-15)
[2018-12-03 09:21] VITALS: BP 129/92; PULSE 92; RESP 20; TEMP 36.4; O2SAT 93
[2018-12-03] MEDS: ERTAPENEM 1 GM in SODIUM CHLORIDE 0.9% 100 ML 200 ML IV (09:23)
[2018-12-04 11:25] VITALS: BP 120/78; PULSE 85; RESP 20; TEMP 36.9; O2SAT 92
[2018-12-04] MEDS: ERTAPENEM 1 GM in SODIUM CHLORIDE 0.9% 100 ML 200 ML IV (11:26)
[2018-12-04 12:29] VITALS: BP 120/84; PULSE 90; RESP 20; TEMP 36.8
--- NOTE | 2018-12-04 13:24 | PC.NURSE ---
OP Infusion- Pt arrived at 1110 via wheelchair indep, settled into room 203 in bed. VSS, afebrile, no voiced concerns today. pt given water and a half sandwich. JAISON PICC [place]ong flushed well with brisk blood return. Infusion completed without issue. Flushed with NS per hospital policy and protocol. Pt wanted to take a nap after infusion complete. Pt left unit with all belongings at 1324 via wheelchair and his cane.
[2018-12-05 09:03] VITALS: BP 131/78; PULSE 91; RESP 20; TEMP 36.3; O2SAT 91
--- NOTE | 2018-12-05 09:10 | PC.NURSE ---
Addendum entered by Beverly Larose R.N. 12/05/18 10:19: Infusion complete without issue. JAISON PICC flushed well with brisk blood return. 5ml NS flush per hospital policy and protocol. Pt left unit at 1018 indep transferring to wheelchair, pt left in no distress. Original Note: OP Infusion- Pt arrive indep in wheelchair at 0855 to unit. Settled into bed in room 201. Wound VAC in place to left foot, no reported issues. JAISON Groshong blue line flushes well with brisk blood return. Last dressing change dated for 12/02. VSS, afebrile.
[2018-12-05] MEDS: ERTAPENEM 1 GM in SODIUM CHLORIDE 0.9% 100 ML 200 ML IV (09:29)
[2018-12-06 09:21] VITALS: BP 151/94; PULSE 91; RESP 20; TEMP 37.1; O2SAT 96
[2018-12-06] MEDS: ERTAPENEM 1 GM in SODIUM CHLORIDE 0.9% 100 ML 200 ML IV (09:38)
[2018-12-06 09:39] LABS: Add Manual Diff / Slide Review NO; Basophils Absolute Auto 100 /uL (0-100); Eosinophils Absolute Auto 300 /uL (0-450); Eosinophils Percent Auto 3.7 % (2-4); Hematocrit 40.6 % (41-53); Hemoglobin 13.6 g/dL (13.5-17.5); Lymphocytes Absolute Auto 1600 /uL (1100-4500); Lymphocytes Percent Auto 21.8 % (25-40); Mean Corpuscular HGB Conc 33.5 % (30-36); Mean Corpuscular Hemoglobin 28.3 PG (26-34); Mean Corpuscular Volume 84.5 fL (80-100); Monocytes Absolute Auto 500 /uL (0-900); Monocytes Percent Auto 7.6 % (3-14); Neutrophils Absolute Auto 4800 /uL (1500-7000); Neutrophils Percent Auto 65.9 % (50-75); Platelet Count 314 X10^3/uL (150-400); Red Blood Cell Count 4.81 X10^6/uL (4.5-5.9); White Blood Cell Count 7.2 X10^3/uL (4.5-11.0)
[2018-12-06 09:59] LABS: Erythrocyte Sedimentation Rate 28 MM/HR (0-15)
[2018-12-06 10:16] LABS: Alanine Aminotransferase 18 IU/L (21-72); Albumin 3.7 g/dL (3.5-5.0); Albumin Globulin Ratio 1.1 (1.0-2.8); Alkaline Phosphatase 104 U/L (38-126); Aspartate Aminotransferase 14 IU/L (17-59); BUN Creatinine Ratio 27.1 (6-22); Bilirubin Total 0.4 mg/dL (0.2-1.3); Blood Urea Nitrogen 19 mg/dL (9-20); C-Reactive Protein Quant 1.5 mg/dL (<1.0); Calcium 8.9 mg/dL (8.4-10.2); Carbon Dioxide 27 mmol/L (22-32); Chloride 98 mmol/L (98-107); Estimated Glomerular Filt Rate > 60.0 mL/min (>60); Globulin 3.5 g/dL (1.7-4.1); Glucose 297 mg/dL (70-100); HEMOLYSIS < 15 (0-50); Potassium 4.1 mmol/L (3.4-5.1); Sodium 136 mmol/L (137-145); Total Protein 7.2 g/dL (6.3-8.2)
[2018-12-07] MEDS: ERTAPENEM 1 GM in SODIUM CHLORIDE 0.9% 100 ML 200 ML IV (10:13)
[2018-12-07 10:17] VITALS: BP 131/98; PULSE 97; RESP 18; TEMP 36.9; O2SAT 91
[2018-12-08 09:49] VITALS: BP 125/93; PULSE 90; RESP 20; TEMP 36.6; O2SAT 93
[2018-12-08] MEDS: ERTAPENEM 1 GM in SODIUM CHLORIDE 0.9% 100 ML 200 ML IV (10:03)
[2018-12-09 09:54] VITALS: BP 145/91; PULSE 87; RESP 20; TEMP 36.6; O2SAT 92
[2018-12-09] MEDS: ERTAPENEM 1 GM in SODIUM CHLORIDE 0.9% 100 ML 200 ML IV (10:03)
[2018-12-10 11:00] VITALS: BP 140/102; PULSE 97; RESP 16; TEMP 36.8; O2SAT 94
[2018-12-10] MEDS: ERTAPENEM 1 GM in SODIUM CHLORIDE 0.9% 100 ML 200 ML IV (11:06)
--- NOTE | 2018-12-10 11:21 | PC.NURSE ---
PATIENT IN GOOD SPIRITS TODAY. ARRIVED FROM WOUND CLINIC APPT. HE REQUESTED THAT THIS RN CALL DR MEJIA'S OFFICE TO REQUEST THAT IS LANTUS NEEDLES BE RE-ORDERED AND FAXED TO HIS [facility] IN [place]. THIS RN SPOKE WITH MANAGEMENT ARCHITECT KAREEM, WHO WILL GET THE MSG TO DR. MEJIA.
[2018-12-11 08:52] VITALS: BP 153/86; PULSE 106; RESP 20; TEMP 36.7; O2SAT 93
[2018-12-11] MEDS: ERTAPENEM 1 GM in SODIUM CHLORIDE 0.9% 100 ML 200 ML IV (08:54)
[2018-12-12 09:15] VITALS: BP 124/87; PULSE 90; RESP 16; TEMP 35.8
[2018-12-12] MEDS: ERTAPENEM 1 GM in SODIUM CHLORIDE 0.9% 100 ML 200 ML IV (09:16)
--- NOTE | 2018-12-12 09:28 | PC.NURSE ---
Addendum entered by Hosea Garcia R.N. 12/18/18 10:26: Pt arrived via home in w/c. settled to room. Picc accessed per protocal. Original Note: Pt arrived in w/c for abx. pt alert, soft spoken. settled to bed and napping instantly. IV abx as ordered. Picc dressing and patency intact.Pt offers no overt c/o
[2018-12-13 09:58] VITALS: BP 138/72; PULSE 82; RESP 16; TEMP 36.6; O2SAT 99
[2018-12-13] MEDS: ERTAPENEM 1 GM in SODIUM CHLORIDE 0.9% 100 ML 200 ML IV (10:00)
[2018-12-13 10:19] LABS: Alanine Aminotransferase 20 IU/L (21-72); Albumin 3.9 g/dL (3.5-5.0); Albumin Globulin Ratio 1.1 (1.0-2.8); Alkaline Phosphatase 116 U/L (38-126); Aspartate Aminotransferase 17 IU/L (17-59); BUN Creatinine Ratio 22.9 (6-22); Bilirubin Total 0.6 mg/dL (0.2-1.3); Blood Urea Nitrogen 16 mg/dL (9-20); C-Reactive Protein Quant 1.9 mg/dL (<1.0); Calcium 9.1 mg/dL (8.4-10.2); Carbon Dioxide 28 mmol/L (22-32); Chloride 100 mmol/L (98-107); Estimated Glomerular Filt Rate > 60.0 mL/min (>60); Globulin 3.7 g/dL (1.7-4.1); Glucose 278 mg/dL (70-100); HEMOLYSIS 18 (0-50); Potassium 4.5 mmol/L (3.4-5.1); Sodium 137 mmol/L (137-145); Total Protein 7.6 g/dL (6.3-8.2)
[2018-12-13 10:20] LABS: Add Manual Diff / Slide Review NO; Basophils Absolute Auto 100 /uL (0-100); Eosinophils Absolute Auto 300 /uL (0-450); Eosinophils Percent Auto 4.4 % (2-4); Hematocrit 42.2 % (41-53); Hemoglobin 14.2 g/dL (13.5-17.5); Lymphocytes Absolute Auto 1800 /uL (1100-4500); Lymphocytes Percent Auto 25.8 % (25-40); Mean Corpuscular HGB Conc 33.7 % (30-36); Mean Corpuscular Hemoglobin 28.4 PG (26-34); Mean Corpuscular Volume 84.3 fL (80-100); Monocytes Absolute Auto 600 /uL (0-900); Monocytes Percent Auto 8.3 % (3-14); Neutrophils Absolute Auto 4300 /uL (1500-7000); Neutrophils Percent Auto 60.5 % (50-75); Platelet Count 273 X10^3/uL (150-400); Red Blood Cell Count 5.01 X10^6/uL (4.5-5.9); Red Cell Distribution Width 16.4 % (11.6-14.8); White Blood Cell Count 7.1 X10^3/uL (4.5-11.0)
[2018-12-13 10:39] LABS: Erythrocyte Sedimentation Rate 29 MM/HR (0-15)
[2018-12-14 09:12] VITALS: BP 145/112; PULSE 80; RESP 20; TEMP 36.7; O2SAT 91
[2018-12-14] MEDS: ERTAPENEM 1 GM in SODIUM CHLORIDE 0.9% 100 ML 200 ML IV (09:42)
[2018-12-14 13:07] VITALS: BP 144/97; PULSE 89
[2018-12-15] MEDS: ERTAPENEM 1 GM in SODIUM CHLORIDE 0.9% 100 ML 200 ML IV (09:53)
[2018-12-16 09:22] VITALS: BP 150/87; PULSE 96; RESP 20; TEMP 37; O2SAT 93
[2018-12-16] MEDS: ERTAPENEM 1 GM in SODIUM CHLORIDE 0.9% 100 ML 200 ML IV (09:37)
[2018-12-17 10:45] VITALS: BP 135/79; PULSE 91; RESP 12; TEMP 36.8; O2SAT 92
[2018-12-17] MEDS: ERTAPENEM 1 GM in SODIUM CHLORIDE 0.9% 100 ML 200 ML IV (10:52)
[2018-12-18] MEDS: ERTAPENEM 1 GM in SODIUM CHLORIDE 0.9% 100 ML 200 ML IV (10:21)
[2018-12-18 10:23] VITALS: BP 129/85; PULSE 93; RESP 18; TEMP 36.5; O2SAT 94
[2018-12-19] MEDS: ERTAPENEM 1 GM in SODIUM CHLORIDE 0.9% 100 ML 200 ML IV (09:56)
[2018-12-19 10:03] VITALS: BP 131/87; PULSE 94; RESP 18; TEMP 36.7; O2SAT 96
--- NOTE | 2018-12-19 10:04 | PC.NURSE ---
Arrrived for ABX therapy. Offers no overt complaint. Settled to room, Picc accessed per protocal and ABX begun.
[2018-12-20] MEDS: ERTAPENEM 1 GM in SODIUM CHLORIDE 0.9% 100 ML 200 ML IV (09:41)
[2018-12-20 10:03] LABS: Erythrocyte Sedimentation Rate 38 MM/HR (0-15)
[2018-12-20 10:05] LABS: Add Manual Diff / Slide Review NO; Basophils Absolute Auto 100 /uL (0-100); Basophils Percent Auto 0.9 % (0-2); Eosinophils Absolute Auto 300 /uL (0-450); Eosinophils Percent Auto 3.5 % (2-4); Hemoglobin 13.7 g/dL (13.5-17.5); Lymphocytes Absolute Auto 1400 /uL (1100-4500); Lymphocytes Percent Auto 16.7 % (25-40); Mean Corpuscular HGB Conc 34.2 % (30-36); Mean Corpuscular Hemoglobin 28.8 PG (26-34); Mean Corpuscular Volume 84.3 fL (80-100); Monocytes Absolute Auto 800 /uL (0-900); Monocytes Percent Auto 9.5 % (3-14); Neutrophils Absolute Auto 5700 /uL (1500-7000); Neutrophils Percent Auto 69.4 % (50-75); Platelet Count 261 X10^3/uL (150-400); Red Blood Cell Count 4.74 X10^6/uL (4.5-5.9); Red Cell Distribution Width 15.9 % (11.6-14.8); White Blood Cell Count 8.2 X10^3/uL (4.5-11.0)
[2018-12-20 10:06] LABS: Alanine Aminotransferase 15 IU/L (21-72); Albumin 3.8 g/dL (3.5-5.0); Albumin Globulin Ratio 1.1 (1.0-2.8); Alkaline Phosphatase 121 U/L (38-126); Aspartate Aminotransferase 15 IU/L (17-59); Bilirubin Total 0.4 mg/dL (0.2-1.3); Blood Urea Nitrogen 26 mg/dL (9-20); C-Reactive Protein Quant 4.6 mg/dL (<1.0); Calcium 8.8 mg/dL (8.4-10.2); Carbon Dioxide 28 mmol/L (22-32); Chloride 98 mmol/L (98-107); Estimated Glomerular Filt Rate > 60.0 mL/min (>60); Globulin 3.5 g/dL (1.7-4.1); Glucose 279 mg/dL (70-100); HEMOLYSIS < 15 (0-50); Potassium 3.9 mmol/L (3.4-5.1); Sodium 136 mmol/L (137-145); Total Protein 7.3 g/dL (6.3-8.2)
[2018-12-20 10:19] VITALS: BP 116/74; PULSE 92; RESP 18; TEMP 36.3; O2SAT 93
[2018-12-21 09:26] VITALS: BP 105/73; PULSE 71; RESP 18; TEMP 36.9; O2SAT 95
[2018-12-21] MEDS: ERTAPENEM 1 GM in SODIUM CHLORIDE 0.9% 100 ML 200 ML IV (09:38)
[2018-12-22 11:50] VITALS: PULSE 98; RESP 20; TEMP 36.5; O2SAT 95
[2018-12-22] MEDS: ERTAPENEM 1 GM in SODIUM CHLORIDE 0.9% 100 ML 200 ML IV (11:52)
[2018-12-22 12:13] VITALS: BP 153/95
[2018-12-23 08:59] VITALS: BP 122/76; PULSE 75; RESP 16; TEMP 36.8; O2SAT 95
[2018-12-23] MEDS: ERTAPENEM 1 GM in SODIUM CHLORIDE 0.9% 100 ML 200 ML IV (09:00)
[2018-12-24 09:24] VITALS: BP 110/69; PULSE 86; RESP 14; TEMP 36.8; O2SAT 92
[2018-12-24] MEDS: ERTAPENEM 1 GM in SODIUM CHLORIDE 0.9% 100 ML 200 ML IV (09:45)
[2018-12-25 09:00] VITALS: BP 142/89; PULSE 96; RESP 14; TEMP 36; O2SAT 94
[2018-12-25] MEDS: ERTAPENEM 1 GM in SODIUM CHLORIDE 0.9% 100 ML 200 ML IV (09:19)
[2018-12-26 10:15] VITALS: BP 144/62; PULSE 97; RESP 20; TEMP 36.8; O2SAT 95
[2018-12-26] MEDS: ERTAPENEM 1 GM in SODIUM CHLORIDE 0.9% 100 ML 200 ML IV (10:17)
[2018-12-27 09:25] VITALS: BP 150/97; PULSE 92; RESP 18; TEMP 36.8; O2SAT 93
[2018-12-27] MEDS: ERTAPENEM 1 GM in SODIUM CHLORIDE 0.9% 100 ML 200 ML IV (09:34)
[2018-12-28] MEDS: ERTAPENEM 1 GM in SODIUM CHLORIDE 0.9% 100 ML 200 ML IV (13:37)
[2018-12-28 13:38] VITALS: BP 127/84; PULSE 82; RESP 20; TEMP 36.9; O2SAT 94
[2018-12-29] MEDS: ERTAPENEM 1 GM in SODIUM CHLORIDE 0.9% 100 ML 200 ML IV (09:57)
[2018-12-29 10:05] VITALS: BP 129/86; PULSE 98; RESP 20; TEMP 36.8; O2SAT 96
[2018-12-30] MEDS: ERTAPENEM 1 GM in SODIUM CHLORIDE 0.9% 100 ML 200 ML IV (09:42)
[2018-12-31 09:30] VITALS: BP 155/56; PULSE 86; RESP 20; TEMP 36.8
[2018-12-31] MEDS: ERTAPENEM 1 GM in SODIUM CHLORIDE 0.9% 100 ML 200 ML IV (09:31)
--- NOTE | 2018-12-31 09:32 | PC.NURSE ---
Pt arrived for ABX Tx. Pt alert and oriented, in good spirits reporting they placed a skin graft yesterday. Pt settled in room. Med as ordered.
[2019-01-01] MEDS: ERTAPENEM 1 GM in SODIUM CHLORIDE 0.9% 100 ML 200 ML IV (10:31)
[2019-01-01 10:37] VITALS: BP 144/90; PULSE 86; RESP 22; TEMP 36.7; O2SAT 95
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
[2019-01-02 11:29] VITALS: BP 122/87; PULSE 98; RESP 16; TEMP 36.8; O2SAT 94
[2019-01-02] MEDS: ERTAPENEM 1 GM in SODIUM CHLORIDE 0.9% 100 ML 200 ML IV (11:39)
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
[2019-01-03] MEDS: ERTAPENEM 1 GM in SODIUM CHLORIDE 0.9% 100 ML 200 ML IV (10:09)
[2019-01-03 10:18] VITALS: BP 120/81; PULSE 100; RESP 20; TEMP 36.9; O2SAT 92
[2019-01-04] MEDS: ERTAPENEM 1 GM in SODIUM CHLORIDE 0.9% 100 ML 200 ML IV (12:45)
[2019-01-04 12:51] VITALS: BP 113/77; PULSE 89; RESP 16; TEMP 37; O2SAT 93
[2019-01-04 14:33] LABS: Add Manual Diff / Slide Review NO; Basophils Absolute Auto 100 /uL (0-100); Basophils Percent Auto 1.1 % (0-2); Eosinophils Absolute Auto 300 /uL (0-450); Hematocrit 43.7 % (41-53); Hemoglobin 14.4 g/dL (13.5-17.5); Lymphocytes Absolute Auto 1500 /uL (1100-4500); Lymphocytes Percent Auto 21.5 % (25-40); Mean Corpuscular Hemoglobin 27.7 PG (26-34); Monocytes Absolute Auto 400 /uL (0-900); Monocytes Percent Auto 6.1 % (3-14); Neutrophils Absolute Auto 4900 /uL (1500-7000); Neutrophils Percent Auto 67.3 % (50-75); Platelet Count 301 X10^3/uL (150-400); Red Cell Distribution Width 16.1 % (11.6-14.8); White Blood Cell Count 7.2 X10^3/uL (4.5-11.0)
[2019-01-04 14:43] LABS: Alanine Aminotransferase 12 IU/L (21-72); Albumin 3.7 g/dL (3.5-5.0); Albumin Globulin Ratio 1.1 (1.0-2.8); Alkaline Phosphatase 113 U/L (38-126); Aspartate Aminotransferase 16 IU/L (17-59); BUN Creatinine Ratio 26.3 (6-22); Bilirubin Total 0.4 mg/dL (0.2-1.3); Blood Urea Nitrogen 21 mg/dL (9-20); Calcium 8.8 mg/dL (8.4-10.2); Carbon Dioxide 28 mmol/L (22-32); Chloride 100 mmol/L (98-107); Estimated Glomerular Filt Rate > 60.0 mL/min (>60); Globulin 3.4 g/dL (1.7-4.1); Glucose 293 mg/dL (70-100); HEMOLYSIS < 15 (0-50); Potassium 4.8 mmol/L (3.4-5.1); Sodium 137 mmol/L (137-145); Total Protein 7.1 g/dL (6.3-8.2)
[2019-01-04 14:47] LABS: Erythrocyte Sedimentation Rate 28 MM/HR (0-15)
[2019-01-04 14:54] LABS: C-Reactive Protein Quant 1.2 mg/dL (<1.0)
[2019-01-05] MEDS: ERTAPENEM 1 GM in SODIUM CHLORIDE 0.9% 100 ML 200 ML IV (12:38)
[2019-01-05 12:52] VITALS: BP 134/89; PULSE 90; RESP 20; TEMP 36.9; O2SAT 94
[2019-01-06 09:31] VITALS: BP 118/97; PULSE 90; RESP 20; TEMP 36.7; O2SAT 92
--- NOTE | 2019-01-06 14:36 | PC.NURSE ---
VO FROM BECKIE/DR. MEJIA'S OFFICE; PLEASE REMOVE PICC LINE, PATIENT TO SENIOR COMMISSIONS ANALYST PRESCRIPTIONS FOR ORAL ANTIBIOTICS AT AND TO SEE INFECTIOUS DISEASE DOCTOR TOMORROW. PATIENT INFORMED. PATIENT STATES HE ALREADY KNOWS TO SENIOR COMMISSIONS ANALYST MEDS AT AND TO SEE TOMORROW.
[2019-01-06] MEDS: NEOMYCIN/POLYMYXIN/BACITRA UD OINT 1 EACH TOP (14:47)
--- NOTE | 2019-01-06 15:28 | PC.NURSE ---
pt itching sides of picc drsg to where skin is red and slightly open. reinforced pt not to itch area. PICC dc'd per protocol and pt decided not to stay 30 min for us to monitor him. pt becoming agitated. states needs his wound clinic appt.
== END ==
PROVIDERS: PCP Family Medicine; Visit Provider Family Medicine
DX: M86.60 Other chronic osteomyelitis, unspecified site (principal); E11.621 Type 2 diabetes mellitus with foot ulcer; L97.509 Non-pressure chronic ulcer of other part of unspecified foot with unspecified severity
CPT/HCPCS: 36592; 80053; 85025; 85651; 86140; 96365; 96523; 97605; J1335

== ENCOUNTER → 2019-01-10 08:28 | Outpatient (CLI) | payer OTHER, MEDICAID, SELFPAY ==
[2018-11-19 19:04] VITALS: BMI 33.0
== END ==
PROVIDERS: PCP Family Medicine; Visit Provider Podiatrist Primary Podiatric Medicine
DX: E11.621 Type 2 diabetes mellitus with foot ulcer (principal); L97.526 Non-pressure chronic ulcer of other part of left foot with bone involvement without evidence of necrosis; R60.0 Localized edema
CPT/HCPCS: 97605

== ENCOUNTER → 2019-01-10 09:21 | Outpatient (CLI) | payer OTHER, MEDICAID, SELFPAY ==
[2018-11-19 19:04] VITALS: BMI 33.0
[2019-01-12 19:29] LABS: Fructosamine 318 umol/L (205-285)
== END ==
PROVIDERS: PCP Family Medicine; Visit Provider Family Medicine
DX: E11.621 Type 2 diabetes mellitus with foot ulcer (principal)
CPT/HCPCS: 36415; 82985

== ENCOUNTER → 2019-01-17 08:33 | Outpatient (CLI) | payer OTHER, MEDICAID, SELFPAY ==
[2018-11-19 19:04] VITALS: BMI 33.0
== END ==
PROVIDERS: PCP Family Medicine; Visit Provider Family Medicine
DX: E11.621 Type 2 diabetes mellitus with foot ulcer (principal); L97.526 Non-pressure chronic ulcer of other part of left foot with bone involvement without evidence of necrosis
CPT/HCPCS: 97605

== ENCOUNTER → 2019-01-24 10:04 | Outpatient (CLI) | payer OTHER, MEDICAID, SELFPAY ==
[2018-11-19 19:04] VITALS: BMI 33.0
== END ==
PROVIDERS: PCP Family Medicine; Visit Provider Family Medicine
DX: E11.621 Type 2 diabetes mellitus with foot ulcer (principal); L97.526 Non-pressure chronic ulcer of other part of left foot with bone involvement without evidence of necrosis
CPT/HCPCS: 97605

== ENCOUNTER → 2019-01-31 08:55 | Outpatient (CLI) | payer OTHER, MEDICAID, SELFPAY ==
[2018-11-19 19:04] VITALS: BMI 33.0
== END ==
PROVIDERS: PCP Family Medicine; Visit Provider Family Medicine
DX: E11.621 Type 2 diabetes mellitus with foot ulcer (principal); L97.515 Non-pressure chronic ulcer of other part of right foot with muscle involvement without evidence of necrosis
CPT/HCPCS: 97605

== ENCOUNTER → 2019-02-07 11:55 | Outpatient (CLI) | payer OTHER, MEDICAID, SELFPAY ==
[2018-11-19 19:04] VITALS: BMI 33.0
== END ==
PROVIDERS: PCP Family Medicine; Visit Provider Family Medicine
DX: E11.621 Type 2 diabetes mellitus with foot ulcer (principal); L97.526 Non-pressure chronic ulcer of other part of left foot with bone involvement without evidence of necrosis
CPT/HCPCS: 97605

== ENCOUNTER → 2019-02-09 10:05 | Outpatient (CLI) | payer OTHER, MEDICAID, SELFPAY ==
[2018-11-19 19:04] VITALS: BMI 33.0
== END ==
PROVIDERS: PCP Family Medicine; Visit Provider Family Medicine
DX: E11.621 Type 2 diabetes mellitus with foot ulcer (principal); L97.528 Non-pressure chronic ulcer of other part of left foot with other specified severity; M86.672 Other chronic osteomyelitis, left ankle and foot; R60.0 Localized edema
CPT/HCPCS: 97605; 99213

== ENCOUNTER → 2019-02-14 08:34 | Outpatient (CLI) | payer OTHER, MEDICAID, SELFPAY ==
[2018-11-19 19:04] VITALS: BMI 33.0
== END ==
PROVIDERS: PCP Family Medicine; Visit Provider Family Medicine
DX: E11.621 Type 2 diabetes mellitus with foot ulcer (principal); L97.529 Non-pressure chronic ulcer of other part of left foot with unspecified severity
CPT/HCPCS: 97605

== ENCOUNTER → 2019-02-21 08:53 | Outpatient (CLI) | payer OTHER, MEDICAID, SELFPAY ==
[2018-11-19 19:04] VITALS: BMI 33.0
== END ==
PROVIDERS: PCP Family Medicine; Visit Provider Family Medicine
DX: E11.621 Type 2 diabetes mellitus with foot ulcer (principal); L97.521 Non-pressure chronic ulcer of other part of left foot limited to breakdown of skin
CPT/HCPCS: 97605

== ENCOUNTER → 2019-02-24 08:41 | Outpatient (CLI) | payer OTHER, MEDICAID, SELFPAY ==
[2018-11-19 19:04] VITALS: BMI 33.0
== END ==
PROVIDERS: PCP Family Medicine; Visit Provider Family Medicine
DX: E11.621 Type 2 diabetes mellitus with foot ulcer (principal); L97.521 Non-pressure chronic ulcer of other part of left foot limited to breakdown of skin; M14.672 Charcot's joint, left ankle and foot; R60.0 Localized edema
CPT/HCPCS: 11042; 97605

== ENCOUNTER → 2019-02-24 10:30 | Outpatient (CLI) | payer OTHER, MEDICAID, SELFPAY ==
[2018-11-19 19:04] VITALS: BMI 33.0
[2019-02-24 11:59] LABS: Add Manual Diff / Slide Review NO; Basophils Absolute Auto 100 /uL (0-100); Basophils Percent Auto 0.7 % (0-2); Eosinophils Absolute Auto 400 /uL (0-450); Eosinophils Percent Auto 5.2 % (2-4); Hematocrit 44.1 % (41-53); Hemoglobin 14.8 g/dL (13.5-17.5); Lymphocytes Absolute Auto 2100 /uL (1100-4500); Lymphocytes Percent Auto 23.9 % (25-40); Mean Corpuscular HGB Conc 33.6 % (30-36); Mean Corpuscular Hemoglobin 28.6 PG (26-34); Mean Corpuscular Volume 85.1 fL (80-100); Monocytes Absolute Auto 700 /uL (0-900); Monocytes Percent Auto 8.1 % (3-14); Neutrophils Absolute Auto 5300 /uL (1500-7000); Neutrophils Percent Auto 62.1 % (50-75); Platelet Count 241 X10^3/uL (150-400); Red Blood Cell Count 5.18 X10^6/uL (4.5-5.9); Red Cell Distribution Width 16.7 % (11.6-14.8); White Blood Cell Count 8.6 X10^3/uL (4.5-11.0)
[2019-02-24 12:25] LABS: Erythrocyte Sedimentation Rate 7 MM/HR (0-15)
[2019-02-24 12:27] LABS: Alanine Aminotransferase 15 IU/L (<50); Albumin 4.2 g/dL (3.5-5.0); Albumin Globulin Ratio 1.4 (1.0-2.8); Alkaline Phosphatase 109 U/L (38-126); Aspartate Aminotransferase 16 IU/L (17-59); BUN Creatinine Ratio 32.9 (6-22); Bilirubin Total 0.4 mg/dL (0.2-1.3); Blood Urea Nitrogen 23 mg/dL (9-20); C-Reactive Protein Quant 1.3 mg/dL (<1.0); Calcium 9.4 mg/dL (8.4-10.2); Carbon Dioxide 23 mmol/L (22-32); Chloride 99 mmol/L (98-107); Estimated Glomerular Filt Rate > 60.0 mL/min (>60); Globulin 3.1 g/dL (1.7-4.1); Glucose 386 mg/dL (70-100); HEMOLYSIS < 15 (0-50); Potassium 4.9 mmol/L (3.4-5.1); Sodium 135 mmol/L (137-145); Total Protein 7.3 g/dL (6.3-8.2)
== END ==
PROVIDERS: PCP Family Medicine; Visit Provider Internal Medicine Infectious Disease
DX: M86.9 Osteomyelitis, unspecified (principal); E11.42 Type 2 diabetes mellitus with diabetic polyneuropathy; E11.621 Type 2 diabetes mellitus with foot ulcer; E11.65 Type 2 diabetes mellitus with hyperglycemia; L97.529 Non-pressure chronic ulcer of other part of left foot with unspecified severity; M86.60 Other chronic osteomyelitis, unspecified site; Z79.4 Long term (current) use of insulin
CPT/HCPCS: 36415; 80053; 83036; 85025; 85651; 86140

== ENCOUNTER → 2019-02-28 09:04 | Outpatient (CLI) | payer OTHER, MEDICAID, SELFPAY ==
[2018-11-19 19:04] VITALS: BMI 33.0
== END ==
PROVIDERS: PCP Family Medicine; Visit Provider Family Medicine
DX: E11.621 Type 2 diabetes mellitus with foot ulcer (principal); L97.528 Non-pressure chronic ulcer of other part of left foot with other specified severity
CPT/HCPCS: 82043; 82570; 97605

== ENCOUNTER → 2019-02-28 10:18 | Outpatient (CLI) | payer OTHER, MEDICAID, SELFPAY ==
[2018-11-19 19:04] VITALS: BMI 33.0
[2019-02-28 11:18] LABS: Creatinine Urine Random 45.2 mg/dL
[2019-02-28 11:22] LABS: Microalbumi Creatinin Ratio Ur 90.7 ug/mg CR (<30); Microalbumin Urine Random 4.1 mg/dL (0-1.6)
== END ==
PROVIDERS: PCP Family Medicine; Visit Provider Family Medicine
DX: E11.42 Type 2 diabetes mellitus with diabetic polyneuropathy (principal); E11.621 Type 2 diabetes mellitus with foot ulcer; E11.65 Type 2 diabetes mellitus with hyperglycemia; L97.529 Non-pressure chronic ulcer of other part of left foot with unspecified severity; M86.60 Other chronic osteomyelitis, unspecified site; Z79.4 Long term (current) use of insulin
CPT/HCPCS: 82043; 82570

== ENCOUNTER → 2019-03-07 09:19 | Outpatient (CLI) | payer OTHER, MEDICAID, SELFPAY ==
[2018-11-19 19:04] VITALS: BMI 33.0
== END ==
PROVIDERS: PCP Family Medicine; Visit Provider Family Medicine
DX: E11.628 Type 2 diabetes mellitus with other skin complications (principal); S91.302A Unspecified open wound, left foot, initial encounter
CPT/HCPCS: 97605

== ENCOUNTER → 2019-03-14 13:04 | Outpatient (CLI) | payer OTHER, MEDICAID, SELFPAY ==
[2018-11-19 19:04] VITALS: BMI 33.0
== END ==
PROVIDERS: PCP Family Medicine; Visit Provider Family Medicine
DX: E11.621 Type 2 diabetes mellitus with foot ulcer (principal); L97.529 Non-pressure chronic ulcer of other part of left foot with unspecified severity
CPT/HCPCS: 97605

== ENCOUNTER → 2019-03-21 08:38 | Outpatient (CLI) | payer OTHER, MEDICAID, SELFPAY ==
[2018-11-19 19:04] VITALS: BMI 33.0
== END ==
PROVIDERS: PCP Family Medicine; Visit Provider Family Medicine
DX: E11.621 Type 2 diabetes mellitus with foot ulcer (principal); L97.528 Non-pressure chronic ulcer of other part of left foot with other specified severity
CPT/HCPCS: 97605

== ENCOUNTER → 2019-03-24 08:48 | Outpatient (CLI) | payer OTHER, MEDICAID, SELFPAY ==
[2018-11-19 19:04] VITALS: BMI 33.0
== END ==
PROVIDERS: PCP Family Medicine; Visit Provider Family Medicine
DX: E11.621 Type 2 diabetes mellitus with foot ulcer (principal); L97.528 Non-pressure chronic ulcer of other part of left foot with other specified severity; R60.0 Localized edema
CPT/HCPCS: 97605

== ENCOUNTER → 2019-03-28 09:13 | Outpatient (CLI) | payer OTHER, MEDICAID, SELFPAY ==
[2018-11-19 19:04] VITALS: BMI 33.0
== END ==
PROVIDERS: PCP Family Medicine; Visit Provider Family Medicine
DX: E11.621 Type 2 diabetes mellitus with foot ulcer (principal); L97.524 Non-pressure chronic ulcer of other part of left foot with necrosis of bone; R60.9 Edema, unspecified; Z79.4 Long term (current) use of insulin
CPT/HCPCS: 11044; 87070; 87075; 87077; 87147; 87186; 87205; 99214

== ENCOUNTER → 2019-03-28 12:55 | Outpatient (CLI) | payer OTHER, MEDICAID, SELFPAY ==
[2018-11-19 19:04] VITALS: BMI 33.0
[2019-03-28 13:46] LABS: Add Manual Diff / Slide Review NO; Basophils Absolute Auto 100 /uL (0-100); Basophils Percent Auto 0.9 % (0-2); Eosinophils Absolute Auto 200 /uL (0-450); Eosinophils Percent Auto 1.3 % (2-4); Hematocrit 44.7 % (41-53); Lymphocytes Absolute Auto 1600 /uL (1100-4500); Lymphocytes Percent Auto 13.4 % (25-40); Mean Corpuscular HGB Conc 33.6 % (30-36); Mean Corpuscular Hemoglobin 28.6 PG (26-34); Mean Corpuscular Volume 85.2 fL (80-100); Monocytes Absolute Auto 900 /uL (0-900); Monocytes Percent Auto 7.7 % (3-14); Neutrophils Absolute Auto 9100 /uL (1500-7000); Neutrophils Percent Auto 76.7 % (50-75); Platelet Count 237 X10^3/uL (150-400); Red Blood Cell Count 5.24 X10^6/uL (4.5-5.9); Red Cell Distribution Width 16.2 % (11.6-14.8); White Blood Cell Count 11.9 X10^3/uL (4.5-11.0)
[2019-03-28 14:08] LABS: Erythrocyte Sedimentation Rate 45 MM/HR (0-15)
[2019-03-28 14:23] LABS: C-Reactive Protein Quant 20.1 mg/dL (<1.0)
[2019-03-28 14:38] LABS: Procalcitonin < 0.05 ng/mL (<0.5)
== END ==
PROVIDERS: PCP Family Medicine; Visit Provider Family Medicine
DX: L08.9 Local infection of the skin and subcutaneous tissue, unspecified (principal); E11.621 Type 2 diabetes mellitus with foot ulcer; L97.524 Non-pressure chronic ulcer of other part of left foot with necrosis of bone; L03.116 Cellulitis of left lower limb
CPT/HCPCS: 11044; 36415; 83605; 84145; 85025; 85651; 86140; 87070; 87075; 87077; 87147; 87186; 87205

== ENCOUNTER 2019-03-29 10:56 | Inpatient (IN) | payer OTHER, MEDICAID, SELFPAY ==
[2018-11-19 19:04] VITALS: BMI 33.0
[2019-03-29] VITALS (7 sets, daily range): BP systolic 124–150; BP diastolic 77–100; PULSE 83–123; RESP 16–21; TEMP 35.5–40.4; O2SAT 91–98; BMI 33.0
--- NOTE | 2019-03-29 11:13 | DI.RAD.S_ITS ---
PROCEDURE: XR FOOT LT MIN 3V INDICATIONS: r/o osteomyelitis TECHNIQUE: 3 views of the foot were acquired. COMPARISON: [facility], CR, XR FOOT LT MIN 3V, 08/20/2018, 14:40. [facility], CR, XR FOOT LT MIN 3V, 06/10/2018, 10:34. FINDINGS: Bones: Morphology and appearance of the left foot indicates presence of Charcot joint with extensive distortion of the tarsal-metatarsal interfaces, chronic in appearance. However, there appears to be deep soft tissue ulceration at the medial aspect of the midfoot, superficial to the medial border of the first tarsal bone. There has been ostiolysis of this structure when compared to similar plain film imaging 08/20/18 and 06/10/18, with overlying dressing.. Soft tissues: No tibiotalar joint effusion. Achilles tendon appears normal. IMPRESSION: Charcot joint, active osteomyelitis appears present at the medial border of the first tarsal bone, where a deep soft tissue ulceration is present with overlying soft tissue dressing. MR scanning may be warranted for more accurate assessment. Dictated by: Bg Miguel M.D. on 03/29/2019 at 11:37 Approved by: Bg Miguel M.D. on 03/29/2019 at 11:39
--- NOTE | 2019-03-29 11:17 | ED.WOUNDLAC ---
HPI - Wound/Laceration <ROCÍO No - Last Filed: 03/29/19 20:14> General Chief Complaint: Wound/Laceration Stated Complaint: sent from wound care for antibiotics Time Seen by Provider: 03/29/19 10:59 Source: patient Mode of arrival: Wheelchair Limitations: no limitations History of Present Illness HPI narrative: 58 year old male with a history of COPD, smoking, diabetes, peripheral neuropathy, homelessness, and osteomyelitis, presents emergency department for a wound on his left foot for the past 5 years. He has had multiple skin grafts on this wound. He was seen at the wound clinic yesterday and a culture and biopsy were taken of the wound. Dr. Woo called him today and instructed that he presents emergency department for concerns of osteomyelitis. Patient states he was told at wound care that his foot had increased and temp. He denies increased pain, fevers, numbness, tingling, nausea, vomiting, diarrhea, abdominal pain, concerns. Related Data Home Medications Medication Instructions Recorded Confirmed melatonin 10 mg PO BEDTIME PRN #0 08/20/18 03/29/19 Lantus Solostar U-100 Insulin 40 - 45 unit SUBCUT BID 03/29/19 03/29/19 albuterol sulfate 1 - 2 puff INHALATION Q4-6H PRN 03/29/19 03/29/19 amoxicillin-pot clavulanate 1 tab PO BID 03/29/19 03/29/19 levofloxacin 750 mg PO DAILY 03/29/19 03/29/19 Previous Rx's Medication Instructions Recorded metformin 1,000 mg tablet 1,000 mg PO BID #180 tab 11/24/18 fluticasone propionate 50 1 spray NASAL BID #15.8 ml 03/04/19 mcg/actuation nasal spray,suspension pen needle, diabetic 31 gauge x #60 each 03/04/19 1/4 Allergies Allergy/AdvReac Type Severity Reaction Status Date / Time No Known Drug Allergies Allergy Verified 03/29/19 11:03 Review of Systems <ROCÍO No - Last Filed: 03/29/19 20:14> Review of Systems Narrative: REVIEW OF SYSTEMS: GENERAL: Denies fever or chills. HENT: Denies head trauma. EYE: Denies double vision or vision loss. CARDIOVASCULAR: Denies syncope. MUSCULOSKELETAL: Denies weakness, or deformities. INTEGUMENTARY: Complains of chronic wound to left foot, see HPI. NEURO: Denies numbness or tingling. 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 Son Medical history unknown Social History household members: none Smoking Status: Current every day smoker alcohol intake: former Smoking Status: Current every day smoker alcohol intake frequency: holidays/special occasions only Substance Use Type: does not use Exam <ROCÍO No - Last Filed: 03/29/19 20:14> Initial Vital Signs Initial Vital Signs: Vital Signs Temperature 95.9 F L 03/29/19 11:03 Pulse Rate 117 H 03/29/19 11:03 Respiratory Rate 16 03/29/19 11:03 Blood Pressure 124/100 H 03/29/19 11:03 Pulse Oximetry 98 03/29/19 11:03 PHYSICAL EXAMINATION: GENERAL: Alert, and cooperative, Poor hygiene. Answers questions promptly and appropriately. Vital signs noted. HENT: Normocephalic, atraumatic. RESPIRATORY: Normal respiratory rate, trachea midline, airway patent. No stridor, nasal flaring or accessory muscle use. CARD: Tachycardic, no murmurs. MUSCULOSKELETAL: Normal gait and coordination. Equal tone and mass bilaterally. EXTREMITIES: CMS intact. Moves all extremities. SKIN: Warm, dry, soft, appropriate color for ethnicity. Left foot with increased temp, erythema, and small amount of swelling Starting in the medial aspect of foot and extending to toes. There is a large deepwound with a central opening approximately 4cm in diameter moderate amount of point to brown exudate on wound packing. Very little sensation around wound area. No fluctuation NEURO: Alert and Oriented X 3. Good coordination. Decreased sensation to lower legs. PSYCH: Appropriate affect and mood. <Melanie Paiz DO - Last Filed: 04/01/19 07:32> Initial Vital Signs Initial Vital Signs: Vital Signs Temperature 95.9 F L 03/29/19 11:03 Pulse Rate 117 H 03/29/19 11:03 Respiratory Rate 16 03/29/19 11:03 Blood Pressure 124/100 H 03/29/19 11:03 Pulse Oximetry 98 03/29/19 11:03 Scores <ROCÍO No - Last Filed: 03/29/19 20:14> GCS Rachel coma scale eye opening: Spontaneous Rachel coma scale verbal response: Orientated Circle coma scale motor response: Obey commands Circle coma scale total score: 15 qSOFA Altered Mental Status (GCS <15): No Respiratory rate greater than/equal to 22: No Systolic blood pressure less than or equal to 100: No qSOFA Total: 0 0-1 Not High Risk 1-3 High risk Course <ROCÍO No - Last Filed: 03/29/19 20:14> Course Course Narrative: Patient but has improved after 1 L of normal saline and his pulse decreased from [address] was obtained with and without contrast per request of ortho rule out any abscess formation, Ortho requesting admission with IV antibiotics. Patient has a pending wound culture from yesterday which shows staph aureus without sensitization at this time, patient was started on Vanco to cover staph aureus. Patient's previous wound culture show sensitivity to Zosyn, patient was given a dose of Zosyn as well. Patient remains nontoxic appearing throughout the emergency department stay, afebrile, alert and awake. He is eating and drinking normally without complains of nausea. Due to increased blood sugars, 10 units of IV insulin was ordered per request of admitting provider, after much discussion with patient he states that he only takes Lantus at night and his blood sugars often run in the 200s, With this new info, 10 units subcu initially to a assess his response to insulin as he normally does not correct sugars. Dr. Mendosa saw patient in the ED, dressed wound. Orders Ordered: Acetaminophen (Tylenol) 650 mg PO Q6HR PRN PRN Reason: Fever/Mild Pain (1-3) Last Admin: 03/31/19 15:39 Dose: 650 mg Documented by: Admin: 03/30/19 03:31 Dose: 650 mg Documented by: Admin: 03/29/19 20:25 Dose: 650 mg Documented by: RAFA Flores Hydrox/Mg Hydrox/Simethicone (Maalox Plus) 30 ml PO Q6HR PRN PRN Reason: Dyspepsia Albuterol (Ventolin) 2.5 mg INH [id number] PRN PRN Reason: Shortness Of Breath Last Admin: 03/31/19 16:49 Dose: 2.5 mg Documented by: Admin: 03/30/19 21:30 Dose: 2.5 mg Documented by: ABIGAIL Bisacodyl (Dulcolax) 10 mg MS DAILY PRN PRN Reason: Constipation Calcium Carbonate (Tums) 1,000 mg PO Q4HR PRN PRN Reason: Dyspepsia Dextrose (D50w) 25 gm IV PRN PRN; Protocol PRN Reason: Hypoglycemia Enoxaparin Sodium (Lovenox) 40 mg SUBCUT DAILY [facility] Last Admin: 03/31/19 08:22 Dose: 40 mg Documented by: Admin: 03/30/19 09:19 Dose: 40 mg Documented by: SERVANDO Fluticasone Propionate (Flonase) 1 spray NASAL BID [facility] Last Admin: 03/31/19 20:21 Dose: 1 spray Documented by: Admin: 03/31/19 08:21 Dose: 1 spray Documented by: Admin: 03/30/19 20:14 Dose: 1 spray Documented by: Admin: 03/30/19 09:19 Dose: 1 spray Documented by: Admin: 03/29/19 20:25 Dose: 1 spray Documented by: RAFA Piperacillin/Tazobactam/Dextrose (Zosyn) 3.375 gm in 50 mls @ 100 mls/hr IV Q6H [facility] Last Infusion: 04/01/19 02:54 Dose: 0 mls/hr Documented by: Admin: 04/01/19 02:03 Dose: 100 mls/hr Documented by: Infusion: 03/31/19 21:18 Dose: 0 mls/hr Documented by: Admin: 03/31/19 20:20 Dose: 100 mls/hr Documented by: Infusion: 03/31/19 14:53 Dose: 0 mls/hr Documented by: Admin: 03/31/19 14:14 Dose: 100 mls/hr Documented by: Infusion: 03/31/19 09:25 Dose: 0 mls/hr Documented by: Admin: 03/31/19 08:22 Dose: 100 mls/hr Documented by: Infusion: 03/31/19 02:54 Dose: 0 mls/hr Documented by: Admin: 03/31/19 02:15 Dose: 100 mls/hr Documented by: Infusion: 03/30/19 20:39 Dose: 0 mls/hr Documented by: Admin: 03/30/19 20:09 Dose: 100 mls/hr Documented by: Infusion: 03/30/19 15:13 Dose: 0 mls/hr Documented by: Admin: 03/30/19 14:43 Dose: 100 mls/hr Documented by: Infusion: 03/30/19 09:20 Dose: 0 mls/hr Documented by: Admin: 03/30/19 08:12 Dose: 100 mls/hr Documented by: Infusion: 03/30/19 02:30 Dose: 100 mls/hr Documented by: Admin: 03/30/19 01:57 Dose: 100 mls/hr Documented by: Infusion: 03/29/19 20:49 Dose: 0 mls/hr Documented by: Admin: 03/29/19 20:19 Dose: 100 mls/hr Documented by: RAFA Vancomycin HCl (Vancomycin) 1,000 mg in 200 mls @ 200 mls/hr IV Q6H [facility] Admin: 04/01/19 02:53 Dose: 200 mls/hr Documented by: Infusion: 03/31/19 22:05 Dose: 0 mls/hr Documented by: Infusion: 03/31/19 22:01 Dose: 0 mls/hr Documented by: Admin: 03/31/19 20:21 Dose: 200 mls/hr Documented by: Infusion: 03/31/19 17:03 Dose: 0 mls/hr Documented by: Admin: 03/31/19 14:53 Dose: 200 mls/hr Documented by: Infusion: 03/31/19 10:25 Dose: 200 mls/hr Documented by: Admin: 03/31/19 09:25 Dose: 200 mls/hr Documented by: Infusion: 03/31/19 04:00 Dose: 0 mls/hr Documented by: Admin: 03/31/19 02:54 Dose: 200 mls/hr Documented by: Infusion: 03/30/19 21:54 Dose: 0 mls/hr Documented by: Admin: 03/30/19 20:54 Dose: 200 mls/hr Documented by: Infusion: 03/30/19 20:05 Dose: 0 mls/hr Documented by: Admin: 03/30/19 15:58 Dose: 200 mls/hr Documented by: Infusion: 03/30/19 10:15 Dose: 0 mls/hr Documented by: Admin: 03/30/19 09:18 Dose: 200 mls/hr Documented by: Infusion: 03/30/19 04:32 Dose: 200 mls/hr Documented by: Admin: 03/30/19 03:21 Dose: 200 mls/hr Documented by: Infusion: 03/29/19 22:09 Dose: 200 mls/hr Documented by: Admin: 03/29/19 21:09 Dose: 200 mls/hr Documented by: RAFA Sodium Chloride (Normal Saline 0.9%) 250 mls @ 21 mls/hr IV Q24H PRN PRN Reason: Flush Last Admin: 04/01/19 02:03 Dose: 21 mls/hr Documented by: JUVENAL Insulin Aspart (Novolog Flexpen) 0 unit SUBCUT ACHS NACHO; Protocol Last Admin: 03/31/19 22:05 Dose: 5 unit Documented by: LAW Cosigned by: SANCHEZ Admin: 03/31/19 17:05 Dose: 1 unit Documented by: LAW Cosigned by: SANCHEZ Admin: 03/31/19 12:25 Dose: 3 unit Documented by: BRANDON Cosigned by: ANÍBAL Admin: 03/31/19 08:23 Dose: 1 unit Documented by: SERVANDO Cosigned by: BRANDON Admin: 03/30/19 20:52 Dose: 2 unit Documented by: RAFA Cosigned by: SANCHEZ Admin: 03/30/19 16:55 Dose: 3 unit Documented by: RAFA Cosigned by: LAW Admin: 03/30/19 12:04 Dose: 3 unit Documented by: SERVANDO Cosigned by: RACHEL Admin: 03/30/19 09:19 Dose: 2 unit Documented by: SERVANDO Cosigned by: RACHEL Admin: 03/29/19 21:02 Dose: 4 unit Documented by: RAAF Cosigned by: SANCHEZ Insulin Glargine (Lantus Solostar (Pen)) 50 unit SUBCUT BID [facility] Last Admin: 03/31/19 22:04 Dose: 50 unit Documented by: LAW Cosigned by: SANCHEZ Magnesium Hydroxide (Milk Of Magnesia) 30 ml PO DAILY PRN PRN Reason: Constipation Melatonin (Melatonin) 9 mg PO BEDTIME PRN PRN Reason: Insomnia Naloxone HCl (Narcan) 0.2 mg IV Q2MIN PRN PRN Reason: Opiate Reversal Nicotine (Nicoderm) 14 mg TOP DAILY [facility] Last Admin: 03/31/19 08:22 Dose: 14 mg Documented by: Admin: 03/30/19 09:20 Dose: 14 mg Documented by: SERVANDO Nystatin (Nystatin Ointment) 1 applic TOP BID PRN PRN Reason: Rash Ondansetron HCl (Zofran) 4 mg IV Q6HR PRN PRN Reason: Nausea And Vomiting Promethazine HCl (Phenadoz) 12.5 mg MS Q6HR PRN PRN Reason: Nausea And Vomiting Sodium Chloride (Normal Saline 0.9% Flush) 10 ml IV PRN PRN PRN Reason: Flush Last Admin: 04/01/19 02:03 Dose: 10 ml Documented by: Admin: 03/31/19 02:16 Dose: 10 ml Documented by: JUVENAL Sodium Chloride (Normal Saline 0.9% Flush) 10 ml IV BID NACHO Last Admin: 03/31/19 20:21 Dose: 10 ml Documented by: Admin: 03/31/19 08:22 Dose: 10 ml Documented by: SERVANDO Vancomycin HCl (Vancomycin Trough) 1 request MISC 1430 [facility] Stop: 04/01/19 14:31 Discontinued Medications Sodium Chloride (Normal Saline 0.9%) 1,000 mls @ 1,000 mls/hr IV BOLUS ONE Stop: 03/29/19 12:18 Last Infusion: 03/29/19 14:28 Dose: 0 mls/hr Documented by: Admin: 03/29/19 11:43 Dose: 1,000 mls/hr Documented by: CASEY Vancomycin HCl/Dextrose (Vancomycin) 1,500 mg in 300 mls @ 200 mls/hr IV NOW ONE Stop: 03/29/19 14:57 Last Infusion: 03/29/19 16:26 Dose: 0 mls/hr Documented by: Admin: 03/29/19 14:48 Dose: 200 mls/hr Documented by: SPENCER Piperacillin/Tazobactam/Dextrose (Zosyn) 3.375 gm in 50 mls @ 100 mls/hr IV NOW ONE Stop: 03/29/19 14:00 Last Infusion: 03/29/19 14:46 Dose: 0 mls/hr Documented by: Admin: 03/29/19 14:15 Dose: 100 mls/hr Documented by: SPENCER Sodium Chloride (Normal Saline 0.9%) 1,000 mls @ 100 mls/hr IV CONT [facility] Last Infusion: 03/29/19 20:56 Dose: 0 mls/hr Documented by: Admin: 03/29/19 17:36 Dose: 100 mls/hr Documented by: RAFA Sodium Chloride (Normal Saline 0.9%) 1,000 mls @ 250 mls/hr IV BOLUS ONE Stop: 03/30/19 00:33 Last Infusion: 03/30/19 02:00 Dose: 250 mls/hr Documented by: Admin: 03/29/19 20:56 Dose: 250 mls/hr Documented by: RAFA Sodium Chloride (Normal Saline 0.9%) 1,000 mls @ 100 mls/hr IV CONT [facility] Last Infusion: 03/30/19 15:00 Dose: 0 mls/hr Documented by: Admin: 03/30/19 02:30 Dose: 100 mls/hr Documented by: NAMITA Insulin Glargine (Lantus Solostar (Pen)) 45 unit SUBCUT BID [facility] Last Admin: 03/31/19 08:26 Dose: 45 unit Documented by: SERVANDO Cosigned by: BRANDON Admin: 03/30/19 20:52 Dose: 45 unit Documented by: RAFA Cosigned by: SANCHEZ Admin: 03/30/19 09:19 Dose: 45 unit Documented by: SERVANDO Cosigned by: RACHEL Admin: 03/29/19 20:29 Dose: 45 unit Documented by: RAFA Cosigned by: SANCHEZ Insulin Human Regular (Humulin R) 10 unit IV NOW ONE Stop: 03/29/19 14:53 Last Admin: 03/29/19 15:08 Dose: Not Given Documented by: SPENCER Insulin Human Regular (Humulin R) 10 unit SUBCUT NOW ONE Stop: 03/29/19 15:05 Last Admin: 03/29/19 15:05 Dose: 10 unit Documented by: SPENCER Cosigned by: ISIDRA Nystatin (Nystop) 1 applic TOP BID PRN PRN Reason: Rash Potassium Chloride (Klor-Con M20) 40 meq PO NOW ONE Stop: 04/01/19 04:45 Last Admin: 04/01/19 05:52 Dose: 40 meq Documented by: JUVENAL Vancomycin HCl (Vancomycin Trough) 1 request [facility] 1430 [facility] Stop: 03/30/19 14:31 Last Admin: 03/30/19 15:57 Dose: 1 request Documented by: RAFA Consultations Consultation #1: Consulted Dr. Mendosa about patient, see above. Consultation #2: Report given to Dr. Buatista who accepts with Ortho consult. Consultation #3: Patient staffed with Dr. Paiz. Vital Signs Vital signs: Vital Signs - 8 hr 03/29/19 12:14 03/29/19 15:10 Pulse Rate 90 83 Respiratory Rate 21 21 Blood Pressure [Left Arm] 138/80 128/77 Pulse Oximetry 96 96 <Melanie Botnick, DO - Last Filed: 04/01/19 07:32> Orders Ordered: Acetaminophen (Tylenol) 650 mg PO Q6HR PRN PRN Reason: Fever/Mild Pain (1-3) Last Admin: 03/31/19 15:39 Dose: 650 mg Documented by: Admin: 03/30/19 03:31 Dose: 650 mg Documented by: Admin: 03/29/19 20:25 Dose: 650 mg Documented by: RAFA Al Hydrox/Mg Hydrox/Simethicone (Maalox Plus) 30 ml PO Q6HR PRN PRN Reason: Dyspepsia Albuterol (Ventolin) 2.5 mg INH [id number] PRN PRN Reason: Shortness Of Breath Last Admin: 03/31/19 16:49 Dose: 2.5 mg Documented by: Admin: 03/30/19 21:30 Dose: 2.5 mg Documented by: ABIGAIL Bisacodyl (Dulcolax) 10 mg MS DAILY PRN PRN Reason: Constipation Calcium Carbonate (Tums) 1,000 mg PO Q4HR PRN PRN Reason: Dyspepsia Dextrose (D50w) 25 gm IV PRN PRN; Protocol PRN Reason: Hypoglycemia Enoxaparin Sodium (Lovenox) 40 mg SUBCUT DAILY [facility] Last Admin: 03/31/19 08:22 Dose: 40 mg Documented by: Admin: 03/30/19 09:19 Dose: 40 mg Documented by: SERVANDO Fluticasone Propionate (Flonase) 1 spray NASAL BID [facility] Last Admin: 03/31/19 20:21 Dose: 1 spray Documented by: Admin: 03/31/19 08:21 Dose: 1 spray Documented by: Admin: 03/30/19 20:14 Dose: 1 spray Documented by: Admin: 03/30/19 09:19 Dose: 1 spray Documented by: Admin: 03/29/19 20:25 Dose: 1 spray Documented by: RAFA Piperacillin/Tazobactam/Dextrose (Zosyn) 3.375 gm in 50 mls @ 100 mls/hr IV Q6H [facility] Last Infusion: 04/01/19 02:54 Dose: 0 mls/hr Documented by: Admin: 04/01/19 02:03 Dose: 100 mls/hr Documented by: Infusion: 03/31/19 21:18 Dose: 0 mls/hr Documented by: Admin: 03/31/19 20:20 Dose: 100 mls/hr Documented by: Infusion: 03/31/19 14:53 Dose: 0 mls/hr Documented by: Admin: 03/31/19 14:14 Dose: 100 mls/hr Documented by: Infusion: 03/31/19 09:25 Dose: 0 mls/hr Documented by: Admin: 03/31/19 08:22 Dose: 100 mls/hr Documented by: Infusion: 03/31/19 02:54 Dose: 0 mls/hr Documented by: Admin: 03/31/19 02:15 Dose: 100 mls/hr Documented by: Infusion: 03/30/19 20:39 Dose: 0 mls/hr Documented by: Admin: 03/30/19 20:09 Dose: 100 mls/hr Documented by: Infusion: 03/30/19 15:13 Dose: 0 mls/hr Documented by: Admin: 03/30/19 14:43 Dose: 100 mls/hr Documented by: Infusion: 03/30/19 09:20 Dose: 0 mls/hr Documented by: Admin: 03/30/19 08:12 Dose: 100 mls/hr Documented by: Infusion: 03/30/19 02:30 Dose: 100 mls/hr Documented by: Admin: 03/30/19 01:57 Dose: 100 mls/hr Documented by: Infusion: 03/29/19 20:49 Dose: 0 mls/hr Documented by: Admin: 03/29/19 20:19 Dose: 100 mls/hr Documented by: RAFA Vancomycin HCl (Vancomycin) 1,000 mg in 200 mls @ 200 mls/hr IV Q6H [facility] Admin: 04/01/19 02:53 Dose: 200 mls/hr Documented by: Infusion: 03/31/19 22:05 Dose: 0 mls/hr Documented by: Infusion: 03/31/19 22:01 Dose: 0 mls/hr Documented by: Admin: 03/31/19 20:21 Dose: 200 mls/hr Documented by: Infusion: 03/31/19 17:03 Dose: 0 mls/hr Documented by: Admin: 03/31/19 14:53 Dose: 200 mls/hr Documented by: Infusion: 03/31/19 10:25 Dose: 200 mls/hr Documented by: Admin: 03/31/19 09:25 Dose: 200 mls/hr Documented by: Infusion: 03/31/19 04:00 Dose: 0 mls/hr Documented by: Admin: 03/31/19 02:54 Dose: 200 mls/hr Documented by: Infusion: 03/30/19 21:54 Dose: 0 mls/hr Documented by: Admin: 03/30/19 20:54 Dose: 200 mls/hr Documented by: Infusion: 03/30/19 20:05 Dose: 0 mls/hr Documented by: Admin: 03/30/19 15:58 Dose: 200 mls/hr Documented by: Infusion: 03/30/19 10:15 Dose: 0 mls/hr Documented by: Admin: 03/30/19 09:18 Dose: 200 mls/hr Documented by: Infusion: 03/30/19 04:32 Dose: 200 mls/hr Documented by: Admin: 03/30/19 03:21 Dose: 200 mls/hr Documented by: Infusion: 03/29/19 22:09 Dose: 200 mls/hr Documented by: Admin: 03/29/19 21:09 Dose: 200 mls/hr Documented by: RAFA Sodium Chloride (Normal Saline 0.9%) 250 mls @ 21 mls/hr IV Q24H PRN PRN Reason: Flush Last Admin: 04/01/19 02:03 Dose: 21 mls/hr Documented by: JUVENAL Insulin Aspart (Novolog Flexpen) 0 unit SUBCUT ACHS NACHO; Protocol Last Admin: 03/31/19 22:05 Dose: 5 unit Documented by: LAW Cosigned by: SANCHEZ Admin: 03/31/19 17:05 Dose: 1 unit Documented by: LAW Cosigned by: SANCHEZ Admin: 03/31/19 12:25 Dose: 3 unit Documented by: BRANDON Cosigned by: ANÍBAL Admin: 03/31/19 08:23 Dose: 1 unit Documented by: SERVANDO Cosigned by: BRANDON Admin: 03/30/19 20:52 Dose: 2 unit Documented by: RAFA Cosigned by: SANCHEZ Admin: 03/30/19 16:55 Dose: 3 unit Documented by: RAFA Cosigned by: LAW Admin: 03/30/19 12:04 Dose: 3 unit Documented by: SERVANDO Cosigned by: RACHEL Admin: 03/30/19 09:19 Dose: 2 unit Documented by: SERVANDO Cosigned by: RACHEL Admin: 03/29/19 21:02 Dose: 4 unit Documented by: RAFA Hsuigned by: SANCHEZ Insulin Glargine (Lantus Solostar (Pen)) 50 unit SUBCUT BID [facility] Last Admin: 03/31/19 22:04 Dose: 50 unit Documented by: LAW Cosigned by: SANCHEZ Magnesium Hydroxide (Milk Of Magnesia) 30 ml PO DAILY PRN PRN Reason: Constipation Melatonin (Melatonin) 9 mg PO BEDTIME PRN PRN Reason: Insomnia Naloxone HCl (Narcan) 0.2 mg IV Q2MIN PRN PRN Reason: Opiate Reversal Nicotine (Nicoderm) 14 mg TOP DAILY [facility] Last Admin: 03/31/19 08:22 Dose: 14 mg Documented by: Admin: 03/30/19 09:20 Dose: 14 mg Documented by: SERVANDO Nystatin (Nystatin Ointment) 1 applic TOP BID PRN PRN Reason: Rash Ondansetron HCl (Zofran) 4 mg IV Q6HR PRN PRN Reason: Nausea And Vomiting Promethazine HCl (Phenadoz) 12.5 mg MS Q6HR PRN PRN Reason: Nausea And Vomiting Sodium Chloride (Normal Saline 0.9% Flush) 10 ml IV PRN PRN PRN Reason: Flush Last Admin: 04/01/19 02:03 Dose: 10 ml Documented by: Admin: 03/31/19 02:16 Dose: 10 ml Documented by: AHARSTA Sodium Chloride (Normal Saline 0.9% Flush) 10 ml IV BID [facility] Last Admin: 03/31/19 20:21 Dose: 10 ml Documented by: Admin: 03/31/19 08:22 Dose: 10 ml Documented by: SERVANDO Vancomycin HCl (Vancomycin Trough) 1 request MIS 1430 [facility] Stop: 04/01/19 14:31 Discontinued Medications Sodium Chloride (Normal Saline 0.9%) 1,000 mls @ 1,000 mls/hr IV BOLUS ONE Stop: 03/29/19 12:18 Last Infusion: 03/29/19 14:28 Dose: 0 mls/hr Documented by: Admin: 03/29/19 11:43 Dose: 1,000 mls/hr Documented by: CASEY Vancomycin HCl/Dextrose (Vancomycin) 1,500 mg in 300 mls @ 200 mls/hr IV NOW ONE Stop: 03/29/19 14:57 Last Infusion: 03/29/19 16:26 Dose: 0 mls/hr Documented by: Admin: 03/29/19 14:48 Dose: 200 mls/hr Documented by: SPENCER Piperacillin/Tazobactam/Dextrose (Zosyn) 3.375 gm in 50 mls @ 100 mls/hr IV NOW ONE Stop: 03/29/19 14:00 Last Infusion: 03/29/19 14:46 Dose: 0 mls/hr Documented by: Admin: 03/29/19 14:15 Dose: 100 mls/hr Documented by: SPENCER Sodium Chloride (Normal Saline 0.9%) 1,000 mls @ 100 mls/hr IV CONT [facility] Last Infusion: 03/29/19 20:56 Dose: 0 mls/hr Documented by: Admin: 03/29/19 17:36 Dose: 100 mls/hr Documented by: RAFA Sodium Chloride (Normal Saline 0.9%) 1,000 mls @ 250 mls/hr IV BOLUS ONE Stop: 03/30/19 00:33 Last Infusion: 03/30/19 02:00 Dose: 250 mls/hr Documented by: Admin: 03/29/19 20:56 Dose: 250 mls/hr Documented by: RAFA Sodium Chloride (Normal Saline 0.9%) 1,000 mls @ 100 mls/hr IV CONT [facility] Last Infusion: 03/30/19 15:00 Dose: 0 mls/hr Documented by: Admin: 03/30/19 02:30 Dose: 100 mls/hr Documented by: NAMITA Insulin Glargine (Lantus Solostar (Pen)) 45 unit SUBCUT BID [facility] Last Admin: 03/31/19 08:26 Dose: 45 unit Documented by: SERVANDO Cosigned by: BRANDON Admin: 03/30/19 20:52 Dose: 45 unit Documented by: RAFA Cosigned by: SANCHEZ Admin: 03/30/19 09:19 Dose: 45 unit Documented by: SERVANDO Cosigned by: RACHEL Admin: 03/29/19 20:29 Dose: 45 unit Documented by: RAFA Cosigned by: SANCHEZ Insulin Human Regular (Humulin R) 10 unit IV NOW ONE Stop: 03/29/19 14:53 Last Admin: 03/29/19 15:08 Dose: Not Given Documented by: SPENCER Insulin Human Regular (Humulin R) 10 unit SUBCUT NOW ONE Stop: 03/29/19 15:05 Last Admin: 03/29/19 15:05 Dose: 10 unit Documented by: SPENCER Cosigned by: KBROTEM Nystatin (Nystop) 1 applic TOP BID PRN PRN Reason: Rash Potassium Chloride (Klor-Con M20) 40 meq PO NOW ONE Stop: 04/01/19 04:45 Last Admin: 04/01/19 05:52 Dose: 40 meq Documented by: JUVENAL Vancomycin HCl (Vancomycin Trough) 1 request [facility] [address] [facility] Stop: 03/30/19 14:31 Last Admin: 03/30/19 15:57 Dose: 1 request Documented by: RAFA Vital Signs Vital signs: Vital Signs - 8 hr 03/29/19 12:14 03/29/19 15:10 Pulse Rate 90 83 Respiratory Rate 21 21 Blood Pressure [Left Arm] 138/80 128/77 Pulse Oximetry 96 96 MDM - Wound/Laceration <ROCÍO No - Last Filed: 03/29/19 20:14> Medical Records Attestation: I reviewed the patient's medical records. Lab Data Attestation: I reviewed the patient's lab results. Result diagrams: 04/01/19 04:00 04/01/19 04:00 Labs: Lab Results 03/29/19 03/29/19 03/29/19 Range/Units 11:35 11:35 11:35 WBC 12.5 H (4.5-11.0) X10^3/uL RBC 5.09 (4.5-5.9) X10^6/uL Hgb 14.6 (13.5-17.5) g/dL Hct 43.5 (41-53) % MCV 85.3 (80-100) fL MCH 28.7 (26-34) PG MCHC 33.6 (30-36) % RDW 16.0 H (11.6-14.8) % Plt Count 241 (150-400) X10^3/uL Neut % (Auto) 85.5 H (50-75) % Lymph % (Auto) 7.6 L (25-40) % [place] % (Auto) 5.5 (3-14) % Eos % (Auto) 1.0 L (2-4) % Baso % (Auto) 0.4 (0-2) % Neut # (Auto) 95087 H (6033-4464) /uL Lymph # (Auto) 900 L (0408-7023) /uL [place] # (Auto) 700 (0-900) /uL Eos # (Auto) 100 (0-450) /uL Baso # (Auto) 0 (0-100) /uL ESR (0-15) MM/HR Sodium 134 L (137-145) mmol/L Potassium 4.0 (3.4-5.1) mmol/L Chloride 96 L (98-107) mmol/L Carbon Dioxide 28 (22-32) mmol/L BUN 18 (9-20) mg/dL Creatinine 0.70 (0.66-1.25) mg/dL Estimated GFR > 60.0 (>60) mL/min BUN/Creatinine Ratio 25.7 H (6-22) Glucose 422 H (70-100) mg/dL Lactate (0.7-2.1) mmol/L Calcium 9.0 (8.4-10.2) mg/dL Total Bilirubin 0.8 (0.2-1.3) mg/dL AST 15 L (17-59) IU/L ALT 12 (<50) IU/L Alkaline Phosphatase 126 (38-126) U/L C-Reactive Protein (<1.0) mg/dL Total Protein 7.3 (6.3-8.2) g/dL Albumin 3.9 (3.5-5.0) g/dL Globulin 3.4 (1.7-4.1) g/dL Albumin/Globulin Ratio 1.1 (1.0-2.8) Procalcitonin 0.16 (<0.5) ng/mL 03/29/19 03/29/19 03/29/19 Range/Units 11:35 11:35 11:35 WBC (4.5-11.0) X10^3/uL RBC (4.5-5.9) X10^6/uL Hgb (13.5-17.5) g/dL Hct (41-53) % MCV (80-100) fL MCH (26-34) PG MCHC (30-36) % RDW (11.6-14.8) % Plt Count (150-400) X10^3/uL Neut % (Auto) (50-75) % Lymph % (Auto) (25-40) % [place] % (Auto) (3-14) % Eos % (Auto) (2-4) % Baso % (Auto) (0-2) % Neut # (Auto) (8186-1722) /uL Lymph # (Auto) (6300-4803) /uL [place] # (Auto) (0-900) /uL Eos # (Auto) (0-450) /uL Baso # (Auto) (0-100) /uL ESR 57 H D (0-15) MM/HR Sodium (137-145) mmol/L Potassium (3.4-5.1) mmol/L Chloride (98-107) mmol/L Carbon Dioxide (22-32) mmol/L BUN (9-20) mg/dL Creatinine (0.66-1.25) mg/dL Estimated GFR (>60) mL/min BUN/Creatinine Ratio (6-22) Glucose (70-100) mg/dL Lactate 1.1 (0.7-2.1) mmol/L Calcium (8.4-10.2) mg/dL Total Bilirubin (0.2-1.3) mg/dL AST (17-59) IU/L ALT (<50) IU/L Alkaline Phosphatase (38-126) U/L C-Reactive Protein 32.3 H (<1.0) mg/dL Total Protein (6.3-8.2) g/dL Albumin (3.5-5.0) g/dL Globulin (1.7-4.1) g/dL Albumin/Globulin Ratio (1.0-2.8) Procalcitonin (<0.5) ng/mL Imaging Data Foot Xray: Radiologist's Impression: [address] [address] XRay Report Signed Patient: David Givens DMR#: [id number] : [id number]:[id number] Age/Sex: 58 / MDate of Service: 03/29/19 Loc: ED Accession Number: [id number] Procedure: XR foot LT min 3V Ordering Provider: Grace Adrian PROCEDURE: XR FOOT LT MIN 3V INDICATIONS: r/o osteomyelitis TECHNIQUE: 3 views of the foot were acquired. COMPARISON: [facility], CR, XR FOOT LT MIN 3V, 08/20/2018, 14:40. [facility], CR, XR FOOT LT MIN 3V, 06/10/2018, 10:34. FINDINGS: Bones: Morphology and appearance of the left foot indicates presence of Charcot joint with extensive distortion of the tarsal-metatarsal interfaces, chronic in appearance. However, there appears to be deep soft tissue ulceration at the medial aspect of the midfoot, superficial to the medial border of the first tarsal bone. There has been ostiolysis of this structure when compared to similar plain film imaging 08/20/18 and 06/10/18, with overlying dressing.. Soft tissues: No tibiotalar joint effusion. Achilles tendon appears normal. IMPRESSION: Charcot joint, active osteomyelitis appears present at the medial border of the first tarsal bone, where a deep soft tissue ulceration is present with overlying soft tissue dressing. MR scanning may be warranted for more accurate assessment. Dictated by: Bg Miguel M.D. on 03/29/2019 at 11:37 Approved by: Bg Miguel M.D. on 03/29/2019 at 11:39 CT LE: Radiologist's Impression: [address] [place] [id number] Scan Report Signed Patient: David Givens DMR#: [id number] : 1Acct:[id number] Age/Sex: 58 / MDate of Service: 03/29/19 Loc: ED Accession Number: [id number] Procedure: CT LE LT w con Ordering Provider: Grace Adrian PROCEDURE: CT LE LT W CON INDICATIONS: Foot abscess left TECHNIQUE: After the administration of intravenous contrast, 3 mm axial sections acquired of the left ankle and foot, with coronal and sagittal reformats. COMPARISON: [facility], CR, XR FOOT LT MIN 3V, 08/20/2018, 14:40. [facility], MR, MR FOOT LT WO CON, 08/30/2018, 20:25. FINDINGS: Image quality: Excellent. Bones: Severe arthritic changes are seen in the midfoot with collapsed plantar arch , lateral subluxation of the third, fourth and fifth metatarsals at the Lisfranc joint and fragmentation around the tarsometatarsal joints, consistent with neuropathic arthropathy. Sclerotic changes at the first tarsometatarsal joint is present, suggesting chronic osteomyelitis. Mild widening of the medial ankle mortise is seen, probably sequelae of ligamentous abnormalities. Severe first metatarsophalangeal joint degeneration and mild to moderate degeneration of the interphalangeal joints. There is osteopenia. Soft tissues: There is a deep ulcer in the medial plantar aspect of the foot adjacent to the first tarsometatarsal joint. There is no drainable fluid collections. Diffuse soft tissue swelling and increased enhancement in the left foot, consistent with cellulitis. IMPRESSION: 1. A deep ulcer in the medial plantar aspect of the foot adjacent to the first tarsometatarsal joint. 2. Sclerotic changes at the first tarsometatarsal joint are suspicious for chronic osteomyelitis. 3. There is no drainable fluid collections. 4. Soft tissue edema and abnormal enhancement consistent with cellulitis. 5. Severe neuropathic arthropathy. 6. Osteopenia. Dictated by: Aaron Whaley M.D. on 03/29/2019 at 12:55 Approved by: Aaron Whaley M.D. on 03/29/2019 at 13:15 MDM Narrative Medical decision making narrative: This is a 58-year-old male with history of uncontrolled diabetes, chronic osteomyelitis, and homelessness. He presents emergency department for worsening cellulitis and osteomyelitis and per orthopedics to rule out abscess formation. Patient's CRP, ESR, neutrophil count, white blood cell count, have been trending upward since yesterday indicating failed out patient treatment. Patient remained hemodynamically stable and in no acute distress, Patient was eating and drinking throughout the emergency department stay. He initially presented tachycardic but this resolved after administration of fluid, Patient remained afebrile. CT was ordered to rule out abscess formation per request of Ortho. Patient was admitted to Dr. Bautista for chronic osteomyelitis and increasing cellulitis labs, presentation of erythema, swelling, and chronic wound infection. Less likely DVT due to lack calf pain an obvious source of infection. Less likely arterial involvement as pedal pulse a strong and remains intact. Antibiotics were started based on previous cultures. Less likely sepsis due to stable blood pressure, heart rate, lactate WNL, and negative qSOFA score. Patient was admitted to inpatient tele, Dr. Amador dressed wound. <Melanie Paiz, DO - Last Filed: 04/01/19 07:32> Lab Data Labs: Lab Results 03/29/19 03/29/19 03/29/19 Range/Units 11:35 11:35 11:35 WBC 12.5 H (4.5-11.0) X10^3/uL RBC 5.09 (4.5-5.9) X10^6/uL Hgb 14.6 (13.5-17.5) g/dL Hct 43.5 (41-53) % MCV 85.3 (80-100) fL MCH 28.7 (26-34) PG MCHC 33.6 (30-36) % RDW 16.0 H (11.6-14.8) % Plt Count 241 (150-400) X10^3/uL Neut % (Auto) 85.5 H (50-75) % Lymph % (Auto) 7.6 L (25-40) % [place] % (Auto) 5.5 (3-14) % Eos % (Auto) 1.0 L (2-4) % Baso % (Auto) 0.4 (0-2) % Neut # (Auto) 85872 H (2555-8748) /uL Lymph # (Auto) 900 L (3055-3478) /uL [place] # (Auto) 700 (0-900) /uL Eos # (Auto) 100 (0-450) /uL Baso # (Auto) 0 (0-100) /uL ESR (0-15) MM/HR Sodium 134 L (137-145) mmol/L Potassium 4.0 (3.4-5.1) mmol/L Chloride 96 L (98-107) mmol/L Carbon Dioxide 28 (22-32) mmol/L BUN 18 (9-20) mg/dL Creatinine 0.70 (0.66-1.25) mg/dL Estimated GFR > 60.0 (>60) mL/min BUN/Creatinine Ratio 25.7 H (6-22) Glucose 422 H (70-100) mg/dL Lactate (0.7-2.1) mmol/L Calcium 9.0 (8.4-10.2) mg/dL Total Bilirubin 0.8 (0.2-1.3) mg/dL AST 15 L (17-59) IU/L ALT 12 (<50) IU/L Alkaline Phosphatase 126 (38-126) U/L C-Reactive Protein (<1.0) mg/dL Total Protein 7.3 (6.3-8.2) g/dL Albumin 3.9 (3.5-5.0) g/dL Globulin 3.4 (1.7-4.1) g/dL Albumin/Globulin Ratio 1.1 (1.0-2.8) Procalcitonin 0.16 (<0.5) ng/mL 03/29/19 03/29/19 03/29/19 Range/Units 11:35 11:35 11:35 WBC (4.5-11.0) X10^3/uL RBC (4.5-5.9) X10^6/uL Hgb (13.5-17.5) g/dL Hct (41-53) % MCV (80-100) fL MCH (26-34) PG MCHC (30-36) % RDW (11.6-14.8) % Plt Count (150-400) X10^3/uL Neut % (Auto) (50-75) % Lymph % (Auto) (25-40) % [place] % (Auto) (3-14) % Eos % (Auto) (2-4) % Baso % (Auto) (0-2) % Neut # (Auto) (9270-4447) /uL Lymph # (Auto) (1136-8845) /uL [place] # (Auto) (0-900) /uL Eos # (Auto) (0-450) /uL Baso # (Auto) (0-100) /uL ESR 57 H D (0-15) MM/HR Sodium (137-145) mmol/L Potassium (3.4-5.1) mmol/L Chloride (98-107) mmol/L Carbon Dioxide (22-32) mmol/L BUN (9-20) mg/dL Creatinine (0.66-1.25) mg/dL Estimated GFR (>60) mL/min BUN/Creatinine Ratio (6-22) Glucose (70-100) mg/dL Lactate 1.1 (0.7-2.1) mmol/L Calcium (8.4-10.2) mg/dL Total Bilirubin (0.2-1.3) mg/dL AST (17-59) IU/L ALT (<50) IU/L Alkaline Phosphatase (38-126) U/L C-Reactive Protein 32.3 H (<1.0) mg/dL Total Protein (6.3-8.2) g/dL Albumin (3.5-5.0) g/dL Globulin (1.7-4.1) g/dL Albumin/Globulin Ratio (1.0-2.8) Procalcitonin (<0.5) ng/mL Discharge Plan Departure Patient Disposition: Admitted As Inpatient Clinical Impression: Osteomyelitis Qualifiers: Osteomyelitis type: unspecified type Osteomyelitis location: foot Laterality: left Qualified Code(s): M86.9 - Osteomyelitis, unspecified Cellulitis Qualifiers: Site of cellulitis: extremity Site of cellulitis of extremity: lower extremity Laterality: left Qualified Code(s): L03.116 - Cellulitis of left lower limb Discharge Date/Time: 03/29/19 16:34 Referrals: Madeline Morales DO [Primary Care Provider] - Admit Date/Time: 03/29/19 15:13 Admit Provider: Chantel Bautista
[2019-03-29] MEDS: SODIUM CHLORIDE 0.9% 1,000 ML 1000 ML IV (11:43)
[2019-03-29 11:56] LABS: Lactate (Lactic Acid) 1.1 mmol/L (0.7-2.1)
[2019-03-29 11:57] LABS: Alanine Aminotransferase 12 IU/L (<50); Albumin 3.9 g/dL (3.5-5.0); Albumin Globulin Ratio 1.1 (1.0-2.8); Alkaline Phosphatase 126 U/L (38-126); Aspartate Aminotransferase 15 IU/L (17-59); BUN Creatinine Ratio 25.7 (6-22); Bilirubin Total 0.8 mg/dL (0.2-1.3); Blood Urea Nitrogen 18 mg/dL (9-20); Carbon Dioxide 28 mmol/L (22-32); Chloride 96 mmol/L (98-107); Estimated Glomerular Filt Rate > 60.0 mL/min (>60); Globulin 3.4 g/dL (1.7-4.1); Glucose 422 mg/dL (70-100); HEMOLYSIS < 15 (0-50); Sodium 134 mmol/L (137-145); Total Protein 7.3 g/dL (6.3-8.2)
[2019-03-29 11:59] LABS: Erythrocyte Sedimentation Rate 57 MM/HR (0-15)
[2019-03-29 12:12] LABS: Procalcitonin 0.16 ng/mL (<0.5)
--- NOTE | 2019-03-29 12:19 | DI.CT.S_ITS ---
PROCEDURE: CT LE LT W CON INDICATIONS: Foot abscess left TECHNIQUE: After the administration of intravenous contrast, 3 mm axial sections acquired of the left ankle and foot, with coronal and sagittal reformats. COMPARISON: [facility], CR, XR FOOT LT MIN 3V, 08/20/2018, 14:40. [facility], MR, MR FOOT LT WO CON, 08/30/2018, 20:25. FINDINGS: Image quality: Excellent. Bones: Severe arthritic changes are seen in the midfoot with collapsed plantar arch , lateral subluxation of the third, fourth and fifth metatarsals at the Lisfranc joint and fragmentation around the tarsometatarsal joints, consistent with neuropathic arthropathy. Sclerotic changes at the first tarsometatarsal joint is present, suggesting chronic osteomyelitis. Mild widening of the medial ankle mortise is seen, probably sequelae of ligamentous abnormalities. Severe first metatarsophalangeal joint degeneration and mild to moderate degeneration of the interphalangeal joints. There is osteopenia. Soft tissues: There is a deep ulcer in the medial plantar aspect of the foot adjacent to the first tarsometatarsal joint. There is no drainable fluid collections. Diffuse soft tissue swelling and increased enhancement in the left foot, consistent with cellulitis. IMPRESSION: 1. A deep ulcer in the medial plantar aspect of the foot adjacent to the first tarsometatarsal joint. 2. Sclerotic changes at the first tarsometatarsal joint are suspicious for chronic osteomyelitis. 3. There is no drainable fluid collections. 4. Soft tissue edema and abnormal enhancement consistent with cellulitis. 5. Severe neuropathic arthropathy. 6. Osteopenia. Dictated by: Aaron Whaley M.D. on 03/29/2019 at 12:55 Approved by: Aaron Whaley M.D. on 03/29/2019 at 13:15
[2019-03-29 12:25] LABS: Add Manual Diff / Slide Review NO; Basophils Absolute Auto 0 /uL (0-100); Basophils Percent Auto 0.4 % (0-2); Eosinophils Absolute Auto 100 /uL (0-450); Hematocrit 43.5 % (41-53); Hemoglobin 14.6 g/dL (13.5-17.5); Lymphocytes Absolute Auto 900 /uL (1100-4500); Lymphocytes Percent Auto 7.6 % (25-40); Mean Corpuscular HGB Conc 33.6 % (30-36); Mean Corpuscular Hemoglobin 28.7 PG (26-34); Mean Corpuscular Volume 85.3 fL (80-100); Monocytes Absolute Auto 700 /uL (0-900); Monocytes Percent Auto 5.5 % (3-14); Neutrophils Absolute Auto 10700 /uL (1500-7000); Neutrophils Percent Auto 85.5 % (50-75); Platelet Count 241 X10^3/uL (150-400); Red Blood Cell Count 5.09 X10^6/uL (4.5-5.9); White Blood Cell Count 12.5 X10^3/uL (4.5-11.0)
[2019-03-29 12:30] LABS: C-Reactive Protein Quant 32.3 mg/dL (<1.0)
[2019-03-29] MEDS: PIPERACILLIN-TAZO 3.375 GM/50 ML FROZ.PIGGY IV ×2 (14:15→20:19)
[2019-03-29] MEDS: VANCOMYCIN 1,500 MG/300 ML FROZ.PIGGY 200 MG IV (14:48)
[2019-03-29] MEDS: INSULIN REGULAR 100 UNIT/ML 3 ML VIAL 10 UNIT SUBCUT (15:05)
--- NOTE | 2019-03-29 16:17 | P.CONS_ITS ---
History of Present Illness Consult details Date Patient Seen: 03/29/19 Time Patient Seen: 16:17 Chief complaint: sent from wound care for antibiotics Reason for consult: Left foot osteomyelitis and cellulitis Requesting provider: Grace Adrian Narrative: Break on her is a 58-year-old male well known to me. He has u ncontrolled diabetes and a history of Charcot neuropathy affecting the left foot with a chronic medial left foot midfoot ulcer and osteomyelitis. He has been debrided multiple times and has most recently be been getting extensive treatment with negative pressure wound therapy and multiple dermal substitute grafts. Over the last few months with this treatment the wound has decreased in size by approximately 50%. The patient had been compliant with his nonweightbearing and doing very well as recent as last week in my clinic on 03/18/2019. On 03/28 2019 the patient presented to the wound Care Clinic and Dr. juan jose boudreaux noted increased redness and concerns at the distal aspect of the wound. Labs were drawn showing elevated white count and elevated CRP to 20. The patient was asked to come into the hospital for IV antibiotics did not present that night. He was subsequently scheduled with me for an appointment today. The patient was reached by phone this morning and instructed to proceed to the ER for evaluation treatment likely resumption of antibiotics. The patient was agreeable to this. In the ER he was found to have even worse labs than yesterday with white cell count of 12.5 ESR of 58 and CRP of 32 glucose was also 422. A bone biopsy from the wound Care Clinic is growing Staph but is not SP CAD yet. Patient had been on levofloxacin and Bactrim per Infectious Disease at [facility] Dr. Wiggins. Previous to that he had finished a course of IV antibiotics at the infusion center at [facility]. He has been very compliant in his follow-up and has made all of his appointments with me in the interim. He also has claustrophobia and requires a door of his room to be open but has otherwise been very pleasant. He has a wheelchair for offloading. He is homeless and spends most of the time in his truck. His PCP is Hayde Morales DO. He had a CT scan with and without contrast in the ER the did not show any new abscess but did show extensive cellulitis over the distal foot and the previously known Charcot deformities and bone destruction consistent with his hi story of Charcot deformities and multiple debridements. Meds Home Medications and Allergies Home Medications Medication Instructions Recorded Confirmed Type melatonin 10 mg PO BEDTIME PRN #0 08/20/18 03/29/19 History metformin 1,000 mg tablet 1,000 mg PO BID #180 tab 11/24/18 03/29/19 Rx fluticasone propionate 50 1 spray NASAL BID #15.8 ml 03/04/19 03/29/19 Rx mcg/actuation nasal spray,suspension pen needle, diabetic 31 gauge x #60 each 03/04/19 03/29/19 Rx 1/4 Lantus Solostar U-100 Insulin 40 - 45 unit SUBCUT BID 03/29/19 03/29/19 History albuterol sulfate 1 - 2 puff INHALATION Q4-6H PRN 03/29/19 03/29/19 History amoxicillin-pot clavulanate 1 tab PO BID 03/29/19 03/29/19 History levofloxacin 750 mg PO DAILY 03/29/19 03/29/19 History Allergies Allergy/AdvReac Type Severity Reaction Status Date / Time No Known Drug Allergies Allergy Verified 03/29/19 11:03 Review of Systems Review of Systems ROS Unobtainable: All systems reviewed & are unremarkable except as noted in HPI and below Exam Vital Signs (past 8 hours): - 03/29/19 11:03 03/29/19 12:14 03/29/19 15:10 Temperature 95.9 F L Pulse Rate 117 H 90 83 Respiratory Rate 16 21 21 Blood Pressure 124/100 H Blood Pressure [Left Arm] 138/80 128/77 Pulse Oximetry 98 96 96 Oxygen Delivery Method Room Air Narrative Exam Narrative: General: Alert male no acute distress lying on the cot in the ED. Pleasant and appreciative for his care. Unchanged disheveled appearance HEENT exam: Normocephalic atraumatic Respiratory exam: Unlabored on room air Cardiac: Regular rate and rhythm Extremity exam: Left lower extremity with medial ulceration stable margins. Distal aspect of the wound is deep does probe to bone which is a change from previous. There is a dias fibrinous exudate. Mild malodor. No gross purulence. No fluctuance. There is a diffuse cellulitis and swelling at the distal margin of the wound over the dorsum of the 1st metatarsal. No ascending cellulitis. Dense neuropathy unchanged from previous exam. Brisk capillary refill Objective Imaging CT scan left foot: My impression: Stable Charcot foot deformities left with medial ulceration. Circumferential cellulitis. No obvious deep abscess or collection. Radiologist's impression: Charcot foot deformities osteomyelitis. No obvious abscess Labs Result Diagrams: 03/29/19 11:35 03/29/19 11:35 Labs: Laboratory Results - last 24 hr 03/29/19 03/29/19 03/29/19 11:35 11:35 11:35 WBC 12.5 H RBC 5.09 Hgb 14.6 Hct 43.5 MCV 85.3 MCH 28.7 MCHC 33.6 RDW 16.0 H Plt Count 241 Neut % (Auto) 85.5 H Lymph % (Auto) 7.6 L [place] % (Auto) 5.5 Eos % (Auto) 1.0 L Baso % (Auto) 0.4 Neut # (Auto) 93670 H Lymph # (Auto) 900 L [place] # (Auto) 700 Eos # (Auto) 100 Baso # (Auto) 0 ESR Sodium 134 L Potassium 4.0 Chloride 96 L Carbon Dioxide 28 BUN 18 Creatinine 0.70 Estimated GFR > 60.0 BUN/Creatinine Ratio 25.7 H Glucose 422 H Lactate Calcium 9.0 Total Bilirubin 0.8 AST 15 L ALT 12 Alkaline Phosphatase 126 C-Reactive Protein Total Protein 7.3 Albumin 3.9 Globulin 3.4 Albumin/Globulin Ratio 1.1 Procalcitonin 0.16 03/29/19 03/29/19 03/29/19 11:35 11:35 11:35 WBC RBC Hgb Hct MCV MCH MCHC RDW Plt Count Neut % (Auto) Lymph % (Auto) [place] % (Auto) Eos % (Auto) Baso % (Auto) Neut # (Auto) Lymph # (Auto) [place] # (Auto) Eos # (Auto) Baso # (Auto) ESR 57 H D Sodium Potassium Chloride Carbon Dioxide BUN Creatinine Estimated GFR BUN/Creatinine Ratio Glucose Lactate 1.1 Calcium Total Bilirubin AST ALT Alkaline Phosphatase C-Reactive Protein 32.3 H Total Protein Albumin Globulin Albumin/Globulin Ratio Procalcitonin Assessment & Plan Assessment and plan (1) Osteomyelitis: Problem details: 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 He has acutely worsening cellulitis of the distal aspect of the wound. The wound itself is decreased in size by half over the last few months with grafting and wound care. No evidence of abscess. No indication for repeat debridement at this time. Will attempt to control on IV antibiotics. Based on appearance in ER from yesterday there is already some decrease in the redness. Will await speciation from biopsy cultures likely PICC line and approximately 6 weeks IV antibiotics. Hopefully through Infusion Center again so patient may do this outpatient basis. Will take continue daily wet-to-dry dressing which can be done by nursing while inpatient and then transitioned to the negative pressure wound VAC is a by the wound care center on discharge--Dr. Lee and the [facility] are aware of the patient and know him well. Recommend broad-spectrum antibiotics agree with vancomycin and Zosyn. Monitor kidney function. Qualifiers: Laterality: left Osteomyelitis location: foot Osteomyelitis type: unspecified type Qualified Code(s): M86.9 - Osteomyelitis, unspecified Current visit: Yes Status: Acute (2) Cellulitis: Problem details: Redness erythema and swelling at the distal aspect of the wound no drainable abscess. Continue above recommendations for broad-spectrum IV antibiotics followed by narrowing the spectrum as appropriate Qualifiers: Laterality: left Site of cellulitis: extremity Site of cellulitis of extremity: lower extremity Qualified Code(s): L03.116 - Cellulitis of left lower limb Current visit: Yes Status: Acute (3) Obstructive lung disease: Problem details: By PFT 05/28/18, moderate Current visit: No Status: Chronic (4) Chronic osteomyelitis: Problem details: See above Current visit: No Status: Acute (5) Homeless: Problem details: Lives in his truck. Current visit: No Status: Chronic (6) Diabetic foot ulcer: Problem details: See above. Chronic left foot with osteomyelitis related to diabetes and Charcot neuropathy. Wet to dry dressings. Resume VAC sponge therapy with wound care center on discharge. 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
[2019-03-29] MEDS: SODIUM CHLORIDE 0.9% 1,000 ML 100 ML IV (17:36)
[2019-03-29 19:36] LABS: Appearance Urine UA CLEAR; Bilirubin Urine UA NEGATIVE (NEGATIVE); Color Urine UA YELLOW; Glucose Urine UA 3+ g/dL (Negative); Ketones Urine UA NEGATIVE (NEGATIVE); Leukocyte Esterase Urine UA NEGATIVE (NEGATIVE); Nitrite Urine UA NEGATIVE (Negative); Occult Blood Urine UA TRACE-LYSED (Negative); Protein Urine UA NEGATIVE (Negative); Urobilinogen Urine UA 0.2 E.U./dL (0.2); pH Urine UA 5.5 (4.5-8.0)
[2019-03-29] MEDS: ACETAMINOPHEN 325 MG TABLET 650 MG PO (20:25)
[2019-03-29] MEDS: FLUTICASONE 120 SPRAY/16 GM SPRAY.SUSP NASAL (20:25)
[2019-03-29] MEDS: INSULIN GLARGINE 100 UNIT/ML 3ML PEN 45 UNIT SUBCUT (20:29)
[2019-03-29] MEDS: SODIUM CHLORIDE 0.9% 1,000 ML 250 ML IV (20:56)
[2019-03-29] MEDS: INSULIN ASPART 100 UNIT/ML INSULN PEN SUBCUT (21:02)
[2019-03-29] MEDS: VANCOMYCIN 1,000 MG/200 ML PIGGYBACK 200 MG IV (21:09)
--- NOTE | 2019-03-29 22:14 | PM.HP.1 ---
History of Present Illness History of Present Illness Date Patient Seen: 03/29/19 Time Patient Seen: 21:46 Chief complaint: sent from wound care for antibiotics Narrative: Mr. David Givens is a 50-year-old male patient with history significant for chronic diabetic ulcer left foot, chronic osteomyelitis, diabetes type 2 with polyneuropathy and COPD with restrictive lung disease who was sent to the ER by Dr. Mendosa for concerns of osteomyelitis. Patient has had a chronic wound on the plantar surface of his left foot for 5 years. His undergone prior skin grafting. He has also undergone wound VAC therapy as well as prior IV antibiotic therapy for osteomyelitis. [facility] he was seen yesterday with findings of increased cellulitis and a culture and biopsy were taken. The culture taken 03/28/2019 shows light growth of Staph aureus, sensitivities to be identified. Patient has previously been on levofloxacin and Bactrim per Dr. Chapa infectious diseases [facility]. The patient's cares complicated by the fact that he is homeless living in his truck but he has been compliant with making his appointments. Uses a wheelchair for mobility and minimize weight-bearing on his left foot. The patient denies pain and has dense neuropathy of the feet extending to just distal to the knee. The patient reports no systemic symptoms with no fevers or chills, no headaches or dizziness. He does indicate that he has had recent nasal congestion and sore throat. He denies chest pain or palpitations has no shortness of breath cough or wheezing. He does use albuterol inhaler. He denies abdominal pain, heartburn, nausea or vomiting. Reports no changes in urination or bowel habits. Upon arrival to the emergency department the patient was hypothermic with a temperature 95.9?. Tachycardic 117, blood pressure 124/100 respirations 16 saturating 90% on room air. An x-ray of the left foot was obtained finding Charcot joint, acute osteomyelitis. A CT of the foot is obtained and found no acute abscess, deep ulcer of the medial plantar surface of the 1st metatarsal, sclerotic joint of the 1st metatarsal concerning for osteomyelitis, severe neuropathic arthropathy and osteopenia. Labs are assessed finding elevated white count at 12.5 (yesterday was 11.9), hemoglobin of 14.6, hematocrit of 43.5, platelets 241. On chemistry sodium is 134 with a potassium of 4.0 when chloride 96 and CO of 20. BUN is 18 and creatinine is 0.7. Blood sugars noted to be 422. Procalcitonin is 0.16, lactic acid is 1.1. CRP is elevated over labs yesterday a CRP of 32.3, ESR is also elevated over yesterday and today is 57. Urinalysis is negative except for 3+ glucose. In the ER the patient received 10 units of insulin IV and [address] Mendosa is consulting and medicine is admitting for management of nonketotic hyperglycemia. Patient History Medical History Chronic diabetic ulcer of foot determined by examination (Chronic) Chronic osteomyelitis (Acute) CTS (carpal tunnel syndrome) (Resolved) Diabetes mellitus (Chronic) Homeless (Chronic 07/22/16) Obstructive lung disease (Chronic) Presence of surgical screw in left hand (Chronic) Restrictive lung disease (Chronic) Surgical History History of carpal tunnel release (Resolved) History of hand surgery (Resolved) History of umbilical hernia repair (Resolved) Status post incision and drainage (Acute 06/11/18) Status post left foot surgery (Resolved) Status post left foot surgery (Resolved) Family & Social History Family History (Updated 03/29/19 @ 23:56 by ROCÍO Laureano) Father Diabetes mellitus Mother No problems noted. Son Medical history unknown Social History: household members none Prior Living Arrangements Homeless Safety & Behavioral: Feels Safe in Current Yes Environment Been Physically Hurt or No Threatened By a Person Suicidal Ideation Description None Suicide Plan Description No Plan Tobacco & Substance use: Tobacco type cigarettes Smoking Status Current every day smoker alcohol intake former alcohol intake frequency holiday/special occasion Substance Use Type does not use Comment: The patient is single and is homeless. He is currently living in his truck. Provides history of his father having diabetes with amputations and succumbing to multiple complications. He indicates that his mother is alive and knows of no medical problems. He is an only child and has 2 sons from whom he is estranged. 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 Smoking: The patient endorses smoking 3-4 cigarettes daily stating is attempting to quit.. Alcohol: Patient reports he does not drink alcohol. Substance use: Patient denies recreational pharmaceuticals, herbal or cannabis products. Advanced directives: The patient does not have a formal advanced directive but indicates desire to be FULL CODE. The patient does not designated surrogate decision maker. Meds Home Medications and Allergies Home Medications Medication Instructions Recorded Confirmed Type melatonin 10 mg PO BEDTIME PRN #0 08/20/18 03/29/19 History metformin 1,000 mg tablet 1,000 mg PO BID #180 tab 11/24/18 03/29/19 Rx fluticasone propionate 50 1 spray NASAL BID #15.8 ml 03/04/19 03/29/19 Rx mcg/actuation nasal spray,suspension pen needle, diabetic 31 gauge x #60 each 03/04/19 03/29/19 Rx 1/4 Lantus Solostar U-100 Insulin 40 - 45 unit SUBCUT BID 03/29/19 03/29/19 History albuterol sulfate 1 - 2 puff INHALATION Q4-6H PRN 03/29/19 03/29/19 History amoxicillin-pot clavulanate 1 tab PO BID 03/29/19 03/29/19 History levofloxacin 750 mg PO DAILY 03/29/19 03/29/19 History Allergies Allergy/AdvReac Type Severity Reaction Status Date / Time No Known Drug Allergies Allergy Verified 03/29/19 11:03 Review of Systems Review of Systems Narrative: All systems are reviewed and are unremarkable and noted in the HPI above. Exam Vital Signs (past 8 hours): - 03/29/19 15:10 03/29/19 17:41 03/29/19 20:25 Temperature 98.7 F 104.8 F H Pulse Rate 83 113 H Respiratory Rate 21 20 Blood Pressure 150/93 H Blood Pressure [Left Arm] 128/77 Pulse Oximetry 96 91 03/29/19 20:33 03/29/19 21:22 Temperature 104.8 F H 97.4 F L Pulse Rate 123 H Respiratory Rate 20 Blood Pressure 136/77 Blood Pressure [Left Arm] Pulse Oximetry 93 Oxygen Delivery Method Room Air Narrative Exam Narrative: GENERAL APPEARANCE: well developed, unkempt, disheveled, obese, in no acute distress. HEENT: Normocephalic, PERRLA, conjunctiva clear, EOMs intact without nystagmus, no sinus tenderness to percussion, no rhinorrhea, mucous membranes are moist and pink without lesions or exudate. NECK/THYROID: neck supple, no JVD, no thyromegaly, trachea midline. LYMPH NODES: no cervical or supraclavicular lymphadenopathy. SKIN: [place], warm and dry, skin left foot dry with scaling. HEART: regular rate and rhythm, S1-S2, no murmur appreciated, no rubs or gallops, brisk capillary refill, no edema LUNGS: clear but diminished on auscultation bilaterally, no coarseness crackles or wheezing, no cough present CHEST: Symmetrical movement, no accessory muscle use, good tidal volume. ABDOMEN: Soft, no distention, no abdominal tenderness, no guarding or peritoneal signs, no organomegaly, no flank tenderness, active bowel tones. BACK: Normal curvature, nontender to palpation, no CVA tenderness on percussion EXTREMITIES: 4 cm x 3.5 cm deep ulcer with packing plantar surface left 1st metatarsal, erythema of the medial implanted service with warmth, moves all extremities, strength is 5/5 and symmetrical, no deformities or joint effusions. NEUROLOGIC: AAO x4, cranial nerves II-XII grossly intact, dense neuropathy left foot with anesthesia and decreased sensation up to the level of the tibial tubercle. PSYCH: Cooperative, appropriate with stable behavior Objective Labs Result Diagrams: 03/29/19 11:35 03/29/19 11:35 Labs: Laboratory Results - last 24 hr 03/29/19 03/29/19 03/29/19 11:35 11:35 11:35 WBC 12.5 H RBC 5.09 Hgb 14.6 Hct 43.5 MCV 85.3 MCH 28.7 MCHC 33.6 RDW 16.0 H Plt Count 241 Neut % (Auto) 85.5 H Lymph % (Auto) 7.6 L [place] % (Auto) 5.5 Eos % (Auto) 1.0 L Baso % (Auto) 0.4 Neut # (Auto) 65102 H Lymph # (Auto) 900 L [place] # (Auto) 700 Eos # (Auto) 100 Baso # (Auto) 0 ESR Sodium 134 L Potassium 4.0 Chloride 96 L Carbon Dioxide 28 BUN 18 Creatinine 0.70 Estimated GFR > 60.0 BUN/Creatinine Ratio 25.7 H Glucose 422 H Lactate Calcium 9.0 Total Bilirubin 0.8 AST 15 L ALT 12 Alkaline Phosphatase 126 C-Reactive Protein Total Protein 7.3 Albumin 3.9 Globulin 3.4 Albumin/Globulin Ratio 1.1 Procalcitonin 0.16 Urine Color Urine Appearance Urine pH Ur Specific [place] Urine Protein Urine Glucose (UA) Urine Ketones Urine Occult Blood Urine Nitrate Urine Bilirubin Urine Urobilinogen Ur Leukocyte Esterase 03/29/19 03/29/19 03/29/19 11:35 11:35 11:35 WBC RBC Hgb Hct MCV MCH MCHC RDW Plt Count Neut % (Auto) Lymph % (Auto) [place] % (Auto) Eos % (Auto) Baso % (Auto) Neut # (Auto) Lymph # (Auto) [place] # (Auto) Eos # (Auto) Baso # (Auto) ESR 57 H D Sodium Potassium Chloride Carbon Dioxide BUN Creatinine Estimated GFR BUN/Creatinine Ratio Glucose Lactate 1.1 Calcium Total Bilirubin AST ALT Alkaline Phosphatase C-Reactive Protein 32.3 H Total Protein Albumin Globulin Albumin/Globulin Ratio Procalcitonin Urine Color Urine Appearance Urine pH Ur Specific [place] Urine Protein Urine Glucose (UA) Urine Ketones Urine Occult Blood Urine Nitrate Urine Bilirubin Urine Urobilinogen Ur Leukocyte Esterase 03/29/19 19:34 WBC RBC Hgb Hct MCV MCH MCHC RDW Plt Count Neut % (Auto) Lymph % (Auto) [place] % (Auto) Eos % (Auto) Baso % (Auto) Neut # (Auto) Lymph # (Auto) [place] # (Auto) Eos # (Auto) Baso # (Auto) ESR Sodium Potassium Chloride Carbon Dioxide BUN Creatinine Estimated GFR BUN/Creatinine Ratio Glucose Lactate Calcium Total Bilirubin AST ALT Alkaline Phosphatase C-Reactive Protein Total Protein Albumin Globulin Albumin/Globulin Ratio Procalcitonin Urine Color Yellow Urine Appearance Clear Urine pH 5.5 Ur Specific [place] 1.010 Urine Protein Negative Urine Glucose (UA) 3+ H Urine Ketones Negative Urine Occult Blood Trace-lysed Urine Nitrate Negative Urine Bilirubin Negative Urine Urobilinogen 0.2 Ur Leukocyte Esterase Negative Assessment & Plan Assessment & Plan narrative: This is a 58-year-old male who was sent to the ER and found to have recurrent osteomyelitis of the 1st metatarsal left foot. Wound culture showing light growth of Staph aureus. 1. Osteomyelitis, recurrent, acute, present on admission, active. -patient with previous therapy for osteomyelitis undergoing 6 weeks IV antibiotics. -more recently the patient has been treated with Levaquin and Bactrim under the care of Dr. Wiggins infectious disease at [facility]. -patient has elevated WBCs at 12.5, CRP at 32.3, ESR 57, lactic acid is normal 1.1, procalcitonin is 0.16. -the patient is seen Dr. Mendosa who was evaluated is consulting, we appreciate Dr. Mendosa's evaluation, treatment and recommendations. -the patient has been started on vancomycin and Zosyn. -ordered PICC line insertion. 2. Chronic diabetic foot ulcer, present on admission, active. -patient with chronic wound plantar surface left foot for over 5 years, undergone skin grafting, wound VAC with reduction in wound size. -today wound is cellulitic in appearance with redness warmth, elevated white count, wound measures 4 cm x 3.5 cm. -the patient is followed by Dr. Jiménez at the wound care clinic, and referred to Dr. Mendosa for evaluation. -ongoing wound care at the direction of Dr. Mendosa. 3. Diabetes type 2, chronic insulin-dependent uncontrolled, present on admission, active. -patient is homeless and has irregular nutritional status taking Lantus and metformin. Patient does not regularly check his blood sugars. -blood sugar on admission is 422 without evidence of acidosis or ketosis. Patient's last hemoglobin A1c was on February 24, 2019 and found to be 12.0. -patient received 10 units of regular insulin IV in the emergency department with minimal drop in glucose to 398 upon arrival to the floor. -patient also received 1 unit of IV fluid in the emergency department. Will repeat 1 L IV normal saline bolus at 250 cc/hour than normal saline at 100 cc/hour. -fingerstick glucose checks AC and HS. -will hold metformin and continue the patient's home regimen of Lantus 45 units at bedtime -ordered correctional insulin low-dose range. -will recheck glucose at midnight tonight. -will recheck chemistries including magnesium and phosphorus in the morning. 4. Homelessness, chronic, active. -patient's care is complicated by homelessness, unstable diet leading to uncontrolled diabetes complicating infection. -patient has been compliant with follow-up appointments and treatments. -patient will be needing 6 weeks of IV antibiotics for osteomyelitis. -consult LUNCH WAGON OPERATOR for community resources and discharge planning. 5. Chronic obstructive pulmonary disease, present on admission, stable. -patient with restrictive lung disease by history. -respiratory therapy to consult evaluate and treat. -albuterol nebulizer every 2 hours as needed. -supplemental oxygen as needed to keep oxygen saturation greater than 90% 6. Current every day smoker, present on admission, active. -patient continues to smoke 3-4 cigarettes per day states he is attempting to quit. -ordered nicotine patch 14 mg topically daily. VTE prophylaxis: Patient refused SCDs, Lovenox daily. Diet: Constant carbohydrate, small. IVF: Normal saline 100 cc/hour. The patient is admitted to the hospital due to severity of symptoms and risk for complications and adverse events. Patient will be requiring IV antibiotics for osteomyelitis and cellulitis. He will be admitted as inpatient with expected length of stay to be greater than 2 midnights. Scores GCS Rachel coma scale eye opening: Spontaneous Rachel coma scale verbal response: Orientated [place] coma scale motor response: Obey commands Rachel coma scale total score: 15
--- NOTE | 2019-03-29 22:54 | PC.NURSE ---
A&Ox4. 93%RA. denied pain. SBA-transfer only, pt unable to walk. L.foot covered w/guaze, kerlix and [place] wrap. pt was febrile 104.8F, administered tylenol, temp down to 97.4. IVF bolus infusing. pt on tele, ST 100-120, provider aware. call light in reach bed alarm active. pt refused to put on a gown. pt also refused to remove his pants, unable to do skin check. pt refused wound assessment.
[2019-03-29 23:45] LABS: Adenovirus Not Detected (Not Detect); Bordetella pertussis Not Detected (Not Detect); Chlamydophila pneumoniae Not Detected (Not Detect); Coronavirus 229E Not Detected (Not Detect); Coronavirus HKU1 Not Detected (Not Detect); Coronavirus NL 63 Not Detected (Not Detect); Coronavirus OC43 Not Detected (Not Detect); Human Metapneumovirus Not Detected (Not Detect); Human Rhinovirus/Enterovirus Not Detected (Not Detect); Influenza A Not Detected (Not Detect); Influenza B Not Detected (Not Detect); Mycoplasma pneumoniae Not Detected (Not Detect); Parainfluenza Virus 1 Not Detected (Not Detect); Parainfluenza Virus 2 Not Detected (Not Detect); Parainfluenza Virus 3 Not Detected (Not Detect); Parainfluenza Virus 4 Not Detected (Not Detect); Respiratory Syncytial Virus Not Detected (Not Detect)
[2019-03-30] VITALS (8 sets, daily range): BP systolic 110–157; BP diastolic 61–95; PULSE 87–109; RESP 16–24; TEMP 36.8–39.1; O2SAT 90–97
[2019-03-30] MEDS: PIPERACILLIN-TAZO 3.375 GM/50 ML FROZ.PIGGY IV ×4 (01:57→20:09)
[2019-03-30] MEDS: SODIUM CHLORIDE 0.9% 1,000 ML 100 ML IV (02:30)
[2019-03-30 03:12] LABS: Enterococcus species Not Detected (Not Detect); Listeria monocytogenes Not Detected (Not Detect); Methicillin-resistant gene Detected (Not Detect); Staphylococcus species Detected (Not Detect); Streptococcus agalactiae (Gr B Not Detected (Not Detect); Streptococcus pneumonia Not Detected (Not Detect); Streptococcus pyogenes (Gr A) Not Detected (Not Detect); Streptococcus species Not Detected (Not Detect)
[2019-03-30 03:13] LABS: Acinetobacter baumannii Not Detected (Not Detect); Candida albicans Not Detected (Not Detect); Candida glabrata Not Detected (Not Detect); Candida krusei Not Detected (Not Detect); Candida parapsilosis Not Detected (Not Detect); Candida tropicalis Not Detected (Not Detect); E. coli Not Detected (Not Detect); Enterobacter cloacae complex Not Detected (Not Detect); Enterobacteriaceae species Not Detected (Not Detect); Haemophilus influenzae Not Detected (Not Detect); Neisseria meningitidis Not Detected (Not Detect); Proteus species Not Detected (Not Detect); Pseudomonas aeruginosa Not Detected (Not Detect); Serratia marcescens Not Detected (Not Detect)
[2019-03-30] MEDS: VANCOMYCIN 1,000 MG/200 ML PIGGYBACK 200 MG IV ×4 (03:21→20:54)
[2019-03-30] MEDS: ACETAMINOPHEN 325 MG TABLET 650 MG PO (03:31)
--- NOTE | 2019-03-30 04:40 | PC.NURSE ---
Addendum entered by Jeffery Calero R.N. 03/30/19 06:38: Dressing on Left foot is clean/dry and intact. CMS intact, patient refused skin assessment other than body parts that were visible. Patient refuses SCD's. Original Note: Patient denies pain. VS tachy on tele, NS. Patient blood glucose check at 0000 was 303 Vamshi ALFORD notified. Patient lung sounds diminished and course rhonchi, inspiratory and expiratory throughout. Lab called at 0245 for critical result, patient with Gram positive clusters in blood cultures Vamshi ALFORD notified. At 0320 lab called again to give results of preliminary Staph Methicillin resistant gene, VAMSHI ALFORD notified. Patient had temperature of 104.3 temporal and 102.3, orally, Vamshi ALFORD notified and 650mg tylenol given at 0331. Patient has been sleeping this night, cooperative. Bed is low and locked, call light within reach, bed alarm on.
[2019-03-30 05:31] LABS: Add Manual Diff / Slide Review NO; Basophils Absolute Auto 100 /uL (0-100); Basophils Percent Auto 0.8 % (0-2); Eosinophils Absolute Auto 100 /uL (0-450); Eosinophils Percent Auto 0.7 % (2-4); Hemoglobin 13.8 g/dL (13.5-17.5); Lymphocytes Absolute Auto 800 /uL (1100-4500); Lymphocytes Percent Auto 9.3 % (25-40); Mean Corpuscular HGB Conc 33.6 % (30-36); Mean Corpuscular Hemoglobin 28.7 PG (26-34); Mean Corpuscular Volume 85.3 fL (80-100); Monocytes Absolute Auto 600 /uL (0-900); Monocytes Percent Auto 6.5 % (3-14); Neutrophils Absolute Auto 7500 /uL (1500-7000); Neutrophils Percent Auto 82.7 % (50-75); Platelet Count 228 X10^3/uL (150-400); White Blood Cell Count 9.1 X10^3/uL (4.5-11.0)
[2019-03-30 05:41] LABS: BUN Creatinine Ratio 18.6 (6-22); Blood Urea Nitrogen 13 mg/dL (9-20); Calcium 8.3 mg/dL (8.4-10.2); Carbon Dioxide 26 mmol/L (22-32); Chloride 99 mmol/L (98-107); Estimated Glomerular Filt Rate > 60.0 mL/min (>60); Glucose 234 mg/dL (70-100); HEMOLYSIS < 15 (0-50); Phosphorous 3.1 mg/dL (2.5-4.5); Potassium 3.5 mmol/L (3.4-5.1); Sodium 134 mmol/L (137-145)
--- NOTE | 2019-03-30 08:41 | PM.PN.1 ---
Subjective Subjective Date Patient Seen: 03/30/19 Time Patient Seen: 08:42 Exam Vital Signs (past 8 hours): - 03/30/19 03:28 03/30/19 05:30 03/30/19 08:00 Temperature 102.3 F H 101.3 F H 98.9 F Pulse Rate 102 H 92 H Respiratory Rate 20 24 Blood Pressure 137/61 110/66 Pulse Oximetry 92 92 Oxygen Delivery Method Room Air Oxygen Flow Rate 0 Objective Labs Result Diagrams: 03/30/19 05:07 03/30/19 05:07 Labs: Laboratory Results - last 24 hr 03/29/19 03/29/19 03/29/19 11:35 11:35 11:35 WBC 12.5 H RBC 5.09 Hgb 14.6 Hct 43.5 MCV 85.3 MCH 28.7 MCHC 33.6 RDW 16.0 H Plt Count 241 Neut % (Auto) 85.5 H Lymph % (Auto) 7.6 L [place] % (Auto) 5.5 Eos % (Auto) 1.0 L Baso % (Auto) 0.4 Neut # (Auto) 04184 H Lymph # (Auto) 900 L [place] # (Auto) 700 Eos # (Auto) 100 Baso # (Auto) 0 ESR Sodium 134 L Potassium 4.0 Chloride 96 L Carbon Dioxide 28 BUN 18 Creatinine 0.70 Estimated GFR > 60.0 BUN/Creatinine Ratio 25.7 H Glucose 422 H Lactate Calcium 9.0 Phosphorus Magnesium Total Bilirubin 0.8 AST 15 L ALT 12 Alkaline Phosphatase 126 C-Reactive Protein Total Protein 7.3 Albumin 3.9 Globulin 3.4 Albumin/Globulin Ratio 1.1 Procalcitonin 0.16 Urine Color Urine Appearance Urine pH Ur Specific [place] Urine Protein Urine Glucose (UA) Urine Ketones Urine Occult Blood Urine Nitrate Urine Bilirubin Urine Urobilinogen Ur Leukocyte Esterase A. baumannii (PCR) Chlamy pneumoniae PCR Adenovirus (PCR) B.parapertussis DNA PCR Dotty albicans (PCR) C. glabrata (PCR) C. krusei (PCR) C. parapsilosis (PCR) C. tropicalis (PCR) Coronavirus OC43 (PCR) Coronavirus HKU1 (PCR) Coronavirus 229E (PCR) Coronavirus NL63 (PCR) Enterobacteriac sp PCR E. cloacae complex PCR Enterococcus sp PCR E. coli (PCR) H. influenzae (PCR) Human Metapneumovir PCR Influenza Type A (PCR) Influenza Type B (PCR) Klebsiella oxytoca PCR Klebsiella pneumoniae List. monocytogenes PCR M. pneumoniae (PCR) N. meningitidis (PCR) Parainfluenza 1 (PCR) Parainfluenza 2 (PCR) Parainfluenza 3 (PCR) Parainfluenza 4 (PCR) Proteus species (PCR) RSV (PCR) Entero/Rhino (PCR) Serratia marcescens PCR Staphylococcus sp PCR Staph aureus (PCR) mecA-Methicil Res Gene Streptococcus sp PCR Group A Strep (PCR) Strep agalactiae (PCR) Strep pneumoniae (PCR) P. aeruginosa (PCR) Oly/B-Vanco Res Genes KPC-Carbap Res Gene PCR 03/29/19 03/29/19 03/29/19 11:35 11:35 11:35 WBC RBC Hgb Hct MCV MCH MCHC RDW Plt Count Neut % (Auto) Lymph % (Auto) [place] % (Auto) Eos % (Auto) Baso % (Auto) Neut # (Auto) Lymph # (Auto) [place] # (Auto) Eos # (Auto) Baso # (Auto) ESR 57 H D Sodium Potassium Chloride Carbon Dioxide BUN Creatinine Estimated GFR BUN/Creatinine Ratio Glucose Lactate 1.1 Calcium Phosphorus Magnesium Total Bilirubin AST ALT Alkaline Phosphatase C-Reactive Protein 32.3 H Total Protein Albumin Globulin Albumin/Globulin Ratio Procalcitonin Urine Color Urine Appearance Urine pH Ur Specific [place] Urine Protein Urine Glucose (UA) Urine Ketones Urine Occult Blood Urine Nitrate Urine Bilirubin Urine Urobilinogen Ur Leukocyte Esterase A. baumannii (PCR) Chlamy pneumoniae PCR Adenovirus (PCR) B.parapertussis DNA PCR Dotty albicans (PCR) C. glabrata (PCR) C. krusei (PCR) C. parapsilosis (PCR) C. tropicalis (PCR) Coronavirus OC43 (PCR) Coronavirus HKU1 (PCR) Coronavirus 229E (PCR) Coronavirus NL63 (PCR) Enterobacteriac sp PCR E. cloacae complex PCR Enterococcus sp PCR E. coli (PCR) H. influenzae (PCR) Human Metapneumovir PCR Influenza Type A (PCR) Influenza Type B (PCR) Klebsiella oxytoca PCR Klebsiella pneumoniae List. monocytogenes PCR M. pneumoniae (PCR) N. meningitidis (PCR) Parainfluenza 1 (PCR) Parainfluenza 2 (PCR) Parainfluenza 3 (PCR) Parainfluenza 4 (PCR) Proteus species (PCR) RSV (PCR) Entero/Rhino (PCR) Serratia marcescens PCR Staphylococcus sp PCR Staph aureus (PCR) mecA-Methicil Res Gene Streptococcus sp PCR Group A Strep (PCR) Strep agalactiae (PCR) Strep pneumoniae (PCR) P. aeruginosa (PCR) Oly/B-Vanco Res Genes KPC-Carbap Res Gene PCR 03/29/19 03/29/19 03/30/19 19:34 22:27 05:07 WBC 9.1 RBC 4.80 Hgb 13.8 Hct 41.0 MCV 85.3 MCH 28.7 MCHC 33.6 RDW 16.0 H Plt Count 228 Neut % (Auto) 82.7 H Lymph % (Auto) 9.3 L [place] % (Auto) 6.5 Eos % (Auto) 0.7 L Baso % (Auto) 0.8 Neut # (Auto) 7500 H Lymph # (Auto) 800 L [place] # (Auto) 600 Eos # (Auto) 100 Baso # (Auto) 100 ESR Sodium Potassium Chloride Carbon Dioxide BUN Creatinine Estimated GFR BUN/Creatinine Ratio Glucose Lactate Calcium Phosphorus Magnesium Total Bilirubin AST ALT Alkaline Phosphatase C-Reactive Protein Total Protein Albumin Globulin Albumin/Globulin Ratio Procalcitonin Urine Color Yellow Urine Appearance Clear Urine pH 5.5 Ur Specific [place] 1.010 Urine Protein Negative Urine Glucose (UA) 3+ H Urine Ketones Negative Urine Occult Blood Trace-lysed Urine Nitrate Negative Urine Bilirubin Negative Urine Urobilinogen 0.2 Ur Leukocyte Esterase Negative A. baumannii (PCR) Chlamy pneumoniae PCR Not detected Adenovirus (PCR) Not detected B.parapertussis DNA PCR Not detected Dotty albicans (PCR) C. glabrata (PCR) C. krusei (PCR) C. parapsilosis (PCR) C. tropicalis (PCR) Coronavirus OC43 (PCR) Not detected Coronavirus HKU1 (PCR) Not detected Coronavirus 229E (PCR) Not detected Coronavirus NL63 (PCR) Not detected Enterobacteriac sp PCR E. cloacae complex PCR Enterococcus sp PCR E. coli (PCR) H. influenzae (PCR) Human Metapneumovir PCR Not detected Influenza Type A (PCR) Not detected Influenza Type B (PCR) Not detected Klebsiella oxytoca PCR Klebsiella pneumoniae List. monocytogenes PCR M. pneumoniae (PCR) Not detected N. meningitidis (PCR) Parainfluenza 1 (PCR) Not detected Parainfluenza 2 (PCR) Not detected Parainfluenza 3 (PCR) Not detected Parainfluenza 4 (PCR) Not detected Proteus species (PCR) RSV (PCR) Not detected Entero/Rhino (PCR) Not detected Serratia marcescens PCR Staphylococcus sp PCR Staph aureus (PCR) mecA-Methicil Res Gene Streptococcus sp PCR Group A Strep (PCR) Strep agalactiae (PCR) Strep pneumoniae (PCR) P. aeruginosa (PCR) [place]/B-Vanco Res Genes KPC-Carbap Res Gene PCR 03/30/19 03/30/19 05:07 11:35 WBC RBC Hgb Hct MCV MCH MCHC RDW Plt Count Neut % (Auto) Lymph % (Auto) [place] % (Auto) Eos % (Auto) Baso % (Auto) Neut # (Auto) Lymph # (Auto) [place] # (Auto) Eos # (Auto) Baso # (Auto) ESR Sodium 134 L Potassium 3.5 Chloride 99 Carbon Dioxide 26 BUN 13 Creatinine 0.70 Estimated GFR > 60.0 BUN/Creatinine Ratio 18.6 Glucose 234 H D Lactate Calcium 8.3 L Phosphorus 3.1 Magnesium 2.0 Total Bilirubin AST ALT Alkaline Phosphatase C-Reactive Protein Total Protein Albumin Globulin Albumin/Globulin Ratio Procalcitonin Urine Color Urine Appearance Urine pH Ur Specific [place] Urine Protein Urine Glucose (UA) Urine Ketones Urine Occult Blood Urine Nitrate Urine Bilirubin Urine Urobilinogen Ur Leukocyte Esterase A. baumannii (PCR) Not detected Chlamy pneumoniae PCR Adenovirus (PCR) B.parapertussis DNA PCR Dotty albicans (PCR) Not detected C. glabrata (PCR) Not detected C. krusei (PCR) Not detected C. parapsilosis (PCR) Not detected C. tropicalis (PCR) Not detected Coronavirus OC43 (PCR) Coronavirus HKU1 (PCR) Coronavirus 229E (PCR) Coronavirus NL63 (PCR) Enterobacteriac sp PCR Not detected E. cloacae complex PCR Not detected Enterococcus sp PCR Not detected E. coli (PCR) Not detected H. influenzae (PCR) Not detected Human Metapneumovir PCR Influenza Type A (PCR) Influenza Type B (PCR) Klebsiella oxytoca PCR Not detected Klebsiella pneumoniae Not detected List. monocytogenes PCR Not detected M. pneumoniae (PCR) N. meningitidis (PCR) Not detected Parainfluenza 1 (PCR) Parainfluenza 2 (PCR) Parainfluenza 3 (PCR) Parainfluenza 4 (PCR) Proteus species (PCR) Not detected RSV (PCR) Entero/Rhino (PCR) Serratia marcescens PCR Not detected Staphylococcus sp PCR Detected H Staph aureus (PCR) Detected H mecA-Methicil Res Gene Detected H Streptococcus sp PCR Not detected Group A Strep (PCR) Not detected Strep agalactiae (PCR) Not detected Strep pneumoniae (PCR) Not detected P. aeruginosa (PCR) Not detected O[place]/B-Vanco Res Genes Not Reportable KPC-Carbap Res Gene PCR Not Reportable
--- NOTE | 2019-03-30 09:02 | DI.RAD.S_ITS ---
PROCEDURE: XR CHEST FOR PICC 1V INDICATIONS: Line Placement TECHNIQUE: One view of the chest was acquired. COMPARISON: [facility], CR, XR CHEST FOR PICC 1V, 11/22/2018, 12:51. FINDINGS: Surgical changes and devices: A left-sided PICC line catheter is identified with the tip overlying the superior vena cava. Lungs and pleura: Perihilar interstitial prominence is identified. There are are mild areas of consolidation at the left lung base in the right lung base. No effusion or pneumothorax is identified. Mediastinum: Mediastinal contours appear normal. Heart size is normal. There is aortic atherosclerosis. Bones and chest wall: No suspicious bony lesions. Overlying soft tissues appear unremarkable. IMPRESSION: 1. Left-sided PICC line catheter is positioned with the tip overlying the mid superior vena cava. 2. Mild bibasilar atelectasis. Dictated by: Cm Purcell M.D. on 03/30/2019 at 8:38 Approved by: Cm Purcell M.D. on 03/30/2019 at 8:40
[2019-03-30] MEDS: INSULIN ASPART 100 UNIT/ML INSULN PEN SUBCUT ×4 (09:19→20:52)
[2019-03-30] MEDS: FLUTICASONE 120 SPRAY/16 GM SPRAY.SUSP NASAL ×2 (09:19→20:14)
[2019-03-30] MEDS: ENOXAPARIN 40 MG/0.4 ML SYRINGE SUBCUT (09:19)
[2019-03-30] MEDS: INSULIN GLARGINE 100 UNIT/ML 3ML PEN 45 UNIT SUBCUT ×2 (09:19→20:52)
[2019-03-30] MEDS: NICOTINE 14 PATCH 14 MG TOP (09:20)
--- NOTE | 2019-03-30 13:51 | PM.PNPO.1 ---
Subjective Subjective Date Patient Seen: 03/30/19 Time Patient Seen: 13:51 Interval history: Patient is HD #5 Left foot osteomyelitis chronic ulceration. No complaints. Denies fever, chills, chest pain, shortness of breath, nausea, vomiting Exam Vital Signs (past 8 hours): - 03/30/19 08:00 03/30/19 11:45 Temperature 98.9 F 99.5 F Pulse Rate 92 H 98 H Respiratory Rate 24 24 Blood Pressure 110/66 116/69 Pulse Oximetry 92 90 L Oxygen Delivery Method Room Air Oxygen Flow Rate 0 Objective Labs Result Diagrams: 04/02/19 05:00 04/02/19 05:00 Labs: Laboratory Results - last 24 hr 03/29/19 03/29/19 03/30/19 19:34 22:27 05:07 WBC 9.1 RBC 4.80 Hgb 13.8 Hct 41.0 MCV 85.3 MCH 28.7 MCHC 33.6 RDW 16.0 H Plt Count 228 Neut % (Auto) 82.7 H Lymph % (Auto) 9.3 L [place] % (Auto) 6.5 Eos % (Auto) 0.7 L Baso % (Auto) 0.8 Neut # (Auto) 7500 H Lymph # (Auto) 800 L [place] # (Auto) 600 Eos # (Auto) 100 Baso # (Auto) 100 Sodium Potassium Chloride Carbon Dioxide BUN Creatinine Estimated GFR BUN/Creatinine Ratio Glucose Calcium Phosphorus Magnesium Urine Color Yellow Urine Appearance Clear Urine pH 5.5 Ur Specific [place] 1.010 Urine Protein Negative Urine Glucose (UA) 3+ H Urine Ketones Negative Urine Occult Blood Trace-lysed Urine Nitrate Negative Urine Bilirubin Negative Urine Urobilinogen 0.2 Ur Leukocyte Esterase Negative A. baumannii (PCR) Chlamy pneumoniae PCR Not detected Adenovirus (PCR) Not detected B.parapertussis DNA PCR Not detected Dotty albicans (PCR) C. glabrata (PCR) C. krusei (PCR) C. parapsilosis (PCR) C. tropicalis (PCR) Coronavirus OC43 (PCR) Not detected Coronavirus HKU1 (PCR) Not detected Coronavirus 229E (PCR) Not detected Coronavirus NL63 (PCR) Not detected Enterobacteriac sp PCR E. cloacae complex PCR Enterococcus sp PCR E. coli (PCR) H. influenzae (PCR) Human Metapneumovir PCR Not detected Influenza Type A (PCR) Not detected Influenza Type B (PCR) Not detected Klebsiella oxytoca PCR Klebsiella pneumoniae List. monocytogenes PCR M. pneumoniae (PCR) Not detected N. meningitidis (PCR) Parainfluenza 1 (PCR) Not detected Parainfluenza 2 (PCR) Not detected Parainfluenza 3 (PCR) Not detected Parainfluenza 4 (PCR) Not detected Proteus species (PCR) RSV (PCR) Not detected Entero/Rhino (PCR) Not detected Serratia marcescens PCR Staphylococcus sp PCR Staph aureus (PCR) mecA-Methicil Res Gene Streptococcus sp PCR Group A Strep (PCR) Strep agalactiae (PCR) Strep pneumoniae (PCR) P. aeruginosa (PCR) Oly/B-Vanco Res Genes KPC-Carbap Res Gene PCR 03/30/19 03/30/19 05:07 11:35 WBC RBC Hgb Hct MCV MCH MCHC RDW Plt Count Neut % (Auto) Lymph % (Auto) [place] % (Auto) Eos % (Auto) Baso % (Auto) Neut # (Auto) Lymph # (Auto) [place] # (Auto) Eos # (Auto) Baso # (Auto) Sodium 134 L Potassium 3.5 Chloride 99 Carbon Dioxide 26 BUN 13 Creatinine 0.70 Estimated GFR > 60.0 BUN/Creatinine Ratio 18.6 Glucose 234 H D Calcium 8.3 L Phosphorus 3.1 Magnesium 2.0 Urine Color Urine Appearance Urine pH Ur Specific [place] Urine Protein Urine Glucose (UA) Urine Ketones Urine Occult Blood Urine Nitrate Urine Bilirubin Urine Urobilinogen Ur Leukocyte Esterase A. baumannii (PCR) Not detected Chlamy pneumoniae PCR Adenovirus (PCR) B.parapertussis DNA PCR Dotty albicans (PCR) Not detected C. glabrata (PCR) Not detected C. krusei (PCR) Not detected C. parapsilosis (PCR) Not detected C. tropicalis (PCR) Not detected Coronavirus OC43 (PCR) Coronavirus HKU1 (PCR) Coronavirus 229E (PCR) Coronavirus NL63 (PCR) Enterobacteriac sp PCR Not detected E. cloacae complex PCR Not detected Enterococcus sp PCR Not detected E. coli (PCR) Not detected H. influenzae (PCR) Not detected Human Metapneumovir PCR Influenza Type A (PCR) Influenza Type B (PCR) Klebsiella oxytoca PCR Not detected Klebsiella pneumoniae Not detected List. monocytogenes PCR Not detected M. pneumoniae (PCR) N. meningitidis (PCR) Not detected Parainfluenza 1 (PCR) Parainfluenza 2 (PCR) Parainfluenza 3 (PCR) Parainfluenza 4 (PCR) Proteus species (PCR) Not detected RSV (PCR) Entero/Rhino (PCR) Serratia marcescens PCR Not detected Staphylococcus sp PCR Detected H Staph aureus (PCR) Detected H mecA-Methicil Res Gene Detected H Streptococcus sp PCR Not detected Group A Strep (PCR) Not detected Strep agalactiae (PCR) Not detected Strep pneumoniae (PCR) Not detected P. aeruginosa (PCR) Not detected Oly/B-Vanco Res Genes Not Reportable KPC-Carbap Res Gene PCR Not Reportable
--- NOTE | 2019-03-30 14:03 | CM.IDA ---
Initial DCP Assessment Note: Pt is a 58 yo male, homeless living in his truck, admitted IP . Per H+P Narrative: Mr. David Givens is a 50-year-old male patient with history significant for chronic diabetic ulcer left foot, chronic osteomyelitis, diabetes type 2 with polyneuropathy and COPD with restrictive lung disease who was sent to the ER by Dr. Mendosa for concerns of osteomyelitis. PCP: Lynn Yeager: Junior/LIZ Duran Reviewed chart, pt discussed in multidisciplinary rounds this morning. According to Dr Benson, pt is expected to need ongoing IV abx again. David is familiar to this DC planning team from multiple prior admissions. Pt was admitted in November 2018 and had DC back to his truck w/outpt IV abx infusion arranged and close outpt f/u. Per notes, ANGIE Elias/[facility] w/ the [facility] program through Dr Morales's office had been assisting David in resource development; a new application for senior living care had been [facility] in early. This [employer]ICATOR attempted assessment today but pt has been sleeping throughout the day; which is not unusual for pt from historic visits. Culture results are pending. This STOCK PARTS FABRICATOR will plan to completed bedside assessment . ANGIE Cantu
--- NOTE | 2019-03-30 14:48 | PM.PN.1 ---
Subjective Subjective Date Patient Seen: 03/30/19 Time Patient Seen: 14:49 Interval history: Mr. David Givens is a 50-year-old male patient with history significant for chronic diabetic ulcer left foot, chronic osteomyelitis, diabetes type 2 with polyneuropathy and COPD with restrictive lung disease who was sent to the ER by Dr. Mendosa for concerns of osteomyelitis. The patient reports that he feels like his wound was improving, however he does note fevers and chills over the past 1-2 days. He denies any nausea, vomiting, abdominal pain, diarrhea, or constipation. His blood cultures were positive for MRSA yesterday. Repeat blood cultures today again showed gram-positive cocci. He will need daily blood cultures until they clear. His previous wound cultures did grow MRSA and this is likely his source. If his infection does not clear, additional investigations into the source of the bacteremia may be necessary. Exam Vital Signs (past 8 hours): - 03/30/19 08:00 03/30/19 11:45 Temperature 98.9 F 99.5 F Pulse Rate 92 H 98 H Respiratory Rate 24 24 Blood Pressure 110/66 116/69 Pulse Oximetry 92 90 L Oxygen Delivery Method Room Air Oxygen Flow Rate 0 Narrative Exam Narrative: GENERAL APPEARANCE: well developed, unkempt, disheveled, obese, in no acute distress. HEENT: Normocephalic, PERRLA, conjunctiva clear, EOMs intact without nystagmus, no sinus tenderness to percussion, no rhinorrhea, mucous membranes are moist and pink without lesions or exudate. NECK/THYROID: neck supple, no JVD, no thyromegaly, trachea midline. LYMPH NODES: no cervical or supraclavicular lymphadenopathy. SKIN: [place], warm and dry, skin left foot dry with scaling. HEART: regular rate and rhythm, S1-S2, no murmur appreciated, no rubs or gallops, brisk capillary refill, no edema LUNGS: clear but diminished on auscultation bilaterally, no coarseness crackles or wheezing, no cough present CHEST: Symmetrical movement, no accessory muscle use, good tidal volume. ABDOMEN: Soft, no distention, no abdominal tenderness, no guarding or peritoneal signs, no organomegaly, no flank tenderness, active bowel tones. BACK: Normal curvature, nontender to palpation, no CVA tenderness on percussion EXTREMITIES: 4 cm x 3.5 cm deep ulcer with packing plantar surface left 1st metatarsal, erythema of the medial implanted service with warmth, moves all extremities, strength is 5/5 and symmetrical, no deformities or joint effusions. NEUROLOGIC: AAO x4, cranial nerves II-XII grossly intact, dense neuropathy left foot with decreased sensation up to the level of the tibial tubercle. PSYCH: Cooperative, appropriate with stable behavior Objective Labs Result Diagrams: 03/30/19 05:07 03/30/19 05:07 Labs: Laboratory Results - last 24 hr 03/29/19 03/29/19 03/30/19 19:34 22:27 05:07 WBC 9.1 RBC 4.80 Hgb 13.8 Hct 41.0 MCV 85.3 MCH 28.7 MCHC 33.6 RDW 16.0 H Plt Count 228 Neut % (Auto) 82.7 H Lymph % (Auto) 9.3 L [place] % (Auto) 6.5 Eos % (Auto) 0.7 L Baso % (Auto) 0.8 Neut # (Auto) 7500 H Lymph # (Auto) 800 L [place] # (Auto) 600 Eos # (Auto) 100 Baso # (Auto) 100 Sodium Potassium Chloride Carbon Dioxide BUN Creatinine Estimated GFR BUN/Creatinine Ratio Glucose Calcium Phosphorus Magnesium Urine Color Yellow Urine Appearance Clear Urine pH 5.5 Ur Specific [place] 1.010 Urine Protein Negative Urine Glucose (UA) 3+ H Urine Ketones Negative Urine Occult Blood Trace-lysed Urine Nitrate Negative Urine Bilirubin Negative Urine Urobilinogen 0.2 Ur Leukocyte Esterase Negative A. baumannii (PCR) Chlamy pneumoniae PCR Not detected Adenovirus (PCR) Not detected B.parapertussis DNA PCR Not detected Dotty albicans (PCR) C. glabrata (PCR) C. krusei (PCR) C. parapsilosis (PCR) C. tropicalis (PCR) Coronavirus OC43 (PCR) Not detected Coronavirus HKU1 (PCR) Not detected Coronavirus 229E (PCR) Not detected Coronavirus NL63 (PCR) Not detected Enterobacteriac sp PCR E. cloacae complex PCR Enterococcus sp PCR E. coli (PCR) H. influenzae (PCR) Human Metapneumovir PCR Not detected Influenza Type A (PCR) Not detected Influenza Type B (PCR) Not detected Klebsiella oxytoca PCR Klebsiella pneumoniae List. monocytogenes PCR M. pneumoniae (PCR) Not detected N. meningitidis (PCR) Parainfluenza 1 (PCR) Not detected Parainfluenza 2 (PCR) Not detected Parainfluenza 3 (PCR) Not detected Parainfluenza 4 (PCR) Not detected Proteus species (PCR) RSV (PCR) Not detected Entero/Rhino (PCR) Not detected Serratia marcescens PCR Staphylococcus sp PCR Staph aureus (PCR) mecA-Methicil Res Gene Streptococcus sp PCR Group A Strep (PCR) Strep agalactiae (PCR) Strep pneumoniae (PCR) P. aeruginosa (PCR) Oly/B-Vanco Res Genes KPC-Carbap Res Gene PCR 03/30/19 03/30/19 05:07 11:35 WBC RBC Hgb Hct MCV MCH MCHC RDW Plt Count Neut % (Auto) Lymph % (Auto) [place] % (Auto) Eos % (Auto) Baso % (Auto) Neut # (Auto) Lymph # (Auto) [place] # (Auto) Eos # (Auto) Baso # (Auto) Sodium 134 L Potassium 3.5 Chloride 99 Carbon Dioxide 26 BUN 13 Creatinine 0.70 Estimated GFR > 60.0 BUN/Creatinine Ratio 18.6 Glucose 234 H D Calcium 8.3 L Phosphorus 3.1 Magnesium 2.0 Urine Color Urine Appearance Urine pH Ur Specific [place] Urine Protein Urine Glucose (UA) Urine Ketones Urine Occult Blood Urine Nitrate Urine Bilirubin Urine Urobilinogen Ur Leukocyte Esterase A. baumannii (PCR) Not detected Chlamy pneumoniae PCR Adenovirus (PCR) B.parapertussis DNA PCR Dotty albicans (PCR) Not detected C. glabrata (PCR) Not detected C. krusei (PCR) Not detected C. parapsilosis (PCR) Not detected C. tropicalis (PCR) Not detected Coronavirus OC43 (PCR) Coronavirus HKU1 (PCR) Coronavirus 229E (PCR) Coronavirus NL63 (PCR) Enterobacteriac sp PCR Not detected E. cloacae complex PCR Not detected Enterococcus sp PCR Not detected E. coli (PCR) Not detected H. influenzae (PCR) Not detected Human Metapneumovir PCR Influenza Type A (PCR) Influenza Type B (PCR) Klebsiella oxytoca PCR Not detected Klebsiella pneumoniae Not detected List. monocytogenes PCR Not detected M. pneumoniae (PCR) N. meningitidis (PCR) Not detected Parainfluenza 1 (PCR) Parainfluenza 2 (PCR) Parainfluenza 3 (PCR) Parainfluenza 4 (PCR) Proteus species (PCR) Not detected RSV (PCR) Entero/Rhino (PCR) Serratia marcescens PCR Not detected Staphylococcus sp PCR Detected H Staph aureus (PCR) Detected H mecA-Methicil Res Gene Detected H Streptococcus sp PCR Not detected Group A Strep (PCR) Not detected Strep agalactiae (PCR) Not detected Strep pneumoniae (PCR) Not detected P. aeruginosa (PCR) Not detected Oly/B-Vanco Res Genes Not Reportable KPC-Carbap Res Gene PCR Not Reportable Assessment & Plan Assessment & Plan narrative: This is a 58-year-old male who was sent to the ER and found to have recurrent osteomyelitis of the 1st metatarsal left foot. Blood cultures drawn in the emergency room were positive for MRSA, and they remain positive today. He will need prolonged therapy with IV antibiotics. 1. MRSA bacteremia, acute, present on admission -source is likely his chronic lower extremity wound and osteomyelitis given previous cultures showing MRSA. He has no other evidence on exam of endocarditis but if bacteremia does not clear further investigation is warranted. -continue vancomycin per pharmacy, follow up blood sensitivities to insure not resistant to vancomycin. 2. Osteomyelitis, recurrent, acute, present on admission, active. -patient with previous therapy for osteomyelitis undergoing 6 weeks IV antibiotics. -more recently the patient has been treated with Levaquin and Bactrim under the care of Dr. Wiggins infectious disease at [facility]. -patient has elevated WBCs at 12.5, CRP at 32.3, ESR 57, lactic acid is normal 1.1, procalcitonin is 0.16. -the patient is seen Dr. Mendosa who was evaluated is consulting, we appreciate Dr. Mendosa's evaluation, treatment and recommendations. -the patient has been started on vancomycin and Zosyn per orthopedics. -PICC line has been placed. 3. Chronic diabetic foot ulcer, present on admission, active. -patient with chronic wound plantar surface left foot for over 5 years, undergone skin grafting, wound VAC with reduction in wound size. -today wound is cellulitic in appearance with redness warmth, elevated white count, wound measures 4 cm x 3.5 cm. -the patient is followed by Dr. Jiménez at the wound care clinic, and referred to Dr. Mendosa for evaluation. -ongoing wound care at the direction of Dr. Mendosa. 4. Diabetes type 2, chronic insulin-dependent uncontrolled, present on admission, active. -patient is homeless and has irregular nutritional status taking Lantus and metformin. Patient does not regularly check his blood sugars. -blood sugar on admission is 422 without evidence of acidosis or ketosis. Patient's last hemoglobin A1c was on February 24, 2019 and found to be 12.0. -patient received 10 units of regular insulin IV in the emergency department with minimal drop in glucose to 398 upon arrival to the floor. -patient also received adequate IVF in the ED. Can discontinue fluids now. -fingerstick glucose checks AC and HS. -will hold metformin and continue the patient's home regimen of Lantus 45 units at bedtime -ordered correctional insulin low-dose range. 5. Homelessness, chronic, active. -patient's care is complicated by homelessness, unstable diet leading to uncontrolled diabetes complicating infection. -patient has been compliant with follow-up appointments and treatments. -patient will be needing 6 weeks of IV antibiotics for osteomyelitis. -consult [employer] for community resources and discharge planning. 6. Chronic obstructive pulmonary disease, present on admission, stable. -patient with restrictive lung disease by history. -respiratory therapy to consult evaluate and treat. -albuterol nebulizer every 2 hours as needed. -supplemental oxygen as needed to keep oxygen saturation greater than 90% 7. Current every day smoker, present on admission, active. -patient continues to smoke 3-4 cigarettes per day states he is attempting to quit. -ordered nicotine patch 14 mg topically daily. VTE prophylaxis: Patient refused SCDs, Lovenox daily. Diet: Constant carbohydrate, small. IVF: Can discontinue today. The patient is admitted to the hospital due to severity of symptoms and risk for complications and adverse events. Patient will be requiring IV antibiotics for osteomyelitis, cellulitis, and MRSA bacteremia. He will be admitted as inpatient with expected length of stay to be greater than 2 midnights.
--- NOTE | 2019-03-30 15:26 | PC.NURSE ---
Patient calm and cooperative this shift, using urinal independently, and calling appropriately for needs. Denies pain or other complaint. IV antibiotic therapy as ordered. PICC line was placed this morning as ordered, and patient tolerated well. Dressing to left foot changed as ordered with photographs taken (see assessment), patient tolerated well. Call light within reach.
[2019-03-30] MEDS: VANCOMYCIN TROUGH 1 REQUEST MISC (15:57)
--- NOTE | 2019-03-30 19:41 | PC.NURSE ---
post op/urology pt returned to AC from PACU at 1930. VSS with 2L O2 applied. alert and oriented. Denies any pain/discomfort. Moise to gravity with clear yellow urine. Encouraged to use call light for needs.
[2019-03-30] MEDS: ALBUTEROL 2.5 MG/3 ML NEB (ADULT) INH (21:30)
[2019-03-31] VITALS (9 sets, daily range): BP systolic 110–155; BP diastolic 65–103; PULSE 79–100; RESP 18–24; TEMP 36.2–37.2; O2SAT 92–97
--- NOTE | 2019-03-31 01:29 | PC.NURSE ---
Addendum entered by Jo Ann Borja R.N. 03/31/19 01:34: correction to previous documentation: foot ulcer/dressing is on left foot. Original Note: Patient is alert and oriented; cooperative. Breath sounds diminished with late expiratory wheeze throughout; O2 sat on RA 92%. States he does feel SOB at times. HRR; telemetry reading was SR. Denies nausea. BT present. Voiding per urinal; denies dysuria, frequency or urgency. Able to turn self in bed. Currently not ambulating due to right foot ulcer but is able to transfer to a wheelchair with assistance. Noted some scratches on left UE and cheek; refuses to allow staff to do any additional skin check. Dressing to right foot is CDI. Denies pain at this time. Refuses SCD's so reminded to ankle wave when awake. On contact isolation due to MRSA bacteremia. Fall risk score is high and bed alarm is activated.
[2019-03-31] MEDS: PIPERACILLIN-TAZO 3.375 GM/50 ML FROZ.PIGGY IV ×4 (02:15→20:20)
[2019-03-31] MEDS: SODIUM CHLORIDE 0.9% FLUSH 10 ML IV ×3 (02:16→20:21)
[2019-03-31] MEDS: VANCOMYCIN 1,000 MG/200 ML PIGGYBACK 200 MG IV ×4 (02:54→20:21)
[2019-03-31 04:54] LABS: Add Manual Diff / Slide Review NO; Basophils Absolute Auto 100 /uL (0-100); Basophils Percent Auto 0.8 % (0-2); Eosinophils Absolute Auto 200 /uL (0-450); Eosinophils Percent Auto 3.2 % (2-4); Hematocrit 38.8 % (41-53); Hemoglobin 12.9 g/dL (13.5-17.5); Lymphocytes Absolute Auto 1100 /uL (1100-4500); Lymphocytes Percent Auto 16.3 % (25-40); Mean Corpuscular HGB Conc 33.4 % (30-36); Mean Corpuscular Hemoglobin 28.6 PG (26-34); Mean Corpuscular Volume 85.8 fL (80-100); Monocytes Absolute Auto 700 /uL (0-900); Monocytes Percent Auto 9.8 % (3-14); Neutrophils Absolute Auto 4800 /uL (1500-7000); Neutrophils Percent Auto 69.9 % (50-75); Platelet Count 230 X10^3/uL (150-400); Red Blood Cell Count 4.52 X10^6/uL (4.5-5.9); Red Cell Distribution Width 15.9 % (11.6-14.8); White Blood Cell Count 6.9 X10^3/uL (4.5-11.0)
[2019-03-31 05:18] LABS: BUN Creatinine Ratio 18.8 (6-22); Blood Urea Nitrogen 15 mg/dL (9-20); Calcium 8.3 mg/dL (8.4-10.2); Carbon Dioxide 28 mmol/L (22-32); Chloride 102 mmol/L (98-107); Estimated Glomerular Filt Rate > 60.0 mL/min (>60); Glucose 215 mg/dL (70-100); HEMOLYSIS < 15 (0-50); Magnesium 2.1 mg/dL (1.6-2.3); Potassium 3.4 mmol/L (3.4-5.1); Sodium 136 mmol/L (137-145)
[2019-03-31] MEDS: FLUTICASONE 120 SPRAY/16 GM SPRAY.SUSP NASAL ×2 (08:21→20:21)
[2019-03-31] MEDS: ENOXAPARIN 40 MG/0.4 ML SYRINGE SUBCUT (08:22)
[2019-03-31] MEDS: NICOTINE 14 PATCH 14 MG TOP (08:22)
[2019-03-31] MEDS: INSULIN ASPART 100 UNIT/ML INSULN PEN SUBCUT ×4 (08:23→22:05)
[2019-03-31] MEDS: INSULIN GLARGINE 100 UNIT/ML 3ML PEN 45 UNIT SUBCUT (08:26)
--- NOTE | 2019-03-31 10:05 | PM.PN.1 ---
Subjective Subjective Date Patient Seen: 03/31/19 Time Patient Seen: 09:45 Interval history: Mr. David Givens is a 50-year-old male patient with history significant for chronic diabetic ulcer left foot, chronic osteomyelitis, diabetes type 2 with polyneuropathy and COPD with restrictive lung disease who was sent to the ER by Dr. Mendosa for concerns of osteomyelitis. The patient has no complaints today, and denies pain, fever, chills, rash, nausea, vomiting. His blood cultures were positive for MRSA and remain positive at this time, pending repeat cultures today. He also had a proteus sp in another blood culture, which further indicates osteomyelitis and his chronic wound as the source. He will need daily blood cultures until they clear. He is requiring frequently vancomycin dosing at this time, and will need prolonged antibiotic therapy. Will consider infectious disease depending on MRSA isolates for optimal antibiotic selection and duration given complex social situation in this patient. Exam Vital Signs (past 8 hours): - 03/31/19 05:30 03/31/19 08:00 Temperature 98.9 F 98.8 F Pulse Rate 85 87 Respiratory Rate 18 24 Blood Pressure 110/66 134/72 Pulse Oximetry 93 94 Oxygen Delivery Method Room Air Oxygen Flow Rate 0 Narrative Exam Narrative: GENERAL APPEARANCE: well developed, unkempt, disheveled, obese, in no acute distress. HEENT: Normocephalic, PERRLA, conjunctiva clear, EOMs intact without nystagmus, no sinus tenderness to percussion, no rhinorrhea, mucous membranes are moist and pink without lesions or exudate. NECK/THYROID: neck supple, no JVD, no thyromegaly, trachea midline. LYMPH NODES: no cervical or supraclavicular lymphadenopathy. SKIN: [place], warm and dry, skin left foot dry with scaling. previously marked area without erythema or induration. HEART: regular rate and rhythm, S1-S2, no murmur appreciated, no rubs or gallops, brisk capillary refill, no edema LUNGS: clear but diminished on auscultation bilaterally, no coarseness crackles or wheezing, no cough present CHEST: Symmetrical movement, no accessory muscle use, good tidal volume. ABDOMEN: Soft, no distention, no abdominal tenderness, no guarding or peritoneal signs, no organomegaly, no flank tenderness, active bowel tones. BACK: Normal curvature, nontender to palpation, no CVA tenderness on percussion EXTREMITIES: 4 cm x 3.5 cm deep ulcer with packing plantar surface left 1st metatarsal, erythema of the medial implanted service with warmth, moves all extremities, strength is 5/5 and symmetrical, no deformities or joint effusions. NEUROLOGIC: AAO x4, cranial nerves II-XII grossly intact, dense neuropathy left foot with decreased sensation up to the level of the tibial tubercle. PSYCH: Cooperative, appropriate with stable behavior Objective Labs Result Diagrams: 03/31/19 04:10 03/31/19 04:10 Labs: Laboratory Results - last 24 hr 03/30/19 03/31/19 03/31/19 14:40 04:10 04:10 WBC 6.9 RBC 4.52 Hgb 12.9 L Hct 38.8 L MCV 85.8 MCH 28.6 MCHC 33.4 RDW 15.9 H Plt Count 230 Neut % (Auto) 69.9 Lymph % (Auto) 16.3 L [place] % (Auto) 9.8 Eos % (Auto) 3.2 Baso % (Auto) 0.8 Neut # (Auto) 4800 Lymph # (Auto) 1100 [place] # (Auto) 700 Eos # (Auto) 200 Baso # (Auto) 100 Sodium 136 L Potassium 3.4 Chloride 102 Carbon Dioxide 28 BUN 15 Creatinine 0.80 Estimated GFR > 60.0 BUN/Creatinine Ratio 18.8 Glucose 215 H Calcium 8.3 L Magnesium 2.1 Vancomycin Trough 12.0 Assessment & Plan Assessment & Plan narrative: manuela Givens is a 50-year-old male patient with history significant for chronic diabetic ulcer left foot, chronic osteomyelitis, diabetes type 2 with polyneuropathy and COPD with restrictive lung disease who was sent to the ER by Dr. Mendosa for concerns of osteomyelitis, blood cultures drawn were positive for MRSA bacteremia, and a proteus sp. is now growing from . MRSA and proteus bacteremia, acute, present on admission -source is likely his chronic lower extremity wound and osteomyelitis given previous cultures showing MRSA and proteus. He has no other evidence on exam of endocarditis but if bacteremia does not clear further investigation is warranted. -continue vancomycin per pharmacy, follow up blood sensitivities to insure not resistant to vancomycin. Consider ID consultation for possible daptomycin for outpatient therapy recommendations once blood culture sensitivities finalize and blood cultures clear. Will likely need 6 weeks of antibiotics. Continue to follow blood cultures daily until clear. -continue zosyn, consider narrowing (to possibly ceftriaxone based on wound cultures) once blood proteus sensitivities return. -PICC line has been placed. 2. Osteomyelitis, recurrent, acute, present on admission, active. -patient with previous therapy for osteomyelitis undergoing 6 weeks IV antibiotics. -more recently the patient has been treated with Levaquin and Bactrim under the care of Dr. Wiggins infectious disease at [facility]. -patient has elevated WBCs at 12.5, CRP at 32.3, ESR 57, lactic acid is normal 1.1, procalcitonin is 0.16. -the patient is seen Dr. Mendosa who was evaluated is consulting, we appreciate Dr. Mendosa's evaluation, treatment and recommendations. -the patient has been started on vancomycin and Zosyn per orthopedics. -PICC line has been placed. 3. Chronic diabetic foot ulcer, present on admission, active. -patient with chronic wound plantar surface left foot for over 5 years, undergone skin grafting, wound VAC with reduction in wound size. -today wound is cellulitic in appearance with redness warmth, elevated white count, wound measures 4 cm x 3.5 cm. -the patient is followed by Dr. Jiménez at the wound care clinic, and referred to Dr. Mendosa for evaluation. -ongoing wound care at the direction of Dr. Mendosa. 4. Diabetes type 2, chronic insulin-dependent uncontrolled, present on admission, active. -patient is homeless and has irregular nutritional status taking Lantus and metformin. Patient does not regularly check his blood sugars. -blood sugar on admission is 422 without evidence of acidosis or ketosis. Patient's last hemoglobin A1c was on February 24, 2019 and found to be 12.0. -patient received 10 units of regular insulin IV in the emergency department with minimal drop in glucose to 398 upon arrival to the floor. -patient also received adequate IVF in the ED. Can discontinue fluids now. -fingerstick glucose checks AC and HS. -will hold metformin and continued the patient's home regimen of Lantus 45 units BID however glucose remains uncontrolled, will increase to 50 units BID -ordered correctional insulin 5. Homelessness, chronic, active. -patient's care is complicated by homelessness, unstable diet leading to uncontrolled diabetes complicating infection. -patient has been compliant with follow-up appointments and treatments. -patient will be needing 6 weeks of IV antibiotics for osteomyelitis and MRSA/proteus bacteremia. -consult [employer] for community resources and discharge planning. 6. Chronic obstructive pulmonary disease, present on admission, stable. -patient with restrictive lung disease by history. -respiratory therapy to consult evaluate and treat. -albuterol nebulizer every 2 hours as needed. -supplemental oxygen as needed to keep oxygen saturation greater than 90% 7. Current every day smoker, present on admission, active. -patient continues to smoke 3-4 cigarettes per day states he is attempting to quit. -ordered nicotine patch 14 mg topically daily. VTE prophylaxis: Lovenox daily. Diet: Constant carbohydrate, small. Dispo: Pending clearing of blood cultures and final sensitivities. Coordinating outpatient IV antibiotics will be difficult given complex social circumstances in this patient.
--- NOTE | 2019-03-31 11:58 | CM.DPNOTE ---
DCP Cont Met w/pt this morning, reminded pt of REFERRAL CLERK role here at , according to our conversation: Pt continues to live in his truck and stores all of his items there. He has food stamps and denies a problem w/access to food. Pt sleeps in a garage at night, details are not disclosed to this REFERRAL CLERK, pt states he can sleep in this garage all winter. Pt is aware of the motel voucher/residential program in [place], understands it's on a first come first serve basis and he explains he has not used because I should not have any preference over others. Pt knows where to line up for application for this program. This REFERRAL CLERK reviews information on chart from last admission, that he has a phone, which pt confirms is working well, and that application has been submitted again to [facility], pt confirms and states he still needs to schedule a functional assessment. This REFERRAL CLERK offered assist w/this coordination and pt appreciative. Then discussed the likelihood that pt would continue to need IV abx and he requested that this be done as an outpt as he has been doing, pt states he has kept every appt. This REFERRAL CLERK asked if pt would consider going to a facility for his IV abx in case the dosing is multiple times daily? Pt explains it is unlikely this will work because he does not want to loose his truck. The only thing pt requests from this REFERRAL CLERK today is to communicate w/[facility], he denies other needs. Placed call to [facility] and was transferred to the / that is assigned to pt, Abdulaziz Mcnair# [phone], left detailed message and requested a functional assessment be completed while pt admitted at . Following closely for coordination of DCP. Upon DC, pt will likely be the most successful in medical compliance if outpt infusion services at are resumed ANGIE Cantu
--- NOTE | 2019-03-31 14:00 | CM.DPNOTE ---
DCP Cont Spoke to Abdulaziz at [facility]; he will staff case w/[employer] and with Claritza Reed CM RN at [facility] and Claritza will be in touch w/this DC Planning team re: functional assessment at [facility]
--- NOTE | 2019-03-31 14:07 | PC.NURSE ---
Patient with SCOUTS showering at this time. No complaints this morning, although he does state he is feeling restless from being in the hospital now. Denies pain, denies n/v, fevers or chills. PICC line to JAISON remains in place with dressing intact. Patient requested his PIV to right wrist be removed. Plan for dressing change once patient is done bathing. Urinal remains within reach and patient uses independently. Call light within reach for safety.
[2019-03-31] MEDS: ACETAMINOPHEN 325 MG TABLET 650 MG PO (15:39)
[2019-03-31] MEDS: ALBUTEROL 2.5 MG/3 ML NEB (ADULT) INH (16:49)
[2019-03-31] MEDS: INSULIN GLARGINE 100 UNIT/ML 3ML PEN 50 UNIT SUBCUT (22:04)
[2019-04-01 01:45] VITALS: BP 122/69; PULSE 87; RESP 20; TEMP 36.8; O2SAT 96
[2019-04-01] MEDS: SODIUM CHLORIDE 0.9% FLUSH 10 ML IV ×3 (02:03→20:47)
[2019-04-01] MEDS: SODIUM CHLORIDE 0.9% 250 ML 21 ML IV (02:03)
[2019-04-01] MEDS: PIPERACILLIN-TAZO 3.375 GM/50 ML FROZ.PIGGY IV ×2 (02:03→09:45)
--- NOTE | 2019-04-01 02:21 | PC.NURSE ---
Patient alert and oriented with gruff sounding voice. Currently cooperative/polite but has had previous episodes where he becomes irritable and uses profanity. Breath sounds diminished but CTA with RA sat of 96%. HRR. Denies nausea. BT present but has had no BM since 03/28. Voiding per urinal; denies dysuria, frequency or urgency. Moving himself in bed. Not OOB this shift so gait/transfer not assessed but patient states he is unable to walk as any weight on left foot causes pain. Dressing to left foot is CDI. Chronic bilateral LE neuropathy unchanged. Denies pain at this time. Continues on contact isolation for MRSA in blood cultures. Fall risk score is high and bed alarm is activated.
[2019-04-01] MEDS: VANCOMYCIN 1,000 MG/200 ML PIGGYBACK 200 MG IV ×2 (02:53→10:19)
[2019-04-01 04:27] LABS: Add Manual Diff / Slide Review NO; Basophils Absolute Auto 0 /uL (0-100); Basophils Percent Auto 0.6 % (0-2); Eosinophils Absolute Auto 200 /uL (0-450); Eosinophils Percent Auto 3.2 % (2-4); Hematocrit 37.3 % (41-53); Hemoglobin 12.6 g/dL (13.5-17.5); Lymphocytes Absolute Auto 1100 /uL (1100-4500); Lymphocytes Percent Auto 15.1 % (25-40); Mean Corpuscular HGB Conc 33.8 % (30-36); Mean Corpuscular Hemoglobin 28.4 PG (26-34); Mean Corpuscular Volume 84.1 fL (80-100); Monocytes Absolute Auto 700 /uL (0-900); Monocytes Percent Auto 9.3 % (3-14); Neutrophils Absolute Auto 5400 /uL (1500-7000); Neutrophils Percent Auto 71.8 % (50-75); Platelet Count 242 X10^3/uL (150-400); Red Blood Cell Count 4.44 X10^6/uL (4.5-5.9); Red Cell Distribution Width 16.1 % (11.6-14.8); White Blood Cell Count 7.5 X10^3/uL (4.5-11.0)
[2019-04-01 04:35] LABS: BUN Creatinine Ratio 18.6 (6-22); Blood Urea Nitrogen 13 mg/dL (9-20); Calcium 8.5 mg/dL (8.4-10.2); Carbon Dioxide 27 mmol/L (22-32); Chloride 102 mmol/L (98-107); Estimated Glomerular Filt Rate > 60.0 mL/min (>60); Glucose 161 mg/dL (70-100); HEMOLYSIS 18 (0-50); Potassium 3.3 mmol/L (3.4-5.1); Sodium 137 mmol/L (137-145)
[2019-04-01] MEDS: POTASSIUM CHLORIDE 20 MEQ TAB 40 MEQ PO (05:52)
[2019-04-01 05:58] VITALS: BP 122/61; PULSE 90; RESP 23; TEMP 36.9; O2SAT 96
--- NOTE | 2019-04-01 07:54 | PM.PN.1 ---
Subjective Subjective Date Patient Seen: 04/01/19 Time Patient Seen: 07:54 Interval history: Left foot osteomyelitis chronic ulceration. Patient has a bacteremia with the IV antibiotics. Redness is improving. I area over the 1st metatarsal does look like it is now organized into a fluctuant abscess and there's fluctuance on exam this morning this area is lanced at bedside drain with purulence anterior of the abscess cavity this is cleaned and packed at bedside. The other chronic ulceration is packed with a wet-to-dry dressing. Patient tolerated the procedure well. Continue IV antibiotics for treatment. Will continue daily wet-to-dry dressing changes. Will resume care with the wound care clinic upon discharge. Exam Vital Signs (past 8 hours): - 04/01/19 01:45 04/01/19 05:58 Temperature 98.3 F 98.5 F Pulse Rate 87 90 Respiratory Rate 20 23 Blood Pressure 122/69 122/61 Pulse Oximetry 96 96 Oxygen Delivery Method Room Air Oxygen Flow Rate 0 Narrative Exam Narrative: Patient is comfortable lying in bed. Dressing taken down wound inspected today. Medial ulceration granulating well there is small area the very inferior aspect of the wound that does have some bone exposed in a month and redness exudate. More concerning is dorsally over the 1st metatarsal a separate from the chronic wound is a area that was cellulitis earlier in the week but now appears to organized into a abscess. This is fluctuant this morning. With the patient's permission this was opened at bedside. Gross purulence material was expressed and this was thoroughly drained cleansed and packed with wet-to-dry gauze. The chronic wound was also placed with a wet-to-dry dressing. No other areas of fluctuance were noted. No ascending erythema. Overall the patient's cellulitis demarcation is a reduced from his presentation to the ER. Objective Labs Result Diagrams: 04/01/19 04:00 04/01/19 04:00 Labs: Laboratory Results - last 24 hr 03/29/19 03/30/19 04/01/19 11:35 11:35 04:00 WBC 7.5 RBC 4.44 L Hgb 12.6 L Hct 37.3 L MCV 84.1 MCH 28.4 MCHC 33.8 RDW 16.1 H Plt Count 242 Neut % (Auto) 71.8 Lymph % (Auto) 15.1 L [place] % (Auto) 9.3 Eos % (Auto) 3.2 Baso % (Auto) 0.6 Neut # (Auto) 5400 Lymph # (Auto) 1100 [place] # (Auto) 700 Eos # (Auto) 200 Baso # (Auto) 0 Sodium Potassium Chloride Carbon Dioxide BUN Creatinine Estimated GFR BUN/Creatinine Ratio Glucose Lactate 1.1 Calcium Magnesium A. baumannii (PCR) Not detected Dotty albicans (PCR) Not detected C. glabrata (PCR) Not detected C. krusei (PCR) Not detected C. parapsilosis (PCR) Not detected C. tropicalis (PCR) Not detected Enterobacteriac sp PCR Not detected E. cloacae complex PCR Not detected Enterococcus sp PCR Not detected E. coli (PCR) Not detected H. influenzae (PCR) Not detected Klebsiella oxytoca PCR Not detected Klebsiella pneumoniae Not detected List. monocytogenes PCR Not detected N. meningitidis (PCR) Not detected Proteus species (PCR) Not detected Serratia marcescens PCR Not detected Staphylococcus sp PCR Detected H Staph aureus (PCR) Detected H mecA-Methicil Res Gene Detected H Streptococcus sp PCR Not detected Group A Strep (PCR) Not detected Strep agalactiae (PCR) Not detected Strep pneumoniae (PCR) Not detected P. aeruginosa (PCR) Not detected 04/01/19 04:00 WBC RBC Hgb Hct MCV MCH MCHC RDW Plt Count Neut % (Auto) Lymph % (Auto) [place] % (Auto) Eos % (Auto) Baso % (Auto) Neut # (Auto) Lymph # (Auto) [place] # (Auto) Eos # (Auto) Baso # (Auto) Sodium 137 Potassium 3.3 L Chloride 102 Carbon Dioxide 27 BUN 13 Creatinine 0.70 Estimated GFR > 60.0 BUN/Creatinine Ratio 18.6 Glucose 161 H Lactate Calcium 8.5 Magnesium 2.0 A. baumannii (PCR) Dotty albicans (PCR) C. glabrata (PCR) C. krusei (PCR) C. parapsilosis (PCR) C. tropicalis (PCR) Enterobacteriac sp PCR E. cloacae complex PCR Enterococcus sp PCR E. coli (PCR) H. influenzae (PCR) Klebsiella oxytoca PCR Klebsiella pneumoniae List. monocytogenes PCR N. meningitidis (PCR) Proteus species (PCR) Serratia marcescens PCR Staphylococcus sp PCR Staph aureus (PCR) mecA-Methicil Res Gene Streptococcus sp PCR Group A Strep (PCR) Strep agalactiae (PCR) Strep pneumoniae (PCR) P. aeruginosa (PCR) Assessment & Plan Assessment & Plan narrative: 1. Regarding the patient's left foot osteomyelitis chronic diabetic, Charcot ulceration. Remain on IV antibiotics for this as well as his bacteremia per Internal Medicine team. I do encourage consultation with the patient's infectious disease doctor--Dr. Wiggins at [facility] to help with outpatient management. Due to the patient's social conditions he has a history of being very adverse distance placement and if daily dosing at the infusion center is available this has been done successfully for him in the past. And would likely be optimal. Additionally on discharge the patient will need to have a wound care consult with wound care coming back in to help him. He has been getting negative pressure wound therapy with wound clinic. He does have his portable VAC with him so that at the time of discharge this can be replaced and then he can reestablish care with them for his routine VAC changes. As far as the dorsal abscess over the 1st metatarsal this should be packed with straight wet to dry gauze for now. Time Spent With Patient Time with patient: 15-24 minutes
[2019-04-01 08:00] VITALS: BP 119/71; PULSE 84; RESP 24; TEMP 36.6; O2SAT 96
[2019-04-01] MEDS: ENOXAPARIN 40 MG/0.4 ML SYRINGE SUBCUT (09:33)
[2019-04-01] MEDS: INSULIN GLARGINE 100 UNIT/ML 3ML PEN 50 UNIT SUBCUT ×2 (09:34→20:50)
[2019-04-01] MEDS: INSULIN ASPART 100 UNIT/ML INSULN PEN SUBCUT ×4 (09:36→20:54)
[2019-04-01] MEDS: NICOTINE 14 PATCH 14 MG TOP (09:38)
[2019-04-01] MEDS: FLUTICASONE 120 SPRAY/16 GM SPRAY.SUSP NASAL ×2 (09:38→20:47)
--- NOTE | 2019-04-01 11:47 | DI.ECHO.S_ITS ---
[facility]---------+ [facility] +---------+ : : [address] : : : : [id number] : : : : Phone: [phone]+ Echocardiogram Report + + :Name: ALETHEA AKINS Study Date: 04/01/2019 Height: 71 in : :[facility] Weight: 250 lb : : Gender: Male BSA: 2.3 m2 : :: 1960 Age: 58 yrs BP: 122/88 mmHg: :Reason For Study: Bacteremia : :Ordering Physician: Sumaya : :Hospitalist Performed By: Charu Page : :Referring: CARMENZA POSADAS : + + Interpretation Summary The left ventricle is normal in size. Left ventricular systolic function is normal. The ejection fraction is estimated to be 55-60%. LVEF has not significantly decreased since prior study. There is mid anteroseptal wall severe hypokinesis. There is apical septal wall severe hypokinesis. These are new LV wall motion abnormalities. Diastolic parameters suggest a relaxation abnormality of the left ventricle, consistent with probable normal filling pressures. The right ventricle is normal in size and function. Pulmonary artery pressures cannot be estimated because of the lack of a measurable TR jet velocity. The left atrium is severely dilated. The right atrium is moderately dilated. The ascending aorta is mildly enlarged. There are no obvious medium to large size vegetative masses on today's surface echocardiogram. If highly suspicious for endocarditis then consider DEMAR. Procedure: A two-dimensional transthoracic echocardiogram with color flow and Doppler was performed. The study quality was technically adequate. Comparison is made with the echocardiogram of 08/22/2016. The heart rate ranged between 68-86 bpm during the study. Left Ventricle: The left ventricle is normal in size. There is normal left ventricular wall thickness. There is no thrombus. Left ventricular systolic function is normal. The ejection fraction is estimated to be 55-60%. There is mid anteroseptal wall severe hypokinesis. There is apical septal wall severe hypokinesis. Diastolic parameters suggest a relaxation abnormality of the left ventricle, consistent with probable normal filling pressures. Right Ventricle: The right ventricle is normal in size and function. Atria: The left atrium is severely dilated. The right atrium is moderately dilated. There is no Doppler evidence for an interatrial shunt. Mitral Valve: The mitral valve is normal in structure and function. There is no obvious vegetation seen on the mitral valve. There is trace mitral regurgitation. Aortic Valve: The aortic valve is trileaflet. The aortic valve opens well. There is no aortic valvular vegetation. No aortic regurgitation is present. Tricuspid Valve: The tricuspid valve is normal in structure and function. There is no obvious tricuspid valve vegetation. There is a trace or physiologic amount of tricuspid regurgitation. Pulmonary artery pressures cannot be estimated because of the lack of a measurable TR jet velocity. Pulmonic Valve: The pulmonic valve is not well seen, but is grossly normal. There is no obvious vegetation on the pulmonic valve. There is trace pulmonic regurgitation. Great Vessels: The aortic root is normal size. The ascending aorta is mildly enlarged. The pulmonary artery is not well visualized, but is probably normal size. The IVC is of normal diameter and collapses greater than 50% with a sniff. This suggests a low right atrial pressure of 3 mm Hg. Pericardium/ Pleura There is no pericardial effusion. There is no pleural effusion. MMode/2D Measurements & Calculations LVIDd: 4.9 cm LVOT diam: 2.3 cm LVIDs: 4.0 cm Ao root diam: 3.9 cm FS: 18.1 % asc Aorta Diam: 3.8 cm EPSS: 0.95 cm Ao Arch Diam (Prox Trans): 3.4 cm IVSd: 0.83 cm LVPWd: 0.82 cm LV granados. diameter/BSA (cm/m^2): 2.1 LV sys. diameter/BSA (cm/m^2): 1.7 LA A2 area: 27.3 cm2 RA long axis: 5.4 cm LA A4 area: 26.4 cm2 RA area: 25.3 cm2 LA length (vol): 6.3 cm RA vol: 100.7 ml LA vol: 96.4 ml RA : 43.4 ml/m2 LA vol index: 41.6 ml/m2 IVC diam: 2.2 cm RVD1 (basal): 4.0 cm LVAd ap4: 44.0 cm2 TAPSE: 2.5 cm Doppler Measurements & Calculations Ao V2 max: 131.1 cm/sec LVOT Max Sloan: 106.1 cm/sec Ao V2 mean: 85.9 cm/sec LV V1 max P.5 mmHg Ao max P.9 mmHg LV V1 VTI: 21.4 cm Ao mean P.5 mmHg RADHA(I,D): 3.2 cm2 Ao V2 VTI: 26.4 cm RADHA(V,D): 3.2 cm2 sev ratio: 0.81 RADHA indexed to BSA (cm^2/m^2): 1.4 MV E max sloan: 73.4 cm/sec PA V2 max: 82.8 cm/sec MV A max sloan: 85.3 cm/sec PA V2 mean: 55.7 cm/sec MV E/A: 0.86 PA mean P.4 mmHg Med Peak E' Sloan: 8.3 cm/sec PA Accel Time: 0.11 sec E/E' med: 8.8 Lat Peak E' Sloan: 9.8 cm/sec E/E' lat: 7.5 E/e' average: 8.2 MV P1/2t: 42.7 msec MV P1/2t max sloan: 73.7 cm/sec SV(LVOT): 85.7 ml MVA(P1/2t): 5.2 cm2 Reading Physician:03:22 PM
[2019-04-01 12:00] VITALS: BP 110/66; PULSE 81; RESP 24; TEMP 36.3; O2SAT 97
--- NOTE | 2019-04-01 13:24 | P.PN_ITS ---
Subjective Subjective Date Patient Seen: 04/01/19 Time Patient Seen: 13:26 Interval history: Mr. David Givens is a 50-year-old male patient with history significant for chronic diabetic ulcer left foot, chronic osteomyelitis, diabetes type 2 with polyneuropathy and COPD with restrictive lung disease who was sent to the ER by Dr. Mendosa for concerns of osteomyelitis. The patient has no complaints today, and denies pain, fever, chills, rash, nausea, vomiting. His blood cultures were positive for MRSA and Proteus. First negative blood culture is 03/31. I discussed the case with Dr. Rosalie Nieves, his infectious disease doctor at [facility]. She is in agreement given the patient's complex social situation that the ideal regimen for him will be daptomycin every 24 hours and ceftriaxone every 24 hours for 6 weeks. She further recommended an echocardiogram today for the MRSA bacteremia. She additionally recommended that the patient may need to have an amputation in order to ultimately control this infection. She recommended weekly CBC, CMP, and CK for follow-up while on IV antibiotics as well as follow-up in her clinic as well. Dr. Weems performed a bedside drainage of a small purulence collection today. Given his complex also situation, am hoping for possible discharge tomorrow with plan for outpatient antibiotics to start on Thursday. Exam Vital Signs (past 8 hours): - 04/01/19 05:58 04/01/19 08:00 04/01/19 12:00 Temperature 98.5 F 97.9 F 97.3 F L Pulse Rate 90 84 81 Respiratory Rate 23 24 24 Blood Pressure 122/61 119/71 110/66 Pulse Oximetry 96 96 97 Oxygen Delivery Method Room Air Oxygen Flow Rate 0 Narrative Exam Narrative: GENERAL APPEARANCE: well developed, unkempt, disheveled, obese, in no acute distress. HEENT: Normocephalic, PERRLA, conjunctiva clear, EOMs intact without nystagmus, no sinus tenderness to percussion, no rhinorrhea, mucous membranes are moist and pink without lesions or exudate. NECK/THYROID: neck supple, no JVD, no thyromegaly, trachea midline. LYMPH NODES: no cervical or supraclavicular lymphadenopathy. SKIN: [place], warm and dry, skin left foot dry with scaling. previously marked area without erythema or induration. HEART: regular rate and rhythm, S1-S2, no murmur appreciated, no rubs or ga llops, brisk capillary refill, no edema LUNGS: clear but diminished on auscultation bilaterally, no coarseness crackles or wheezing, no cough present CHEST: Symmetrical movement, no accessory muscle use, good tidal volume. ABDOMEN: Soft, no distention, no abdominal tenderness, no guarding or perito ashley signs, no organomegaly, no flank tenderness, active bowel tones. BACK: Normal curvature, nontender to palpation, no CVA tenderness on percussion EXTREMITIES: Left Charcot foot, Micheal wrap appears clear trend intact. Moves all extremities, strength is 5/5 and symmetrical, no deformities or joint effusions. NEUROLOGIC: AAO x4, cranial nerves II-XII grossly intact, dense neuropathy left foot with decreased sensation up to the level of the tibial tubercle. PSYCH: Cooperative, appropriate with stable behavior Objective Labs Result Diagrams: 04/01/19 04:00 04/01/19 04:00 Labs: Laboratory Results - last 24 hr 03/29/19 03/30/19 04/01/19 11:35 11:35 04:00 WBC 7.5 RBC 4.44 L Hgb 12.6 L Hct 37.3 L MCV 84.1 MCH 28.4 MCHC 33.8 RDW 16.1 H Plt Count 242 Neut % (Auto) 71.8 Lymph % (Auto) 15.1 L Sebastian % (Auto) 9.3 Eos % (Auto) 3.2 Baso % (Auto) 0.6 Neut # (Auto) 5400 Lymph # (Auto) 1100 Sebastian # (Auto) 700 Eos # (Auto) 200 Baso # (Auto) 0 Sodium Potassium Chloride Carbon Dioxide BUN Creatinine Estimated GFR BUN/Creatinine Ratio Glucose Lactate 1.1 Calcium Magnesium A. baumannii (PCR) Not detected Dotty albicans (PCR) Not detected C. glabrata (PCR) Not detected C. krusei (PCR) Not detected C. parapsilosis (PCR) Not detected C. tropicalis (PCR) Not detected Enterobacteriac sp PCR Not detected E. cloacae complex PCR Not detected Enterococcus sp PCR Not detected E. coli (PCR) Not detected H. influenzae (PCR) Not detected Klebsiella oxytoca PCR Not detected Klebsiella pneumoniae Not detected List. monocytogenes PCR Not detected N. meningitidis (PCR) Not detected Proteus species (PCR) Not detected Serratia marcescens PCR Not detected Staphylococcus sp PCR Detected H Staph aureus (PCR) Detected H mecA-Methicil Res Gene Detected H Streptococcus sp PCR Not detected Group A Strep (PCR) Not detected Strep agalactiae (PCR) Not detected Strep pneumoniae (PCR) Not detected P. aeruginosa (PCR) Not detected 04/01/19 04:00 WBC RBC Hgb Hct MCV MCH MCHC RDW Plt Count Neut % (Auto) Lymph % (Auto) Sebastian % (Auto) Eos % (Auto) Baso % (Auto) Neut # (Auto) Lymph # (Auto) Sebastian # (Auto) Eos # (Auto) Baso # (Auto) Sodium 137 Potassium 3.3 L Chloride 102 Carbon Dioxide 27 BUN 13 Creatinine 0.70 Estimated GFR > 60.0 BUN/Creatinine Ratio 18.6 Glucose 161 H Lactate Calcium 8.5 Magnesium 2.0 A. baumannii (PCR) Dotty albicans (PCR) C. glabrata (PCR) C. krusei (PCR) C. parapsilosis (PCR) C. tropicalis (PCR) Enterobacteriac sp PCR E. cloacae complex PCR Enterococcus sp PCR E. coli (PCR) H. influenzae (PCR) Klebsiella oxytoca PCR Klebsiella pneumoniae List. monocytogenes PCR N. meningitidis (PCR) Proteus species (PCR) Serratia marcescens PCR Staphylococcus sp PCR Staph aureus (PCR) mecA-Methicil Res Gene Streptococcus sp PCR Group A Strep (PCR) Strep agalactiae (PCR) Strep pneumoniae (PCR) P. aeruginosa (PCR) Assessment & Plan Assessment & Plan narrative: David Givens is a 50-year-old male patient with history significant for chronic diabetic ulcer left foot, chronic osteomyelitis, diabetes type 2 with polyneuropathy and COPD with restrictive lung disease who was sent to the ER by Dr. Mendosa for concerns of osteomyelitis, blood cultures drawn were positive for MRSA bacteremia, and a proteus sp. is now growing from . MRSA and proteus bacteremia, acute, present on admission -source is likely his chronic lower extremity wound and osteomyelitis given previous cultures showing MRSA and proteus. He has no other evidence on exam of endocarditis. -discussed the case with his outpatient infectious disease provider Dr. Rosalie Nieves at [facility]. She recommended 6 weeks of IV daptomycin, 900 every 24 hours, and 2 g ceftriaxone every 24 hours. Will work to arrange outpatient therapy as he will need to continue antibiotic therapy until 05/12/2019. She further recommended possible amputation, to be discussed in the outpatient setting. He will need follow-up with orthopedics and Infectious Disease upon discharge. -I have changed his inpatient regimen today to ceftriaxone 2 g Q 24, and daptomycin 900 Q 24 as well -PICC line has been placed. - TTE pending -he will need weekly monitoring of a CBC, CMP, CRP, and CK as an outpatient. 2. Osteomyelitis, recurrent, acute, present on admission, active. -patient with previous therapy for osteomyelitis undergoing 6 weeks IV antibiotics. -more recently the patient has been treated with Levaquin and Bactrim under the care of Dr. Wiggins infectious disease at [facility]. -patient has elevated WBCs at 12.5, CRP at 32.3, ESR 57, lactic acid is normal 1.1, procalcitonin is 0.16. -the patient is seen Dr. Mendosa who was evaluated is consulting, we appreciate Dr. Mendosa's evaluation, treatment and recommendations. -the patient has was started on Zosyn and Vanco, transitioned to ceftriaxone and daptomycin today as noted above. -PICC line has been placed. 3. Chronic diabetic foot ulcer, present on admission, active. -patient with chronic wound plantar surface left foot for over 5 years, undergone skin grafting, wound VAC with reduction in wound size. -the patient is followed by Dr. Jiménez at the wound care clinic, and referred to Dr. Mendosa for evaluation. -ongoing wound care at the direction of Dr. Mendosa. Please see her most recent note for outpatient recommendations. He will need a referral back to wound care upon discharge. 4. Diabetes type 2, chronic insulin-dependent uncontrolled, present on admission, active. -patient is homeless and has irregular nutritional status taking Lantus and metformin. Patient does not regularly check his blood sugars. -blood sugar on admission is 422 without evidence of acidosis or ketosis. Patient's last hemoglobin A1c was on February 24, 2019 and found to be 12.0. -patient received 10 units of regular insulin IV in the emergency department with minimal drop in glucose to 398 upon arrival to the floor. -patient also received adequate IVF in the ED. Can discontinue fluids now. -fingerstick glucose checks AC and HS. -will hold metformin. Patient had inadequate control on Lantus 45 units BID, this has improved today with increase to 50 units BID. -ordered correctional insulin 5. Homelessness, chronic, active. -patient's care is complicated by homelessness, unstable diet leading to uncon trolled diabetes complicating infection. -patient has been compliant with follow-up appointments and treatments. -patient will be needing 6 weeks of IV antibiotics for osteomyelitis and MRSA/proteus bacteremia. -consult [employer]INEER for community resources and discharge planning. 6. Chronic obstructive pulmonary disease, present on admission, stable. -patient with restrictive lung disease by history. -respiratory therapy to consult evaluate and treat. -albuterol nebulizer every 2 hours as needed. -supplemental oxygen as needed to keep oxygen saturation greater than 90% 7. Current every day smoker, present on admission, active. -patient continues to smoke 3-4 cigarettes per day states he is attempting to quit. -ordered nicotine patch 14 mg topically daily. VTE prophylaxis: Lovenox daily. Diet: Constant carbohydrate, small. Dispo: Will plan on discharge tomorrow if there are no additional complications to give time to arrange outpatient antibiotic therapy given his complex social circumstances, and to ensure that his blood culture from 03/31 remains negative. He will also need to set up a follow-up with his infectious disease provider and Orthopedics.
[2019-04-01] MEDS: diphenhydrAMINE 25 MG TABLET PO (13:28)
[2019-04-01] MEDS: CEFTRIAXONE 2 GM/50 ML FROZ.PIGGY IV (14:16)
--- NOTE | 2019-04-01 14:40 | PC.NURSE ---
Nurse Note Patient alert and oriented this shift. Dressing to right knee changed by physician. Dressing to PICC insertion site completed without incident. Patient continues to refuse SCDs. Care is ongoing.
[2019-04-01 15:32] VITALS: BP 126/86; PULSE 82; RESP 20; TEMP 36.6; O2SAT 97
--- NOTE | 2019-04-01 15:37 | CM.DPNOTE ---
DCP Cont Spoke w/Dr Benson today re: pt's DCP. Dr Benson expects that pt will be medically stable to DC Thursday and he can complete outpt infusion of IV Dapto and IV Ceftriaxone Q24 though our infusion/cancer care center (as pt has done in the past). This SERGER and Bottom Cementer Earnestine spoke w/RN Coordinator Magdalena who explained that once an order was in place for outpt infusion ie drug, dose, duration etc pt could be arranged for outpt infusion to begin Thursday if needed. This SERGER following closely for coordination of DCP, DC expected Thursday home to truck w/outpt infusion services through to begin Thursday (Q24 dose x6 weeks) JW
[2019-04-01 19:41] VITALS: BP 160/90; PULSE 88; RESP 20; TEMP 36.7; O2SAT 94
[2019-04-01] MEDS: NYSTATIN OINTMENT 15 APPLIC/TUBE OINT...G. TOP (20:58)
--- NOTE | 2019-04-01 22:53 | PC.NURSE ---
Assumed care of pt at 1500. Pt sleeping during bedside hand-off. Awakens for dinner. Denies pain. Micheal wrap to L foot c/d/i. Drsg changed per MD order this evening by student nurse and this aligner typewriter. Pt states he has a rash to nunu/groin area but refused to allow staff to assess; pt applied nystatin to the area during HS medication administration. Cooperative with care and pleasant this shift.
[2019-04-02 00:30] VITALS: BP 126/72; PULSE 81; RESP 16; TEMP 36.6; O2SAT 96
[2019-04-02 04:55] VITALS: BP 119/73; PULSE 85; RESP 16; TEMP 36.5; O2SAT 94
[2019-04-02 05:18] LABS: Add Manual Diff / Slide Review NO; Basophils Absolute Auto 0 /uL (0-100); Basophils Percent Auto 0.6 % (0-2); Eosinophils Absolute Auto 300 /uL (0-450); Eosinophils Percent Auto 4.2 % (2-4); Hematocrit 39.6 % (41-53); Hemoglobin 13.2 g/dL (13.5-17.5); Lymphocytes Absolute Auto 1600 /uL (1100-4500); Lymphocytes Percent Auto 20.2 % (25-40); Mean Corpuscular HGB Conc 33.2 % (30-36); Mean Corpuscular Hemoglobin 28.2 PG (26-34); Mean Corpuscular Volume 85.1 fL (80-100); Monocytes Absolute Auto 900 /uL (0-900); Monocytes Percent Auto 12.1 % (3-14); Neutrophils Absolute Auto 4900 /uL (1500-7000); Neutrophils Percent Auto 62.9 % (50-75); Platelet Count 255 X10^3/uL (150-400); Red Blood Cell Count 4.66 X10^6/uL (4.5-5.9); Red Cell Distribution Width 15.8 % (11.6-14.8); White Blood Cell Count 7.8 X10^3/uL (4.5-11.0)
[2019-04-02] MEDS: SODIUM CHLORIDE 0.9% FLUSH 10 ML IV ×2 (05:24→11:26)
[2019-04-02 05:36] LABS: BUN Creatinine Ratio 26.7 (6-22); Blood Urea Nitrogen 16 mg/dL (9-20); Calcium 8.8 mg/dL (8.4-10.2); Carbon Dioxide 27 mmol/L (22-32); Chloride 101 mmol/L (98-107); Estimated Glomerular Filt Rate > 60.0 mL/min (>60); Glucose 198 mg/dL (70-100); HEMOLYSIS 27 (0-50); Magnesium 2.1 mg/dL (1.6-2.3); Potassium 3.8 mmol/L (3.4-5.1); Sodium 136 mmol/L (137-145)
[2019-04-02 08:00] VITALS: BP 130/85; PULSE 91; RESP 16; TEMP 36.7; O2SAT 97
--- NOTE | 2019-04-02 10:49 | P.DS_ITS ---
History of Present Illness History of Present Illness Date Patient Seen: 04/02/19 Time Patient Seen: 10:49 Chief complaint: sent from wound care for antibiotics Narrative: As per ROCÍO Laureano: Mr. David Givens is a 50-year-old male patient with history significant for chronic diabetic ulcer left foot, chronic osteomyelitis, diabetes type 2 with polyneuropathy and COPD with restrictive lung disease who was sent to the ER by Dr. Mendosa for concerns of osteomyelitis. Patient has had a chronic wound on the plantar surface of his left foot for 5 years. His undergone prior skin grafting. He has also undergone wound VAC therapy as well as prior IV antibiotic therapy for osteomyelitis. [facility] where he was seen yesterday with findings of increased cellulitis and a culture and biopsy were taken. The culture taken 03/28/2019 shows light growth of Staph aureus, sensitivities to be identified. Patient has previously been on levofloxacin and Bactrim per Dr. Chapa infectious diseases [facility]. The patient's cares complicated by the fact that he is homeless living in his truck but he has been compliant with making his appointments. Uses a wheelchair for mobility and minimize weight-bearing on his left foot. The patient denies pain and has dense neuropathy of the feet extending to just distal to the knee. The patient reports no systemic symptoms with no fevers or chills, no headaches or dizziness. He does indicate that he has had recent nasal congestion and sore throat. He denies chest pain or palpitations has no shortness of breath cough or wheezing. He does use albuterol inhaler. He denies abdominal pain, heartburn, nausea or vomiting. Reports no changes in urination or bowel habits. Upon arrival to the emergency department the patient was hypothermic with a temperature 95.9?. Tachycardic 117, blood pressure 124/100 respirations 16 saturating 90% on room air. An x-ray of the left foot was obtained finding Charcot joint, acute osteomyelitis. A CT of the foot is obtained and found no acute abscess, deep ulcer of the medial plantar surface of the 1st metatarsal, sclerotic joint of the 1st metatarsal concerning for osteomyelitis, severe neuropathic arthropathy and osteopenia. Labs are assessed finding elevated white count at 12.5 (yesterday was 11.9), hemoglobin of 14.6, hematocrit of 43.5, platelets 241. On chemistry sodium is 134 with a potassium of 4.0 when chloride 96 and CO of 20. BUN is 18 and creatinine is 0.7. Blood sugars noted to be 422. Procalcitonin is 0.16, lactic acid is 1.1. CRP is elevated over labs yesterday a CRP of 32.3, ESR is also elevated over yesterday and today is 57. Urinalysis is negative except for 3+ glucose. In the ER the patient received 10 units of insulin IV and [address] Mendosa is consulting and medicine is admitting for management of nonketotic hyperglycemia. Discharge Providers Provider Date of admission: 03/29/19 15:13 Discharge Date: 04/02/19 Primary care physician: Madeline Morales DO Consults: 03/29/19 14:53 Consult to Orthopedic Surgery Stat Comment: Consulting Provider: Radha Mendosa Reason for consultation: Osteomyelitis 03/29/19 21:44 Consult to Respiratory Therapy Evaluate & Treat Comment: COPD, Restrictive lung disease Physician Instructions: Evaluate and treat 03/30/19 03:36 Consult to MORTGAGE LOAN ASSISTANT - Project Production Engineer Routine Comment: Homeless, DM uncontrolled, MRSA, Osteomyolitis MORTGAGE LOAN ASSISTANT Consult: [facility] Res Need Discharge provider: Dejuan Benson DO Summary Hospital Course Discharge Diagnosis: 1. MRSA and proteus bacteremia, acute, present on admission -source is likely his chronic lower extremity wound and osteomyelitis given previous cultures showing MRSA and proteus. He has no other evidence on exam of endocarditis. 2. Osteomyelitis, recurrent, acute, present on admission, active. 3. Chronic diabetic foot ulcer, present on admission, active. 4. Diabetes type 2, chronic insulin-dependent uncontrolled, present on admission, active. 5. Homelessness, chronic, active. 6. Chronic obstructive pulmonary disease, present on admission, stable. 7. Current every day smoker, present on admission, active.. Hospital Course: David Givens is a 50-year-old male patient with history significant for chronic diabetic ulcer left foot, chronic osteomyelitis, diabetes type 2 with polyneuropathy and COPD with restrictive lung disease who was sent to the ER by Dr. Mendosa for concerns of osteomyelitis, blood cultures drawn were positive for MRSA bacteremia, and a proteus sp. is now growing from 03/29. 1. MRSA and proteus bacteremia, acute, present on admission -source is likely his chronic lower extremity wound and osteomyelitis given previous cultures showing MRSA and proteus. He has no other evidence on exam of endocarditis. -discussed the case with his outpatient infectious disease provider Dr. Rosalie Nieves at [facility]. She recommended 6 weeks of IV daptomycin, 900 every 24 hours, and 2 g ceftriaxone every 24 hours. Will work to arrange outpatient therapy as he will need to continue antibiotic therapy until 05/12/2019. She further recommended possible amputation, to be discussed in the outpatient setting. He will need follow-up with orthopedics and Infectious Disease upon discharge. -I have changed his inpatient regimen today to ceftriaxone 2 g Q 24, and daptomycin 900 Q 24 as well -PICC line has been placed. - TTE did not show evidence of endocarditis however he did show new wall motion abnormalities which should be followed up with a cardiology appointment as an outpatient. -he will need weekly monitoring of a CBC, CMP, CRP, and CK as an outpatient. 2. Osteomyelitis, recurrent, acute, present on admission, active. -patient with previous therapy for osteomyelitis undergoing 6 weeks IV antibiotics. -more recently the patient has been treated with Levaquin and Bactrim under the care of Dr. Wiggins infectious disease at [facility]. -patient has elevated WBCs at 12.5, CRP at 32.3, ESR 57, lactic acid is normal 1.1, procalcitonin is 0.16. -the patient is seen Dr. Mendosa who was evaluated is consulting, we appreciate Dr. Mendosa's evaluation, treatment and recommendations. -the patient has was started on Zosyn and Vanco, transitioned to ceftriaxone and daptomycin today as noted above. -PICC line has been placed. 3. Chronic diabetic foot ulcer, present on admission, active. -patient with chronic wound plantar surface left foot for over 5 years, undergone skin grafting, wound VAC with reduction in wound size. -the patient is followed by Dr. Jiménez at the wound care clinic, and referred to Dr. Mendosa for evaluation. -ongoing wound care at the direction of Dr. Mendosa. Please see her most recent note for outpatient recommendations. He will need a referral back to wound care upon discharge. 4. Diabetes type 2, chronic insulin-dependent uncontrolled, present on admission, active. -patient is homeless and has irregular nutritional status taking Lantus and metformin. Patient does not regularly check his blood sugars. -blood sugar on admission is 422 without evidence of acidosis or ketosis. Patient's last hemoglobin A1c was on February 24, 2019 and found to be 12.0. -continue home regimen of metformin and Lantus 45 units b.i.d.. 5. Homelessness, chronic, active. -patient's care is complicated by homelessness, unstable diet leading to uncontrolled diabetes complicating infection. -patient has been compliant with follow-up appointments and treatments. -patient will be needing 6 weeks of IV antibiotics for osteomyelitis and MRSA/proteus bacteremia. -appreciates social work consultation and assistance with management 6. Chronic obstructive pulmonary disease, present on admission, stable. -patient was asymptomatic during his hospitalization 7. Current every day smoker, present on admission, active. -patient continues to smoke 3-4 cigarettes per day states he is attempting to quit. -ordered nicotine patch 14 mg topically while inpatient. Exam Vital Signs (past 8 hours): - 04/02/19 04:55 04/02/19 08:00 Temperature 97.7 F 98.1 F Pulse Rate 85 91 H Respiratory Rate 16 16 Blood Pressure 119/73 130/85 Pulse Oximetry 94 97 Oxygen Delivery Method Room Air Oxygen Flow Rate 0 Narrative Exam Narrative: GENERAL APPEARANCE: well developed, unkempt, disheveled, obese, in no acute distress. HEENT: Normocephalic, PERRLA, conjunctiva clear, EOMs intact without nystagmus, no sinus tenderness to percussion, no rhinorrhea, mucous membranes are moist and pink without lesions or exudate. NECK/THYROID: neck supple, no JVD, no thyromegaly, trachea midline. LYMPH NODES: no cervical or supraclavicular lymphadenopathy. SKIN: [place], warm and dry, skin left foot dry with scaling. previously marked area without erythema or induration. HEART: regular rate and rhythm, S1-S2, no murmur appreciated, no rubs or gallops, brisk capillary refill, no edema LUNGS: clear but diminished on auscultation bilaterally, no coarseness crackles or wheezing, no cough present CHEST: Symmetrical movement, no accessory muscle use, good tidal volume. ABDOMEN: Soft, no distention, no abdominal tenderness, no guarding or peritoneal signs, no organomegaly, no flank tenderness, active bowel tones. BACK: Normal curvature, nontender to palpation, no CVA tenderness on percussion EXTREMITIES: Left Charcot foot, Micheal wrap appears clear trend intact. Moves all extremities, strength is 5/5 and symmetrical, no deformities or joint effusions. NEUROLOGIC: AAO x4, cranial nerves II-XII grossly intact, dense neuropathy left foot with decreased sensation up to the level of the tibial tubercle. PSYCH: Cooperative, appropriate with stable behavior Objective Labs Result Diagrams: 04/02/19 05:00 04/02/19 05:00 Labs: Laboratory Results - last 24 hr 04/02/19 04/02/19 05:00 05:00 WBC 7.8 RBC 4.66 Hgb 13.2 L Hct 39.6 L MCV 85.1 MCH 28.2 MCHC 33.2 RDW 15.8 H Plt Count 255 Neut % (Auto) 62.9 Lymph % (Auto) 20.2 L Stanley % (Auto) 12.1 Eos % (Auto) 4.2 H Baso % (Auto) 0.6 Neut # (Auto) 4900 Lymph # (Auto) 1600 Stanley # (Auto) 900 Eos # (Auto) 300 Baso # (Auto) 0 Sodium 136 L Potassium 3.8 Chloride 101 Carbon Dioxide 27 BUN 16 Creatinine 0.60 L Estimated GFR > 60.0 BUN/Creatinine Ratio 26.7 H Glucose 198 H Calcium 8.8 Magnesium 2.1 Discharge Plan Discharge Plan Patient Disposition: Home Discharge comment: Your admitted to the hospital for an infection in your bone. you need 6 weeks of IV antibiotics, which will finish on May 02, 2019. Plea se antibiotics are given once a day and you will need to come to the infusion center for them. Please follow up with wound care and orthopedic surgery as well as your primary care provider. You will need weekly lab draws while on these antibiotics. Discharge orders & Medications Prescriptions: New ceftriaxone in dextrose,iso-os 2 gram/50 mL Piggyback 2 gram IV Q24H 41 Days Qty: 2049 RF: 0 daptomycin 500 mg recon soln 900 mg IV Q24H 41 Days Qty: 41 RF: 0 sodium chloride 0.9 % (flush) [Normal Saline Flush] Syringe 10 ml IV PRN PRN (Reason: Flush) 41 Days Qty: 82 RF: 0 Continued (DME) pen needle, diabetic [Lite Touch Insulin Pen Wallace] 31 gauge x 1/4 needle See Rx Instructions .ROUTE .MEDSUPPLY Qty: 60 RF: 5 fluticasone propionate [Allergy Relief (fluticasone)] 50 mcg/actuation spray,suspension 1 spray NASAL BID Qty: 15.8 RF: 11 metformin 1,000 mg tablet 1,000 mg PO BID Qty: 180 RF: 3 melatonin 10 mg Tablet 10 mg PO BEDTIME PRN (Reason: Insomnia) Qty: 0 RF: 0 albuterol sulfate 90 mcg/actuation HFA aerosol inhaler 1 - 2 puff INHALATION Q4-6H PRN (Reason: shortness of breath or wheezing) RF: 0 Lantus Solostar U-100 Insulin 100 unit/mL (3 mL) insulin pen 40 - 45 unit subcut BID RF: 0 Discontinued levofloxacin 750 mg tablet 750 mg PO DAILY RF: 0 amoxicillin-pot clavulanate 875-125 mg tablet 1 tab PO BID RF: 0 Other Ambulatory Orders: Complete Blood Count AUTO DIFF (PRN) Timeframe: [id number] Facility: [facility] - Location: Laboratory Ordered By: Dejuan Benson Complete Blood Count AUTO DIFF (PRN) Timeframe: 20190410 Facility: [facility] - Location: Laboratory Ordered By: Dejuan Benson Complete Blood Count AUTO DIFF (PRN) Timeframe: 20190411 Facility: [facility] - Location: Laboratory Ordered By: Dejuan Benson Complete Blood Count AUTO DIFF (PRN) Timeframe: 20190412 Facility: [facility] - Location: Laboratory Ordered By: Dejuan Benson Complete Blood Count AUTO DIFF (PRN) Timeframe: 20190413 Facility: [facility] - Location: Laboratory Ordered By: Dejuan Benson Creatine Kinase (PRN) Timeframe: [id number] Facility: [facility] - Location: Laboratory Ordered By: Dejuan Benson Creatine Kinase (PRN) Timeframe: 20190410 Facility: [facility] - Location: Laboratory Ordered By: Dejuan Benson Creatine Kinase (PRN) Timeframe: 20190411 Facility: [facility] - Location: Laboratory Ordered By: Dejuan Benson Creatine Kinase (PRN) Timeframe: 20190412 Facility: [facility] - Location: Laboratory Ordered By: Dejuan Benson Creatine Kinase (PRN) Timeframe: 20190413 Facility: [facility] - Location: Laboratory Ordered By: Dejuan Benson Comprehensive Metabolic Panel (PRN) Timeframe: [id number] Facility: [facility] - Location: Laboratory Ordered By: Dejuan Benson Comprehensive Metabolic Panel (PRN) Timeframe: 20190410 Facility: [facility] - Location: Laboratory Ordered By: Dejuan Benson Comprehensive Metabolic Panel (PRN) Timeframe: 20190411 Facility: [facility] - Location: Laboratory Ordered By: Dejuan Benosn Comprehensive Metabolic Panel (PRN) Timeframe: 20190412 Facility: [facility] - Location: Laboratory Ordered By: Dejuan Benson Comprehensive Metabolic Panel (PRN) Timeframe: 20190413 Facility: [facility] - Location: Laboratory Ordered By: Dejuan Benson C-Reactive Protein Quant (PRN) Timeframe: [id number] Facility: [facility] - Location: Laboratory Ordered By: eDjuan Benson C-Reactive Protein Quant (PRN) Timeframe: 20190410 Facility: [facility] - Location: Laboratory Ordered By: Dejuan Benson C-Reactive Protein Quant (PRN) Timeframe: 20190411 Facility: [facility] - Location: Laboratory Ordered By: Dejuan Benson C-Reactive Protein Quant (PRN) Timeframe: 20190412 Facility: [facility] - Location: Laboratory Ordered By: Dejuan Benson C-Reactive Protein Quant (PRN) Timeframe: 20190413 Facility: [facility] - Location: Laboratory Ordered By: Dejuan Benson Follow up/Referrals: Radha Mendosa MD [Physician] - Bhargav Lee MD [Physician] - 3-5 Days (Per orthopedic surgery, now with osteomyelitis on dapto and ceftriaxone) Madeline Morales DO [Primary Care Provider] - Discharge Health Status Health Concerns: Osteomyelitis Diabetes Multidrug resistant organism: MRSA Diet/Activity/Treatments Diet: Diet as Tolerated and Carb-consistent/Diabetic Activity: As tolerated Other treatments: 6 weeks of IV antibiotics, to finish 05/12/2019. Visit Report/Discharge Packet Instructions: DI for Osteomyelitis, Daptomycin Injection, Ceftriaxone Injection Visit Report Forms: Patient Portal/API, Stroke Signs & Symptoms Discharge Data Primary Care Provider: Madeline Morales Discharges patient from system. Discharge Date/Time: 04/02/19 14:00
[2019-04-02] MEDS: INSULIN GLARGINE 100 UNIT/ML 3ML PEN 50 UNIT SUBCUT (11:26)
[2019-04-02] MEDS: CEFTRIAXONE 2 GM/50 ML FROZ.PIGGY IV (11:26)
[2019-04-02] MEDS: ENOXAPARIN 40 MG/0.4 ML SYRINGE SUBCUT (11:28)
[2019-04-02] MEDS: NICOTINE 14 PATCH 14 MG TOP (11:28)
--- NOTE | 2019-04-02 11:49 | PM.PN.1 ---
Subjective Subjective Date Patient Seen: 04/02/19 Time Patient Seen: 11:49 Interval history: Patient is HD #5 Left foot osteomyelitis chronic ulceration. Patient has a MRSA bacteremia and remains on IV antibiotics. Blood cultures from 03/31 remain negative. He has no complaints today. Exam Vital Signs (past 8 hours): - 04/02/19 04:55 04/02/19 08:00 Temperature 97.7 F 98.1 F Pulse Rate 85 91 H Respiratory Rate 16 16 Blood Pressure 119/73 130/85 Pulse Oximetry 94 97 Oxygen Delivery Method Room Air Oxygen Flow Rate 0 Narrative Exam Narrative: 58 year old male resting in bed. Dressing on LLE taken down. No gross purulence from either medial wound or wound overlying the 1st metatarsal. Medial ulceration granulating well. No new areas of fluctuance were noted. No ascending erythema. Wound redressed with wet to dry dressing. Objective Labs Result Diagrams: 04/02/19 05:00 04/02/19 05:00 Labs: Laboratory Results - last 24 hr 04/02/19 04/02/19 05:00 05:00 WBC 7.8 RBC 4.66 Hgb 13.2 L Hct 39.6 L MCV 85.1 MCH 28.2 MCHC 33.2 RDW 15.8 H Plt Count 255 Neut % (Auto) 62.9 Lymph % (Auto) 20.2 L Chambers % (Auto) 12.1 Eos % (Auto) 4.2 H Baso % (Auto) 0.6 Neut # (Auto) 4900 Lymph # (Auto) 1600 Chambers # (Auto) 900 Eos # (Auto) 300 Baso # (Auto) 0 Sodium 136 L Potassium 3.8 Chloride 101 Carbon Dioxide 27 BUN 16 Creatinine 0.60 L Estimated GFR > 60.0 BUN/Creatinine Ratio 26.7 H Glucose 198 H Calcium 8.8 Magnesium 2.1 Assessment & Plan Assessment & Plan narrative: Patient's antibiotic management per Medicine team. Patient has portable wound vac which he brought with him. However we lack the appropriate connector to place this prior to discharge. Patient will be returning to hospital for IV infusions. Will continue daily wet to dry dressing changes at time of infusion until he can be seen at wound care next week. At that point will resume negative pressure wound care. Will need follow up with wound care next week.
[2019-04-02] MEDS: INSULIN ASPART 100 UNIT/ML INSULN PEN SUBCUT (12:24)
--- NOTE | 2019-04-02 14:22 | PC.NURSE ---
Day shift and discharge. Pt sleeping at start of shift, did not wake pt up as he can get upset with sleep interrupted. he awoke later and was upset bc his breakfast was now cold. Offered to heat it up but he declined. Slept after breakfast. Awoke pt to start his abx infusions later in the AM. Infused through PICC line wihtout issue. PICC dressing is CDI and positive blood draw from line. Pt sleeping during IV abx admin. Once it beeped he got upset, stating that he had been waiting all f day there were only a few buses left etc. Attempted to have pt sign paperwork for d/c, he scribbled on the page but did not sign. would not allow me to go over d/c instructions with him. Aware he is to return to hospital tomorrow for IV abx infusion and dressing change between 9-10AM. Pt states he took all belongings with him including his cell phone, w/c, and cane. Left in his w/c, was allowed to accompany him to elevator on this floor but no further. He would get angry and then appologize in the next sentence.
--- NOTE | 2019-04-02 15:41 | CM.DPNOTE ---
DC Note: DC order completed by DR Benson today and RN Coordinator Magdalena bernstein w/the coordination of David's infusion services through [facility] infusion[facility]. David has been instructed to return tomorrow [id number] for infusion of IV Dapto and IV Ceftriaxone Q24. Continue wound care f/u P: DC home truck w/close outpt f/u and [facility] infusion x6 weeks JW
--- NOTE | 2019-04-04 10:52 | PC.NURSE ---
ADHESIVE ALLERGY: WHEN CHANGING DRESSING PLEASE USE [id number], PT IS ALLERGIC TO TAGADERM ADHESIVE
--- NOTE | 2019-04-15 16:12 | CM.DPNOTE ---
Event Note 04.15.19 This TUBING TESTER was notified 04.14.19 at approx 1630 by construction rep Domonique that one of David's outpt infusion drugs, Dapto, was denied by [employer] this week. Since that time, infusion clinic had contacted PCP Dr Morales's office and requested they appeal and f/u re: this denial so as not to interrupt David's infusion course that is scheduled for another approx 4 weeks. David had been arriving daily for his dose as instructed. ZULLY Youssef was concerned that since the infusion clinic would be closed , David's needs may not get addressed if not relayed to Care management team. David's PICC was also removed this week for concern of infection. This AM; reviewed above w/ ZULLY Dunham and KATELIN Joseph; initially we thought if David had come to the floor for his infusion, the course would not be interrupted per home administrator clearance. Found out later that David had already been instructed not to show up for his infusion because his insurance had denied the drug. Spoke w/KATELIN Joseph throughout the day and inevitably spoke w/ Dr Morales; she explained Dr Wiggins, ID doc at [facility],was consulted and she was asked if she would complete a peer to peer w/[employer] sales account representative to attempt reversal of this denial and Dr Wiggins did not agree to do that, she instead suggested that David be admitted to for his IV abx, she agreed he still needed Dapto. Dr Morales does not feel today, based on input from Dr Wiggins suggesting David needs medical admission, that she can argue for outpt IV infusion on David's behalf. Dr Morales will no longer be admitting her own primary care patients (they will need to be admitted by the hospitalist service) Discussed w/ Dr Morales that: [employer] will not authorize a medical stay that is not medically necessary. Also discussed the reality that David would likely not be accepted at a SNF for completion of his IV abx d/t his h/o leaving AMA and labile/verbally abusive moods/episodes. This TUBING TESTER suggested that David is capable of arriving to his outpt infusion daily, he has proven that, it is not realistic or fair to assume he is capable of remaining calm compliant or cooperative with care if admitted to an inpt setting. Dr Mendosa has been consulted today and suggests David have a chance at the additional 4 weeks of iv infusion before additional consult or discussion about amputation. Update from KATELIN Joseph: David has been instructed to arrive at the ER Thursday for IV abx and further assessment of medical need. TUBING TESTER and DC planning team will follow closely and coordinate the safest plan available to David upon any future admissions. ANGIE Cantu
== END 2019-04-02 14:00 | disposition home or self-care (01) | DRG 344 ==
LOC: ED 15:00 → AC 15:14
PROVIDERS: Internal Medicine; Nurse Practitioner Adult Health; Admitting Provider Internal Medicine; Emergency Provider Nurse Practitioner; PCP Family Medicine; Visit Provider Internal Medicine
DX: E11.69 Type 2 diabetes mellitus with other specified complication (principal); R78.81 Bacteremia; B95.62 Methicillin resistant Staphylococcus aureus infection as the cause of diseases classified elsewhere; E11.610 Type 2 diabetes mellitus with diabetic neuropathic arthropathy; E11.42 Type 2 diabetes mellitus with diabetic polyneuropathy; E11.65 Type 2 diabetes mellitus with hyperglycemia; L03.116 Cellulitis of left lower limb; E11.621 Type 2 diabetes mellitus with foot ulcer; L97.429 Non-pressure chronic ulcer of left heel and midfoot with unspecified severity; M86.172 Other acute osteomyelitis, left ankle and foot; M86.672 Other chronic osteomyelitis, left ankle and foot; J44.9 Chronic obstructive pulmonary disease, unspecified; F17.210 Nicotine dependence, cigarettes, uncomplicated; Z59.0 Homelessness; B96.4 Proteus (mirabilis) (morganii) as the cause of diseases classified elsewhere; Z16.23 Resistance to quinolones and fluoroquinolones; Z16.29 Resistance to other single specified antibiotic; Z16.11 Resistance to penicillins
CPT/HCPCS: 36415; 36569; 36592; 73630; 73701; 80048; 80053; 80202; 81003; 82962; 83605; 83735; 84100; 84145; 85025; 85651; 86140; 87040; 87077; 87147; 87150; 87186; 87205; 87633; 93306; 94640; 94760; 96361; 96365; 96366; 96367; 99284; 99285; 99406; J0696; J0878; J1650; J2543; J7613; Q9957; Q9967

== ENCOUNTER → 2019-04-04 11:27 | Outpatient (CLI) | payer OTHER, MEDICAID, SELFPAY | PROVIDERS: PCP Family Medicine; Referring Provider Family Medicine; Visit Provider Family Medicine | DX: E11.621 Type 2 diabetes mellitus with foot ulcer (principal); L97.524 Non-pressure chronic ulcer of other part of left foot with necrosis of bone; L97.526 Non-pressure chronic ulcer of other part of left foot with bone involvement without evidence of necrosis; M86.672 Other chronic osteomyelitis, left ankle and foot; L03.116 Cellulitis of left lower limb; Z79.4 Long term (current) use of insulin | CPT/HCPCS: 11042; 97605; 99214 ==

== ENCOUNTER → 2019-04-06 15:19 | Outpatient (CLI) | payer OTHER, MEDICAID, SELFPAY | PROVIDERS: PCP Family Medicine; Referring Provider Family Medicine; Visit Provider Family Medicine | DX: L97.524 Non-pressure chronic ulcer of other part of left foot with necrosis of bone (principal); E11.621 Type 2 diabetes mellitus with foot ulcer | CPT/HCPCS: 97605 ==

== ENCOUNTER → 2019-04-08 10:33 | Outpatient (CLI) | payer OTHER, MEDICAID, SELFPAY ==
[2019-03-29 17:12] VITALS: BMI 33.0
== END ==
PROVIDERS: PCP Family Medicine; Visit Provider Family Medicine
DX: E11.621 Type 2 diabetes mellitus with foot ulcer (principal); L97.523 Non-pressure chronic ulcer of other part of left foot with necrosis of muscle; L97.526 Non-pressure chronic ulcer of other part of left foot with bone involvement without evidence of necrosis
CPT/HCPCS: 97605

== ENCOUNTER → 2019-04-11 13:20 | Outpatient (CLI) | payer OTHER, MEDICAID, SELFPAY | PROVIDERS: PCP Family Medicine; Referring Provider Family Medicine; Visit Provider Family Medicine | DX: E11.621 Type 2 diabetes mellitus with foot ulcer (principal); L97.524 Non-pressure chronic ulcer of other part of left foot with necrosis of bone; L97.526 Non-pressure chronic ulcer of other part of left foot with bone involvement without evidence of necrosis; M86.672 Other chronic osteomyelitis, left ankle and foot; L03.116 Cellulitis of left lower limb; Z79.4 Long term (current) use of insulin; Z72.0 Tobacco use | CPT/HCPCS: 11042; 97605; 99214 ==

== ENCOUNTER → 2019-04-13 09:01 | Outpatient (CLI) | payer OTHER, MEDICAID, SELFPAY ==
[2019-03-29 17:12] VITALS: BMI 33.0
== END ==
PROVIDERS: PCP Family Medicine; Visit Provider Family Medicine
DX: E11.621 Type 2 diabetes mellitus with foot ulcer (principal); L97.524 Non-pressure chronic ulcer of other part of left foot with necrosis of bone; L97.526 Non-pressure chronic ulcer of other part of left foot with bone involvement without evidence of necrosis; R60.0 Localized edema
CPT/HCPCS: 97605

== ENCOUNTER → 2019-04-14 10:00 | Oncology outpatient (ONC) | payer OTHER, MEDICAID, SELFPAY ==
[2019-03-29 17:12] VITALS: BMI 33.0
[2019-04-03 09:51] VITALS: BP 142/88; PULSE 98; RESP 16; O2SAT 92
[2019-04-03] MEDS: CEFTRIAXONE 2 GM/50 ML FROZ.PIGGY IV (10:05)
--- NOTE | 2019-04-03 10:54 | PC.NURSE ---
Wet to Dry drsg completed to left foot. minimal drainage from ribbon gauze site, serous and clear. rinsed with ns and new ribbon gauze inserted. medial foot wound had mod amt of yellow drainage to old drsg. rinsed with ns and patted dry. granulation tissue to wound bed, erythema to surrounding tissue. applied ns moistened gauze, dry 4x4's, kerlix and coban lightly wrapped to help secure per patient request. tolerated well. denies pain.
[2019-04-04] MEDS: CEFTRIAXONE 2 GM/50 ML FROZ.PIGGY IV (10:46)
[2019-04-04 10:57] VITALS: BP 145/93; PULSE 100; RESP 18; O2SAT 94
[2019-04-05] MEDS: CEFTRIAXONE 2 GM/50 ML FROZ.PIGGY IV (11:25)
--- NOTE | 2019-04-05 11:40 | PC.NURSE ---
Addendum entered by Kelli Macdonald R.N. 04/05/19 16:00: Spoke with Cherie at Dr. Morales's office r/t pt c/o of itching and appearance of dressing when he came into this clinic earlier today. Per Cherie, RX for hydrocortisone and Hydroxyzine were prescribed. Cherie states she will give him a call and check in with pt. Original Note: Pt seen in clinic today for IV ABX. According to pt his dressing was changed yesterday. However, pt's dressing was practically fully removed, upper right edge of dressing was only part of dressing still attached to skin. PICC insertion site was exposed to open air and remaining portion of dressing was folded against itself and crunched up. Remaining portion of dressing removed. Redness noted to upper area where dressing was placed.. Small, scattered, pen tip sized, areas of scabbing noted. Pt reports dressing was extremely itchy and driving him crazy. Explained to pt that it appears that the hypo allergenic dressing was placed with dressing change yesterday, pt verbalizes understanding. PICC line flushes easily and good blood return noted. Pt denies discomfort upon flushing just itches like crazy. [place] view dressing placed per protocol, CDI. Triage aware of PICC site dressing issue. Dr. Morales's office notified by ZULLY Chu, awaiting response.
--- NOTE | 2019-04-05 13:20 | PC.NURSE ---
pt getting mildly agitated of length of time here in the infusion clinic. choose not to wait for diabetes specialist to finish with prescription request. PICC flushed and pt on his way via wheelchair.
[2019-04-06 10:28] VITALS: BP 153/89; PULSE 99; RESP 18; TEMP 36.6; O2SAT 93
[2019-04-06] MEDS: CEFTRIAXONE 2 GM/50 ML FROZ.PIGGY IV (10:53)
[2019-04-07 11:28] LABS: Add Manual Diff / Slide Review NO; Basophils Absolute Auto 100 /uL (0-100); Basophils Percent Auto 1.1 % (0-2); Eosinophils Absolute Auto 500 /uL (0-450); Eosinophils Percent Auto 5.6 % (2-4); Hematocrit 39.3 % (41-53); Hemoglobin 13.4 g/dL (13.5-17.5); Lymphocytes Absolute Auto 1800 /uL (1100-4500); Lymphocytes Percent Auto 21.1 % (25-40); Mean Corpuscular HGB Conc 34.2 % (30-36); Mean Corpuscular Hemoglobin 29.1 PG (26-34); Mean Corpuscular Volume 85.1 fL (80-100); Monocytes Absolute Auto 500 /uL (0-900); Monocytes Percent Auto 5.8 % (3-14); Neutrophils Absolute Auto 5800 /uL (1500-7000); Neutrophils Percent Auto 66.4 % (50-75); Platelet Count 389 X10^3/uL (150-400); Red Blood Cell Count 4.62 X10^6/uL (4.5-5.9); White Blood Cell Count 8.7 X10^3/uL (4.5-11.0)
[2019-04-07] MEDS: CEFTRIAXONE 2 GM/50 ML FROZ.PIGGY IV (11:34)
[2019-04-07 11:47] LABS: Alanine Aminotransferase 23 IU/L (<50); Albumin 3.7 g/dL (3.5-5.0); Albumin Globulin Ratio 0.9 (1.0-2.8); Alkaline Phosphatase 121 U/L (38-126); Aspartate Aminotransferase 19 IU/L (17-59); BUN Creatinine Ratio 27.5 (6-22); Bilirubin Total 0.2 mg/dL (0.2-1.3); Blood Urea Nitrogen 22 mg/dL (9-20); C-Reactive Protein Quant 1.6 mg/dL (<1.0); Carbon Dioxide 29 mmol/L (22-32); Chloride 101 mmol/L (98-107); Creatine Kinase 60 U/L (55-170); Estimated Glomerular Filt Rate > 60.0 mL/min (>60); Glucose 241 mg/dL (70-100); HEMOLYSIS < 15 (0-50); Potassium 4.4 mmol/L (3.4-5.1); Sodium 138 mmol/L (137-145); Total Protein 7.7 g/dL (6.3-8.2)
--- NOTE | 2019-04-07 13:43 | PC.NURSE ---
left arm at PICC site and surrounding skin itching, red and evidence of patient scratching skin. PICC drsg changed; drsg not occulsive and moisture under drsg. site cleaned, bio patch placed on catheter site. drsg covered with coban loosely.
[2019-04-08 09:57] VITALS: BP 145/95; PULSE 91; RESP 12; TEMP 36.5; O2SAT 97
[2019-04-08] MEDS: CEFTRIAXONE 2 GM/50 ML FROZ.PIGGY IV (10:02)
--- NOTE | 2019-04-08 11:01 | PC.NURSE ---
Addendum entered by Cale Hernández R.N. 04/08/19 11:48: PICC covered in loose coban prior to discharge. Addendum entered by Cale Hernández R.N. 04/08/19 11:45: Infusion completed. Patient tolerated infusion well. Upon infusion completion PICC line flushed per protocol, patient belongings gathered and patient transported self out of room to exit in wheelchair. Original Note: Infusion Note Patient arrives for infusion of antibiotics alert and oriented. Vital signs charted, infusion initiated without incident. Patient resting through infusion, care continues.
[2019-04-09] MEDS: CEFTRIAXONE 2 GM/50 ML FROZ.PIGGY IV (09:23)
[2019-04-10] MEDS: CEFTRIAXONE 2 GM/50 ML FROZ.PIGGY IV (09:27)
[2019-04-10 09:44] VITALS: BP 142/82; PULSE 101; RESP 22; TEMP 36.7; O2SAT 97
--- NOTE | 2019-04-10 09:45 | PC.NURSE ---
Addendum entered by Hosea Garcia R.N. 04/10/19 11:34: Picc deaccessed per protocal. Pt on his way home. Original Note: Pt arrived via w/c stating it took 2 hours of uphill pushing to get here. Pt settled to room given snack and hooked to picc per protocal. ABx per orders.
[2019-04-11] MEDS: CEFTRIAXONE 2 GM/50 ML FROZ.PIGGY IV (08:59)
[2019-04-11 09:07] VITALS: BP 111/81; PULSE 98; RESP 15; TEMP 36.7; O2SAT 95
[2019-04-12] MEDS: CEFTRIAXONE 2 GM/50 ML FROZ.PIGGY IV (08:48)
[2019-04-13] MEDS: CEFTRIAXONE 2 GM/50 ML FROZ.PIGGY IV (11:03)
--- NOTE | 2019-04-13 13:17 | PC.NURSE ---
Addendum entered by Mckenzie Jara R.N. 04/13/19 13:21: will con't IVAbx per peripherial IVs Q3 days. Original Note: JAISON Picc site drsg removed. skin with dried serum type stuff under drsg. Jody ANDREA in DI called to assess skin. recommended to dc picc line. pt reports severe itching of skin under drsg. Picc dc'd by Eliana ANDREA.
--- NOTE | 2019-04-13 13:37 | PC.NURSE ---
PICC discontinued Central line was removed by this RN per hospital protocol. Upon removal, patient's skin had large amounts of dried serous scab-like material surrounding insertion site. Cleansed skin with warm water and gentle soap. Skin appeared red and raised with small blisters.
--- NOTE | 2019-04-14 09:35 | ONC.MSW ---
Description: Daptomycin Denial Letter from [employer]/Plan for Cont. Tx Activity: Discussed with Lucy Baez/Maddie Alonso that we received a denial letter from [employer] dated 04/08 for the daptomycin that pt began receiving here on the . Yesterday, pt also needed to have his PICC line removed yesterday while he was in our infusion room due to issues the RN's deemed high risk. Lucy directed us to call pt's PCP and try to get him in to her clinic to evaluate for possible sepsis with labs, and to direct us re: next steps for his treatments-either change to an approved antibiotic or appeal this denial. digital retoucher here in clinic spoke to his PCP, she directed us to do his labs and based on the results he may have to go to the ER. We faxed over the denial letter and her office will begin the appeal. They will also f/u with us re: next steps for his continued outpatient antibiotic infusions, which is scheduled to last another 5-weeks.
[2019-04-14] MEDS: CEFTRIAXONE 2 GM/50 ML FROZ.PIGGY IV (09:49)
[2019-04-14 09:56] VITALS: BP 132/84; PULSE 106; RESP 18; TEMP 36.6; O2SAT 94
[2019-04-14 10:07] LABS: Add Manual Diff / Slide Review NO; Basophils Absolute Auto 100 /uL (0-100); Basophils Percent Auto 1.4 % (0-2); Eosinophils Absolute Auto 300 /uL (0-450); Eosinophils Percent Auto 3.8 % (2-4); Hemoglobin 13.9 g/dL (13.5-17.5); Lymphocytes Absolute Auto 1400 /uL (1100-4500); Lymphocytes Percent Auto 17.5 % (25-40); Mean Corpuscular HGB Conc 33.1 % (30-36); Mean Corpuscular Hemoglobin 28.7 PG (26-34); Mean Corpuscular Volume 86.8 fL (80-100); Monocytes Absolute Auto 500 /uL (0-900); Monocytes Percent Auto 5.9 % (3-14); Neutrophils Absolute Auto 5700 /uL (1500-7000); Neutrophils Percent Auto 71.4 % (50-75); Platelet Count 316 X10^3/uL (150-400); Red Blood Cell Count 4.84 X10^6/uL (4.5-5.9); Red Cell Distribution Width 16.1 % (11.6-14.8)
--- NOTE | 2019-04-14 10:24 | PC.NURSE ---
Spoke with Dr. Morales over the phone to discuss pt's PICC line DC yesterday and presentation today. Informed Dr. Morales that pt's LUE where PICC line was inititally placed is red, with small blisters noted, also areas of small scabbing present, and dry areas of flaking skin noted. Pt c/o of itching like crazy. Pt is Afebrile. No drainage noted. Also informed Dr. Morales that apparently pt's antibiotic had not been pre auth'ed and his course of antibiotics has been denied coverage. Dr. Morales verbalizes understanding. Informed Dr. Morales that pt is here in clinic and we plan is to give antibiotic and draw labs today per order, Dr. Morales will monitor results. Also discussed pt seeing Dr. Morales today for assessment, however, she did not think it was necessary or that anything more could be done at this point with an appt. Call ended. This sign writer letterer or painter faxed over denial forms to Dr. Morales's office requesting urgent appeal and also attached note explaining, according to my understanding, this clinic could not administer pt's antibiotic tomorrow ThursdayApr 15 without insurance approval. Also spoke with Dr. Morales's MAChe[facility]; according to Cherie they did receive denial forms and they were then sent to Dr. Woo's office and [facility] clinic is awaiting response. This sign writer letterer or painter reiterated to Cherie that we could not give ABX tomorrow w/o insurance approval, Cherie voiced understanding and agrees to inform Dr. Morales. This sign writer letterer or painter updated pt on situation. Instructed pt to call Dr. Morales's office this afternoon if he has not received further instructions r/t tomorrow's dose of antibiotic. Pt verbalizes understanding and in agreement.
[2019-04-14 10:27] LABS: Alanine Aminotransferase 20 IU/L (<50); Albumin 3.9 g/dL (3.5-5.0); Alkaline Phosphatase 99 U/L (38-126); Aspartate Aminotransferase 30 IU/L (17-59); BUN Creatinine Ratio 32.9 (6-22); Bilirubin Total 0.6 mg/dL (0.2-1.3); Blood Urea Nitrogen 23 mg/dL (9-20); C-Reactive Protein Quant 0.9 mg/dL (<1.0); Calcium 8.9 mg/dL (8.4-10.2); Carbon Dioxide 27 mmol/L (22-32); Chloride 97 mmol/L (98-107); Creatine Kinase 165 U/L (55-170); Estimated Glomerular Filt Rate > 60.0 mL/min (>60); Globulin 4.1 g/dL (1.7-4.1); Sodium 134 mmol/L (137-145)
[2019-04-14 10:31] LABS: Potassium 5.3 mmol/L (3.4-5.1)
[2019-04-14 10:40] LABS: Glucose 483 mg/dL (70-100); HEMOLYSIS 83 (0-50)
[2019-04-14] MEDS: NEOMYCIN/POLYMYXIN/BACITRA UD OINT 1 EACH TOP (10:41)
--- NOTE | 2019-04-14 11:37 | PC.NURSE ---
skin: area surrounding picc site marked with pen. skin has raised bumps, dry and red.
--- NOTE | 2019-04-15 10:49 | PC.NURSE ---
CALLED CARMINA (NURSE) AT DR. MEJIA'S OFFICE. SHE DISCUSSED INSURANCE/DAPTOMYCIN WITH DR. MEJIA. PLAN IS, PATIENT WILL NOT COME FOR INFUSION AT THIS TIME. PATIENT HAS A CLINIC APPT THIS AFTERNOON, AND DECISIONS WILL BE MADE FROM THERE BASED ON PATIENT'S STATUS.
== END ==
PROVIDERS: PCP Family Medicine; Visit Provider Internal Medicine
DX: M86.10 Other acute osteomyelitis, unspecified site (principal); A49.02 Methicillin resistant Staphylococcus aureus infection, unspecified site; R78.81 Bacteremia; E11.621 Type 2 diabetes mellitus with foot ulcer; L97.429 Non-pressure chronic ulcer of left heel and midfoot with unspecified severity; Z97.4 Presence of external hearing-aid
CPT/HCPCS: 36415; 36592; 80053; 82550; 85025; 86140; 96365; 96367; 96523; J0696; J0878

== ENCOUNTER → 2019-04-15 08:34 | Outpatient (CLI) | payer OTHER, MEDICAID, SELFPAY ==
[2019-03-29 17:12] VITALS: BMI 33.0
== END ==
PROVIDERS: PCP Family Medicine; Visit Provider Family Medicine
DX: E11.621 Type 2 diabetes mellitus with foot ulcer (principal); L97.524 Non-pressure chronic ulcer of other part of left foot with necrosis of bone; L97.526 Non-pressure chronic ulcer of other part of left foot with bone involvement without evidence of necrosis; R60.0 Localized edema
CPT/HCPCS: 97605

== ENCOUNTER 2019-04-16 16:38 | Inpatient (IN) | payer OTHER, SELFPAY, MEDICAID ==
[2019-03-29 17:12] VITALS: BMI 33.0
--- NOTE | 2019-04-16 16:48 | P.HP_ITS ---
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 Patient's care is complicated by homelessness although it appears he has been compliant with outpatient follow-up and treatments. He was last admitted to [facility] from March 29, 2019 to April 02, 2019 for treatment of left foot abscess and osteomyelitis. He is well known to Dr. Weems forefoot ortho and Dr. Nieves for Infectious Disease. The plan was for him to get 6 weeks of outpatient IV antibiotic in hopes of sparing him an amputation. He was discharged on daptomycin and Rocephin based on positive blood cultures for MRSA and Proteus bacteria on 03/28/2019 and 03/29/2019. His left arm PICC line had to be removed due to severe inflammation of the skin which was causing him to pull at the PICC line. Also the main reason he is now admitted is because his insurance is not authorizing daptomycin since it is non formulary. His primary care provider Dr. Morales had called me yesterday to discuss admission and we decided to bring patient in for antibiotic management. He will require 4 weeks of inpatient treatment to complete 6 weeks of IV therapy. Patient also has been going to wound care 3 times a day for wound VAC care. He notes that about a week ago an old ulcer area reopened on plantar surface of his left foot. Wound care has been monitoring and managing this as well. Patient denies any new symptoms including fevers, chills, cough. Patient History Family & Social History Social History: household members none Tobacco & Substance use: Tobacco type cigarettes Smoking Status Current every day smoker alcohol intake former alcohol intake frequency holiday/special occasion Substance Use Type does not use Meds Home Medications and Allergies Home Medications Medication Instructions Recorded Confirmed Type melatonin 10 mg PO BEDTIME PRN #0 08/20/18 03/29/19 History fluticasone propionate 50 1 spray NASAL BID #15.8 ml 12/20/19 01/14/20 Rx mcg/actuation nasal spray,suspension albuterol sulfate 1 - 2 puff INHALATION Q4-6H PRN 03/29/19 03/29/19 History ceftriaxone in dextrose,iso-os 2 gram IV Q24H 41 Days #2050 each 04/02/19 Rx NS daptomycin 900 mg IV Q24H 41 Days #41 each 04/02/19 Rx sodium chloride 0.9 % (flush) 10 ml IV PRN PRN 41 Days #82 ea 04/02/19 Rx [Normal Saline Flush] hydrocortisone 2.5 % topical cream 1 applictn TOP BID PRN #20 gram 04/05/19 04/05/19 Rx hydroxyzine HCl 25 mg tablet 25 mg PO TID PRN #30 tab 04/05/19 Rx insulin glargine 100 unit/mL (3 50 unit SUBCUT BID 30 Days #30 ml 04/05/19 04/05/19 Rx mL) subcutaneous pen lancets 30 gauge #100 each 04/05/19 04/05/19 Rx metformin 1,000 mg tablet 1,000 mg PO BID #180 tab 04/05/19 04/05/19 Rx pen needle, diabetic 31 gauge x #60 each 04/05/19 04/05/19 Rx 1/4 Allergies Allergy/AdvReac Type Severity Reaction Status Date / Time No Known Drug Allergies Allergy Verified 03/29/19 11:03 Review of Systems Review of Systems ROS: Yes All systems reviewed with the patient and are negative except as otherwise documented Exam Narrative Exam Narrative: GENERAL: This is a very pleasant but discharge oval male in no acute distress HEAD: Atraumatic. Normocephalic. EYES: Pupils equal, round and reactive. Extraocular motions intact. No scleral icterus. OROPHARYNX: moist mucosa NECK: Trachea midline. No JVD or lymphadenopathy. CARDIOVASCULAR: Regular rate and rhythm without murmurs, gallops, or rubs. RESPIRATORY: Breathing is nonlabored, mild bilateral expiratory wheeze GASTROINTESTINAL: Abdomen nondistended, soft, non-tender. No hepato- splenomegaly, or palpable masses. EXTREMITIES: No edema. There is a large rectangular patch of erythema on left upper arm at previous PICC line insertion. On the left foot there is some inflammation around the left ankle which is not cellulitis. Wound VAC in place on 1st metatarsal. There is some serous drainage on the dressing over the wound VAC. 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 1. Left foot chronic osteomyelitis with Charcot ulceration, present on admission -last dose outpatient IV antibiotics was 04/14/2019, and he missed admissionhis dose day prior to this admission -admission labs for CBC, BMP, blood cultures x2 -last CRP 0.9 on 04/14/2019 which is marked improvement from 04/14/2019 on 03/29/2019 -start vancomycin to treat MRSA and ertapenem 1 g Q 24 hours to treat mixed Gram-negative and anaerobic organisms -expected length of antibiotic therapy will be for 4 weeks -from service to dose vancomycin and monitor trough levels -continue wound VAC -wound care consult -hydrocortisone 2.5% cream b.i.d. to left ankle inflamed skin which wound care had recommended to patient 2. Type 2 diabetes with polyneuropathy, insulin requiring, poorly controlled -last A1C > 12 -resume patient's Lantus 50 units b.i.d. and metformin 1000 mg b.i.d. -medium carbohydrate meals, NovoLog high-dose sliding scale 3. Current smoker -nicotine patch 21 mg 4. COPD -stable -albuterol MDI as needed, may keep at bedside for patient to self administer 5. Acute dermatitis rash left arm, present on admission -this is associated with previous PICC line dressing, patient states he has had several PICC lines before and never had this reaction -apply hydrocortisone cream b.i.d. -will need to order right arm PICC line for Thursday to be done by in-house PICC line nurse 6. Tinea cruris, present on admission -nystatin cream b.i.d.
[2019-04-16 17:00] LABS: Add Manual Diff / Slide Review NO; Basophils Absolute Auto 100 /uL (0-100); Basophils Percent Auto 0.8 % (0-2); Eosinophils Absolute Auto 300 /uL (0-450); Eosinophils Percent Auto 3.6 % (2-4); Hematocrit 43.1 % (41-53); Hemoglobin 14.2 g/dL (13.5-17.5); Lymphocytes Absolute Auto 1300 /uL (1100-4500); Lymphocytes Percent Auto 16.9 % (25-40); Mean Corpuscular HGB Conc 32.9 % (30-36); Mean Corpuscular Hemoglobin 28.8 PG (26-34); Mean Corpuscular Volume 87.5 fL (80-100); Monocytes Absolute Auto 600 /uL (0-900); Monocytes Percent Auto 7.5 % (3-14); Neutrophils Absolute Auto 5700 /uL (1500-7000); Neutrophils Percent Auto 71.2 % (50-75); Platelet Count 295 X10^3/uL (150-400); Red Blood Cell Count 4.93 X10^6/uL (4.5-5.9)
[2019-04-16 17:08] LABS: BUN Creatinine Ratio 23.8 (6-22); Blood Urea Nitrogen 19 mg/dL (9-20); Carbon Dioxide 27 mmol/L (22-32); Chloride 98 mmol/L (98-107); Estimated Glomerular Filt Rate > 60.0 mL/min (>60); Glucose 425 mg/dL (70-100); HEMOLYSIS < 15 (0-50); Potassium 4.1 mmol/L (3.4-5.1); Sodium 137 mmol/L (137-145)
[2019-04-16 17:51] VITALS: BMI 33.6
[2019-04-16] MEDS: NICOTINE 21 MG PATCH TOP (18:03)
[2019-04-16 18:16] VITALS: BP 163/100; PULSE 102; RESP 20; TEMP 36.9; O2SAT 95
[2019-04-16] MEDS: ERTAPENEM 1 GM in SODIUM CHLORIDE 0.9% 100 ML 200 ML IV (18:33)
--- NOTE | 2019-04-16 18:42 | PC.ADMIT ---
Admission Note: 1645: Pt arrived on acute care floor for direct admit. Wheeled self in personal wheelchair to room. Alert/oriented, oriented to room/call light. Reports generalized pain 5/10 at worst. States I don't want narcotics or anything right now. Pictures of left foot wound taken by Coordinator. Wound vac present, reinforced with tegaderm on an area per pt request. Left upper arm with area of redness/abrasion from scratching-pt reports this is due to a reaction of some sort. Assisted pt to change into own clean/comfortable clothing. The patient,David Givens,59 y/o, was given written information regarding hospital policies, unit procedures and contact persons. Patient's smoking status: Current every day smoker. Vital Signs - 8 hr 04/16/19 18:16 Temperature 98.4 F Pulse Rate 102 H Respiratory Rate 20 Blood Pressure 163/100 H Pulse Oximetry 95
[2019-04-16] MEDS: VANCOMYCIN 1,000 MG/200 ML PIGGYBACK 200 MG IV (19:20)
[2019-04-16 19:49] VITALS: PULSE 102; RESP 20; O2SAT 95
[2019-04-16] MEDS: METFORMIN HCL 500 MG TABLET 1000 MG PO (20:06)
[2019-04-16] MEDS: hydrOXYzine pamoate 25 MG CAPSULE PO (20:06)
[2019-04-16] MEDS: HYDROCORTISONE 1% OINT 28 GM 1 APPLIC TOP (20:11)
--- NOTE | 2019-04-16 20:33 | PM.EVENT ---
Event Note Date Patient Seen: 04/16/19 Time Patient Seen: 20:33 Event Note: Patient complaint about itching after vanco started. He is ordered for IV benadryl 25 mg q6 hours prn.
[2019-04-16] MEDS: INSULIN ASPART 100 UNIT/ML INSULN PEN SUBCUT (20:35)
[2019-04-16] MEDS: diphenhydrAMINE 50 MG/ML VIAL (20:39)
[2019-04-16] MEDS: INSULIN GLARGINE 100 UNIT/ML 3ML PEN 50 UNIT SUBCUT (21:04)
--- NOTE | 2019-04-16 21:08 | PC.NURSE ---
Around 8pm this patient started itching profusely. He had just finished his first dose of Ertapenem and was on a dose of Vancomycin. Stopped Vanco at that time. Gave dose of Hydroxyzine, Hydrocortisone ointment. Spoke with Aamir, got an order for IVP Diphenhydramine and gave. Patient itching started improving, redness to back, knees and legs noted. Patient denied any breathing issues. Vanco restarted per Aamir. Patient had no other issues once Vanco was restarted. Patient asleep at this time, respirations noted.
[2019-04-16 23:50] VITALS: BP 125/79; PULSE 89; RESP 18; TEMP 36.9; O2SAT 90
[2019-04-17] MEDS: VANCOMYCIN 1,000 MG/200 ML PIGGYBACK 200 MG IV ×3 (01:46→20:15)
[2019-04-17] MEDS: hydrOXYzine pamoate 25 MG CAPSULE PO ×2 (04:07→18:07)
--- NOTE | 2019-04-17 04:30 | PC.NURSE ---
NOC Note: Pt has been cooperative with staff this shift. Requesting snacks, denies pain, occ hacking cough noted. Drsg to left foot intact. PRN vistaril given for c/o itching. Pt has superficial scratches on arms, old and new.
[2019-04-17 07:55] VITALS: BP 142/94; PULSE 89; RESP 17; TEMP 36.4; O2SAT 93
[2019-04-17] MEDS: NICOTINE 21 MG PATCH TOP (08:00)
[2019-04-17] MEDS: ACETAMINOPHEN 325 MG TABLET 650 MG PO (08:00)
[2019-04-17] MEDS: FLUTICASONE 120 SPRAY/16 GM SPRAY.SUSP NASAL ×2 (08:00→21:16)
[2019-04-17] MEDS: METFORMIN HCL 500 MG TABLET 1000 MG PO ×2 (08:00→21:16)
[2019-04-17] MEDS: INSULIN GLARGINE 100 UNIT/ML 3ML PEN 50 UNIT SUBCUT ×2 (08:00→21:17)
--- NOTE | 2019-04-17 08:30 | PM.PN.1 ---
Subjective Subjective Date Patient Seen: 04/17/19 Interval history: David Givens is a 59-year-old male with a past medical history significant for poorly controlled diabetes mellitus type 2, insulin using, with complication of polyneuropathy, Charcot joint, and chronic left foot diabetic ulcer with osteomyelitis of 1st metatarsal; COPD and restrictive lung disease, and current everyday smoker who was a direct admission for IV antibiotic treatment of his chronic left foot osteomyelitis. The patient is resting in bed comfortably. He complains of generalized pruritis specifically of left greater than right arm that he relates to his previous PICC line. He has no other complaints and denies headache, shortness of breath, chest pain, abdominal pain, nausea, vomiting, fever, chills, dysuria, diarrhea or constipation. He is voiding without difficulty. He has not had a bowel movement since admission and an as needed bowel regimen has been implemented. He is up ambulating minimally with assistance and is predominantly wheelchair bound. Exam Vital Signs (past 8 hours): Oxygen Delivery Method Room Air Oxygen Flow Rate 0 Narrative Exam Narrative: General: Older gentleman lying in bed and in no acute distress, appears older than stated age, well-developed, well-nourished, appropriately interactive. HEENT: Normocephalic, atraumatic. External ears without defect. Pupils equal, round, and reactive to light. Anicteric sclerae, moist conjunctivae, and no lid lag. Oropharynx free of erythema and cobble stoning with moist mucosa. Poor dentition. Neck: Supple with full range of motion. No lymphadenopathy or thyromegaly. Cardiovascular: Regular rate and rhythm without murmurs, rubs, or gallops appreciated. Pulmonary: Clear to auscultation bilaterally without crackles, wheezes, or rhonchi. Normal respiratory effort with no use of accessory muscles. Abdomen: Soft, bowel sounds present, nontender, nondistended. No hepatosplenomegaly or masses appreciated. Extremities: No clubbing or cyanosis. Left foot with dressing in place C/D/I and wound VAC with dark drainage. Skin: Dry eczematous skin with scattered excoriations throughout upper and lower extremities, L arm > R arm. Neurological: Cranial nerves grossly intact. Psychiatric: Normal mood and affect. Alert and oriented to person, place, and time. Objective Labs Result Diagrams: 04/16/19 16:54 04/16/19 16:54 Labs: Laboratory Results - last 24 hr 04/16/19 04/16/19 16:54 16:54 WBC 8.0 RBC 4.93 Hgb 14.2 Hct 43.1 MCV 87.5 MCH 28.8 MCHC 32.9 RDW 16.0 H Plt Count 295 Neut % (Auto) 71.2 Lymph % (Auto) 16.9 L [place] % (Auto) 7.5 Eos % (Auto) 3.6 Baso % (Auto) 0.8 Neut # (Auto) 5700 Lymph # (Auto) 1300 [place] # (Auto) 600 Eos # (Auto) 300 Baso # (Auto) 100 Sodium 137 Potassium 4.1 D Chloride 98 Carbon Dioxide 27 BUN 19 Creatinine 0.80 Estimated GFR > 60.0 BUN/Creatinine Ratio 23.8 H Glucose 425 H Calcium 9.0 Assessment & Plan Assessment & Plan narrative: David Givens is a 59-year-old male with a past medical history significant for poorly controlled diabetes mellitus type 2, insulin using, with complication of polyneuropathy, Charcot joint, and chronic left foot diabetic ulcer with osteomyelitis of 1st metatarsal; COPD and restrictive lung disease, and current everyday smoker who was a direct admission for IV antibiotic treatment of his chronic left foot osteomyelitis. 1. Chronic left foot osteomyelitis, secondary to non-healing diabetic ulcer, present on admission. Active. -Last dose of outpatient IV antibiotics was on 04/14/2019. He missed a dose on 04/13/2019 as the patient's insurance would no longer cover daptomycin. Patient was admitted for IV antibiotics with possible anticipated length of stay 4 weeks. -Blood cultures x2 have no growth. -Last CRP was 0.9 on 04/14/2019 which is marked improvement from 03/29/2019 and 04/07/2019. -Continue vancomycin with dosing per pharmacist to treat MRSA and ertapenem 1 g every 24 hours to treat mixed Gram-negative and anaerobic organisms for 4 weeks. -Continue wound VAC and wound care per wound care clinic for which a wound consult has been placed. -Continue hydrocortisone 2.5% cream twice a day to left ankle inflamed skin which wound care had recommended outpatient. 2. Diabetes mellitus type 2 with polyneuropathy and Charcot foot, insulin using, poorly controlled and chronic, present on admission. Stable. -Hemoglobin A1c 12.0% 02/2019. Repeat hemoglobin A1c pending. -Continue home Lantus 50 units twice daily and metformin 1000 mg twice daily. -Continue blood glucose checks and medium dose correctional insulin. -Continue carbohydrate consistent diet. 3. Tobacco dependence, chronic, present on admission. Stable. -Continue nicotine patch 21 mg daily for nicotine withdrawal. 4. COPD, present on admission. Stable. -Does not represent acute COPD exacerbation. -Continue home albuterol inhaler as needed for shortness of breath or wheezing. Patient may keep inhaler at bedside for patient to self administer. 5. Acute atopic dermatitis of bilateral arms, present on admission. Stable. -Possibly associated with previous PICC line dressing, however, the patient states he has had several PICC lines before and never had this reaction. -Continue hydrocortisone cream twice daily, A&D ointment twice daily for dry skin, Benadryl 25 mg every 6 hours as needed for itching, and Vistaril 25 mg 3 times daily as needed for itching. -Will need to order right arm PICC line for Thursday to be done by in-house PICC line nurse 6. Tinea cruris, chronic, present on admission. Stable. -Continue nystatin cream applied to groin bilaterally. Code status: Full code VTE prophylaxis: SQ Enoxaparin Disposition: Patient requires 4 weeks of IV antibiotic and potentially may require hospitalization for that extended time versus step-down at a swing bed or assisted facility.
[2019-04-17] MEDS: INSULIN ASPART 100 UNIT/ML INSULN PEN SUBCUT ×2 (12:27→16:52)
[2019-04-17 13:01] LABS: Hemoglobin A1C% w Est Avg Glu 12.4 % (4.0-6.0)
[2019-04-17] MEDS: ENOXAPARIN 40 MG/0.4 ML SYRINGE SUBCUT (13:59)
[2019-04-17] MEDS: diphenhydrAMINE 25 MG TABLET PO (13:59)
--- NOTE | 2019-04-17 15:25 | CM.DANOTE ---
Patient is a 59 year old male who was admitted on 04/16/19 for IV Abx, Osteomyelitis. Pt has [facility] and [facility] for insurance and his PCP is Dr. Morales. EMR was reviewed. Per MD, pt was a direct admit as he was consistently attending his daily wound care appointments and IV outpt infusion appts and then insurance declined coverage of his IV Dapto. Therefore the change in IV Abx dosing requirements does not allow for outpt infusion option. Pt will require 4 more weeks of IV-Abx (currently Vanco and Ertapenem) to reduce risk of amputation. PICC to likely be placed on Thursday. SW met bedside with pt and explained role and pt confirms that he continues to live in his truck and stores all of his items there. He has food stamps and denies a problem w/access to food. Pt sleeps in a garage at night, details are not disclosed to this INSERTING MACHINE OPERATOR, pt states he can sleep in this garage all winter but does not want to put the residents at risk for getting kicked out of the house due to him. Pt is aware of the motel voucher/penitentiary program in [place], understands it's on a first come first serve basis and he explains he has not used because I should not have any preference over others. Pt knows where to line up for application for this program. This INSERTING MACHINE OPERATOR reviews information on chart from last admission, that he has a phone, which pt confirms is working well, and that application has been submitted again to [facility], pt confirms and states that [facility] Kj Lainez has left a few messages and he has been meaning to call back but with his daily appointments that takes a few hours each day, he still needs to schedule a functional assessment. This INSERTING MACHINE OPERATOR offered assist w/this coordination and pt appreciative. Then discussed the 4 weeks of continued IV abx and confirmed that he requested that this be done as an outpt as Pt explains he does not want to loose his truck by leaving it in the hospital parking lot and having it towed. SW discussed possibly a meeting with the CM Repatcher and administrators to create a plan to keep his truck in hospital parking lot even if he transfers to SNF or Swing Bed for 4 weeks IV-Abx if this is the only barrier to him agreeing. Pt states he would be willing to go to a facility for IV-Abx if his truck is kept safe in the parking lot. SW Placed call to [facility] Abdulaziz Tabby# [phone], left detailed message and requested a functional assessment be completed while pt admitted at (or at facility if pt accepted at SNF which may not be an option as pt has been declined by many SNF's due to homeless status and insurance or Swing Bed). SW left msg for Natividad pressleymono at [facility] Swing Bed coordinator to call tomorrow Thursday to begin discussion of bed availability and request review for pt for 4 weeks IV-Abx. Plan: SW to follow closely tomorrow for return call from [facility] to schedule functional assessment towards alf placement and return call from [facility] to determine if they will review for intermodal truck driver IV-Abx. ANGIE Damian Discharge Planning/Care Management CM Discharge Assessment Start: 04/17/19 15:23 Freq: Status: Active Protocol: Document 04/17/19 15:23 BF (Rec: 04/17/19 15:25 BF [id number]) Discharge Planning Assessment Assigned Irrigating Pump Operator Angie Stephens Advance Directives? No History Provided By Patient,Medical Record Has Patient been admitted in last 30 Yes days? Prior Living Arrangements Homeless Household Members none Type of transporation used prior to Drives own vehicle admit Independent with ADL's No: somewhat, but declining in independence Is patient alert and oriented? Yes Needs Assistance With Bathing,Meal Prep,Managing Medications,Home Chores / Shopping Caregiver for Another No Community Services used prior to IV Therapy,Wound Care admission: Comment Was consisitent with wound care appointments and outpt Infusion, but insurance now does not cover Comment Has electric wheel-chair Name of Agency K[facility] Contact Phone [phone] Comment alf IV-Abx Barriers to Discharge Yes Comment Insurance not covering Dapto IV-Abx and now requires inpt IV Abx Whiteboard Updated in Patient Room with Yes name and ext. # of Irrigating Pump Operator Review Status In Process Please Provide Date Initial DC 04/17/19 Assessment Was Performed Next Review Type Continued Stay Review
--- NOTE | 2019-04-17 16:26 | PT-IP ANOTE ---
PT orders received and chart reviewed. Attempted to contact pt for initial evaluation, but he was sleeping soundly. Will prioritize pt for 04/18/2019 AM.
[2019-04-17 16:43] VITALS: BP 147/92; PULSE 91; RESP 18; TEMP 36.7; O2SAT 92
[2019-04-17] MEDS: VANCOMYCIN TROUGH 1 REQUEST MISC (17:55)
[2019-04-17] MEDS: ERTAPENEM 1 GM in SODIUM CHLORIDE 0.9% 100 ML 200 ML IV (18:07)
[2019-04-17 19:02] LABS: Vancomycin Trough 10.8 ug/mL (10-20)
[2019-04-17] MEDS: [UNRECOGNIZED DRUG - OTHER] TOP (21:17)
[2019-04-18 01:10] VITALS: BP 136/86; PULSE 86; RESP 16; TEMP 36.4; O2SAT 94
[2019-04-18] MEDS: VANCOMYCIN 1,000 MG/200 ML PIGGYBACK 200 MG IV ×2 (01:15→11:51)
[2019-04-18 01:20] VITALS: BP 119/77; PULSE 85; RESP 20; TEMP 36.7; O2SAT 92
--- NOTE | 2019-04-18 06:17 | PC.NURSE ---
Pt doing well. Uneventful night. No complaints of pain. Wound Vac functioning properly at 125mmHg to left foot which is wrapped in an austin bandage. Voiding plenty in urinal. Fingerstick 153 overnight
[2019-04-18 08:00] VITALS: BP 135/95; PULSE 100; RESP 20; TEMP 36.5; O2SAT 96
[2019-04-18] MEDS: INSULIN GLARGINE 100 UNIT/ML 3ML PEN 50 UNIT SUBCUT ×2 (08:15→20:23)
[2019-04-18] MEDS: FLUTICASONE 120 SPRAY/16 GM SPRAY.SUSP NASAL ×2 (08:16→20:22)
[2019-04-18] MEDS: [UNRECOGNIZED DRUG - OTHER] TOP ×2 (08:16→20:22)
[2019-04-18] MEDS: METFORMIN HCL 500 MG TABLET 1000 MG PO ×2 (08:19→17:20)
[2019-04-18] MEDS: ENOXAPARIN 40 MG/0.4 ML SYRINGE SUBCUT (08:19)
[2019-04-18] MEDS: NICOTINE 21 MG PATCH TOP (08:19)
[2019-04-18] MEDS: ACETAMINOPHEN 325 MG TABLET 650 MG PO (08:19)
--- NOTE | 2019-04-18 10:11 | PT-IP ANOTE ---
Attempted to initiate PT evaluation this morning but pt complained of LUE swelling and need to keep it elevated. PT reassured pt that he would be repositioned appropriately after eval, but pt refused. Asked if we could check on him again later today and he agreed.
--- NOTE | 2019-04-18 11:12 | DI.RAD.S_ITS ---
PROCEDURE: XR CHEST FOR PICC 1V INDICATIONS: verify PICC placement COMPARISON: [facility], CR, XR CHEST FOR PICC 1V, 03/30/2019, 9:06. FINDINGS: PICC was placed by the intravenous therapy team from the right side. Fluoroscopic spot film demonstrates the tip of PICC projecting overlying the inferior aspect of the superior vena cava IMPRESSION: Tip of PICC projects overlying the inferior aspect of the superior vena cava. The previously seen left-sided PICC line has been removed. Dictated by: Stew Thorne M.D. on 04/18/2019 at 11:43 Approved by: Stew Thorne M.D. on 04/18/2019 at 11:44
--- NOTE | 2019-04-18 11:31 | CM.DANOTE ---
Addendum entered by Kely Funes 04/18/19 12:00: Full name of [facility] CM is Claritza Reed phone# [phone]. Original Note: DCP/Continued: Reviewed chart. Patient requiring IV abx (daptomycin)for approximately 4 more weeks. Placed call to [facility] CM Claritza # [phone]. She reports that she can come out to [facility] to do state assessment for long-term placement no sooner that 04-21-19. She reports that CM team should continue to find placement if patient unable to get needed medication authorized as outpatient. Prior to hospitalization patient successfully going to/from [facility] for outpatient daptomycin.Then it was discovered that it was not a covered medication? JYOTI/Earnestine and Dr. Benson putting in new request for [facility] for outpatient daptomycin. In meantime, faxed to facilities for swing beds: [facility] and [facility]. [facility] reports they do not have medicaid bed. [facility]. P: Pending. ANGIE Beverly
--- NOTE | 2019-04-18 11:58 | PC.NURSE ---
PICC line inserted to VERONICA by Hilary nurse, patient tolerated well, and ok to use per DI nurse. Vancomycin started late as ordered due to no IV access prior to PICC placement. Spoke with wound clinical psychology professor, to assist with replacing wound vac dressing this afternoon. The wound vac rep and wound care plan to bring supplies to assist with changing the dressing this afternoon. Call light within reach, continue to follow.
--- NOTE | 2019-04-18 13:19 | P.PN_ITS ---
Subjective Subjective Date Patient Seen: 04/18/19 Time Patient Seen: 13:19 Interval history: David Givens is a 59-year-old male with a past medical history significant for poorly controlled diabetes mellitus type 2, insulin using, with complication of polyneuropathy, Charcot joint, and chronic left foot diabetic ulcer with osteomyelitis of 1st metatarsal; COPD and restrictive lung disease, and current everyday smoker who was a direct admission for IV antibiotic tr eatment of his chronic left foot osteomyelitis. The patient is resting in bed comfortably. He had a new PICC line placed today. He denies any other complaints including fever, chills, foot pain, swelling, redness, nausea, vomiting, chest pain, shortness of breath. Patient is mainly here as his insurance denied outpatient daptomycin. Currently working on prior authorization for daptomycin with insurance company. Initial form submitted today. If approved, he could theoretically be discharged to resume outpatient antibiotic therapy. Exam Vital Signs (past 8 hours): - 04/18/19 08:00 Temperature 97.7 F Pulse Rate 100 H Respiratory Rate 20 Blood Pressure 135/95 H Pulse Oximetry 96 Oxygen Delivery Method Room Air Oxygen Flow Rate 0 Narrative Exam Narrative: General: Older gentleman lying in bed and in no acute distress, appears older than stated age, well-developed, well-nourished, appropriately interactive. HEENT: Normocephalic, atraumatic. External ears without defect. Pupils equal, round, and reactive to light. Anicteric sclerae, moist conjunctivae, and no lid lag. Oropharynx free of erythema and cobble stoning with moist mucosa. Poor dentition. Neck: Supple with full range of motion. No lymphadenopathy or thyromegaly. Cardiovascular: Regular rate and rhythm without murmurs, rubs, or gallops appreciated. Pulmonary: Clear to auscultation bilaterally without crackles, wheezes, or rhonchi. Normal respiratory effort with no use of accessory muscles. Abdomen: Soft, bowel sounds present, nontender, nondistended. No hepatosplenomegaly or masses appreciated. Extremities: No clubbing or cyanosis. Left foot with dressing in place C/D/I and wound VAC with dark drainage. Skin: Dry eczematous skin with scattered excoriations throughout upper and lower extremities, L arm > R arm. Neurological: Cranial nerves grossly intact. Psychiatric: Normal mood and affect. Alert and oriented to person, place, and time. Objective Labs Result Diagrams: 04/16/19 16:54 04/16/19 16:54 Labs: Laboratory Results - last 24 hr 04/17/19 17:51 Vancomycin Trough 10.8 Assessment & Plan Assessment & Plan narrative: David Givens is a 59-year-old male with a past medical history significant for poorly controlled diabetes mellitus type 2, insulin using, with complication of polyneuropathy, Charcot joint, and chronic left foot diabetic ulcer with osteomyelitis of 1st metatarsal; COPD and restrictive lung disease, and current everyday smoker who was a direct admission for IV antibiotic treatment of his chronic left foot osteomyelitis. 1. Chronic left foot osteomyelitis, secondary to non-healing diabetic ulcer, present on admission. Active. -Last dose of outpatient IV antibiotics was on 04/14/2019. He missed a dose on 04/13/2019 as the patient's insurance would no longer cover daptomycin. Patient was admitted for IV antibiotics with possible anticipated length of stay 4 weeks if he is unable to get authorization. -Blood cultures x2 have no growth. -Last CRP was 0.9 on 04/14/2019 which is marked improvement from 03/29/2019 and 04/07/2019. -Continue vancomycin with dosing per pharmacist to treat MRSA and was given ertapenem on admission. Previous cultures sensitive to ceftriaxone and will narrow back to ceftriaxone starting tomorrow. If daptomycin is approved he can be discharged again. -Continue wound VAC and wound care per wound care clinic for which a wound consult has been placed. -Continue hydrocortisone 2.5% cream twice a day to left ankle inflamed skin which wound care had recommended outpatient. 2. Diabetes mellitus type 2 with polyneuropathy and Charcot foot, insulin using, poorly controlled and chronic, present on admission. Stable. -Hemoglobin A1c 12.0% 02/2019. Repeat hemoglobin A1c pending. -Continue home Lantus 50 units twice daily and metformin 1000 mg twice daily. -Continue blood glucose checks and medium dose correctional insulin. -Continue carbohydrate consistent diet. 3. Tobacco dependence, chronic, present on admission. Stable. -Continue nicotine patch 21 mg daily for nicotine withdrawal. 4. COPD, present on admission. Stable. -Does not represent acute COPD exacerbation. -Continue home albuterol inhaler as needed for shortness of breath or wheezing. Patient may keep inhaler at bedside for patient to self administer. 5. Acute atopic dermatitis of bilateral arms, present on admission. Stable. -Possibly associated with previous PICC line dressing, however, the patient states he has had several PICC lines before and never had this reaction. -Continue hydrocortisone cream twice daily, A&D ointment twice daily for dry skin, Benadryl 25 mg every 6 hours as needed for itching, and Vistaril 25 mg 3 times daily as needed for itching. -New R arm PICC line placed today. 6. Tinea cruris, chronic, present on admission. Stable. -Continue nystatin cream applied to groin bilaterally. Code status: Full code VTE prophylaxis: SQ Enoxaparin Disposition: Patient requires 4 weeks of IV antibiotic (due to end 05/12) and potentially may require hospitalization for that extended time versus step-down at a swing bed or [place] [facility] facility. Alternatively provider and staff working with insurance company to see if authorization can be approved for this patient for daptomycin.
--- NOTE | 2019-04-18 14:17 | CM.DPNOTE ---
DCP/continued: Received call back from Ashley at [facility] (swing bed) # [phone] she reports that they will submit request for authorization for completion of IV abx. In addition, to that JYOTI/Earnestine and Dr. Benson submitted authorization for medication authorization. Depending on which [facility] will approve will determine disposition. P: Pending. ANGIE Beverly
--- NOTE | 2019-04-18 15:12 | DIET.PN ---
Dietary Progress Note Assessment: Mr Givens is a 59-year-old male with a past medical history significant for poorly controlled diabetes mellitus type 2, insulin using, with complication of polyneuropathy, Charcot joint, and chronic left foot diabetic ulcer with osteomyelitis of 1st metatarsal; COPD and restrictive lung disease, and current everyday smoker who was a direct admission for IV antibiotic treatment of his chronic left foot osteomyelitis. The patient is resting in bed comfortably. He had a new PICC line placed today. He denies any other complaints including fever, chills, foot pain, swelling, redness, nausea, vomiting, chest pain, shortness of breath. HT: WT: UBW: BMI: Labs: MNA: Evaristo: Nutrition Diagnosis: Interventions: Diet Order: EER: Monitoring/Evaluations:
--- NOTE | 2019-04-18 15:12 | DIET.PN ---
Dietary Progress Note Assessment: Mr. Givens is a 59-year-old male with a past medical history significant for poorly controlled diabetes mellitus type 2 on insulin, with complication of polyneuropathy, Charcot joint, and chronic left foot diabetic ulcer with osteomyelitis; COPD and restrictive lung disease, and current everyday smoker. He was resting in bed during my assessment. He denies nausea, vomiting, or change in appetite. He reports BG usually ranges in the mid 200's. He does not follow any dietary restrictions and reports his diet is garbage as he is homeless and purchases food with food stamps and food [employer]. HT: 182.88cm WT: 112.5kg BMI: 33.6 Labs: a1c: 12.4 Glucose: 425. 112, 117 MNA: 8 Evaristo: 18 Nutrition Diagnosis: Altered nutrition related laboratory values r/t endocrine dysfunction aeb increased plasma glucose and a1c levels, inadequate blood glucose control, dx of diabetes, limited access to appropriate food choices. Interventions: 1. Discussed importance of glucose control in wound healing. Provided information on carb consistent diet. Patient with understanding but reports challenges with compliance related to living situation. 2. Recommended patient incorporate Emil for wound healing. Pt is not interested. Diet Order: CCD (2) small EER: 2300 ned @ 30 ned/kg IBW for weight loss; 100-115 g pro @ 1.3-1.5 g/kg IBW (high pro for wound healing) Monitoring/Evaluations: weight, PO's, need for further education
[2019-04-18 15:28] VITALS: BP 141/90; PULSE 110; RESP 95; TEMP 36.3; O2SAT 95
--- NOTE | 2019-04-18 15:43 | PC.NURSE ---
Wound vac dressing changed under guidance of wound vac reps, and switched to hospital wound vac equipment and taken off home wound vac equipment. Patient tolerated well. Denies pain. New PICC line to right upper arm remains in place and intact. Urinal and call light within reach.
[2019-04-18 16:19] LABS: Estimated Glomerular Filt Rate > 60.0 mL/min (>60)
[2019-04-18] MEDS: INSULIN ASPART 100 UNIT/ML INSULN PEN SUBCUT (17:14)
[2019-04-18] MEDS: CEFTRIAXONE 1 GM/50 ML FROZ.PIGGY IV (17:20)
[2019-04-18] MEDS: VANCOMYCIN 1,250 MG in SODIUM CHLORIDE 0.9% 250 ML IV (20:23)
[2019-04-18] MEDS: NYSTATIN CREAM 30 GM 1 APPLIC TOP (20:23)
[2019-04-19] MEDS: VANCOMYCIN 1,250 MG in SODIUM CHLORIDE 0.9% 250 ML IV ×3 (03:51→21:48)
[2019-04-19] MEDS: diphenhydrAMINE 25 MG TABLET PO ×2 (05:53→17:24)
[2019-04-19 07:35] VITALS: BP 137/80; PULSE 94; RESP 16; TEMP 37.3; O2SAT 94
[2019-04-19] MEDS: FLUTICASONE 120 SPRAY/16 GM SPRAY.SUSP NASAL ×2 (10:02→21:33)
[2019-04-19] MEDS: ENOXAPARIN 40 MG/0.4 ML SYRINGE SUBCUT (10:02)
[2019-04-19] MEDS: hydrOXYzine pamoate 25 MG CAPSULE PO (10:03)
[2019-04-19] MEDS: METFORMIN HCL 500 MG TABLET 1000 MG PO ×2 (10:03→17:24)
[2019-04-19] MEDS: INSULIN GLARGINE 100 UNIT/ML 3ML PEN 50 UNIT SUBCUT ×2 (10:04→21:31)
[2019-04-19] MEDS: NICOTINE 21 MG PATCH TOP (10:04)
[2019-04-19] MEDS: NYSTATIN CREAM 30 GM 1 APPLIC TOP ×2 (10:04→21:44)
[2019-04-19 11:42] VITALS: BP 133/95; PULSE 101; RESP 16; TEMP 36.9; O2SAT 94
--- NOTE | 2019-04-19 13:41 | P.DS_ITS ---
History of Present Illness History of Present Illness Date Patient Seen: 04/19/19 Time Patient Seen: 13:49 Chief complaint: LT Foot Osteomylitis Narrative: Per Dr. 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 Patient's care is complicated by homelessness although it appears he has been co mpliant with outpatient follow-up and treatments. He was last admitted to [facility] from March 29, 2019 to April 02, 2019 for treatment of left foot abscess and osteomyelitis. He is well known to Dr. Weems forefoot ortho and Dr. Nieves for Infectious Disease. The plan was for him to get 6 weeks of outpatient IV antibiotic in hopes of sparing him an amputation. He was discharged on daptomycin and Rocephin based on positive blood cultures for MRSA and Proteus bacteria on 03/28/2019 and 03/29/2019. His left arm PICC line had to be removed due to severe inflammation of the skin which was causing him to pull at the PICC line. Also the main reason he is now admitted is because his insurance is not authorizing daptomycin since it is non formulary. His primary care provider Dr. Morales had called me yesterday to discuss admission and we decided to bring patient in for antibiotic management. He will require 4 weeks of inpatient treatment to complete 6 weeks of IV therapy. Patient also has been going to wound care 3 times a day for wound VAC care. He notes that about a week ago an old ulcer area reopened on plantar surface of his left foot. Wound care has been monitoring and managing this as well. Patient denies any new symptoms including fevers, chills, cough. Discharge Providers Provider Date of admission: 04/16/19 16:38 Discharge Date: 04/19/19 Primary care physician: Madeline Morales DO Consults: 04/16/19 17:38 Consult to Wound Care Routine Comment: Consulting Provider: [facility] 04/16/19 18:13 Consult to Dietitian, Adult Routine Comment: Reason For Exam: assessed at risk 04/17/19 12:54 Consult to Physical Therapy Evaluate & Treat Comment: Physician Instructions: Evaluate and Treat Discharge provider: Dejuan Benson DO Summary Hospital Course Discharge Diagnosis: 1. Chronic left foot osteomyelitis, secondary to non- healing diabetic ulcer, present on admission. Active. 2. Diabetes mellitus type 2 with polyneuropathy and Charcot foot, insulin using, poorly controlled and chronic, present on admission. Stable. 3. Tobacco dependence, chronic, present on admission. Stable. 4. COPD, present on admission. Stable. 5. Acute atopic dermatitis of bilateral arms, present on admission. Stable. 6. Tinea cruris, chronic, present on admission. Stable. Hospital Course: David Givens is a 59-year-old male with a past medical history significant for poorly controlled diabetes mellitus type 2, insulin using, with complication of polyneuropathy, Charcot joint, and chronic left foot diabetic ulcer with osteomyelitis of 1st metatarsal; COPD and restrictive lung disease, and current everyday smoker who was a direct admission for IV antibiotic treatment of his chronic left foot osteomyelitis. 1. Chronic left foot osteomyelitis, secondary to non-healing diabetic ulcer, present on admission. Active. -He missed a dose on 04/13/2019 as the patient's insurance would no longer cover daptomycin. Patient was admitted for IV antibiotics with possible anticipated length of stay 4 weeks (until 05/12/2018) if he is unable to get authorization for daptomycin. Daptomycin was selected given the patient's complex social circumstances and homelessness. He was to go for outpatient ceftriaxone and daptomycin once daily, however insurance did not cover the daptomycin any more. He will continue on ceftriaxone and vancomycin while at a swing bed. While admitted authorization was attempted for daptomycin through his insurance company. If this is approved he will likely be able to complete outpatient therapy until 05/12/2019. -Blood cultures x2 have no growth. -Last CRP was 0.9 on 04/14/2019 which is marked improvement from 03/29/2019 and 04/07/2019. -Continue vancomycin with dosing per pharmacist to treat MRSA and was given ertapenem on admission. Previous cultures sensitive to ceftriaxone and was narrowed back to ceftriaxone. -current antibiotic regimen his vancomycin 1.25 g q.8 hours, and ceftriaxone 1 g Q 24 hours. -Continue wound VAC and wound care per wound care clinic for which a wound consult has been placed. -Continue hydrocortisone 2.5% cream twice a day to left ankle inflamed skin which wound care had recommended outpatient. 2. Diabetes mellitus type 2 with polyneuropathy and Charcot foot, insulin using, poorly controlled and chronic, present on admission. Stable. -Hemoglobin A1c 12.0% 02/2019. -Continue home Lantus 50 units twice daily and metformin 1000 mg twice daily. -Continue blood glucose checks and medium dose correctional insulin. -Continue carbohydrate consistent diet. 3. Tobacco dependence, chronic, present on admission. Stable. -Continue nicotine patch 21 mg daily for nicotine withdrawal. 4. COPD, present on admission. Stable. -Does not represent acute COPD exacerbation. -Continue home albuterol inhaler as needed for shortness of breath or wheezing. Patient may keep inhaler at bedside for patient to self administer. 5. Acute atopic dermatitis of bilateral arms, present on admission. Stable. -Possibly associated with previous PICC line dressing, however, the patient states he has had several PICC lines before and never had this reaction. -Continue hydrocortisone cream twice daily, A&D ointment twice daily for dry skin, Benadryl 25 mg every 6 hours as needed for itching, and Vistaril 25 mg 3 times daily as needed for itching. -New R arm PICC line placed while inpatient. 6. Tinea cruris, chronic, present on admission. Stable. -Continue nystatin cream applied to groin bilaterally. Code status: Full code VTE prophylaxis: SQ Enoxaparin Disposition: Patient requires 4 weeks of IV antibiotic (due to end 05/12/2019) and potentially will transfer to a swing bed today. Alternatively authorization request was sent for daptomycin coverage which is still pending.. Time Spent with Patient Time spent: Greater than 30 minutes Exam Vital Signs (past 8 hours): - 04/19/19 07:35 04/19/19 11:42 Temperature 99.1 F 98.4 F Pulse Rate 94 H 101 H Respiratory Rate 16 16 Blood Pressure 137/80 133/95 H Pulse Oximetry 94 94 Oxygen Delivery Method Room Air Oxygen Flow Rate 0 Narrative Exam Narrative: General: Older gentleman lying in bed and in no acute distress, appears older than stated age, well-developed, well-nourished, appropriately interactive. HEENT: Normocephalic, atraumatic. External ears without defect. Pupils equal, round, and reactive to light. Anicteric sclerae, moist conjunctivae, and no lid lag. Oropharynx free of erythema and cobble stoning with moist mucosa. Poor dentition. Neck: Supple with full range of motion. No lymphadenopathy or thyromegaly. Cardiovascular: Regular rate and rhythm without murmurs, rubs, or gallops appreciated. Pulmonary: Clear to auscultation bilaterally without crackles, wheezes, or rhonchi. Normal respiratory effort with no use of accessory muscles. Abdomen: Soft, bowel sounds present, nontender, nondistended. No hepatosplen omegaly or masses appreciated. Extremities: No clubbing or cyanosis. Left foot with dressing in place C/D/I and wound VAC with dark drainage. Skin: Dry eczematous skin with scattered excoriations throughout upper and lower extremities, L arm > R arm. Neurological: Cranial nerves grossly intact. Psychiatric: Normal mood and affect. Alert and oriented to person, place, and time. Objective Labs Result Diagrams: 04/16/19 16:54 04/18/19 15:53 Labs: Laboratory Results - last 24 hr 04/18/19 15:53 Creatinine 1.00 Estimated GFR > 60.0 Discharge Plan Discharge Plan Patient Disposition: Swing Bed/[facility] Other facility: [facility] Discharge comment: David Givens is a 59-year-old male with a past medical history significant for poorly controlled diabetes mellitus type 2, insulin using, with complication of polyneuropathy, Charcot joint, and chronic left foot diabetic ulcer with osteomyelitis of 1st metatarsal; COPD and restrictive lung disease, and current everyday smoker who was a direct admission for IV antibiotic treatment of his chronic left foot osteomyelitis. 1. Chronic left foot osteomyelitis, secondary to non-healing diabetic ulcer, present on admission. Active. -He missed a dose on 04/13/2019 as the patient's insurance would no longer cover daptomycin. Patient was admitted for IV antibiotics with possible anticipated length of stay 4 weeks (until 05/12/2018) if he is unable to get authorization for daptomycin. Daptomycin was selected given the patient's complex social circumstances and homelessness. He was to go for outpatient ceftriaxone and daptomycin once daily, however insurance did not cover the daptomycin any more. He will continue on ceftriaxone and vancomycin while at a swing bed. While admitted authorization was attempted for daptomycin through his insurance company. If this is approved he will likely be able to complete outpatient therapy until 05/12/2019. -Blood cultures x2 have no growth. -Last CRP was 0.9 on 04/14/2019 which is marked improvement from 03/29/2019 and 04/07/2019. -Continue vancomycin with dosing per pharmacist to treat MRSA and was given ertapenem on admission. Previous cultures sensitive to ceftriaxone and was narrowed back to ceftriaxone. -current antibiotic regimen his vancomycin 1.25 g q.8 hours, and ceftriaxone 1 g Q 24 hours. -Continue wound VAC and wound care per wound care clinic for which a wound consult has been placed. -Continue hydrocortisone 2.5% cream twice a day to left ankle inflamed skin which wound care had recommended outpatient. 2. Diabetes mellitus type 2 with polyneuropathy and Charcot foot, insulin using, poorly controlled and chronic, present on admission. Stable. -Hemoglobin A1c 12.0% 02/2019. -Continue home Lantus 50 units twice daily and metformin 1000 mg twice daily. -Continue blood glucose checks and medium dose correctional insulin. -Continue carbohydrate consistent diet. 3. Tobacco dependence, chronic, present on admission. Stable. -Continue nicotine patch 21 mg daily for nicotine withdrawal. 4. COPD, present on admission. Stable. -Does not represent acute COPD exacerbation. -Continue home albuterol inhaler as needed for shortness of breath or wheezing. Patient may keep inhaler at bedside for patient to self administer. 5. Acute atopic dermatitis of bilateral arms, present on admission. Stable. -Possibly associated with previous PICC line dressing, however, the patient states he has had several PICC lines before and never had this reaction. -Continue hydrocortisone cream twice daily, A&D ointment twice daily for dry s kin, Benadryl 25 mg every 6 hours as needed for itching, and Vistaril 25 mg 3 times daily as needed for itching. -New R arm PICC line placed while inpatient. 6. Tinea cruris, chronic, present on admission. Stable. -Continue nystatin cream applied to groin bilaterally. Code status: Full code VTE prophylaxis: SQ Enoxaparin Disposition: Patient requires 4 weeks of IV antibiotic (due to end 05/12/2019) and potentially will transfer to a swing bed today. Alternatively authorization request was sent for daptomycin coverage which is still pending. Discharge orders & Medications Discharge Orders: Discharge (Order); Ordered 04/19/19 Ordered By: Dejuan Benson Prescriptions: New vits A and D-white pet-lanolin Ointment 1 applic topical BID 30 Days Qty: 1 RF: 0 vancomycin 1.25 gram recon soln 1.25 gram IV Q8H 24 Days Qty: 1 RF: 0 Continued fluticasone propionate [Allergy Relief (fluticasone)] 50 mcg/actuation spray,suspension 1 spray NASAL BID Qty: 15.8 RF: 11 hydrocortisone 2.5 % cream 1 applictn TOP BID PRN (Reason: itching) Qty: 20 RF: 0 metformin 1,000 mg tablet 1,000 mg PO BID Qty: 180 RF: 3 Lantus Solostar U-100 Insulin 100 unit/mL (3 mL) insulin pen 50 unit subcut BID 30 Days Qty: 30 RF: 6 (DME) pen needle, diabetic [Lite Touch Insulin Pen Rowley] 31 gauge x 1/4 needle See Rx Instructions .ROUTE .MEDSUPPLY Qty: 60 RF: 5 (DME) lancets [TRUEplus Lancets] 30 gauge misc See Dose Instructions .ROUTE .MEDSUPPLY Qty: 100 RF: 11 hydroxyzine HCl 25 mg tablet 25 mg PO TID PRN (Reason: itching) Qty: 30 RF: 3 melatonin 10 mg Tablet 10 mg PO BEDTIME PRN (Reason: Insomnia) Qty: 0 RF: 0 albuterol sulfate 90 mcg/actuation HFA aerosol inhaler 1 - 2 puff INHALATION Q4-6H PRN (Reason: shortness of breath or wheezing) RF: 0 ceftriaxone in dextrose,iso-os 2 gram/50 mL Piggyback 2 gram IV Q24H 41 Days Qty: 2050 RF: 0 sodium chloride 0.9 % (flush) [Normal Saline Flush] Syringe 10 ml IV PRN PRN (Reason: Flush) 41 Days Qty: 82 RF: 0 nystatin 100,000 unit/gram Cream 1 applic TOPICAL BID RF: 0 Discontinued daptomycin 500 mg recon soln 900 mg IV Q24H 41 Days Qty: 41 RF: 0 Follow up/Referrals: Madeline Morales DO [Primary Care Provider] - Discharge Health Status Health Concerns: Osteomyelitis Diet/Activity/Treatments Diet: Diet as Tolerated and Carb-consistent/Diabetic Food texture: Regular Activity: As tolerated Discharge Data Primary Care Provider: Madeline Morales
--- NOTE | 2019-04-19 16:00 | CM.DANOTE ---
DCP/Continued: Received call from Ashley at [facility] (swing bed). She reports that they did get authorization for patient to come there to complete IV abx course. Met with patient and he is aware and agreeable. Dr. Benson to write orders and discuss with infectious disease. D/C anticipated for tomorrow 2. Updated clinical faxed to [facility] for review. Patient has w/c in room and it is not anticipated that patient will need BLS transport. Wound vac to be changed here tomorrow prior to d/c. RN updated. Will attempt to obtain wound care notes from wound care. P: [facility] tomorrow for continued IV abx. ANGIE Beverly
--- NOTE | 2019-04-19 17:00 | PT-IP ANOTE ---
Pt contacted for PT evaluation (third day), but he states he has no PT needs and is not interested in participating. Per discussion with hospitalist, PT will discharge this order.
[2019-04-19] MEDS: INSULIN ASPART 100 UNIT/ML INSULN PEN SUBCUT (17:02)
[2019-04-19 17:06] VITALS: BP 141/90; PULSE 92; RESP 18; TEMP 36.5; O2SAT 94
--- NOTE | 2019-04-19 17:06 | P.PN_ITS ---
Subjective Subjective Date Patient Seen: 04/19/19 Time Patient Seen: 17:07 Interval history: 59-year-old male diabetic with left Charcot foot with ulceration osteomyelitis. Had extensive care with Orthopedics as well as [facility]. Two weeks ago he recurrent infection with bacteremia. He was hospitalized and then discharged with a PICC line for outpatient daptomycin antibiotics. Unfortunately his insurance has decided not to cover this for him. Therefore he has been hospitalized with goal of medially getting outpatient coverage versus [place] [facility] placement for continued IV antibiotics for the course of his treatment. He continues to get wound VAC changes and wound care with the wound care center. His acute cellulitis has r esolved. No signs of any ongoing abscess. No indications for surgery currently. Patient is resting comfortably in his bed he is in good spirits today. He tells me that he thinks he may be going to [place] to a [place] [facility] center as soon as tomorrow. Exam Vital Signs (past 8 hours): - 04/19/19 11:42 Temperature 98.4 F Pulse Rate 101 H Respiratory Rate 16 Blood Pressure 133/95 H Pulse Oximetry 94 Oxygen Delivery Method Room Air Oxygen Flow Rate 0 Narrative Exam Narrative: Alert and oriented no acute distress pleasant and cooperative. Respiratory exam unlabored on room air. Musculoskeletal exam. Diffusely dry skin. Left ankle and foot are evaluated. Wound VAC in place. Outer wrap removed down to the level of the wound VAC. No cellulitis. No malodor. Unchanged Charcot deformity. No fluctuance. Calf is soft. Objective Labs Result Diagrams: 04/16/19 16:54 04/18/19 15:53 Assessment & Plan Assessment & Plan narrative: Uncontrolled diabetes left Charcot foot osteomyelitis recent bacteremia. Patient is indicated for continued IV antibiotics for his recent bacteremia and osteomyelitis. No current surgical indications. Did discuss with uncontrolled diabetes neuropathy that recurrent or worsening infection is a continued risk for limb loss. Up until this point the patient was progressing well on an outpatient basis with the wound care treatments and the goal is to finish his current antibiotics and get back to his previous outpatient wound care status and continue limb salvage. The patient does not have a socioeconomic/psychologic environment appropriate for spatial frame reconstruction. If the patient has worsening infection that extends more proximally he may require amputation some point in the future. Postsurgical care for amputation would also require extended [place] [facility] stay. At this point continue antibiotics and wound care. Once patient finishes his remaining [address] [facility],he will make an appointment to see Dr. [facility] on an outpatient basis for a follow- up. Patient understands and agrees with this plan Time Spent With Patient Time with patient: less than 15 minutes
[2019-04-19] MEDS: CEFTRIAXONE 1 GM/50 ML FROZ.PIGGY IV (17:23)
[2019-04-19 21:07] LABS: Vancomycin Trough 16.7 ug/mL (10-20)
[2019-04-19] MEDS: [UNRECOGNIZED DRUG - OTHER] TOP (21:44)
[2019-04-19] MEDS: SODIUM CHLORIDE 0.9% FLUSH 10 ML IV (21:45)
[2019-04-19] MEDS: VANCOMYCIN TROUGH 1 REQUEST MISC (22:02)
[2019-04-19] MEDS: diphenhydrAMINE 50 MG/ML VIAL IV (23:29)
--- NOTE | 2019-04-19 23:37 | PC.NURSE ---
this patient has been stable all shift . He has become agitated and demanding most shift because of a situation of his truck being in hospital parking lot without the ability to park it anywhere else, he is homeless and fear his truck will be towed. spoke with pt and security about his concerns. Ramos from security has spoke with pt that he will have at least 3 day parking pass in [facility] parking lot and this will be disussed tatiana with posiblity of up to 30 days. He is not happy with this solution and thinks we should not be messing with him pt is yelling and cursing and at times throwing stuff off his table and jerking his body around as to be throwing a tantrum. this patient also c./o of itching and has rec'd benedryl po, vistaril po and finally relief with benedryl 5o ivp for severe itching all over body. FRONT OFFICE SPECIALIST pasucal gant notified. wound dr here to dress and evaluate wound care to left foot. woundvac in place denies pain.
--- NOTE | 2019-04-20 00:18 | PC.NURSE ---
Pt. upset agitated, throwing things in his room, will assess when he calm down.
[2019-04-20 03:50] VITALS: BP 137/86; PULSE 88; RESP 16; TEMP 36.8; O2SAT 92
[2019-04-20] MEDS: VANCOMYCIN 1,250 MG in SODIUM CHLORIDE 0.9% 250 ML IV (04:07)
[2019-04-20] MEDS: SODIUM CHLORIDE 0.9% FLUSH 10 ML IV ×2 (04:07→09:26)
[2019-04-20 08:00] VITALS: BP 117/77; PULSE 86; RESP 20; TEMP 36.9; O2SAT 95
[2019-04-20] MEDS: INSULIN GLARGINE 100 UNIT/ML 3ML PEN 50 UNIT SUBCUT (08:52)
[2019-04-20] MEDS: ENOXAPARIN 40 MG/0.4 ML SYRINGE SUBCUT (08:53)
[2019-04-20] MEDS: NICOTINE 21 MG PATCH TOP (08:53)
[2019-04-20] MEDS: FLUTICASONE 120 SPRAY/16 GM SPRAY.SUSP NASAL (08:53)
[2019-04-20 09:55] VITALS: RESP 20
[2019-04-20] MEDS: INSULIN ASPART 100 UNIT/ML INSULN PEN SUBCUT (12:32)
--- NOTE | 2019-04-20 13:03 | CM.DPC ---
Addendum entered by Kely Funes 04/20/19 14:33: DCP/continued: Left vm with Claritza Derek at [facility] informing her of patient's d/c disposition. KJS Original Note: DCP/continued: Received call this AM from Tameka at [facility] indicating that patient okay to d/c to facility today. [facility] requesting provider to provider report. Dr. Bautista given the number to call [facility] accepting provider. RN given number to call report # [phone]. Patient going to Room#15 bed #1. [employer] attempted to call [facility] for transport. Unfortunately, they are unable to accommodate due to patient's acute care need. Patient with MRSA, contact precautions, and wound vac. Therefore, medical necessity completed for non-urgent BLS transport. Form signed by Dr. Bautista. Orders faxed to [facility]. Patient aware and agreeable to plan. P: [facility] today via non urgent BLS transport. Total time spent approximately 90 minutes with coordination. ANGIE Beverly
--- NOTE | 2019-04-20 15:22 | PC.NURSE ---
Transfer: Pt transfered to [facility] via amb. Pt is unhappy about having to be so far aware and away from his vehicle. He did go. Report called to Renea, admit nurse at facility. Reviewed hospital course. Pt has some challenging behaviors and uses obscenities at times. Discussed approaches which work when working with pt. He is also concerned about leaving his car here. The car keys were picked up by engineering dept and his truck will be moved to a safe location on the property here at [place] and engineering will keep the keys. He understands how to cook pickled meat his truck when he is released from facility. Questions answered. Pt transfered to [facility], no further concerns expressed.
== END 2019-04-20 13:20 | disposition swing bed (61) | DRG 344 ==
PROVIDERS: Internal Medicine; Admitting Provider Internal Medicine; PCP Family Medicine; Referring Provider Internal Medicine; Visit Provider Internal Medicine
DX: E11.69 Type 2 diabetes mellitus with other specified complication (principal); M86.672 Other chronic osteomyelitis, left ankle and foot; B95.62 Methicillin resistant Staphylococcus aureus infection as the cause of diseases classified elsewhere; A52.16 Charcot's arthropathy (tabetic); E11.42 Type 2 diabetes mellitus with diabetic polyneuropathy; E11.621 Type 2 diabetes mellitus with foot ulcer; E11.65 Type 2 diabetes mellitus with hyperglycemia; L97.429 Non-pressure chronic ulcer of left heel and midfoot with unspecified severity; L30.9 Dermatitis, unspecified; Z59.0 Homelessness; B35.6 Tinea cruris; J44.9 Chronic obstructive pulmonary disease, unspecified; F17.210 Nicotine dependence, cigarettes, uncomplicated; Z79.4 Long term (current) use of insulin; L97.524 Non-pressure chronic ulcer of other part of left foot with necrosis of bone; L97.526 Non-pressure chronic ulcer of other part of left foot with bone involvement without evidence of necrosis; R60.0 Localized edema
CPT/HCPCS: 36415; 36569; 80048; 80202; 82565; 82962; 83036; 85025; 87040; 94760; 97605; J1200; J1335; J1650

== ENCOUNTER → 2019-04-25 14:14 | Outpatient (CLI) | payer OTHER, MEDICAID, SELFPAY ==
[2019-04-16 17:51] VITALS: BMI 33.6
== END ==
PROVIDERS: PCP Family Medicine; Referring Provider Family Medicine; Visit Provider Family Medicine
DX: E11.621 Type 2 diabetes mellitus with foot ulcer (principal); L97.524 Non-pressure chronic ulcer of other part of left foot with necrosis of bone; L97.521 Non-pressure chronic ulcer of other part of left foot limited to breakdown of skin; M86.672 Other chronic osteomyelitis, left ankle and foot; Z79.4 Long term (current) use of insulin; Z72.0 Tobacco use
CPT/HCPCS: 11042; 11043; 11044

== ENCOUNTER → 2019-05-02 09:38 | Outpatient (CLI) | payer OTHER, MEDICAID, SELFPAY ==
[2019-04-16 17:51] VITALS: BMI 33.6
== END ==
PROVIDERS: PCP Family Medicine; Referring Provider Family Medicine; Visit Provider Family Medicine
DX: E11.621 Type 2 diabetes mellitus with foot ulcer (principal); M86.672 Other chronic osteomyelitis, left ankle and foot; L97.526 Non-pressure chronic ulcer of other part of left foot with bone involvement without evidence of necrosis; L97.521 Non-pressure chronic ulcer of other part of left foot limited to breakdown of skin; R60.0 Localized edema; Z79.4 Long term (current) use of insulin
CPT/HCPCS: 11042; 11043; 99213

== ENCOUNTER → 2019-05-09 09:12 | Outpatient (CLI) | payer OTHER, MEDICAID, SELFPAY ==
[2019-04-16 17:51] VITALS: BMI 33.6
== END ==
PROVIDERS: PCP Family Medicine; Referring Provider Orthopaedic Surgery Foot and Ankle Surgery; Visit Provider Family Medicine
DX: E11.621 Type 2 diabetes mellitus with foot ulcer (principal); L97.523 Non-pressure chronic ulcer of other part of left foot with necrosis of muscle; L97.521 Non-pressure chronic ulcer of other part of left foot limited to breakdown of skin; M86.672 Other chronic osteomyelitis, left ankle and foot; Z79.4 Long term (current) use of insulin; Z72.0 Tobacco use
CPT/HCPCS: 11042; 11043

== ENCOUNTER → 2019-05-18 09:12 | Outpatient (CLI) | payer OTHER, MEDICAID, SELFPAY ==
[2019-05-18 12:14] LABS: Add Manual Diff / Slide Review NO; Basophils Absolute Auto 0 /uL (0-100); Basophils Percent Auto 0.6 % (0-2); Eosinophils Absolute Auto 400 /uL (0-450); Eosinophils Percent Auto 5.9 % (2-4); Hematocrit 38.4 % (41-53); Hemoglobin 13.1 g/dL (13.5-17.5); Lymphocytes Absolute Auto 1300 /uL (1100-4500); Lymphocytes Percent Auto 18.2 % (25-40); Mean Corpuscular Hemoglobin 29.2 PG (26-34); Mean Corpuscular Volume 86.1 fL (80-100); Monocytes Absolute Auto 500 /uL (0-900); Monocytes Percent Auto 6.9 % (3-14); Neutrophils Absolute Auto 4800 /uL (1500-7000); Neutrophils Percent Auto 68.4 % (50-75); Platelet Count 254 X10^3/uL (150-400); Red Blood Cell Count 4.46 X10^6/uL (4.5-5.9); Red Cell Distribution Width 16.2 % (11.6-14.8)
[2019-05-18 12:27] LABS: Erythrocyte Sedimentation Rate 57 MM/HR (0-15)
[2019-05-18 12:43] LABS: Alanine Aminotransferase 21 IU/L (<50); Albumin 3.8 g/dL (3.5-5.0); Albumin Globulin Ratio 1.2 (1.0-2.8); Alkaline Phosphatase 98 U/L (38-126); Aspartate Aminotransferase 17 IU/L (17-59); BUN Creatinine Ratio 31.7 (6-22); Bilirubin Total 0.3 mg/dL (0.2-1.3); Blood Urea Nitrogen 19 mg/dL (9-20); Calcium 9.6 mg/dL (8.4-10.2); Carbon Dioxide 26 mmol/L (22-32); Chloride 101 mmol/L (98-107); Estimated Glomerular Filt Rate > 60.0 mL/min (>60); Globulin 3.3 g/dL (1.7-4.1); Glucose 368 mg/dL (70-100); HEMOLYSIS < 15 (0-50); Potassium 4.4 mmol/L (3.4-5.1); Sodium 138 mmol/L (137-145); Total Protein 7.1 g/dL (6.3-8.2)
[2019-05-18 12:54] LABS: C-Reactive Protein Quant 14.4 mg/dL (<1.0)
== END ==
PROVIDERS: PCP Family Medicine; Referring Provider Family Medicine; Visit Provider Family Medicine
DX: E11.621 Type 2 diabetes mellitus with foot ulcer (principal); L97.523 Non-pressure chronic ulcer of other part of left foot with necrosis of muscle; L97.521 Non-pressure chronic ulcer of other part of left foot limited to breakdown of skin; M86.672 Other chronic osteomyelitis, left ankle and foot; M14.672 Charcot's joint, left ankle and foot; L03.116 Cellulitis of left lower limb; Z79.4 Long term (current) use of insulin
CPT/HCPCS: 11042; 11043; 36415; 80053; 85025; 85651; 86140; 87070; 87075; 87077; 87186; 87205; 99214

== ENCOUNTER → 2019-05-20 13:43 | Outpatient (CLI) | payer OTHER, MEDICAID, SELFPAY | PROVIDERS: PCP Family Medicine; Referring Provider Family Medicine; Visit Provider Family Medicine | DX: E11.621 Type 2 diabetes mellitus with foot ulcer (principal); L97.525 Non-pressure chronic ulcer of other part of left foot with muscle involvement without evidence of necrosis; L97.521 Non-pressure chronic ulcer of other part of left foot limited to breakdown of skin; M86.672 Other chronic osteomyelitis, left ankle and foot; B95.62 Methicillin resistant Staphylococcus aureus infection as the cause of diseases classified elsewhere; L03.116 Cellulitis of left lower limb; Z79.4 Long term (current) use of insulin; R60.0 Localized edema; L08.9 Local infection of the skin and subcutaneous tissue, unspecified | CPT/HCPCS: 11042; 11045; 36415; 85025; 85651; 86140; 99213 ==

== ENCOUNTER → 2019-05-20 14:47 | Outpatient (CLI) | payer OTHER, MEDICAID, SELFPAY ==
[2019-05-20 15:45] LABS: Add Manual Diff / Slide Review NO; Basophils Absolute Auto 0 /uL (0-100); Basophils Percent Auto 0.6 % (0-2); Eosinophils Absolute Auto 400 /uL (0-450); Eosinophils Percent Auto 5.3 % (2-4); Hematocrit 38.2 % (41-53); Hemoglobin 12.9 g/dL (13.5-17.5); Lymphocytes Absolute Auto 1600 /uL (1100-4500); Lymphocytes Percent Auto 22.9 % (25-40); Mean Corpuscular HGB Conc 33.7 % (30-36); Mean Corpuscular Hemoglobin 29.1 PG (26-34); Mean Corpuscular Volume 86.3 fL (80-100); Monocytes Absolute Auto 500 /uL (0-900); Monocytes Percent Auto 7.4 % (3-14); Neutrophils Absolute Auto 4600 /uL (1500-7000); Neutrophils Percent Auto 63.8 % (50-75); Platelet Count 275 X10^3/uL (150-400); Red Blood Cell Count 4.43 X10^6/uL (4.5-5.9); Red Cell Distribution Width 15.8 % (11.6-14.8); White Blood Cell Count 7.2 X10^3/uL (4.5-11.0)
[2019-05-20 15:55] LABS: C-Reactive Protein Quant 3.3 mg/dL (<1.0)
[2019-05-20 16:14] LABS: Erythrocyte Sedimentation Rate 36 MM/HR (0-15)
== END ==
PROVIDERS: PCP Family Medicine; Referring Provider Family Medicine; Visit Provider Family Medicine
DX: L08.9 Local infection of the skin and subcutaneous tissue, unspecified (principal)
CPT/HCPCS: 36415; 85025; 85651; 86140

== ENCOUNTER → 2019-05-23 09:48 | Outpatient (CLI) | payer OTHER, MEDICAID, SELFPAY | PROVIDERS: PCP Family Medicine; Referring Provider Family Medicine; Visit Provider Family Medicine | DX: E11.621 Type 2 diabetes mellitus with foot ulcer (principal); L97.523 Non-pressure chronic ulcer of other part of left foot with necrosis of muscle; L97.521 Non-pressure chronic ulcer of other part of left foot limited to breakdown of skin; M86.672 Other chronic osteomyelitis, left ankle and foot; Z79.4 Long term (current) use of insulin; Z72.0 Tobacco use; L03.116 Cellulitis of left lower limb; B95.62 Methicillin resistant Staphylococcus aureus infection as the cause of diseases classified elsewhere; R60.0 Localized edema | CPT/HCPCS: 99183; 99213; G0277 ==

== ENCOUNTER → 2019-05-24 08:49 | Outpatient (CLI) | payer OTHER, MEDICAID, SELFPAY | PROVIDERS: PCP Family Medicine; Referring Provider Family Medicine; Visit Provider Family Medicine | DX: E11.621 Type 2 diabetes mellitus with foot ulcer (principal); L97.523 Non-pressure chronic ulcer of other part of left foot with necrosis of muscle; L97.521 Non-pressure chronic ulcer of other part of left foot limited to breakdown of skin; M86.672 Other chronic osteomyelitis, left ankle and foot; Z79.4 Long term (current) use of insulin; B95.62 Methicillin resistant Staphylococcus aureus infection as the cause of diseases classified elsewhere | CPT/HCPCS: 99183; G0277 ==

== ENCOUNTER → 2019-05-25 10:13 | Outpatient (CLI) | payer OTHER, MEDICAID, SELFPAY | PROVIDERS: PCP Family Medicine; Referring Provider Family Medicine; Visit Provider Family Medicine | DX: E11.621 Type 2 diabetes mellitus with foot ulcer (principal); L97.523 Non-pressure chronic ulcer of other part of left foot with necrosis of muscle; L97.521 Non-pressure chronic ulcer of other part of left foot limited to breakdown of skin; M86.672 Other chronic osteomyelitis, left ankle and foot; Z79.4 Long term (current) use of insulin; Z72.0 Tobacco use; L03.116 Cellulitis of left lower limb; B95.62 Methicillin resistant Staphylococcus aureus infection as the cause of diseases classified elsewhere; L97.525 Non-pressure chronic ulcer of other part of left foot with muscle involvement without evidence of necrosis; R60.0 Localized edema | CPT/HCPCS: 99183; 99213; G0277 ==

== ENCOUNTER → 2019-05-26 09:28 | Outpatient (CLI) | payer OTHER, MEDICAID, SELFPAY | PROVIDERS: PCP Family Medicine; Referring Provider Family Medicine; Visit Provider Family Medicine | DX: E11.621 Type 2 diabetes mellitus with foot ulcer (principal); M86.672 Other chronic osteomyelitis, left ankle and foot; L97.523 Non-pressure chronic ulcer of other part of left foot with necrosis of muscle; L97.521 Non-pressure chronic ulcer of other part of left foot limited to breakdown of skin; L03.116 Cellulitis of left lower limb; B95.62 Methicillin resistant Staphylococcus aureus infection as the cause of diseases classified elsewhere; Z79.4 Long term (current) use of insulin | CPT/HCPCS: 99183; G0277 ==

== ENCOUNTER → 2019-05-27 08:32 | Outpatient (CLI) | payer OTHER, MEDICAID, SELFPAY | PROVIDERS: PCP Family Medicine; Referring Provider Family Medicine; Visit Provider Family Medicine | DX: E11.621 Type 2 diabetes mellitus with foot ulcer (principal); L97.523 Non-pressure chronic ulcer of other part of left foot with necrosis of muscle; L97.521 Non-pressure chronic ulcer of other part of left foot limited to breakdown of skin; M86.672 Other chronic osteomyelitis, left ankle and foot; Z79.4 Long term (current) use of insulin; L03.116 Cellulitis of left lower limb; B95.62 Methicillin resistant Staphylococcus aureus infection as the cause of diseases classified elsewhere | CPT/HCPCS: 11042; 11043; 97605; 99183; 99212; 99214; G0277 ==

== ENCOUNTER → 2019-05-30 10:35 | Outpatient (CLI) | payer OTHER, MEDICAID, SELFPAY | PROVIDERS: PCP Family Medicine; Referring Provider Family Medicine; Visit Provider Family Medicine | DX: E11.621 Type 2 diabetes mellitus with foot ulcer (principal); L97.523 Non-pressure chronic ulcer of other part of left foot with necrosis of muscle; L97.521 Non-pressure chronic ulcer of other part of left foot limited to breakdown of skin; M86.672 Other chronic osteomyelitis, left ankle and foot; Z79.4 Long term (current) use of insulin; Z72.0 Tobacco use; L03.116 Cellulitis of left lower limb; B95.62 Methicillin resistant Staphylococcus aureus infection as the cause of diseases classified elsewhere | CPT/HCPCS: 99183; G0277 ==

== ENCOUNTER → 2019-05-31 08:42 | Outpatient (CLI) | payer OTHER, MEDICAID, SELFPAY | PROVIDERS: PCP Family Medicine; Referring Provider Family Medicine; Visit Provider Family Medicine | DX: E11.621 Type 2 diabetes mellitus with foot ulcer (principal); L97.523 Non-pressure chronic ulcer of other part of left foot with necrosis of muscle; L97.521 Non-pressure chronic ulcer of other part of left foot limited to breakdown of skin; M86.672 Other chronic osteomyelitis, left ankle and foot; L03.116 Cellulitis of left lower limb; B95.62 Methicillin resistant Staphylococcus aureus infection as the cause of diseases classified elsewhere; Z79.4 Long term (current) use of insulin | CPT/HCPCS: 97605; 99183; G0277 ==

== ENCOUNTER → 2019-06-01 08:46 | Outpatient (CLI) | payer OTHER, MEDICAID, SELFPAY | PROVIDERS: PCP Family Medicine; Referring Provider Family Medicine; Visit Provider Family Medicine | DX: E11.621 Type 2 diabetes mellitus with foot ulcer (principal); L97.523 Non-pressure chronic ulcer of other part of left foot with necrosis of muscle; L97.521 Non-pressure chronic ulcer of other part of left foot limited to breakdown of skin; M86.672 Other chronic osteomyelitis, left ankle and foot; L03.116 Cellulitis of left lower limb; B95.62 Methicillin resistant Staphylococcus aureus infection as the cause of diseases classified elsewhere; Z79.4 Long term (current) use of insulin | CPT/HCPCS: 99183; G0277 ==

== ENCOUNTER → 2019-06-02 08:44 | Outpatient (CLI) | payer OTHER, MEDICAID, SELFPAY | PROVIDERS: PCP Family Medicine; Referring Provider Family Medicine; Visit Provider Family Medicine | DX: E11.621 Type 2 diabetes mellitus with foot ulcer (principal); L97.523 Non-pressure chronic ulcer of other part of left foot with necrosis of muscle; L97.521 Non-pressure chronic ulcer of other part of left foot limited to breakdown of skin; M86.672 Other chronic osteomyelitis, left ankle and foot; L03.116 Cellulitis of left lower limb; B95.62 Methicillin resistant Staphylococcus aureus infection as the cause of diseases classified elsewhere; Z79.4 Long term (current) use of insulin | CPT/HCPCS: 99183; G0277 ==

== ENCOUNTER → 2019-06-03 08:35 | Outpatient (CLI) | payer OTHER, MEDICAID, SELFPAY | PROVIDERS: PCP Family Medicine; Referring Provider Family Medicine; Visit Provider Family Medicine | DX: E11.621 Type 2 diabetes mellitus with foot ulcer (principal); L97.523 Non-pressure chronic ulcer of other part of left foot with necrosis of muscle; L97.521 Non-pressure chronic ulcer of other part of left foot limited to breakdown of skin; M86.672 Other chronic osteomyelitis, left ankle and foot; L03.116 Cellulitis of left lower limb; B95.62 Methicillin resistant Staphylococcus aureus infection as the cause of diseases classified elsewhere; Z79.4 Long term (current) use of insulin | CPT/HCPCS: 11042; 97605; 99183; G0277 ==

== ENCOUNTER → 2019-06-06 10:16 | Outpatient (CLI) | payer OTHER, MEDICAID, SELFPAY | PROVIDERS: PCP Family Medicine; Referring Provider Family Medicine; Visit Provider Family Medicine | DX: E11.621 Type 2 diabetes mellitus with foot ulcer (principal); L97.523 Non-pressure chronic ulcer of other part of left foot with necrosis of muscle; L97.521 Non-pressure chronic ulcer of other part of left foot limited to breakdown of skin; M86.672 Other chronic osteomyelitis, left ankle and foot; L03.116 Cellulitis of left lower limb; B95.62 Methicillin resistant Staphylococcus aureus infection as the cause of diseases classified elsewhere; Z79.4 Long term (current) use of insulin | CPT/HCPCS: 97605; 99183; G0277 ==

== ENCOUNTER → 2019-06-07 08:55 | Outpatient (CLI) | payer OTHER, MEDICAID, SELFPAY | PROVIDERS: PCP Family Medicine; Referring Provider Family Medicine; Visit Provider Family Medicine | DX: E11.621 Type 2 diabetes mellitus with foot ulcer (principal); L97.523 Non-pressure chronic ulcer of other part of left foot with necrosis of muscle; L97.521 Non-pressure chronic ulcer of other part of left foot limited to breakdown of skin; M86.672 Other chronic osteomyelitis, left ankle and foot; Z79.4 Long term (current) use of insulin; Z72.0 Tobacco use; L03.116 Cellulitis of left lower limb; B95.62 Methicillin resistant Staphylococcus aureus infection as the cause of diseases classified elsewhere | CPT/HCPCS: 99183; G0277 ==

== ENCOUNTER → 2019-06-08 15:50 | Outpatient (CLI) | payer OTHER, MEDICAID, SELFPAY | PROVIDERS: PCP Family Medicine; Referring Provider Family Medicine; Visit Provider Family Medicine | DX: E11.621 Type 2 diabetes mellitus with foot ulcer (principal); L97.523 Non-pressure chronic ulcer of other part of left foot with necrosis of muscle; L97.521 Non-pressure chronic ulcer of other part of left foot limited to breakdown of skin; M86.672 Other chronic osteomyelitis, left ankle and foot; Z79.4 Long term (current) use of insulin; Z72.0 Tobacco use; L03.116 Cellulitis of left lower limb; B95.62 Methicillin resistant Staphylococcus aureus infection as the cause of diseases classified elsewhere | CPT/HCPCS: 99183; G0277 ==

== ENCOUNTER → 2019-06-09 08:36 | Outpatient (CLI) | payer OTHER, MEDICAID, SELFPAY | PROVIDERS: PCP Family Medicine; Referring Provider Family Medicine; Visit Provider Family Medicine | DX: E11.621 Type 2 diabetes mellitus with foot ulcer (principal); L97.523 Non-pressure chronic ulcer of other part of left foot with necrosis of muscle; L97.521 Non-pressure chronic ulcer of other part of left foot limited to breakdown of skin; M86.672 Other chronic osteomyelitis, left ankle and foot; Z79.4 Long term (current) use of insulin; L03.116 Cellulitis of left lower limb; B95.62 Methicillin resistant Staphylococcus aureus infection as the cause of diseases classified elsewhere | CPT/HCPCS: 11042; 99183; G0277 ==

== ENCOUNTER → 2019-06-10 15:52 | Outpatient (CLI) | payer OTHER, MEDICAID, SELFPAY | PROVIDERS: PCP Family Medicine; Referring Provider Family Medicine; Visit Provider Family Medicine | DX: E11.621 Type 2 diabetes mellitus with foot ulcer (principal); L97.523 Non-pressure chronic ulcer of other part of left foot with necrosis of muscle; L97.521 Non-pressure chronic ulcer of other part of left foot limited to breakdown of skin; M86.672 Other chronic osteomyelitis, left ankle and foot; Z79.4 Long term (current) use of insulin; Z72.0 Tobacco use; L03.116 Cellulitis of left lower limb; B95.62 Methicillin resistant Staphylococcus aureus infection as the cause of diseases classified elsewhere | CPT/HCPCS: 99183; G0277 ==

== ENCOUNTER → 2019-06-13 08:38 | Outpatient (CLI) | payer OTHER, MEDICAID, SELFPAY | PROVIDERS: PCP Family Medicine; Referring Provider Family Medicine; Visit Provider Family Medicine | DX: E11.621 Type 2 diabetes mellitus with foot ulcer (principal); L97.523 Non-pressure chronic ulcer of other part of left foot with necrosis of muscle; L97.521 Non-pressure chronic ulcer of other part of left foot limited to breakdown of skin; M86.672 Other chronic osteomyelitis, left ankle and foot; Z79.4 Long term (current) use of insulin; Z72.0 Tobacco use; L03.116 Cellulitis of left lower limb; B95.62 Methicillin resistant Staphylococcus aureus infection as the cause of diseases classified elsewhere; L97.525 Non-pressure chronic ulcer of other part of left foot with muscle involvement without evidence of necrosis; R60.0 Localized edema | CPT/HCPCS: 99183; 99213; G0277 ==

== ENCOUNTER → 2019-06-14 09:46 | Outpatient (CLI) | payer OTHER, MEDICAID, SELFPAY | PROVIDERS: PCP Family Medicine; Referring Provider Family Medicine; Visit Provider Family Medicine | DX: E11.621 Type 2 diabetes mellitus with foot ulcer (principal); L97.523 Non-pressure chronic ulcer of other part of left foot with necrosis of muscle; L97.521 Non-pressure chronic ulcer of other part of left foot limited to breakdown of skin; M86.672 Other chronic osteomyelitis, left ankle and foot; Z79.4 Long term (current) use of insulin; Z72.0 Tobacco use; L03.116 Cellulitis of left lower limb; B95.62 Methicillin resistant Staphylococcus aureus infection as the cause of diseases classified elsewhere | CPT/HCPCS: 99183; G0277 ==

== ENCOUNTER → 2019-06-15 14:56 | Outpatient (CLI) | payer OTHER, MEDICAID, SELFPAY | PROVIDERS: PCP Family Medicine; Referring Provider Family Medicine; Visit Provider Family Medicine | DX: E11.621 Type 2 diabetes mellitus with foot ulcer (principal); L97.523 Non-pressure chronic ulcer of other part of left foot with necrosis of muscle; L97.521 Non-pressure chronic ulcer of other part of left foot limited to breakdown of skin; M86.672 Other chronic osteomyelitis, left ankle and foot; Z79.4 Long term (current) use of insulin; Z72.0 Tobacco use; L03.116 Cellulitis of left lower limb; B95.62 Methicillin resistant Staphylococcus aureus infection as the cause of diseases classified elsewhere | CPT/HCPCS: 99183; G0277 ==

== ENCOUNTER → 2019-06-16 10:16 | Outpatient (CLI) | payer OTHER, MEDICAID, SELFPAY | PROVIDERS: PCP Family Medicine; Referring Provider Family Medicine; Visit Provider Family Medicine | DX: E11.621 Type 2 diabetes mellitus with foot ulcer (principal); L97.523 Non-pressure chronic ulcer of other part of left foot with necrosis of muscle; L97.521 Non-pressure chronic ulcer of other part of left foot limited to breakdown of skin; M86.672 Other chronic osteomyelitis, left ankle and foot; Z79.4 Long term (current) use of insulin; Z72.0 Tobacco use; L03.116 Cellulitis of left lower limb; B95.62 Methicillin resistant Staphylococcus aureus infection as the cause of diseases classified elsewhere | CPT/HCPCS: 99183; G0277 ==

== ENCOUNTER → 2019-06-17 14:52 | Outpatient (CLI) | payer OTHER, MEDICAID, SELFPAY | PROVIDERS: PCP Family Medicine; Referring Provider Family Medicine; Visit Provider Family Medicine | DX: E11.621 Type 2 diabetes mellitus with foot ulcer (principal); L97.523 Non-pressure chronic ulcer of other part of left foot with necrosis of muscle; L97.521 Non-pressure chronic ulcer of other part of left foot limited to breakdown of skin; M86.672 Other chronic osteomyelitis, left ankle and foot; Z79.4 Long term (current) use of insulin; Z72.0 Tobacco use; L03.116 Cellulitis of left lower limb; B95.62 Methicillin resistant Staphylococcus aureus infection as the cause of diseases classified elsewhere | CPT/HCPCS: 11042; 99183; G0277 ==

== ENCOUNTER → 2019-06-20 08:33 | Outpatient (CLI) | payer OTHER, MEDICAID, SELFPAY | PROVIDERS: PCP Family Medicine; Referring Provider Family Medicine; Visit Provider Family Medicine | DX: E11.621 Type 2 diabetes mellitus with foot ulcer (principal); L97.523 Non-pressure chronic ulcer of other part of left foot with necrosis of muscle; L97.521 Non-pressure chronic ulcer of other part of left foot limited to breakdown of skin; M86.672 Other chronic osteomyelitis, left ankle and foot; Z79.4 Long term (current) use of insulin; Z72.0 Tobacco use; L97.525 Non-pressure chronic ulcer of other part of left foot with muscle involvement without evidence of necrosis | CPT/HCPCS: 99183; 99213; G0277 ==

== ENCOUNTER → 2019-06-21 10:29 | Outpatient (CLI) | payer OTHER, MEDICAID, SELFPAY | PROVIDERS: PCP Family Medicine; Referring Provider Family Medicine; Visit Provider Family Medicine | DX: E11.621 Type 2 diabetes mellitus with foot ulcer (principal); L97.523 Non-pressure chronic ulcer of other part of left foot with necrosis of muscle; L97.521 Non-pressure chronic ulcer of other part of left foot limited to breakdown of skin; M86.672 Other chronic osteomyelitis, left ankle and foot; Z79.4 Long term (current) use of insulin; Z72.0 Tobacco use; L97.525 Non-pressure chronic ulcer of other part of left foot with muscle involvement without evidence of necrosis | CPT/HCPCS: 99183; 99213; G0277 ==

== ENCOUNTER → 2019-06-22 11:12 | Outpatient (CLI) | payer OTHER, MEDICAID, SELFPAY | PROVIDERS: PCP Family Medicine; Referring Provider Family Medicine; Visit Provider Family Medicine | DX: E11.621 Type 2 diabetes mellitus with foot ulcer (principal); L97.523 Non-pressure chronic ulcer of other part of left foot with necrosis of muscle; L97.521 Non-pressure chronic ulcer of other part of left foot limited to breakdown of skin; M86.672 Other chronic osteomyelitis, left ankle and foot; Z79.4 Long term (current) use of insulin; Z72.0 Tobacco use; L97.525 Non-pressure chronic ulcer of other part of left foot with muscle involvement without evidence of necrosis | CPT/HCPCS: 99183; 99213; G0277 ==

== ENCOUNTER → 2019-06-23 09:24 | Outpatient (CLI) | payer OTHER, MEDICAID, SELFPAY | PROVIDERS: PCP Family Medicine; Referring Provider Family Medicine; Visit Provider Family Medicine | DX: E11.621 Type 2 diabetes mellitus with foot ulcer (principal); L97.525 Non-pressure chronic ulcer of other part of left foot with muscle involvement without evidence of necrosis; L97.521 Non-pressure chronic ulcer of other part of left foot limited to breakdown of skin; M86.672 Other chronic osteomyelitis, left ankle and foot; Z79.4 Long term (current) use of insulin; Z72.0 Tobacco use | CPT/HCPCS: 11042; 15275; 99183; G0277; Q4132 ==

== ENCOUNTER → 2019-06-24 11:43 | Outpatient (CLI) | payer OTHER, MEDICAID, SELFPAY | PROVIDERS: PCP Family Medicine; Referring Provider Family Medicine; Visit Provider Family Medicine | DX: E11.621 Type 2 diabetes mellitus with foot ulcer (principal); L97.325 Non-pressure chronic ulcer of left ankle with muscle involvement without evidence of necrosis; R60.0 Localized edema; L97.525 Non-pressure chronic ulcer of other part of left foot with muscle involvement without evidence of necrosis; L97.521 Non-pressure chronic ulcer of other part of left foot limited to breakdown of skin; M86.672 Other chronic osteomyelitis, left ankle and foot; Z79.4 Long term (current) use of insulin; Z72.0 Tobacco use | CPT/HCPCS: 99183; 99212; G0277 ==

== ENCOUNTER → 2019-06-27 08:53 | Outpatient (CLI) | payer OTHER, MEDICAID, SELFPAY | PROVIDERS: PCP Family Medicine; Referring Provider Family Medicine; Visit Provider Family Medicine | DX: E11.621 Type 2 diabetes mellitus with foot ulcer (principal); L97.525 Non-pressure chronic ulcer of other part of left foot with muscle involvement without evidence of necrosis; L97.521 Non-pressure chronic ulcer of other part of left foot limited to breakdown of skin; M86.672 Other chronic osteomyelitis, left ankle and foot; Z79.4 Long term (current) use of insulin; Z72.0 Tobacco use; R60.0 Localized edema | CPT/HCPCS: 99183; 99212; G0277 ==

== ENCOUNTER → 2019-06-28 09:30 | Outpatient (CLI) | payer OTHER, MEDICAID, SELFPAY | PROVIDERS: PCP Family Medicine; Referring Provider Family Medicine; Visit Provider Family Medicine | DX: E11.621 Type 2 diabetes mellitus with foot ulcer (principal); L97.525 Non-pressure chronic ulcer of other part of left foot with muscle involvement without evidence of necrosis; L97.521 Non-pressure chronic ulcer of other part of left foot limited to breakdown of skin; M86.672 Other chronic osteomyelitis, left ankle and foot; Z79.4 Long term (current) use of insulin; Z72.0 Tobacco use | CPT/HCPCS: 36415; 83036; 85651; 86140; 99183; G0277 ==

== ENCOUNTER → 2019-06-28 11:27 | Outpatient (CLI) | payer OTHER, MEDICAID, SELFPAY ==
[2019-06-28 12:17] LABS: Hemoglobin A1C% w Est Avg Glu 9.5 % (4.0-6.0)
[2019-06-28 12:32] LABS: Erythrocyte Sedimentation Rate 18 MM/HR (0-15)
[2019-06-28 12:47] LABS: C-Reactive Protein Quant 0.9 mg/dL (<1.0)
== END ==
PROVIDERS: PCP Family Medicine; Referring Provider Family Medicine; Visit Provider Family Medicine
DX: M86.672 Other chronic osteomyelitis, left ankle and foot (principal); E11.621 Type 2 diabetes mellitus with foot ulcer; L97.525 Non-pressure chronic ulcer of other part of left foot with muscle involvement without evidence of necrosis
CPT/HCPCS: 36415; 83036; 85651; 86140

== ENCOUNTER → 2019-06-29 11:31 | Outpatient (CLI) | payer OTHER, MEDICAID, SELFPAY | PROVIDERS: PCP Family Medicine; Referring Provider Family Medicine; Visit Provider Family Medicine | DX: E11.621 Type 2 diabetes mellitus with foot ulcer (principal); L97.525 Non-pressure chronic ulcer of other part of left foot with muscle involvement without evidence of necrosis; L97.521 Non-pressure chronic ulcer of other part of left foot limited to breakdown of skin; M86.672 Other chronic osteomyelitis, left ankle and foot; Z72.0 Tobacco use | CPT/HCPCS: 99183; 99212; G0277 ==

== ENCOUNTER → 2019-06-30 10:18 | Outpatient (CLI) | payer OTHER, MEDICAID, SELFPAY | PROVIDERS: PCP Family Medicine; Referring Provider Family Medicine; Visit Provider Family Medicine | DX: E11.621 Type 2 diabetes mellitus with foot ulcer (principal); L97.525 Non-pressure chronic ulcer of other part of left foot with muscle involvement without evidence of necrosis; L97.521 Non-pressure chronic ulcer of other part of left foot limited to breakdown of skin; M86.672 Other chronic osteomyelitis, left ankle and foot; Z79.4 Long term (current) use of insulin; Z72.0 Tobacco use | CPT/HCPCS: 99183; G0277 ==

== ENCOUNTER → 2019-07-01 10:34 | Outpatient (CLI) | payer OTHER, MEDICAID, SELFPAY | PROVIDERS: PCP Family Medicine; Referring Provider Family Medicine; Visit Provider Family Medicine | DX: E11.621 Type 2 diabetes mellitus with foot ulcer (principal); L97.525 Non-pressure chronic ulcer of other part of left foot with muscle involvement without evidence of necrosis; L97.521 Non-pressure chronic ulcer of other part of left foot limited to breakdown of skin; M86.672 Other chronic osteomyelitis, left ankle and foot; Z79.4 Long term (current) use of insulin; Z72.0 Tobacco use | CPT/HCPCS: 11042; 15275; 99183; G0277; Q4132 ==

== ENCOUNTER → 2019-07-04 09:10 | Outpatient (CLI) | payer OTHER, MEDICAID, SELFPAY | PROVIDERS: PCP Family Medicine; Referring Provider Family Medicine; Visit Provider Family Medicine | DX: E11.621 Type 2 diabetes mellitus with foot ulcer (principal); L97.521 Non-pressure chronic ulcer of other part of left foot limited to breakdown of skin; M86.672 Other chronic osteomyelitis, left ankle and foot; Z79.4 Long term (current) use of insulin; Z72.0 Tobacco use | CPT/HCPCS: 99183; 99213; G0277 ==

== ENCOUNTER → 2019-07-05 09:22 | Outpatient (CLI) | payer OTHER, MEDICAID, SELFPAY | PROVIDERS: PCP Family Medicine; Referring Provider Family Medicine; Visit Provider Family Medicine | DX: E11.621 Type 2 diabetes mellitus with foot ulcer (principal); L97.521 Non-pressure chronic ulcer of other part of left foot limited to breakdown of skin; M86.672 Other chronic osteomyelitis, left ankle and foot; Z79.4 Long term (current) use of insulin; Z72.0 Tobacco use | CPT/HCPCS: 99183; G0277 ==

== ENCOUNTER → 2019-07-06 15:29 | Outpatient (CLI) | payer OTHER, MEDICAID, SELFPAY | PROVIDERS: PCP Family Medicine; Referring Provider Family Medicine; Visit Provider Family Medicine | DX: E11.621 Type 2 diabetes mellitus with foot ulcer (principal); L97.521 Non-pressure chronic ulcer of other part of left foot limited to breakdown of skin; M86.672 Other chronic osteomyelitis, left ankle and foot; Z79.4 Long term (current) use of insulin; Z72.0 Tobacco use | CPT/HCPCS: 99183; G0277 ==

== ENCOUNTER → 2019-07-07 09:19 | Outpatient (CLI) | payer OTHER, MEDICAID, SELFPAY | PROVIDERS: PCP Family Medicine; Referring Provider Family Medicine; Visit Provider Family Medicine | DX: E11.621 Type 2 diabetes mellitus with foot ulcer (principal); L97.521 Non-pressure chronic ulcer of other part of left foot limited to breakdown of skin; M86.672 Other chronic osteomyelitis, left ankle and foot; Z79.4 Long term (current) use of insulin; Z72.0 Tobacco use | CPT/HCPCS: 99183; G0277 ==

== ENCOUNTER → 2019-07-08 10:51 | Outpatient (CLI) | payer OTHER, MEDICAID, SELFPAY | PROVIDERS: PCP Family Medicine; Referring Provider Family Medicine; Visit Provider Family Medicine | DX: E11.621 Type 2 diabetes mellitus with foot ulcer (principal); L97.521 Non-pressure chronic ulcer of other part of left foot limited to breakdown of skin; M86.672 Other chronic osteomyelitis, left ankle and foot; Z79.4 Long term (current) use of insulin; Z72.0 Tobacco use | CPT/HCPCS: 11042; 15275; 99183; G0277; Q4132 ==

== ENCOUNTER → 2019-07-11 08:53 | Outpatient (CLI) | payer OTHER, MEDICAID, SELFPAY | PROVIDERS: PCP Family Medicine; Referring Provider Family Medicine; Visit Provider Family Medicine | DX: E11.621 Type 2 diabetes mellitus with foot ulcer (principal); L97.521 Non-pressure chronic ulcer of other part of left foot limited to breakdown of skin; M86.672 Other chronic osteomyelitis, left ankle and foot; Z79.4 Long term (current) use of insulin; Z72.0 Tobacco use | CPT/HCPCS: 99183; 99213; G0277 ==

== ENCOUNTER → 2019-07-12 08:51 | Outpatient (CLI) | payer OTHER, MEDICAID, SELFPAY | PROVIDERS: PCP Family Medicine; Referring Provider Family Medicine; Visit Provider Family Medicine | DX: E11.621 Type 2 diabetes mellitus with foot ulcer (principal); L97.521 Non-pressure chronic ulcer of other part of left foot limited to breakdown of skin | CPT/HCPCS: 99213 ==

== ENCOUNTER → 2019-07-13 10:00 | Outpatient (CLI) | payer OTHER, MEDICAID, SELFPAY | PROVIDERS: PCP Family Medicine; Referring Provider Family Medicine; Visit Provider Family Medicine | DX: E11.621 Type 2 diabetes mellitus with foot ulcer (principal); L97.521 Non-pressure chronic ulcer of other part of left foot limited to breakdown of skin; M86.672 Other chronic osteomyelitis, left ankle and foot; Z79.4 Long term (current) use of insulin; Z72.0 Tobacco use | CPT/HCPCS: 99183; G0277 ==

== ENCOUNTER → 2019-07-14 09:18 | Outpatient (CLI) | payer OTHER, MEDICAID, SELFPAY | PROVIDERS: PCP Family Medicine; Referring Provider Family Medicine; Visit Provider Family Medicine | DX: E11.621 Type 2 diabetes mellitus with foot ulcer (principal); L97.525 Non-pressure chronic ulcer of other part of left foot with muscle involvement without evidence of necrosis; M86.672 Other chronic osteomyelitis, left ankle and foot; L97.521 Non-pressure chronic ulcer of other part of left foot limited to breakdown of skin; M14.672 Charcot's joint, left ankle and foot; Z79.4 Long term (current) use of insulin; L97.523 Non-pressure chronic ulcer of other part of left foot with necrosis of muscle; Z72.0 Tobacco use; L53.9 Erythematous condition, unspecified | CPT/HCPCS: 11042; 11043; 11046; 36415; 80053; 85025; 85651; 86140; 99183; G0277 ==

== ENCOUNTER → 2019-07-14 13:23 | Outpatient (CLI) | payer OTHER, MEDICAID, SELFPAY ==
[2019-07-14 15:15] LABS: Add Manual Diff / Slide Review NO; Basophils Absolute Auto 100 /uL (0-100); Basophils Percent Auto 0.7 % (0-2); Eosinophils Absolute Auto 400 /uL (0-450); Eosinophils Percent Auto 4.5 % (2-4); Hemoglobin 13.9 g/dL (13.5-17.5); Lymphocytes Absolute Auto 1300 /uL (1100-4500); Mean Corpuscular HGB Conc 33.1 % (30-36); Mean Corpuscular Hemoglobin 28.9 PG (26-34); Mean Corpuscular Volume 87.4 fL (80-100); Monocytes Absolute Auto 600 /uL (0-900); Monocytes Percent Auto 7.2 % (3-14); Neutrophils Absolute Auto 5600 /uL (1500-7000); Neutrophils Percent Auto 70.6 % (50-75); Platelet Count 220 X10^3/uL (150-400); Red Blood Cell Count 4.81 X10^6/uL (4.5-5.9); White Blood Cell Count 7.9 X10^3/uL (4.5-11.0)
[2019-07-14 15:26] LABS: Erythrocyte Sedimentation Rate 17 MM/HR (0-15)
[2019-07-14 15:52] LABS: Alanine Aminotransferase 14 IU/L (<50); Albumin Globulin Ratio 1.1 (1.0-2.8); Alkaline Phosphatase 84 U/L (38-126); Aspartate Aminotransferase 18 IU/L (17-59); BUN Creatinine Ratio 18.9 (6-22); Bilirubin Total 0.4 mg/dL (0.2-1.3); Blood Urea Nitrogen 20 mg/dL (9-20); C-Reactive Protein Quant 1.6 mg/dL (<1.0); Carbon Dioxide 27 mmol/L (22-32); Chloride 98 mmol/L (98-107); Estimated Glomerular Filt Rate > 60.0 mL/min (>60); Globulin 3.5 g/dL (1.7-4.1); Glucose 367 mg/dL (70-100); HEMOLYSIS < 15 (0-50); Potassium 4.2 mmol/L (3.4-5.1); Sodium 135 mmol/L (137-145); Total Protein 7.5 g/dL (6.3-8.2)
== END ==
PROVIDERS: PCP Family Medicine; Referring Provider Family Medicine; Visit Provider Family Medicine
DX: E11.621 Type 2 diabetes mellitus with foot ulcer (principal); L97.523 Non-pressure chronic ulcer of other part of left foot with necrosis of muscle; L53.9 Erythematous condition, unspecified
CPT/HCPCS: 36415; 80053; 85025; 85651; 86140

== ENCOUNTER → 2019-07-15 11:37 | Outpatient (CLI) | payer OTHER, MEDICAID, SELFPAY | PROVIDERS: PCP Family Medicine; Referring Provider Family Medicine; Visit Provider Family Medicine | DX: E11.621 Type 2 diabetes mellitus with foot ulcer (principal); L97.523 Non-pressure chronic ulcer of other part of left foot with necrosis of muscle; M86.672 Other chronic osteomyelitis, left ankle and foot; Z79.4 Long term (current) use of insulin; Z72.0 Tobacco use; L53.9 Erythematous condition, unspecified | CPT/HCPCS: 99183; G0277 ==

== ENCOUNTER → 2019-07-18 09:42 | Outpatient (CLI) | payer OTHER, MEDICAID, SELFPAY | PROVIDERS: PCP Family Medicine; Referring Provider Family Medicine; Visit Provider Family Medicine | DX: E11.621 Type 2 diabetes mellitus with foot ulcer (principal); L97.523 Non-pressure chronic ulcer of other part of left foot with necrosis of muscle; M86.672 Other chronic osteomyelitis, left ankle and foot; Z79.4 Long term (current) use of insulin; Z72.0 Tobacco use; L53.9 Erythematous condition, unspecified | CPT/HCPCS: 99183; G0277 ==

== ENCOUNTER → 2019-07-21 12:06 | Outpatient (CLI) | payer OTHER, MEDICAID, SELFPAY | PROVIDERS: PCP Family Medicine; Referring Provider Family Medicine; Visit Provider Family Medicine | DX: E11.621 Type 2 diabetes mellitus with foot ulcer (principal); L97.523 Non-pressure chronic ulcer of other part of left foot with necrosis of muscle; L97.525 Non-pressure chronic ulcer of other part of left foot with muscle involvement without evidence of necrosis | CPT/HCPCS: 11043; 15275; Q4132 ==

== ENCOUNTER → 2019-07-25 10:34 | Outpatient (CLI) | payer OTHER, MEDICAID, SELFPAY | PROVIDERS: PCP Family Medicine; Referring Provider Family Medicine; Visit Provider Family Medicine | DX: E11.621 Type 2 diabetes mellitus with foot ulcer (principal); L97.523 Non-pressure chronic ulcer of other part of left foot with necrosis of muscle; L97.525 Non-pressure chronic ulcer of other part of left foot with muscle involvement without evidence of necrosis; R60.0 Localized edema | CPT/HCPCS: 99213 ==

== ENCOUNTER → 2019-07-28 09:54 | Outpatient (CLI) | payer OTHER, MEDICAID, SELFPAY | PROVIDERS: PCP Family Medicine; Referring Provider Family Medicine; Visit Provider Family Medicine | DX: E11.621 Type 2 diabetes mellitus with foot ulcer (principal); L97.523 Non-pressure chronic ulcer of other part of left foot with necrosis of muscle; L97.521 Non-pressure chronic ulcer of other part of left foot limited to breakdown of skin | CPT/HCPCS: 15275; 97597; Q4132 ==

== ENCOUNTER → 2019-08-01 11:28 | Outpatient (CLI) | payer OTHER, MEDICAID, SELFPAY | PROVIDERS: PCP Family Medicine; Referring Provider Family Medicine; Visit Provider Family Medicine | DX: E11.621 Type 2 diabetes mellitus with foot ulcer (principal); L97.523 Non-pressure chronic ulcer of other part of left foot with necrosis of muscle; L97.521 Non-pressure chronic ulcer of other part of left foot limited to breakdown of skin | CPT/HCPCS: 99214 ==

== ENCOUNTER → 2019-08-02 11:01 | Outpatient (CLI) | payer OTHER, MEDICAID, SELFPAY | PROVIDERS: PCP Family Medicine; Referring Provider Family Medicine; Visit Provider Family Medicine | DX: E11.621 Type 2 diabetes mellitus with foot ulcer (principal); M86.672 Other chronic osteomyelitis, left ankle and foot; L97.525 Non-pressure chronic ulcer of other part of left foot with muscle involvement without evidence of necrosis; L97.521 Non-pressure chronic ulcer of other part of left foot limited to breakdown of skin; Z79.4 Long term (current) use of insulin | CPT/HCPCS: 11042; 99214 ==

== ENCOUNTER → 2019-08-02 11:42 | Outpatient (CLI) | payer OTHER, MEDICAID, SELFPAY ==
[2019-08-02 12:16] LABS: pH VBG 7.29 (7.33-7.43)
[2019-08-02 12:17] LABS: HCO3 VBG 29 mmol/L (23-28); Oxygen Saturation VBG 78 % (70-75); PCO2 VBG 60.4 mmHg (45-50); PO2 VBG 49 mmHg (35-45); Total CO2 VBG 31 mmol/L (24-29)
[2019-08-02 13:44] LABS: Alanine Aminotransferase 16 IU/L (<50); Albumin 4.1 g/dL (3.5-5.0); Albumin Globulin Ratio 1.1 (1.0-2.8); Alkaline Phosphatase 109 U/L (38-126); Aspartate Aminotransferase 18 IU/L (17-59); BUN Creatinine Ratio 22.7 (6-22); Bilirubin Total 0.3 mg/dL (0.2-1.3); Blood Urea Nitrogen 22 mg/dL (9-20); Calcium 9.3 mg/dL (8.4-10.2); Carbon Dioxide 28 mmol/L (22-32); Chloride 96 mmol/L (98-107); Estimated Glomerular Filt Rate > 60.0 mL/min (>60); Globulin 3.7 g/dL (1.7-4.1); Glucose 424 mg/dL (70-100); HEMOLYSIS < 15 (0-50); Potassium 4.6 mmol/L (3.4-5.1); Sodium 134 mmol/L (137-145); Total Protein 7.8 g/dL (6.3-8.2)
[2019-08-02 13:48] LABS: Ketones (Beta-Hydroxybutyrate) 0.09 mmol/L (<0.27)
[2019-08-03 16:14] LABS: Osmolality, Serum 308 mOsmol/kg (275-295)
== END ==
PROVIDERS: PCP Family Medicine; Referring Provider Family Medicine; Visit Provider Family Medicine
DX: R40.0 Somnolence (principal); E11.65 Type 2 diabetes mellitus with hyperglycemia; L08.89 Other specified local infections of the skin and subcutaneous tissue
CPT/HCPCS: 36415; 80053; 82009; 82805; 83930

== ENCOUNTER → 2019-08-04 10:10 | Outpatient (CLI) | payer OTHER, MEDICAID, SELFPAY | PROVIDERS: PCP Family Medicine; Referring Provider Family Medicine; Visit Provider Family Medicine | DX: E11.621 Type 2 diabetes mellitus with foot ulcer (principal); L97.525 Non-pressure chronic ulcer of other part of left foot with muscle involvement without evidence of necrosis | CPT/HCPCS: 99213 ==

== ENCOUNTER → 2019-08-09 11:13 | Outpatient (CLI) | payer OTHER, MEDICAID, SELFPAY | PROVIDERS: PCP Family Medicine; Referring Provider Family Medicine; Visit Provider Family Medicine | DX: E11.621 Type 2 diabetes mellitus with foot ulcer (principal); L97.523 Non-pressure chronic ulcer of other part of left foot with necrosis of muscle; L97.521 Non-pressure chronic ulcer of other part of left foot limited to breakdown of skin; M86.672 Other chronic osteomyelitis, left ankle and foot; M14.672 Charcot's joint, left ankle and foot; Z79.4 Long term (current) use of insulin; Z72.0 Tobacco use | CPT/HCPCS: 11042; 11043 ==

== ENCOUNTER → 2019-08-11 08:39 | Outpatient (CLI) | payer OTHER, MEDICAID, SELFPAY | PROVIDERS: PCP Family Medicine; Referring Provider Family Medicine; Visit Provider Family Medicine | DX: E11.621 Type 2 diabetes mellitus with foot ulcer (principal); L97.525 Non-pressure chronic ulcer of other part of left foot with muscle involvement without evidence of necrosis | CPT/HCPCS: 99213 ==

== ENCOUNTER → 2019-08-15 09:56 | Outpatient (CLI) | payer OTHER, MEDICAID, SELFPAY ==
[2019-08-15 11:17] LABS: Add Manual Diff / Slide Review NO; Basophils Absolute Auto 100 /uL (0-100); Eosinophils Absolute Auto 200 /uL (0-450); Eosinophils Percent Auto 2.5 % (2-4); Lymphocytes Absolute Auto 1300 /uL (1100-4500); Mean Corpuscular Hemoglobin 29.5 PG (26-34); Mean Corpuscular Volume 86.9 fL (80-100); Monocytes Absolute Auto 800 /uL (0-900); Monocytes Percent Auto 12.3 % (3-14); Neutrophils Absolute Auto 4300 /uL (1500-7000); Neutrophils Percent Auto 64.2 % (50-75); Platelet Count 236 X10^3/uL (150-400); Red Blood Cell Count 5.07 X10^6/uL (4.5-5.9); Red Cell Distribution Width 15.5 % (11.6-14.8); White Blood Cell Count 6.7 X10^3/uL (4.5-11.0)
[2019-08-15 11:33] LABS: Alanine Aminotransferase 15 IU/L (<50); Albumin Globulin Ratio 1.1 (1.0-2.8); Alkaline Phosphatase 110 U/L (38-126); Aspartate Aminotransferase 17 IU/L (17-59); BUN Creatinine Ratio 32.6 (6-22); Bilirubin Total 0.4 mg/dL (0.2-1.3); Blood Urea Nitrogen 29 mg/dL (9-20); C-Reactive Protein Quant 7.9 mg/dL (<1.0); Calcium 9.6 mg/dL (8.4-10.2); Carbon Dioxide 29 mmol/L (22-32); Chloride 96 mmol/L (98-107); Estimated Glomerular Filt Rate > 60.0 mL/min (>60); Globulin 3.8 g/dL (1.7-4.1); Glucose 385 mg/dL (70-100); HEMOLYSIS < 15 (0-50); Potassium 4.8 mmol/L (3.4-5.1); Sodium 135 mmol/L (137-145); Total Protein 7.8 g/dL (6.3-8.2)
[2019-08-15 11:38] LABS: Erythrocyte Sedimentation Rate 44 MM/HR (0-15)
== END ==
PROVIDERS: PCP Family Medicine; Referring Provider Family Medicine; Visit Provider Family Medicine
DX: L08.9 Local infection of the skin and subcutaneous tissue, unspecified (principal)
CPT/HCPCS: 36415; 80053; 85025; 85651; 86140

== ENCOUNTER → 2019-08-15 10:05 | Outpatient (CLI) | payer OTHER, MEDICAID, SELFPAY | PROVIDERS: PCP Family Medicine; Referring Provider Family Medicine; Visit Provider Family Medicine | DX: L08.9 Local infection of the skin and subcutaneous tissue, unspecified (principal); E11.621 Type 2 diabetes mellitus with foot ulcer; L97.524 Non-pressure chronic ulcer of other part of left foot with necrosis of bone; L97.521 Non-pressure chronic ulcer of other part of left foot limited to breakdown of skin; M86.672 Other chronic osteomyelitis, left ankle and foot; Z79.4 Long term (current) use of insulin; Z72.0 Tobacco use; Z79.2 Long term (current) use of antibiotics | CPT/HCPCS: 11042; 11044; 36415; 80053; 85025; 85651; 86140; 87070; 87075; 87076; 87077; 87147; 87176; 87186; 87205; 99214 ==

== ENCOUNTER → 2019-08-18 09:36 | Outpatient (CLI) | payer OTHER, MEDICAID, SELFPAY | PROVIDERS: PCP Family Medicine; Referring Provider Family Medicine; Visit Provider Family Medicine | DX: E11.621 Type 2 diabetes mellitus with foot ulcer (principal); L97.524 Non-pressure chronic ulcer of other part of left foot with necrosis of bone | CPT/HCPCS: 99213 ==